=== PATIENT | female | born 1945 | race Caucasian/White ===

== ENCOUNTER 2021-02-13 10:23 | Inpatient (IN) | payer MEDICARE, OTHER ==
[~2021-02-13] VITALS: Ht 144.8 cm; Wt 72.5 kg
[~2021-02-13 10:23] MED LIST: DEXAMETHASONE SOD PHOS 4 MG/ML VIAL ONE; IV RINGERS,LACTATED 1000ML 1,000 ML IV SCH; LIDOCAINE 2% PF 5 ML VIAL. ONE; MORPHINE SULFATE 2 MG/ML INJ. IVP PRN; ONDANSETRON PF 4 MG/2 ML VIAL. ONE; PROCHLORPERAZINE 10 MG/2 ML VIAL. IVP PRN; PROPOFOL 10 MG/ML (20ML) VIAL. IV ONE; ROCURONIUM 50 MG/5 ML VIAL. ONE; SUCCINYLCHOLINE 200 MG/10 ML VIAL. ONE; ceFAZolin SODIUM IV Push 1 GM VIAL. IVP PRN; fentaNYL PF VIAL 100 MCG/2 ML VIAL IVP PRN; fentaNYL PF VIAL 100 MCG/2 ML VIAL ONE
[2021-02-13 11:08] VITALS: BP 139/65
--- NOTE | 2021-02-13 11:48 | PDOC1 ---
History and Physical Date of Admission Date of Admission DATE: 02/13/21 TIME: 11:45 History of Present Illness History of Present Illness The patient is a 75 year old female who was referred with a large ventral hernia. Past Medical History Past Medical History rheumatoid arthritis, depression, hypertension, breast cancer Past Surgical History Past Surgical History sigmoid colectomy with colostomy, colostomy takedown, hernia repair, lumpectomy, hysterectomy Social History Smoke: Quit Current Medications Current Medications Current Medications Fentanyl Citrate (Fentanyl 2ml Vial) 25 mcg PRN Q5MIN PRN IVP MILD PAIN 1-3; Start 02/13/21 at 06:00; Stop 02/14/21 at 05:59; Status UNV Fentanyl Citrate (Fentanyl 2ml Vial) 50 mcg PRN Q5MIN PRN IVP MODERATE PAIN 4- 6; Start 02/13/21 at 06:00; Stop 02/14/21 at 05:59; Status UNV Morphine Sulfate (Morphine Sulfate) 1 mg PRN Q10MIN PRN IVP SEVERE PAIN 7-10; Start 02/13/21 at 06:00; Stop 02/14/21 at 05:59; Status UNV Ringer's Solution 1,000 ml @ 30 mls/hr Q24H IV ; Start 02/13/21 at 06:00; Stop 02/13/21 at 17:59; Status UNV Hydromorphone HCl (Dilaudid) 0.5 mg PRN Q10MIN PRN IVP SEVERE PAIN 7-10, 2nd CHOICE; Start 02/13/21 at 06:00; Stop 02/14/21 at 05:59; Status UNV Prochlorperazine Edisylate (Compazine) 5 mg PACU PRN PRN IVP NAUSEA, MRX1; Start 02/13/21 at 06:00; Stop 02/14/21 at 05:59; Status UNV Propofol (Diprivan) 200 mg STK-MED ONCE IV ; Start 02/13/21 at 09:36; Stop 02/13/21 at 09:36; Status DC Lidocaine HCl (Lidocaine Pf 2% Vial) 5 ml STK-MED ONCE .ROUTE ; Start 02/13/21 at 09:36; Stop 02/13/21 at 09:36; Status DC Dexamethasone Sodium Phosphate (Decadron) 4 mg STK-MED ONCE .ROUTE ; Start 02/13/21 at 09:36; Stop 02/13/21 at 09:36; Status DC Ondansetron HCl (Zofran) 4 mg STK-MED ONCE .ROUTE ; Start 02/13/21 at 09:36; Stop 02/13/21 at 09:36; Status DC Rocuronium [place] (Zemuron) 50 mg STK-MED ONCE .ROUTE ; Start 02/13/21 at 09:36; Stop 02/13/21 at 09:36; Status DC Succinylcholine Chloride (Anectine) 200 mg STK-MED ONCE .ROUTE ; Start 02/13/21 at 09:38; Stop 02/13/21 at 09:38; Status DC Cefazolin Sodium/ Dextrose 0 ml @ As Directed STK-MED ONCE IV ; Start 02/13/21 at 09:45; Stop 02/13/21 at 09:45; Status DC Cefazolin Sodium (Ancef) 1 gm 1X PREOP PRN IVP PRIOR TO PROCEDURE; Start 02/13/21 at 10:00; Status UNV ROS General: No: Chills, Night Sweats, Fatigue, Malaise, Appetite, Other PSYCHOLOGICAL ROS: No: Anxiety, Behavioral Disorder, Concentration difficultie, Decreased libido, Depression, Disorientation, Hallucinations, Hostility, Irritablity, Memory difficulties, Mood Swings, Obsessive thoughts, Physical abuse, Sexual abuse, Sleep disturbances, Suicidal ideation, Other Eyes: No Blurry vision, No Decreased vision, No Double vision, No Dry eyes, No Excessive tearing, No Eye Pain, No Itchy Eyes, No Loss of vision, No Photophobia, No Scotomata, No Uses contacts, No Uses glasses, No Other HEENT: No: Heacaches, Visual Changes, Hearing change, Nasal congestion, Nasal discharge, Oral lesions, Sinus pain, Sore Throat, Epistaxis, Sneezing, Snoring, Tinnitus, Vertigo, Vocal changes, Other ALLERGY AND IMMUNOLOGY: No: Hives, Insect Bite Sensitivity, Itchy/Watery Eyes, Nasal Congestion, Post Nasal Drip, Seasonal Allergies, Other Hematological and Lymphatic: No: Bleeding Problems, Blood Clots, Blood Transfusions, Brusing, Night Sweats, Pallor, Swollen Lymph Nodes, Other ENDOCRINE: No: Breast Changes, Galactorrhea, Hair Pattern Changes, Hot Flashes, Malaise/lethargy, Mood Swings, Palpitations, Polydipsia/polyuria, Skin Changes, Temperature Intolerance, Unexpected Weight Changes, Other Breast: No New/Changing Breast Lumps, No Nipple changes, No Nipple discharge, No Other Respiratory: No: Cough, Hemoptysis, Orthopnea, Pleuritic Pain, Shortness of breath, SOB with excertion, Sputum Changes, Stridor, Tachypnea, Wheezing, Other Cardiovascular: No Chest Pain, No Palpitations, No Orthopnea, No Paroxysmal Noc. Dyspnea, No Edema, No Lt Headedness, No Other Gastrointestinal: No Nausea, No Vomiting, No Abdominal Pain, No Diarrhea, No Constipation, No Melena, No Hematochezia, No Other Genitourinary: No Dysuria, No Frequency, No Incontinence, No Hematuria, No Retention, No Discharge, No Urgency, No Pain, No Flank Pain, No Other, No , No , No , No , No , No , No Musculoskeletal: No Gait Disturbance, No Joint Pain, No Joint Stiffness, No Joint Swelling, No Muscle Pain, No Muscular Weakness, No Pain In:, No Swelling In:, No Other Neurological: No Behavorial Changes, No Bowel/Bladder ControlChng, No Confusion, No Dizziness, No Gait Disturbance, No Headaches, No Impaired Coord/balance, No Memory Loss, No Numbness/Tingling, No Seizures, No Speech Problems, No Tremors, No Visual Changes, No Weakness, No Other Skin: No Dry Skin, No Eczema, No Hair Changes, No Lumps, No Mole Changes, No Mo ttling, No Nail Changes, No Pruritus, No Rash, No Skin Lesion Changes, No Other, No Acne Physical Exam General: Alert, Oriented X3, Cooperative HEENT: Atraumatic Heart: RRR Abdomen: Soft (large ventral hernia palpable) Extremities: No clubbing, No cyanosis Skin: No rashes, No breakdown Neuro: Normal speech Psych/Mental Status: Mental status NL Vitals Vitals Vital Signs Date Time Temp Pulse Resp B/P (MAP) Pulse Ox O2 Delivery O2 Flow Rate FiO2 02/13/21 11:13 97.3 77 18 139/65 98 Room Air 97.3 VTE Prophylaxis Ordered VTE Prophylaxis Devices: No VTE Pharmacological Prophylaxi: Yes Assessment/Plan Assessment/Plan Plan for ventral hernia repair with mesh, likely to need a component separation. The details and risks of surgery were discussed with the patient. She understands and would like to proceed. Justifications for Admission Other Justification RAO PATTON MD Feb 13, 2021 11:48
[2021-02-13] MEDS ORDERED: fentaNYL PF VIAL 100 MCG/2 ML VIAL ONE ×2 (12:53→17:45)
[2021-02-13] MEDS ORDERED: ROCURONIUM 50 MG/5 ML VIAL. ONE (13:53)
[2021-02-13] MEDS ORDERED: HYDROmorphone 2 MG/ML VIAL ONE ×2 (15:42→17:45)
[2021-02-13] MEDS ORDERED: NEOSTIGMINE METHYLSULFATE 5 MG/5 ML SYRINGE. ONE (16:33)
[2021-02-13] MEDS ORDERED: GLYCOPYRROLATE 1 MG/5 ML VIAL. ONE (16:33)
--- NOTE | 2021-02-13 17:12 | PDOC4 ---
Operative Note Operative Note Operative Note: Preoperative Diagnosis: Ventral hernia Postoperative Diagnosis: Same Procedure: Ventral hernia repair with mesh, abdominal component separation Surgeon: [facility] Counsellor: Denisa Franklin FA Anesthesia: General EBL: 100 mL Specimen: None Drains: 19 Iraqi MILTON drain x2 Complications: None Indication: The patient is a 75-year-old female who is referred with multiple sizable abdominal hernias. She was offered surgical repair and the use of mesh was discussed. The risks of surgery were noted also which include bleeding, infection, recurrence, pain, mesh reaction, visceral injury, wound healing problems, anesthetic risk, potential need for additional surgery procedure. She understands and would like to proceed. In addition she is aware that she will likely require complete abdominal reconstruction due to the extensive nature of her hernias. Description: The patient was taken to the operating room and placed supine in the operating table. General anesthesia was performed. The abdomen is prepped with ChloraPrep and draped with sterile towels, sheets, and an Ioban. A vertical midline incision was made in the skin with a scalpel. Cautery dissection was carried down to the fascia. Complete anterior fascial dissection was performed with cautery allowing for full inspection. There was essentially complete breakdown of her midline with marked lateralization of her rectus muscles. The larger hernia sac was opened and the abdominal cavity was entered. An extensive lysis of adhesions was required to free up the anterior abdominal wall. There were multiple loops of small bowel and omentum that were densely adherent. The lysis of adhesions took approximately 1 to 1-1/2 hours. Following this we then performed a posterior component separation. The posterior fascial was mobilized bilaterally. We carried this dissection laterally as far as possible. We attempted to divide the transversus musculature however the patient had marked atrophy of her posterior layer. We were able to mobilize the posterior fascial layer laterally sufficient for closure of the posterior fascia for the majority of the abdomen. Along the inferior aspect the posterior layer was markedly degraded due to multiple prior surgeries. The posterior layer was developed superiorly to the level of the xiphoid and inferiorly to the pubic bone by means of the space of Retzius. A 27.[address] X 34[address] mesh was then placed over the posterior fascial layer. The mesh was sutured into position around its periphery using interrupted 0 Prolene stitches. Additional fixation to the anterior abdominal layer was performed using dissolvable tacks. The anterior fascia layer was then approximated over the mesh with running 1 PDS suture. Two 19 [place] MILTON drains were left over the anterior layer which exited the right and left lateral abdomen. They were secured to the skin with 2-0 silk. The deep subcutaneous tissue was approximated with interrupted 0 Vicryl sutures. The more superficial subcutaneous tissue was closed with 3-0 Vicryl. The skin was approximated with 4-0 Monocryl. Steri-Strips and a dressing were applied. The patient tolerated the procedure well and was sent to the recovery room in stable condition. At the end the case all counts were correct RAO PATTON MD Feb 13, 2021 17:12
[2021-02-13] MEDS ORDERED: NALOXONE 0.4 MG/ML VIAL. IV PRN (17:15)
[2021-02-13] MEDS ORDERED: 0.9 % SODIUM CHLORIDE 10 ML DISP.SYRIN. IV PRN (17:15)
[2021-02-13] MEDS: IV NORMAL SALINE 1000ML BAG 1,000 ML IV SCH (17:15)
--- NOTE | 2021-02-13 17:22 | RAD ---
Exam: Abdomen one view INDICATION: Postoperative abdominal operation, incorrect count TECHNIQUE: Supine view the abdomen Comparisons: None FINDINGS: There are 2 intra-abdominal drains noted within the abdomen. No other radiopaque foreign bodies are i dentified. Bowel gas pattern is nonobstructive. No suspicious masses or calcifications. Visualized osseous structures are unremarkable. IMPRESSION: No unexpected radiopaque foreign body identified. Electronically signed by: Moira Durham MD (02/13/2021 5:19 PM) DIONISIO
[2021-02-13] MEDS: ENOXAPARIN 40 MG/0.4 ML SYRINGE. SQ SCH (18:00)
[2021-02-13] MEDS: HYDROmorphone 2 MG/ML VIAL IVP PRN ×2 (18:02→18:18)
[2021-02-13] MEDS: fentaNYL PF VIAL 100 MCG/2 ML VIAL IVP PRN ×2 (18:11→18:23)
[2021-02-13 18:40] VITALS: BP 112/33
[2021-02-13 19:00] VITALS: BP 117/42
[2021-02-13] MEDS: IV 1/2 NORMAL SALINE 1,000 ML IV SCH (20:37)
[2021-02-13 23:00] VITALS: BP 155/62
[2021-02-13] MEDS: HYDROmorphone 12mg/30ml PCA 30 ML IV PRN (23:54)
[2021-02-14 03:00] VITALS: BP 143/57
[2021-02-14] MEDS: IV 1/2 NORMAL SALINE 1,000 ML IV SCH ×3 (03:15→18:09)
--- NOTE | 2021-02-14 04:04 | NUR ---
Patient in room upon this nurses arrival. Report received via day shift regarding ventral hernia repair today with Dr. Jung. Patient has midline surgical dressing to abdomen which is clean, dry and intact. MILTON drain to left lateral abdomen and right lateral abdomen, both draining sanguineous colored fluids. Left drain producing more than right. This nurse emptied 90ml at 2000, 60ml at 2100 and 60ml at 2200, all from left MILTON drain. Patient drowsy at 1930, answering yes and no questions. She became more alert through shift and required multiple education sessions on using SENIOR LIVING ADVISOR pump effectively. Patient resting comfortably at this time in bed. She has tolerated ice chips and sips of water per MD orders. was present upon arrival and is primary patient care nursing assistant. Patient is alert et oriented x 4 upon waking.
--- NOTE | 2021-02-14 05:59 | NUR ---
Left message with answering service reporting out put of 300ml from right MILTON drain and 10ml from right MILTON drain. Spoke with Dr. Bazzi, no new orders.
[2021-02-14 07:16] LABS: CALCIUM 7.9 mg/dL (8.5-10.1); CREATININE 1.3 mg/dL (0.6-1.0); GFR 39.7; POTASSIUM 4.4 mmol/L (3.5-5.1)
[2021-02-14 07:28] VITALS: BP 140/51
[2021-02-14] MEDS: IV NORMAL SALINE 1000ML BAG 1,000 ML IV SCH (08:02)
[2021-02-14] MEDS ORDERED: KETOROLAC 15 MG/ML VIAL. IVP ONE (09:15)
--- NOTE | 2021-02-14 10:01 | NUR ---
SW following. Discussed with RN, pt from home, 3L (does not use oxygen at home), NPO. Pt had surgery 02/13/21. Pain control. RN advised no SW needs at this time. SW will continue to follow.
[2021-02-14 10:49] VITALS: BP 135/53
--- NOTE | 2021-02-14 11:05 | PDOC ---
PROGRESS NOTES Date of Service DATE: 02/14/21 TIME: 11:04 Subjective Subjective significant pain Objective Objective Vital Signs Date Time Temp Pulse Resp B/P (MAP) Pulse Ox O2 Delivery O2 Flow Rate FiO2 02/14/21 10:49 98.9 102 20 135/53 (80) 93 Nasal Cannula 3.0 98.9 Intake and Output 02/14/21 07:00 Intake Total 200 ml Output Total 1170 ml Balance -970 ml Intake Oral 200 ml Output Urine Total 600 ml Drainage Total 370 ml Estimated Blood Loss 200 ml Physical Exam Abdomen: Soft (MILTON drains serosanguinous) Assessment Assessment S/P VHR, component separation Plan Plan of Care Out of bed, keep calhoun in for now until able to mobilize better, physical therapy, pain control Comment Review of Relevant I have reviewed the following items keely (where applicable) has been applied. Labs Laboratory Tests Test 02/13/21 20:29 02/14/21 06:15 Glucose (Fingerstick) 160 mg/dL (70-99) Sodium Level 139 mmol/L (136-145) Potassium Level 4.4 mmol/L (3.5-5.1) Chloride Level 106 mmol/L (98-107) Carbon Dioxide Level 24 mmol/L (21-32) Anion Gap 9 (6-14) Blood Urea Nitrogen 20 mg/dL (7-20) Creatinine 1.3 mg/dL (0.6-1.0) Estimated GFR (Cockcroft-Gault) 39.7 Glucose Level 183 mg/dL (70-99) Calcium Level 7.9 mg/dL (8.5-10.1) Laboratory Tests Test 02/13/21 20:29 02/14/21 06:15 Glucose (Fingerstick) 160 mg/dL (70-99) Sodium Level 139 mmol/L (136-145) Potassium Level 4.4 mmol/L (3.5-5.1) Chloride Level 106 mmol/L (98-107) Carbon Dioxide Level 24 mmol/L (21-32) Anion Gap 9 (6-14) Blood Urea Nitrogen 20 mg/dL (7-20) Creatinine 1.3 mg/dL (0.6-1.0) Estimated GFR (Cockcroft-Gault) 39.7 Glucose Level 183 mg/dL (70-99) Calcium Level 7.9 mg/dL (8.5-10.1) Medications Current Medications Fentanyl Citrate (Fentanyl 2ml Vial) 25 mcg PRN Q5MIN PRN IVP MILD PAIN 1-3 Last administered on 02/13/21at 18:23; Start 02/13/21 at 06:00; Stop 02/13/21 at 21:00; Status DC Fentanyl Citrate (Fentanyl 2ml Vial) 50 mcg PRN Q5MIN PRN IVP MODERATE PAIN 4-6 Last administered on 02/13/21at 17:53; Start 02/13/21 at 06:00; Stop 02/13/21 at 21:00; Status DC Morphine Sulfate (Morphine Sulfate) 1 mg PRN Q10MIN PRN IVP SEVERE PAIN 7-10; Start 02/13/21 at 06:00; Stop 02/13/21 at 21:00; Status DC Ringer's Solution 1,000 ml @ 30 mls/hr Q24H IV ; Start 02/13/21 at 06:00; Stop 02/13/21 at 18:00; Status DC Hydromorphone HCl (Dilaudid) 0.5 mg PRN Q10MIN PRN IVP SEVERE PAIN 7-10, 2nd CHOICE Last administered on 02/13/21at 18:18; Start 02/13/21 at 06:00; Stop 02/13/21 at 21:00; Status DC Prochlorperazine Edisylate (Compazine) 5 mg PACU PRN PRN IVP NAUSEA, MRX1; Start 02/13/21 at 06:00; Stop 02/13/21 at 21:00; Status DC Propofol (Diprivan) 200 mg STK-MED ONCE IV ; Start 02/13/21 at 09:36; Stop 02/13/21 at 09:36; Status DC Lidocaine HCl (Lidocaine Pf 2% Vial) 5 ml STK-MED ONCE .ROUTE ; Start 02/13/21 at 09:36; Stop 02/13/21 at 09:36; Status DC Dexamethasone Sodium Phosphate (Decadron) 4 mg STK-MED ONCE .ROUTE ; Start 02/13/21 at 09:36; Stop 02/13/21 at 09:36; Status DC Ondansetron HCl (Zofran) 4 mg STK-MED ONCE .ROUTE ; Start 02/13/21 at 09:36; Stop 02/13/21 at 09:36; Status DC Rocuronium [place] (Zemuron) 50 mg STK-MED ONCE .ROUTE ; Start 02/13/21 at 09:36; Stop 02/13/21 at 09:36; Status DC Succinylcholine Chloride (Anectine) 200 mg STK-MED ONCE .ROUTE ; Start 02/13/21 at 09:38; Stop 02/13/21 at 09:38; Status DC Cefazolin Sodium/ Dextrose 0 ml @ As Directed STK-MED ONCE IV ; Start 02/13/21 at 09:45; Stop 02/13/21 at 09:45; Status DC Cefazolin Sodium (Ancef) 1 gm 1X PREOP PRN IVP PRIOR TO PROCEDURE; Start 02/13/21 at 10:00; Stop 02/13/21 at 15:08; Status DC Fentanyl Citrate (Fentanyl 2ml Vial) 100 mcg STK-MED ONCE .ROUTE ; Start 02/13/21 at 12:53; Stop 02/13/21 at 12:53; Status DC Rocuronium [place] (Zemuron) 50 mg STK-MED ONCE .ROUTE ; Start 02/13/21 at 13:53; Stop 02/13/21 at 13:54; Status DC Fentanyl Citrate (Fentanyl 2ml Vial) 100 mcg STK-MED ONCE .ROUTE ; Start 02/13/21 at 09:38; Stop 02/13/21 at 15:05; Status DC Hydromorphone HCl (Dilaudid) 2 mg STK-MED ONCE .ROUTE ; Start 02/13/21 at 15:42; Stop 02/13/21 at 15:43; Status DC Glycopyrrolate (Robinul) 1 mg STK-MED ONCE .ROUTE ; Start 02/13/21 at 16:33; Stop 02/13/21 at 16:33; Status DC Neostigmine [place] (Neostigmine Methylsulfate) 5 mg STK-MED ONCE .ROUTE ; Start 02/13/21 at 16:33; Stop 02/13/21 at 16:33; Status DC Enoxaparin Sodium (Lovenox 40mg Syringe) 40 mg Q24H SQ ; Start 02/13/21 at 18:00 Sodium Chloride (Normal Saline Flush) 3 ml QSHIFT PRN IV AFTER MEDS AND BLOOD DRAWS; Start 02/13/21 at 17:15 Sodium Chloride 1,000 ml @ 100 mls/hr Q10H IV Last administered on 02/14/21at 08:07; Start 02/13/21 at 17:15 Naloxone HCl (Narcan) 0.4 mg PRN Q2MIN PRN IV SEE INSTRUCTIONS; Start 02/13/21 at 17:15 Sodium Chloride 1,000 ml @ 25 mls/hr Q24H IV ; Start 02/13/21 at 17:15 Hydromorphone HCl 30 ml @ 0 mls/hr CONT PRN PRN IV PER PROTOCOL Last administered on 02/13/21at 23:54; Start 02/13/21 at 17:15 Ondansetron HCl (Zofran) 4 mg PRN Q6HRS PRN IVP NAUESA, 1ST CHOICE; Start 02/13/21 at 17:15 Hydromorphone HCl (Dilaudid) 2 mg STK-MED ONCE .ROUTE ; Start 02/13/21 at 17:45; Stop 02/13/21 at 17:45; Status DC Fentanyl Citrate (Fentanyl 2ml Vial) 100 mcg STK-MED ONCE .ROUTE ; Start 02/13/21 at 17:45; Stop 02/13/21 at 17:46; Status DC Ketorolac Tromethamine (Toradol 15mg Vial) 15 mg 1X ONCE IVP Last administered on 02/14/21at 09:33; Start 02/14/21 at 09:15; Stop 02/14/21 at 09:19; Status DC Vitals/I & O Vital Sign - Last 24 Hours 02/13/21 02/13/21 02/13/21 02/13/21 11:08 11:13 17:24 17:53 Temp 97.3 97.3 97.7 97.3 97.3 97.7 Pulse 77 77 79 Resp 18 18 16 16 B/P (MAP) 139/65 113/57 Pulse Ox 98 98 97 97 O2 Delivery Room Air Simple Mask Simple Mask O2 Flow Rate 10 6.0 02/13/21 02/13/21 02/13/21 02/13/21 17:54 18:02 18:11 18:18 Pulse 95 Resp 14 14 16 16 B/P (MAP) 123/33 Pulse Ox 98 98 98 98 O2 Delivery Simple Mask Simple Mask BiPAP/CPAP Simple Mask O2 Flow Rate 6.0 6.0 3.0 3.0 02/13/21 02/13/21 02/13/21 02/13/21 18:23 18:40 19:00 20:10 Temp 98.4 98.4 Pulse 109 108 Resp 16 16 B/P (MAP) 112/33 (59) 117/42 (67) Pulse Ox 98 93 91 O2 Delivery Nasal Cannula Nasal Cannula Room Air Nasal Cannula O2 Flow Rate 3.0 3.0 2.0 02/13/21 02/13/21 02/13/21 02/13/21 20:30 20:31 20:32 20:33 Resp 16 16 16 Pulse Ox 93 95 O2 Delivery Nasal Cannula Room Air Room Air Simple Mask O2 Flow Rate 2.0 3.0 02/13/21 02/13/21 02/13/21 02/13/21 20:33 20:34 23:00 23:54 Temp 98.0 98.0 Pulse 111 Resp 16 16 16 B/P (MAP) 155/62 (93) Pulse Ox 95 95 94 O2 Delivery Room Air Room Air Nasal Cannula Nasal Cannula O2 Flow Rate 2.0 2.0 02/14/21 02/14/21 02/14/21 02/14/21 00:58 03:00 07:28 08:00 Temp 97.7 97.9 97.7 97.9 Pulse 108 110 Resp 16 16 22 B/P (MAP) 143/57 (85) 140/51 (80) Pulse Ox 2 96 94 O2 Delivery Nasal Cannula Nasal Cannula Nasal Cannula Nasal Cannula O2 Flow Rate 3.0 3.0 3.0 02/14/21 10:49 Temp 98.9 98.9 Pulse 102 Resp 20 B/P (MAP) 135/53 (80) Pulse Ox 93 O2 Delivery Nasal Cannula O2 Flow Rate 3.0 Intake and Output 02/13/21 02/13/21 02/14/21 15:00 23:00 07:00 Intake Total 200 ml Output Total 630 ml 540 ml Balance -630 ml -340 ml Justifications for Admission Other Justification RAO PATTON MD Feb 14, 2021 11:05
[2021-02-14] MEDS: ONDANSETRON PF 4 MG/2 ML VIAL. IVP PRN (14:00)
--- NOTE | 2021-02-14 14:41 | NUR ---
Patients brought in her old medication bottle labeled as hydrocodone/chlorpheniramine (Tussionex) and stated that this medication works best for the patient. Spoke with Dr. Jung and notified him of the of the medication.
[2021-02-14 14:51] VITALS: BP 135/55
[2021-02-14] MEDS: ENOXAPARIN 40 MG/0.4 ML SYRINGE. SQ SCH (18:10)
[2021-02-14 19:00] VITALS: BP 127/49
[2021-02-14 23:00] VITALS: BP 140/49
[2021-02-14] MEDS ORDERED: INFLUENZA VAX SCREEN BY RX. MC PRN (23:30)
[2021-02-15] VITALS (9 sets, daily range): BP systolic 104–148; BP diastolic 44–62
[2021-02-15] MEDS: ONDANSETRON PF 4 MG/2 ML VIAL. IVP PRN (02:24)
[2021-02-15] MEDS: IV 1/2 NORMAL SALINE 1,000 ML IV SCH ×2 (03:10→13:11)
[2021-02-15] MEDS ORDERED: PRED2.5T PO (10:13)
[2021-02-15] MEDS ORDERED: DULO30CA2 PO (10:13)
[2021-02-15] MEDS ORDERED: DENO60DI SQ (10:13)
[2021-02-15] MEDS ORDERED: ESOM40CA PO (10:13)
[2021-02-15] MEDS ORDERED: METO25TA4 PO (10:13)
[2021-02-15] MEDS ORDERED: LISI10TA16 PO (10:13)
[2021-02-15] MEDS ORDERED: CYAN25008 PO (10:13)
[2021-02-15] MEDS ORDERED: CALC-495 PO (10:13)
[2021-02-15] MEDS ORDERED: WHEA1POW8 PO (10:13)
[2021-02-15] MEDS ORDERED: ALPR0.254 PO (10:13)
[2021-02-15] MEDS ORDERED: HYDR-2761 PO (10:13)
[2021-02-15] MEDS ORDERED: FOLI0.8T5 PO (10:13)
[2021-02-15] MEDS ORDERED: GABA100C6 PO (10:13)
[2021-02-15] MEDS ORDERED: LEFL10TA19 PO (10:13)
[2021-02-15] MEDS ORDERED: CITA10TA8 PO (10:13)
--- NOTE | 2021-02-15 12:31 | PDOC ---
PROGRESS NOTES Date of Service DATE: 02/15/21 TIME: 12:27 Subjective Subjective pt sleepy at the moment, states she was active with therapy today Objective Objective Vital Signs Date Time Temp Pulse Resp B/P (MAP) Pulse Ox O2 Delivery O2 Flow Rate FiO2 02/15/21 11:00 97.3 108 20 107/62 (77) 92 Nasal Cannula 3.0 97.3 Intake and Output 02/15/21 07:00 Intake Total 200 ml Output Total 750 ml Balance -550 ml Intake Oral 200 ml Output Urine Total 600 ml Drainage Total 150 ml Physical Exam Abdomen: Soft (MILTON with serosang output) Assessment Assessment S/P VHR Plan Plan of Care DC lj, continue with mobilization, probably will try clears tomorrow Comment Review of Relevant I have reviewed the following items keely (where applicable) has been applied. Labs Laboratory Tests Test 02/13/21 20:29 02/14/21 06:15 Glucose (Fingerstick) 160 mg/dL (70-99) Sodium Level 139 mmol/L (136-145) Potassium Level 4.4 mmol/L (3.5-5.1) Chloride Level 106 mmol/L (98-107) Carbon Dioxide Level 24 mmol/L (21-32) Anion Gap 9 (6-14) Blood Urea Nitrogen 20 mg/dL (7-20) Creatinine 1.3 mg/dL (0.6-1.0) Estimated GFR (Cockcroft-Gault) 39.7 Glucose Level 183 mg/dL (70-99) Calcium Level 7.9 mg/dL (8.5-10.1) Medications Current Medications Fentanyl Citrate (Fentanyl 2ml Vial) 25 mcg PRN Q5MIN PRN IVP MILD PAIN 1-3 Last administered on 02/13/21at 18:23; Start 02/13/21 at 06:00; Stop 02/13/21 at 21:00; Status DC Fentanyl Citrate (Fentanyl 2ml Vial) 50 mcg PRN Q5MIN PRN IVP MODERATE PAIN 4-6 Last administered on 02/13/21at 17:53; Start 02/13/21 at 06:00; Stop 02/13/21 at 21:00; Status DC Morphine Sulfate (Morphine Sulfate) 1 mg PRN Q10MIN PRN IVP SEVERE PAIN 7-10; Start 02/13/21 at 06:00; Stop 02/13/21 at 21:00; Status DC Ringer's Solution 1,000 ml @ 30 mls/hr Q24H IV ; Start 02/13/21 at 06:00; Stop 02/13/21 at 18:00; Status DC Hydromorphone HCl (Dilaudid) 0.5 mg PRN Q10MIN PRN IVP SEVERE PAIN 7-10, 2nd CHOICE Last administered on 02/13/21at 18:18; Start 02/13/21 at 06:00; Stop at 21:00; Status DC Prochlorperazine Edisylate (Compazine) 5 mg PACU PRN PRN IVP NAUSEA, MRX1; Start 02/13/21 at 06:00; Stop 02/13/21 at 21:00; Status DC Propofol (Diprivan) 200 mg STK-MED ONCE IV ; Start 02/13/21 at 09:36; Stop 02/13/21 at 09:36; Status DC Lidocaine HCl (Lidocaine Pf 2% Vial) 5 ml STK-MED ONCE .ROUTE ; Start 02/13/21 at 09:36; Stop 02/13/21 at 09:36; Status DC Dexamethasone Sodium Phosphate (Decadron) 4 mg STK-MED ONCE .ROUTE ; Start 02/13/21 at 09:36; Stop 02/13/21 at 09:36; Status DC Ondansetron HCl (Zofran) 4 mg STK-MED ONCE .ROUTE ; Start 02/13/21 at 09:36; Stop 02/13/21 at 09:36; Status DC Rocuronium [place] (Zemuron) 50 mg STK-MED ONCE .ROUTE ; Start 02/13/21 at 09:36; Stop 02/13/21 at 09:36; Status DC Succinylcholine Chloride (Anectine) 200 mg STK-MED ONCE .ROUTE ; Start 02/13/21 at 09:38; Stop 02/13/21 at 09:38; Status DC Cefazolin Sodium/ Dextrose 0 ml @ As Directed STK-MED ONCE IV ; Start 02/13/21 at 09:45; Stop 02/13/21 at 09:45; Status DC Cefazolin Sodium (Ancef) 1 gm 1X PREOP PRN IVP PRIOR TO PROCEDURE; Start 02/13/21 at 10:00; Stop 02/13/21 at 15:08; Status DC Fentanyl Citrate (Fentanyl 2ml Vial) 100 mcg STK-MED ONCE .ROUTE ; Start 02/13/21 at 12:53; Stop 02/13/21 at 12:53; Status DC Rocuronium [place] (Zemuron) 50 mg STK-MED ONCE .ROUTE ; Start 02/13/21 at 13:53; Stop 02/13/21 at 13:54; Status DC Fentanyl Citrate (Fentanyl 2ml Vial) 100 mcg STK-MED ONCE .ROUTE ; Start 02/13/21 at 09:38; Stop 02/13/21 at 15:05; Status DC Hydromorphone HCl (Dilaudid) 2 mg STK-MED ONCE .ROUTE ; Start 02/13/21 at 15:42; Stop 02/13/21 at 15:43; Status DC Glycopyrrolate (Robinul) 1 mg STK-MED ONCE .ROUTE ; Start 02/13/21 at 16:33; Stop 02/13/21 at 16:33; Status DC Neostigmine [place] (Neostigmine Methylsulfate) 5 mg STK-MED ONCE .ROUTE ; Start 02/13/21 at 16:33; Stop 02/13/21 at 16:33; Status DC Enoxaparin Sodium (Lovenox 40mg Syringe) 40 mg Q24H SQ Last administered on 02/14/21at 18:10; Start 02/13/21 at 18:00 Sodium Chloride (Normal Saline Flush) 3 ml QSHIFT PRN IV AFTER MEDS AND BLOOD DRAWS; Start 02/13/21 at 17:15 Sodium Chloride 1,000 ml @ 100 mls/hr Q10H IV Last administered on 02/15/21at 03:10; Start 02/13/21 at 17:15 Naloxone HCl (Narcan) 0.4 mg PRN Q2MIN PRN IV SEE INSTRUCTIONS; Start 02/13/21 at 17:15 Sodium Chloride 1,000 ml @ 25 mls/hr Q24H IV ; Start 02/13/21 at 17:15 Hydromorphone HCl 30 ml @ 0 mls/hr CONT PRN PRN IV PER PROTOCOL Last a dministered on 02/13/21at 23:54; Start 02/13/21 at 17:15 Ondansetron HCl (Zofran) 4 mg PRN Q6HRS PRN IVP NAUESA, 1ST CHOICE Last administered on 02/15/21at 02:24; Start 02/13/21 at 17:15 Hydromorphone HCl (Dilaudid) 2 mg STK-MED ONCE .ROUTE ; Start 02/13/21 at 17:45; Stop 02/13/21 at 17:45; Status DC Fentanyl Citrate (Fentanyl 2ml Vial) 100 mcg STK-MED ONCE .ROUTE ; Start 02/13/21 at 17:45; Stop 02/13/21 at 17:46; Status DC Ketorolac Tromethamine (Toradol 15mg Vial) 15 mg 1X ONCE IVP Last administered on 02/14/21at 09:33; Start 02/14/21 at 09:15; Stop 02/14/21 at 09:19; Status DC Info (FLU VACCINE SCREEN per RX) 1 each PRN DAILY PRN MC SEE COMMENTS; Start 02/14/21 at 23:30 Active Scripts Active Reported Vitamin B12 (Cyanocobalamin (Vitamin B-12)) 2,500 Mcg Tablet 500 Mg PO BID Nexium Capsule (Esomeprazole Magnesium) 40 Mg Capsule. 1 Cap PO BID Calcium 600 + Vit D 800 Tab (Calcium Carbonate/Vitamin D3) 1 Each Tablet 1 Tab PO BID 30 Days Benefiber (Wheat Dextrin) 1 Each Powd.pack 1 Each PO DAILY Lisinopril 10 Mg Tablet 1 Tab PO DAILY Leflunomide 10 Mg Tablet 10 Mg PO DAILY Prednisone 2.5 Mg Tablet 5 Mg PO DAILY Metoprolol Tartrate 25 Mg Tablet 1 Tab PO DAILY Hydrocodone-Apap 5-325 (Hydrocodone Bit/Acetaminophen) 1 Tab Tablet 1 Tab PO PRN BID PRN Gabapentin 100 Mg Capsule 100 Mg PO PRN BID PRN Folic Acid 0.8 Mg Tablet 3 Mg PO DAILY Cymbalta (Duloxetine Hcl) 30 Mg Capsule. 1 Cap PO DAILY Prolia (Denosumab) 60 Mg/1 Ml Disp.syrin 1 Syr SQ [id number] 1 Days Celexa (Citalopram Hydrobromide) 10 Mg Tablet 1 Tab PO DAILY Alprazolam 0.25 Mg Tablet 0.25 Mg PO PRN DAILY PRN Vitals/I & O Vital Sign - Last 24 Hours 02/14/21 02/14/21 02/14/21 02/14/21 14:51 19:00 20:00 23:00 Temp 98.2 98.6 97.8 98.2 98.6 97.8 Pulse 110 117 117 Resp 18 24 B/P (MAP) 135/55 (81) 127/49 (75) 140/49 (79) Pulse Ox 95 91 92 O2 Delivery Nasal Cannula Nasal Cannula Nasal Cannula Nasal Cannula O2 Flow Rate 3.0 3.0 2.0 3.0 02/15/21 02/15/21 02/15/21 02/15/21 03:00 07:00 08:15 11:00 Temp 98.6 97.7 97.3 98.6 97.7 97.3 Pulse 121 119 108 Resp 20 20 B/P (MAP) 134/44 (74) 137/48 (77) 107/62 (77) Pulse Ox 93 92 92 O2 Delivery Nasal Cannula Nasal Cannula Nasal Cannula Nasal Cannula O2 Flow Rate 3.0 3.0 3.0 3.0 Intake and Output 02/14/21 02/14/21 02/15/21 15:00 23:00 07:00 Intake Total 0 ml 200 ml Output Total 50 ml 430 ml 270 ml Balance -50 ml -230 ml -270 ml Justifications for Admission Other Justification RAO PATTON MD Feb 15, 2021 12:31
[2021-02-15] MEDS: IV NORMAL SALINE 1000ML BAG 1,000 ML IV SCH (13:10)
[2021-02-15 13:23] LABS: BASO % 0 % (0-3); EOS % 0 % (0-3); HEMATOCRIT 33.1 % (36.0-47.0); HEMOGLOBIN 10.7 g/dL (12.0-15.5); LYMPH # 1.3 x10^3/uL (1.0-4.8); LYMPH % 10 % (24-48); MEAN CORPUSCULAR HEMOGLOBIN 29 pg (25-35); MEAN CORPUSCULAR HGB CONC 32 g/dL (31-37); MEAN CORPUSCULAR VOLUME 90 fL (79-100); MONO # 1.6 x10^3/uL (0.0-1.1); MONO % 12 % (0-9); NEUT # 10.3 x10^3/uL (1.8-7.7); NEUT % 78 % (31-73); PLATELET COUNT 212 x10^3/uL (140-400); RED BLOOD COUNT 3.67 x10^6/uL (3.50-5.40); RED CELL DISTRIBUTION WIDTH 15.1 % (11.5-14.5); WHITE BLOOD COUNT 13.3 x10^3/uL (4.0-11.0)
--- NOTE | 2021-02-15 13:31 | NUR ---
Patients left MILTON drain still draining more then the right. It is now more bloody then it was previously and Dr Jung was notified. Patient still with F[employer] GRAZIER pump which she has to be reminded to use at times due to increased pain. Dressing CDI to abdomen. brought in home medication list which was put in system for the doctor to review. Will continue to monitor.
--- NOTE | 2021-02-15 14:03 | NUR ---
Barraza catheter removed at 1400 per Doctors order without any complications. Will continue to monitor.
--- NOTE | 2021-02-15 17:12 | NUR ---
Wound/Ostomy Care Wound Type/Assessment: Patient seen per wound care consult. See wound assessment. Patient has a stage I PU to the right thigh. Wound cleansed, assessed, measured, and pictured. Wound is resolving and should heal within the next couple days Treatment Recommendations/Plan: Recommendations to paint with skin prep daily until healed. Education provided: Patient educated on skin prep and PU treatment and management, also at bedside. Offloading surface/device: Patient encouraged to assist with turning every 2 hours and pillows and wedge also used for offloading. Recommended Referrals/Tests: N/A Discharge Recommendations for dressings: Dressing change instructions left in room, no other wounds noted. Bed lowered and call light in reach. Wound care will follow up with patient on 02/20/21.
[2021-02-15] MEDS: ENOXAPARIN 40 MG/0.4 ML SYRINGE. SQ SCH (18:31)
--- NOTE | 2021-02-15 18:37 | NUR ---
Patients family concerned about her home medications being restarted. Dr Jiménez was spoken with who was precision lens grinder apprentice at 1815 today and stated they do not plan to restart her PO home meds at this time due to her lack of PO intake and abdominal surgery. Will continue to monitor.
--- NOTE | 2021-02-15 18:46 | NUR ---
Dr Jiménez paged again in regards to patients low end tidal CO2 level of 22 on her TRANSPORTATION SPECIALIST pump. Respirations around 20 and oxygen saturation 94%. He stated if her saturation is normal and her respirations are normal then the low level of 22 is not of concern at this time and just needs to be monitored. Patient able to awake upon command and alert to voice and movement at this time appropriately. She is drowsy but able to answer questions appropriately with some forgetfulness at times. Oncoming nurse notified who will monitor patient.
--- NOTE | 2021-02-15 19:00 | NUR ---
1900 VS checked and abnormal results recorded, noted patient CO2 is 20-22,RR is 25-30 with shortness of breathe at rest, HR 181, Rapid called .Family notified of this cahnged of patient's condition. Report given to GUILLAUME Wallis
[2021-02-15] MEDS ORDERED: ACETAMINOPHEN 500 MG TABLET PO ONE (20:15)
[2021-02-15 20:16] LABS: BASE EXCESS ABG -8 mmol/L (-3-3); HCO3 ABG 15 mmol/L (21-28); PCO2 ABG 26 mmHg (35-46); PO2 ABG 68 mmHg (65-108); SAT O2 ABG 93 % (92-99)
[2021-02-15 20:17] LABS: FIO2 ABG 32
[2021-02-15] MEDS: METOPROLOL IV PUSH 5 MG/5 ML VIAL. IVP PRN ×3 (20:19→20:46)
--- NOTE | 2021-02-15 21:01 | EKG ---
[facility] [address] [place] [address] Test Date: 2021-02-15 Test Time: 19:56:03 Pat Name: LYNDSEY JOSUE Department: Room: [facility] Gender: F Ug Designer: KAYKAY : 1945 Requested By: RAO PATTON Order Number: [id number] Reading MD: Measurements Intervals [place] Rate: 180 P: [place]: QRS: 19 QRSD: 114 T: 31 QT: 286 QTc: 502 Interpretive Statements SUPRAVENTRICULAR TACHYCARDIA R-S TRANSITION ZONE IN V LEADS DISPLACED TO THE RIGHT INCOMPLETE RIGHT BUNDLE BRANCH BLOCK RVH WITH REPOLARIZATION ABNORMALITY ABNORMAL ECG RI6.02 No previous ECG available for comparison
[2021-02-15] MEDS ORDERED: VANCOMYCIN PER PHARMACY MC PRN (21:30)
[2021-02-15] MEDS ORDERED: IV NORMAL SALINE 500ML BAG 500 ML IV ONE (21:30)
--- NOTE | 2021-02-15 21:30 | NUR ---
Pt transferred from [address] [place] [address] for elevated HR, metoprolol 5mg IV administered twice on [address] [place] [address] before transfer, Dr. Gordon consulted by general surgery. Pt seen at bedside by Dr. Caro and orders were changed for pt to be transferred to ICU for possible severe sepsis. Pts HR 140-160, O2% mid 90's on 2L, b/p 107/69. CXR, labs, consults, and abx ordered per Dr. Caro. Attempting second line for multiple medications, still unsuccessful. Will continue to monitor status changes until transfer to ICU.
[2021-02-15] MEDS ORDERED: IPRATROPIUM BROMIDE 0.5 MG/2.5 ML NEBU. NEB ONE (22:00)
[2021-02-15] MEDS ORDERED: CEFEPIME HCL IV Push 1 GM VIAL. IVP SCH (22:00)
[2021-02-15] MEDS ORDERED: VANCOMYCIN 1.75 GM in IV NORMAL SALINE 500ML BAG 500 ML IV ONE (22:00)
--- NOTE | 2021-02-15 22:34 | RAD ---
XR CHEST 1V Clinical History: Reason: dyspnea / Spl. Instructions: / History: Technique: AP view of the chest was obtained at 02/15/2021 9:25 PM. Comparison: None. Findings: There is hazy opacity in the lower left lung. The heart size is difficult to assess but is likely mil dly enlarged. There is low lung volumes causing crowding of pulmonary vasculature. The right hemidiap hragm is mildly elevated. There are surgical clips in left axilla consistent with prior left axillary dissection. Impression: Cardiomegaly and small left effusion adjacent infiltrate likely secondary to mild CHF. Electronically signed by: Linden Mcnally III, MD (02/15/2021 10:32 PM) [facility]
[2021-02-16] VITALS (19 sets, daily range): BP systolic 81–170; BP diastolic 36–78
--- NOTE | 2021-02-16 03:40 | NUR ---
Pharmacy Vancomycin Dosing Note S:Consulted to monitor and dose vancomycin started 02/15/21. O:LYNDSEY JOSUE is a 75 year old F with Sepsis . Height: 4 feet, 9 inches Weight: 72.727708 kg [place] Body Weight: 38.60 Adjusted Body Weight: 52.00 Dosing Weight: Actual Other Antibiotics: CEFEPIME 1 GM Q24H LABS: Last BUN: 20 Last Creatinine: 1.3 Creatinine Clearance: 32 mL/min Last WBC: 13.3 Last Procalcitonin: Tmax (past 24 hours): Microbiology: I/O: Drug Levels: Last level: on at Last dose given 02/15/21 at 2300 Vancomycin Dosing: Loading Dose: 1750 mg x1 Dosing Weight: Actual Target Trough: 15-20 A: Based on: WT AND CRCL P: 1. Begin Vancomycin 1000 mg IV q24h 2. Follow up Trough level on 02/17/21 at 2230 3. Pharmacy will continue to monitor, follow and adjust therapy as needed. BOZENA GOODMAN RPH, 02/16/21 0340 Signed: 02/16/21 at 0340 by BOZENA GOODMAN RPH PHA
[2021-02-16] MEDS: IPRATROPIUM BROMIDE 0.5 MG/2.5 ML NEBU. NEB SCH ×4 (07:37→20:00)
[2021-02-16 08:01] LABS: BASO % 0 % (0-3); EOS % 0 % (0-3); HEMATOCRIT 29.5 % (36.0-47.0); HEMOGLOBIN 9.8 g/dL (12.0-15.5); LYMPH # 1.2 x10^3/uL (1.0-4.8); LYMPH % 8 % (24-48); MEAN CORPUSCULAR HEMOGLOBIN 30 pg (25-35); MEAN CORPUSCULAR HGB CONC 33 g/dL (31-37); MEAN CORPUSCULAR VOLUME 90 fL (79-100); MONO # 1.6 x10^3/uL (0.0-1.1); MONO % 12 % (0-9); NEUT # 11.4 x10^3/uL (1.8-7.7); NEUT % 80 % (31-73); PLATELET COUNT 224 x10^3/uL (140-400); RED BLOOD COUNT 3.29 x10^6/uL (3.50-5.40); RED CELL DISTRIBUTION WIDTH 15.3 % (11.5-14.5); WHITE BLOOD COUNT 14.3 x10^3/uL (4.0-11.0)
[2021-02-16 08:11] LABS: ALBUMIN 1.8 g/dL (3.4-5.0); ALBUMIN/GLOBULIN RATIO 0.4 (1.0-1.7); CALCIUM 6.7 mg/dL (8.5-10.1); CREATININE 0.8 mg/dL (0.6-1.0); GFR 69.6; MAGNESIUM 2.1 mg/dL (1.8-2.4); PHOSPHORUS 2.1 mg/dL (2.6-4.7); POTASSIUM 3.5 mmol/L (3.5-5.1); TOTAL BILIRUBIN 0.6 mg/dL (0.2-1.0); TOTAL PROTEIN 5.9 g/dL (6.4-8.2)
[2021-02-16] MEDS: IV NORMAL SALINE 1000ML BAG 1,000 ML IV SCH (09:00)
[2021-02-16] MEDS: methylPREDNISolone SOD SUCC PF 40 MG/ML VIAL. IV SCH (09:30)
--- NOTE | 2021-02-16 11:04 | PDOC ---
LELA MARIE BIOFUELS PRODUCTION MANAGER 02/16/21 1104: SURGICAL PROGRESS NOTE DATE: 02/16/21 TIME: 11:02 Subjective resting no nausea mild SOA Vital Signs Vital Signs Date Time Temp Pulse Resp B/P (MAP) Pulse Ox O2 Delivery O2 Flow Rate FiO2 02/16/21 11:00 93 Nasal Cannula 2.0 02/16/21 06:00 78 23 126/40 (68) 02/16/21 04:00 98.0 98.0 I&O Intake and Output 02/16/21 07:00 Intake Total 0 ml Output Total 760 ml Balance -760 ml Intake Oral 0 ml Output Urine Total 600 ml Drainage Total 160 ml PATIENT HAS A GARCIA: Yes General: Cooperative, No acute distress Abdomen: Soft, Other (dressing intact, drains serosang) Labs Laboratory Tests Test 02/15/21 11:10 02/15/21 20:09 02/15/21 22:13 02/16/21 07:40 White Blood Count 13.3 x10^3/uL (4.0-11.0) 14.3 x10^3/uL (4.0-11.0) Red Blood Count 3.67 x10^6/uL (3.50-5.40) 3.29 x10^6/uL (3.50-5.40) Hemoglobin 10.7 g/dL (12.0-15.5) 9.8 g/dL (12.0-15.5) Hematocrit 33.1 % (36.0-47.0) 29.5 % (36.0-47.0) Mean Corpuscular Volume 90 fL (79-100) 90 fL (79-100) Mean Corpuscular Hemoglobin 29 pg (25-35) 30 pg (25-35) Mean Corpuscular Hemoglobin Concent 32 g/dL (31-37) 33 g/dL (31-37) Red Cell Distribution Width 15.1 % (11.5-14.5) 15.3 % (11.5-14.5) Platelet Count 212 x10^3/uL (140-400) 224 x10^3/uL (140-400) Neutrophils (%) (Auto) 78 % (31-73) 80 % (31-73) Lymphocytes (%) (Auto) 10 % (24-48) 8 % (24-48) Monocytes (%) (Auto) 12 % (0-9) 12 % (0-9) Eosinophils (%) (Auto) 0 % (0-3) 0 % (0-3) Basophils (%) (Auto) 0 % (0-3) 0 % (0-3) Neutrophils # (Auto) 10.3 x10^3/uL (1.8-7.7) 11.4 x10^3/uL (1.8-7.7) Lymphocytes # (Auto) 1.3 x10^3/uL (1.0-4.8) 1.2 x10^3/uL (1.0-4.8) Monocytes # (Auto) 1.6 x10^3/uL (0.0-1.1) 1.6 x10^3/uL (0.0-1.1) Eosinophils # (Auto) 0.0 x10^3/uL (0.0-0.7) 0.0 x10^3/uL (0.0-0.7) Basophils # (Auto) 0.0 x10^3/uL (0.0-0.2) 0.0 x10^3/uL (0.0-0.2) O2 Saturation 93 % (92-99) Arterial Blood pH 7.39 (7.35-7.45) Arterial Blood pCO2 at Patient Temp 26 mmHg (35-46) Arterial Blood pO2 at Patient Temp 68 mmHg (65-108) Arterial Blood HCO3 15 mmol/L (21-28) Arterial Blood Base Excess -8 mmol/L (-3-3) FiO2 32 Glucose (Fingerstick) 99 mg/dL (70-99) Sodium Level 132 mmol/L (136-145) Potassium Level 3.5 mmol/L (3.5-5.1) Chloride Level 100 mmol/L (98-107) Carbon Dioxide Level 18 mmol/L (21-32) Anion Gap 14 (6-14) Blood Urea Nitrogen 31 mg/dL (7-20) Creatinine 0.8 mg/dL (0.6-1.0) Estimated GFR (Cockcroft-Gault) 69.6 BUN/Creatinine Ratio 39 (6-20) Glucose Level 85 mg/dL (70-99) Lactic Acid Level 1.2 mmol/L (0.4-2.0) Calcium Level 6.7 mg/dL (8.5-10.1) Phosphorus Level 2.1 mg/dL (2.6-4.7) Magnesium Level 2.1 mg/dL (1.8-2.4) Total Bilirubin 0.6 mg/dL (0.2-1.0) Aspartate Amino Transf (AST/SGOT) 35 U/L (15-37) Alanine Aminotransferase (ALT/SGPT) 19 U/L (14-59) Alkaline Phosphatase 57 U/L (46-116) FM-Gog-C-Type Natriuretic Peptide 6407 pg/mL (0-449) Total Protein 5.9 g/dL (6.4-8.2) Albumin 1.8 g/dL (3.4-5.0) Albumin/Globulin Ratio 0.4 (1.0-1.7) Laboratory Tests Test 02/15/21 11:10 02/15/21 20:09 02/15/21 22:13 02/16/21 07:40 White Blood Count 13.3 x10^3/uL (4.0-11.0) 14.3 x10^3/uL (4.0-11.0) Red Blood Count 3.67 x10^6/uL (3.50-5.40) 3.29 x10^6/uL (3.50-5.40) Hemoglobin 10.7 g/dL (12.0-15.5) 9.8 g/dL (12.0-15.5) Hematocrit 33.1 % (36.0-47.0) 29.5 % (36.0-47.0) Mean Corpuscular Volume 90 fL (79-100) 90 fL (79-100) Mean Corpuscular Hemoglobin 29 pg (25-35) 30 pg (25-35) Mean Corpuscular Hemoglobin Concent 32 g/dL (31-37) 33 g/dL (31-37) Red Cell Distribution Width 15.1 % (11.5-14.5) 15.3 % (11.5-14.5) Platelet Count 212 x10^3/uL (140-400) 224 x10^3/uL (140-400) Neutrophils (%) (Auto) 78 % (31-73) 80 % (31-73) Lymphocytes (%) (Auto) 10 % (24-48) 8 % (24-48) Monocytes (%) (Auto) 12 % (0-9) 12 % (0-9) Eosinophils (%) (Auto) 0 % (0-3) 0 % (0-3) Basophils (%) (Auto) 0 % (0-3) 0 % (0-3) Neutrophils # (Auto) 10.3 x10^3/uL (1.8-7.7) 11.4 x10^3/uL (1.8-7.7) Lymphocytes # (Auto) 1.3 x10^3/uL (1.0-4.8) 1.2 x10^3/uL (1.0-4.8) Monocytes # (Auto) 1.6 x10^3/uL (0.0-1.1) 1.6 x10^3/uL (0.0-1.1) Eosinophils # (Auto) 0.0 x10^3/uL (0.0-0.7) 0.0 x10^3/uL (0.0-0.7) Basophils # (Auto) 0.0 x10^3/uL (0.0-0.2) 0.0 x10^3/uL (0.0-0.2) O2 Saturation 93 % (92-99) Arterial Blood pH 7.39 (7.35-7.45) Arterial Blood pCO2 at Patient Temp 26 mmHg (35-46) Arterial Blood pO2 at Patient Temp 68 mmHg (65-108) Arterial Blood HCO3 15 mmol/L (21-28) Arterial Blood Base Excess -8 mmol/L (-3-3) FiO2 32 Glucose (Fingerstick) 99 mg/dL (70-99) Sodium Level 132 mmol/L (136-145) Potassium Level 3.5 mmol/L (3.5-5.1) Chloride Level 100 mmol/L (98-107) Carbon Dioxide Level 18 mmol/L (21-32) Anion Gap 14 (6-14) Blood Urea Nitrogen 31 mg/dL (7-20) Creatinine 0.8 mg/dL (0.6-1.0) Estimated GFR (Cockcroft-Gault) 69.6 BUN/Creatinine Ratio 39 (6-20) Glucose Level 85 mg/dL (70-99) Lactic Acid Level 1.2 mmol/L (0.4-2.0) Calcium Level 6.7 mg/dL (8.5-10.1) Phosphorus Level 2.1 mg/dL (2.6-4.7) Magnesium Level 2.1 mg/dL (1.8-2.4) Total Bilirubin 0.6 mg/dL (0.2-1.0) Aspartate Amino Transf (AST/SGOT) 35 U/L (15-37) Alanine Aminotransferase (ALT/SGPT) 19 U/L (14-59) Alkaline Phosphatase 57 U/L (46-116) QB-Pnq-C-Type Natriuretic Peptide 6407 pg/mL (0-449) Total Protein 5.9 g/dL (6.4-8.2) Albumin 1.8 g/dL (3.4-5.0) Albumin/Globulin Ratio 0.4 (1.0-1.7) Assessment/Plan supportive care HR and BP improved Justicifation of Admission Dx: Justifications for Admission: Justification of Admission Dx: Yes Comments: ventral hernia RAO PATTON MD 02/17/21 1042: SURGICAL PROGRESS NOTE Assessment/Plan Supportive care, appreciate consultants help LELA MARIE APRN Feb 16, 2021 11:04 RAO PATTON MD Feb 17, 2021 10:42
--- NOTE | 2021-02-16 11:27 | PDOC2 ---
IM Consult Reason for consult Sepsis Referring physician DR Caro Date of Admission DATE: 02/16/21 TIME: 11:18 Chief Complaint Chief Complaint This is 75 year old female has been admitted with large ventral hernia for surgery she underwent on February 12, 2021 Post operatively patient had sepsis went into A. fib with RVR requiring diltiazem drip Had low-grade fevers Started on empiric IV Vanco cefepime and Flagyl Infectious disease consultation has been requested for antibiotic management Currently not requiring any pressors Complains of some incisional site pain She has undergone multiple abdominal surgeries in the past Past Medical History PMH rheumatoid arthritis, depression, hypertension, breast cancer Past Surgical History PSH Large ventral hernia surgery on February 20, 2021 sigmoid colectomy with colostomy, colostomy takedown, hernia repair, lumpectomy, hysterectomy Review of Symptoms Review of Symptoms Dry mouth Low grade fevers Incisional site pain Thirsty Denies headache nausea, vomiting, worsening shortness of breath, diarrhea, symptoms rash Medications Current Medications Acetaminophen (Tylenol) 1,000 mg 1X ONCE PO Last administered on 02/15/21at 20:24; Start 02/15/21 at 20:15; Stop 02/15/21 at 20:16; Status DC Cefepime HCl (Maxipime) 1 gm Q24H IVP Last administered on 02/15/21at 23:10; Start 02/15/21 at 22:00 Diltiazem HCl 125 mg/Sodium Chloride 125 ml @ 5 mls/hr CONT PRN IV SEE I/O RECORD Last administered on 02/16/21at 01:00; Start 02/15/21 at 21:30 Ipratropium [place] (Atrovent) 0.5 mg 1X ONCE NEB ; Start 02/15/21 at 22:00; Stop 02/15/21 at 22:01; Status DC Ipratropium [place] (Atrovent) 0.5 mg RTQID NEB Last administered on 02/16/21at 11:00; Start 02/16/21 at 08:00 Methylprednisolone Sodium Succinate (SOLU-Medrol 40MG VIAL) 30 mg DAILY IV Last administered on 02/16/21at 09:30; Start 02/16/21 at 09:00 Metoprolol Tartrate (Lopressor Vial) 5 mg PRN Q5MIN PRN IVP TACHYCARDIA Last administered on 02/15/21at 20:46; Start 02/15/21 at 20:15 Metronidazole 100 ml @ 100 mls/hr Q12HR IV Last administered on 02/16/21at 09:00; Start 02/15/21 at 22:00 Sodium Chloride 500 ml @ 500 mls/hr 1X ONCE IV ; Start 02/15/21 at 21:30; Stop 02/15/21 at 22:29; Status DC Vancomycin HCl (Vanco Per Pharmacy) 1 each PRN DAILY PRN MC SEE COMMENTS Last administered on 02/16/21at 03:40; Start 02/15/21 at 21:30; Stop 02/16/21 at 11:17; Status DC Vancomycin HCl (Vancomycin Trough Level) 1 each 1X ONCE MC ; Start 02/17/21 at 22:30; Stop 02/16/21 at 11:17; Status DC Vancomycin HCl 1.75 gm/Sodium Chloride 500 ml @ 250 mls/hr 1X ONCE IV Last administered on 02/15/21at 23:00; Start 02/15/21 at 22:00; Stop 02/15/21 at 23:59; Status DC Vancomycin HCl 1 gm/Sodium Chloride 250 ml @ 250 mls/hr Q24H IV ; Start 02/16/21 at 23:00; Stop 02/16/21 at 11:16; Status DC Allergy Allergies Coded Allergies Type Severity Reaction Last Updated Verified adhesive tape Allergy Intermediate 02/13/21 Yes Physical Exam Physical Exam GENERAL: Alert, oriented x 3 female, lying in bed comfortably, in no acute distress. Appears tired HEENT: Normocephalic, atraumatic. Anicteric. Dry mouth NECK: Supple. No JVD. LUNGS: Rales present no wheezing HEART: Irregularly irregular no murmurs appreciated ABDOMEN: Obese ,mildly distended, binder in place, not taken down, intact dry Hypoactive bowel sounds EXTREMITIES mild edema present, no cyanosis MUSCULOSKELETAL: No joint swelling. No decrease in range of motion. CENTRAL NERVOUS SYSTEM: Alert, oriented x 3, grossly nonfocal. Generalized weakness PSYCHIATRIC: Cooperative, calm. PIV looks clean Labs Laboratory Tests Test 02/15/21 11:10 02/15/21 20:09 02/15/21 22:13 02/16/21 07:40 White Blood Count 13.3 x10^3/uL (4.0-11.0) 14.3 x10^3/uL (4.0-11.0) Red Blood Count 3.67 x10^6/uL (3.50-5.40) 3.29 x10^6/uL (3.50-5.40) Hemoglobin 10.7 g/dL (12.0-15.5) 9.8 g/dL (12.0-15.5) Hematocrit 33.1 % (36.0-47.0) 29.5 % (36.0-47.0) Mean Corpuscular Volume 90 fL (79-100) 90 fL (79-100) Mean Corpuscular Hemoglobin 29 pg (25-35) 30 pg (25-35) Mean Corpuscular Hemoglobin Concent 32 g/dL (31-37) 33 g/dL (31-37) Red Cell Distribution Width 15.1 % (11.5-14.5) 15.3 % (11.5-14.5) Platelet Count 212 x10^3/uL (140-400) 224 x10^3/uL (140-400) Neutrophils (%) (Auto) 78 % (31-73) 80 % (31-73) Lymphocytes (%) (Auto) 10 % (24-48) 8 % (24-48) Monocytes (%) (Auto) 12 % (0-9) 12 % (0-9) Eosinophils (%) (Auto) 0 % (0-3) 0 % (0-3) Basophils (%) (Auto) 0 % (0-3) 0 % (0-3) Neutrophils # (Auto) 10.3 x10^3/uL (1.8-7.7) 11.4 x10^3/uL (1.8-7.7) Lymphocytes # (Auto) 1.3 x10^3/uL (1.0-4.8) 1.2 x10^3/uL (1.0-4.8) Monocytes # (Auto) 1.6 x10^3/uL (0.0-1.1) 1.6 x10^3/uL (0.0-1.1) Eosinophils # (Auto) 0.0 x10^3/uL (0.0-0.7) 0.0 x10^3/uL (0.0-0.7) Basophils # (Auto) 0.0 x10^3/uL (0.0-0.2) 0.0 x10^3/uL (0.0-0.2) O2 Saturation 93 % (92-99) Arterial Blood pH 7.39 (7.35-7.45) Arterial Blood pCO2 at Patient Temp 26 mmHg (35-46) Arterial Blood pO2 at Patient Temp 68 mmHg (65-108) Arterial Blood HCO3 15 mmol/L (21-28) Arterial Blood Base Excess -8 mmol/L (-3-3) FiO2 32 Glucose (Fingerstick) 99 mg/dL (70-99) Sodium Level 132 mmol/L (136-145) Potassium Level 3.5 mmol/L (3.5-5.1) Chloride Level 100 mmol/L (98-107) Carbon Dioxide Level 18 mmol/L (21-32) Anion Gap 14 (6-14) Blood Urea Nitrogen 31 mg/dL (7-20) Creatinine 0.8 mg/dL (0.6-1.0) Estimated GFR (Cockcroft-Gault) 69.6 BUN/Creatinine Ratio 39 (6-20) Glucose Level 85 mg/dL (70-99) Lactic Acid Level 1.2 mmol/L (0.4-2.0) Calcium Level 6.7 mg/dL (8.5-10.1) Phosphorus Level 2.1 mg/dL (2.6-4.7) Magnesium Level 2.1 mg/dL (1.8-2.4) Total Bilirubin 0.6 mg/dL (0.2-1.0) Aspartate Amino Transf (AST/SGOT) 35 U/L (15-37) Alanine Aminotransferase (ALT/SGPT) 19 U/L (14-59) Alkaline Phosphatase 57 U/L (46-116) QX-Fgs-S-Type Natriuretic Peptide 6407 pg/mL (0-449) Total Protein 5.9 g/dL (6.4-8.2) Albumin 1.8 g/dL (3.4-5.0) Albumin/Globulin Ratio 0.4 (1.0-1.7) Laboratory Tests Test 02/15/21 20:09 02/15/21 22:13 02/16/21 07:40 O2 Saturation 93 % (92-99) Arterial Blood pH 7.39 (7.35-7.45) Arterial Blood pCO2 at Patient Temp 26 mmHg (35-46) Arterial Blood pO2 at Patient Temp 68 mmHg (65-108) Arterial Blood HCO3 15 mmol/L (21-28) Arterial Blood Base Excess -8 mmol/L (-3-3) FiO2 32 Glucose (Fingerstick) 99 mg/dL (70-99) White Blood Count 14.3 x10^3/uL (4.0-11.0) Red Blood Count 3.29 x10^6/uL (3.50-5.40) Hemoglobin 9.8 g/dL (12.0-15.5) Hematocrit 29.5 % (36.0-47.0) Mean Corpuscular Volume 90 fL (79-100) Mean Corpuscular Hemoglobin 30 pg (25-35) Mean Corpuscular Hemoglobin Concent 33 g/dL (31-37) Red Cell Distribution Width 15.3 % (11.5-14.5) Platelet Count 224 x10^3/uL (140-400) Neutrophils (%) (Auto) 80 % (31-73) Lymphocytes (%) (Auto) 8 % (24-48) Monocytes (%) (Auto) 12 % (0-9) Eosinophils (%) (Auto) 0 % (0-3) Basophils (%) (Auto) 0 % (0-3) Neutrophils # (Auto) 11.4 x10^3/uL (1.8-7.7) Lymphocytes # (Auto) 1.2 x10^3/uL (1.0-4.8) Monocytes # (Auto) 1.6 x10^3/uL (0.0-1.1) Eosinophils # (Auto) 0.0 x10^3/uL (0.0-0.7) Basophils # (Auto) 0.0 x10^3/uL (0.0-0.2) Sodium Level 132 mmol/L (136-145) Potassium Level 3.5 mmol/L (3.5-5.1) Chloride Level 100 mmol/L (98-107) Carbon Dioxide Level 18 mmol/L (21-32) Anion Gap 14 (6-14) Blood Urea Nitrogen 31 mg/dL (7-20) Creatinine 0.8 mg/dL (0.6-1.0) Estimated GFR (Cockcroft-Gault) 69.6 BUN/Creatinine Ratio 39 (6-20) Glucose Level 85 mg/dL (70-99) Lactic Acid Level 1.2 mmol/L (0.4-2.0) Calcium Level 6.7 mg/dL (8.5-10.1) Phosphorus Level 2.1 mg/dL (2.6-4.7) Magnesium Level 2.1 mg/dL (1.8-2.4) Total Bilirubin 0.6 mg/dL (0.2-1.0) Aspartate Amino Transf (AST/SGOT) 35 U/L (15-37) Alanine Aminotransferase (ALT/SGPT) 19 U/L (14-59) Alkaline Phosphatase 57 U/L (46-116) CR-Wde-Q-Type Natriuretic Peptide 6407 pg/mL (0-449) Total Protein 5.9 g/dL (6.4-8.2) Albumin 1.8 g/dL (3.4-5.0) Albumin/Globulin Ratio 0.4 (1.0-1.7) Vitals Vital Signs Date Time Temp Pulse Resp B/P (MAP) Pulse Ox O2 Delivery O2 Flow Rate FiO2 02/16/21 11:00 93 Nasal Cannula 2.0 02/16/21 06:00 78 23 126/40 (68) 02/16/21 04:00 98.0 98.0 Assessment Assessment Status post large ventral hernia repair on February 12, 2021 Sepsis Leukocytosis Febrile illness Anemia A. fib with RVR CHF Renal insufficiency Rheumatoid arthritis Depression History of breast cancer Hypertension Plan Plan DC IV vancomycin due to renal insufficiency Start Zyvox Change cefepime to 2 g IV every 12hr, may need renal dosing Continue metronidazole Continue local wound care as directed Continue aspiration precaution PT and OT as tolerated Thank you Dr. Caro for consulting infectious disease perspiring this patient's care. If you have any questions do not hesitate to contact me. Discussed with nursing staff MELINDA MONTEMAYOR MD Feb 16, 2021 11:27
--- NOTE | 2021-02-16 12:09 | PDOC ---
PULMONARY PROGRESS NOTES DATE: 02/16/21 TIME: 12:09 Vitals Vital Signs Date Time Temp Pulse Resp B/P (MAP) Pulse Ox O2 Delivery O2 Flow Rate FiO2 02/16/21 11:00 93 Nasal Cannula 2.0 02/16/21 06:00 78 23 126/40 (68) 02/16/21 04:00 98.0 98.0 Labs Laboratory Tests Test 02/15/21 11:10 02/15/21 20:09 02/15/21 22:13 02/16/21 07:40 White Blood Count 13.3 x10^3/uL (4.0-11.0) 14.3 x10^3/uL (4.0-11.0) Red Blood Count 3.67 x10^6/uL (3.50-5.40) 3.29 x10^6/uL (3.50-5.40) Hemoglobin 10.7 g/dL (12.0-15.5) 9.8 g/dL (12.0-15.5) Hematocrit 33.1 % (36.0-47.0) 29.5 % (36.0-47.0) Mean Corpuscular Volume 90 fL (79-100) 90 fL (79-100) Mean Corpuscular Hemoglobin 29 pg (25-35) 30 pg (25-35) Mean Corpuscular Hemoglobin Concent 32 g/dL (31-37) 33 g/dL (31-37) Red Cell Distribution Width 15.1 % (11.5-14.5) 15.3 % (11.5-14.5) Platelet Count 212 x10^3/uL (140-400) 224 x10^3/uL (140-400) Neutrophils (%) (Auto) 78 % (31-73) 80 % (31-73) Lymphocytes (%) (Auto) 10 % (24-48) 8 % (24-48) Monocytes (%) (Auto) 12 % (0-9) 12 % (0-9) Eosinophils (%) (Auto) 0 % (0-3) 0 % (0-3) Basophils (%) (Auto) 0 % (0-3) 0 % (0-3) Neutrophils # (Auto) 10.3 x10^3/uL (1.8-7.7) 11.4 x10^3/uL (1.8-7.7) Lymphocytes # (Auto) 1.3 x10^3/uL (1.0-4.8) 1.2 x10^3/uL (1.0-4.8) Monocytes # (Auto) 1.6 x10^3/uL (0.0-1.1) 1.6 x10^3/uL (0.0-1.1) Eosinophils # (Auto) 0.0 x10^3/uL (0.0-0.7) 0.0 x10^3/uL (0.0-0.7) Basophils # (Auto) 0.0 x10^3/uL (0.0-0.2) 0.0 x10^3/uL (0.0-0.2) O2 Saturation 93 % (92-99) Arterial Blood pH 7.39 (7.35-7.45) Arterial Blood pCO2 at Patient Temp 26 mmHg (35-46) Arterial Blood pO2 at Patient Temp 68 mmHg (65-108) Arterial Blood HCO3 15 mmol/L (21-28) Arterial Blood Base Excess -8 mmol/L (-3-3) FiO2 32 Glucose (Fingerstick) 99 mg/dL (70-99) Sodium Level 132 mmol/L (136-145) Potassium Level 3.5 mmol/L (3.5-5.1) Chloride Level 100 mmol/L (98-107) Carbon Dioxide Level 18 mmol/L (21-32) Anion Gap 14 (6-14) Blood Urea Nitrogen 31 mg/dL (7-20) Creatinine 0.8 mg/dL (0.6-1.0) Estimated GFR (Cockcroft-Gault) 69.6 BUN/Creatinine Ratio 39 (6-20) Glucose Level 85 mg/dL (70-99) Lactic Acid Level 1.2 mmol/L (0.4-2.0) Calcium Level 6.7 mg/dL (8.5-10.1) Phosphorus Level 2.1 mg/dL (2.6-4.7) Magnesium Level 2.1 mg/dL (1.8-2.4) Total Bilirubin 0.6 mg/dL (0.2-1.0) Aspartate Amino Transf (AST/SGOT) 35 U/L (15-37) Alanine Aminotransferase (ALT/SGPT) 19 U/L (14-59) Alkaline Phosphatase 57 U/L (46-116) UC-Mje-V-Type Natriuretic Peptide 6407 pg/mL (0-449) Total Protein 5.9 g/dL (6.4-8.2) Albumin 1.8 g/dL (3.4-5.0) Albumin/Globulin Ratio 0.4 (1.0-1.7) Laboratory Tests Test 02/15/21 20:09 02/15/21 22:13 02/16/21 07:40 O2 Saturation 93 % (92-99) Arterial Blood pH 7.39 (7.35-7.45) Arterial Blood pCO2 at Patient Temp 26 mmHg (35-46) Arterial Blood pO2 at Patient Temp 68 mmHg (65-108) Arterial Blood HCO3 15 mmol/L (21-28) Arterial Blood Base Excess -8 mmol/L (-3-3) FiO2 32 Glucose (Fingerstick) 99 mg/dL (70-99) White Blood Count 14.3 x10^3/uL (4.0-11.0) Red Blood Count 3.29 x10^6/uL (3.50-5.40) Hemoglobin 9.8 g/dL (12.0-15.5) Hematocrit 29.5 % (36.0-47.0) Mean Corpuscular Volume 90 fL (79-100) Mean Corpuscular Hemoglobin 30 pg (25-35) Mean Corpuscular Hemoglobin Concent 33 g/dL (31-37) Red Cell Distribution Width 15.3 % (11.5-14.5) Platelet Count 224 x10^3/uL (140-400) Neutrophils (%) (Auto) 80 % (31-73) Lymphocytes (%) (Auto) 8 % (24-48) Monocytes (%) (Auto) 12 % (0-9) Eosinophils (%) (Auto) 0 % (0-3) Basophils (%) (Auto) 0 % (0-3) Neutrophils # (Auto) 11.4 x10^3/uL (1.8-7.7) Lymphocytes # (Auto) 1.2 x10^3/uL (1.0-4.8) Monocytes # (Auto) 1.6 x10^3/uL (0.0-1.1) Eosinophils # (Auto) 0.0 x10^3/uL (0.0-0.7) Basophils # (Auto) 0.0 x10^3/uL (0.0-0.2) Sodium Level 132 mmol/L (136-145) Potassium Level 3.5 mmol/L (3.5-5.1) Chloride Level 100 mmol/L (98-107) Carbon Dioxide Level 18 mmol/L (21-32) Anion Gap 14 (6-14) Blood Urea Nitrogen 31 mg/dL (7-20) Creatinine 0.8 mg/dL (0.6-1.0) Estimated GFR (Cockcroft-Gault) 69.6 BUN/Creatinine Ratio 39 (6-20) Glucose Level 85 mg/dL (70-99) Lactic Acid Level 1.2 mmol/L (0.4-2.0) Calcium Level 6.7 mg/dL (8.5-10.1) Phosphorus Level 2.1 mg/dL (2.6-4.7) Magnesium Level 2.1 mg/dL (1.8-2.4) Total Bilirubin 0.6 mg/dL (0.2-1.0) Aspartate Amino Transf (AST/SGOT) 35 U/L (15-37) Alanine Aminotransferase (ALT/SGPT) 19 U/L (14-59) Alkaline Phosphatase 57 U/L (46-116) [id number]-Ymq-[id number]-Type Natriuretic Peptide 6407 pg/mL (0-449) Total Protein 5.9 g/dL (6.4-8.2) Albumin 1.8 g/dL (3.4-5.0) Albumin/Globulin Ratio 0.4 (1.0-1.7) Medications Active Scripts Medications Dose Route/Sig Max Daily Dose Days Date Category Vitamin B12 (Cyanocobalamin (Vitamin B-12)) 2,500 Mcg Tablet 500 Mg PO BID 02/15/21 Reported Nexium Capsule (Esomeprazole Magnesium) 40 Mg Capsule. 1 Cap PO BID 02/15/21 Reported Calcium 600 + Vit D 800 Tab (Calcium Carbonate/Vitamin D3) 1 Each Tablet 1 Tab PO BID 30 02/15/21 Reported Benefiber (Wheat Dextrin) 1 Each Powd.pack 1 Each PO DAILY 02/15/21 Reported Lisinopril 10 Mg Tablet 1 Tab PO DAILY 02/15/21 Reported Leflunomide 10 Mg Tablet 10 Mg PO DAILY 02/15/21 Reported Prednisone 2.5 Mg Tablet 5 Mg PO DAILY 02/15/21 Reported Metoprolol Tartrate 25 Mg Tablet 1 Tab PO DAILY 02/15/21 Reported Hydrocodone-Apap 5-325 (Hydrocodone Bit/Acetaminophen) 1 Tab Tablet 1 Tab PO PRN BID PRN 02/15/21 Reported Gabapentin 100 Mg Capsule 100 Mg PO PRN BID PRN 02/15/21 Reported Folic Acid 0.8 Mg Tablet 3 Mg PO DAILY 02/15/21 Reported Cymbalta (Duloxetine Hcl) 30 Mg Capsule.dr 1 Cap PO DAILY 02/15/21 Reported Prolia (Denosumab) 60 Mg/1 Ml Disp.syrin 1 Syr SQ [id number] 1 02/15/21 Reported Celexa (Citalopram Hydrobromide) 10 Mg Tablet 1 Tab PO DAILY 02/15/21 Reported Alprazolam 0.25 Mg Tablet 0.25 Mg PO PRN DAILY PRN 02/15/21 Reported Impression . Full note dictated Acute hypoxemic respiratory failure multifactorial Possible pneumonia Possible CHF See orders ASHLY PRADHAN MD Feb 16, 2021 12:09
[2021-02-16] MEDS: CEFEPIME HCL IV Push 2 GM VIAL. IVP SCH ×2 (12:21→21:23)
--- NOTE | 2021-02-16 12:47 | CONS ---
DATE OF CONSULTATION: 02/16/2021 ATTENDING PHYSICIAN: Edward Jung MD REASON FOR CONSULTATION: The patient is seen in Pulmonary consultation at the request of Dr. Jung for hypoxemia and abnormal x-ray. HISTORY OF PRESENT ILLNESS: The patient is a 75-year-old with a history of interstitial lung disease, normally does not wear oxygen at home. She has had no cardiac issues in the past. She has smoked, quit in 1991. She normally follows Dr. Hernandez at [facility]. She has had a chronic cough. He attributed the cough to interstitial lung disease, presumed this is related to rheumatoid arthritis. The patient was admitted for a repair of a large ventral hernia, underwent surgery on the with a ventral hernia repair requiring a mesh. She also had abdominal component separation. The patient was having some difficulty with shortness of breath yesterday. Chest x-ray was obtained, which revealed cardiomegaly, left-sided effusion, possibly CHF. There is no prior history of CHF. The patient has received some Solu-Medrol. ID was consulted. She is currently on linezolid, cefepime and vancomycin. Cardiology has been consulted. She was also given diltiazem IV. She is currently awake, alert, following commands. She is in no respiratory distress. She is on 2 liters of oxygen supplementation since she had a fever yesterday of 100.2. Her labs were reviewed. White count was elevated. Arterial blood gas last night revealed a pH of 7.39, PaCO2 of 26, pO2 of 68. Her electrolytes were noted. Cardiology once again has been consulted. PAST MEDICAL HISTORY: Remarkable for rheumatoid arthritis; interstitial lung disease, possibly related to rheumatoid arthritis; depression; hypertension; history of breast cancer, status post radiation. She did smoke in the past, quit in 1991. I suspect she may have COPD, unknown FEV1. PAST SURGICAL HISTORY: Large ventral hernia repair during this admission. She also had a sigmoid colectomy with colostomy. She has had previous colostomy takedown, hernia repair, lumpectomy and hysterectomy. REVIEW OF SYSTEMS: As indicated above, otherwise a 10-point system was reviewed and negative. ALLERGIES: ADHESIVE TAPE. MEDICATIONS: Current medication list was reviewed. Home medication list was reviewed. She was utilizing albuterol at home. FAMILY HISTORY: Noncontributory. SOCIAL HISTORY: She quit tobacco in 1991. PHYSICAL EXAMINATION: VITAL SIGNS: Stable. O2 saturation was greater than 92%. T-max yesterday 100.2. HEENT: Eyes: The sclerae were nonicteric. NECK: Jugular venous distention was not elevated. No lymphadenopathy. CHEST: Anteriorly were clear. CARDIOVASCULAR: Regular rate and rhythm with S1 and S2, no S3. ABDOMEN: Soft. EXTREMITIES: No clubbing, cyanosis. Dressing in place. NEUROLOGIC: The patient was awake, alert, following commands. A detailed neuro exam was not performed. LABORATORY DATA: Labs were reviewed as indicated above. DIAGNOSTIC DATA: Chest x-ray reviewed as indicated above. IMPRESSION: 1. Acute hypoxemic respiratory failure, multifactorial. 2. Abnormal x-ray, compatible with effusion, possibly congestive heart failure. 3. Possible pneumonia. 4. Leukocytosis. 5. Fever. 6. Status post large ventral hernia repair on 02/13. 7. Rheumatoid arthritis with previously diagnosed as interstitial lung disease. 8. Hypertension. 9. Breast cancer, status post radiation. 10. Tobacco dependence, in remission. 11. Chronic obstructive pulmonary disease, unknown FEV1. PLAN: 1. Continue current support with oxygen supplementation. 2. Empiric antibiotics. 3. Chest x-ray reviewed, possible CHF. Cardiology has been consulted. 4. Suspect the patient will undergo echocardiogram. 5. Diurese if the patient becomes more short of air. The above was discussed with the at the bedside. I do appreciate the privilege in sharing in the patient's care. CHRIS DR: Jacek TID: [id number]
[2021-02-16] MEDS: IV 1/2 NORMAL SALINE 1,000 ML IV SCH ×2 (13:28→15:40)
--- NOTE | 2021-02-16 13:56 | PDOC ---
[employer] PROGRESS NOTE Date of Service DOS: DATE: 02/16/21 TIME: 13:41 Chief Complaint Chief Complaint Abdominal pain History of Present Illness History of Present Illness This patient was sent here for a ventral hernia repair which he underwent on February 13. Patient under the care of general surgery team. Patient had done really well after surgery initially she was actually planning to start trialing liquids yesterday however she had some worsening in her overall status concerning for sepsis. She was hypotensive and tachycardic up to the 160s. Her work-up showed A. fib with RVR requiring a Cardizem drip. Was evaluated by Dr. Caro who was concerned about her status recommending ICU transfer. Infectious Disease and pulmonary were consulted. Patient started on broad-spectrum antibiotics. Pulmonary following. 02/16 Patient evaluated in the ICU today. Her condition has significantly improved since last night. She is awake alert and oriented able to answer questions says pain is under control. Blood pressure holding steady. Remains on Cardizem drip. Continue antibiotics today. Suspect she can transfer out of ICU if beds are needed. Requesting to drink if she can, will defer this decision to surgery. Vitals/I&O Vitals/I&O: Vital Signs Date Time Temp Pulse Resp B/P (MAP) Pulse Ox O2 Delivery O2 Flow Rate FiO2 02/16/21 12:00 97.4 84 21 113/41 (65) 93 Nasal Cannula 3.0 97.4 I & O 02/15/21 02/15/21 02/16/21 15:00 23:00 07:00 Intake Total 0 ml 0 ml 0 ml Output Total 360 ml 60 ml 340 ml Balance -360 ml -60 ml -340 ml Physical Exam General: Alert, Oriented X3, Cooperative, No acute distress Heart: Other Lungs: Clear (Tachycardic) Abdomen: Soft, Other (dressing intact, drains serosang) Extremities: No clubbing, No cyanosis Skin: No rashes, No breakdown Labs Labs: Laboratory Tests Test 02/15/21 20:09 02/15/21 22:13 02/16/21 07:40 O2 Saturation 93 % (92-99) Arterial Blood pH 7.39 (7.35-7.45) Arterial Blood pCO2 at Patient Temp 26 mmHg (35-46) Arterial Blood pO2 at Patient Temp 68 mmHg (65-108) Arterial Blood HCO3 15 mmol/L (21-28) Arterial Blood Base Excess -8 mmol/L (-3-3) FiO2 32 Glucose (Fingerstick) 99 mg/dL (70-99) White Blood Count 14.3 x10^3/uL (4.0-11.0) Red Blood Count 3.29 x10^6/uL (3.50-5.40) Hemoglobin 9.8 g/dL (12.0-15.5) Hematocrit 29.5 % (36.0-47.0) Mean Corpuscular Volume 90 fL (79-100) Mean Corpuscular Hemoglobin 30 pg (25-35) Mean Corpuscular Hemoglobin Concent 33 g/dL (31-37) Red Cell Distribution Width 15.3 % (11.5-14.5) Platelet Count 224 x10^3/uL (140-400) Neutrophils (%) (Auto) 80 % (31-73) Lymphocytes (%) (Auto) 8 % (24-48) Monocytes (%) (Auto) 12 % (0-9) Eosinophils (%) (Auto) 0 % (0-3) Basophils (%) (Auto) 0 % (0-3) Neutrophils # (Auto) 11.4 x10^3/uL (1.8-7.7) Lymphocytes # (Auto) 1.2 x10^3/uL (1.0-4.8) Monocytes # (Auto) 1.6 x10^3/uL (0.0-1.1) Eosinophils # (Auto) 0.0 x10^3/uL (0.0-0.7) Basophils # (Auto) 0.0 x10^3/uL (0.0-0.2) Sodium Level 132 mmol/L (136-145) Potassium Level 3.5 mmol/L (3.5-5.1) Chloride Level 100 mmol/L (98-107) Carbon Dioxide Level 18 mmol/L (21-32) Anion Gap 14 (6-14) Blood Urea Nitrogen 31 mg/dL (7-20) Creatinine 0.8 mg/dL (0.6-1.0) Estimated GFR (Cockcroft-Gault) 69.6 BUN/Creatinine Ratio 39 (6-20) Glucose Level 85 mg/dL (70-99) Lactic Acid Level 1.2 mmol/L (0.4-2.0) Calcium Level 6.7 mg/dL (8.5-10.1) Phosphorus Level 2.1 mg/dL (2.6-4.7) Magnesium Level 2.1 mg/dL (1.8-2.4) Total Bilirubin 0.6 mg/dL (0.2-1.0) Aspartate Amino Transf (AST/SGOT) 35 U/L (15-37) Alanine Aminotransferase (ALT/SGPT) 19 U/L (14-59) Alkaline Phosphatase 57 U/L (46-116) WD-Rqb-P-Type Natriuretic Peptide 6407 pg/mL (0-449) Total Protein 5.9 g/dL (6.4-8.2) Albumin 1.8 g/dL (3.4-5.0) Albumin/Globulin Ratio 0.4 (1.0-1.7) Assessment and Plan Assessmemt and Plan Sepsis status post large ventral hernia repair on 02/13, acute hypoxic respiratory failure, interstitial lung disease, possible CHF -Patient notably improved from overnight -Continue antibiotics per infectious disease -Pulmonary following -General surgery primary team -Chest x-ray showing some fluid overload, cardiology already consulted for Afib RVR overnight, may need gentle dose of Lasix -Can transfer out of ICU to CVC Comment Review of Relevant I have reviewed the following items keely (where applicable) has been applied. Medications: Current Medications Medications (Trade) Dose Ordered Sig/Isael Route PRN Reason Start Time Stop Time Status Last Admin Dose Admin Metoprolol Tartrate (Lopressor Vial) 5 mg PRN Q5MIN PRN IVP TACHYCARDIA 02/15/21 20:15 02/15/21 20:46 Acetaminophen (Tylenol) 1,000 mg 1X ONCE PO 02/15/21 20:15 02/15/21 20:16 DC 02/15/21 20:24 Ipratropium [place] (Atrovent) 0.5 mg RTQID NEB 02/16/21 08:00 02/16/21 11:00 Vancomycin HCl (Vanco Per Pharmacy) 1 each PRN DAILY PRN MC SEE COMMENTS 02/15/21 21:30 02/16/21 11:17 DC 02/16/21 03:40 Cefepime HCl (Maxipime) 1 gm Q24H IVP 02/15/21 22:00 02/16/21 11:18 DC 02/15/21 23:10 Metronidazole 100 ml @ 100 mls/hr Q12HR IV 02/15/21 22:00 02/16/21 09:00 Diltiazem HCl 125 mg/Sodium Chloride 125 ml @ 5 mls/hr CONT PRN IV SEE I/O RECORD 02/15/21 21:30 02/16/21 01:00 Vancomycin HCl 1.75 gm/Sodium Chloride 500 ml @ 250 mls/hr 1X ONCE IV 02/15/21 22:00 02/15/21 23:59 DC 02/15/21 23:00 Methylprednisolone Sodium Succinate (SOLU-Medrol 40MG VIAL) 30 mg DAILY IV 02/16/21 09:00 02/16/21 09:30 Cefepime HCl (Maxipime) 2 gm Q12HR IVP 02/16/21 12:00 02/16/21 12:21 Linezolid/Dextrose 300 ml @ 300 mls/hr Q12HR IV 02/16/21 12:00 02/16/21 12:22 Justifications for Admission Other Justification BENY HUGGINS MD Feb 16, 2021 13:56
[2021-02-16] MEDS ORDERED: FUROSEMIDE 20 MG/2 ML VIAL. IVP ONE (14:15)
--- NOTE | 2021-02-16 14:18 | PDOC2 ---
CONSULT Date of Consult Date of Consult DATE: 02/16/21 TIME: 14:18 Social History Quit Current Medications Current Medications Current Medications Fentanyl Citrate (Fentanyl 2ml Vial) 25 mcg PRN Q5MIN PRN IVP MILD PAIN 1-3 Last administered on 02/13/21at 18:23; Start 02/13/21 at 06:00; Stop 02/13/21 at 21:00; Status DC Fentanyl Citrate (Fentanyl 2ml Vial) 50 mcg PRN Q5MIN PRN IVP MODERATE PAIN 4-6 Last administered on 02/13/21at 17:53; Start 02/13/21 at 06:00; Stop 02/13/21 at 21:00; Status DC Morphine Sulfate (Morphine Sulfate) 1 mg PRN Q10MIN PRN IVP SEVERE PAIN 7-10; Start 02/13/21 at 06:00; Stop 02/13/21 at 21:00; Status DC Ringer's Solution 1,000 ml @ 30 mls/hr Q24H IV ; Start 02/13/21 at 06:00; Stop 02/13/21 at 18:00; Status DC Hydromorphone HCl (Dilaudid) 0.5 mg PRN Q10MIN PRN IVP SEVERE PAIN 7-10, 2nd CHOICE Last administered on 02/13/21at 18:18; Start 02/13/21 at 06:00; Stop 02/13/21 at 21:00; Status DC Prochlorperazine Edisylate (Compazine) 5 mg PACU PRN PRN IVP NAUSEA, MRX1; Start 02/13/21 at 06:00; Stop 02/13/21 at 21:00; Status DC Propofol (Diprivan) 200 mg STK-MED ONCE IV ; Start 02/13/21 at 09:36; Stop 02/13/21 at 09:36; Status DC Lidocaine HCl (Lidocaine Pf 2% Vial) 5 ml STK-MED ONCE .ROUTE ; Start 02/13/21 at 09:36; Stop 02/13/21 at 09:36; Status DC Dexamethasone Sodium Phosphate (Decadron) 4 mg STK-MED ONCE .ROUTE ; Start 02/13/21 at 09:36; Stop 02/13/21 at 09:36; Status DC Ondansetron HCl (Zofran) 4 mg STK-MED ONCE .ROUTE ; Start 02/13/21 at 09:36; Stop 02/13/21 at 09:36; Status DC Rocuronium [place] (Zemuron) 50 mg STK-MED ONCE .ROUTE ; Start 02/13/21 at 09:36; Stop 02/13/21 at 09:36; Status DC Succinylcholine Chloride (Anectine) 200 mg STK-MED ONCE .ROUTE ; Start 02/13/21 at 09:38; Stop 02/13/21 at 09:38; Status DC Cefazolin Sodium/ Dextrose 0 ml @ As Directed STK-MED ONCE IV ; Start 02/13/21 at 09:45; Stop 02/13/21 at 09:45; Status DC Cefazolin Sodium (Ancef) 1 gm 1X PREOP PRN IVP PRIOR TO PROCEDURE; Start 02/13/21 at 10:00; Stop 02/13/21 at 15:08; Status DC Fentanyl Citrate (Fentanyl 2ml Vial) 100 mcg STK-MED ONCE .ROUTE ; Start 02/13/21 at 12:53; Stop 02/13/21 at 12:53; Status DC Rocuronium [place] (Zemuron) 50 mg STK-MED ONCE .ROUTE ; Start 02/13/21 at 13:53; Stop 02/13/21 at 13:54; Status DC Fentanyl Citrate (Fentanyl 2ml Vial) 100 mcg STK-MED ONCE .ROUTE ; Start 02/13/21 at 09:38; Stop 02/13/21 at 15:05; Status DC Hydromorphone HCl (Dilaudid) 2 mg STK-MED ONCE .ROUTE ; Start 02/13/21 at 15:42; Stop 02/13/21 at 15:43; Status DC Glycopyrrolate (Robinul) 1 mg STK-MED ONCE .ROUTE ; Start 02/13/21 at 16:33; Stop 02/13/21 at 16:33; Status DC Neostigmine [place] (Neostigmine Methylsulfate) 5 mg STK-MED ONCE .ROUTE ; Start 02/13/21 at 16:33; Stop 02/13/21 at 16:33; Status DC Enoxaparin Sodium (Lovenox 40mg Syringe) 40 mg Q24H SQ Last administered on 02/15/21at 18:31; Start 02/13/21 at 18:00 Sodium Chloride (Normal Saline Flush) 3 ml QSHIFT PRN IV AFTER MEDS AND BLOOD DRAWS; Start 02/13/21 at 17:15 Sodium Chloride 1,000 ml @ 100 mls/hr Q10H IV Last administered on 02/15/21at 13:11; Start 02/13/21 at 17:15 Naloxone HCl (Narcan) 0.4 mg PRN Q2MIN PRN IV SEE INSTRUCTIONS; Start 02/13/21 at 17:15 Sodium Chloride 1,000 ml @ 25 mls/hr Q24H IV ; Start 02/13/21 at 17:15 Hydromorphone HCl 30 ml @ 0 mls/hr CONT PRN PRN IV PER PROTOCOL Last administered on 02/13/21at 23:54; Start 02/13/21 at 17:15 Ondansetron HCl (Zofran) 4 mg PRN Q6HRS PRN IVP NAUESA, 1ST CHOICE Last administered on 02/15/21at 02:24; Start 02/13/21 at 17:15 Hydromorphone HCl (Dilaudid) 2 mg STK-MED ONCE .ROUTE ; Start 02/13/21 at 17:45; Stop 02/13/21 at 17:45; Status DC Fentanyl Citrate (Fentanyl 2ml Vial) 100 mcg STK-MED ONCE .ROUTE ; Start 02/13 at 17:45; Stop 02/13/21 at 17:46; Status DC Ketorolac Tromethamine (Toradol 15mg Vial) 15 mg 1X ONCE IVP Last administered on 02/14/21at 09:33; Start 02/14/21 at 09:15; Stop 02/14/21 at 09:19; Status DC Info (FLU VACCINE SCREEN per RX) 1 each PRN DAILY PRN MC SEE COMMENTS; Start 02/14/21 at 23:30; Status Cancel Metoprolol Tartrate (Lopressor Vial) 5 mg PRN Q5MIN PRN IVP TACHYCARDIA Last administered on 02/15/21at 20:46; Start 02/15/21 at 20:15 Acetaminophen (Tylenol) 1,000 mg 1X ONCE PO Last administered on 02/15/21at 20:24; Start 02/15/21 at 20:15; Stop 02/15/21 at 20:16; Status DC Sodium Chloride 500 ml @ 500 mls/hr 1X ONCE IV ; Start 02/15/21 at 21:30; Stop 02/15/21 at 22:29; Status DC Ipratropium [place] (Atrovent) 0.5 mg 1X ONCE NEB ; Start 02/15/21 at 22:00; Stop 02/15/21 at 22:01; Status DC Ipratropium [place] (Atrovent) 0.5 mg RTQID NEB Last administered on 02/16/21at 11:00; Start 02/16/21 at 08:00 Vancomycin HCl (Vanco Per Pharmacy) 1 each PRN DAILY PRN MC SEE COMMENTS Last administered on 02/16/21at 03:40; Start 02/15/21 at 21:30; Stop 02/16/21 at 11:17; Status DC Cefepime HCl (Maxipime) 1 gm Q24H IVP Last administered on 02/15/21at 23:10; Start 02/15/21 at 22:00; Stop 02/16/21 at 11:18; Status DC Metronidazole 100 ml @ 100 mls/hr Q12HR IV Last administered on 02/16/21at 09:00; Start 02/15/21 at 22:00 Diltiazem HCl 125 mg/Sodium Chloride 125 ml @ 5 mls/hr CONT PRN IV SEE I/O RECORD Last administered on 02/16/21at 01:00; Start 02/15/21 at 21:30 Vancomycin HCl 1.75 gm/Sodium Chloride 500 ml @ 250 mls/hr 1X ONCE IV Last administered on 02/15/21at 23:00; Start 02/15/21 at 22:00; Stop 02/15/21 at 23:59; Status DC Methylprednisolone Sodium Succinate (SOLU-Medrol 40MG VIAL) 30 mg DAILY IV Last administered on 02/16/21at 09:30; Start 02/16/21 at 09:00 Vancomycin HCl 1 gm/Sodium Chloride 250 ml @ 250 mls/hr Q24H IV ; Start 02/16/21 at 23:00; Stop 02/16/21 at 11:16; Status DC Vancomycin HCl (Vancomycin Trough Level) 1 each 1X ONCE MC ; Start 02/17/21 at 22:30; Stop 02/16/21 at 11:17; Status DC Cefepime HCl (Maxipime) 2 gm Q12HR IVP Last administered on 02/16/21at 12:21; Start 02/16/21 at 12:00 Linezolid/Dextrose 300 ml @ 300 mls/hr Q12HR IV Last administered on 02/16/21at 12:22; Start 02/16/21 at 12:00 Info (Tpn Per Pharmacy) 1 each PRN DAILY PRN MC SEE COMMENTS; Start 02/16/21 at 14:00 Furosemide (Lasix) 20 mg 1X ONCE IVP ; Start 02/16/21 at 14:15; Stop 02/16/21 at 14:16; Status DC Active Scripts Active Reported Vitamin B12 (Cyanocobalamin (Vitamin B-12)) 2,500 Mcg Tablet 500 Mg PO BID Nexium Capsule (Esomeprazole Magnesium) 40 Mg Capsule. 1 Cap PO BID Calcium 600 + Vit D 800 Tab (Calcium Carbonate/Vitamin D3) 1 Each Tablet 1 Tab PO BID 30 Days Benefiber (Wheat Dextrin) 1 Each Powd.pack 1 Each PO DAILY Lisinopril 10 Mg Tablet 1 Tab PO DAILY Leflunomide 10 Mg Tablet 10 Mg PO DAILY Prednisone 2.5 Mg Tablet 5 Mg PO DAILY Metoprolol Tartrate 25 Mg Tablet 1 Tab PO DAILY Hydrocodone-Apap 5-325 (Hydrocodone Bit/Acetaminophen) 1 Tab Tablet 1 Tab PO PRN BID PRN Gabapentin 100 Mg Capsule 100 Mg PO PRN BID PRN Folic Acid 0.8 Mg Tablet 3 Mg PO DAILY Cymbalta (Duloxetine Hcl) 30 Mg Capsule. 1 Cap PO DAILY Prolia (Denosumab) 60 Mg/1 Ml Disp.syrin 1 Syr SQ [id number] 1 Days Celexa (Citalopram Hydrobromide) 10 Mg Tablet 1 Tab PO DAILY Alprazolam 0.25 Mg Tablet 0.25 Mg PO PRN DAILY PRN Allergies Allergies: Coded Allergies: adhesive tape (Verified Allergy, Intermediate, 02/13/21) Vitals VITALS Vital Signs Date Time Temp Pulse Resp B/P (MAP) Pulse Ox O2 Delivery O2 Flow Rate FiO2 02/16/21 12:00 97.4 84 21 113/41 (65) 93 Nasal Cannula 3.0 97.4 Labs Labs Laboratory Tests Test 02/15/21 11:10 02/15/21 20:09 02/15/21 22:13 02/16/21 07:40 White Blood Count 13.3 x10^3/uL (4.0-11.0) 14.3 x10^3/uL (4.0-11.0) Red Blood Count 3.67 x10^6/uL (3.50-5.40) 3.29 x10^6/uL (3.50-5.40) Hemoglobin 10.7 g/dL (12.0-15.5) 9.8 g/dL (12.0-15.5) Hematocrit 33.1 % (36.0-47.0) 29.5 % (36.0-47.0) Mean Corpuscular Volume 90 fL (79-100) 90 fL (79-100) Mean Corpuscular Hemoglobin 29 pg (25-35) 30 pg (25-35) Mean Corpuscular Hemoglobin Concent 32 g/dL (31-37) 33 g/dL (31-37) Red Cell Distribution Width 15.1 % (11.5-14.5) 15.3 % (11.5-14.5) Platelet Count 212 x10^3/uL (140-400) 224 x10^3/uL (140-400) Neutrophils (%) (Auto) 78 % (31-73) 80 % (31-73) Lymphocytes (%) (Auto) 10 % (24-48) 8 % (24-48) Monocytes (%) (Auto) 12 % (0-9) 12 % (0-9) Eosinophils (%) (Auto) 0 % (0-3) 0 % (0-3) Basophils (%) (Auto) 0 % (0-3) 0 % (0-3) Neutrophils # (Auto) 10.3 x10^3/uL (1.8-7.7) 11.4 x10^3/uL (1.8-7.7) Lymphocytes # (Auto) 1.3 x10^3/uL (1.0-4.8) 1.2 x10^3/uL (1.0-4.8) Monocytes # (Auto) 1.6 x10^3/uL (0.0-1.1) 1.6 x10^3/uL (0.0-1.1) Eosinophils # (Auto) 0.0 x10^3/uL (0.0-0.7) 0.0 x10^3/uL (0.0-0.7) Basophils # (Auto) 0.0 x10^3/uL (0.0-0.2) 0.0 x10^3/uL (0.0-0.2) O2 Saturation 93 % (92-99) Arterial Blood pH 7.39 (7.35-7.45) Arterial Blood pCO2 at Patient Temp 26 mmHg (35-46) Arterial Blood pO2 at Patient Temp 68 mmHg (65-108) Arterial Blood HCO3 15 mmol/L (21-28) Arterial Blood Base Excess -8 mmol/L (-3-3) FiO2 32 Glucose (Fingerstick) 99 mg/dL (70-99) Sodium Level 132 mmol/L (136-145) Potassium Level 3.5 mmol/L (3.5-5.1) Chloride Level 100 mmol/L (98-107) Carbon Dioxide Level 18 mmol/L (21-32) Anion Gap 14 (6-14) Blood Urea Nitrogen 31 mg/dL (7-20) Creatinine 0.8 mg/dL (0.6-1.0) Estimated GFR (Cockcroft-Gault) 69.6 BUN/Creatinine Ratio 39 (6-20) Glucose Level 85 mg/dL (70-99) Lactic Acid Level 1.2 mmol/L (0.4-2.0) Calcium Level 6.7 mg/dL (8.5-10.1) Phosphorus Level 2.1 mg/dL (2.6-4.7) Magnesium Level 2.1 mg/dL (1.8-2.4) Total Bilirubin 0.6 mg/dL (0.2-1.0) Aspartate Amino Transf (AST/SGOT) 35 U/L (15-37) Alanine Aminotransferase (ALT/SGPT) 19 U/L (14-59) Alkaline Phosphatase 57 U/L (46-116) NJ-Rse-K-Type Natriuretic Peptide 6407 pg/mL (0-449) Total Protein 5.9 g/dL (6.4-8.2) Albumin 1.8 g/dL (3.4-5.0) Albumin/Globulin Ratio 0.4 (1.0-1.7) Laboratory Tests Test 02/15/21 20:09 02/15/21 22:13 02/16/21 07:40 O2 Saturation 93 % (92-99) Arterial Blood pH 7.39 (7.35-7.45) Arterial Blood pCO2 at Patient Temp 26 mmHg (35-46) Arterial Blood pO2 at Patient Temp 68 mmHg (65-108) Arterial Blood HCO3 15 mmol/L (21-28) Arterial Blood Base Excess -8 mmol/L (-3-3) FiO2 32 Glucose (Fingerstick) 99 mg/dL (70-99) White Blood Count 14.3 x10^3/uL (4.0-11.0) Red Blood Count 3.29 x10^6/uL (3.50-5.40) Hemoglobin 9.8 g/dL (12.0-15.5) Hematocrit 29.5 % (36.0-47.0) Mean Corpuscular Volume 90 fL (79-100) Mean Corpuscular Hemoglobin 30 pg (25-35) Mean Corpuscular Hemoglobin Concent 33 g/dL (31-37) Red Cell Distribution Width 15.3 % (11.5-14.5) Platelet Count 224 x10^3/uL (140-400) Neutrophils (%) (Auto) 80 % (31-73) Lymphocytes (%) (Auto) 8 % (24-48) Monocytes (%) (Auto) 12 % (0-9) Eosinophils (%) (Auto) 0 % (0-3) Basophils (%) (Auto) 0 % (0-3) Neutrophils # (Auto) 11.4 x10^3/uL (1.8-7.7) Lymphocytes # (Auto) 1.2 x10^3/uL (1.0-4.8) Monocytes # (Auto) 1.6 x10^3/uL (0.0-1.1) Eosinophils # (Auto) 0.0 x10^3/uL (0.0-0.7) Basophils # (Auto) 0.0 x10^3/uL (0.0-0.2) Sodium Level 132 mmol/L (136-145) Potassium Level 3.5 mmol/L (3.5-5.1) Chloride Level 100 mmol/L (98-107) Carbon Dioxide Level 18 mmol/L (21-32) Anion Gap 14 (6-14) Blood Urea Nitrogen 31 mg/dL (7-20) Creatinine 0.8 mg/dL (0.6-1.0) Estimated GFR (Cockcroft-Gault) 69.6 BUN/Creatinine Ratio 39 (6-20) Glucose Level 85 mg/dL (70-99) Lactic Acid Level 1.2 mmol/L (0.4-2.0) Calcium Level 6.7 mg/dL (8.5-10.1) Phosphorus Level 2.1 mg/dL (2.6-4.7) Magnesium Level 2.1 mg/dL (1.8-2.4) Total Bilirubin 0.6 mg/dL (0.2-1.0) Aspartate Amino Transf (AST/SGOT) 35 U/L (15-37) Alanine Aminotransferase (ALT/SGPT) 19 U/L (14-59) Alkaline Phosphatase 57 U/L (46-116) YT-Fgi-G-Type Natriuretic Peptide 6407 pg/mL (0-449) Total Protein 5.9 g/dL (6.4-8.2) Albumin 1.8 g/dL (3.4-5.0) Albumin/Globulin Ratio 0.4 (1.0-1.7) ALICE LOVE MD Feb 16, 2021 14:18
[2021-02-16] MEDS: TPN PER PHARMACY MC PRN (14:33)
--- NOTE | 2021-02-16 14:35 | NUR ---
Pharmacy TPN Dosing Note S: LYNDSEY JOSUE is a 75 year old F Currently receiving Central Continuous TPN started 02/16/21 B:Pertinent PMH: NPO s/p hernia repair Height: 4 feet, 9 inches Weight: 72.2 kg Current diet: npo LABS: Sodium: 132 Potassium: 3.5 Chloride: 100 Calcium: 6.7 Corrected Calcium: 8.46 Magnesium: 2.1 CO2: 18 SCr: 0.8 Glucose: 85 Albumin: 1.8 AST: 35 ALT: 19 TPN FORMULA: TPN TYPE: Central Continuous AMINO ACIDS: 60 gm DEXTROSE: 195 gm LIPIDS: 20 gm SODIUM CHLORIDE: 90 mEq SODIUM ACETATE: mEq SODIUM PHOSPHATE: mmol POTASSIUM CHLORIDE: 50 mEq POTASSIUM ACETATE: mEq POTASSIUM PHOSPHATE: 20 mmol MAGNESIUM: 10 mEq CALCIUM: 10 mEq INSULIN: units MULTIPLE VITAMIN: 10 ml TRACE ELEMENTS: 1 ml(s) TPN PLAN: Getting PICC today, npo since friday, not ok'd for clears Start standard TPN formula Phos 2.1- will give 15mmol KPhos x1, and will start w/ KPhos 20mmol in TPN Getting lasix today, will fluid concentrate as much as possible Labs in the am R: Continue TPN as written above. Will monitor electrolytes, glucose, and tolerance to TPN. CLIFFORD SANABRIA [facility], 02/16/21 [id number]
[2021-02-16] MEDS ORDERED: POTASSIUM PHOSPHATE DIBASIC 15 MMOL in IV NS 100 ML IV ONE (15:00)
--- NOTE | 2021-02-16 15:36 | NUR ---
SS following for discharge planning. SS reviewed pt chart and discussed with pt RN. Pt is from home and is currently requiring oxygen at three liters nasal canula. Pt has home oxygen. Pt transferred down to ICU for AFIB/RVR. Pt on Cardizem drip, IV Cefepime, IV Zyvox, IV Solu-Medrol, and TPN. SS will continue to follow for discharge planning.
--- NOTE | 2021-02-16 15:38 | RAD ---
XR CHEST 1V CLINICAL INDICATIONS: Reason: LINE PLACEMENT / Spl. Instructions: / History: COMPARISON: February 15, 2021. Findings: Left hemidiaphragm is better visualized today consistent with improvement of left-sided ple ural effusion and/or left lung base infiltrate. There is new ill-defined peripheral lung infiltrates on the right side. Elevation of the right hemidiaphragm is unchanged. Minimal right-sided pleural eff usion is still evident. Right upper extremity PICC line has been placed and the tip is seen within th e lower SVC at the junction with the right atrium. No pneumothorax is seen. Heart size and pulmonary vasculature and mediastinum and both rashmi are unchanged. Mild dilatation of bowel loops is unchanged. IMPRESSION: Improvement of left lung base infiltrate or left-sided pleural effusion. New ill-defined small infiltrates are seen within the periphery of the right lung field. Stable minim al right-sided pleural effusion. Electronically signed by: Jay West MD (02/16/2021 3:36 PM) [id number]
--- NOTE | 2021-02-16 16:42 | NUR ---
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
[2021-02-16] MEDS: ENOXAPARIN 40 MG/0.4 ML SYRINGE. SQ SCH (21:25)
[2021-02-16] MEDS ORDERED: TOTAL PARENTERAL NUTRITION IV SCH (22:00)
[2021-02-16] MEDS ORDERED: AMINO ACID IV SCH (22:00)
[2021-02-16] MEDS ORDERED: [UNRECOGNIZED DRUG - OTHER] IV SCH (22:00)
[2021-02-16] MEDS ORDERED: DEXTROSE 70% IV SCH (22:00)
[2021-02-16] MEDS ORDERED: VANCOMYCIN 1 GM in IV NORMAL SALINE 250ML 250 ML IV SCH (23:00)
[2021-02-17] VITALS (10 sets, daily range): BP systolic 155–189; BP diastolic 54–80
[2021-02-17] MEDS: IV 1/2 NORMAL SALINE 1,000 ML IV SCH (01:15)
[2021-02-17] MEDS: ONDANSETRON PF 4 MG/2 ML VIAL. IVP PRN ×2 (07:01→21:25)
--- NOTE | 2021-02-17 07:03 | PDOC ---
PULMONARY PROGRESS NOTES DATE: 02/17/21 TIME: 07:02 Subjective on 02 3 lpm tired sob better on cardizem gtt afib rate controlled on tpn afebrile Vitals Vital Signs Date Time Temp Pulse Resp B/P (MAP) Pulse Ox O2 Delivery O2 Flow Rate FiO2 02/17/21 03:00 94 15 172/66 (101) 94 Nasal Cannula 3.0 02/17/21 00:00 97.6 97.6 Comments ros as mentioned above other sys otherwise neg General: Alert HEENT: Other (nc at perrl nose throat clear neck no lad no thyromegaly) Lungs: Crackles Cardiovascular: Other (irreg irreg ) Abdomen: Soft Neuro Exam: Alert Skin: Warm Labs Laboratory Tests Test 02/15/21 11:10 02/15/21 20:09 02/15/21 22:13 02/16/21 07:40 White Blood Count 13.3 x10^3/uL (4.0-11.0) 14.3 x10^3/uL (4.0-11.0) Red Blood Count 3.67 x10^6/uL (3.50-5.40) 3.29 x10^6/uL (3.50-5.40) Hemoglobin 10.7 g/dL (12.0-15.5) 9.8 g/dL (12.0-15.5) Hematocrit 33.1 % (36.0-47.0) 29.5 % (36.0-47.0) Mean Corpuscular Volume 90 fL (79-100) 90 fL (79-100) Mean Corpuscular Hemoglobin 29 pg (25-35) 30 pg (25-35) Mean Corpuscular Hemoglobin Concent 32 g/dL (31-37) 33 g/dL (31-37) Red Cell Distribution Width 15.1 % (11.5-14.5) 15.3 % (11.5-14.5) Platelet Count 212 x10^3/uL (140-400) 224 x10^3/uL (140-400) Neutrophils (%) (Auto) 78 % (31-73) 80 % (31-73) Lymphocytes (%) (Auto) 10 % (24-48) 8 % (24-48) Monocytes (%) (Auto) 12 % (0-9) 12 % (0-9) Eosinophils (%) (Auto) 0 % (0-3) 0 % (0-3) Basophils (%) (Auto) 0 % (0-3) 0 % (0-3) Neutrophils # (Auto) 10.3 x10^3/uL (1.8-7.7) 11.4 x10^3/uL (1.8-7.7) Lymphocytes # (Auto) 1.3 x10^3/uL (1.0-4.8) 1.2 x10^3/uL (1.0-4.8) Monocytes # (Auto) 1.6 x10^3/uL (0.0-1.1) 1.6 x10^3/uL (0.0-1.1) Eosinophils # (Auto) 0.0 x10^3/uL (0.0-0.7) 0.0 x10^3/uL (0.0-0.7) Basophils # (Auto) 0.0 x10^3/uL (0.0-0.2) 0.0 x10^3/uL (0.0-0.2) O2 Saturation 93 % (92-99) Arterial Blood pH 7.39 (7.35-7.45) Arterial Blood pCO2 at Patient Temp 26 mmHg (35-46) Arterial Blood pO2 at Patient Temp 68 mmHg (65-108) Arterial Blood HCO3 15 mmol/L (21-28) Arterial Blood Base Excess -8 mmol/L (-3-3) FiO2 32 Glucose (Fingerstick) 99 mg/dL (70-99) Sodium Level 132 mmol/L (136-145) Potassium Level 3.5 mmol/L (3.5-5.1) Chloride Level 100 mmol/L (98-107) Carbon Dioxide Level 18 mmol/L (21-32) Anion Gap 14 (6-14) Blood Urea Nitrogen 31 mg/dL (7-20) Creatinine 0.8 mg/dL (0.6-1.0) Estimated GFR (Cockcroft-Gault) 69.6 BUN/Creatinine Ratio 39 (6-20) Glucose Level 85 mg/dL (70-99) Lactic Acid Level 1.2 mmol/L (0.4-2.0) Calcium Level 6.7 mg/dL (8.5-10.1) Phosphorus Level 2.1 mg/dL (2.6-4.7) Magnesium Level 2.1 mg/dL (1.8-2.4) Total Bilirubin 0.6 mg/dL (0.2-1.0) Aspartate Amino Transf (AST/SGOT) 35 U/L (15-37) Alanine Aminotransferase (ALT/SGPT) 19 U/L (14-59) Alkaline Phosphatase 57 U/L (46-116) LS-Sma-N-Type Natriuretic Peptide 6407 pg/mL (0-449) Total Protein 5.9 g/dL (6.4-8.2) Albumin 1.8 g/dL (3.4-5.0) Albumin/Globulin Ratio 0.4 (1.0-1.7) Laboratory Tests Test 02/16/21 07:40 White Blood Count 14.3 x10^3/uL (4.0-11.0) Red Blood Count 3.29 x10^6/uL (3.50-5.40) Hemoglobin 9.8 g/dL (12.0-15.5) Hematocrit 29.5 % (36.0-47.0) Mean Corpuscular Volume 90 fL (79-100) Mean Corpuscular Hemoglobin 30 pg (25-35) Mean Corpuscular Hemoglobin Concent 33 g/dL (31-37) Red Cell Distribution Width 15.3 % (11.5-14.5) Platelet Count 224 x10^3/uL (140-400) Neutrophils (%) (Auto) 80 % (31-73) Lymphocytes (%) (Auto) 8 % (24-48) Monocytes (%) (Auto) 12 % (0-9) Eosinophils (%) (Auto) 0 % (0-3) Basophils (%) (Auto) 0 % (0-3) Neutrophils # (Auto) 11.4 x10^3/uL (1.8-7.7) Lymphocytes # (Auto) 1.2 x10^3/uL (1.0-4.8) Monocytes # (Auto) 1.6 x10^3/uL (0.0-1.1) Eosinophils # (Auto) 0.0 x10^3/uL (0.0-0.7) Basophils # (Auto) 0.0 x10^3/uL (0.0-0.2) Sodium Level 132 mmol/L (136-145) Potassium Level 3.5 mmol/L (3.5-5.1) Chloride Level 100 mmol/L (98-107) Carbon Dioxide Level 18 mmol/L (21-32) Anion Gap 14 (6-14) Blood Urea Nitrogen 31 mg/dL (7-20) Creatinine 0.8 mg/dL (0.6-1.0) Estimated GFR (Cockcroft-Gault) 69.6 BUN/Creatinine Ratio 39 (6-20) Glucose Level 85 mg/dL (70-99) Lactic Acid Level 1.2 mmol/L (0.4-2.0) Calcium Level 6.7 mg/dL (8.5-10.1) Phosphorus Level 2.1 mg/dL (2.6-4.7) Magnesium Level 2.1 mg/dL (1.8-2.4) Total Bilirubin 0.6 mg/dL (0.2-1.0) Aspartate Amino Transf (AST/SGOT) 35 U/L (15-37) Alanine Aminotransferase (ALT/SGPT) 19 U/L (14-59) Alkaline Phosphatase 57 U/L (46-116) DS-Tfi-O-Type Natriuretic Peptide 6407 pg/mL (0-449) Total Protein 5.9 g/dL (6.4-8.2) Albumin 1.8 g/dL (3.4-5.0) Albumin/Globulin Ratio 0.4 (1.0-1.7) Medications Active Scripts Medications Dose Route/Sig Max Daily Dose Days Date Category Vitamin B12 (Cyanocobalamin (Vitamin B-12)) 2,500 Mcg Tablet 500 Mg PO BID 02/15/21 Reported Nexium Capsule (Esomeprazole Magnesium) 40 Mg Capsule.dr 1 Cap PO BID 02/15/21 Reported Calcium 600 + Vit D 800 Tab (Calcium Carbonate/Vitamin D3) 1 Each Tablet 1 Tab PO BID 30 02/15/21 Reported Benefiber (Wheat Dextrin) 1 Each Powd.pack 1 Each PO DAILY 02/15/21 Reported Lisinopril 10 Mg Tablet 1 Tab PO DAILY 02/15/21 Reported Leflunomide 10 Mg Tablet 10 Mg PO DAILY 02/15/21 Reported Prednisone 2.5 Mg Tablet 5 Mg PO DAILY 02/15/21 Reported Metoprolol Tartrate 25 Mg Tablet 1 Tab PO DAILY 02/15/21 Reported Hydrocodone-Apap 5-325 (Hydrocodone Bit/Acetaminophen) 1 Tab Tablet 1 Tab PO PRN BID PRN 02/15/21 Reported Gabapentin 100 Mg Capsule 100 Mg PO PRN BID PRN 02/15/21 Reported Folic Acid 0.8 Mg Tablet 3 Mg PO DAILY 02/15/21 Reported Cymbalta (Duloxetine Hcl) 30 Mg Capsule.dr 1 Cap PO DAILY 02/15/21 Reported Prolia (Denosumab) 60 Mg/1 Ml Disp.syrin 1 Syr SQ [id number] 1 02/15/21 Reported Celexa (Citalopram Hydrobromide) 10 Mg Tablet 1 Tab PO DAILY 02/15/21 Reported Alprazolam 0.25 Mg Tablet 0.25 Mg PO PRN DAILY PRN 02/15/21 Reported Comments cxr 02/17 reviewed Bilateral interstitial opacities and low lung volumes are unchanged. Impression . IMPRESSION: 1. Acute hypoxemic respiratory failure, multifactorial. 2. Abnormal x-ray, compatible with effusion, possibly congestive heart failure. Possible pneumonia. 3. afib w rvr now rate controlled 4. Leukocytosis. 5. Fever. 6. Status post large ventral hernia repair on 02/13. 7. Rheumatoid arthritis with previously diagnosed as interstitial lung disease. 8. Hypertension. 9. Breast cancer, status post radiation. 10. Tobacco dependence, in remission. 11. Chronic obstructive pulmonary disease, unknown FEV1. Plan . PLAN: 1. Continue current support with oxygen supplementation. titrate fio2 to keep sat 92% 2. Empiric antibiotics. zyvox cefepime 3. Chest x-ray reviewed, possible CHF. follow Cardiology rec 4. on cardizem gtt afib rate controlled 5. Diurese monitor k cr 6. start IS 7. change solumedrol to 40 daily 8. BD atrovent only avoid albuterol 9. lovenox for dvt prophylaxis discussed w JAYLYN Yun MD Feb 17, 2021 07:03
[2021-02-17] MEDS: IPRATROPIUM BROMIDE 0.5 MG/2.5 ML NEBU. NEB SCH ×4 (07:34→20:00)
[2021-02-17 08:24] LABS: CALCIUM 7.3 mg/dL (8.5-10.1); GFR 53.8; MAGNESIUM 2.7 mg/dL (1.8-2.4); PHOSPHORUS 1.8 mg/dL (2.6-4.7); POTASSIUM 4.3 mmol/L (3.5-5.1)
[2021-02-17] MEDS: CEFEPIME HCL IV Push 2 GM VIAL. IVP SCH ×2 (09:10→21:09)
[2021-02-17] MEDS: methylPREDNISolone SOD SUCC PF 40 MG/ML VIAL. IV SCH (09:10)
--- NOTE | 2021-02-17 09:12 | RAD ---
XR CHEST 1V Clinical Indication: Reason: SOA Comparison: AP chest, prior day. Findings: Stable right PICC. Atherosclerotic thoracic aorta. The cardiomediastinal silhouette is stable. There are low lung volume s. Bilateral interstitial opacities are unchanged. There is no pneumothorax. No pleural effusion is a ppreciated. No acute bone abnormality. There are stable left axillary surgical clips. IMPRESSION: Bilateral interstitial opacities and low lung volumes are unchanged. Electronically signed by: Wu Cardoza MD (02/17/2021 9:10 AM) [id number]
[2021-02-17] MEDS ORDERED: FUROSEMIDE 40 MG/4 ML VIAL. IVP ONE (09:15)
[2021-02-17] MEDS ORDERED: SODIUM PHOSPHATE 20 MMOL in IV NORMAL SALINE 250ML 250 ML IV ONE (09:15)
[2021-02-17] MEDS: TPN PER PHARMACY MC PRN (09:18)
--- NOTE | 2021-02-17 09:18 | NUR ---
Pharmacy TPN Dosing Note S: LYNDSEY JOSUE is a 75 year old F Currently receiving Central Continuous TPN started 02/16/21 B:Pertinent PMH: NPO s/p hernia repair Height: 4 feet, 9 inches Weight: 74.2 kg Current diet: npo LABS: Sodium: 135 Potassium: 4.3 Chloride: 103 Calcium: 7.3 Corrected Calcium: 9.06 Magnesium: 2.7 CO2: 19 SCr: 1 Glucose: 206 Albumin: 1.8 AST: 35 ALT: 19 TPN FORMULA: TPN TYPE: Central Continuous AMINO ACIDS: 60 gm DEXTROSE: 195 gm LIPIDS: 20 gm SODIUM CHLORIDE: 90 mEq SODIUM PHOSPHATE: 10 mmol POTASSIUM CHLORIDE: 50 mEq POTASSIUM PHOSPHATE: 20 mmol MAGNESIUM: 5 mEq MULTIPLE VITAMIN: 10 ml TRACE ELEMENTS: 1 ml TPN PLAN: -Requiring IV Lasix IV push this AM, reduce rate further. -Serum phos low, give NaPhos 20 mmol x 1. Add NaPhos 10 mmol to TPN. -Serum mag high, reduce mag sulfate to 5 mEq/day. -Remove calcium from TPN due to phos addition and rate reduction. -BMP, mag, phos tomorrow. R: Change TPN to 45 ml/hr and above formula. Will monitor electrolytes, glucose, and tolerance to TPN. [facility], 02/17/21 [id number]
[2021-02-17] MEDS ORDERED: NS IV ONE (10:00)
[2021-02-17] MEDS ORDERED: SODIUM PHOSPHATE IV ONE (10:00)
--- NOTE | 2021-02-17 10:42 | PDOC ---
[facility] [facility] PROGRESS NOTE Date of Service DOS: DATE: 02/17/21 TIME: 10:40 Chief Complaint Chief Complaint Abdominal pain History of Present Illness History of Present Illness This patient was sent here for a ventral hernia repair which he underwent on February 13. Patient under the care of general surgery team. Patient had done really well after surgery initially she was actually planning to start trialing liquids yesterday however she had some worsening in her overall status concerning for sepsis. She was hypotensive and tachycardic up to the 160s. Her work-up showed A. fib with RVR requiring a Cardizem drip. Was evaluated by Dr. Caro who was concerned about her status recommending ICU transfer. Infectious Disease and pulmonary were consulted. Patient started on broad-spectrum antibiotics. Pulmonary following. 02/16 Patient evaluated in the ICU today. Her condition has significantly improved since last night. She is awake alert and oriented able to answer questions says pain is under control. Blood pressure holding steady. Remains on Cardizem drip. Continue antibiotics today. Suspect she can transfer out of ICU if beds are needed. Requesting to drink if she can, will defer this decision to surgery. 02/17 Patient evaluated at bedside. She is complaining about some shortness of breath but is feeling comfortable. Vitals look normal. at bedside is very concerned and tried to reassure him. Continue current plan. We will try 1 dose of Lasix today based upon chest x-ray. Vitals/I&O Vitals/I&O: Vital Signs Date Time Temp Pulse Resp B/P (MAP) Pulse Ox O2 Delivery O2 Flow Rate FiO2 02/17/21 08:00 Nasal Cannula 3.0 02/17/21 07:34 95 02/17/21 07:00 96.7 96.7 02/17/21 07:00 88 18 189/80 (116) I & O 02/16/21 02/16/21 02/17/21 15:00 23:00 07:00 Intake Total 0 ml 935.8 ml 120 ml Output Total 285 ml 580 ml 530 ml Balance -285 ml 355.8 ml -410 ml Physical Exam General: Alert, Oriented X3, Cooperative, No acute distress Heart: Regular rate, Other Lungs: Other (Decreased throughout) Abdomen: Soft, Other (dressing intact, drains serosang) Extremities: No edema, Normal pulses Skin: No significant lesion Labs Labs: Laboratory Tests Test 02/17/21 07:55 Sodium Level 135 mmol/L (136-145) Potassium Level 4.3 mmol/L (3.5-5.1) Chloride Level 103 mmol/L (98-107) Carbon Dioxide Level 19 mmol/L (21-32) Anion Gap 13 (6-14) Blood Urea Nitrogen 40 mg/dL (7-20) Creatinine 1.0 mg/dL (0.6-1.0) Estimated GFR (Cockcroft-Gault) 53.8 Glucose Level 206 mg/dL (70-99) Calcium Level 7.3 mg/dL (8.5-10.1) Phosphorus Level 1.8 mg/dL (2.6-4.7) Magnesium Level 2.7 mg/dL (1.8-2.4) Assessment and Plan Assessmemt and Plan Assessmemt and Plan Sepsis status post large ventral hernia repair on 02/13, acute hypoxic respiratory failure, interstitial lung disease, possible CHF -Continue antibiotics per infectious disease -Pulmonary following -General surgery primary team -Chest x-ray showing some fluid overload, cardiology already consulted for Afib RVR overnight, may need gentle dose of Lasix -Can transfer out of ICU to [facility] Comment Review of Relevant I have reviewed the following items keely (where applicable) has been applied. Medications: Current Medications Medications (Trade) Dose Ordered Sig/Isael Route PRN Reason Start Time Stop Time Status Last Admin Dose Admin Cefepime HCl (Maxipime) 2 gm Q12HR IVP 02/16/21 12:00 02/17/21 09:10 Linezolid/Dextrose 300 ml @ 300 mls/hr Q12HR IV 02/16/21 12:00 02/17/21 09:01 Info (Tpn Per Pharmacy) 1 each PRN DAILY PRN MC SEE COMMENTS 02/16/21 14:00 02/17/21 09:18 Furosemide (Lasix) 20 mg 1X ONCE IVP 02/16/21 14:15 02/16/21 14:16 DC 02/16/21 15:42 Potassium Phosphate 15 mmol/ Sodium Chloride 105 ml @ 52.5 mls/hr 1X ONCE IV 02/16/21 15:00 02/16/21 16:59 DC 02/16/21 15:43 Sodium Chloride 90 meq/Potassium Chloride 50 meq/ Potassium Phosphate 20 mmol/ Magnesium Sulfate 10 meq/Calcium Gluconate 10 meq/ Multivitamins 10 ml/Zinc/Copper/ Manganese/ Selenium 1 ml/ Total Parenteral Nutrition/Amino Acids/Dextrose/ Fat Emulsion Intravenous 1,296 ml @ 54 mls/hr TPN CONT IV 02/16/21 22:00 02/17/21 21:59 02/16/21 21:24 Furosemide (Lasix) 40 mg 1X ONCE IVP 02/17/21 09:15 02/17/21 09:16 DC 02/17/21 09:12 Justifications for Admission Other Justification BENY HUGGINS MD Feb 17, 2021 10:42
[2021-02-17] MEDS: METOPROLOL IV PUSH 5 MG/5 ML VIAL. IVP PRN (11:09)
[2021-02-17] MEDS ORDERED: MORPHINE SULFATE 2 MG/ML INJ. IVP ONE (11:15)
--- NOTE | 2021-02-17 11:45 | PDOC ---
PROGRESS NOTES Date of Service DATE: 02/17/21 TIME: 11:44 Subjective Subjective feeling "a bit better" Objective Objective Vital Signs Date Time Temp Pulse Resp B/P (MAP) Pulse Ox O2 Delivery O2 Flow Rate FiO2 02/17/21 11:20 22 98 Nasal Cannula 3.0 02/17/21 11:09 90 178/73 02/17/21 11:00 98.0 98.0 Intake and Output 02/17/21 07:00 Intake Total 1055.8 ml Output Total 1395 ml Balance -339.2 ml Intake Oral 360 ml IV Total 695.8 ml Output Urine Total 1215 ml Drainage Total 180 ml Physical Exam Abdomen: Soft (MILTON serosang) Assessment Assessment S/P VHR, afib Plan Plan of Care Supportive care, possibly start clears tomorrow Comment Review of Relevant I have reviewed the following items keely (where applicable) has been applied. Labs Laboratory Tests Test 02/15/21 20:09 02/15/21 22:13 02/16/21 07:40 02/17/21 07:55 O2 Saturation 93 % (92-99) Arterial Blood pH 7.39 (7.35-7.45) Arterial Blood pCO2 at Patient Temp 26 mmHg (35-46) Arterial Blood pO2 at Patient Temp 68 mmHg (65-108) Arterial Blood HCO3 15 mmol/L (21-28) Arterial Blood Base Excess -8 mmol/L (-3-3) FiO2 32 Glucose (Fingerstick) 99 mg/dL (70-99) White Blood Count 14.3 x10^3/uL (4.0-11.0) Red Blood Count 3.29 x10^6/uL (3.50-5.40) Hemoglobin 9.8 g/dL (12.0-15.5) Hematocrit 29.5 % (36.0-47.0) Mean Corpuscular Volume 90 fL (79-100) Mean Corpuscular Hemoglobin 30 pg (25-35) Mean Corpuscular Hemoglobin Concent 33 g/dL (31-37) Red Cell Distribution Width 15.3 % (11.5-14.5) Platelet Count 224 x10^3/uL (140-400) Neutrophils (%) (Auto) 80 % (31-73) Lymphocytes (%) (Auto) 8 % (24-48) Monocytes (%) (Auto) 12 % (0-9) Eosinophils (%) (Auto) 0 % (0-3) Basophils (%) (Auto) 0 % (0-3) Neutrophils # (Auto) 11.4 x10^3/uL (1.8-7.7) Lymphocytes # (Auto) 1.2 x10^3/uL (1.0-4.8) Monocytes # (Auto) 1.6 x10^3/uL (0.0-1.1) Eosinophils # (Auto) 0.0 x10^3/uL (0.0-0.7) Basophils # (Auto) 0.0 x10^3/uL (0.0-0.2) Sodium Level 132 mmol/L (136-145) 135 mmol/L (136-145) Potassium Level 3.5 mmol/L (3.5-5.1) 4.3 mmol/L (3.5-5.1) Chloride Level 100 mmol/L (98-107) 103 mmol/L (98-107) Carbon Dioxide Level 18 mmol/L (21-32) 19 mmol/L (21-32) Anion Gap 14 (6-14) 13 (6-14) Blood Urea Nitrogen 31 mg/dL (7-20) 40 mg/dL (7-20) Creatinine 0.8 mg/dL (0.6-1.0) 1.0 mg/dL (0.6-1.0) Estimated GFR (Cockcroft-Gault) 69.6 53.8 BUN/Creatinine Ratio 39 (6-20) Glucose Level 85 mg/dL (70-99) 206 mg/dL (70-99) Lactic Acid Level 1.2 mmol/L (0.4-2.0) Calcium Level 6.7 mg/dL (8.5-10.1) 7.3 mg/dL (8.5-10.1) Phosphorus Level 2.1 mg/dL (2.6-4.7) 1.8 mg/dL (2.6-4.7) Magnesium Level 2.1 mg/dL (1.8-2.4) 2.7 mg/dL (1.8-2.4) Total Bilirubin 0.6 mg/dL (0.2-1.0) Aspartate Amino Transf (AST/SGOT) 35 U/L (15-37) Alanine Aminotransferase (ALT/SGPT) 19 U/L (14-59) Alkaline Phosphatase 57 U/L (46-116) VB-Nrh-X-Type Natriuretic Peptide 6407 pg/mL (0-449) Total Protein 5.9 g/dL (6.4-8.2) Albumin 1.8 g/dL (3.4-5.0) Albumin/Globulin Ratio 0.4 (1.0-1.7) Laboratory Tests Test 02/17/21 07:55 Sodium Level 135 mmol/L (136-145) Potassium Level 4.3 mmol/L (3.5-5.1) Chloride Level 103 mmol/L (98-107) Carbon Dioxide Level 19 mmol/L (21-32) Anion Gap 13 (6-14) Blood Urea Nitrogen 40 mg/dL (7-20) Creatinine 1.0 mg/dL (0.6-1.0) Estimated GFR (Cockcroft-Gault) 53.8 Glucose Level 206 mg/dL (70-99) Calcium Level 7.3 mg/dL (8.5-10.1) Phosphorus Level 1.8 mg/dL (2.6-4.7) Magnesium Level 2.7 mg/dL (1.8-2.4) Medications Current Medications Fentanyl Citrate (Fentanyl 2ml Vial) 25 mcg PRN Q5MIN PRN IVP MILD PAIN 1-3 Last administered on 02/13/21at 18:23; Start 02/13/21 at 06:00; Stop 02/13/21 at 21:00; Status DC Fentanyl Citrate (Fentanyl 2ml Vial) 50 mcg PRN Q5MIN PRN IVP MODERATE PAIN 4-6 Last administered on 02/13/21at 17:53; Start 02/13/21 at 06:00; Stop 02/13/21 at 21:00; Status DC Morphine Sulfate (Morphine Sulfate) 1 mg PRN Q10MIN PRN IVP SEVERE PAIN 7-10; Start 02/13/21 at 06:00; Stop 02/13/21 at 21:00; Status DC Ringer's Solution 1,000 ml @ 30 mls/hr Q24H IV ; Start 02/13/21 at 06:00; Stop 02/13/21 at 18:00; Status DC Hydromorphone HCl (Dilaudid) 0.5 mg PRN Q10MIN PRN IVP SEVERE PAIN 7-10, 2nd CHOICE Last administered on 02/13/21at 18:18; Start 02/13/21 at 06:00; Stop 02/13/21 at 21:00; Status DC Prochlorperazine Edisylate (Compazine) 5 mg PACU PRN PRN IVP NAUSEA, MRX1; Start 02/13/21 at 06:00; Stop 02/13/21 at 21:00; Status DC Propofol (Diprivan) 200 mg STK-MED ONCE IV ; Start 02/13/21 at 09:36; Stop 02/13/21 at 09:36; Status DC Lidocaine HCl (Lidocaine Pf 2% Vial) 5 ml STK-MED ONCE .ROUTE ; Start 02/13/21 at 09:36; Stop 02/13/21 at 09:36; Status DC Dexamethasone Sodium Phosphate (Decadron) 4 mg STK-MED ONCE .ROUTE ; Start 02/13/21 at 09:36; Stop 02/13/21 at 09:36; Status DC Ondansetron HCl (Zofran) 4 mg STK-MED ONCE .ROUTE ; Start 02/13/21 at 09:36; Stop 02/13/21 at 09:36; Status DC Rocuronium [place] (Zemuron) 50 mg STK-MED ONCE .ROUTE ; Start 02/13/21 at 09:36; Stop 02/13/21 at 09:36; Status DC Succinylcholine Chloride (Anectine) 200 mg STK-MED ONCE .ROUTE ; Start 02/13/21 at 09:38; Stop 02/13/21 at 09:38; Status DC Cefazolin Sodium/ Dextrose 0 ml @ As Directed STK-MED ONCE IV ; Start 02/13/21 at 09:45; Stop 02/13/21 at 09:45; Status DC Cefazolin Sodium (Ancef) 1 gm 1X PREOP PRN IVP PRIOR TO PROCEDURE; Start 02/13/21 at 10:00; Stop 02/13/21 at 15:08; Status DC Fentanyl Citrate (Fentanyl 2ml Vial) 100 mcg STK-MED ONCE .ROUTE ; Start 02/13/21 at 12:53; Stop 02/13/21 at 12:53; Status DC Rocuronium [place] (Zemuron) 50 mg STK-MED ONCE .ROUTE ; Start 02/13/21 at 13:53; Stop 02/13/21 at 13:54; Status DC Fentanyl Citrate (Fentanyl 2ml Vial) 100 mcg STK-MED ONCE .ROUTE ; Start 02/13/21 at 09:38; Stop 02/13/21 at 15:05; Status DC Hydromorphone HCl (Dilaudid) 2 mg STK-MED ONCE .ROUTE ; Start 02/13/21 at 15:42; Stop 02/13/21 at 15:43; Status DC Glycopyrrolate (Robinul) 1 mg STK-MED ONCE .ROUTE ; Start 02/13/21 at 16:33; Stop 02/13/21 at 16:33; Status DC Neostigmine [place] (Neostigmine Methylsulfate) 5 mg STK-MED ONCE .ROUTE ; Start 02/13/21 at 16:33; Stop 02/13/21 at 16:33; Status DC Enoxaparin Sodium (Lovenox 40mg Syringe) 40 mg Q24H SQ Last administered on 02/16/21at 21:25; Start 02/13/21 at 18:00 Sodium Chloride (Normal Saline Flush) 3 ml QSHIFT PRN IV AFTER MEDS AND BLOOD DRAWS; Start 02/13/21 at 17:15 Sodium Chloride 1,000 ml @ 100 mls/hr Q10H IV Last administered on 02/15/21at 13:11; Start 02/13/21 at 17:15; Stop 02/17/21 at 11:03; Status DC Naloxone HCl (Narcan) 0.4 mg PRN Q2MIN PRN IV SEE INSTRUCTIONS; Start 02/13/21 at 17:15 Sodium Chloride 1,000 ml @ 25 mls/hr Q24H IV Last administered on 02/16/21at 09:00; Start 02/13/21 at 17:15 Hydromorphone HCl 30 ml @ 0 mls/hr CONT PRN PRN IV PER PROTOCOL Last administered on 02/13/21at 23:54; Start 02/13/21 at 17:15 Ondansetron HCl (Zofran) 4 mg PRN Q6HRS PRN IVP RICHARD, 1ST CHOICE Last administered on 02/17/21at 07:01; Start 02/13/21 at 17:15 Hydromorphone HCl (Dilaudid) 2 mg STK-MED ONCE .ROUTE ; Start 02/13/21 at 17:45; Stop 02/13/21 at 17:45; Status DC Fentanyl Citrate (Fentanyl 2ml Vial) 100 mcg STK-MED ONCE .ROUTE ; Start 02/13/21 at 17:45; Stop 02/13/21 at 17:46; Status DC Ketorolac Tromethamine (Toradol 15mg Vial) 15 mg 1X ONCE IVP Last administered on 02/14/21at 09:33; Start 02/14/21 at 09:15; Stop 02/14/21 at 09:19; Status DC Info (FLU VACCINE SCREEN per RX) 1 each PRN DAILY PRN MC SEE COMMENTS; Start 02/14/21 at 23:30; Status Cancel Metoprolol Tartrate (Lopressor Vial) 5 mg PRN Q5MIN PRN IVP TACHYCARDIA Last administered on 02/17/21at 11:09; Start 02/15/21 at 20:15 Acetaminophen (Tylenol) 1,000 mg 1X ONCE PO Last administered on 02/15/21at 20:24; Start 02/15/21 at 20:15; Stop 02/15/21 at 20:16; Status DC Sodium Chloride 500 ml @ 500 mls/hr 1X ONCE IV ; Start 02/15/21 at 21:30; Stop 02/15/21 at 22:29; Status DC Ipratropium [place] (Atrovent) 0.5 mg 1X ONCE NEB ; Start 02/15/21 at 22:00; Stop 02/15/21 at 22:01; Status DC Ipratropium [place] (Atrovent) 0.5 mg RTQID NEB Last administered on 02/17/21at 11:19; Start 02/16/21 at 08:00 Vancomycin HCl (Vanco Per Pharmacy) 1 each PRN DAILY PRN MC SEE COMMENTS Last administered on 02/16/21at 03:40; Start 02/15/21 at 21:30; Stop 02/16/21 at 11:17; Status DC Cefepime HCl (Maxipime) 1 gm Q24H IVP Last administered on 02/15/21at 23:10; Start 02/15/21 at 22:00; Stop 02/16/21 at 11:18; Status DC Metronidazole 100 ml @ 100 mls/hr Q12HR IV Last administered on 02/17/21at 09:01; Start 02/15/21 at 22:00 Diltiazem HCl 125 mg/Sodium Chloride 125 ml @ 5 mls/hr CONT PRN IV SEE I/O RECORD Last administered on 02/16/21at 23:06; Start 02/15/21 at 21:30 Vancomycin HCl 1.75 gm/Sodium Chloride 500 ml @ 250 mls/hr 1X ONCE IV Last administered on 02/15/21at 23:00; Start 02/15/21 at 22:00; Stop 02/15/21 at 23:59; Status DC Methylprednisolone Sodium Succinate (SOLU-Medrol 40MG VIAL) 30 mg DAILY IV Last administered on 02/17/21at 09:10; Start 02/16/21 at 09:00 Vancomycin HCl 1 gm/Sodium Chloride 250 ml @ 250 mls/hr Q24H IV ; Start 02/16/21 at 23:00; Stop 02/16/21 at 11:16; Status DC Vancomycin HCl (Vancomycin Trough Level) 1 each 1X ONCE MC ; Start 02/17/21 at 22:30; Stop 02/16/21 at 11:17; Status DC Cefepime HCl (Maxipime) 2 gm Q12HR IVP Last administered on 02/17/21at 09:10; Start 02/16/21 at 12:00 Linezolid/Dextrose 300 ml @ 300 mls/hr Q12HR IV Last administered on 02/17/21at 09:01; Start 02/16/21 at 12:00 Info (Tpn Per Pharmacy) 1 each PRN DAILY PRN MC SEE COMMENTS Last administered on 02/17/21at 09:18; Start 02/16/21 at 14:00 Furosemide (Lasix) 20 mg 1X ONCE IVP Last administered on 02/16/21at 15:42; Start 02/16/21 at 14:15; Stop 02/16/21 at 14:16; Status DC Potassium Phosphate 15 mmol/ Sodium Chloride 105 ml @ 52.5 mls/hr 1X ONCE IV Last administered on 02/16/21at 15:43; Start 02/16/21 at 15:00; Stop 02/16/21 at 16:59; Status DC Sodium Chloride 90 meq/Potassium Chloride 50 meq/ Potassium Phosphate 20 mmol/ Magnesium Sulfate 10 meq/Calcium Gluconate 10 meq/ Multivitamins 10 ml/Zinc/Copper/ Manganese/ Selenium 1 ml/ Total Parenteral Nutrition/Amino Acids/Dextrose/ Fat Emulsion Intravenous 1,296 ml @ 54 mls/hr TPN CONT IV Last administered on 02/16/21at 21:24; Start 02/16/21 at 22:00; Stop 02/17/21 at 21:59 Sodium Phosphate 20 mmol/Sodium Chloride 256.6667 ml @ 64.167 m... 1X ONCE IV Last administered on 02/17/21at 10:55; Start 02/17/21 at 10:00; Stop 02/17/21 at 13:59 Sodium Chloride 90 meq/Sodium Phosphate 10 mmol/ Potassium Chloride 50 meq/ Potassium Phosphate 20 mmol/ Magnesium Sulfate 5 meq/ Multivitamins 10 ml/Zinc/Copper/ Manganese/ Selenium 1 ml/ Total Parenteral Nutrition/Amino Acids/Dextrose/ Fat Emulsion Intravenous 1,296 ml @ 54 mls/hr TPN CONT IV ; Start 02/17/21 at 22:00; Stop 02/17/21 at 09:07; Status DC Furosemide (Lasix) 40 mg 1X ONCE IVP Last administered on 02/17/21at 09:12; Start 02/17/21 at 09:15; Stop 02/17/21 at 09:16; Status DC Sodium Phosphate 20 mmol/Sodium Chloride 256.6667 ml @ 64.167 m... 1X ONCE IV ; Start 02/17/21 at 09:15; Stop 02/17/21 at 13:14; Status UNV Sodium Chloride 90 meq/Sodium Phosphate 10 mmol/ Potassium Chloride 50 meq/ Potassium Phosphate 20 mmol/ Magnesium Sulfate 5 meq/ Multivitamins 10 ml/Zinc/Copper/ Manganese/ Selenium 1 ml/ Total Parenteral Nutrition/Amino Acids/Dextrose/ Fat Emulsion Intravenous 1,080 ml @ 45 mls/hr TPN CONT IV ; Start 02/17/21 at 22:00; Stop 02/18/21 at 21:59 Morphine Sulfate (Morphine Sulfate) 1 mg 1X ONCE IVP Last administered on 02/17/21at 11:20; Start 02/17/21 at 11:15; Stop 02/17/21 at 11:16; Status DC Lorazepam (Ativan Inj) 1 mg PRN Q4HRS PRN IVP ANXIETY / AGITATION Last administered on 02/17/21at 11:41; Start 02/17/21 at 11:15 Active Scripts Active Reported Vitamin B12 (Cyanocobalamin (Vitamin B-12)) 2,500 Mcg Tablet 500 Mg PO BID Nexium Capsule (Esomeprazole Magnesium) 40 Mg Capsule. 1 Cap PO BID Calcium 600 + Vit D 800 Tab (Calcium Carbonate/Vitamin D3) 1 Each Tablet 1 Tab PO BID 30 Days Benefiber (Wheat Dextrin) 1 Each Powd.pack 1 Each PO DAILY Lisinopril 10 Mg Tablet 1 Tab PO DAILY Leflunomide 10 Mg Tablet 10 Mg PO DAILY Prednisone 2.5 Mg Tablet 5 Mg PO DAILY Metoprolol Tartrate 25 Mg Tablet 1 Tab PO DAILY Hydrocodone-Apap 5-325 (Hydrocodone Bit/Acetaminophen) 1 Tab Tablet 1 Tab PO PRN BID PRN Gabapentin 100 Mg Capsule 100 Mg PO PRN BID PRN Folic Acid 0.8 Mg Tablet 3 Mg PO DAILY Cymbalta (Duloxetine Hcl) 30 Mg Capsule. 1 Cap PO DAILY Prolia (Denosumab) 60 Mg/1 Ml Disp.syrin 1 Syr SQ [id number] 1 Days Celexa (Citalopram Hydrobromide) 10 Mg Tablet 1 Tab PO DAILY Alprazolam 0.25 Mg Tablet 0.25 Mg PO PRN DAILY PRN Vitals/I & O Vital Sign - Last 24 Hours 02/16/21 02/16/21 02/16/21 02/16/21 12:00 15:00 15:52 19:00 Temp 97.4 97.4 Pulse 84 93 93 Resp 21 22 19 B/P (MAP) 113/41 (65) 161/68 (99) 139/50 (79) Pulse Ox 93 94 94 93 O2 Delivery Nasal Cannula Nasal Cannula Nasal Cannula Nasal Cannula O2 Flow Rate 3.0 3.0 2.0 3.0 02/16/21 02/16/21 02/16/21 02/16/21 20:00 20:00 20:26 21:00 Temp 97.1 97.1 Pulse 91 95 Resp 23 17 B/P (MAP) 151/58 (89) 170/55 (93) Pulse Ox 91 94 95 O2 Delivery Nasal Cannula Nasal Cannula Nasal Cannula Nasal Cannula O2 Flow Rate 3.0 3.0 2.0 3.0 02/16/21 02/16/21 02/17/21 02/17/21 22:00 23:00 00:00 01:00 Temp 97.6 97.6 Pulse 91 94 95 95 Resp 17 24 17 20 B/P (MAP) 170/49 (89) 164/78 (106) 173/80 (111) 155/56 (89) Pulse Ox 91 94 95 95 O2 Delivery Nasal Cannula Nasal Cannula Nasal Cannula Nasal Cannula O2 Flow Rate 3.0 3.0 3.0 3.0 02/17/21 02/17/21 02/17/21 02/17/21 02:00 03:00 07:00 07:00 Temp 96.7 96.7 Pulse 93 94 88 Resp 14 15 18 B/P (MAP) 164/72 (102) 172/66 (101) 189/80 (116) Pulse Ox 93 94 95 O2 Delivery Nasal Cannula Nasal Cannula Nasal Cannula O2 Flow Rate 3.0 3.0 3.0 02/17/21 02/17/21 02/17/21 02/17/21 07:34 08:00 11:00 11:09 Temp 98.0 98.0 Pulse 90 90 Resp 17 B/P (MAP) 178/73 (108) 178/73 Pulse Ox 95 98 O2 Delivery Nasal Cannula Nasal Cannula Nasal Cannula O2 Flow Rate 3.0 3.0 3.0 02/17/21 02/17/21 11:19 11:20 Resp 22 Pulse Ox 98 O2 Delivery Nasal Cannula Nasal Cannula O2 Flow Rate 3.0 3.0 Intake and Output 02/16/21 02/16/21 02/17/21 15:00 23:00 07:00 Intake Total 0 ml 935.8 ml 120 ml Output Total 285 ml 580 ml 530 ml Balance -285 ml 355.8 ml -410 ml Justifications for Admission Other Justification RAO PATTON MD Feb 17, 2021 11:45
--- NOTE | 2021-02-17 11:47 | PDOC ---
Infectious Disease Note Subjective: Subjective pt resting says has postop site pain tolerating few sips of clears Vital Signs: Vital Signs Vital Signs Date Time Temp Pulse Resp B/P (MAP) Pulse Ox O2 Delivery O2 Flow Rate FiO2 02/17/21 11:20 22 98 Nasal Cannula 3.0 02/17/21 11:09 90 178/73 02/17/21 11:00 98.0 98.0 Physical Exam: PHYSICAL EXAM GENERAL: Alert, oriented x 3 female, lying in bed comfortably, in no acute distress. Appears tired HEENT: Normocephalic, atraumatic. Anicteric. Dry mouth NECK: Supple. No JVD. LUNGS: Rales present + for wheezing HEART: Irregularly irregular no murmurs appreciated ABDOMEN: Obese ,mildly distended, binder in place, not taken down, intact dry Hypoactive bowel sounds EXTREMITIES mild edema present, no cyanosis MUSCULOSKELETAL: No joint swelling. No decrease in range of motion. CENTRAL NERVOUS SYSTEM: Alert, oriented x 3, grossly nonfocal. Generalized weakness PSYCHIATRIC: Cooperative, calm. PIV looks clean Medications: Inpatient Meds: Medications reviewed. Labs: Lab Laboratory Tests Test 02/17/21 07:55 Sodium Level 135 mmol/L (136-145) Potassium Level 4.3 mmol/L (3.5-5.1) Chloride Level 103 mmol/L (98-107) Carbon Dioxide Level 19 mmol/L (21-32) Anion Gap 13 (6-14) Blood Urea Nitrogen 40 mg/dL (7-20) Creatinine 1.0 mg/dL (0.6-1.0) Estimated GFR (Cockcroft-Gault) 53.8 Glucose Level 206 mg/dL (70-99) Calcium Level 7.3 mg/dL (8.5-10.1) Phosphorus Level 1.8 mg/dL (2.6-4.7) Magnesium Level 2.7 mg/dL (1.8-2.4) Objective: Assessment: Status post large ventral hernia repair on February 12, 2021 Sepsis Leukocytosis Febrile illness Anemia A. fib with RVR CHF Renal insufficiency Rheumatoid arthritis Depression History of breast cancer Hypertension Plan: Plan of Care Cont cefepime to 2 g IV every 12hr, may need renal dosing Continue metronidazole and Zyvox Continue local wound care as directed Continue aspiration precaution PT and OT as tolerated D/W MELINDA WALLACE MD Feb 17, 2021 11:47
[2021-02-17] MEDS ORDERED: RACEPINEPHRINE 2.25% 0.5 ML NEBU. NEB ONE (14:15)
--- NOTE | 2021-02-17 14:25 | PDOC ---
PROGRESS NOTES Date of Service DATE: 02/17/21 TIME: 14:23 Subjective Subjective Patient seen and examined Objective Objective Vital Signs Date Time Temp Pulse Resp B/P (MAP) Pulse Ox O2 Delivery O2 Flow Rate FiO2 02/17/21 12:02 98 Nasal Cannula 3.0 02/17/21 11:20 22 02/17/21 11:09 90 178/73 02/17/21 11:00 98.0 98.0 Intake and Output 02/17/21 07:00 Intake Total 1055.8 ml Output Total 1395 ml Balance -339.2 ml Intake Oral 360 ml IV Total 695.8 ml Output Urine Total 1215 ml Drainage Total 180 ml Physical Exam Abdomen: Normal bowel sounds Heart: Regular rate General: mild distress Lungs: Other (Decreased breath sounds) Assessment Assessment 1. Status post ventricular hernia repair on February 12. Continue as per the surgical service. ID following. 2. Atrial fibrillation postop. Patient now has remained in a sinus rhythm overnight. We will continue present treatments and monitoring. 3. Respiratory failure with COPD. Patient has been seen by the pulmonary service. She is improved on present treatments. We will check an echocardiogra m to evaluate LV function and her mild murmur. Comment Review of Relevant I have reviewed the following items keely (where applicable) has been applied. Labs Laboratory Tests Test 02/15/21 20:09 02/15/21 22:13 02/16/21 07:40 02/17/21 07:55 O2 Saturation 93 % (92-99) Arterial Blood pH 7.39 (7.35-7.45) Arterial Blood pCO2 at Patient Temp 26 mmHg (35-46) Arterial Blood pO2 at Patient Temp 68 mmHg (65-108) Arterial Blood HCO3 15 mmol/L (21-28) Arterial Blood Base Excess -8 mmol/L (-3-3) FiO2 32 Glucose (Fingerstick) 99 mg/dL (70-99) White Blood Count 14.3 x10^3/uL (4.0-11.0) Red Blood Count 3.29 x10^6/uL (3.50-5.40) Hemoglobin 9.8 g/dL (12.0-15.5) Hematocrit 29.5 % (36.0-47.0) Mean Corpuscular Volume 90 fL (79-100) Mean Corpuscular Hemoglobin 30 pg (25-35) Mean Corpuscular Hemoglobin Concent 33 g/dL (31-37) Red Cell Distribution Width 15.3 % (11.5-14.5) Platelet Count 224 x10^3/uL (140-400) Neutrophils (%) (Auto) 80 % (31-73) Lymphocytes (%) (Auto) 8 % (24-48) Monocytes (%) (Auto) 12 % (0-9) Eosinophils (%) (Auto) 0 % (0-3) Basophils (%) (Auto) 0 % (0-3) Neutrophils # (Auto) 11.4 x10^3/uL (1.8-7.7) Lymphocytes # (Auto) 1.2 x10^3/uL (1.0-4.8) Monocytes # (Auto) 1.6 x10^3/uL (0.0-1.1) Eosinophils # (Auto) 0.0 x10^3/uL (0.0-0.7) Basophils # (Auto) 0.0 x10^3/uL (0.0-0.2) Sodium Level 132 mmol/L (136-145) 135 mmol/L (136-145) Potassium Level 3.5 mmol/L (3.5-5.1) 4.3 mmol/L (3.5-5.1) Chloride Level 100 mmol/L (98-107) 103 mmol/L (98-107) Carbon Dioxide Level 18 mmol/L (21-32) 19 mmol/L (21-32) Anion Gap 14 (6-14) 13 (6-14) Blood Urea Nitrogen 31 mg/dL (7-20) 40 mg/dL (7-20) Creatinine 0.8 mg/dL (0.6-1.0) 1.0 mg/dL (0.6-1.0) Estimated GFR (Cockcroft-Gault) 69.6 53.8 BUN/Creatinine Ratio 39 (6-20) Glucose Level 85 mg/dL (70-99) 206 mg/dL (70-99) Lactic Acid Level 1.2 mmol/L (0.4-2.0) Calcium Level 6.7 mg/dL (8.5-10.1) 7.3 mg/dL (8.5-10.1) Phosphorus Level 2.1 mg/dL (2.6-4.7) 1.8 mg/dL (2.6-4.7) Magnesium Level 2.1 mg/dL (1.8-2.4) 2.7 mg/dL (1.8-2.4) Total Bilirubin 0.6 mg/dL (0.2-1.0) Aspartate Amino Transf (AST/SGOT) 35 U/L (15-37) Alanine Aminotransferase (ALT/SGPT) 19 U/L (14-59) Alkaline Phosphatase 57 U/L (46-116) OT-Cdo-P-Type Natriuretic Peptide 6407 pg/mL (0-449) Total Protein 5.9 g/dL (6.4-8.2) Albumin 1.8 g/dL (3.4-5.0) Albumin/Globulin Ratio 0.4 (1.0-1.7) Laboratory Tests Test 02/17/21 07:55 Sodium Level 135 mmol/L (136-145) Potassium Level 4.3 mmol/L (3.5-5.1) Chloride Level 103 mmol/L (98-107) Carbon Dioxide Level 19 mmol/L (21-32) Anion Gap 13 (6-14) Blood Urea Nitrogen 40 mg/dL (7-20) Creatinine 1.0 mg/dL (0.6-1.0) Estimated GFR (Cockcroft-Gault) 53.8 Glucose Level 206 mg/dL (70-99) Calcium Level 7.3 mg/dL (8.5-10.1) Phosphorus Level 1.8 mg/dL (2.6-4.7) Magnesium Level 2.7 mg/dL (1.8-2.4) Medications Current Medications Fentanyl Citrate (Fentanyl 2ml Vial) 25 mcg PRN Q5MIN PRN IVP MILD PAIN 1-3 Last administered on 02/13/21at 18:23; Start 02/13/21 at 06:00; Stop 02/13/21 at 21:00; Status DC Fentanyl Citrate (Fentanyl 2ml Vial) 50 mcg PRN Q5MIN PRN IVP MODERATE PAIN 4-6 Last administered on 02/13/21at 17:53; Start 02/13/21 at 06:00; Stop 02/13/21 at 21:00; Status DC Morphine Sulfate (Morphine Sulfate) 1 mg PRN Q10MIN PRN IVP SEVERE PAIN 7-10; Start 02/13/21 at 06:00; Stop 02/13/21 at 21:00; Status DC Ringer's Solution 1,000 ml @ 30 mls/hr Q24H IV ; Start 02/13/21 at 06:00; Stop 02/13/21 at 18:00; Status DC Hydromorphone HCl (Dilaudid) 0.5 mg PRN Q10MIN PRN IVP SEVERE PAIN 7-10, 2nd CHOICE Last administered on 02/13/21at 18:18; Start 02/13/21 at 06:00; Stop 02/13/21 at 21:00; Status DC Prochlorperazine Edisylate (Compazine) 5 mg PACU PRN PRN IVP NAUSEA, MRX1; Start 02/13/21 at 06:00; Stop 02/13/21 at 21:00; Status DC Propofol (Diprivan) 200 mg STK-MED ONCE IV ; Start 02/13/21 at 09:36; Stop 02/13/21 at 09:36; Status DC Lidocaine HCl (Lidocaine Pf 2% Vial) 5 ml STK-MED ONCE .ROUTE ; Start 02/13/21 at 09:36; Stop 02/13/21 at 09:36; Status DC Dexamethasone Sodium Phosphate (Decadron) 4 mg STK-MED ONCE .ROUTE ; Start 02/13/21 at 09:36; Stop 02/13/21 at 09:36; Status DC Ondansetron HCl (Zofran) 4 mg STK-MED ONCE .ROUTE ; Start 02/13/21 at 09:36; Stop 02/13/21 at 09:36; Status DC Rocuronium [place] (Zemuron) 50 mg STK-MED ONCE .ROUTE ; Start 02/13/21 at 09:36; Stop 02/13/21 at 09:36; Status DC Succinylcholine Chloride (Anectine) 200 mg STK-MED ONCE .ROUTE ; Start 02/13/21 at 09:38; Stop 02/13/21 at 09:38; Status DC Cefazolin Sodium/ Dextrose 0 ml @ As Directed STK-MED ONCE IV ; Start 02/13/21 at 09:45; Stop 02/13/21 at 09:45; Status DC Cefazolin Sodium (Ancef) 1 gm 1X PREOP PRN IVP PRIOR TO PROCEDURE; Start 02/13/21 at 10:00; Stop 02/13/21 at 15:08; Status DC Fentanyl Citrate (Fentanyl 2ml Vial) 100 mcg STK-MED ONCE .ROUTE ; Start 02/13/21 at 12:53; Stop 02/13/21 at 12:53; Status DC Rocuronium [place] (Zemuron) 50 mg STK-MED ONCE .ROUTE ; Start 02/13/21 at 13:53; Stop 02/13/21 at 13:54; Status DC Fentanyl Citrate (Fentanyl 2ml Vial) 100 mcg STK-MED ONCE .ROUTE ; Start 02/13 at 09:38; Stop 02/13/21 at 15:05; Status DC Hydromorphone HCl (Dilaudid) 2 mg STK-MED ONCE .ROUTE ; Start 02/13/21 at 15:42; Stop 02/13/21 at 15:43; Status DC Glycopyrrolate (Robinul) 1 mg STK-MED ONCE .ROUTE ; Start 02/13/21 at 16:33; Stop 02/13/21 at 16:33; Status DC Neostigmine [place] (Neostigmine Methylsulfate) 5 mg STK-MED ONCE .ROUTE ; Start 02/13/21 at 16:33; Stop 02/13/21 at 16:33; Status DC Enoxaparin Sodium (Lovenox 40mg Syringe) 40 mg Q24H SQ Last administered on 02/16/21at 21:25; Start 02/13/21 at 18:00 Sodium Chloride (Normal Saline Flush) 3 ml QSHIFT PRN IV AFTER MEDS AND BLOOD DRAWS; Start 02/13/21 at 17:15 Sodium Chloride 1,000 ml @ 100 mls/hr Q10H IV Last administered on 02/15/21at 13:11; Start 02/13/21 at 17:15; Stop 02/17/21 at 11:03; Status DC Naloxone HCl (Narcan) 0.4 mg PRN Q2MIN PRN IV SEE INSTRUCTIONS; Start 02/13/21 at 17:15 Sodium Chloride 1,000 ml @ 25 mls/hr Q24H IV Last administered on 02/16/21at 09:00; Start 02/13/21 at 17:15 Hydromorphone HCl 30 ml @ 0 mls/hr CONT PRN PRN IV PER PROTOCOL Last administered on 02/13/21at 23:54; Start 02/13/21 at 17:15 Ondansetron HCl (Zofran) 4 mg PRN Q6HRS PRN IVP NAUESA, 1ST CHOICE Last administered on 02/17/21at 07:01; Start 02/13/21 at 17:15 Hydromorphone HCl (Dilaudid) 2 mg STK-MED ONCE .ROUTE ; Start 02/13/21 at 17:45; Stop 02/13/21 at 17:45; Status DC Fentanyl Citrate (Fentanyl 2ml Vial) 100 mcg STK-MED ONCE .ROUTE ; Start 02/13/21 at 17:45; Stop 02/13/21 at 17:46; Status DC Ketorolac Tromethamine (Toradol 15mg Vial) 15 mg 1X ONCE IVP Last administered on 02/14/21at 09:33; Start 02/14/21 at 09:15; Stop 02/14/21 at 09:19; Status DC Info (FLU VACCINE SCREEN per RX) 1 each PRN DAILY PRN MC SEE COMMENTS; Start 02/14/21 at 23:30; Status Cancel Metoprolol Tartrate (Lopressor Vial) 5 mg PRN Q5MIN PRN IVP TACHYCARDIA Last administered on 02/17/21at 11:09; Start 02/15/21 at 20:15 Acetaminophen (Tylenol) 1,000 mg 1X ONCE PO Last administered on 02/15/21at 20:24; Start 02/15/21 at 20:15; Stop 02/15/21 at 20:16; Status DC Sodium Chloride 500 ml @ 500 mls/hr 1X ONCE IV ; Start 02/15/21 at 21:30; Stop 02/15/21 at 22:29; Status DC Ipratropium [place] (Atrovent) 0.5 mg 1X ONCE NEB ; Start 02/15/21 at 22:00; Stop 02/15/21 at 22:01; Status DC Ipratropium [place] (Atrovent) 0.5 mg RTQID NEB Last administered on 02/17/21at 11:19; Start 02/16/21 at 08:00 Vancomycin HCl (Vanco Per Pharmacy) 1 each PRN DAILY PRN MC SEE COMMENTS Last administered on 02/16/21at 03:40; Start 02/15/21 at 21:30; Stop 02/16/21 at 11:17; Status DC Cefepime HCl (Maxipime) 1 gm Q24H IVP Last administered on 02/15/21at 23:10; Start 02/15/21 at 22:00; Stop 02/16/21 at 11:18; Status DC Metronidazole 100 ml @ 100 mls/hr Q12HR IV Last administered on 02/17/21at 09:01; Start 02/15/21 at 22:00 Diltiazem HCl 125 mg/Sodium Chloride 125 ml @ 5 mls/hr CONT PRN IV SEE I/O RECORD Last administered on 02/16/21at 23:06; Start 02/15/21 at 21:30 Vancomycin HCl 1.75 gm/Sodium Chloride 500 ml @ 250 mls/hr 1X ONCE IV Last administered on 02/15/21at 23:00; Start 02/15/21 at 22:00; Stop 02/15/21 at 23:59; Status DC Methylprednisolone Sodium Succinate (SOLU-Medrol 40MG VIAL) 30 mg DAILY IV Last administered on 02/17/21at 09:10; Start 02/16/21 at 09:00 Vancomycin HCl 1 gm/Sodium Chloride 250 ml @ 250 mls/hr Q24H IV ; Start 02/16/21 at 23:00; Stop 02/16/21 at 11:16; Status DC Vancomycin HCl (Vancomycin Trough Level) 1 each 1X ONCE MC ; Start 02/17/21 at 22:30; Stop 02/16/21 at 11:17; Status DC Cefepime HCl (Maxipime) 2 gm Q12HR IVP Last administered on 02/17/21at 09:10; Start 02/16/21 at 12:00 Linezolid/Dextrose 300 ml @ 300 mls/hr Q12HR IV Last administered on 02/17/21 09:01; Start 02/16/21 at 12:00 Info (Tpn Per Pharmacy) 1 each PRN DAILY PRN MC SEE COMMENTS Last administered on 02/17/21at 09:18; Start 02/16/21 at 14:00 Furosemide (Lasix) 20 mg 1X ONCE IVP Last administered on 02/16/21at 15:42; Start 02/16/21 at 14:15; Stop 02/16/21 at 14:16; Status DC Potassium Phosphate 15 mmol/ Sodium Chloride 105 ml @ 52.5 mls/hr 1X ONCE IV Last administered on 02/16/21at 15:43; Start 02/16/21 at 15:00; Stop 02/16/21 at 16:59; Status DC Sodium Chloride 90 meq/Potassium Chloride 50 meq/ Potassium Phosphate 20 mmol/ Magnesium Sulfate 10 meq/Calcium Gluconate 10 meq/ Multivitamins 10 ml/Zinc/Copper/ Manganese/ Selenium 1 ml/ Total Parenteral Nutrition/Amino Acids/Dextrose/ Fat Emulsion Intravenous 1,296 ml @ 54 mls/hr TPN CONT IV Last administered on 02/16/21at 21:24; Start 02/16/21 at 22:00; Stop 02/17/21 at 21:59 Sodium Phosphate 20 mmol/Sodium Chloride 256.6667 ml @ 64.167 m... 1X ONCE IV Last administered on 02/17/21at 10:55; Start 02/17/21 at 10:00; Stop 02/17/21 at 13:59; Status DC Sodium Chloride 90 meq/Sodium Phosphate 10 mmol/ Potassium Chloride 50 meq/ Potassium Phosphate 20 mmol/ Magnesium Sulfate 5 meq/ Multivitamins 10 ml/Zinc/Copper/ Manganese/ Selenium 1 ml/ Total Parenteral Nutrition/Amino Acids/Dextrose/ Fat Emulsion Intravenous 1,296 ml @ 54 mls/hr TPN CONT IV ; Start 02/17/21 at 22:00; Stop 02/17/21 at 09:07; Status DC Furosemide (Lasix) 40 mg 1X ONCE IVP Last administered on 02/17/21at 09:12; Start 02/17/21 at 09:15; Stop 02/17/21 at 09:16; Status DC Sodium Phosphate 20 mmol/Sodium Chloride 256.6667 ml @ 64.167 m... 1X ONCE IV ; Start 02/17/21 at 09:15; Stop 02/17/21 at 13:14; Status UNV Sodium Chloride 90 meq/Sodium Phosphate 10 mmol/ Potassium Chloride 50 meq/ Potassium Phosphate 20 mmol/ Magnesium Sulfate 5 meq/ Multivitamins 10 ml/Zinc/Copper/ Manganese/ Selenium 1 ml/ Total Parenteral Nutrition/Amino Acids/Dextrose/ Fat Emulsion Intravenous 1,080 ml @ 45 mls/hr TPN CONT IV ; Start 02/17/21 at 22:00; Stop 02/18/21 at 21:59 Morphine Sulfate (Morphine Sulfate) 1 mg 1X ONCE IVP Last administered on 02/17/21at 11:20; Start 02/17/21 at 11:15; Stop 02/17/21 at 11:16; Status DC Lorazepam (Ativan Inj) 1 mg PRN Q4HRS PRN IVP ANXIETY / AGITATION Last administered on 02/17/21at 11:41; Start 02/17/21 at 11:15 Epinephrine (S2 Racepinephrine) 0.5 ml 1X ONCE NEB ; Start 02/17/21 at 14:15; Stop 02/17/21 at 14:16; Status DC Active Scripts Active Reported Vitamin B12 (Cyanocobalamin (Vitamin B-12)) 2,500 Mcg Tablet 500 Mg PO BID Nexium Capsule (Esomeprazole Magnesium) 40 Mg Capsule. 1 Cap PO BID Calcium 600 + Vit D 800 Tab (Calcium Carbonate/Vitamin D3) 1 Each Tablet 1 Tab PO BID 30 Days Benefiber (Wheat Dextrin) 1 Each Powd.pack 1 Each PO DAILY Lisinopril 10 Mg Tablet 1 Tab PO DAILY Leflunomide 10 Mg Tablet 10 Mg PO DAILY Prednisone 2.5 Mg Tablet 5 Mg PO DAILY Metoprolol Tartrate 25 Mg Tablet 1 Tab PO DAILY Hydrocodone-Apap 5-325 (Hydrocodone Bit/Acetaminophen) 1 Tab Tablet 1 Tab PO PRN BID PRN Gabapentin 100 Mg Capsule 100 Mg PO PRN BID PRN Folic Acid 0.8 Mg Tablet 3 Mg PO DAILY Cymbalta (Duloxetine Hcl) 30 Mg Capsule. 1 Cap PO DAILY Prolia (Denosumab) 60 Mg/1 Ml Disp.syrin 1 Syr SQ [id number] 1 Days Celexa (Citalopram Hydrobromide) 10 Mg Tablet 1 Tab PO DAILY Alprazolam 0.25 Mg Tablet 0.25 Mg PO PRN DAILY PRN Vitals/I & O Vital Sign - Last 24 Hours 02/16/21 02/16/21 02/16/21 02/16/21 15:00 15:52 19:00 20:00 Temp 97.1 97.1 Pulse 93 93 91 Resp 22 19 23 B/P (MAP) 161/68 (99) 139/50 (79) 151/58 (89) Pulse Ox 94 94 93 91 O2 Delivery Nasal Cannula Nasal Cannula Nasal Cannula Nasal Cannula O2 Flow Rate 3.0 2.0 3.0 3.0 02/16/21 02/16/21 02/16/21 02/16/21 20:00 20:26 21:00 22:00 Pulse 95 91 Resp 17 17 B/P (MAP) 170/55 (93) 170/49 (89) Pulse Ox 94 95 91 O2 Delivery Nasal Cannula Nasal Cannula Nasal Cannula Nasal Cannula O2 Flow Rate 3.0 2.0 3.0 3.0 02/16/21 02/17/21 02/17/21 02/17/21 23:00 00:00 01:00 02:00 Temp 97.6 97.6 Pulse 94 95 95 93 Resp 24 17 20 14 B/P (MAP) 164/78 (106) 173/80 (111) 155/56 (89) 164/72 (102) Pulse Ox 94 95 95 93 O2 Delivery Nasal Cannula Nasal Cannula Nasal Cannula Nasal Cannula O2 Flow Rate 3.0 3.0 3.0 3.0 02/17/21 02/17/21 02/17/21 02/17/21 03:00 07:00 07:00 07:34 Temp 96.7 96.7 Pulse 94 88 Resp 15 18 B/P (MAP) 172/66 (101) 189/80 (116) Pulse Ox 94 95 95 O2 Delivery Nasal Cannula Nasal Cannula Nasal Cannula O2 Flow Rate 3.0 3.0 3.0 02/17/21 02/17/21 02/17/21 02/17/21 08:00 11:00 11:09 11:19 Temp 98.0 98.0 Pulse 90 90 Resp 17 B/P (MAP) 178/73 (108) 178/73 Pulse Ox 98 O2 Delivery Nasal Cannula Nasal Cannula Nasal Cannula O2 Flow Rate 3.0 3.0 3.0 02/17/21 02/17/21 11:20 12:02 Resp 22 Pulse Ox 98 98 O2 Delivery Nasal Cannula Nasal Cannula O2 Flow Rate 3.0 3.0 Intake and Output 02/16/21 02/16/21 02/17/21 15:00 23:00 07:00 Intake Total 0 ml 935.8 ml 120 ml Output Total 285 ml 580 ml 530 ml Balance -285 ml 355.8 ml -410 ml Justifications for Admission Other Justification MCSWEYN,GENIA J MD Feb 17, 2021 14:25
[2021-02-17] MEDS: ENOXAPARIN 40 MG/0.4 ML SYRINGE. SQ SCH (18:35)
[2021-02-17] MEDS: IV NORMAL SALINE 1000ML BAG 1,000 ML IV SCH (21:12)
[2021-02-17] MEDS ORDERED: [UNRECOGNIZED DRUG - OTHER] IV SCH (22:00)
[2021-02-17] MEDS ORDERED: DEXTROSE 70% IV SCH ×2 (22:00)
[2021-02-17] MEDS ORDERED: TOTAL PARENTERAL NUTRITION IV SCH ×2 (22:00)
[2021-02-17] MEDS ORDERED: AMINO ACID IV SCH ×2 (22:00)
[2021-02-17] MEDS ORDERED: [UNRECOGNIZED DRUG - OTHER] IV SCH (22:00)
[2021-02-18 03:00] VITALS: BP 166/59
--- NOTE | 2021-02-18 06:44 | PDOC ---
PULMONARY PROGRESS NOTES DATE: 02/18/21 TIME: 06:41 Subjective on 02 3 lpm has audible wheezing tachypneac on cardizem gtt converted to nsr thism am on tpn Vitals Vital Signs Date Time Temp Pulse Resp B/P (MAP) Pulse Ox O2 Delivery O2 Flow Rate FiO2 02/18/21 03:00 74 25 166/59 (94) 95 Nasal Cannula 3.0 02/17/21 23:00 97.8 97.8 Comments ros as mentioned above other sys otherwise neg General: Alert, Moderate Distress HEENT: Other (nc at perrl nose throat clear neck no lad no thyromegaly) Lungs: Wheezing, Crackles Cardiovascular: Other (irreg irreg ) Abdomen: Soft Neuro Exam: Alert Skin: Warm Labs Laboratory Tests Test 02/16/21 07:40 02/17/21 07:55 White Blood Count 14.3 x10^3/uL (4.0-11.0) Red Blood Count 3.29 x10^6/uL (3.50-5.40) Hemoglobin 9.8 g/dL (12.0-15.5) Hematocrit 29.5 % (36.0-47.0) Mean Corpuscular Volume 90 fL (79-100) Mean Corpuscular Hemoglobin 30 pg (25-35) Mean Corpuscular Hemoglobin Concent 33 g/dL (31-37) Red Cell Distribution Width 15.3 % (11.5-14.5) Platelet Count 224 x10^3/uL (140-400) Neutrophils (%) (Auto) 80 % (31-73) Lymphocytes (%) (Auto) 8 % (24-48) Monocytes (%) (Auto) 12 % (0-9) Eosinophils (%) (Auto) 0 % (0-3) Basophils (%) (Auto) 0 % (0-3) Neutrophils # (Auto) 11.4 x10^3/uL (1.8-7.7) Lymphocytes # (Auto) 1.2 x10^3/uL (1.0-4.8) Monocytes # (Auto) 1.6 x10^3/uL (0.0-1.1) Eosinophils # (Auto) 0.0 x10^3/uL (0.0-0.7) Basophils # (Auto) 0.0 x10^3/uL (0.0-0.2) Sodium Level 132 mmol/L (136-145) 135 mmol/L (136-145) Potassium Level 3.5 mmol/L (3.5-5.1) 4.3 mmol/L (3.5-5.1) Chloride Level 100 mmol/L (98-107) 103 mmol/L (98-107) Carbon Dioxide Level 18 mmol/L (21-32) 19 mmol/L (21-32) Anion Gap 14 (6-14) 13 (6-14) Blood Urea Nitrogen 31 mg/dL (7-20) 40 mg/dL (7-20) Creatinine 0.8 mg/dL (0.6-1.0) 1.0 mg/dL (0.6-1.0) Estimated GFR (Cockcroft-Gault) 69.6 53.8 BUN/Creatinine Ratio 39 (6-20) Glucose Level 85 mg/dL (70-99) 206 mg/dL (70-99) Lactic Acid Level 1.2 mmol/L (0.4-2.0) Calcium Level 6.7 mg/dL (8.5-10.1) 7.3 mg/dL (8.5-10.1) Phosphorus Level 2.1 mg/dL (2.6-4.7) 1.8 mg/dL (2.6-4.7) Magnesium Level 2.1 mg/dL (1.8-2.4) 2.7 mg/dL (1.8-2.4) Total Bilirubin 0.6 mg/dL (0.2-1.0) Aspartate Amino Transf (AST/SGOT) 35 U/L (15-37) Alanine Aminotransferase (ALT/SGPT) 19 U/L (14-59) Alkaline Phosphatase 57 U/L (46-116) JZ-Exe-N-Type Natriuretic Peptide 6407 pg/mL (0-449) Total Protein 5.9 g/dL (6.4-8.2) Albumin 1.8 g/dL (3.4-5.0) Albumin/Globulin Ratio 0.4 (1.0-1.7) Laboratory Tests Test 02/17/21 07:55 Sodium Level 135 mmol/L (136-145) Potassium Level 4.3 mmol/L (3.5-5.1) Chloride Level 103 mmol/L (98-107) Carbon Dioxide Level 19 mmol/L (21-32) Anion Gap 13 (6-14) Blood Urea Nitrogen 40 mg/dL (7-20) Creatinine 1.0 mg/dL (0.6-1.0) Estimated GFR (Cockcroft-Gault) 53.8 Glucose Level 206 mg/dL (70-99) Calcium Level 7.3 mg/dL (8.5-10.1) Phosphorus Level 1.8 mg/dL (2.6-4.7) Magnesium Level 2.7 mg/dL (1.8-2.4) Medications Active Scripts Medications Dose Route/Sig Max Daily Dose Days Date Category Vitamin B12 (Cyanocobalamin (Vitamin B-12)) 2,500 Mcg Tablet 500 Mg PO BID 02/15/21 Reported Nexium Capsule (Esomeprazole Magnesium) 40 Mg Capsule.dr Ruiz Cap PO BID 02/15/21 Reported Calcium 600 + Vit D 800 Tab (Calcium Carbonate/Vitamin D3) 1 Each Tablet 1 Tab PO BID 30 02/15/21 Reported Benefiber (Wheat Dextrin) 1 Each Powd.pack 1 Each PO DAILY 02/15/21 Reported Lisinopril 10 Mg Tablet 1 Tab PO DAILY 02/15/21 Reported Leflunomide 10 Mg Tablet 10 Mg PO DAILY 02/15/21 Reported Prednisone 2.5 Mg Tablet 5 Mg PO DAILY 02/15/21 Reported Metoprolol Tartrate 25 Mg Tablet 1 Tab PO DAILY 02/15/21 Reported Hydrocodone-Apap 5-325 (Hydrocodone Bit/Acetaminophen) 1 Tab Tablet 1 Tab PO PRN BID PRN 02/15/21 Reported Gabapentin 100 Mg Capsule 100 Mg PO PRN BID PRN 02/15/21 Reported Folic Acid 0.8 Mg Tablet 3 Mg PO DAILY 02/15/21 Reported Cymbalta (Duloxetine Hcl) 30 Mg Capsule.dr Ruiz Cap PO DAILY 02/15/21 Reported Prolia (Denosumab) 60 Mg/1 Ml Disp.syrin 1 Syr SQ [id number] 1 02/15/21 Reported Celexa (Citalopram Hydrobromide) 10 Mg Tablet 1 Tab PO DAILY 02/15/21 Reported Alprazolam 0.25 Mg Tablet 0.25 Mg PO PRN DAILY PRN 02/15/21 Reported Comments cxr 02/17 reviewed Bilateral interstitial opacities and low lung volumes are unchanged. Impression . IMPRESSION: 1. Acute hypoxemic respiratory failure, multifactorial. 2. Abnormal x-ray, compatible with effusion, possibly congestive heart failure. Possible pneumonia. 3. afib w rvr now rate controlled 4. Leukocytosis. 5. Fever. 6. Status post large ventral hernia repair on 02/13. 7. Rheumatoid arthritis with previously diagnosed as interstitial lung disease. 8. Hypertension. 9. Breast cancer, status post radiation. 10. Tobacco dependence, in remission. 11. Chronic obstructive pulmonary disease, unknown FEV1 w ae bronchospasm Plan . PLAN: 1. wheezing suspect a combination of chf and copd w ae/bronchospasm lasix 20 mg iv now solumedrol 125 mg now add duo neb prn add ics start solumedrol 40 mg iv q 12 titrate fio2 to keep sat 92% start bipap prn and qhs obese suspect has fernando 2. Empiric antibiotics. zyvox cefepime 3. Chest x-ray reviewed, CHF. follow Cardiology rec 4. on cardizem gtt afib rate controlled 5. Diurese monitor k cr 6. start IS 7. change solumedrol to 40 daily 8. BD atrovent only avoid albuterol 9. lovenox for dvt prophylaxis discussed w rn critically ill cct 30 no overlap JAYLYN MAZA MD Feb 18, 2021 06:44
[2021-02-18 07:00] VITALS: BP 185/65
[2021-02-18] MEDS ORDERED: FUROSEMIDE 20 MG/2 ML VIAL. IVP ONE (07:00)
[2021-02-18] MEDS ORDERED: methylPREDNISolone SOD SUCC PF 125 MG/2 ML VIAL. IV ONE (07:00)
[2021-02-18] MEDS: IPRATROPIUM BROMIDE 0.5 MG/2.5 ML NEBU. NEB SCH ×4 (07:55→20:00)
[2021-02-18 08:05] LABS: CALCIUM 7.3 mg/dL (8.5-10.1); GFR 53.8; MAGNESIUM 2.9 mg/dL (1.8-2.4); PHOSPHORUS 2.4 mg/dL (2.6-4.7); POTASSIUM 4.8 mmol/L (3.5-5.1)
[2021-02-18] MEDS: CEFEPIME HCL IV Push 2 GM VIAL. IVP SCH ×2 (08:09→21:38)
[2021-02-18] MEDS: HYDROmorphone 12mg/30ml PCA 30 ML IV PRN (08:16)
[2021-02-18] MEDS: methylPREDNISolone SOD SUCC PF 40 MG/ML VIAL. IV SCH ×2 (09:00→21:32)
[2021-02-18] MEDS ORDERED: SODIUM PHOSPHATE 15 MMOL in IV NS 100 ML IV ONE (10:00)
[2021-02-18] MEDS: TPN PER PHARMACY MC PRN (10:17)
--- NOTE | 2021-02-18 10:17 | NUR ---
Pharmacy TPN Dosing Note S: LYNDSEY JOSUE is a 75 year old F Currently receiving Central Continuous TPN started 02/16/21 B:Pertinent PMH: NPO s/p hernia repair Height: 4 feet, 9 inches Weight: 74.2 kg Current diet: npo LABS: Sodium: 138 Potassium: 4.8 Chloride: 108 Calcium: 7.3 Corrected Calcium: 9.06 Magnesium: 2.9 CO2: 20 SCr: 1 Glucose: 265 Albumin: 1.8 AST: 35 ALT: 19 TPN FORMULA: TPN TYPE: Central Continuous AMINO ACIDS: 60 gm DEXTROSE: 195 gm LIPIDS: 20 gm SODIUM ACETATE: 90 mEq SODIUM PHOSPHATE: 20 mmol POTASSIUM CHLORIDE: 30 mEq POTASSIUM PHOSPHATE: 20 mmol MULTIPLE VITAMIN: 10 ml TRACE ELEMENTS: 1 ml TPN PLAN: -Serum phos low, trending up. Give NaPhos 15 mmol bolus, increase NaPhos to 20 mmol/day in TPN. -Serum potassium trending up, reduce KCl to 30 mEq/day. -Serum chloride elevated, change NaCl to NaPhos. -Serum mag elevated, remove mag sulfate from TPN. -Blood glucose values elevated, will contact MD for insulin orders. -CMP, mag, phos, TG tomorrow. R: Continue TPN @ current rate and with above changes. Will monitor electrolytes, glucose, and tolerance to TPN. [facility], 02/18/21 [id number]
--- NOTE | 2021-02-18 10:59 | PDOC ---
[employer] PROGRESS NOTE Date of Service DOS: DATE: 02/18/21 TIME: 10:57 Chief Complaint Chief Complaint Abdominal pain History of Present Illness History of Present Illness This patient was sent here for a ventral hernia repair which he underwent on February 13. Patient under the care of general surgery team. Patient had done really well after surgery initially she was actually planning to start trialing liquids yesterday however she had some worsening in her overall status concerning for sepsis. She was hypotensive and tachycardic up to the 160s. Her work-up showed A. fib with RVR requiring a Cardizem drip. Was evaluated by Dr. Caro who was concerned about her status recommending ICU transfer. Infectious Disease and pulmonary were consulted. Patient started on broad-spectrum antibiotics. Pulmonary following. 02/16 Patient evaluated in the ICU today. Her condition has significantly improved since last night. She is awake alert and oriented able to answer questions says pain is under control. Blood pressure holding steady. Remains on Cardizem drip. Continue antibiotics today. Suspect she can transfer out of ICU if beds are needed. Requesting to drink if she can, will defer this decision to surgery. 02/17 Patient evaluated at bedside. She is complaining about some shortness of breath but is feeling comfortable. Vitals look normal. at bedside is very concerned and tried to reassure him. Continue current plan. We will try 1 dose of Lasix today based upon chest x-ray. 02/18 Evaluated at bedside. Patient resting in bed. Appears to be in normal sinus rhythm. No major clinical changes otherwise. Vitals/I&O Vitals/I&O: Vital Signs Date Time Temp Pulse Resp B/P (MAP) Pulse Ox O2 Delivery O2 Flow Rate FiO2 02/18/21 09:20 16 99 Nasal Cannula 3.0 02/18/21 07:00 75 185/65 (105) 02/17/21 23:00 97.8 97.8 I & O 02/17/21 02/17/21 02/18/21 15:00 23:00 07:00 Intake Total 400 ml 200 ml 50 ml Output Total 745 ml 590 ml 305 ml Balance -345 ml -390 ml -255 ml Physical Exam Physical Exam: GENERAL: Alert, oriented x 3 female, lying in bed comfortably, in no acute distress. Appears tired HEENT: Normocephalic, atraumatic. Anicteric. Dry mouth NECK: Supple. No JVD. LUNGS: Rales present + for wheezing HEART: Irregularly irregular no murmurs appreciated ABDOMEN: Obese ,mildly distended, binder in place, not taken down, intact dry Hypoactive bowel sounds EXTREMITIES mild edema present, no cyanosis MUSCULOSKELETAL: No joint swelling. No decrease in range of motion. CENTRAL NERVOUS SYSTEM: Alert, oriented x 3, grossly nonfocal. Generalized weakness PSYCHIATRIC: Cooperative, calm. PIV looks clean General: mild distress Heart: Regular rate Lungs: Wheezing, Crackles Abdomen: Normal bowel sounds Extremities: No edema, Normal pulses Skin: No significant lesion Labs Labs: Laboratory Tests Test 02/18/21 07:15 Sodium Level 138 mmol/L (136-145) Potassium Level 4.8 mmol/L (3.5-5.1) Chloride Level 108 mmol/L (98-107) Carbon Dioxide Level 20 mmol/L (21-32) Anion Gap 10 (6-14) Blood Urea Nitrogen 47 mg/dL (7-20) Creatinine 1.0 mg/dL (0.6-1.0) Estimated GFR (Cockcroft-Gault) 53.8 Glucose Level 265 mg/dL (70-99) Calcium Level 7.3 mg/dL (8.5-10.1) Phosphorus Level 2.4 mg/dL (2.6-4.7) Magnesium Level 2.9 mg/dL (1.8-2.4) Assessment and Plan Assessmemt and Plan Assessmemt and Plan Sepsis status post large ventral hernia repair on 02/13, acute hypoxic respiratory failure, interstitial lung disease, possible CHF -Continue antibiotics per infectious disease -Pulmonary following -General surgery primary team -cardiology consulted Comment Review of Relevant I have reviewed the following items keely (where applicable) has been applied. Medications: Current Medications Medications (Trade) Dose Ordered Sig/Isael Route PRN Reason Start Time Stop Time Status Last Admin Dose Admin Sodium Chloride 90 meq/Sodium Phosphate 10 mmol/ Potassium Chloride 50 meq/ Potassium Phosphate 20 mmol/ Magnesium Sulfate 5 meq/ Multivitamins 10 ml/Zinc/Copper/ Manganese/ Selenium 1 ml/ Total Parenteral Nutrition/Amino Acids/Dextrose/ Fat Emulsion Intravenous 1,080 ml @ 45 mls/hr TPN CONT IV 02/17/21 22:00 02/18/21 21:59 02/17/21 21:12 Morphine Sulfate (Morphine Sulfate) 1 mg 1X ONCE IVP 02/17/21 11:15 02/17/21 11:16 DC 02/17/21 11:20 Lorazepam (Ativan Inj) 1 mg PRN Q4HRS PRN IVP ANXIETY / AGITATION 02/17/21 11:15 02/18/21 08:07 Epinephrine (S2 Racepinephrine) 0.5 ml 1X ONCE NEB 02/17/21 14:15 02/17/21 14:16 DC 02/17/21 15:29 Furosemide (Lasix) 20 mg 1X ONCE IVP 02/18/21 07:00 02/18/21 07:01 DC 02/18/21 07:09 Methylprednisolone Sodium Succinate (SOLU-Medrol 125MG VIAL) 125 mg 1X ONCE IV 02/18/21 07:00 02/18/21 07:01 DC 02/18/21 08:07 Methylprednisolone Sodium Succinate (SOLU-Medrol 40MG VIAL) 40 mg Q12HR IV 02/18/21 09:00 02/18/21 09:00 Sodium Phosphate 15 mmol/Sodium Chloride 105 ml @ 105 mls/hr 1X ONCE IV 02/18/21 10:00 02/18/21 10:59 02/18/21 09:20 Justifications for Admission Other Justification BENY HUGGINS MD Feb 18, 2021 10:59
[2021-02-18 11:00] VITALS: BP 159/63
[2021-02-18] MEDS ORDERED: BUDESONIDE 0.5 MG/2 ML NEBU. NEB ONE (11:15)
--- NOTE | 2021-02-18 11:49 | PDOC ---
PROGRESS NOTES Date of Service DATE: 02/18/21 TIME: 11:47 Subjective Subjective Patient seen and examined Objective Objective Vital Signs Date Time Temp Pulse Resp B/P (MAP) Pulse Ox O2 Delivery O2 Flow Rate FiO2 02/18/21 11:39 95 Nasal Cannula 4.0 02/18/21 11:00 97.5 65 10 159/63 (95) 97.5 Intake and Output 02/18/21 07:00 Intake Total 650 ml Output Total 1640 ml Balance -990 ml Intake Oral 250 ml IV Total 400 ml Output Urine Total 1500 ml Drainage Total 140 ml Physical Exam Abdomen: Normal bowel sounds Heart: Regular rate General: mild distress Lungs: Other (Mildly decreased breath sounds) Assessment Assessment 1. Status post ventricular hernia repair on February 12. Continue as per the surgical service. ID following. 2. Atrial fibrillation postop. Patient has now remained in a sinus rhythm. We will continue present medications and monitoring. 3. Respiratory failure with COPD. Patient is followed by the pulmonary service . Mildly improved today. Continue present treatment. Echo pending. Comment Review of Relevant I have reviewed the following items keely (where applicable) has been applied. Labs Laboratory Tests Test 02/17/21 07:55 02/18/21 07:15 Sodium Level 135 mmol/L (136-145) 138 mmol/L (136-145) Potassium Level 4.3 mmol/L (3.5-5.1) 4.8 mmol/L (3.5-5.1) Chloride Level 103 mmol/L (98-107) 108 mmol/L (98-107) Carbon Dioxide Level 19 mmol/L (21-32) 20 mmol/L (21-32) Anion Gap 13 (6-14) 10 (6-14) Blood Urea Nitrogen 40 mg/dL (7-20) 47 mg/dL (7-20) Creatinine 1.0 mg/dL (0.6-1.0) 1.0 mg/dL (0.6-1.0) Estimated GFR (Cockcroft-Gault) 53.8 53.8 Glucose Level 206 mg/dL (70-99) 265 mg/dL (70-99) Calcium Level 7.3 mg/dL (8.5-10.1) 7.3 mg/dL (8.5-10.1) Phosphorus Level 1.8 mg/dL (2.6-4.7) 2.4 mg/dL (2.6-4.7) Magnesium Level 2.7 mg/dL (1.8-2.4) 2.9 mg/dL (1.8-2.4) Laboratory Tests Test 02/18/21 07:15 Sodium Level 138 mmol/L (136-145) Potassium Level 4.8 mmol/L (3.5-5.1) Chloride Level 108 mmol/L (98-107) Carbon Dioxide Level 20 mmol/L (21-32) Anion Gap 10 (6-14) Blood Urea Nitrogen 47 mg/dL (7-20) Creatinine 1.0 mg/dL (0.6-1.0) Estimated GFR (Cockcroft-Gault) 53.8 Glucose Level 265 mg/dL (70-99) Calcium Level 7.3 mg/dL (8.5-10.1) Phosphorus Level 2.4 mg/dL (2.6-4.7) Magnesium Level 2.9 mg/dL (1.8-2.4) Medications Current Medications Fentanyl Citrate (Fentanyl 2ml Vial) 25 mcg PRN Q5MIN PRN IVP MILD PAIN 1-3 Last administered on 02/13/21at 18:23; Start 02/13/21 at 06:00; Stop 02/13/21 at 21:00; Status DC Fentanyl Citrate (Fentanyl 2ml Vial) 50 mcg PRN Q5MIN PRN IVP MODERATE PAIN 4-6 Last administered on 02/13/21at 17:53; Start 02/13/21 at 06:00; Stop 02/13/21 at 21:00; Status DC Morphine Sulfate (Morphine Sulfate) 1 mg PRN Q10MIN PRN IVP SEVERE PAIN 7-10; Start 02/13/21 at 06:00; Stop 02/13/21 at 21:00; Status DC Ringer's Solution 1,000 ml @ 30 mls/hr Q24H IV ; Start 02/13/21 at 06:00; Stop 02/13/21 at 18:00; Status DC Hydromorphone HCl (Dilaudid) 0.5 mg PRN Q10MIN PRN IVP SEVERE PAIN 7-10, 2nd CHOICE Last administered on 02/13/21at 18:18; Start 02/13/21 at 06:00; Stop 02/13/21 at 21:00; Status DC Prochlorperazine Edisylate (Compazine) 5 mg PACU PRN PRN IVP NAUSEA, MRX1; Start 02/13/21 at 06:00; Stop 02/13/21 at 21:00; Status DC Propofol (Diprivan) 200 mg STK-MED ONCE IV ; Start 02/13/21 at 09:36; Stop 02/13/21 at 09:36; Status DC Lidocaine HCl (Lidocaine Pf 2% Vial) 5 ml STK-MED ONCE .ROUTE ; Start 02/13/21 at 09:36; Stop 02/13/21 at 09:36; Status DC Dexamethasone Sodium Phosphate (Decadron) 4 mg STK-MED ONCE .ROUTE ; Start 02/13/21 at 09:36; Stop 02/13/21 at 09:36; Status DC Ondansetron HCl (Zofran) 4 mg STK-MED ONCE .ROUTE ; Start 02/13/21 at 09:36; Stop 02/13/21 at 09:36; Status DC Rocuronium Vail (Zemuron) 50 mg STK-MED ONCE .ROUTE ; Start 02/13/21 at 09:36; Stop 02/13/21 at 09:36; Status DC Succinylcholine Chloride (Anectine) 200 mg STK-MED ONCE .ROUTE ; Start 02/13/21 at 09:38; Stop 02/13/21 at 09:38; Status DC Cefazolin Sodium/ Dextrose 0 ml @ As Directed STK-MED ONCE IV ; Start 02/13/21 at 09:45; Stop 02/13/21 at 09:45; Status DC Cefazolin Sodium (Ancef) 1 gm 1X PREOP PRN IVP PRIOR TO PROCEDURE; Start 02/13/21 at 10:00; Stop 02/13/21 at 15:08; Status DC Fentanyl Citrate (Fentanyl 2ml Vial) 100 mcg STK-MED ONCE .ROUTE ; Start 02/13/21 at 12:53; Stop 02/13/21 at 12:53; Status DC Rocuronium Vail (Zemuron) 50 mg STK-MED ONCE .ROUTE ; Start 02/13/21 at 13:53; Stop 02/13/21 at 13:54; Status DC Fentanyl Citrate (Fentanyl 2ml Vial) 100 mcg STK-MED ONCE .ROUTE ; Start 02/13/21 at 09:38; Stop 02/13/21 at 15:05; Status DC Hydromorphone HCl (Dilaudid) 2 mg STK-MED ONCE .ROUTE ; Start 02/13/21 at 15:42; Stop 02/13/21 at 15:43; Status DC Glycopyrrolate (Robinul) 1 mg STK-MED ONCE .ROUTE ; Start 02/13/21 at 16:33; Stop 02/13/21 at 16:33; Status DC Neostigmine Vail (Neostigmine Methylsulfate) 5 mg STK-MED ONCE .ROUTE ; Start 02/13/21 at 16:33; Stop 02/13/21 at 16:33; Status DC Enoxaparin Sodium (Lovenox 40mg Syringe) 40 mg Q24H SQ Last administered on 02/17/21at 18:35; Start 02/13/21 at 18:00 Sodium Chloride (Normal Saline Flush) 3 ml QSHIFT PRN IV AFTER MEDS AND BLOOD DRAWS; Start 02/13/21 at 17:15 Sodium Chloride 1,000 ml @ 100 mls/hr Q10H IV Last administered on 02/15/21at 13:11; Start 02/13/21 at 17:15; Stop 02/17/21 at 11:03; Status DC Naloxone HCl (Narcan) 0.4 mg PRN Q2MIN PRN IV SEE INSTRUCTIONS; Start 02/13/21 at 17:15 Sodium Chloride 1,000 ml @ 25 mls/hr Q24H IV Last administered on 02/17/21at 21:12; Start 02/13/21 at 17:15 Hydromorphone HCl 30 ml @ 0 mls/hr CONT PRN PRN IV PER PROTOCOL Last administered on 02/18/21at 08:16; Start 02/13/21 at 17:15 Ondansetron HCl (Zofran) 4 mg PRN Q6HRS PRN IVP NAUESA, 1ST CHOICE Last administered on 02/17/21at 21:25; Start 02/13/21 at 17:15 Hydromorphone HCl (Dilaudid) 2 mg STK-MED ONCE .ROUTE ; Start 02/13/21 at 17:45; Stop 02/13/21 at 17:45; Status DC Fentanyl Citrate (Fentanyl 2ml Vial) 100 mcg STK-MED ONCE .ROUTE ; Start 02/13/21 at 17:45; Stop 02/13/21 at 17:46; Status DC Ketorolac Tromethamine (Toradol 15mg Vial) 15 mg 1X ONCE IVP Last administered on 02/14/21at 09:33; Start 02/14/21 at 09:15; Stop 02/14/21 at 09:19; Status DC Info (FLU VACCINE SCREEN per RX) 1 each PRN DAILY PRN MC SEE COMMENTS; Start 02/14/21 at 23:30; Status Cancel Metoprolol Tartrate (Lopressor Vial) 5 mg PRN Q5MIN PRN IVP TACHYCARDIA Last administered on 02/17/21at 11:09; Start 02/15/21 at 20:15 Acetaminophen (Tylenol) 1,000 mg 1X ONCE PO Last administered on 02/15/21at 20:24; Start 02/15/21 at 20:15; Stop 02/15/21 at 20:16; Status DC Sodium Chloride 500 ml @ 500 mls/hr 1X ONCE IV ; Start 02/15/21 at 21:30; Stop 02/15/21 at 22:29; Status DC Ipratropium Vail (Atrovent) 0.5 mg 1X ONCE NEB ; Start 02/15/21 at 22:00; Stop 02/15/21 at 22:01; Status DC Ipratropium Vail (Atrovent) 0.5 mg RTQID NEB Last administered on 02/18/21at 11:39; Start 02/16/21 at 08:00 Vancomycin HCl (Vanco Per Pharmacy) 1 each PRN DAILY PRN MC SEE COMMENTS Last administered on 02/16/21at 03:40; Start 02/15/21 at 21:30; Stop 02/16/21 at 11:17; Status DC Cefepime HCl (Maxipime) 1 gm Q24H IVP Last administered on 02/15/21at 23:10; Start 02/15/21 at 22:00; Stop 02/16/21 at 11:18; Status DC Metronidazole 100 ml @ 100 mls/hr Q12HR IV Last administered on 02/18/21at 08:10; Start 02/15/21 at 22:00 Diltiazem HCl 125 mg/Sodium Chloride 125 ml @ 5 mls/hr CONT PRN IV SEE I/O RECORD Last administered on 02/18/21at 00:35; Start 02/15/21 at 21:30 Vancomycin HCl 1.75 gm/Sodium Chloride 500 ml @ 250 mls/hr 1X ONCE IV Last administered on 02/15/21at 23:00; Start 02/15/21 at 22:00; Stop 02/15/21 at 23:59; Status DC Methylprednisolone Sodium Succinate (SOLU-Medrol 40MG VIAL) 30 mg DAILY IV Last administered on 02/17/21at 09:10; Start 02/16/21 at 09:00; Stop 02/18/21 at 06:48; Status DC Vancomycin HCl 1 gm/Sodium Chloride 250 ml @ 250 mls/hr Q24H IV ; Start 02/16/21 at 23:00; Stop 02/16/21 at 11:16; Status DC Vancomycin HCl (Vancomycin Trough Level) 1 each 1X ONCE MC ; Start 02/17/21 at 22:30; Stop 02/16/21 at 11:17; Status DC Cefepime HCl (Maxipime) 2 gm Q12HR IVP Last administered on 02/18/21at 08:09; Start 02/16/21 at 12:00 Linezolid/Dextrose 300 ml @ 300 mls/hr Q12HR IV Last administered on 02/18/21at 08:10; Start 02/16/21 at 12:00 Info (Tpn Per Pharmacy) 1 each PRN DAILY PRN MC SEE COMMENTS Last administered on 02/18/21at 10:17; Start 02/16/21 at 14:00 Furosemide (Lasix) 20 mg 1X ONCE IVP Last administered on 02/16/21at 15:42; Start 02/16/21 at 14:15; Stop 02/16/21 at 14:16; Status DC Potassium Phosphate 15 mmol/ Sodium Chloride 105 ml @ 52.5 mls/hr 1X ONCE IV Last administered on 02/16/21at 15:43; Start 02/16/21 at 15:00; Stop 02/16/21 at 16:59; Status DC Sodium Chloride 90 meq/Potassium Chloride 50 meq/ Potassium Phosphate 20 mmol/ Magnesium Sulfate 10 meq/Calcium Gluconate 10 meq/ Multivitamins 10 ml/Zinc/Copper/ Manganese/ Selenium 1 ml/ Total Parenteral Nutrition/Amino Acids/Dextrose/ Fat Emulsion Intravenous 1,296 ml @ 54 mls/hr TPN CONT IV Last administered on 02/16/21at 21:24; Start 02/16/21 at 22:00; Stop 02/17/21 at 21:59; Status DC Sodium Phosphate 20 mmol/Sodium Chloride 256.6667 ml @ 64.167 m... 1X ONCE IV Last administered on 02/17/21at 10:55; Start 02/17/21 at 10:00; Stop 02/17/21 at 13:59; Status DC Sodium Chloride 90 meq/Sodium Phosphate 10 mmol/ Potassium Chloride 50 meq/ Potassium Phosphate 20 mmol/ Magnesium Sulfate 5 meq/ Multivitamins 10 ml/Zinc/Copper/ Manganese/ Selenium 1 ml/ Total Parenteral Nutrition/Amino Acids/Dextrose/ Fat Emulsion Intravenous 1,296 ml @ 54 mls/hr TPN CONT IV ; Start 02/17/21 at 22:00; Stop 02/17/21 at 09:07; Status DC Furosemide (Lasix) 40 mg 1X ONCE IVP Last administered on 02/17/21at 09:12; Start 02/17/21 at 09:15; Stop 02/17/21 at 09:16; Status DC Sodium Phosphate 20 mmol/Sodium Chloride 256.6667 ml @ 64.167 m... 1X ONCE IV ; Start 02/17/21 at 09:15; Stop 02/17/21 at 13:14; Status UNV Sodium Chloride 90 meq/Sodium Phosphate 10 mmol/ Potassium Chloride 50 meq/ Potassium Phosphate 20 mmol/ Magnesium Sulfate 5 meq/ Multivitamins 10 ml/Zinc/Copper/ Manganese/ Selenium 1 ml/ Total Parenteral Nutrition/Amino Acids/Dextrose/ Fat Emulsion Intravenous 1,080 ml @ 45 mls/hr TPN CONT IV Last administered on 02/17/21at 21:12; Start 02/17/21 at 22:00; Stop 02/18/21 at 21:59 Morphine Sulfate (Morphine Sulfate) 1 mg 1X ONCE IVP Last administered on 02/17/21at 11:20; Start 02/17/21 at 11:15; Stop 02/17/21 at 11:16; Status DC Lorazepam (Ativan Inj) 1 mg PRN Q4HRS PRN IVP ANXIETY / AGITATION Last adminis tered on 02/18/21at 08:07; Start 02/17/21 at 11:15 Epinephrine (S2 Racepinephrine) 0.5 ml 1X ONCE NEB Last administered on 02/17at 15:29; Start 02/17/21 at 14:15; Stop 02/17/21 at 14:16; Status DC Furosemide (Lasix) 20 mg 1X ONCE IVP Last administered on 02/18/21at 07:09; Start 02/18/21 at 07:00; Stop 02/18/21 at 07:01; Status DC Albuterol Sulfate (Ventolin Neb Soln) 2.5 mg PRN Q4HRS PRN NEB WHEEZING; Start 02/18/21 at 06:45 Methylprednisolone Sodium Succinate (SOLU-Medrol 125MG VIAL) 125 mg 1X ONCE IV Last administered on 02/18/21at 08:07; Start 02/18/21 at 07:00; Stop 02/18/21 at 07:01; Status DC Methylprednisolone Sodium Succinate (SOLU-Medrol 40MG VIAL) 40 mg Q12HR IV Last administered on 02/18/21at 09:00; Start 02/18/21 at 09:00 Sodium Phosphate 15 mmol/Sodium Chloride 105 ml @ 105 mls/hr 1X ONCE IV Last administered on 02/18/21at 09:20; Start 02/18/21 at 10:00; Stop 02/18/21 at 10:59; Status DC Sodium Acetate 90 meq/Sodium Phosphate 20 mmol/ Potassium Chloride 30 meq/ Potassium Phosphate 20 mmol/ Multivitamins 10 ml/Zinc/Copper/ Manganese/ Selenium 1 ml/ Total Parenteral Nutrition/Amino Acids/Dextrose/ Fat Emulsion I ntravenous 1,080 ml @ 45 mls/hr TPN CONT IV ; Start 02/18/21 at 22:00; Stop 02/19/21 at 21:59 Budesonide (Pulmicort) 0.5 mg 1X ONCE NEB Last administered on 02/18/21at 11:39; Start 02/18/21 at 11:15; Stop 02/18/21 at 11:16; Status DC Budesonide (Pulmicort) 0.5 mg RTBID NEB ; Start 02/18/21 at 20:00 Active Scripts Active Reported Vitamin B12 (Cyanocobalamin (Vitamin B-12)) 2,500 Mcg Tablet 500 Mg PO BID Nexium Capsule (Esomeprazole Magnesium) 40 Mg Capsule. 1 Cap PO BID Calcium 600 + Vit D 800 Tab (Calcium Carbonate/Vitamin D3) 1 Each Tablet 1 Tab PO BID 30 Days Benefiber (Wheat Dextrin) 1 Each Powd.pack 1 Each PO DAILY Lisinopril 10 Mg Tablet 1 Tab PO DAILY Leflunomide 10 Mg Tablet 10 Mg PO DAILY Prednisone 2.5 Mg Tablet 5 Mg PO DAILY Metoprolol Tartrate 25 Mg Tablet 1 Tab PO DAILY Hydrocodone-Apap 5-325 (Hydrocodone Bit/Acetaminophen) 1 Tab Tablet 1 Tab PO PRN BID PRN Gabapentin 100 Mg Capsule 100 Mg PO PRN BID PRN Folic Acid 0.8 Mg Tablet 3 Mg PO DAILY Cymbalta (Duloxetine Hcl) 30 Mg Capsule. 1 Cap PO DAILY Prolia (Denosumab) 60 Mg/1 Ml Disp.syrin 1 Syr SQ [id number] 1 Days Celexa (Citalopram Hydrobromide) 10 Mg Tablet 1 Tab PO DAILY Alprazolam 0.25 Mg Tablet 0.25 Mg PO PRN DAILY PRN Vitals/I & O Vital Sign - Last 24 Hours 02/17/21 02/17/21 02/17/21 02/17/21 12:02 15:00 15:30 15:38 Temp 97.6 97.6 Pulse 78 Resp 17 B/P (MAP) 155/54 (87) Pulse Ox 98 97 97 97 O2 Delivery Nasal Cannula Nasal Cannula Nasal Cannula Nasal Cannula O2 Flow Rate 3.0 3.0 3.0 3.0 02/17/21 02/17/21 02/17/21 02/17/21 19:00 20:00 21:00 23:00 Temp 98.0 97.8 98.0 97.8 Pulse 86 86 80 Resp 18 14 B/P (MAP) 179/75 (109) 170/57 (94) 165/68 (100) Pulse Ox 96 96 96 O2 Delivery Nasal Cannula Nasal Cannula Nasal Cannula Nasal Cannula O2 Flow Rate 3.0 3.0 3.0 3.0 02/18/21 02/18/21 02/18/21 02/18/21 03:00 07:00 08:00 08:00 Pulse 74 75 Resp 25 20 B/P (MAP) 166/59 (94) 185/65 (105) Pulse Ox 95 95 97 O2 Delivery Nasal Cannula Nasal Cannula Nasal Cannula Nasal Cannula O2 Flow Rate 3.0 3.0 3.0 3.0 02/18/21 02/18/21 02/18/21 02/18/21 08:16 09:20 11:00 11:39 Temp 97.5 97.5 Pulse 65 Resp 22 16 10 B/P (MAP) 159/63 (95) Pulse Ox 95 99 99 95 O2 Delivery Nasal Cannula Nasal Cannula Nasal Cannula Nasal Cannula O2 Flow Rate 3.0 3.0 3.0 4.0 Intake and Output 02/17/21 02/17/21 02/18/21 15:00 23:00 07:00 Intake Total 400 ml 200 ml 50 ml Output Total 745 ml 590 ml 305 ml Balance -345 ml -390 ml -255 ml Justifications for Admission Other Justification GENIA SANCHEZ MD Feb 18, 2021 11:49
[2021-02-18] MEDS ORDERED: DEXTROSE 50% 25 GM / 50ML DISP.SYRIN. IV PRN (12:00)
[2021-02-18] MEDS: INSULIN LISPRO 300 UNITS/3 ML VIAL. SQ SCH ×3 (12:22→23:42)
--- NOTE | 2021-02-18 12:42 | PDOC ---
Infectious Disease Note Subjective: Subjective Patient resting quietly Sedated from Ativan earlier today Tolerating clear liquids but p.o. intake remains poor Discussed with nursing staff Vital Signs: Vital Signs Vital Signs Date Time Temp Pulse Resp B/P (MAP) Pulse Ox O2 Delivery O2 Flow Rate FiO2 02/18/21 11:39 95 Nasal Cannula 4.0 02/18/21 11:00 97.5 65 10 159/63 (95) 97.5 Physical Exam: PHYSICAL EXAM GENERAL: Alert, oriented x 3 female, lying in bed comfortably, in no acute distress. Appears tired HEENT: Normocephalic, atraumatic. Anicteric. Dry mouth NECK: Supple. No JVD. LUNGS: Rales present + for wheezing HEART: Irregularly irregular no murmurs appreciated ABDOMEN: Obese ,mildly distended, binder in place, not taken down, intact dry Hypoactive bowel sounds EXTREMITIES mild edema present, no cyanosis MUSCULOSKELETAL: No joint swelling. No decrease in range of motion. CENTRAL NERVOUS SYSTEM: Alert, oriented x 3, grossly nonfocal. Generalized weakness PSYCHIATRIC: Cooperative, calm. PIV looks clean Medications: Inpatient Meds: Medications reviewed. Labs: Lab Laboratory Tests Test 02/18/21 07:15 02/18/21 12:19 Sodium Level 138 mmol/L (136-145) Potassium Level 4.8 mmol/L (3.5-5.1) Chloride Level 108 mmol/L (98-107) Carbon Dioxide Level 20 mmol/L (21-32) Anion Gap 10 (6-14) Blood Urea Nitrogen 47 mg/dL (7-20) Creatinine 1.0 mg/dL (0.6-1.0) Estimated GFR (Cockcroft-Gault) 53.8 Glucose Level 265 mg/dL (70-99) Calcium Level 7.3 mg/dL (8.5-10.1) Phosphorus Level 2.4 mg/dL (2.6-4.7) Magnesium Level 2.9 mg/dL (1.8-2.4) Glucose (Fingerstick) 322 mg/dL (70-99) Objective: Assessment: Status post large ventral hernia repair on February 12, 2021 Sepsis Leukocytosis Febrile illness Anemia A. fib with RVR CHF Renal insufficiency Rheumatoid arthritis Depression History of breast cancer Hypertension Plan: Plan of Care Cont cefepime to 2 g IV every 12hr, may need renal dosing Continue metronidazole and Zyvox, will wean soon Continue local wound care as directed Continue aspiration precaution PT and OT as tolerated Discussed with at bedside D/W MELINDA WALLACE MD Feb 18, 2021 12:42
--- NOTE | 2021-02-18 13:06 | PDOC ---
PROGRESS NOTES Date of Service DATE: 02/18/21 TIME: 13:05 Subjective Subjective pt sleeping soundly, received Ativan earlier Objective Objective Vital Signs Date Time Temp Pulse Resp B/P (MAP) Pulse Ox O2 Delivery O2 Flow Rate FiO2 02/18/21 11:39 95 Nasal Cannula 4.0 02/18/21 11:00 97.5 65 10 159/63 (95) 97.5 Intake and Output 02/18/21 07:00 Intake Total 650 ml Output Total 1640 ml Balance -990 ml Intake Oral 250 ml IV Total 400 ml Output Urine Total 1500 ml Drainage Total 140 ml Physical Exam Abdomen: Soft (MILTON serosang) Assessment Assessment S/P VHR Plan Plan of Care Appreciate medicine and cardiology assistance; would try to avoid Ativan and minimize narcotics as much as possible Comment Review of Relevant I have reviewed the following items keely (where applicable) has been applied. Labs Laboratory Tests Test 02/17/21 07:55 02/18/21 07:15 02/18/21 12:19 Sodium Level 135 mmol/L (136-145) 138 mmol/L (136-145) Potassium Level 4.3 mmol/L (3.5-5.1) 4.8 mmol/L (3.5-5.1) Chloride Level 103 mmol/L (98-107) 108 mmol/L (98-107) Carbon Dioxide Level 19 mmol/L (21-32) 20 mmol/L (21-32) Anion Gap 13 (6-14) 10 (6-14) Blood Urea Nitrogen 40 mg/dL (7-20) 47 mg/dL (7-20) Creatinine 1.0 mg/dL (0.6-1.0) 1.0 mg/dL (0.6-1.0) Estimated GFR (Cockcroft-Gault) 53.8 53.8 Glucose Level 206 mg/dL (70-99) 265 mg/dL (70-99) Calcium Level 7.3 mg/dL (8.5-10.1) 7.3 mg/dL (8.5-10.1) Phosphorus Level 1.8 mg/dL (2.6-4.7) 2.4 mg/dL (2.6-4.7) Magnesium Level 2.7 mg/dL (1.8-2.4) 2.9 mg/dL (1.8-2.4) Glucose (Fingerstick) 322 mg/dL (70-99) Laboratory Tests Test 02/18/21 07:15 02/18/21 12:19 Sodium Level 138 mmol/L (136-145) Potassium Level 4.8 mmol/L (3.5-5.1) Chloride Level 108 mmol/L (98-107) Carbon Dioxide Level 20 mmol/L (21-32) Anion Gap 10 (6-14) Blood Urea Nitrogen 47 mg/dL (7-20) Creatinine 1.0 mg/dL (0.6-1.0) Estimated GFR (Cockcroft-Gault) 53.8 Glucose Level 265 mg/dL (70-99) Calcium Level 7.3 mg/dL (8.5-10.1) Phosphorus Level 2.4 mg/dL (2.6-4.7) Magnesium Level 2.9 mg/dL (1.8-2.4) Glucose (Fingerstick) 322 mg/dL (70-99) Medications Current Medications Fentanyl Citrate (Fentanyl 2ml Vial) 25 mcg PRN Q5MIN PRN IVP MILD PAIN 1-3 Last administered on 02/13/21at 18:23; Start 02/13/21 at 06:00; Stop 02/13/21 at 21:00; Status DC Fentanyl Citrate (Fentanyl 2ml Vial) 50 mcg PRN Q5MIN PRN IVP MODERATE PAIN 4-6 Last administered on 02/13/21at 17:53; Start 02/13/21 at 06:00; Stop 02/13/21 at 21:00; Status DC Morphine Sulfate (Morphine Sulfate) 1 mg PRN Q10MIN PRN IVP SEVERE PAIN 7-10; Start 02/13/21 at 06:00; Stop 02/13/21 at 21:00; Status DC Ringer's Solution 1,000 ml @ 30 mls/hr Q24H IV ; Start 02/13/21 at 06:00; Stop 02/13/21 at 18:00; Status DC Hydromorphone HCl (Dilaudid) 0.5 mg PRN Q10MIN PRN IVP SEVERE PAIN 7-10, 2nd CHOICE Last administered on 02/13/21at 18:18; Start 02/13/21 at 06:00; Stop 02/13/21 at 21:00; Status DC Prochlorperazine Edisylate (Compazine) 5 mg PACU PRN PRN IVP NAUSEA, MRX1; Start 02/13/21 at 06:00; Stop 02/13/21 at 21:00; Status DC Propofol (Diprivan) 200 mg STK-MED ONCE IV ; Start 02/13/21 at 09:36; Stop 02/13/21 at 09:36; Status DC Lidocaine HCl (Lidocaine Pf 2% Vial) 5 ml STK-MED ONCE .ROUTE ; Start 02/13/21 at 09:36; Stop 02/13/21 at 09:36; Status DC Dexamethasone Sodium Phosphate (Decadron) 4 mg STK-MED ONCE .ROUTE ; Start 02/13/21 at 09:36; Stop 02/13/21 at 09:36; Status DC Ondansetron HCl (Zofran) 4 mg STK-MED ONCE .ROUTE ; Start 02/13/21 at 09:36; Stop 02/13/21 at 09:36; Status DC Rocuronium Republic (Zemuron) 50 mg STK-MED ONCE .ROUTE ; Start 02/13/21 at 09:36; Stop 02/13/21 at 09:36; Status DC Succinylcholine Chloride (Anectine) 200 mg STK-MED ONCE .ROUTE ; Start 02/13/21 at 09:38; Stop 02/13/21 at 09:38; Status DC Cefazolin Sodium/ Dextrose 0 ml @ As Directed STK-MED ONCE IV ; Start 02/13/21 at 09:45; Stop 02/13/21 at 09:45; Status DC Cefazolin Sodium (Ancef) 1 gm 1X PREOP PRN IVP PRIOR TO PROCEDURE; Start 02/13/21 at 10:00; Stop 02/13/21 at 15:08; Status DC Fentanyl Citrate (Fentanyl 2ml Vial) 100 mcg STK-MED ONCE .ROUTE ; Start 02/13/21 at 12:53; Stop 02/13/21 at 12:53; Status DC Rocuronium Republic (Zemuron) 50 mg STK-MED ONCE .ROUTE ; Start 02/13/21 at 13:53; Stop 02/13/21 at 13:54; Status DC Fentanyl Citrate (Fentanyl 2ml Vial) 100 mcg STK-MED ONCE .ROUTE ; Start 02/13/21 at 09:38; Stop 02/13/21 at 15:05; Status DC Hydromorphone HCl (Dilaudid) 2 mg STK-MED ONCE .ROUTE ; Start 02/13/21 at 15:42; Stop 02/13/21 at 15:43; Status DC Glycopyrrolate (Robinul) 1 mg STK-MED ONCE .ROUTE ; Start 02/13/21 at 16:33; Stop 02/13/21 at 16:33; Status DC Neostigmine Republic (Neostigmine Methylsulfate) 5 mg STK-MED ONCE .ROUTE ; Start 02/13/21 at 16:33; Stop 02/13/21 at 16:33; Status DC Enoxaparin Sodium (Lovenox 40mg Syringe) 40 mg Q24H SQ Last administered on 02/17/21at 18:35; Start 02/13/21 at 18:00 Sodium Chloride (Normal Saline Flush) 3 ml QSHIFT PRN IV AFTER MEDS AND BLOOD DRAWS; Start 02/13/21 at 17:15 Sodium Chloride 1,000 ml @ 100 mls/hr Q10H IV Last administered on 02/15/21at 13:11; Start 02/13/21 at 17:15; Stop 02/17/21 at 11:03; Status DC Naloxone HCl (Narcan) 0.4 mg PRN Q2MIN PRN IV SEE INSTRUCTIONS; Start 02/13/21 at 17:15 Sodium Chloride 1,000 ml @ 25 mls/hr Q24H IV Last administered on 02/17/21at 21:12; Start 02/13/21 at 17:15 Hydromorphone HCl 30 ml @ 0 mls/hr CONT PRN PRN IV PER PROTOCOL Last administered on 02/18/21at 08:16; Start 02/13/21 at 17:15 Ondansetron HCl (Zofran) 4 mg PRN Q6HRS PRN IVP NAUESA, 1ST CHOICE Last administered on 02/17/21at 21:25; Start 02/13/21 at 17:15 Hydromorphone HCl (Dilaudid) 2 mg STK-MED ONCE .ROUTE ; Start 02/13/21 at 17:45; Stop 02/13/21 at 17:45; Status DC Fentanyl Citrate (Fentanyl 2ml Vial) 100 mcg STK-MED ONCE .ROUTE ; Start 02/13/21 at 17:45; Stop 02/13/21 at 17:46; Status DC Ketorolac Tromethamine (Toradol 15mg Vial) 15 mg 1X ONCE IVP Last administered on 02/14/21at 09:33; Start 02/14/21 at 09:15; Stop 02/14/21 at 09:19; Status DC Info (FLU VACCINE SCREEN per RX) 1 each PRN DAILY PRN MC SEE COMMENTS; Start 02/14/21 at 23:30; Status Cancel Metoprolol Tartrate (Lopressor Vial) 5 mg PRN Q5MIN PRN IVP TACHYCARDIA Last administered on 02/17/21at 11:09; Start 02/15/21 at 20:15 Acetaminophen (Tylenol) 1,000 mg 1X ONCE PO Last administered on 02/15/21at 20:24; Start 02/15/21 at 20:15; Stop 02/15/21 at 20:16; Status DC Sodium Chloride 500 ml @ 500 mls/hr 1X ONCE IV ; Start 02/15/21 at 21:30; Stop 02/15/21 at 22:29; Status DC Ipratropium Republic (Atrovent) 0.5 mg 1X ONCE NEB ; Start 02/15/21 at 22:00; Stop 02/15/21 at 22:01; Status DC Ipratropium Republic (Atrovent) 0.5 mg RTQID NEB Last administered on 02/18/21at 11:39; Start 02/16/21 at 08:00 Vancomycin HCl (Vanco Per Pharmacy) 1 each PRN DAILY PRN MC SEE COMMENTS Last administered on 02/16/21at 03:40; Start 02/15/21 at 21:30; Stop 02/16/21 at 11:17; Status DC Cefepime HCl (Maxipime) 1 gm Q24H IVP Last administered on 02/15/21at 23:10; Start 02/15/21 at 22:00; Stop 02/16/21 at 11:18; Status DC Metronidazole 100 ml @ 100 mls/hr Q12HR IV Last administered on 02/18/21at 08:10; Start 02/15/21 at 22:00 Diltiazem HCl 125 mg/Sodium Chloride 125 ml @ 5 mls/hr CONT PRN IV SEE I/O RECORD Last administered on 02/18/21at 00:35; Start 02/15/21 at 21:30 Vancomycin HCl 1.75 gm/Sodium Chloride 500 ml @ 250 mls/hr 1X ONCE IV Last administered on 02/15/21at 23:00; Start 02/15/21 at 22:00; Stop 02/15/21 at 23:59; Status DC Methylprednisolone Sodium Succinate (SOLU-Medrol 40MG VIAL) 30 mg DAILY IV Last administered on 02/17/21at 09:10; Start 02/16/21 at 09:00; Stop 02/18/21 at 06:48; Status DC Vancomycin HCl 1 gm/Sodium Chloride 250 ml @ 250 mls/hr Q24H IV ; Start 02/16/21 at 23:00; Stop 02/16/21 at 11:16; Status DC Vancomycin HCl (Vancomycin Trough Level) 1 each 1X ONCE MC ; Start 02/17/21 at 22:30; Stop 02/16/21 at 11:17; Status DC Cefepime HCl (Maxipime) 2 gm Q12HR IVP Last administered on 02/18/21at 08:09; Start 02/16/21 at 12:00 Linezolid/Dextrose 300 ml @ 300 mls/hr Q12HR IV Last administered on 02/18/21at 08:10; Start 02/16/21 at 12:00 Info (Tpn Per Pharmacy) 1 each PRN DAILY PRN MC SEE COMMENTS Last administered on 02/18/21at 10:17; Start 02/16/21 at 14:00 Furosemide (Lasix) 20 mg 1X ONCE IVP Last administered on 02/16/21at 15:42; Start 02/16/21 at 14:15; Stop 02/16/21 at 14:16; Status DC Potassium Phosphate 15 mmol/ Sodium Chloride 105 ml @ 52.5 mls/hr 1X ONCE IV Last administered on 02/16/21at 15:43; Start 02/16/21 at 15:00; Stop 02/16/21 at 16:59; Status DC Sodium Chloride 90 meq/Potassium Chloride 50 meq/ Potassium Phosphate 20 mmol/ Magnesium Sulfate 10 meq/Calcium Gluconate 10 meq/ Multivitamins 10 ml/Zinc/Copper/ Manganese/ Selenium 1 ml/ Total Parenteral Nutrition/Amino Acids /Dextrose/ Fat Emulsion Intravenous 1,296 ml @ 54 mls/hr TPN CONT IV Last administered on 02/16/21at 21:24; Start 02/16/21 at 22:00; Stop 02/17/21 at 21:59; Status DC Sodium Phosphate 20 mmol/Sodium Chloride 256.6667 ml @ 64.167 m... 1X ONCE IV Last administered on 02/17/21at 10:55; Start 02/17/21 at 10:00; Stop 02/17/21 at 13:59; Status DC Sodium Chloride 90 meq/Sodium Phosphate 10 mmol/ Potassium Chloride 50 meq/ Potassium Phosphate 20 mmol/ Magnesium Sulfate 5 meq/ Multivitamins 10 ml/Zinc/Copper/ Manganese/ Selenium 1 ml/ Total Parenteral Nutrition/Amino Acids/Dextrose/ Fat Emulsion Intravenous 1,296 ml @ 54 mls/hr TPN CONT IV ; Start 02/17/21 at 22:00; Stop 02/17/21 at 09:07; Status DC Furosemide (Lasix) 40 mg 1X ONCE IVP Last administered on 02/17/21at 09:12; Start 02/17/21 at 09:15; Stop 02/17/21 at 09:16; Status DC Sodium Phosphate 20 mmol/Sodium Chloride 256.6667 ml @ 64.167 m... 1X ONCE IV ; Start 02/17/21 at 09:15; Stop 02/17/21 at 13:14; Status UNV Sodium Chloride 90 meq/Sodium Phosphate 10 mmol/ Potassium Chloride 50 meq/ Potassium Phosphate 20 mmol/ Magnesium Sulfate 5 meq/ Multivitamins 10 ml/Zinc/Copper/ Manganese/ Selenium 1 ml/ Total Parenteral Nutrition/Amino Acids/Dextrose/ Fat Emulsion Intravenous 1,080 ml @ 45 mls/hr TPN CONT IV Last administered on 02/17/21at 21:12; Start 02/17/21 at 22:00; Stop 02/18/21 at 21:59 Morphine Sulfate (Morphine Sulfate) 1 mg 1X ONCE IVP Last administered on 02/17/21at 11:20; Start 02/17/21 at 11:15; Stop 02/17/21 at 11:16; Status DC Lorazepam (Ativan Inj) 1 mg PRN Q4HRS PRN IVP ANXIETY / AGITATION Last administered on 02/18/21at 08:07; Start 02/17/21 at 11:15 Epinephrine (S2 Racepinephrine) 0.5 ml 1X ONCE NEB Last administered on 02/17/21at 15:29; Start 02/17/21 at 14:15; Stop 02/17/21 at 14:16; Status DC Furosemide (Lasix) 20 mg 1X ONCE IVP Last administered on 02/18/21at 07:09; Start 02/18/21 at 07:00; Stop 02/18/21 at 07:01; Status DC Albuterol Sulfate (Ventolin Neb Soln) 2.5 mg PRN Q4HRS PRN NEB WHEEZING; Start 02/18/21 at 06:45 Methylprednisolone Sodium Succinate (SOLU-Medrol 125MG VIAL) 125 mg 1X ONCE IV Last administered on 02/18/21at 08:07; Start 02/18/21 at 07:00; Stop 02/18/21 at 07:01; Status DC Methylprednisolone Sodium Succinate (SOLU-Medrol 40MG VIAL) 40 mg Q12HR IV Last administered on 02/18/21at 09:00; Start 02/18/21 at 09:00 Sodium Phosphate 15 mmol/Sodium Chloride 105 ml @ 105 mls/hr 1X ONCE IV Last administered on 02/18/21at 09:20; Start 02/18/21 at 10:00; Stop 02/18/21 at 10:59; Status DC Sodium Acetate 90 meq/Sodium Phosphate 20 mmol/ Potassium Chloride 30 meq/ Potassium Phosphate 20 mmol/ Multivitamins 10 ml/Zinc/Copper/ Manganese/ Selenium 1 ml/ Total Parenteral Nutrition/Amino Acids/Dextrose/ Fat Emulsion Intravenous 1,080 ml @ 45 mls/hr TPN CONT IV ; Start 02/18/21 at 22:00; Stop 02/19/21 at 21:59 Budesonide (Pulmicort) 0.5 mg 1X ONCE NEB Last administered on 02/18/21at 11:39; Start 02/18/21 at 11:15; Stop 02/18/21 at 11:16; Status DC Budesonide (Pulmicort) 0.5 mg RTBID NEB ; Start 02/18/21 at 20:00 Insulin Human Lispro (HumaLOG) 0-7 UNITS Q6HRS SQ Last administered on 02/18/21at 12:22; Start 02/18/21 at 12:00 Dextrose (Dextrose 50%-Water Syringe) 12.5 gm PRN Q15MIN PRN IV SEE COMMENTS; Start 02/18/21 at 12:00 Hydralazine HCl (Apresoline Inj) 10 mg PRN Q4HRS PRN IVP ELEVATED BP, SEE COMMENTS; Start 02/18/21 at 12:30 Active Scripts Active Reported Vitamin B12 (Cyanocobalamin (Vitamin B-12)) 2,500 Mcg Tablet 500 Mg PO BID Nexium Capsule (Esomeprazole Magnesium) 40 Mg Capsule. 1 Cap PO BID Calcium 600 + Vit D 800 Tab (Calcium Carbonate/Vitamin D3) 1 Each Tablet 1 Tab PO BID 30 Days Benefiber (Wheat Dextrin) 1 Each Powd.pack 1 Each PO DAILY Lisinopril 10 Mg Tablet 1 Tab PO DAILY Leflunomide 10 Mg Tablet 10 Mg PO DAILY Prednisone 2.5 Mg Tablet 5 Mg PO DAILY Metoprolol Tartrate 25 Mg Tablet 1 Tab PO DAILY Hydrocodone-Apap 5-325 (Hydrocodone Bit/Acetaminophen) 1 Tab Tablet 1 Tab PO PRN BID PRN Gabapentin 100 Mg Capsule 100 Mg PO PRN BID PRN Folic Acid 0.8 Mg Tablet 3 Mg PO DAILY Cymbalta (Duloxetine Hcl) 30 Mg Capsule.dr Ruiz Cap PO DAILY Prolia (Denosumab) 60 Mg/1 Ml Disp.syrin 1 Syr SQ [id number] 1 Days Celexa (Citalopram Hydrobromide) 10 Mg Tablet 1 Tab PO DAILY Alprazolam 0.25 Mg Tablet 0.25 Mg PO PRN DAILY PRN Vitals/I & O Vital Sign - Last 24 Hours 02/17/21 02/17/21 02/17/21 02/17/21 15:00 15:30 15:38 19:00 Temp 97.6 97.6 Pulse 78 86 Resp 17 B/P (MAP) 155/54 (87) 179/75 (109) Pulse Ox 97 97 97 96 O2 Delivery Nasal Cannula Nasal Cannula Nasal Cannula Nasal Cannula O2 Flow Rate 3.0 3.0 3.0 3.0 02/17/21 02/17/21 02/17/21 02/18/21 20:00 21:00 23:00 03:00 Temp 98.0 97.8 98.0 97.8 Pulse 86 80 74 Resp 18 14 25 B/P (MAP) 170/57 (94) 165/68 (100) 166/59 (94) Pulse Ox 96 96 95 O2 Delivery Nasal Cannula Nasal Cannula Nasal Cannula Nasal Cannula O2 Flow Rate 3.0 3.0 3.0 3.0 02/18/21 02/18/21 02/18/21 02/18/21 07:00 08:00 08:00 08:16 Pulse 75 Resp 20 22 B/P (MAP) 185/65 (105) Pulse Ox 95 97 95 O2 Delivery Nasal Cannula Nasal Cannula Nasal Cannula Nasal Cannula O2 Flow Rate 3.0 3.0 3.0 3.0 02/18/21 02/18/21 02/18/21 09:20 11:00 11:39 Temp 97.5 97.5 Pulse 65 Resp 16 10 B/P (MAP) 159/63 (95) Pulse Ox 99 99 95 O2 Delivery Nasal Cannula Nasal Cannula Nasal Cannula O2 Flow Rate 3.0 3.0 4.0 Intake and Output 02/17/21 02/17/21 02/18/21 15:00 23:00 07:00 Intake Total 400 ml 200 ml 50 ml Output Total 745 ml 590 ml 305 ml Balance -345 ml -390 ml -255 ml Justifications for Admission Other Justification RAO APTTON MD Feb 18, 2021 13:06
[2021-02-18] MEDS: hydrALAZINE 20 MG/ML VIAL. IVP PRN (14:33)
[2021-02-18 15:00] VITALS: BP 139/53
[2021-02-18] MEDS: IV NORMAL SALINE 1000ML BAG 1,000 ML IV SCH (17:15)
[2021-02-18] MEDS: ENOXAPARIN 40 MG/0.4 ML SYRINGE. SQ SCH (18:33)
[2021-02-18 19:00] VITALS: BP 157/61
[2021-02-18] MEDS: BUDESONIDE 0.5 MG/2 ML NEBU. NEB SCH (20:00)
[2021-02-18] MEDS ORDERED: TOTAL PARENTERAL NUTRITION IV SCH (22:00)
[2021-02-18] MEDS ORDERED: AMINO ACID IV SCH (22:00)
[2021-02-18] MEDS ORDERED: [UNRECOGNIZED DRUG - OTHER] IV SCH (22:00)
[2021-02-18] MEDS ORDERED: DEXTROSE 70% IV SCH (22:00)
[2021-02-18 23:00] VITALS: BP 148/60
[2021-02-19] VITALS (7 sets, daily range): BP systolic 127–202; BP diastolic 55–85
[2021-02-19] MEDS: INSULIN LISPRO 300 UNITS/3 ML VIAL. SQ SCH ×3 (06:10→18:00)
[2021-02-19 06:12] LABS: BASO % 0 % (0-3); EOS % 0 % (0-3); HEMATOCRIT 26.9 % (36.0-47.0); HEMOGLOBIN 8.6 g/dL (12.0-15.5); LYMPH # 0.4 x10^3/uL (1.0-4.8); LYMPH % 3 % (24-48); MEAN CORPUSCULAR HEMOGLOBIN 29 pg (25-35); MEAN CORPUSCULAR HGB CONC 32 g/dL (31-37); MEAN CORPUSCULAR VOLUME 91 fL (79-100); MONO % 13 % (0-9); NEUT # 13.3 x10^3/uL (1.8-7.7); NEUT % 84 % (31-73); PLATELET COUNT 266 x10^3/uL (140-400); RED BLOOD COUNT 2.96 x10^6/uL (3.50-5.40); RED CELL DISTRIBUTION WIDTH 16.5 % (11.5-14.5); WHITE BLOOD COUNT 15.9 x10^3/uL (4.0-11.0)
[2021-02-19 06:27] LABS: ALBUMIN 1.9 g/dL (3.4-5.0); ALBUMIN/GLOBULIN RATIO 0.4 (1.0-1.7); CALCIUM 7.1 mg/dL (8.5-10.1); GFR 53.8; MAGNESIUM 2.8 mg/dL (1.8-2.4); PHOSPHORUS 2.8 mg/dL (2.6-4.7); POTASSIUM 5.8 mmol/L (3.5-5.1); TOTAL BILIRUBIN 0.3 mg/dL (0.2-1.0); TOTAL PROTEIN 6.3 g/dL (6.4-8.2)
--- NOTE | 2021-02-19 07:53 | PDOC ---
PULMONARY PROGRESS NOTES DATE: 02/19/21 TIME: 07:52 Subjective Patient currently on oxygen supplementation, lethargic, awakens to stimuli Vitals Vital Signs Date Time Temp Pulse Resp B/P (MAP) Pulse Ox O2 Delivery O2 Flow Rate FiO2 02/19/21 03:00 98.0 95 12 157/59 (91) 98 Nasal Cannula 3.0 98.0 Comments ros as mentioned above other sys otherwise neg General: Alert Lungs: Wheezing, Other (Upper airway noise, mostly from upper airway malacia) Cardiovascular: Other (irreg irreg ) Abdomen: Soft Neuro Exam: Alert Skin: Warm Labs Laboratory Tests Test 02/17/21 07:55 02/18/21 07:15 02/18/21 12:19 02/18/21 18:27 Sodium Level 135 mmol/L (136-145) 138 mmol/L (136-145) Potassium Level 4.3 mmol/L (3.5-5.1) 4.8 mmol/L (3.5-5.1) Chloride Level 103 mmol/L (98-107) 108 mmol/L (98-107) Carbon Dioxide Level 19 mmol/L (21-32) 20 mmol/L (21-32) Anion Gap 13 (6-14) 10 (6-14) Blood Urea Nitrogen 40 mg/dL (7-20) 47 mg/dL (7-20) Creatinine 1.0 mg/dL (0.6-1.0) 1.0 mg/dL (0.6-1.0) Estimated GFR (Cockcroft-Gault) 53.8 53.8 Glucose Level 206 mg/dL (70-99) 265 mg/dL (70-99) Calcium Level 7.3 mg/dL (8.5-10.1) 7.3 mg/dL (8.5-10.1) Phosphorus Level 1.8 mg/dL (2.6-4.7) 2.4 mg/dL (2.6-4.7) Magnesium Level 2.7 mg/dL (1.8-2.4) 2.9 mg/dL (1.8-2.4) Glucose (Fingerstick) 322 mg/dL (70-99) 286 mg/dL (70-99) Test 02/18/21 23:38 02/19/21 06:00 02/19/21 06:06 Glucose (Fingerstick) 239 mg/dL (70-99) 259 mg/dL (70-99) White Blood Count 15.9 x10^3/uL (4.0-11.0) Red Blood Count 2.96 x10^6/uL (3.50-5.40) Hemoglobin 8.6 g/dL (12.0-15.5) Hematocrit 26.9 % (36.0-47.0) Mean Corpuscular Volume 91 fL (79-100) Mean Corpuscular Hemoglobin 29 pg (25-35) Mean Corpuscular Hemoglobin Concent 32 g/dL (31-37) Red Cell Distribution Width 16.5 % (11.5-14.5) Platelet Count 266 x10^3/uL (140-400) Neutrophils (%) (Auto) 84 % (31-73) Lymphocytes (%) (Auto) 3 % (24-48) Monocytes (%) (Auto) 13 % (0-9) Eosinophils (%) (Auto) 0 % (0-3) Basophils (%) (Auto) 0 % (0-3) Neutrophils # (Auto) 13.3 x10^3/uL (1.8-7.7) Lymphocytes # (Auto) 0.4 x10^3/uL (1.0-4.8) Monocytes # (Auto) 2.0 x10^3/uL (0.0-1.1) Eosinophils # (Auto) 0.0 x10^3/uL (0.0-0.7) Basophils # (Auto) 0.0 x10^3/uL (0.0-0.2) Sodium Level 142 mmol/L (136-145) Potassium Level 5.8 mmol/L (3.5-5.1) Chloride Level 112 mmol/L (98-107) Carbon Dioxide Level 20 mmol/L (21-32) Anion Gap 10 (6-14) Blood Urea Nitrogen 61 mg/dL (7-20) Creatinine 1.0 mg/dL (0.6-1.0) Estimated GFR (Cockcroft-Gault) 53.8 BUN/Creatinine Ratio 61 (6-20) Glucose Level 286 mg/dL (70-99) Calcium Level 7.1 mg/dL (8.5-10.1) Phosphorus Level 2.8 mg/dL (2.6-4.7) Magnesium Level 2.8 mg/dL (1.8-2.4) Total Bilirubin 0.3 mg/dL (0.2-1.0) Aspartate Amino Transf (AST/SGOT) 12 U/L (15-37) Alanine Aminotransferase (ALT/SGPT) 21 U/L (14-59) Alkaline Phosphatase 67 U/L (46-116) Total Protein 6.3 g/dL (6.4-8.2) Albumin 1.9 g/dL (3.4-5.0) Albumin/Globulin Ratio 0.4 (1.0-1.7) Triglycerides Level 319 mg/dL (0-150) Laboratory Tests Test 02/18/21 12:19 02/18/21 18:27 02/18/21 23:38 02/19/21 06:00 Glucose (Fingerstick) 322 mg/dL (70-99) 286 mg/dL (70-99) 239 mg/dL (70-99) White Blood Count 15.9 x10^3/uL (4.0-11.0) Red Blood Count 2.96 x10^6/uL (3.50-5.40) Hemoglobin 8.6 g/dL (12.0-15.5) Hematocrit 26.9 % (36.0-47.0) Mean Corpuscular Volume 91 fL (79-100) Mean Corpuscular Hemoglobin 29 pg (25-35) Mean Corpuscular Hemoglobin Concent 32 g/dL (31-37) Red Cell Distribution Width 16.5 % (11.5-14.5) Platelet Count 266 x10^3/uL (140-400) Neutrophils (%) (Auto) 84 % (31-73) Lymphocytes (%) (Auto) 3 % (24-48) Monocytes (%) (Auto) 13 % (0-9) Eosinophils (%) (Auto) 0 % (0-3) Basophils (%) (Auto) 0 % (0-3) Neutrophils # (Auto) 13.3 x10^3/uL (1.8-7.7) Lymphocytes # (Auto) 0.4 x10^3/uL (1.0-4.8) Monocytes # (Auto) 2.0 x10^3/uL (0.0-1.1) Eosinophils # (Auto) 0.0 x10^3/uL (0.0-0.7) Basophils # (Auto) 0.0 x10^3/uL (0.0-0.2) Sodium Level 142 mmol/L (136-145) Potassium Level 5.8 mmol/L (3.5-5.1) Chloride Level 112 mmol/L (98-107) Carbon Dioxide Level 20 mmol/L (21-32) Anion Gap 10 (6-14) Blood Urea Nitrogen 61 mg/dL (7-20) Creatinine 1.0 mg/dL (0.6-1.0) Estimated GFR (Cockcroft-Gault) 53.8 BUN/Creatinine Ratio 61 (6-20) Glucose Level 286 mg/dL (70-99) Calcium Level 7.1 mg/dL (8.5-10.1) Phosphorus Level 2.8 mg/dL (2.6-4.7) Magnesium Level 2.8 mg/dL (1.8-2.4) Total Bilirubin 0.3 mg/dL (0.2-1.0) Aspartate Amino Transf (AST/SGOT) 12 U/L (15-37) Alanine Aminotransferase (ALT/SGPT) 21 U/L (14-59) Alkaline Phosphatase 67 U/L (46-116) Total Protein 6.3 g/dL (6.4-8.2) Albumin 1.9 g/dL (3.4-5.0) Albumin/Globulin Ratio 0.4 (1.0-1.7) Triglycerides Level 319 mg/dL (0-150) Test 02/19/21 06:06 Glucose (Fingerstick) 259 mg/dL (70-99) Medications Active Scripts Medications Dose Route/Sig Max Daily Dose Days Date Category Vitamin B12 (Cyanocobalamin (Vitamin B-12)) 2,500 Mcg Tablet 500 Mg PO BID 02/15/21 Reported Nexium Capsule (Esomeprazole Magnesium) 40 Mg Capsule. 1 Cap PO BID 02/15/21 Reported Calcium 600 + Vit D 800 Tab (Calcium Carbonate/Vitamin D3) 1 Each Tablet 1 Tab PO BID 30 02/15/21 Reported Benefiber (Wheat Dextrin) 1 Each Powd.pack 1 Each PO DAILY 02/15/21 Reported Lisinopril 10 Mg Tablet 1 Tab PO DAILY 02/15/21 Reported Leflunomide 10 Mg Tablet 10 Mg PO DAILY 02/15/21 Reported Prednisone 2.5 Mg Tablet 5 Mg PO DAILY 02/15/21 Reported Metoprolol Tartrate 25 Mg Tablet 1 Tab PO DAILY 02/15/21 Reported Hydrocodone-Apap 5-325 (Hydrocodone Bit/Acetaminophen) 1 Tab Tablet 1 Tab PO PRN BID PRN 02/15/21 Reported Gabapentin 100 Mg Capsule 100 Mg PO PRN BID PRN 02/15/21 Reported Folic Acid 0.8 Mg Tablet 3 Mg PO DAILY 02/15/21 Reported Cymbalta (Duloxetine Hcl) 30 Mg Capsule.dr Ruiz Cap PO DAILY 02/15/21 Reported Prolia (Denosumab) 60 Mg/1 Ml Disp.syrin 1 Syr SQ [id number] 02/15/21 Reported Celexa (Citalopram Hydrobromide) 10 Mg Tablet 1 Tab PO DAILY 02/15/21 Reported Alprazolam 0.25 Mg Tablet 0.25 Mg PO PRN DAILY PRN 02/15/21 Reported Impression . IMPRESSION: 1. Acute hypoxemic respiratory failure, multifactorial. 2. Abnormal x-ray, compatible with effusion, possibly congestive heart failure. Possible pneumonia. 3. A. fib with rapid ventricular response 4. Leukocytosis. 5. Fever. 6. Status post large ventral hernia repair on 02/13. 7. Rheumatoid arthritis with previously diagnosed as interstitial lung disease. 8. Hypertension. 9. Breast cancer, status post radiation. 10. Tobacco dependence, in remission. 11. Chronic obstructive pulmonary disease, unknown FEV1 12. Multifactorial encephalopathy/delirium Plan . Updated 02/19 Antibiotics per ID IV Lasix daily Repeat arterial blood gas Chest x-ray Cardiology to address hypertension and A. fib Avoid sedating from medication Suspect encephalopathy multifactorial in nature, will improved with time Nephrology has been consulted Audible wheezing is due to tracheobronchomalacia Discussed with at the bedside, he is somewhat confused on the current clinical scenario. I have instructed him to get his information from Dr. Caro, who is a personal friend of his. I did answer all of his questions. Patient's was also informed that patient may worsen prior to improving. Patient remains critically ill, total cumulative critical care time of 35 minutes, examining patient, interviewing . Reviewing the current findings and formulating a plan. PLAN: 1. wheezing suspect a combination of chf and copd w ae/bronchospasm lasix 20 mg iv now solumedrol 125 mg now add duo neb prn add ics start solumedrol 40 mg iv q 12 titrate fio2 to keep sat 92% start bipap prn and qhs obese suspect has fernando 2. Empiric antibiotics. zyvox cefepime 3. Chest x-ray reviewed, CHF. follow Cardiology rec 4. on cardizem gtt afib rate controlled 5. Diurese monitor k cr 6. start IS 7. change solumedrol to 40 daily 8. BD atrovent only avoid albuterol 9. lovenox for dvt prophylaxis discussed w rn critically ill cct 30 no overlap ASHLY PRADHAN MD Feb 19, 2021 07:53
[2021-02-19] MEDS ORDERED: fentaNYL PF VIAL 100 MCG/2 ML VIAL ONE (08:01)
[2021-02-19] MEDS: METOPROLOL IV PUSH 5 MG/5 ML VIAL. IVP PRN ×3 (08:13→09:23)
[2021-02-19] MEDS ORDERED: fentaNYL PF VIAL 100 MCG/2 ML VIAL IVP ONE (08:15)
[2021-02-19] MEDS: ONDANSETRON PF 4 MG/2 ML VIAL. IVP PRN (08:26)
[2021-02-19] MEDS: hydrALAZINE 20 MG/ML VIAL. IVP PRN (08:27)
[2021-02-19 08:40] LABS: % BANDS 8 % (0-9); % LYMPHS 5 % (24-48); % MONOS 3 % (0-10); % SEGS 84 % (35-66); PLT ESTIMATE ADEQUATE (ADEQUATE)
--- NOTE | 2021-02-19 08:40 | PDOC ---
PROGRESS NOTES Date of Service: DATE: 02/19/21 TIME: 08:39 Chief Complaint Chief Complaint Abdominal pain History of Present Illness History of Present Illness This patient was sent here for a ventral hernia repair which he underwent on February 13. Patient under the care of general surgery team. Patient had done really well after surgery initially she was actually planning to start trialing liquids yesterday however she had some worsening in her overall status concerning for sepsis. She was hypotensive and tachycardic up to the 160s. Her work-up showed A. fib with RVR requiring a Cardizem drip. Was evaluated by Dr. Caro who was concerned about her status recommending ICU transfer. Infectious Disease and pulmonary were consulted. Patient started on broad-spectrum antibiotics. Pulmonary following. 02/16 Patient evaluated in the ICU today. Her condition has significantly improved since last night. She is awake alert and oriented able to answer questions says pain is under control. Blood pressure holding steady. Remains on Cardizem drip. Continue antibiotics today. Suspect she can transfer out of ICU if beds are needed. Requesting to drink if she can, will defer this decision to surgery. 02/17 Patient evaluated at bedside. She is complaining about some shortness of breath but is feeling comfortable. Vitals look normal. at bedside is very concerned and tried to reassure him. Continue current plan. We will try 1 dose of Lasix today based upon chest x-ray. 02/18 Evaluated at bedside. Patient resting in bed. Appears to be in normal sinus rhythm. No major clinical changes otherwise. 02/19 Evaluated at bedside. Patient resting in bed pursed lip breathing D/W XAVIER/ [employer], ABG pending d/w in room k 5.8 on tpn pharmacy to adjust k in tpn Acute hypoxemic respiratory failure, multifactorial. Abnormal x-ray, compatible with effusion, possibly congestive heart failure. Possible pneumonia. on iv cefepime recent afib w rvr cardizem drip prn nephrology consulted bun 61 cr 1.0 severe protein, caloric malnutrition Status post large ventral hernia repair on February 12, 2021 Sepsis Leukocytosis Anemia Chronic obstructive pulmonary disease, unknown FEV1 Cont cefepime to 2 g IV every 12hr, may need renal dosing DC metronidazole and Zyvox ABG PH 7.29, PCO2 36 PO2 83 33 MIN CC TIME Vitals Vitals Vital Signs Date Time Temp Pulse Resp B/P (MAP) Pulse Ox O2 Delivery O2 Flow Rate FiO2 02/19/21 08:27 162 202/85 02/19/21 03:00 98.0 12 98 Nasal Cannula 3.0 98.0 Physical Exam Physical Exam GENERAL: Alert, oriented x 3 female, lying in bed comfortably, in no acute distress. Appears tired HEENT: Normocephalic, atraumatic. Anicteric. Dry mouth NECK: Supple. No JVD. LUNGS: Rales present + for wheezing HEART: Irregularly irregular no murmurs appreciated // tachy ABDOMEN: Obese ,mildly distended, binder in place, not taken down, intact dry Hypoactive bowel sounds EXTREMITIES mild edema present, no cyanosis MUSCULOSKELETAL: No joint swelling. No decrease in range of motion. CENTRAL NERVOUS SYSTEM: Alert, oriented x 3, grossly nonfocal. Generalized weakness PSYCHIATRIC: Cooperative, sleepy PIV looks clean General: Cooperative, mild distress Heart: Regular rate Lungs: Wheezing, Crackles Abdomen: Soft (MILTON serosang) Extremities: No edema, Normal pulses Skin: No significant lesion Labs LABS LEFT VENTRICLE The left ventricle is normal size. There is borderline concentric left ventricular hypertrophy. The left ventricular systolic function is normal. The ejection fraction is 55 to 60%. There is normal LV segmental wall motion. RIGHT VENTRICLE The right ventricle is normal size. The right ventricular systolic function is normal. ATRIA The left atrium size is normal. The right atrium size is normal. AORTIC VALVE The aortic valve is normal in structure and function. Doppler and Color Flow revealed mild aortic regurgitation. There is no significant aortic valvular stenosis. MITRAL VALVE The mitral valve is normal in structure and function. There is no evidence of mitral valve prolapse. There is no mitral valve stenosis. There is mild mitral valve regurgitation. TRICUSPID VALVE The tricuspid valve is normal in structure and function. Doppler and Color Flow revealed trace tricuspid regurgitation. GREAT VESSELS The aortic root is normal in size. The IVC was not visualized. PERICARDIAL EFFUSION There is no pleural effusion. There is no evidence of significant pericardial effusion. Critical Notification Critical Value: No <Conclusion> The left ventricle is normal size. The left ventricular systolic function is normal. The ejection fraction is 55 to 60%. There is borderline concentric left ventricular hypertrophy. Doppler and Color Flow revealed mild aortic regurgitation. There is no significant aortic valvular stenosis. There is mild mitral valve regurgitation. Doppler and Color Flow revealed trace tricuspid regurgitation. Signed by : Genia Jones MD Electronically Approved : 02/19/2021 11:08:55 DICTATED and SIGNED BY: GENIA JONES MD DATE: 02/18/21 [id number] 0Signed PATIENT: LYNDSEY JOSUE ACCOUNT: [id number] : 1945 LOCATION: [facility] ICU AGE: 75 SEX: F EXAM STATUS: ADM IN ORD. PHYSICIAN: JAYLYN MAZA MD REASON: SOA PROCEDURE: PORTABLE CHEST 1V XR CHEST 1V Clinical Indication: Reason: SOA Comparison: AP chest, prior day. Findings: Stable right PICC. Atherosclerotic thoracic aorta. The cardiomediastinal silhouette is stable. There are low lung volumes. Bilateral interstitial opacities are unchanged. There is no pneumothorax. No pleural effusion is appreciated. No acute bone abnormality. There are stable left axillary surgical clips. IMPRESSION: Bilateral interstitial opacities and low lung volumes are unchanged. Electronically signed by: Geni Cardoza MD (02/17/2021 9:10 AM) [id number] DICTATED and SIGNED BY: GENI CARDOZA MD Laboratory Tests Test 02/18/21 12:19 02/18/21 18:27 02/18/21 23:38 02/19/21 06:00 Glucose (Fingerstick) 322 mg/dL (70-99) 286 mg/dL (70-99) 239 mg/dL (70-99) White Blood Count 15.9 x10^3/uL (4.0-11.0) Red Blood Count 2.96 x10^6/uL (3.50-5.40) Hemoglobin 8.6 g/dL (12.0-15.5) Hematocrit 26.9 % (36.0-47.0) Mean Corpuscular Volume 91 fL (79-100) Mean Corpuscular Hemoglobin 29 pg (25-35) Mean Corpuscular Hemoglobin Concent 32 g/dL (31-37) Red Cell Distribution Width 16.5 % (11.5-14.5) Platelet Count 266 x10^3/uL (140-400) Neutrophils (%) (Auto) 84 % (31-73) Lymphocytes (%) (Auto) 3 % (24-48) Monocytes (%) (Auto) 13 % (0-9) Eosinophils (%) (Auto) 0 % (0-3) Basophils (%) (Auto) 0 % (0-3) Neutrophils # (Auto) 13.3 x10^3/uL (1.8-7.7) Lymphocytes # (Auto) 0.4 x10^3/uL (1.0-4.8) Monocytes # (Auto) 2.0 x10^3/uL (0.0-1.1) Eosinophils # (Auto) 0.0 x10^3/uL (0.0-0.7) Basophils # (Auto) 0.0 x10^3/uL (0.0-0.2) Sodium Level 142 mmol/L (136-145) Potassium Level 5.8 mmol/L (3.5-5.1) Chloride Level 112 mmol/L (98-107) Carbon Dioxide Level 20 mmol/L (21-32) Anion Gap 10 (6-14) Blood Urea Nitrogen 61 mg/dL (7-20) Creatinine 1.0 mg/dL (0.6-1.0) Estimated GFR (Cockcroft-Gault) 53.8 BUN/Creatinine Ratio 61 (6-20) Glucose Level 286 mg/dL (70-99) Calcium Level 7.1 mg/dL (8.5-10.1) Phosphorus Level 2.8 mg/dL (2.6-4.7) Magnesium Level 2.8 mg/dL (1.8-2.4) Total Bilirubin 0.3 mg/dL (0.2-1.0) Aspartate Amino Transf (AST/SGOT) 12 U/L (15-37) Alanine Aminotransferase (ALT/SGPT) 21 U/L (14-59) Alkaline Phosphatase 67 U/L (46-116) Total Protein 6.3 g/dL (6.4-8.2) Albumin 1.9 g/dL (3.4-5.0) Albumin/Globulin Ratio 0.4 (1.0-1.7) Triglycerides Level 319 mg/dL (0-150) Test 02/19/21 06:06 Glucose (Fingerstick) 259 mg/dL (70-99) Comment Review of Relevant I have reviewed the following items keely (where applicable) has been applied. Labs Laboratory Tests Test 02/18/21 07:15 02/18/21 12:19 02/18/21 18:27 02/18/21 23:38 Sodium Level 138 mmol/L (136-145) Potassium Level 4.8 mmol/L (3.5-5.1) Chloride Level 108 mmol/L (98-107) Carbon Dioxide Level 20 mmol/L (21-32) Anion Gap 10 (6-14) Blood Urea Nitrogen 47 mg/dL (7-20) Creatinine 1.0 mg/dL (0.6-1.0) Estimated GFR (Cockcroft-Gault) 53.8 Glucose Level 265 mg/dL (70-99) Calcium Level 7.3 mg/dL (8.5-10.1) Phosphorus Level 2.4 mg/dL (2.6-4.7) Magnesium Level 2.9 mg/dL (1.8-2.4) Glucose (Fingerstick) 322 mg/dL (70-99) 286 mg/dL (70-99) 239 mg/dL (70-99) Test 02/19/21 06:00 02/19/21 06:06 White Blood Count 15.9 x10^3/uL (4.0-11.0) Red Blood Count 2.96 x10^6/uL (3.50-5.40) Hemoglobin 8.6 g/dL (12.0-15.5) Hematocrit 26.9 % (36.0-47.0) Mean Corpuscular Volume 91 fL (79-100) Mean Corpuscular Hemoglobin 29 pg (25-35) Mean Corpuscular Hemoglobin Concent 32 g/dL (31-37) Red Cell Distribution Width 16.5 % (11.5-14.5) Platelet Count 266 x10^3/uL (140-400) Neutrophils (%) (Auto) 84 % (31-73) Lymphocytes (%) (Auto) 3 % (24-48) Monocytes (%) (Auto) 13 % (0-9) Eosinophils (%) (Auto) 0 % (0-3) Basophils (%) (Auto) 0 % (0-3) Neutrophils # (Auto) 13.3 x10^3/uL (1.8-7.7) Lymphocytes # (Auto) 0.4 x10^3/uL (1.0-4.8) Monocytes # (Auto) 2.0 x10^3/uL (0.0-1.1) Eosinophils # (Auto) 0.0 x10^3/uL (0.0-0.7) Basophils # (Auto) 0.0 x10^3/uL (0.0-0.2) Sodium Level 142 mmol/L (136-145) Potassium Level 5.8 mmol/L (3.5-5.1) Chloride Level 112 mmol/L (98-107) Carbon Dioxide Level 20 mmol/L (21-32) Anion Gap 10 (6-14) Blood Urea Nitrogen 61 mg/dL (7-20) Creatinine 1.0 mg/dL (0.6-1.0) Estimated GFR (Cockcroft-Gault) 53.8 BUN/Creatinine Ratio 61 (6-20) Glucose Level 286 mg/dL (70-99) Calcium Level 7.1 mg/dL (8.5-10.1) Phosphorus Level 2.8 mg/dL (2.6-4.7) Magnesium Level 2.8 mg/dL (1.8-2.4) Total Bilirubin 0.3 mg/dL (0.2-1.0) Aspartate Amino Transf (AST/SGOT) 12 U/L (15-37) Alanine Aminotransferase (ALT/SGPT) 21 U/L (14-59) Alkaline Phosphatase 67 U/L (46-116) Total Protein 6.3 g/dL (6.4-8.2) Albumin 1.9 g/dL (3.4-5.0) Albumin/Globulin Ratio 0.4 (1.0-1.7) Triglycerides Level 319 mg/dL (0-150) Glucose (Fingerstick) 259 mg/dL (70-99) Laboratory Tests Test 02/18/21 12:19 02/18/21 18:27 02/18/21 23:38 02/19/21 06:00 Glucose (Fingerstick) 322 mg/dL (70-99) 286 mg/dL (70-99) 239 mg/dL (70-99) White Blood Count 15.9 x10^3/uL (4.0-11.0) Red Blood Count 2.96 x10^6/uL (3.50-5.40) Hemoglobin 8.6 g/dL (12.0-15.5) Hematocrit 26.9 % (36.0-47.0) Mean Corpuscular Volume 91 fL (79-100) Mean Corpuscular Hemoglobin 29 pg (25-35) Mean Corpuscular Hemoglobin Concent 32 g/dL (31-37) Red Cell Distribution Width 16.5 % (11.5-14.5) Platelet Count 266 x10^3/uL (140-400) Neutrophils (%) (Auto) 84 % (31-73) Lymphocytes (%) (Auto) 3 % (24-48) Monocytes (%) (Auto) 13 % (0-9) Eosinophils (%) (Auto) 0 % (0-3) Basophils (%) (Auto) 0 % (0-3) Neutrophils # (Auto) 13.3 x10^3/uL (1.8-7.7) Lymphocytes # (Auto) 0.4 x10^3/uL (1.0-4.8) Monocytes # (Auto) 2.0 x10^3/uL (0.0-1.1) Eosinophils # (Auto) 0.0 x10^3/uL (0.0-0.7) Basophils # (Auto) 0.0 x10^3/uL (0.0-0.2) Sodium Level 142 mmol/L (136-145) Potassium Level 5.8 mmol/L (3.5-5.1) Chloride Level 112 mmol/L (98-107) Carbon Dioxide Level 20 mmol/L (21-32) Anion Gap 10 (6-14) Blood Urea Nitrogen 61 mg/dL (7-20) Creatinine 1.0 mg/dL (0.6-1.0) Estimated GFR (Cockcroft-Gault) 53.8 BUN/Creatinine Ratio 61 (6-20) Glucose Level 286 mg/dL (70-99) Calcium Level 7.1 mg/dL (8.5-10.1) Phosphorus Level 2.8 mg/dL (2.6-4.7) Magnesium Level 2.8 mg/dL (1.8-2.4) Total Bilirubin 0.3 mg/dL (0.2-1.0) Aspartate Amino Transf (AST/SGOT) 12 U/L (15-37) Alanine Aminotransferase (ALT/SGPT) 21 U/L (14-59) Alkaline Phosphatase 67 U/L (46-116) Total Protein 6.3 g/dL (6.4-8.2) Albumin 1.9 g/dL (3.4-5.0) Albumin/Globulin Ratio 0.4 (1.0-1.7) Triglycerides Level 319 mg/dL (0-150) Test 02/19/21 06:06 Glucose (Fingerstick) 259 mg/dL (70-99) Medications Current Medications Fentanyl Citrate (Fentanyl 2ml Vial) 25 mcg PRN Q5MIN PRN IVP MILD PAIN 1-3 Last administered on 02/13/21at 18:23; Start 02/13/21 at 06:00; Stop 02/13/21 at 21:00; Status DC Fentanyl Citrate (Fentanyl 2ml Vial) 50 mcg PRN Q5MIN PRN IVP MODERATE PAIN 4-6 Last administered on 02/13/21at 17:53; Start 02/13/21 at 06:00; Stop 02/13/21 at 21:00; Status DC Morphine Sulfate (Morphine Sulfate) 1 mg PRN Q10MIN PRN IVP SEVERE PAIN 7-10; Start 02/13/21 at 06:00; Stop 02/13/21 at 21:00; Status DC Ringer's Solution 1,000 ml @ 30 mls/hr Q24H IV ; Start 02/13/21 at 06:00; Stop 02/13/21 at 18:00; Status DC Hydromorphone HCl (Dilaudid) 0.5 mg PRN Q10MIN PRN IVP SEVERE PAIN 7-10, 2nd CHOICE Last administered on 02/13/21at 18:18; Start 02/13/21 at 06:00; Stop 02/13/21 at 21:00; Status DC Prochlorperazine Edisylate (Compazine) 5 mg PACU PRN PRN IVP NAUSEA, MRX1; Start 02/13/21 at 06:00; Stop 02/13/21 at 21:00; Status DC Propofol (Diprivan) 200 mg STK-MED ONCE IV ; Start 02/13/21 at 09:36; Stop 02/13/21 at 09:36; Status DC Lidocaine HCl (Lidocaine Pf 2% Vial) 5 ml STK-MED ONCE .ROUTE ; Start 02/13/21 at 09:36; Stop 02/13/21 at 09:36; Status DC Dexamethasone Sodium Phosphate (Decadron) 4 mg STK-MED ONCE .ROUTE ; Start 02/13/21 at 09:36; Stop 02/13/21 at 09:36; Status DC Ondansetron HCl (Zofran) 4 mg STK-MED ONCE .ROUTE ; Start 02/13/21 at 09:36; Stop 02/13/21 at 09:36; Status DC Rocuronium [place] (Zemuron) 50 mg STK-MED ONCE .ROUTE ; Start 02/13/21 at 09:36; Stop 02/13/21 at 09:36; Status DC Succinylcholine Chloride (Anectine) 200 mg STK-MED ONCE .ROUTE ; Start 02/13/21 at 09:38; Stop 02/13/21 at 09:38; Status DC Cefazolin Sodium/ Dextrose 0 ml @ As Directed STK-MED ONCE IV ; Start 02/13/21 at 09:45; Stop 02/13/21 at 09:45; Status DC Cefazolin Sodium (Ancef) 1 gm 1X PREOP PRN IVP PRIOR TO PROCEDURE; Start 02/13/21 at 10:00; Stop 02/13/21 at 15:08; Status DC Fentanyl Citrate (Fentanyl 2ml Vial) 100 mcg STK-MED ONCE .ROUTE ; Start 02/13/21 at 12:53; Stop 02/13/21 at 12:53; Status DC Rocuronium [place] (Zemuron) 50 mg STK-MED ONCE .ROUTE ; Start 02/13/21 at 13:53; Stop 02/13/21 at 13:54; Status DC Fentanyl Citrate (Fentanyl 2ml Vial) 100 mcg STK-MED ONCE .ROUTE ; Start 02/13/21 at 09:38; Stop 02/13/21 at 15:05; Status DC Hydromorphone HCl (Dilaudid) 2 mg STK-MED ONCE .ROUTE ; Start 02/13/21 at 15:42; Stop 02/13/21 at 15:43; Status DC Glycopyrrolate (Robinul) 1 mg STK-MED ONCE .ROUTE ; Start 02/13/21 at 16:33; Stop 02/13/21 at 16:33; Status DC Neostigmine [place] (Neostigmine Methylsulfate) 5 mg STK-MED ONCE .ROUTE ; Start 02/13/21 at 16:33; Stop 02/13/21 at 16:33; Status DC Enoxaparin Sodium (Lovenox 40mg Syringe) 40 mg Q24H SQ Last administered on 02/18/21at 18:33; Start 02/13/21 at 18:00 Sodium Chloride (Normal Saline Flush) 3 ml QSHIFT PRN IV AFTER MEDS AND BLOOD DRAWS; Start 02/13/21 at 17:15 Sodium Chloride 1,000 ml @ 100 mls/hr Q10H IV Last administered on 02/15/21at 13:11; Start 02/13/21 at 17:15; Stop 02/17/21 at 11:03; Status DC Naloxone HCl (Narcan) 0.4 mg PRN Q2MIN PRN IV SEE INSTRUCTIONS Last administer ed on 02/19/21at 08:26; Start 02/13/21 at 17:15 Sodium Chloride 1,000 ml @ 25 mls/hr Q24H IV Last administered on 02/18/21at 17:15; Start 02/13/21 at 17:15 Hydromorphone HCl 30 ml @ 0 mls/hr CONT PRN PRN IV PER PROTOCOL Last administered on 02/18/21at 08:16; Start 02/13/21 at 17:15 Ondansetron HCl (Zofran) 4 mg PRN Q6HRS PRN IVP NAUESA, 1ST CHOICE Last administered on 02/19/21at 08:26; Start 02/13/21 at 17:15 Hydromorphone HCl (Dilaudid) 2 mg STK-MED ONCE .ROUTE ; Start 02/13/21 at 17:45; Stop 02/13/21 at 17:45; Status DC Fentanyl Citrate (Fentanyl 2ml Vial) 100 mcg STK-MED ONCE .ROUTE ; Start 02/13/21 at 17:45; Stop 02/13/21 at 17:46; Status DC Ketorolac Tromethamine (Toradol 15mg Vial) 15 mg 1X ONCE IVP Last administered on 02/14/21at 09:33; Start 02/14/21 at 09:15; Stop 02/14/21 at 09:19; Status DC Info (FLU VACCINE SCREEN per RX) 1 each PRN DAILY PRN MC SEE COMMENTS; Start 02/14/21 at 23:30; Status Cancel Metoprolol Tartrate (Lopressor Vial) 5 mg PRN Q5MIN PRN IVP TACHYCARDIA Last administered on 02/19/21at 08:26; Start 02/15/21 at 20:15 Acetaminophen (Tylenol) 1,000 mg 1X ONCE PO Last administered on 02/15/21at 20:24; Start 02/15/21 at 20:15; Stop 02/15/21 at 20:16; Status DC Sodium Chloride 500 ml @ 500 mls/hr 1X ONCE IV ; Start 02/15/21 at 21:30; Stop 02/15/21 at 22:29; Status DC Ipratropium [place] (Atrovent) 0.5 mg 1X ONCE NEB ; Start 02/15/21 at 22:00; Stop 02/15/21 at 22:01; Status DC Ipratropium [place] (Atrovent) 0.5 mg RTQID NEB Last administered on 02/18/21at 20:00; Start 02/16/21 at 08:00 Vancomycin HCl (Vanco Per Pharmacy) 1 each PRN DAILY PRN MC SEE COMMENTS Last administered on 02/16/21at 03:40; Start 02/15/21 at 21:30; Stop 02/16/21 at 11:17; Status DC Cefepime HCl (Maxipime) 1 gm Q24H IVP Last administered on 02/15/21at 23:10; Start 02/15/21 at 22:00; Stop 02/16/21 at 11:18; Status DC Metronidazole 100 ml @ 100 mls/hr Q12HR IV Last administered on 02/18/21at 21:31; Start 02/15/21 at 22:00 Diltiazem HCl 125 mg/Sodium Chloride 125 ml @ 5 mls/hr CONT PRN IV SEE I/O RECORD Last administered on 02/18/21at 00:35; Start 02/15/21 at 21:30 Vancomycin HCl 1.75 gm/Sodium Chloride 500 ml @ 250 mls/hr 1X ONCE IV Last administered on 02/15/21at 23:00; Start 02/15/21 at 22:00; Stop 02/15/21 at 23:59; Status DC Methylprednisolone Sodium Succinate (SOLU-Medrol 40MG VIAL) 30 mg DAILY IV Last administered on 02/17/21at 09:10; Start 02/16/21 at 09:00; Stop 02/18/21 at 0 6:48; Status DC Vancomycin HCl 1 gm/Sodium Chloride 250 ml @ 250 mls/hr Q24H IV ; Start 02/16/21 at 23:00; Stop 02/16/21 at 11:16; Status DC Vancomycin HCl (Vancomycin Trough Level) 1 each 1X ONCE MC ; Start 02/17/21 at 22:30; Stop 02/16/21 at 11:17; Status DC Cefepime HCl (Maxipime) 2 gm Q12HR IVP Last administered on 02/18/21at 21:38; Start 02/16/21 at 12:00 Linezolid/Dextrose 300 ml @ 300 mls/hr Q12HR IV Last administered on 02/18/21at 21:34; Start 02/16/21 at 12:00 Info (Tpn Per Pharmacy) 1 each PRN DAILY PRN MC SEE COMMENTS Last administered on 02/18/21at 10:17; Start 02/16/21 at 14:00 Furosemide (Lasix) 20 mg 1X ONCE IVP Last administered on 02/16/21at 15:42; Start 02/16/21 at 14:15; Stop 02/16/21 at 14:16; Status DC Potassium Phosphate 15 mmol/ Sodium Chloride 105 ml @ 52.5 mls/hr 1X ONCE IV Last administered on 02/16/21at 15:43; Start 02/16/21 at 15:00; Stop 02/16/21 at 16:59; Status DC Sodium Chloride 90 meq/Potassium Chloride 50 meq/ Potassium Phosphate 20 mmol/ Magnesium Sulfate 10 meq/Calcium Gluconate 10 meq/ Multivitamins 10 ml/Zinc/Copper/ Manganese/ Selenium 1 ml/ Total Parenteral Nutrition/Amino Acids/Dextrose/ Fat Emulsion Intravenous 1,296 ml @ 54 mls/hr TPN CONT IV Last administered on 02/16/21at 21:24; Start 02/16/21 at 22:00; Stop 02/17/21 at 21:59; Status DC Sodium Phosphate 20 mmol/Sodium Chloride 256.6667 ml @ 64.167 m... 1X ONCE IV Last administered on 02/17/21at 10:55; Start 02/17/21 at 10:00; Stop 02/17/21 at 13:59; Status DC Sodium Chloride 90 meq/Sodium Phosphate 10 mmol/ Potassium Chloride 50 meq/ Potassium Phosphate 20 mmol/ Magnesium Sulfate 5 meq/ Multivitamins 10 ml/Zinc/Copper/ Manganese/ Selenium 1 ml/ Total Parenteral Nutrition/Amino Acids/Dextrose/ Fat Emulsion Intravenous 1,296 ml @ 54 mls/hr TPN CONT IV ; Start 02/17/21 at 22:00; Stop 02/17/21 at 09:07; Status DC Furosemide (Lasix) 40 mg 1X ONCE IVP Last administered on 02/17/21at 09:12; Start 02/17/21 at 09:15; Stop 02/17/21 at 09:16; Status DC Sodium Phosphate 20 mmol/Sodium Chloride 256.6667 ml @ 64.167 m... 1X ONCE IV ; Start 02/17/21 at 09:15; Stop 02/17/21 at 13:14; Status UNV Sodium Chloride 90 meq/Sodium Phosphate 10 mmol/ Potassium Chloride 50 meq/ Potassium Phosphate 20 mmol/ Magnesium Sulfate 5 meq/ Multivitamins 10 ml/Zinc/Copper/ Manganese/ Selenium 1 ml/ Total Parenteral Nutrition/Amino Acids/Dextrose/ Fat Emulsion Intravenous 1,080 ml @ 45 mls/hr TPN CONT IV Last administered on 02/17/21at 21:12; Start 02/17/21 at 22:00; Stop 02/18/21 at 21:59; Status DC Morphine Sulfate (Morphine Sulfate) 1 mg 1X ONCE IVP Last administered on 02/17/21at 11:20; Start 02/17/21 at 11:15; Stop 02/17/21 at 11:16; Status DC Lorazepam (Ativan Inj) 1 mg PRN Q4HRS PRN IVP ANXIETY / AGITATION Last administered on 02/18/21at 14:31; Start 02/17/21 at 11:15; Stop 02/18/21 at 14:43; Status DC Epinephrine (S2 Racepinephrine) 0.5 ml 1X ONCE NEB Last administered on 02/17/21at 15:29; Start 02/17/21 at 14:15; Stop 02/17/21 at 14:16; Status DC Furosemide (Lasix) 20 mg 1X ONCE IVP Last administered on 02/18/21at 07:09; Start 02/18/21 at 07:00; Stop 02/18/21 at 07:01; Status DC Albuterol Sulfate (Ventolin Neb Soln) 2.5 mg PRN Q4HRS PRN NEB WHEEZING; Start 02/18/21 at 06:45 Methylprednisolone Sodium Succinate (SOLU-Medrol 125MG VIAL) 125 mg 1X ONCE IV Last administered on 02/18/21at 08:07; Start 02/18/21 at 07:00; Stop 02/18/21 at 07:01; Status DC Methylprednisolone Sodium Succinate (SOLU-Medrol 40MG VIAL) 40 mg Q12HR IV Last administered on 02/18/21at 21:32; Start 02/18/21 at 09:00 Sodium Phosphate 15 mmol/Sodium Chloride 105 ml @ 105 mls/hr 1X ONCE IV Last administered on 02/18/21at 09:20; Start 02/18/21 at 10:00; Stop 02/18/21 at 10:5 9; Status DC Sodium Acetate 90 meq/Sodium Phosphate 20 mmol/ Potassium Chloride 30 meq/ Potassium Phosphate 20 mmol/ Multivitamins 10 ml/Zinc/Copper/ Manganese/ Selenium 1 ml/ Total Parenteral Nutrition/Amino Acids/Dextrose/ Fat Emulsion Intravenous 1,080 ml @ 45 mls/hr TPN CONT IV Last administered on 02/18/21at 21:35; Start 02/18/21 at 22:00; Stop 02/19/21 at 21:59 Budesonide (Pulmicort) 0.5 mg 1X ONCE NEB Last administered on 02/18/21at 11:39; Start 02/18/21 at 11:15; Stop 02/18/21 at 11:16; Status DC Budesonide (Pulmicort) 0.5 mg RTBID NEB Last administered on 02/18/21at 20:00; Start 02/18/21 at 20:00 Insulin Human Lispro (HumaLOG) 0-7 UNITS Q6HRS SQ Last administered on 02/19/21at 06:10; Start 02/18/21 at 12:00 Dextrose (Dextrose 50%-Water Syringe) 12.5 gm PRN Q15MIN PRN IV SEE COMMENTS; Start 02/18/21 at 12:00 Hydralazine HCl (Apresoline Inj) 10 mg PRN Q4HRS PRN IVP ELEVATED BP, SEE COMMENTS Last administered on 02/19/21at 08:27; Start 02/18/21 at 12:30 Fentanyl Citrate (Fentanyl 2ml Vial) 100 mcg STK-MED ONCE .ROUTE ; Start 02/19/21 at 08:01; Stop 02/19/21 at 08:02; Status DC Fentanyl Citrate (Fentanyl 2ml Vial) 50 mcg 1X ONCE IVP Last administered on 02/19/21at 08:06; Start 02/19/21 at 08:15; Stop 02/19/21 at 08:16; Status DC Active Scripts Active Reported Vitamin B12 (Cyanocobalamin (Vitamin B-12)) 2,500 Mcg Tablet 500 Mg PO BID Nexium Capsule (Esomeprazole Magnesium) 40 Mg Capsule. 1 Cap PO BID Calcium 600 + Vit D 800 Tab (Calcium Carbonate/Vitamin D3) 1 Each Tablet 1 Tab PO BID 30 Days Benefiber (Wheat Dextrin) 1 Each Powd.pack 1 Each PO DAILY Lisinopril 10 Mg Tablet 1 Tab PO DAILY Leflunomide 10 Mg Tablet 10 Mg PO DAILY Prednisone 2.5 Mg Tablet 5 Mg PO DAILY Metoprolol Tartrate 25 Mg Tablet 1 Tab PO DAILY Hydrocodone-Apap 5-325 (Hydrocodone Bit/Acetaminophen) 1 Tab Tablet 1 Tab PO PRN BID PRN Gabapentin 100 Mg Capsule 100 Mg PO PRN BID PRN Folic Acid 0.8 Mg Tablet 3 Mg PO DAILY Cymbalta (Duloxetine Hcl) 30 Mg Capsule. 1 Cap PO DAILY Prolia (Denosumab) 60 Mg/1 Ml Disp.syrin 1 Syr SQ [id number] 1 Days Celexa (Citalopram Hydrobromide) 10 Mg Tablet 1 Tab PO DAILY Alprazolam 0.25 Mg Tablet 0.25 Mg PO PRN DAILY PRN Vitals/I & O Vital Sign - Last 24 Hours 02/18/21 02/18/21 02/18/21 02/18/21 09:20 11:00 11:39 14:33 Temp 97.5 97.5 Pulse 65 94 Resp 16 10 B/P (MAP) 159/63 (95) 207/151 Pulse Ox 99 99 95 O2 Delivery Nasal Cannula Nasal Cannula Nasal Cannula O2 Flow Rate 3.0 3.0 4.0 02/18/21 02/18/21 02/18/21 02/18/21 15:00 16:02 19:00 20:00 Temp 98.1 97.9 98.1 97.9 Pulse 93 104 Resp 12 20 B/P (MAP) 139/53 (81) 157/61 (93) Pulse Ox 97 97 96 O2 Delivery Nasal Cannula Nasal Cannula Nasal Cannula Nasal Cannula O2 Flow Rate 3.0 4.0 3.0 3.0 02/18/21 02/18/21 02/19/21 02/19/21 20:37 23:00 03:00 08:13 Temp 98.2 98.0 98.2 98.0 Pulse 95 95 166 Resp 20 12 B/P (MAP) 148/60 (89) 157/59 (91) 130/89 Pulse Ox 97 98 98 O2 Delivery Nasal Cannula Nasal Cannula Nasal Cannula O2 Flow Rate 4.0 3.0 3.0 02/19/21 02/19/21 08:26 08:27 Pulse 163 162 B/P (MAP) 165/82 202/85 Intake and Output 02/18/21 02/18/21 02/19/21 15:00 23:00 07:00 Intake Total 50 ml 151.3 ml 2113.2 ml Output Total 375 ml 180 ml 340 ml Balance -325 ml -28.7 ml 1773.2 ml Justicifation of Admission Dx: Justifications for Admission: Justification of Admission Dx: Yes ANIL CARBAJAL MD Feb 19, 2021 08:39
--- NOTE | 2021-02-19 08:45 | PDOC ---
SURGICAL PROGRESS NOTE DATE: 02/19/21 TIME: 08:42 Subjective received ativan, decreased alertness, received narcan this Am--significant pain, increased BP , HR currently in chair, moaning Vital Signs Vital Signs Date Time Temp Pulse Resp B/P (MAP) Pulse Ox O2 Delivery O2 Flow Rate FiO2 02/19/21 08:27 162 202/85 02/19/21 03:00 98.0 12 98 Nasal Cannula 3.0 98.0 I&O Intake and Output 02/19/21 07:00 Intake Total 2314.5 ml Output Total 895 ml Balance 1419.5 ml Intake Oral 50 ml IV Total 2264.5 ml Output Urine Total 895 ml General: Other (moaning, still not fully alert ) Abdomen: Soft, Other (drains serosang, dressing to incision dry ) Labs Laboratory Tests Test 02/18/21 07:15 02/18/21 12:19 02/18/21 18:27 02/18/21 23:38 Sodium Level 138 mmol/L (136-145) Potassium Level 4.8 mmol/L (3.5-5.1) Chloride Level 108 mmol/L (98-107) Carbon Dioxide Level 20 mmol/L (21-32) Anion Gap 10 (6-14) Blood Urea Nitrogen 47 mg/dL (7-20) Creatinine 1.0 mg/dL (0.6-1.0) Estimated GFR (Cockcroft-Gault) 53.8 Glucose Level 265 mg/dL (70-99) Calcium Level 7.3 mg/dL (8.5-10.1) Phosphorus Level 2.4 mg/dL (2.6-4.7) Magnesium Level 2.9 mg/dL (1.8-2.4) Glucose (Fingerstick) 322 mg/dL (70-99) 286 mg/dL (70-99) 239 mg/dL (70-99) Test 02/19/21 06:00 02/19/21 06:06 White Blood Count 15.9 x10^3/uL (4.0-11.0) Red Blood Count 2.96 x10^6/uL (3.50-5.40) Hemoglobin 8.6 g/dL (12.0-15.5) Hematocrit 26.9 % (36.0-47.0) Mean Corpuscular Volume 91 fL (79-100) Mean Corpuscular Hemoglobin 29 pg (25-35) Mean Corpuscular Hemoglobin Concent 32 g/dL (31-37) Red Cell Distribution Width 16.5 % (11.5-14.5) Platelet Count 266 x10^3/uL (140-400) Neutrophils (%) (Auto) 84 % (31-73) Lymphocytes (%) (Auto) 3 % (24-48) Monocytes (%) (Auto) 13 % (0-9) Eosinophils (%) (Auto) 0 % (0-3) Basophils (%) (Auto) 0 % (0-3) Neutrophils # (Auto) 13.3 x10^3/uL (1.8-7.7) Lymphocytes # (Auto) 0.4 x10^3/uL (1.0-4.8) Monocytes # (Auto) 2.0 x10^3/uL (0.0-1.1) Eosinophils # (Auto) 0.0 x10^3/uL (0.0-0.7) Basophils # (Auto) 0.0 x10^3/uL (0.0-0.2) Segmented Neutrophils % 84 % (35-66) Band Neutrophils % 8 % (0-9) Lymphocytes % 5 % (24-48) Monocytes % 3 % (0-10) Platelet Estimate Adequate (ADEQUATE) Sodium Level 142 mmol/L (136-145) Potassium Level 5.8 mmol/L (3.5-5.1) Chloride Level 112 mmol/L (98-107) Carbon Dioxide Level 20 mmol/L (21-32) Anion Gap 10 (6-14) Blood Urea Nitrogen 61 mg/dL (7-20) Creatinine 1.0 mg/dL (0.6-1.0) Estimated GFR (Cockcroft-Gault) 53.8 BUN/Creatinine Ratio 61 (6-20) Glucose Level 286 mg/dL (70-99) Calcium Level 7.1 mg/dL (8.5-10.1) Phosphorus Level 2.8 mg/dL (2.6-4.7) Magnesium Level 2.8 mg/dL (1.8-2.4) Total Bilirubin 0.3 mg/dL (0.2-1.0) Aspartate Amino Transf (AST/SGOT) 12 U/L (15-37) Alanine Aminotransferase (ALT/SGPT) 21 U/L (14-59) Alkaline Phosphatase 67 U/L (46-116) Total Protein 6.3 g/dL (6.4-8.2) Albumin 1.9 g/dL (3.4-5.0) Albumin/Globulin Ratio 0.4 (1.0-1.7) Triglycerides Level 319 mg/dL (0-150) Glucose (Fingerstick) 259 mg/dL (70-99) Laboratory Tests Test 02/18/21 12:19 02/18/21 18:27 02/18/21 23:38 02/19/21 06:00 Glucose (Fingerstick) 322 mg/dL (70-99) 286 mg/dL (70-99) 239 mg/dL (70-99) White Blood Count 15.9 x10^3/uL (4.0-11.0) Red Blood Count 2.96 x10^6/uL (3.50-5.40) Hemoglobin 8.6 g/dL (12.0-15.5) Hematocrit 26.9 % (36.0-47.0) Mean Corpuscular Volume 91 fL (79-100) Mean Corpuscular Hemoglobin 29 pg (25-35) Mean Corpuscular Hemoglobin Concent 32 g/dL (31-37) Red Cell Distribution Width 16.5 % (11.5-14.5) Platelet Count 266 x10^3/uL (140-400) Neutrophils (%) (Auto) 84 % (31-73) Lymphocytes (%) (Auto) 3 % (24-48) Monocytes (%) (Auto) 13 % (0-9) Eosinophils (%) (Auto) 0 % (0-3) Basophils (%) (Auto) 0 % (0-3) Neutrophils # (Auto) 13.3 x10^3/uL (1.8-7.7) Lymphocytes # (Auto) 0.4 x10^3/uL (1.0-4.8) Monocytes # (Auto) 2.0 x10^3/uL (0.0-1.1) Eosinophils # (Auto) 0.0 x10^3/uL (0.0-0.7) Basophils # (Auto) 0.0 x10^3/uL (0.0-0.2) Segmented Neutrophils % 84 % (35-66) Band Neutrophils % 8 % (0-9) Lymphocytes % 5 % (24-48) Monocytes % 3 % (0-10) Platelet Estimate Adequate (ADEQUATE) Sodium Level 142 mmol/L (136-145) Potassium Level 5.8 mmol/L (3.5-5.1) Chloride Level 112 mmol/L (98-107) Carbon Dioxide Level 20 mmol/L (21-32) Anion Gap 10 (6-14) Blood Urea Nitrogen 61 mg/dL (7-20) Creatinine 1.0 mg/dL (0.6-1.0) Estimated GFR (Cockcroft-Gault) 53.8 BUN/Creatinine Ratio 61 (6-20) Glucose Level 286 mg/dL (70-99) Calcium Level 7.1 mg/dL (8.5-10.1) Phosphorus Level 2.8 mg/dL (2.6-4.7) Magnesium Level 2.8 mg/dL (1.8-2.4) Total Bilirubin 0.3 mg/dL (0.2-1.0) Aspartate Amino Transf (AST/SGOT) 12 U/L (15-37) Alanine Aminotransferase (ALT/SGPT) 21 U/L (14-59) Alkaline Phosphatase 67 U/L (46-116) Total Protein 6.3 g/dL (6.4-8.2) Albumin 1.9 g/dL (3.4-5.0) Albumin/Globulin Ratio 0.4 (1.0-1.7) Triglycerides Level 319 mg/dL (0-150) Test 02/19/21 06:06 Glucose (Fingerstick) 259 mg/dL (70-99) Problem List pain control, without over sedation increase activity as more alert could add Tylenol once more awake and taking po Justicifation of Admission Dx: Justifications for Admission: Justification of Admission Dx: Yes LELA MARIE MOTORSPORTS TECHNICIAN Feb 19, 2021 08:45
[2021-02-19] MEDS: BUDESONIDE 0.5 MG/2 ML NEBU. NEB SCH ×2 (09:15→20:34)
[2021-02-19] MEDS: IPRATROPIUM BROMIDE 0.5 MG/2.5 ML NEBU. NEB SCH ×4 (09:15→20:34)
[2021-02-19] MEDS: CEFEPIME HCL IV Push 2 GM VIAL. IVP SCH ×2 (09:21→21:02)
[2021-02-19] MEDS: methylPREDNISolone SOD SUCC PF 40 MG/ML VIAL. IV SCH ×2 (09:29→21:01)
[2021-02-19 10:18] LABS: CLARITY,URINE CLOUDY; COLOR,URINE BROWN
[2021-02-19 10:19] LABS: BACTERIA,URINE 0 /HPF (0-FEW); RBC,URINE >40 /HPF (0-2); YEAST,URINE PRESENT /HPF
--- NOTE | 2021-02-19 10:33 | PDOC ---
Infectious Disease Note Subjective: Subjective Patient resting quietly Sedated, had bout of agitation Tolerating clear liquids but p.o. intake remains poor Discussed with nursing staff Vital Signs: Vital Signs Vital Signs Date Time Temp Pulse Resp B/P (MAP) Pulse Ox O2 Delivery O2 Flow Rate FiO2 02/19/21 09:23 145 143/72 02/19/21 09:15 95 Nasal Cannula 4.0 02/19/21 08:45 16 02/19/21 07:00 98.1 98.1 Physical Exam: PHYSICAL EXAM GENERAL: Patient is resting quietly lying in bed comfortably, in no acute distress. HEENT: Normocephalic, atraumatic. Anicteric. Dry mouth NECK: Supple. No JVD. LUNGS: Rales present + for wheezing HEART: Irregularly irregular ABDOMEN: Obese ,mildly distended, binder in place, not taken down, intact dry Hypoactive bowel sounds EXTREMITIES mild edema present, no cyanosis MUSCULOSKELETAL: No joint swelling. No decrease in range of motion. CENTRAL NERVOUS SYSTEM: Alert, oriented x 3, grossly nonfocal. Generalized weakness PSYCHIATRIC: Cooperative, calm. PIV looks clean Medications: Inpatient Meds: Medications reviewed. Labs: Lab Laboratory Tests Test 02/18/21 12:19 02/18/21 18:27 02/18/21 23:38 02/19/21 06:00 Glucose (Fingerstick) 322 mg/dL (70-99) 286 mg/dL (70-99) 239 mg/dL (70-99) White Blood Count 15.9 x10^3/uL (4.0-11.0) Red Blood Count 2.96 x10^6/uL (3.50-5.40) Hemoglobin 8.6 g/dL (12.0-15.5) Hematocrit 26.9 % (36.0-47.0) Mean Corpuscular Volume 91 fL (79-100) Mean Corpuscular Hemoglobin 29 pg (25-35) Mean Corpuscular Hemoglobin Concent 32 g/dL (31-37) Red Cell Distribution Width 16.5 % (11.5-14.5) Platelet Count 266 x10^3/uL (140-400) Neutrophils (%) (Auto) 84 % (31-73) Lymphocytes (%) (Auto) 3 % (24-48) Monocytes (%) (Auto) 13 % (0-9) Eosinophils (%) (Auto) 0 % (0-3) Basophils (%) (Auto) 0 % (0-3) Neutrophils # (Auto) 13.3 x10^3/uL (1.8-7.7) Lymphocytes # (Auto) 0.4 x10^3/uL (1.0-4.8) Monocytes # (Auto) 2.0 x10^3/uL (0.0-1.1) Eosinophils # (Auto) 0.0 x10^3/uL (0.0-0.7) Basophils # (Auto) 0.0 x10^3/uL (0.0-0.2) Segmented Neutrophils % 84 % (35-66) Band Neutrophils % 8 % (0-9) Lymphocytes % 5 % (24-48) Monocytes % 3 % (0-10) Platelet Estimate Adequate (ADEQUATE) Sodium Level 142 mmol/L (136-145) Potassium Level 5.8 mmol/L (3.5-5.1) Chloride Level 112 mmol/L (98-107) Carbon Dioxide Level 20 mmol/L (21-32) Anion Gap 10 (6-14) Blood Urea Nitrogen 61 mg/dL (7-20) Creatinine 1.0 mg/dL (0.6-1.0) Estimated GFR (Cockcroft-Gault) 53.8 BUN/Creatinine Ratio 61 (6-20) Glucose Level 286 mg/dL (70-99) Calcium Level 7.1 mg/dL (8.5-10.1) Phosphorus Level 2.8 mg/dL (2.6-4.7) Magnesium Level 2.8 mg/dL (1.8-2.4) Total Bilirubin 0.3 mg/dL (0.2-1.0) Aspartate Amino Transf (AST/SGOT) 12 U/L (15-37) Alanine Aminotransferase (ALT/SGPT) 21 U/L (14-59) Alkaline Phosphatase 67 U/L (46-116) Total Protein 6.3 g/dL (6.4-8.2) Albumin 1.9 g/dL (3.4-5.0) Albumin/Globulin Ratio 0.4 (1.0-1.7) Triglycerides Level 319 mg/dL (0-150) Test 02/19/21 06:06 02/19/21 09:49 Glucose (Fingerstick) 259 mg/dL (70-99) Urine Collection Type Unknown Urine Color Brown Urine Clarity Cloudy Urine pH (<5.0-8.0) Urine Specific [place] (1.000-1.030) Urine Protein mg/dL (NEG-TRACE) Urine Glucose (UA) mg/dL (NEG) Urine Ketones (Stick) mg/dL (NEG) Urine Blood (NEG) Urine Nitrite (NEG) Urine Bilirubin (NEG) Urine Urobilinogen Dipstick mg/dL (0.2 mg/dL) Urine Leukocyte Esterase (NEG) Urine RBC >40 /HPF (0-2) Urine WBC 1-4 /HPF (0-4) Urine Squamous Epithelial Cells Few /LPF Urine Bacteria 0 /HPF (0-FEW) Urine Yeast Present /HPF Objective: Assessment: Status post large ventral hernia repair on February 12, 2021 Sepsis Leukocytosis Febrile illness Anemia A. fib with RVR CHF Renal insufficiency Rheumatoid arthritis Depression History of breast cancer Hypertension Hyperkalemia Plan: Plan of Care Cont cefepime to 2 g IV every 12hr, may need renal dosing DC metronidazole and Zyvox Continue local wound care as directed Continue aspiration precaution PT and OT as tolerated Discussed with at bedside D/W MELINDA WALLACE MD Feb 19, 2021 10:33
--- NOTE | 2021-02-19 10:41 | NUR ---
SS following up with discharge planning. SS reviewed pt chart and discussed with pt RN. Pt is currently requiring oxygen at four liters nasal canula. Pt on TPN, IV Solu-Medrol, and IV Cefepime. Nephrology consulted. Pt has home oxygen. PT/OT on hold. SS will continue to follow for discharge planning.
--- NOTE | 2021-02-19 11:09 | CARD ---
MR#: [id number] Date of Study: 02/18/2021 Ordering Physician: OLIVERIO JONES, Referring Physician: OLIVERIO JONES, Tech: Zara Radford TERESE APPROVED REPORT EXAM: Two-dimensional and M-mode echocardiogram with Doppler and color Doppler. Other Information Quality : PoorHR: 82bpm INDICATION Congestive Heart Failure 2D DIMENSIONS Left Atrium(2D)3.9 (1.6-4.0cm)IVSd1.1 (0.7-1.1cm) Aortic Root(2D)2.1 (2.0-3.7cm)LVDd5.0 (3.9-5.9cm) LVOT Diameter2.1 (1.8-2.4cm)PWd1.1 (0.7-1.1cm) LVDs4.4 (2.5-4.0cm)FS (%) 8.2 % SV19.2 mlLVEF(%)66.0 (>50%) Tricuspid Valve TR P. [id number] [id number] TR Peak [id number] LEFT VENTRICLE The left ventricle is normal size. There is borderline concentric left ventricular hypertrophy. The l eft ventricular systolic function is normal. The ejection fraction is 55 to 60%. There is normal LV s egmental wall motion. RIGHT VENTRICLE The right ventricle is normal size. The right ventricular systolic function is normal. ATRIA The left atrium size is normal. The right atrium size is normal. AORTIC VALVE The aortic valve is normal in structure and function. Doppler and Color Flow revealed mild aortic reg urgitation. There is no significant aortic valvular stenosis. MITRAL VALVE The mitral valve is normal in structure and function. There is no evidence of mitral valve prolapse. There is no mitral valve stenosis. There is mild mitral valve regurgitation. TRICUSPID VALVE The tricuspid valve is normal in structure and function. Doppler and Color Flow revealed trace tricus pid regurgitation. GREAT VESSELS The aortic root is normal in size. The IVC was not visualized. PERICARDIAL EFFUSION There is no pleural effusion. There is no evidence of significant pericardial effusion. Critical Notification Critical Value: No <Conclusion> The left ventricle is normal size. The left ventricular systolic function is normal. The ejection fraction is 55 to 60%. There is borderline concentric left ventricular hypertrophy. Doppler and Color Flow revealed mild aortic regurgitation. There is no significant aortic valvular stenosis. There is mild mitral valve regurgitation. Doppler and Color Flow revealed trace tricuspid regurgitation. Signed by : Oliverio Jones MD Electronically Approved : 02/19/2021 11:08:55
--- NOTE | 2021-02-19 11:52 | PDOC ---
CLIFFORD MERLOS PHOTOGRAPHER HELPER 02/19/21 1152: CARDIO Progress Notes Date and Time Date of Service 02/19/21 Time of Evaluation 1340 Subjective Subjective: Other (sleeping in chair. at bedside ) Vitals Vitals Vital Signs Date Time Temp Pulse Resp B/P (MAP) Pulse Ox O2 Delivery O2 Flow Rate FiO2 02/19/21 11:00 145 22 138/78 (98) 95 Nasal Cannula 3.0 02/19/21 07:00 98.1 98.1 Weight Weight [ ] Input and Output Intake and Output Intake and Output 02/19/21 07:00 Intake Total 2314.5 ml Output Total 895 ml Balance 1419.5 ml Intake Oral 50 ml IV Total 2264.5 ml Output Urine Total 895 ml Laboratory Labs Laboratory Tests Test 02/18/21 12:19 02/18/21 18:27 02/18/21 23:38 02/19/21 06:00 Glucose (Fingerstick) 322 mg/dL (70-99) 286 mg/dL (70-99) 239 mg/dL (70-99) White Blood Count 15.9 x10^3/uL (4.0-11.0) Red Blood Count 2.96 x10^6/uL (3.50-5.40) Hemoglobin 8.6 g/dL (12.0-15.5) Hematocrit 26.9 % (36.0-47.0) Mean Corpuscular Volume 91 fL (79-100) Mean Corpuscular Hemoglobin 29 pg (25-35) Mean Corpuscular Hemoglobin Concent 32 g/dL (31-37) Red Cell Distribution Width 16.5 % (11.5-14.5) Platelet Count 266 x10^3/uL (140-400) Neutrophils (%) (Auto) 84 % (31-73) Lymphocytes (%) (Auto) 3 % (24-48) Monocytes (%) (Auto) 13 % (0-9) Eosinophils (%) (Auto) 0 % (0-3) Basophils (%) (Auto) 0 % (0-3) Neutrophils # (Auto) 13.3 x10^3/uL (1.8-7.7) Lymphocytes # (Auto) 0.4 x10^3/uL (1.0-4.8) Monocytes # (Auto) 2.0 x10^3/uL (0.0-1.1) Eosinophils # (Auto) 0.0 x10^3/uL (0.0-0.7) Basophils # (Auto) 0.0 x10^3/uL (0.0-0.2) Segmented Neutrophils % 84 % (35-66) Band Neutrophils % 8 % (0-9) Lymphocytes % 5 % (24-48) Monocytes % 3 % (0-10) Platelet Estimate Adequate (ADEQUATE) Sodium Level 142 mmol/L (136-145) Potassium Level 5.8 mmol/L (3.5-5.1) Chloride Level 112 mmol/L (98-107) Carbon Dioxide Level 20 mmol/L (21-32) Anion Gap 10 (6-14) Blood Urea Nitrogen 61 mg/dL (7-20) Creatinine 1.0 mg/dL (0.6-1.0) Estimated GFR (Cockcroft-Gault) 53.8 BUN/Creatinine Ratio 61 (6-20) Glucose Level 286 mg/dL (70-99) Calcium Level 7.1 mg/dL (8.5-10.1) Phosphorus Level 2.8 mg/dL (2.6-4.7) Magnesium Level 2.8 mg/dL (1.8-2.4) Total Bilirubin 0.3 mg/dL (0.2-1.0) Aspartate Amino Transf (AST/SGOT) 12 U/L (15-37) Alanine Aminotransferase (ALT/SGPT) 21 U/L (14-59) Alkaline Phosphatase 67 U/L (46-116) Total Protein 6.3 g/dL (6.4-8.2) Albumin 1.9 g/dL (3.4-5.0) Albumin/Globulin Ratio 0.4 (1.0-1.7) Triglycerides Level 319 mg/dL (0-150) Test 02/19/21 06:06 02/19/21 09:49 Glucose (Fingerstick) 259 mg/dL (70-99) Urine Collection Type Unknown Urine Color Brown Urine Clarity Cloudy Urine pH (<5.0-8.0) Urine Specific [place] (1.000-1.030) Urine Protein mg/dL (NEG-TRACE) Urine Glucose (UA) mg/dL (NEG) Urine Ketones (Stick) mg/dL (NEG) Urine Blood (NEG) Urine Nitrite (NEG) Urine Bilirubin (NEG) Urine Urobilinogen Dipstick mg/dL (0.2 mg/dL) Urine Leukocyte Esterase (NEG) Urine RBC >40 /HPF (0-2) Urine WBC 1-4 /HPF (0-4) Urine Squamous Epithelial Cells Few /LPF Urine Bacteria 0 /HPF (0-FEW) Urine Yeast Present /HPF Physical Exam HEENT: Neck Supple W Full Motion LUNGS: Other (diminished bases) Heart: other (Aflutter with RVR) Abdomen: Other (obese) Extremities: Other (1-2+ bilateral LE edema ) Neurology: other (sleeping ) Assessment Assessment 1. S/p ventricular hernia repair 02/13 2. Post-op AFIB/flutter with RVR; presently aflutter with RVR 3. Acute respiratory failure with AE COPD, CHF 4. Acute diastolic CHF; echo with preserved LV systolic function. s/p IV diuresis 4. Leukocytosis, fevers 5. Hypertensive urgency; better controlled 6. Anemia; hgb drift to 8.6. 7. H/o breast CA s/p radiation 8. Hyperkalemia; renal consulted 9. Encephalopathy; s/p narcan this am Recommendations Digoxin IV x1 now Start metoprolol IV q6 for rate control [id number] correlating with a 7.2% risk of stroke per year. On Lovenox for DVT prophylaxis presently. Will hold off on increasing to treatment dosing at this time given downward trend in hgb. Monitor hgb Hydralazine PRN for BP control Continue diuresis with monitoring of renal function Continue post-op management per surgical team Justicifation of Admission Dx: Justifications for Admission: Justification of Admission Dx: Yes ALICE LOVE MD 02/20/21 1431: CARDIO Progress Notes Assessment Assessment Patient seen and examined 02/19/2021. Agree with CONSTRUCTION PROJECT ENGINEER's assessment and plan. Postoperative atrial fibrillation/flutter, presently with atrial flutter with RVR/2-1 conduction Agree with digoxin and metoprolol for better rate control Continue postop care per general surgery team Consider initiating long-term anticoagulation when okay from surgical standpoint CLIFFORD MERLOS APRN Feb 19, 2021 11:52 ALICE LOVE MD Feb 20, 2021 14:31
[2021-02-19] MEDS: TPN PER PHARMACY MC PRN (11:56)
--- NOTE | 2021-02-19 12:06 | NUR ---
Pharmacy TPN Dosing Note S: LYNDSEY JOSUE is a 75 year old F Currently receiving Central Continuous TPN started 02/16/21 B:Pertinent PMH: NPO s/p hernia repair Height: 4 feet, 9 inches Weight: 74.2 kg Current diet: clears LABS: Sodium: 142 Potassium: 5.8 Chloride: 112 Calcium: 7.1 Corrected Calcium: 8.78 Magnesium: 2.8 CO2: 20 SCr: 1 Glucose: 259 Albumin: 1.9 AST: 12 ALT: 21 TPN FORMULA: TPN TYPE: Central Continuous AMINO ACIDS: 60 gm DEXTROSE: 195 gm LIPIDS: 20 gm SODIUM PHOSPHATE: 40 mmol MULTIPLE VITAMIN: 10 ml TRACE ELEMENTS: 1 ml(s) TPN PLAN: All potassium removed from TPN Sodium chloride removed as Kphos converted to sodium phos. R: Change TPN per plan and ordered formula Will monitor electrolytes, glucose, and tolerance to TPN. Migdalia Fernandes RPH, 02/19/21 1295
[2021-02-19 12:10] LABS: BASE EXCESS ABG -9 mmol/L (-3-3); HCO3 ABG 17 mmol/L (21-28); PCO2 ABG 36 mmHg (35-46); PO2 ABG 83 mmHg (65-108); SAT O2 ABG 95 % (92-99)
--- NOTE | 2021-02-19 12:11 | EKG ---
[facility] [address] [place] [address] Test Date: 2021-02-19 Test Time: 12:07:08 Pat Name: LYNDSEY JOSUE Department: Room: 103 1 Gender: F Cleaning Maid: SONYA : 1945 Requested By: CLIFFORD MERLOS Order Number: [id number] Reading MD: Measurements Intervals [place] Rate: 140 P: MS: QRS: -9 QRSD: 110 T: 7 QT: 316 QTc: 486 Interpretive Statements IRREGULAR RHYTHM, NO P-WAVE FOUND LEFTWARD AXIS R-S TRANSITION ZONE IN V LEADS DISPLACED TO THE RIGHT INCOMPLETE RIGHT BUNDLE BRANCH BLOCK RVH WITH REPOLARIZATION ABNORMALITY QRS(T) CONTOUR ABNORMALITY CONSIDER INFERIOR INFARCT ABNORMAL ECG RI6.02 Compared to ECG 02/15/2021 19:56:03 Left-axis deviation now present Myocardial infarct finding now present Supraventricular tachycardia no longer present
[2021-02-19 12:14] LABS: FIO2 ABG 36
--- NOTE | 2021-02-19 12:26 | PDOC2 ---
CONSULT Date of Consult Date of Consult DATE: 02/19/21 TIME: 11:51 Reason for Consult Reason for Consult: HyperKalemia, Blood in urine Source Source: Caregiver, Chart review History of Present Illness Reason for Visit: Patient is 75 yo female admitted since 02/14 referred with a large ventral hernia underwent ventral hernia repair with mesh . Post operatively she had sepsis, she was hypotensive and tachycardic up to the 160s-. went into A. fib with RVR requiring diltiazem drip Continued to had low-grade fevers. She was started on Abx, ID and Pulm following She has been wake alert and oriented, Blood pressure was holding steady. On 02/17 she was complaining of some shortness of breath , Vitals stable per chart notes Recd 1 dose of Lasix based upon chest x-ray. She was lethargic this morning , with good response to Narcan -was alert but started c/o -significant pain, increased BP and HR- recd Fentanyl . Currently resting in chair, asleep , On o2 by NC 2lts Tolerating clear liquids but p.o. intake remains poor, has been on TPN, held this morning. She had Barraza in place , with dark urine - per nursing it was clear and noted dark since this morning , also noticed some decrease in UOP . No reported N/V/D. She has undergone multiple abdominal surgeries in the past Past Medical History Past Medical History rheumatoid arthritis, depression, hypertension interstitial lung disease, possibly related to rheumatoid arthritis; depression;history of breast cancer, status post radiation. Past Surgical History Past Surgical History Large ventral hernia repair during this admission. sigmoid colectomy with colostomy, colostomy takedown, hernia repair, lumpectomy, hysterectomy Family History Family History Noncontributory. Social History Social History She quit tobacco in 1991. Quit Current Medications Current Medications Current Medications Fentanyl Citrate (Fentanyl 2ml Vial) 25 mcg PRN Q5MIN PRN IVP MILD PAIN 1-3 Last administered on 02/13/21at 18:23; Start 02/13/21 at 06:00; Stop 02/13/21 at 21:00; Status DC Fentanyl Citrate (Fentanyl 2ml Vial) 50 mcg PRN Q5MIN PRN IVP MODERATE PAIN 4-6 Last administered on 02/13/21at 17:53; Start 02/13/21 at 06:00; Stop 02/13/21 at 21:00; Status DC Morphine Sulfate (Morphine Sulfate) 1 mg PRN Q10MIN PRN IVP SEVERE PAIN 7-10; Start 02/13/21 at 06:00; Stop 02/13/21 at 21:00; Status DC Ringer's Solution 1,000 ml @ 30 mls/hr Q24H IV ; Start 02/13/21 at 06:00; Stop 02/13/21 at 18:00; Status DC Hydromorphone HCl (Dilaudid) 0.5 mg PRN Q10MIN PRN IVP SEVERE PAIN 7-10, 2nd CHOICE Last administered on 02/13/21at 18:18; Start 02/13/21 at 06:00; Stop 02/13/21 at 21:00; Status DC Prochlorperazine Edisylate (Compazine) 5 mg PACU PRN PRN IVP NAUSEA, MRX1; Start 02/13/21 at 06:00; Stop 02/13/21 at 21:00; Status DC Propofol (Diprivan) 200 mg STK-MED ONCE IV ; Start 02/13/21 at 09:36; Stop 02/13/21 at 09:36; Status DC Lidocaine HCl (Lidocaine Pf 2% Vial) 5 ml STK-MED ONCE .ROUTE ; Start 02/13/21 at 09:36; Stop 02/13/21 at 09:36; Status DC Dexamethasone Sodium Phosphate (Decadron) 4 mg STK-MED ONCE .ROUTE ; Start 02/13/21 at 09:36; Stop 02/13/21 at 09:36; Status DC Ondansetron HCl (Zofran) 4 mg STK-MED ONCE .ROUTE ; Start 02/13/21 at 09:36; Stop 02/13/21 at 09:36; Status DC Rocuronium [place] (Zemuron) 50 mg STK-MED ONCE .ROUTE ; Start 02/13/21 at 09:36; Stop 02/13/21 at 09:36; Status DC Succinylcholine Chloride (Anectine) 200 mg STK-MED ONCE .ROUTE ; Start 02/13/21 at 09:38; Stop 02/13/21 at 09:38; Status DC Cefazolin Sodium/ Dextrose 0 ml @ As Directed STK-MED ONCE IV ; Start 02/13/21 at 09:45; Stop 02/13/21 at 09:45; Status DC Cefazolin Sodium (Ancef) 1 gm 1X PREOP PRN IVP PRIOR TO PROCEDURE; Start 02/13/21 at 10:00; Stop 02/13/21 at 15:08; Status DC Fentanyl Citrate (Fentanyl 2ml Vial) 100 mcg STK-MED ONCE .ROUTE ; Start 02/13/21 at 12:53; Stop 02/13/21 at 12:53; Status DC Rocuronium [place] (Zemuron) 50 mg STK-MED ONCE .ROUTE ; Start 02/13/21 at 13:53; Stop 02/13/21 at 13:54; Status DC Fentanyl Citrate (Fentanyl 2ml Vial) 100 mcg STK-MED ONCE .ROUTE ; Start 02/13/21 at 09:38; Stop 02/13/21 at 15:05; Status DC Hydromorphone HCl (Dilaudid) 2 mg STK-MED ONCE .ROUTE ; Start 02/13/21 at 15:42; Stop 02/13/21 at 15:43; Status DC Glycopyrrolate (Robinul) 1 mg STK-MED ONCE .ROUTE ; Start 02/13/21 at 16:33; Stop 02/13/21 at 16:33; Status DC Neostigmine [place] (Neostigmine Methylsulfate) 5 mg STK-MED ONCE .ROUTE ; Start 02/13/21 at 16:33; Stop 02/13/21 at 16:33; Status DC Enoxaparin Sodium (Lovenox 40mg Syringe) 40 mg Q24H SQ Last administered on 02/18/21at 18:33; Start 02/13/21 at 18:00 Sodium Chloride (Normal Saline Flush) 3 ml QSHIFT PRN IV AFTER MEDS AND BLOOD DRAWS; Start 02/13/21 at 17:15 Sodium Chloride 1,000 ml @ 100 mls/hr Q10H IV Last administered on 02/15/21at 13:11; Start 02/13/21 at 17:15; Stop 02/17/21 at 11:03; Status DC Naloxone HCl (Narcan) 0.4 mg PRN Q2MIN PRN IV SEE INSTRUCTIONS Last administered on 02/19/21at 08:26; Start 02/13/21 at 17:15 Sodium Chloride 1,000 ml @ 25 mls/hr Q24H IV Last administered on 02/18/21at 17:15; Start 02/13/21 at 17:15 Hydromorphone HCl 30 ml @ 0 mls/hr CONT PRN PRN IV PER PROTOCOL Last administered on 02/18/21at 08:16; Start 02/13/21 at 17:15 Ondansetron HCl (Zofran) 4 mg PRN Q6HRS PRN IVP NAUESA, 1ST CHOICE Last administered on 02/19/21at 08:26; Start 02/13/21 at 17:15 Hydromorphone HCl (Dilaudid) 2 mg STK-MED ONCE .ROUTE ; Start 02/13/21 at 17:45; Stop 02/13/21 at 17:45; Status DC Fentanyl Citrate (Fentanyl 2ml Vial) 100 mcg STK-MED ONCE .ROUTE ; Start 02/13/21 at 17:45; Stop 02/13/21 at 17:46; Status DC Ketorolac Tromethamine (Toradol 15mg Vial) 15 mg 1X ONCE IVP Last administered on 02/14/21at 09:33; Start 02/14/21 at 09:15; Stop 02/14/21 at 09:19; Status DC Info (FLU VACCINE SCREEN per RX) 1 each PRN DAILY PRN MC SEE COMMENTS; Start 02/14/21 at 23:30; Status Cancel Metoprolol Tartrate (Lopressor Vial) 5 mg PRN Q5MIN PRN IVP TACHYCARDIA Last administered on 02/19/21at 09:23; Start 02/15/21 at 20:15 Acetaminophen (Tylenol) 1,000 mg 1X ONCE PO Last administered on 02/15/21at 20:24; Start 02/15/21 at 20:15; Stop 02/15/21 at 20:16; Status DC Sodium Chloride 500 ml @ 500 mls/hr 1X ONCE IV ; Start 02/15/21 at 21:30; Stop 02/15/21 at 22:29; Status DC Ipratropium [place] (Atrovent) 0.5 mg 1X ONCE NEB ; Start 02/15/21 at 22:00; Stop 02/15/21 at 22:01; Status DC Ipratropium [place] (Atrovent) 0.5 mg RTQID NEB Last administered on 02/19/21at 09:15; Start 02/16/21 at 08:00 Vancomycin HCl (Vanco Per Pharmacy) 1 each PRN DAILY PRN MC SEE COMMENTS Last a dministered on 02/16/21at 03:40; Start 02/15/21 at 21:30; Stop 02/16/21 at 11:17; Status DC Cefepime HCl (Maxipime) 1 gm Q24H IVP Last administered on 02/15/21at 23:10; Start 02/15/21 at 22:00; Stop 02/16/21 at 11:18; Status DC Metronidazole 100 ml @ 100 mls/hr Q12HR IV Last administered on 02/19/21at 09:21; Start 02/15/21 at 22:00; Stop 02/19/21 at 10:34; Status DC Diltiazem HCl 125 mg/Sodium Chloride 125 ml @ 5 mls/hr CONT PRN IV SEE I/O RECORD Last administered on 02/18/21at 00:35; Start 02/15/21 at 21:30 Vancomycin HCl 1.75 gm/Sodium Chloride 500 ml @ 250 mls/hr 1X ONCE IV Last administered on 02/15/21at 23:00; Start 02/15/21 at 22:00; Stop 02/15/21 at 23:59; Status DC Methylprednisolone Sodium Succinate (SOLU-Medrol 40MG VIAL) 30 mg DAILY IV Last administered on 02/17/21at 09:10; Start 02/16/21 at 09:00; Stop 02/18/21 at 06:48; Status DC Vancomycin HCl 1 gm/Sodium Chloride 250 ml @ 250 mls/hr Q24H IV ; Start 02/16/21 at 23:00; Stop 02/16/21 at 11:16; Status DC Vancomycin HCl (Vancomycin Trough Level) 1 each 1X ONCE MC ; Start 02/17/21 at 22:30; Stop 02/16/21 at 11:17; Status DC Cefepime HCl (Maxipime) 2 gm Q12HR IVP Last administered on 02/19/21at 09:21; Start 02/16/21 at 12:00 Linezolid/Dextrose 300 ml @ 300 mls/hr Q12HR IV Last administered on 02/19/21at 09:22; Start 02/16/21 at 12:00; Stop 02/19/21 at 10:34; Status DC Info (Tpn Per Pharmacy) 1 each PRN DAILY PRN MC SEE COMMENTS Last administered on 02/18/21at 10:17; Start 02/16/21 at 14:00 Furosemide (Lasix) 20 mg 1X ONCE IVP Last administered on 02/16/21at 15:42; Start 02/16/21 at 14:15; Stop 02/16/21 at 14:16; Status DC Potassium Phosphate 15 mmol/ Sodium Chloride 105 ml @ 52.5 mls/hr 1X ONCE IV Last administered on 02/16/21at 15:43; Start 02/16/21 at 15:00; Stop 02/16/21 at 16:59; Status DC Sodium Chloride 90 meq/Potassium Chloride 50 meq/ Potassium Phosphate 20 mmol/ Magnesium Sulfate 10 meq/Calcium Gluconate 10 meq/ Multivitamins 10 ml/Zinc/Copper/ Manganese/ Selenium 1 ml/ Total Parenteral Nutrition/Amino Acids/Dextrose/ Fat Emulsion Intravenous 1,296 ml @ 54 mls/hr TPN CONT IV Last administered on 02/16/21at 21:24; Start 02/16/21 at 22:00; Stop 02/17/21 at 21:59; Status DC Sodium Phosphate 20 mmol/Sodium Chloride 256.6667 ml @ 64.167 m... 1X ONCE IV Last administered on 02/17/21at 10:55; Start 02/17/21 at 10:00; Stop 02/17/21 at 13:59; Status DC Sodium Chloride 90 meq/Sodium Phosphate 10 mmol/ Potassium Chloride 50 meq/ Potassium Phosphate 20 mmol/ Magnesium Sulfate 5 meq/ Multivitamins 10 ml/Zinc/Copper/ Manganese/ Selenium 1 ml/ Total Parenteral Nutrition/Amino Acids/Dextrose/ Fat Emulsion Intravenous 1,296 ml @ 54 mls/hr TPN CONT IV ; Start 02/17/21 at 22:00; Stop 02/17/21 at 09:07; Status DC Furosemide (Lasix) 40 mg 1X ONCE IVP Last administered on 02/17/21at 09:12; St art 02/17/21 at 09:15; Stop 02/17/21 at 09:16; Status DC Sodium Phosphate 20 mmol/Sodium Chloride 256.6667 ml @ 64.167 m... 1X ONCE IV ; Start 02/17/21 at 09:15; Stop 02/17/21 at 13:14; Status UNV Sodium Chloride 90 meq/Sodium Phosphate 10 mmol/ Potassium Chloride 50 meq/ Potassium Phosphate 20 mmol/ Magnesium Sulfate 5 meq/ Multivitamins 10 ml/Zinc/Copper/ Manganese/ Selenium 1 ml/ Total Parenteral Nutrition/Amino Acids/Dextrose/ Fat Emulsion Intravenous 1,080 ml @ 45 mls/hr TPN CONT IV Last administered on 02/17/21at 21:12; Start 02/17/21 at 22:00; Stop 02/18/21 at 21:59; Status DC Morphine Sulfate (Morphine Sulfate) 1 mg 1X ONCE IVP Last administered on 02/17/21at 11:20; Start 02/17/21 at 11:15; Stop 02/17/21 at 11:16; Status DC Lorazepam (Ativan Inj) 1 mg PRN Q4HRS PRN IVP ANXIETY / AGITATION Last administered on 02/18/21at 14:31; Start 02/17/21 at 11:15; Stop 02/18/21 at 14:43; Status DC Epinephrine (S2 Racepinephrine) 0.5 ml 1X ONCE NEB Last administered on 02/17/21at 15:29; Start 02/17/21 at 14:15; Stop 02/17/21 at 14:16; Status DC Furosemide (Lasix) 20 mg 1X ONCE IVP Last administered on 02/18/21at 07:09; Start 02/18/21 at 07:00; Stop 02/18/21 at 07:01; Status DC Albuterol Sulfate (Ventolin Neb Soln) 2.5 mg PRN Q4HRS PRN NEB WHEEZING; Start 02/18/21 at 06:45 Methylprednisolone Sodium Succinate (SOLU-Medrol 125MG VIAL) 125 mg 1X ONCE IV Last administered on 02/18/21at 08:07; Start 02/18/21 at 07:00; Stop 02/18/21 at 07:01; Status DC Methylprednisolone Sodium Succinate (SOLU-Medrol 40MG VIAL) 40 mg Q12HR IV Last administered on 02/19/21at 09:29; Start 02/18/21 at 09:00 Sodium Phosphate 15 mmol/Sodium Chloride 105 ml @ 105 mls/hr 1X ONCE IV Last administered on 02/18/21at 09:20; Start 02/18/21 at 10:00; Stop 02/18/21 at 10:59; Status DC Sodium Acetate 90 meq/Sodium Phosphate 20 mmol/ Potassium Chloride 30 meq/ Potassium Phosphate 20 mmol/ Multivitamins 10 ml/Zinc/Copper/ Manganese/ Selenium 1 ml/ Total Parenteral Nutrition/Amino Acids/Dextrose/ Fat Emulsion Intravenous 1,080 ml @ 45 mls/hr TPN CONT IV Last administered on 02/18/21at 21:35; Start 02/18/21 at 22:00; Stop 02/19/21 at 21:59 Budesonide (Pulmicort) 0.5 mg 1X ONCE NEB Last administered on 02/18/21at 11:39; Start 02/18/21 at 11:15; Stop 02/18/21 at 11:16; Status DC Budesonide (Pulmicort) 0.5 mg RTBID NEB Last administered on 02/19/21at 09:15; Start 02/18/21 at 20:00 Insulin Human Lispro (HumaLOG) 0-7 UNITS Q6HRS SQ Last administered on 02/19/21at 06:10; Start 02/18/21 at 12:00 Dextrose (Dextrose 50%-Water Syringe) 12.5 gm PRN Q15MIN PRN IV SEE COMMENTS; Start 02/18/21 at 12:00 Hydralazine HCl (Apresoline Inj) 10 mg PRN Q4HRS PRN IVP ELEVATED BP, SEE CO MMENTS Last administered on 02/19/21at 08:27; Start 02/18/21 at 12:30 Fentanyl Citrate (Fentanyl 2ml Vial) 100 mcg STK-MED ONCE .ROUTE ; Start 02/19/21 at 08:01; Stop 02/19/21 at 08:02; Status DC Fentanyl Citrate (Fentanyl 2ml Vial) 50 mcg 1X ONCE IVP Last administered on 02/19/21at 08:06; Start 02/19/21 at 08:15; Stop 02/19/21 at 08:16; Status DC Furosemide (Lasix) 40 mg DAILY IVP ; Start 02/19/21 at 11:45 Active Scripts Active Reported Vitamin B12 (Cyanocobalamin (Vitamin B-12)) 2,500 Mcg Tablet 500 Mg PO BID Nexium Capsule (Esomeprazole Magnesium) 40 Mg Capsule.dr 1 Cap PO BID Calcium 600 + Vit D 800 Tab (Calcium Carbonate/Vitamin D3) 1 Each Tablet 1 Tab PO BID 30 Days Benefiber (Wheat Dextrin) 1 Each Powd.pack 1 Each PO DAILY Lisinopril 10 Mg Tablet 1 Tab PO DAILY Leflunomide 10 Mg Tablet 10 Mg PO DAILY Prednisone 2.5 Mg Tablet 5 Mg PO DAILY Metoprolol Tartrate 25 Mg Tablet 1 Tab PO DAILY Hydrocodone-Apap 5-325 (Hydrocodone Bit/Acetaminophen) 1 Tab Tablet 1 Tab PO PRN BID PRN Gabapentin 100 Mg Capsule 100 Mg PO PRN BID PRN Folic Acid 0.8 Mg Tablet 3 Mg PO DAILY Cymbalta (Duloxetine Hcl) 30 Mg Capsule.dr 1 Cap PO DAILY Prolia (Denosumab) 60 Mg/1 Ml Disp.syrin 1 Syr SQ [id number] 1 Days Celexa (Citalopram Hydrobromide) 10 Mg Tablet 1 Tab PO DAILY Alprazolam 0.25 Mg Tablet 0.25 Mg PO PRN DAILY PRN Allergies Allergies: Coded Allergies: adhesive tape (Verified Allergy, Intermediate, 02/13/21) ROS Review of System As per HPI, rest of the ROS is negative Obtained from nursing and Physical Exam Physical Exam GENERAL In chair, asleep, Recd IV fentanyl HEENT: Normocephalic, atraumatic. Anicteric. OM moist NECK: Supple. LUNGS: Decreased at bases, Non labored ABD Soft, drains serosang, dressing to incision EXT Mild LE edema , swelling + hands HEART: S1S2 NEURO : grossly nonfocal. Generalized weakness Barraza in place , No CVA or SP tenderness Vital Signs Vital Signs Date Time Temp Pulse Resp B/P (MAP) Pulse Ox O2 Delivery O2 Flow Rate FiO2 02/19/21 11:00 145 22 138/78 (98) 95 Nasal Cannula 3.0 02/19/21 07:00 98.1 98.1 Assessment & Plan HyperKalemia - Glucose elevated, K in TPN, holding TPN now, Monitor MARILEE at presentation- Cr 1.3 resolved .BUN in 60's stable, likely sec to steroids . Some decrease in UOp today per nursing , Flush Barraza , agree with IV Lasix , Monitor Hematuria - UA with RBC's , Barraza sample, No e/o UTI ; ? traumatic, flush, Monitor Anemia- decreasing Hgb, defer to primary Acute hypoxemic respiratory failure, multifactorial- Abnormal x-ray A. fib with rapid ventricular response Status post large ventral hernia repair on 02/13. Hypertension BP stable Labs Labs Laboratory Tests Test 02/18/21 07:15 02/18/21 12:19 02/18/21 18:27 02/18/21 23:38 Sodium Level 138 mmol/L (136-145) Potassium Level 4.8 mmol/L (3.5-5.1) Chloride Level 108 mmol/L (98-107) Carbon Dioxide Level 20 mmol/L (21-32) Anion Gap 10 (6-14) Blood Urea Nitrogen 47 mg/dL (7-20) Creatinine 1.0 mg/dL (0.6-1.0) Estimated GFR (Cockcroft-Gault) 53.8 Glucose Level 265 mg/dL (70-99) Calcium Level 7.3 mg/dL (8.5-10.1) Phosphorus Level 2.4 mg/dL (2.6-4.7) Magnesium Level 2.9 mg/dL (1.8-2.4) Glucose (Fingerstick) 322 mg/dL (70-99) 286 mg/dL (70-99) 239 mg/dL (70-99) Test 02/19/21 06:00 02/19/21 06:06 02/19/21 09:49 White Blood Count 15.9 x10^3/uL (4.0-11.0) Red Blood Count 2.96 x10^6/uL (3.50-5.40) Hemoglobin 8.6 g/dL (12.0-15.5) Hematocrit 26.9 % (36.0-47.0) Mean Corpuscular Volume 91 fL (79-100) Mean Corpuscular Hemoglobin 29 pg (25-35) Mean Corpuscular Hemoglobin Concent 32 g/dL (31-37) Red Cell Distribution Width 16.5 % (11.5-14.5) Platelet Count 266 x10^3/uL (140-400) Neutrophils (%) (Auto) 84 % (31-73) Lymphocytes (%) (Auto) 3 % (24-48) Monocytes (%) (Auto) 13 % (0-9) Eosinophils (%) (Auto) 0 % (0-3) Basophils (%) (Auto) 0 % (0-3) Neutrophils # (Auto) 13.3 x10^3/uL (1.8-7.7) Lymphocytes # (Auto) 0.4 x10^3/uL (1.0-4.8) Monocytes # (Auto) 2.0 x10^3/uL (0.0-1.1) Eosinophils # (Auto) 0.0 x10^3/uL (0.0-0.7) Basophils # (Auto) 0.0 x10^3/uL (0.0-0.2) Segmented Neutrophils % 84 % (35-66) Band Neutrophils % 8 % (0-9) Lymphocytes % 5 % (24-48) Monocytes % 3 % (0-10) Platelet Estimate Adequate (ADEQUATE) Sodium Level 142 mmol/L (136-145) Potassium Level 5.8 mmol/L (3.5-5.1) Chloride Level 112 mmol/L (98-107) Carbon Dioxide Level 20 mmol/L (21-32) Anion Gap 10 (6-14) Blood Urea Nitrogen 61 mg/dL (7-20) Creatinine 1.0 mg/dL (0.6-1.0) Estimated GFR (Cockcroft-Gault) 53.8 BUN/Creatinine Ratio 61 (6-20) Glucose Level 286 mg/dL (70-99) Calcium Level 7.1 mg/dL (8.5-10.1) Phosphorus Level 2.8 mg/dL (2.6-4.7) Magnesium Level 2.8 mg/dL (1.8-2.4) Total Bilirubin 0.3 mg/dL (0.2-1.0) Aspartate Amino Transf (AST/SGOT) 12 U/L (15-37) Alanine Aminotransferase (ALT/SGPT) 21 U/L (14-59) Alkaline Phosphatase 67 U/L (46-116) Total Protein 6.3 g/dL (6.4-8.2) Albumin 1.9 g/dL (3.4-5.0) Albumin/Globulin Ratio 0.4 (1.0-1.7) Triglycerides Level 319 mg/dL (0-150) Glucose (Fingerstick) 259 mg/dL (70-99) Urine Collection Type Unknown Urine Color Brown Urine Clarity Cloudy Urine pH (<5.0-8.0) Urine Specific [place] (1.000-1.030) Urine Protein mg/dL (NEG-TRACE) Urine Glucose (UA) mg/dL (NEG) Urine Ketones (Stick) mg/dL (NEG) Urine Blood (NEG) Urine Nitrite (NEG) Urine Bilirubin (NEG) Urine Urobilinogen Dipstick mg/dL (0.2 mg/dL) Urine Leukocyte Esterase (NEG) Urine RBC >40 /HPF (0-2) Urine WBC 1-4 /HPF (0-4) Urine Squamous Epithelial Cells Few /LPF Urine Bacteria 0 /HPF (0-FEW) Urine Yeast Present /HPF Laboratory Tests Test 02/18/21 12:19 02/18/21 18:27 02/18/21 23:38 02/19/21 06:00 Glucose (Fingerstick) 322 mg/dL (70-99) 286 mg/dL (70-99) 239 mg/dL (70-99) White Blood Count 15.9 x10^3/uL (4.0-11.0) Red Blood Count 2.96 x10^6/uL (3.50-5.40) Hemoglobin 8.6 g/dL (12.0-15.5) Hematocrit 26.9 % (36.0-47.0) Mean Corpuscular Volume 91 fL (79-100) Mean Corpuscular Hemoglobin 29 pg (25-35) Mean Corpuscular Hemoglobin Concent 32 g/dL (31-37) Red Cell Distribution Width 16.5 % (11.5-14.5) Platelet Count 266 x10^3/uL (140-400) Neutrophils (%) (Auto) 84 % (31-73) Lymphocytes (%) (Auto) 3 % (24-48) Monocytes (%) (Auto) 13 % (0-9) Eosinophils (%) (Auto) 0 % (0-3) Basophils (%) (Auto) 0 % (0-3) Neutrophils # (Auto) 13.3 x10^3/uL (1.8-7.7) Lymphocytes # (Auto) 0.4 x10^3/uL (1.0-4.8) Monocytes # (Auto) 2.0 x10^3/uL (0.0-1.1) Eosinophils # (Auto) 0.0 x10^3/uL (0.0-0.7) Basophils # (Auto) 0.0 x10^3/uL (0.0-0.2) Segmented Neutrophils % 84 % (35-66) Band Neutrophils % 8 % (0-9) Lymphocytes % 5 % (24-48) Monocytes % 3 % (0-10) Platelet Estimate Adequate (ADEQUATE) Sodium Level 142 mmol/L (136-145) Potassium Level 5.8 mmol/L (3.5-5.1) Chloride Level 112 mmol/L (98-107) Carbon Dioxide Level 20 mmol/L (21-32) Anion Gap 10 (6-14) Blood Urea Nitrogen 61 mg/dL (7-20) Creatinine 1.0 mg/dL (0.6-1.0) Estimated GFR (Cockcroft-Gault) 53.8 BUN/Creatinine Ratio 61 (6-20) Glucose Level 286 mg/dL (70-99) Calcium Level 7.1 mg/dL (8.5-10.1) Phosphorus Level 2.8 mg/dL (2.6-4.7) Magnesium Level 2.8 mg/dL (1.8-2.4) Total Bilirubin 0.3 mg/dL (0.2-1.0) Aspartate Amino Transf (AST/SGOT) 12 U/L (15-37) Alanine Aminotransferase (ALT/SGPT) 21 U/L (14-59) Alkaline Phosphatase 67 U/L (46-116) Total Protein 6.3 g/dL (6.4-8.2) Albumin 1.9 g/dL (3.4-5.0) Albumin/Globulin Ratio 0.4 (1.0-1.7) Triglycerides Level 319 mg/dL (0-150) Test 02/19/21 06:06 02/19/21 09:49 Glucose (Fingerstick) 259 mg/dL (70-99) Urine Collection Type Unknown Urine Color Brown Urine Clarity Cloudy Urine pH (<5.0-8.0) Urine Specific [place] (1.000-1.030) Urine Protein mg/dL (NEG-TRACE) Urine Glucose (UA) mg/dL (NEG) Urine Ketones (Stick) mg/dL (NEG) Urine Blood (NEG) Urine Nitrite (NEG) Urine Bilirubin (NEG) Urine Urobilinogen Dipstick mg/dL (0.2 mg/dL) Urine Leukocyte Esterase (NEG) Urine RBC >40 /HPF (0-2) Urine WBC 1-4 /HPF (0-4) Urine Squamous Epithelial Cells Few /LPF Urine Bacteria 0 /HPF (0-FEW) Urine Yeast Present /HPF Review All relevant outside records, renal labs, imaging studies, telemetry/EKG's were reviewed. Images Images XR CHEST 1V Clinical Indication: Reason: SOA Comparison: AP chest, prior day. Findings: Stable right PICC. Atherosclerotic thoracic aorta. The cardiomediastinal silhouette is stable. There are low lung volumes. Bilateral interstitial opacities are unchanged. There is no pneumothorax. No pleural effusion is appreciated. No acute bone abnormality. There are stable left axillary surgical clips. IMPRESSION: Bilateral interstitial opacities and low lung volumes are unchanged. ARMINDA LYMAN MD Feb 19, 2021 12:25
[2021-02-19] MEDS: FUROSEMIDE 40 MG/4 ML VIAL. IVP SCH (12:34)
[2021-02-19] MEDS ORDERED: DIGOXIN IV 500 MCG/2 ML AMPUL. IV ONE (14:45)
--- NOTE | 2021-02-19 16:06 | RAD ---
EXAM: XR CHEST 1V 02/19/2021 12:49 PM CLINICAL INDICATION: Right shoulder pain and decreased COMPARISON: Chest radiograph 02/17/2021 TECHNIQUE: AP upright view of the chest FINDINGS: Right PICC with tip at the superior cavoatrial junction is unchanged. The heart is at the upper limit normal in size. Interstitial opacities are mildly increased in the mid right lung and unc hanged elsewhere. No pleural effusion or pneumothorax. Surgical clips are seen in the left axillary r egion. IMPRESSION: Increased interstitial opacities in the right lung. Electronically signed by: Tamar Borrego MD (02/19/2021 4:03 PM) [id number]
[2021-02-19] MEDS: IV NORMAL SALINE 1000ML BAG 1,000 ML IV SCH (17:15)
[2021-02-19] MEDS: ENOXAPARIN 40 MG/0.4 ML SYRINGE. SQ SCH (18:16)
[2021-02-19] MEDS: METOPROLOL IV PUSH 5 MG/5 ML VIAL. IVP SCH (18:17)
[2021-02-19] MEDS: ALBUTEROL SULFATE 2.5 MG/3 ML NEBU. NEB PRN (20:33)
[2021-02-19] MEDS: FAMOTIDINE 20 MG/2 ML VIAL IVP SCH (21:02)
[2021-02-19] MEDS ORDERED: AMINO ACID IV SCH (22:00)
[2021-02-19] MEDS ORDERED: DEXTROSE 70% IV SCH (22:00)
[2021-02-19] MEDS ORDERED: TOTAL PARENTERAL NUTRITION IV SCH (22:00)
[2021-02-19] MEDS ORDERED: [UNRECOGNIZED DRUG - OTHER] IV SCH (22:00)
[2021-02-20] MEDS: INSULIN LISPRO 300 UNITS/3 ML VIAL. SQ SCH ×4 (00:29→18:05)
[2021-02-20] MEDS: hydrALAZINE 20 MG/ML VIAL. IVP PRN ×3 (02:56→16:49)
[2021-02-20 03:00] VITALS: BP 151/47
[2021-02-20] MEDS: METOPROLOL IV PUSH 5 MG/5 ML VIAL. IVP SCH ×5 (04:25→22:47)
[2021-02-20 04:28] LABS: BASE EXCESS ABG -7 mmol/L (-3-3); HCO3 ABG 18 mmol/L (21-28); PCO2 ABG 30 mmHg (35-46); PO2 ABG 72 mmHg (65-108); SAT O2 ABG 93 % (92-99)
[2021-02-20 04:48] LABS: FIO2 ABG 32
--- NOTE | 2021-02-20 05:30 | NUR ---
Patient with increased restlessness, moaning. Replies "yes" to pain but does not explain pain. Grabs at wires and personal. Moved from chair back to bed and remains anxious. Notified Dr. Portillo. Orders received for Dilauded. Free text placed for order. Bolus dose given per [employer].
[2021-02-20 06:39] LABS: BASO % 0 % (0-3); EOS % 0 % (0-3); HEMATOCRIT 25.4 % (36.0-47.0); HEMOGLOBIN 8.2 g/dL (12.0-15.5); LYMPH # 0.3 x10^3/uL (1.0-4.8); LYMPH % 2 % (24-48); MEAN CORPUSCULAR HEMOGLOBIN 29 pg (25-35); MEAN CORPUSCULAR HGB CONC 32 g/dL (31-37); MEAN CORPUSCULAR VOLUME 91 fL (79-100); MONO # 1.4 x10^3/uL (0.0-1.1); MONO % 8 % (0-9); NEUT # 15.5 x10^3/uL (1.8-7.7); NEUT % 90 % (31-73); PLATELET COUNT 255 x10^3/uL (140-400); RED BLOOD COUNT 2.79 x10^6/uL (3.50-5.40); RED CELL DISTRIBUTION WIDTH 16.6 % (11.5-14.5); WHITE BLOOD COUNT 17.3 x10^3/uL (4.0-11.0)
[2021-02-20 06:46] LABS: MAGNESIUM 2.7 mg/dL (1.8-2.4); PHOSPHORUS 2.9 mg/dL (2.6-4.7)
[2021-02-20 06:47] LABS: ALBUMIN/GLOBULIN RATIO 0.5 (1.0-1.7); CALCIUM 6.9 mg/dL (8.5-10.1); GFR 53.8; POTASSIUM 4.7 mmol/L (3.5-5.1); TOTAL BILIRUBIN 0.6 mg/dL (0.2-1.0); TOTAL PROTEIN 6.2 g/dL (6.4-8.2)
[2021-02-20 07:00] VITALS: BP 198/68
[2021-02-20] MEDS: METOPROLOL IV PUSH 5 MG/5 ML VIAL. IVP PRN (07:36)
[2021-02-20] MEDS ORDERED: HYDROmorphone 2 MG/ML VIAL IVP PRN (08:30)
--- NOTE | 2021-02-20 08:30 | PDOC ---
SURGICAL PROGRESS NOTE DATE: 02/20/21 TIME: 08:28 Subjective opens eyes on exam, moans does not appropriately answer questions Vital Signs Vital Signs Date Time Temp Pulse Resp B/P (MAP) Pulse Ox O2 Delivery O2 Flow Rate FiO2 02/20/21 07:36 102 205/75 02/20/21 07:00 98.9 18 98 Nasal Cannula 3.0 98.9 I&O Intake and Output 02/20/21 07:00 Intake Total 300.6 ml Output Total 2310 ml Balance -2009.4 ml IV Total 300.6 ml Output Urine Total 2210 ml Drainage Total 100 ml PATIENT HAS A GARCIA: Yes (clear urine ) General: Other (confusion, sedation ) Abdomen: Soft, Other (incision intact, drains serosang) Labs Laboratory Tests Test 02/18/21 12:19 02/18/21 18:27 02/18/21 23:38 02/19/21 06:00 Glucose (Fingerstick) 322 mg/dL (70-99) 286 mg/dL (70-99) 239 mg/dL (70-99) White Blood Count 15.9 x10^3/uL (4.0-11.0) Red Blood Count 2.96 x10^6/uL (3.50-5.40) Hemoglobin 8.6 g/dL (12.0-15.5) Hematocrit 26.9 % (36.0-47.0) Mean Corpuscular Volume 91 fL (79-100) Mean Corpuscular Hemoglobin 29 pg (25-35) Mean Corpuscular Hemoglobin Concent 32 g/dL (31-37) Red Cell Distribution Width 16.5 % (11.5-14.5) Platelet Count 266 x10^3/uL (140-400) Neutrophils (%) (Auto) 84 % (31-73) Lymphocytes (%) (Auto) 3 % (24-48) Monocytes (%) (Auto) 13 % (0-9) Eosinophils (%) (Auto) 0 % (0-3) Basophils (%) (Auto) 0 % (0-3) Neutrophils # (Auto) 13.3 x10^3/uL (1.8-7.7) Lymphocytes # (Auto) 0.4 x10^3/uL (1.0-4.8) Monocytes # (Auto) 2.0 x10^3/uL (0.0-1.1) Eosinophils # (Auto) 0.0 x10^3/uL (0.0-0.7) Basophils # (Auto) 0.0 x10^3/uL (0.0-0.2) Segmented Neutrophils % 84 % (35-66) Band Neutrophils % 8 % (0-9) Lymphocytes % 5 % (24-48) Monocytes % 3 % (0-10) Platelet Estimate Adequate (ADEQUATE) Sodium Level 142 mmol/L (136-145) Potassium Level 5.8 mmol/L (3.5-5.1) Chloride Level 112 mmol/L (98-107) Carbon Dioxide Level 20 mmol/L (21-32) Anion Gap 10 (6-14) Blood Urea Nitrogen 61 mg/dL (7-20) Creatinine 1.0 mg/dL (0.6-1.0) Estimated GFR (Cockcroft-Gault) 53.8 BUN/Creatinine Ratio 61 (6-20) Glucose Level 286 mg/dL (70-99) Calcium Level 7.1 mg/dL (8.5-10.1) Phosphorus Level 2.8 mg/dL (2.6-4.7) Magnesium Level 2.8 mg/dL (1.8-2.4) Total Bilirubin 0.3 mg/dL (0.2-1.0) Aspartate Amino Transf (AST/SGOT) 12 U/L (15-37) Alanine Aminotransferase (ALT/SGPT) 21 U/L (14-59) Alkaline Phosphatase 67 U/L (46-116) Total Protein 6.3 g/dL (6.4-8.2) Albumin 1.9 g/dL (3.4-5.0) Albumin/Globulin Ratio 0.4 (1.0-1.7) Triglycerides Level 319 mg/dL (0-150) Test 02/19/21 06:06 02/19/21 09:49 02/19/21 11:50 02/19/21 12:31 Glucose (Fingerstick) 259 mg/dL (70-99) 250 mg/dL (70-99) Urine Collection Type Unknown Urine Color Brown Urine Clarity Cloudy Urine pH (<5.0-8.0) Urine Specific [place] (1.000-1.030) Urine Protein mg/dL (NEG-TRACE) Urine Glucose (UA) mg/dL (NEG) Urine Ketones (Stick) mg/dL (NEG) Urine Blood (NEG) Urine Nitrite (NEG) Urine Bilirubin (NEG) Urine Urobilinogen Dipstick mg/dL (0.2 mg/dL) Urine Leukocyte Esterase (NEG) Urine RBC >40 /HPF (0-2) Urine WBC 1-4 /HPF (0-4) Urine Squamous Epithelial Cells Few /LPF Urine Bacteria 0 /HPF (0-FEW) Urine Yeast Present /HPF O2 Saturation 95 % (92-99) Arterial Blood pH 7.29 (7.35-7.45) Arterial Blood pCO2 at Patient Temp 36 mmHg (35-46) Arterial Blood pO2 at Patient Temp 83 mmHg (65-108) Arterial Blood HCO3 17 mmol/L (21-28) Arterial Blood Base Excess -9 mmol/L (-3-3) FiO2 36 Test 02/19/21 13:28 02/19/21 18:14 02/20/21 00:25 02/20/21 04:23 Creatine Kinase 219 U/L (26-192) Glucose (Fingerstick) 135 mg/dL (70-99) 234 mg/dL (70-99) O2 Saturation 93 % (92-99) Arterial Blood pH 7.39 (7.35-7.45) Arterial Blood pCO2 at Patient Temp 30 mmHg (35-46) Arterial Blood pO2 at Patient Temp 72 mmHg (65-108) Arterial Blood HCO3 18 mmol/L (21-28) Arterial Blood Base Excess -7 mmol/L (-3-3) FiO2 32 Test 02/20/21 06:10 02/20/21 06:17 White Blood Count 17.3 x10^3/uL (4.0-11.0) Red Blood Count 2.79 x10^6/uL (3.50-5.40) Hemoglobin 8.2 g/dL (12.0-15.5) Hematocrit 25.4 % (36.0-47.0) Mean Corpuscular Volume 91 fL (79-100) Mean Corpuscular Hemoglobin 29 pg (25-35) Mean Corpuscular Hemoglobin Concent 32 g/dL (31-37) Red Cell Distribution Width 16.6 % (11.5-14.5) Platelet Count 255 x10^3/uL (140-400) Neutrophils (%) (Auto) 90 % (31-73) Lymphocytes (%) (Auto) 2 % (24-48) Monocytes (%) (Auto) 8 % (0-9) Eosinophils (%) (Auto) 0 % (0-3) Basophils (%) (Auto) 0 % (0-3) Neutrophils # (Auto) 15.5 x10^3/uL (1.8-7.7) Lymphocytes # (Auto) 0.3 x10^3/uL (1.0-4.8) Monocytes # (Auto) 1.4 x10^3/uL (0.0-1.1) Eosinophils # (Auto) 0.0 x10^3/uL (0.0-0.7) Basophils # (Auto) 0.0 x10^3/uL (0.0-0.2) Sodium Level 149 mmol/L (136-145) Potassium Level 4.7 mmol/L (3.5-5.1) Chloride Level 116 mmol/L (98-107) Carbon Dioxide Level 23 mmol/L (21-32) Anion Gap 10 (6-14) Blood Urea Nitrogen 61 mg/dL (7-20) Creatinine 1.0 mg/dL (0.6-1.0) Estimated GFR (Cockcroft-Gault) 53.8 BUN/Creatinine Ratio 61 (6-20) Glucose Level 268 mg/dL (70-99) Calcium Level 6.9 mg/dL (8.5-10.1) Phosphorus Level 2.9 mg/dL (2.6-4.7) Magnesium Level 2.7 mg/dL (1.8-2.4) Total Bilirubin 0.6 mg/dL (0.2-1.0) Aspartate Amino Transf (AST/SGOT) 22 U/L (15-37) Alanine Aminotransferase (ALT/SGPT) 26 U/L (14-59) Alkaline Phosphatase 74 U/L (46-116) Total Protein 6.2 g/dL (6.4-8.2) Albumin 2.0 g/dL (3.4-5.0) Albumin/Globulin Ratio 0.5 (1.0-1.7) Glucose (Fingerstick) 219 mg/dL (70-99) Laboratory Tests Test 02/19/21 09:49 02/19/21 11:50 02/19/21 12:31 02/19/21 13:28 Urine Collection Type Unknown Urine Color Brown Urine Clarity Cloudy Urine pH (<5.0-8.0) Urine Specific [place] (1.000-1.030) Urine Protein mg/dL (NEG-TRACE) Urine Glucose (UA) mg/dL (NEG) Urine Ketones (Stick) mg/dL (NEG) Urine Blood (NEG) Urine Nitrite (NEG) Urine Bilirubin (NEG) Urine Urobilinogen Dipstick mg/dL (0.2 mg/dL) Urine Leukocyte Esterase (NEG) Urine RBC >40 /HPF (0-2) Urine WBC 1-4 /HPF (0-4) Urine Squamous Epithelial Cells Few /LPF Urine Bacteria 0 /HPF (0-FEW) Urine Yeast Present /HPF O2 Saturation 95 % (92-99) Arterial Blood pH 7.29 (7.35-7.45) Arterial Blood pCO2 at Patient Temp 36 mmHg (35-46) Arterial Blood pO2 at Patient Temp 83 mmHg (65-108) Arterial Blood HCO3 17 mmol/L (21-28) Arterial Blood Base Excess -9 mmol/L (-3-3) FiO2 36 Glucose (Fingerstick) 250 mg/dL (70-99) Creatine Kinase 219 U/L (26-192) Test 02/19/21 18:14 02/20/21 00:25 02/20/21 04:23 02/20/21 06:10 Glucose (Fingerstick) 135 mg/dL (70-99) 234 mg/dL (70-99) O2 Saturation 93 % (92-99) Arterial Blood pH 7.39 (7.35-7.45) Arterial Blood pCO2 at Patient Temp 30 mmHg (35-46) Arterial Blood pO2 at Patient Temp 72 mmHg (65-108) Arterial Blood HCO3 18 mmol/L (21-28) Arterial Blood Base Excess -7 mmol/L (-3-3) FiO2 32 White Blood Count 17.3 x10^3/uL (4.0-11.0) Red Blood Count 2.79 x10^6/uL (3.50-5.40) Hemoglobin 8.2 g/dL (12.0-15.5) Hematocrit 25.4 % (36.0-47.0) Mean Corpuscular Volume 91 fL (79-100) Mean Corpuscular Hemoglobin 29 pg (25-35) Mean Corpuscular Hemoglobin Concent 32 g/dL (31-37) Red Cell Distribution Width 16.6 % (11.5-14.5) Platelet Count 255 x10^3/uL (140-400) Neutrophils (%) (Auto) 90 % (31-73) Lymphocytes (%) (Auto) 2 % (24-48) Monocytes (%) (Auto) 8 % (0-9) Eosinophils (%) (Auto) 0 % (0-3) Basophils (%) (Auto) 0 % (0-3) Neutrophils # (Auto) 15.5 x10^3/uL (1.8-7.7) Lymphocytes # (Auto) 0.3 x10^3/uL (1.0-4.8) Monocytes # (Auto) 1.4 x10^3/uL (0.0-1.1) Eosinophils # (Auto) 0.0 x10^3/uL (0.0-0.7) Basophils # (Auto) 0.0 x10^3/uL (0.0-0.2) Sodium Level 149 mmol/L (136-145) Potassium Level 4.7 mmol/L (3.5-5.1) Chloride Level 116 mmol/L (98-107) Carbon Dioxide Level 23 mmol/L (21-32) Anion Gap 10 (6-14) Blood Urea Nitrogen 61 mg/dL (7-20) Creatinine 1.0 mg/dL (0.6-1.0) Estimated GFR (Cockcroft-Gault) 53.8 BUN/Creatinine Ratio 61 (6-20) Glucose Level 268 mg/dL (70-99) Calcium Level 6.9 mg/dL (8.5-10.1) Phosphorus Level 2.9 mg/dL (2.6-4.7) Magnesium Level 2.7 mg/dL (1.8-2.4) Total Bilirubin 0.6 mg/dL (0.2-1.0) Aspartate Amino Transf (AST/SGOT) 22 U/L (15-37) Alanine Aminotransferase (ALT/SGPT) 26 U/L (14-59) Alkaline Phosphatase 74 U/L (46-116) Total Protein 6.2 g/dL (6.4-8.2) Albumin 2.0 g/dL (3.4-5.0) Albumin/Globulin Ratio 0.5 (1.0-1.7) Test 02/20/21 06:17 Glucose (Fingerstick) 219 mg/dL (70-99) Assessment/Plan 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
--- NOTE | 2021-02-20 08:32 | PDOC ---
Infectious Disease Note Subjective: Subjective Patient sleepy arousable does not answer most of the questions Unable to take anything p.o. Remains afebrile Discussed with RN at bedside Vital Signs: Vital Signs Vital Signs Date Time Temp Pulse Resp B/P (MAP) Pulse Ox O2 Delivery O2 Flow Rate FiO2 02/20/21 07:36 102 205/75 02/20/21 07:00 98.9 18 98 Nasal Cannula 3.0 98.9 Physical Exam: PHYSICAL EXAM GENERAL: Sleepy, briefly arouses, does not answer any questions, HEENT: Normocephalic, atraumatic. Anicteric. Dry mouth NECK: Supple. No JVD. LUNGS: Rales present + for wheezing HEART: Irregularly irregular no murmurs appreciated ABDOMEN: Obese ,mildly distended, binder in place, not taken down, intact dry Hypoactive bowel sounds [address] EXTREMITIES mild edema present, no cyanosis MUSCULOSKELETAL: No joint swelling. No decrease in range of motion. CENTRAL NERVOUS SYSTEM: Sleepy, arousable does not answer any questions PSYCHIATRIC: Cooperative, sleepy PICC line clean Medications: Inpatient Meds: Medications reviewed. Labs: Lab Laboratory Tests Test 02/19/21 09:49 02/19/21 11:50 02/19/21 12:31 02/19/21 13:28 Urine Collection Type Unknown Urine Color Brown Urine Clarity Cloudy Urine pH (<5.0-8.0) Urine Specific [place] (1.000-1.030) Urine Protein mg/dL (NEG-TRACE) Urine Glucose (UA) mg/dL (NEG) Urine Ketones (Stick) mg/dL (NEG) Urine Blood (NEG) Urine Nitrite (NEG) Urine Bilirubin (NEG) Urine Urobilinogen Dipstick mg/dL (0.2 mg/dL) Urine Leukocyte Esterase (NEG) Urine RBC >40 /HPF (0-2) Urine WBC 1-4 /HPF (0-4) Urine Squamous Epithelial Cells Few /LPF Urine Bacteria 0 /HPF (0-FEW) Urine Yeast Present /HPF O2 Saturation 95 % (92-99) Arterial Blood pH 7.29 (7.35-7.45) Arterial Blood pCO2 at Patient Temp 36 mmHg (35-46) Arterial Blood pO2 at Patient Temp 83 mmHg (65-108) Arterial Blood HCO3 17 mmol/L (21-28) Arterial Blood Base Excess -9 mmol/L (-3-3) FiO2 36 Glucose (Fingerstick) 250 mg/dL (70-99) Creatine Kinase 219 U/L (26-192) Test 02/19/21 18:14 02/20/21 00:25 02/20/21 04:23 02/20/21 06:10 Glucose (Fingerstick) 135 mg/dL (70-99) 234 mg/dL (70-99) O2 Saturation 93 % (92-99) Arterial Blood pH 7.39 (7.35-7.45) Arterial Blood pCO2 at Patient Temp 30 mmHg (35-46) Arterial Blood pO2 at Patient Temp 72 mmHg (65-108) Arterial Blood HCO3 18 mmol/L (21-28) Arterial Blood Base Excess -7 mmol/L (-3-3) FiO2 32 White Blood Count 17.3 x10^3/uL (4.0-11.0) Red Blood Count 2.79 x10^6/uL (3.50-5.40) Hemoglobin 8.2 g/dL (12.0-15.5) Hematocrit 25.4 % (36.0-47.0) Mean Corpuscular Volume 91 fL (79-100) Mean Corpuscular Hemoglobin 29 pg (25-35) Mean Corpuscular Hemoglobin Concent 32 g/dL (31-37) Red Cell Distribution Width 16.6 % (11.5-14.5) Platelet Count 255 x10^3/uL (140-400) Neutrophils (%) (Auto) 90 % (31-73) Lymphocytes (%) (Auto) 2 % (24-48) Monocytes (%) (Auto) 8 % (0-9) Eosinophils (%) (Auto) 0 % (0-3) Basophils (%) (Auto) 0 % (0-3) Neutrophils # (Auto) 15.5 x10^3/uL (1.8-7.7) Lymphocytes # (Auto) 0.3 x10^3/uL (1.0-4.8) Monocytes # (Auto) 1.4 x10^3/uL (0.0-1.1) Eosinophils # (Auto) 0.0 x10^3/uL (0.0-0.7) Basophils # (Auto) 0.0 x10^3/uL (0.0-0.2) Sodium Level 149 mmol/L (136-145) Potassium Level 4.7 mmol/L (3.5-5.1) Chloride Level 116 mmol/L (98-107) Carbon Dioxide Level 23 mmol/L (21-32) Anion Gap 10 (6-14) Blood Urea Nitrogen 61 mg/dL (7-20) Creatinine 1.0 mg/dL (0.6-1.0) Estimated GFR (Cockcroft-Gault) 53.8 BUN/Creatinine Ratio 61 (6-20) Glucose Level 268 mg/dL (70-99) Calcium Level 6.9 mg/dL (8.5-10.1) Phosphorus Level 2.9 mg/dL (2.6-4.7) Magnesium Level 2.7 mg/dL (1.8-2.4) Total Bilirubin 0.6 mg/dL (0.2-1.0) Aspartate Amino Transf (AST/SGOT) 22 U/L (15-37) Alanine Aminotransferase (ALT/SGPT) 26 U/L (14-59) Alkaline Phosphatase 74 U/L (46-116) Total Protein 6.2 g/dL (6.4-8.2) Albumin 2.0 g/dL (3.4-5.0) Albumin/Globulin Ratio 0.5 (1.0-1.7) Test 02/20/21 06:17 Glucose (Fingerstick) 219 mg/dL (70-99) Objective: Assessment: Status post large ventral hernia repair on February 12, 2021 Possible ileus Encephalopathy appears metabolic Leukocytosis on steroids Febrile illness resolved Anemia A. fib with RVR CHF Renal insufficiency Rheumatoid arthritis Depression History of breast cancer Hypertension Hyperkalemia Plan: Plan of Care DC cefepime, encephalopathy appears metabolic Leukocytosis likely from steroids General surgery following Continue local wound care/drain management as directed Continue aspiration precautions Maintain aspiration precautions Discussed with at bedside D/W MELINDA WALLACE MD Feb 20, 2021 08:32
[2021-02-20] MEDS: BUDESONIDE 0.5 MG/2 ML NEBU. NEB SCH ×2 (08:41→20:30)
[2021-02-20] MEDS: IPRATROPIUM BROMIDE 0.5 MG/2.5 ML NEBU. NEB SCH ×4 (08:41→20:30)
--- NOTE | 2021-02-20 09:03 | PDOC ---
PULMONARY PROGRESS NOTES DATE: 02/20/21 TIME: 08:59 Subjective Patient remains confused and lethargic. She is not responsive to any commands. She developed A. fib with RVR last night. She has some faint audible wheezing. Vitals Vital Signs Date Time Temp Pulse Resp B/P (MAP) Pulse Ox O2 Delivery O2 Flow Rate FiO2 02/20/21 08:41 97 Nasal Cannula 3.0 02/20/21 07:36 102 205/75 02/20/21 07:00 98.9 18 98.9 Comments ros as mentioned above other sys otherwise neg General: Confused, Lethargic Lungs: Wheezing Cardiovascular: Other (irreg irreg ) Abdomen: Soft, Other (Tender in the lower quadrants) Skin: Warm Labs Laboratory Tests Test 02/18/21 12:19 02/18/21 18:27 02/18/21 23:38 02/19/21 06:00 Glucose (Fingerstick) 322 mg/dL (70-99) 286 mg/dL (70-99) 239 mg/dL (70-99) White Blood Count 15.9 x10^3/uL (4.0-11.0) Red Blood Count 2.96 x10^6/uL (3.50-5.40) Hemoglobin 8.6 g/dL (12.0-15.5) Hematocrit 26.9 % (36.0-47.0) Mean Corpuscular Volume 91 fL (79-100) Mean Corpuscular Hemoglobin 29 pg (25-35) Mean Corpuscular Hemoglobin Concent 32 g/dL (31-37) Red Cell Distribution Width 16.5 % (11.5-14.5) Platelet Count 266 x10^3/uL (140-400) Neutrophils (%) (Auto) 84 % (31-73) Lymphocytes (%) (Auto) 3 % (24-48) Monocytes (%) (Auto) 13 % (0-9) Eosinophils (%) (Auto) 0 % (0-3) Basophils (%) (Auto) 0 % (0-3) Neutrophils # (Auto) 13.3 x10^3/uL (1.8-7.7) Lymphocytes # (Auto) 0.4 x10^3/uL (1.0-4.8) Monocytes # (Auto) 2.0 x10^3/uL (0.0-1.1) Eosinophils # (Auto) 0.0 x10^3/uL (0.0-0.7) Basophils # (Auto) 0.0 x10^3/uL (0.0-0.2) Segmented Neutrophils % 84 % (35-66) Band Neutrophils % 8 % (0-9) Lymphocytes % 5 % (24-48) Monocytes % 3 % (0-10) Platelet Estimate Adequate (ADEQUATE) Sodium Level 142 mmol/L (136-145) Potassium Level 5.8 mmol/L (3.5-5.1) Chloride Level 112 mmol/L (98-107) Carbon Dioxide Level 20 mmol/L (21-32) Anion Gap 10 (6-14) Blood Urea Nitrogen 61 mg/dL (7-20) Creatinine 1.0 mg/dL (0.6-1.0) Estimated GFR (Cockcroft-Gault) 53.8 BUN/Creatinine Ratio 61 (6-20) Glucose Level 286 mg/dL (70-99) Calcium Level 7.1 mg/dL (8.5-10.1) Phosphorus Level 2.8 mg/dL (2.6-4.7) Magnesium Level 2.8 mg/dL (1.8-2.4) Total Bilirubin 0.3 mg/dL (0.2-1.0) Aspartate Amino Transf (AST/SGOT) 12 U/L (15-37) Alanine Aminotransferase (ALT/SGPT) 21 U/L (14-59) Alkaline Phosphatase 67 U/L (46-116) Total Protein 6.3 g/dL (6.4-8.2) Albumin 1.9 g/dL (3.4-5.0) Albumin/Globulin Ratio 0.4 (1.0-1.7) Triglycerides Level 319 mg/dL (0-150) Test 02/19/21 06:06 02/19/21 09:49 02/19/21 11:50 02/19/21 12:31 Glucose (Fingerstick) 259 mg/dL (70-99) 250 mg/dL (70-99) Urine Collection Type Unknown Urine Color Brown Urine Clarity Cloudy Urine pH (<5.0-8.0) Urine Specific [place] (1.000-1.030) Urine Protein mg/dL (NEG-TRACE) Urine Glucose (UA) mg/dL (NEG) Urine Ketones (Stick) mg/dL (NEG) Urine Blood (NEG) Urine Nitrite (NEG) Urine Bilirubin (NEG) Urine Urobilinogen Dipstick mg/dL (0.2 mg/dL) Urine Leukocyte Esterase (NEG) Urine RBC >40 /HPF (0-2) Urine WBC 1-4 /HPF (0-4) Urine Squamous Epithelial Cells Few /LPF Urine Bacteria 0 /HPF (0-FEW) Urine Yeast Present /HPF O2 Saturation 95 % (92-99) Arterial Blood pH 7.29 (7.35-7.45) Arterial Blood pCO2 at Patient Temp 36 mmHg (35-46) Arterial Blood pO2 at Patient Temp 83 mmHg (65-108) Arterial Blood HCO3 17 mmol/L (21-28) Arterial Blood Base Excess -9 mmol/L (-3-3) FiO2 36 Test 02/19/21 13:28 02/19/21 18:14 02/20/21 00:25 02/20/21 04:23 Creatine Kinase 219 U/L (26-192) Glucose (Fingerstick) 135 mg/dL (70-99) 234 mg/dL (70-99) O2 Saturation 93 % (92-99) Arterial Blood pH 7.39 (7.35-7.45) Arterial Blood pCO2 at Patient Temp 30 mmHg (35-46) Arterial Blood pO2 at Patient Temp 72 mmHg (65-108) Arterial Blood HCO3 18 mmol/L (21-28) Arterial Blood Base Excess -7 mmol/L (-3-3) FiO2 32 Test 02/20/21 06:10 02/20/21 06:17 White Blood Count 17.3 x10^3/uL (4.0-11.0) Red Blood Count 2.79 x10^6/uL (3.50-5.40) Hemoglobin 8.2 g/dL (12.0-15.5) Hematocrit 25.4 % (36.0-47.0) Mean Corpuscular Volume 91 fL (79-100) Mean Corpuscular Hemoglobin 29 pg (25-35) Mean Corpuscular Hemoglobin Concent 32 g/dL (31-37) Red Cell Distribution Width 16.6 % (11.5-14.5) Platelet Count 255 x10^3/uL (140-400) Neutrophils (%) (Auto) 90 % (31-73) Lymphocytes (%) (Auto) 2 % (24-48) Monocytes (%) (Auto) 8 % (0-9) Eosinophils (%) (Auto) 0 % (0-3) Basophils (%) (Auto) 0 % (0-3) Neutrophils # (Auto) 15.5 x10^3/uL (1.8-7.7) Lymphocytes # (Auto) 0.3 x10^3/uL (1.0-4.8) Monocytes # (Auto) 1.4 x10^3/uL (0.0-1.1) Eosinophils # (Auto) 0.0 x10^3/uL (0.0-0.7) Basophils # (Auto) 0.0 x10^3/uL (0.0-0.2) Sodium Level 149 mmol/L (136-145) Potassium Level 4.7 mmol/L (3.5-5.1) Chloride Level 116 mmol/L (98-107) Carbon Dioxide Level 23 mmol/L (21-32) Anion Gap 10 (6-14) Blood Urea Nitrogen 61 mg/dL (7-20) Creatinine 1.0 mg/dL (0.6-1.0) Estimated GFR (Cockcroft-Gault) 53.8 BUN/Creatinine Ratio 61 (6-20) Glucose Level 268 mg/dL (70-99) Calcium Level 6.9 mg/dL (8.5-10.1) Phosphorus Level 2.9 mg/dL (2.6-4.7) Magnesium Level 2.7 mg/dL (1.8-2.4) Total Bilirubin 0.6 mg/dL (0.2-1.0) Aspartate Amino Transf (AST/SGOT) 22 U/L (15-37) Alanine Aminotransferase (ALT/SGPT) 26 U/L (14-59) Alkaline Phosphatase 74 U/L (46-116) Total Protein 6.2 g/dL (6.4-8.2) Albumin 2.0 g/dL (3.4-5.0) Albumin/Globulin Ratio 0.5 (1.0-1.7) Glucose (Fingerstick) 219 mg/dL (70-99) Laboratory Tests Test 02/19/21 09:49 02/19/21 11:50 02/19/21 12:31 02/19/21 13:28 Urine Collection Type Unknown Urine Color Brown Urine Clarity Cloudy Urine pH (<5.0-8.0) Urine Specific [place] (1.000-1.030) Urine Protein mg/dL (NEG-TRACE) Urine Glucose (UA) mg/dL (NEG) Urine Ketones (Stick) mg/dL (NEG) Urine Blood (NEG) Urine Nitrite (NEG) Urine Bilirubin (NEG) Urine Urobilinogen Dipstick mg/dL (0.2 mg/dL) Urine Leukocyte Esterase (NEG) Urine RBC >40 /HPF (0-2) Urine WBC 1-4 /HPF (0-4) Urine Squamous Epithelial Cells Few /LPF Urine Bacteria 0 /HPF (0-FEW) Urine Yeast Present /HPF O2 Saturation 95 % (92-99) Arterial Blood pH 7.29 (7.35-7.45) Arterial Blood pCO2 at Patient Temp 36 mmHg (35-46) Arterial Blood pO2 at Patient Temp 83 mmHg (65-108) Arterial Blood HCO3 17 mmol/L (21-28) Arterial Blood Base Excess -9 mmol/L (-3-3) FiO2 36 Glucose (Fingerstick) 250 mg/dL (70-99) Creatine Kinase 219 U/L (26-192) Test 02/19/21 18:14 02/20/21 00:25 02/20/21 04:23 02/20/21 06:10 Glucose (Fingerstick) 135 mg/dL (70-99) 234 mg/dL (70-99) O2 Saturation 93 % (92-99) Arterial Blood pH 7.39 (7.35-7.45) Arterial Blood pCO2 at Patient Temp 30 mmHg (35-46) Arterial Blood pO2 at Patient Temp 72 mmHg (65-108) Arterial Blood HCO3 18 mmol/L (21-28) Arterial Blood Base Excess -7 mmol/L (-3-3) FiO2 32 White Blood Count 17.3 x10^3/uL (4.0-11.0) Red Blood Count 2.79 x10^6/uL (3.50-5.40) Hemoglobin 8.2 g/dL (12.0-15.5) Hematocrit 25.4 % (36.0-47.0) Mean Corpuscular Volume 91 fL (79-100) Mean Corpuscular Hemoglobin 29 pg (25-35) Mean Corpuscular Hemoglobin Concent 32 g/dL (31-37) Red Cell Distribution Width 16.6 % (11.5-14.5) Platelet Count 255 x10^3/uL (140-400) Neutrophils (%) (Auto) 90 % (31-73) Lymphocytes (%) (Auto) 2 % (24-48) Monocytes (%) (Auto) 8 % (0-9) Eosinophils (%) (Auto) 0 % (0-3) Basophils (%) (Auto) 0 % (0-3) Neutrophils # (Auto) 15.5 x10^3/uL (1.8-7.7) Lymphocytes # (Auto) 0.3 x10^3/uL (1.0-4.8) Monocytes # (Auto) 1.4 x10^3/uL (0.0-1.1) Eosinophils # (Auto) 0.0 x10^3/uL (0.0-0.7) Basophils # (Auto) 0.0 x10^3/uL (0.0-0.2) Sodium Level 149 mmol/L (136-145) Potassium Level 4.7 mmol/L (3.5-5.1) Chloride Level 116 mmol/L (98-107) Carbon Dioxide Level 23 mmol/L (21-32) Anion Gap 10 (6-14) Blood Urea Nitrogen 61 mg/dL (7-20) Creatinine 1.0 mg/dL (0.6-1.0) Estimated GFR (Cockcroft-Gault) 53.8 BUN/Creatinine Ratio 61 (6-20) Glucose Level 268 mg/dL (70-99) Calcium Level 6.9 mg/dL (8.5-10.1) Phosphorus Level 2.9 mg/dL (2.6-4.7) Magnesium Level 2.7 mg/dL (1.8-2.4) Total Bilirubin 0.6 mg/dL (0.2-1.0) Aspartate Amino Transf (AST/SGOT) 22 U/L (15-37) Alanine Aminotransferase (ALT/SGPT) 26 U/L (14-59) Alkaline Phosphatase 74 U/L (46-116) Total Protein 6.2 g/dL (6.4-8.2) Albumin 2.0 g/dL (3.4-5.0) Albumin/Globulin Ratio 0.5 (1.0-1.7) Test 02/20/21 06:17 Glucose (Fingerstick) 219 mg/dL (70-99) Medications Active Scripts Medications Dose Route/Sig Max Daily Dose Days Date Category Vitamin B12 (Cyanocobalamin (Vitamin B-12)) 2,500 Mcg Tablet 500 Mg PO BID 02/15/21 Reported Nexium Capsule (Esomeprazole Magnesium) 40 Mg Capsule.dr Ruiz Cap PO BID 02/15/21 Reported Calcium 600 + Vit D 800 Tab (Calcium Carbonate/Vitamin D3) 1 Each Tablet 1 Tab PO BID 30 02/15/21 Reported Benefiber (Wheat Dextrin) 1 Each Powd.pack 1 Each PO DAILY 02/15/21 Reported Lisinopril 10 Mg Tablet 1 Tab PO DAILY 02/15/21 Reported Leflunomide 10 Mg Tablet 10 Mg PO DAILY 02/15/21 Reported Prednisone 2.5 Mg Tablet 5 Mg PO DAILY 02/15/21 Reported Metoprolol Tartrate 25 Mg Tablet 1 Tab PO DAILY 02/15/21 Reported Hydrocodone-Apap 5-325 (Hydrocodone Bit/Acetaminophen) 1 Tab Tablet 1 Tab PO PRN BID PRN 02/15/21 Reported Gabapentin 100 Mg Capsule 100 Mg PO PRN BID PRN 02/15/21 Reported Folic Acid 0.8 Mg Tablet 3 Mg PO DAILY 02/15/21 Reported Cymbalta (Duloxetine Hcl) 30 Mg Capsule.dr Ruiz Cap PO DAILY 02/15/21 Reported Prolia (Denosumab) 60 Mg/1 Ml Disp.syrin 1 Syr SQ [id number] 1 02/15/21 Reported Celexa (Citalopram Hydrobromide) 10 Mg Tablet 1 Tab PO DAILY 02/15/21 Reported Alprazolam 0.25 Mg Tablet 0.25 Mg PO PRN DAILY PRN 02/15/21 Reported Comments Chest x-ray from 02/19 Interstitial infiltrates in the right upper lung. Impression . IMPRESSION: 1. Acute hypoxemic respiratory failure, multifactorial. 2. Abnormal x-ray, compatible with effusion, possibly congestive heart failure. Possible pneumonia. She does have underlying interstitial lung disease likely related to rheumatoid arthritis. 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 A. fib with rapid ventricular response 4. Leukocytosis. 5. Fever. 6. Status post large ventral hernia repair on 02/13. 7. Rheumatoid arthritis with previously diagnosed as interstitial lung disease. 8. Hypertension. 9. Breast cancer, status post radiation. 10. Tobacco dependence, in remission. 11. Chronic obstructive pulmonary disease, unknown FEV1 12. Multifactorial encephalopathy/delirium/toxic encephalopathy contributed by Dilaudid. Plan . Updated 02/20 Discussed with patient's and RN and RT. At this time I would discontinue Dilaudid [employer]. Use fentanyl as needed 25 max every 3 hours. Expect to see an improvement in her mental status. If there is no improvement in mental status, will do CT head. Antibiotics per ID IV Lasix daily Repeat arterial blood gas from yesterday did not reveal any hypercapnia. Chest x-ray as needed Cardiology to address hypertension and A. fib Avoid sedating from medication Nephrology has been consulted Audible wheezing is due to tracheobronchomalacia. Increase Solu-Medrol. Continue with nebulizers Discussed with at the bedside, explained to him in detail patient's condition as well as plan for today. Critical care time 30 minutes PLAN: 1. wheezing suspect a combination of chf and copd w ae/bronchospasm lasix 20 mg iv now solumedrol 125 mg now add duo neb prn add ics start solumedrol 40 mg iv q 12 titrate fio2 to keep sat 92% start bipap prn and qhs obese suspect has fernando 2. Empiric antibiotics. zyvox cefepime 3. Chest x-ray reviewed, CHF. follow Cardiology rec 4. on cardizem gtt afib rate controlled 5. Diurese monitor k cr 6. start IS 7. change solumedrol to 40 daily 8. BD atrovent only avoid albuterol 9. lovenox for dvt prophylaxis discussed w rn critically ill cct 30 no overlap MACIEJ YOUNG MD Feb 20, 2021 09:03
[2021-02-20] MEDS ORDERED: fentaNYL PF VIAL 100 MCG/2 ML VIAL IVP PRN (09:15)
[2021-02-20] MEDS: FUROSEMIDE 40 MG/4 ML VIAL. IVP SCH (09:17)
--- NOTE | 2021-02-20 09:36 | PDOC ---
PROGRESS NOTES Date of Service: DATE: 02/20/21 TIME: 09:35 Chief Complaint Chief Complaint Abdominal pain History of Present Illness History of Present Illness This patient was sent here for a ventral hernia repair which he underwent on February 13. Patient under the care of general surgery team. Patient had done really well after surgery initially she was actually planning to start trialing liquids yesterday however she had some worsening in her overall status concerning for sepsis. She was hypotensive and tachycardic up to the 160s. Her work-up showed A. fib with RVR requiring a Cardizem drip. Was evaluated by Dr. Caro who was concerned about her status recommending ICU transfer. Infectious Disease and pulmonary were consulted. Patient started on broad-spectrum antibiotics. Pulmonary following. 02/16 Patient evaluated in the ICU today. Her condition has significantly improved since last night. She is awake alert and oriented able to answer questions says pain is under control. Blood pressure holding steady. Remains on Cardizem drip. Continue antibiotics today. Suspect she can transfer out of ICU if beds are needed. Requesting to drink if she can, will defer this decision to surgery. 02/17 Patient evaluated at bedside. She is complaining about some shortness of breath but is feeling comfortable. Vitals look normal. at bedside is very concerned and tried to reassure him. Continue current plan. We will try 1 dose of Lasix today based upon chest x-ray. 02/18 Evaluated at bedside. Patient resting in bed. Appears to be in normal sinus rhythm. No major clinical changes otherwise. 02/19 Evaluated at bedside. Patient resting in bed pursed lip breathing D/W XAVIER/ [employer], ABG pending d/w in room k 5.8 on tpn pharmacy to adjust k in tpn Acute hypoxemic respiratory failure, multifactorial. Abnormal x-ray, compatible with effusion, possibly congestive heart failure. Possible pneumonia. on iv cefepime recent afib w rvr cardizem drip prn nephrology consulted bun 61 cr 1.0 severe protein, caloric malnutrition Status post large ventral hernia repair on February 12, 2021 Sepsis Leukocytosis Anemia Chronic obstructive pulmonary disease, unknown FEV1 Cont cefepime to 2 g IV every 12hr, may need renal dosing DC metronidazole and Zyvox ABG PH 7.29, PCO2 36 PO2 83 33 MIN CC TIME 02/20 Evaluated at bedside. 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 Abnormal x-ray, compatible with effusion, possibly congestive heart failure. Possible pneumonia. on iv cefepime recent afib w rvr cardizem drip prn nephrology consulted bun 61 cr 1.0 severe protein, caloric malnutrition Status post large ventral hernia repair on February 12, 2021 Sepsis Leukocytosis MARILEE at presentation- Cr 1.3 resolved .BUN in 60's stable, likely sec to steroids / decrease in UOp today per nursing Anemia Chronic obstructive pulmonary disease, unknown FEV1 Cont cefepime to 2 g IV every 12hr, may need renal dosing Increased interstitial opacities in the right lung. 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 Anicteric. Dry mouth NECK: Supple. No JVD. LUNGS: Rales present + for wheezing HEART: Irregularly irregular no murmurs appreciated ABDOMEN: Obese ,mildly distended, binder in place, not taken down, intact dry Hypoactive bowel sounds [address] EXTREMITIES mild edema present, no cyanosis MUSCULOSKELETAL: No joint swelling. No decrease in range of motion. CENTRAL NERVOUS SYSTEM: Sleepy, arousable does not answer any questions PSYCHIATRIC: Cooperative, sleepy PICC line clean General: Cooperative, Other (confusion, sedation ) Heart: Regular rate Lungs: Wheezing Abdomen: Soft, Other (incision intact, drains serosang) Extremities: No edema, Normal pulses Skin: No significant lesion Labs LABS PATIENT: LYNDSEY JOSUE ACCOUNT: [id number] : 1945 LOCATION: [facility] ICU AGE: 75 SEX: F EXAM STATUS: ADM IN ORD. PHYSICIAN: ASHLY PRADHAN MD REASON: chf PROCEDURE: PORTABLE CHEST 1V EXAM: XR CHEST 1V 02/19/2021 12:49 PM CLINICAL INDICATION: Right shoulder pain and decreased COMPARISON: Chest radiograph 02/17/2021 TECHNIQUE: AP upright view of the chest FINDINGS: Right PICC with tip at the superior cavoatrial junction is unchanged. The heart is at the upper limit normal in size. Interstitial opacities are mildly increased in the mid right lung and unchanged elsewhere. No pleural effusion or pneumothorax. Surgical clips are seen in the left axillary region. IMPRESSION: Increased interstitial opacities in the right lung. Electronically signed by: Tamar Borrego MD (02/19/2021 4:03 PM) [id number] DICTATED and SIGNED BY: TAMAR BORREGO MD DATE: 02/19/21 [id number] Laboratory Tests Test 02/19/21 09:49 02/19/21 11:50 02/19/21 12:31 02/19/21 13:28 Urine Collection Type Unknown Urine Color Brown Urine Clarity Cloudy Urine pH (<5.0-8.0) Urine Specific [place] (1.000-1.030) Urine Protein mg/dL (NEG-TRACE) Urine Glucose (UA) mg/dL (NEG) Urine Ketones (Stick) mg/dL (NEG) Urine Blood (NEG) Urine Nitrite (NEG) Urine Bilirubin (NEG) Urine Urobilinogen Dipstick mg/dL (0.2 mg/dL) Urine Leukocyte Esterase (NEG) Urine RBC >40 /HPF (0-2) Urine WBC 1-4 /HPF (0-4) Urine Squamous Epithelial Cells Few /LPF Urine Bacteria 0 /HPF (0-FEW) Urine Yeast Present /HPF O2 Saturation 95 % (92-99) Arterial Blood pH 7.29 (7.35-7.45) Arterial Blood pCO2 at Patient Temp 36 mmHg (35-46) Arterial Blood pO2 at Patient Temp 83 mmHg (65-108) Arterial Blood HCO3 17 mmol/L (21-28) Arterial Blood Base Excess -9 mmol/L (-3-3) FiO2 36 Glucose (Fingerstick) 250 mg/dL (70-99) Creatine Kinase 219 U/L (26-192) Test 02/19/21 18:14 02/20/21 00:25 02/20/21 04:23 02/20/21 06:10 Glucose (Fingerstick) 135 mg/dL (70-99) 234 mg/dL (70-99) O2 Saturation 93 % (92-99) Arterial Blood pH 7.39 (7.35-7.45) Arterial Blood pCO2 at Patient Temp 30 mmHg (35-46) Arterial Blood pO2 at Patient Temp 72 mmHg (65-108) Arterial Blood HCO3 18 mmol/L (21-28) Arterial Blood Base Excess -7 mmol/L (-3-3) FiO2 32 White Blood Count 17.3 x10^3/uL (4.0-11.0) Red Blood Count 2.79 x10^6/uL (3.50-5.40) Hemoglobin 8.2 g/dL (12.0-15.5) Hematocrit 25.4 % (36.0-47.0) Mean Corpuscular Volume 91 fL (79-100) Mean Corpuscular Hemoglobin 29 pg (25-35) Mean Corpuscular Hemoglobin Concent 32 g/dL (31-37) Red Cell Distribution Width 16.6 % (11.5-14.5) Platelet Count 255 x10^3/uL (140-400) Neutrophils (%) (Auto) 90 % (31-73) Lymphocytes (%) (Auto) 2 % (24-48) Monocytes (%) (Auto) 8 % (0-9) Eosinophils (%) (Auto) 0 % (0-3) Basophils (%) (Auto) 0 % (0-3) Neutrophils # (Auto) 15.5 x10^3/uL (1.8-7.7) Lymphocytes # (Auto) 0.3 x10^3/uL (1.0-4.8) Monocytes # (Auto) 1.4 x10^3/uL (0.0-1.1) Eosinophils # (Auto) 0.0 x10^3/uL (0.0-0.7) Basophils # (Auto) 0.0 x10^3/uL (0.0-0.2) Sodium Level 149 mmol/L (136-145) Potassium Level 4.7 mmol/L (3.5-5.1) Chloride Level 116 mmol/L (98-107) Carbon Dioxide Level 23 mmol/L (21-32) Anion Gap 10 (6-14) Blood Urea Nitrogen 61 mg/dL (7-20) Creatinine 1.0 mg/dL (0.6-1.0) Estimated GFR (Cockcroft-Gault) 53.8 BUN/Creatinine Ratio 61 (6-20) Glucose Level 268 mg/dL (70-99) Calcium Level 6.9 mg/dL (8.5-10.1) Phosphorus Level 2.9 mg/dL (2.6-4.7) Magnesium Level 2.7 mg/dL (1.8-2.4) Total Bilirubin 0.6 mg/dL (0.2-1.0) Aspartate Amino Transf (AST/SGOT) 22 U/L (15-37) Alanine Aminotransferase (ALT/SGPT) 26 U/L (14-59) Alkaline Phosphatase 74 U/L (46-116) Total Protein 6.2 g/dL (6.4-8.2) Albumin 2.0 g/dL (3.4-5.0) Albumin/Globulin Ratio 0.5 (1.0-1.7) Test 02/20/21 06:17 Glucose (Fingerstick) 219 mg/dL (70-99) Comment Review of Relevant I have reviewed the following items keely (where applicable) has been applied. Labs Laboratory Tests Test 02/18/21 12:19 02/18/21 18:27 02/18/21 23:38 02/19/21 06:00 Glucose (Fingerstick) 322 mg/dL (70-99) 286 mg/dL (70-99) 239 mg/dL (70-99) White Blood Count 15.9 x10^3/uL (4.0-11.0) Red Blood Count 2.96 x10^6/uL (3.50-5.40) Hemoglobin 8.6 g/dL (12.0-15.5) Hematocrit 26.9 % (36.0-47.0) Mean Corpuscular Volume 91 fL (79-100) Mean Corpuscular Hemoglobin 29 pg (25-35) Mean Corpuscular Hemoglobin Concent 32 g/dL (31-37) Red Cell Distribution Width 16.5 % (11.5-14.5) Platelet Count 266 x10^3/uL (140-400) Neutrophils (%) (Auto) 84 % (31-73) Lymphocytes (%) (Auto) 3 % (24-48) Monocytes (%) (Auto) 13 % (0-9) Eosinophils (%) (Auto) 0 % (0-3) Basophils (%) (Auto) 0 % (0-3) Neutrophils # (Auto) 13.3 x10^3/uL (1.8-7.7) Lymphocytes # (Auto) 0.4 x10^3/uL (1.0-4.8) Monocytes # (Auto) 2.0 x10^3/uL (0.0-1.1) Eosinophils # (Auto) 0.0 x10^3/uL (0.0-0.7) Basophils # (Auto) 0.0 x10^3/uL (0.0-0.2) Segmented Neutrophils % 84 % (35-66) Band Neutrophils % 8 % (0-9) Lymphocytes % 5 % (24-48) Monocytes % 3 % (0-10) Platelet Estimate Adequate (ADEQUATE) Sodium Level 142 mmol/L (136-145) Potassium Level 5.8 mmol/L (3.5-5.1) Chloride Level 112 mmol/L (98-107) Carbon Dioxide Level 20 mmol/L (21-32) Anion Gap 10 (6-14) Blood Urea Nitrogen 61 mg/dL (7-20) Creatinine 1.0 mg/dL (0.6-1.0) Estimated GFR (Cockcroft-Gault) 53.8 BUN/Creatinine Ratio 61 (6-20) Glucose Level 286 mg/dL (70-99) Calcium Level 7.1 mg/dL (8.5-10.1) Phosphorus Level 2.8 mg/dL (2.6-4.7) Magnesium Level 2.8 mg/dL (1.8-2.4) Total Bilirubin 0.3 mg/dL (0.2-1.0) Aspartate Amino Transf (AST/SGOT) 12 U/L (15-37) Alanine Aminotransferase (ALT/SGPT) 21 U/L (14-59) Alkaline Phosphatase 67 U/L (46-116) Total Protein 6.3 g/dL (6.4-8.2) Albumin 1.9 g/dL (3.4-5.0) Albumin/Globulin Ratio 0.4 (1.0-1.7) Triglycerides Level 319 mg/dL (0-150) Test 02/19/21 06:06 02/19/21 09:49 02/19/21 11:50 02/19/21 12:31 Glucose (Fingerstick) 259 mg/dL (70-99) 250 mg/dL (70-99) Urine Collection Type Unknown Urine Color Brown Urine Clarity Cloudy Urine pH (<5.0-8.0) Urine Specific [place] (1.000-1.030) Urine Protein mg/dL (NEG-TRACE) Urine Glucose (UA) mg/dL (NEG) Urine Ketones (Stick) mg/dL (NEG) Urine Blood (NEG) Urine Nitrite (NEG) Urine Bilirubin (NEG) Urine Urobilinogen Dipstick mg/dL (0.2 mg/dL) Urine Leukocyte Esterase (NEG) Urine RBC >40 /HPF (0-2) Urine WBC 1-4 /HPF (0-4) Urine Squamous Epithelial Cells Few /LPF Urine Bacteria 0 /HPF (0-FEW) Urine Yeast Present /HPF O2 Saturation 95 % (92-99) Arterial Blood pH 7.29 (7.35-7.45) Arterial Blood pCO2 at Patient Temp 36 mmHg (35-46) Arterial Blood pO2 at Patient Temp 83 mmHg (65-108) Arterial Blood HCO3 17 mmol/L (21-28) Arterial Blood Base Excess -9 mmol/L (-3-3) FiO2 36 Test 02/19/21 13:28 02/19/21 18:14 02/20/21 00:25 02/20/21 04:23 Creatine Kinase 219 U/L (26-192) Glucose (Fingerstick) 135 mg/dL (70-99) 234 mg/dL (70-99) O2 Saturation 93 % (92-99) Arterial Blood pH 7.39 (7.35-7.45) Arterial Blood pCO2 at Patient Temp 30 mmHg (35-46) Arterial Blood pO2 at Patient Temp 72 mmHg (65-108) Arterial Blood HCO3 18 mmol/L (21-28) Arterial Blood Base Excess -7 mmol/L (-3-3) FiO2 32 Test 02/20/21 06:10 02/20/21 06:17 White Blood Count 17.3 x10^3/uL (4.0-11.0) Red Blood Count 2.79 x10^6/uL (3.50-5.40) Hemoglobin 8.2 g/dL (12.0-15.5) Hematocrit 25.4 % (36.0-47.0) Mean Corpuscular Volume 91 fL (79-100) Mean Corpuscular Hemoglobin 29 pg (25-35) Mean Corpuscular Hemoglobin Concent 32 g/dL (31-37) Red Cell Distribution Width 16.6 % (11.5-14.5) Platelet Count 255 x10^3/uL (140-400) Neutrophils (%) (Auto) 90 % (31-73) Lymphocytes (%) (Auto) 2 % (24-48) Monocytes (%) (Auto) 8 % (0-9) Eosinophils (%) (Auto) 0 % (0-3) Basophils (%) (Auto) 0 % (0-3) Neutrophils # (Auto) 15.5 x10^3/uL (1.8-7.7) Lymphocytes # (Auto) 0.3 x10^3/uL (1.0-4.8) Monocytes # (Auto) 1.4 x10^3/uL (0.0-1.1) Eosinophils # (Auto) 0.0 x10^3/uL (0.0-0.7) Basophils # (Auto) 0.0 x10^3/uL (0.0-0.2) Sodium Level 149 mmol/L (136-145) Potassium Level 4.7 mmol/L (3.5-5.1) Chloride Level 116 mmol/L (98-107) Carbon Dioxide Level 23 mmol/L (21-32) Anion Gap 10 (6-14) Blood Urea Nitrogen 61 mg/dL (7-20) Creatinine 1.0 mg/dL (0.6-1.0) Estimated GFR (Cockcroft-Gault) 53.8 BUN/Creatinine Ratio 61 (6-20) Glucose Level 268 mg/dL (70-99) Calcium Level 6.9 mg/dL (8.5-10.1) Phosphorus Level 2.9 mg/dL (2.6-4.7) Magnesium Level 2.7 mg/dL (1.8-2.4) Total Bilirubin 0.6 mg/dL (0.2-1.0) Aspartate Amino Transf (AST/SGOT) 22 U/L (15-37) Alanine Aminotransferase (ALT/SGPT) 26 U/L (14-59) Alkaline Phosphatase 74 U/L (46-116) Total Protein 6.2 g/dL (6.4-8.2) Albumin 2.0 g/dL (3.4-5.0) Albumin/Globulin Ratio 0.5 (1.0-1.7) Glucose (Fingerstick) 219 mg/dL (70-99) Laboratory Tests Test 02/19/21 09:49 02/19/21 11:50 02/19/21 12:31 02/19/21 13:28 Urine Collection Type Unknown Urine Color Brown Urine Clarity Cloudy Urine pH (<5.0-8.0) Urine Specific [place] (1.000-1.030) Urine Protein mg/dL (NEG-TRACE) Urine Glucose (UA) mg/dL (NEG) Urine Ketones (Stick) mg/dL (NEG) Urine Blood (NEG) Urine Nitrite (NEG) Urine Bilirubin (NEG) Urine Urobilinogen Dipstick mg/dL (0.2 mg/dL) Urine Leukocyte Esterase (NEG) Urine RBC >40 /HPF (0-2) Urine WBC 1-4 /HPF (0-4) Urine Squamous Epithelial Cells Few /LPF Urine Bacteria 0 /HPF (0-FEW) Urine Yeast Present /HPF O2 Saturation 95 % (92-99) Arterial Blood pH 7.29 (7.35-7.45) Arterial Blood pCO2 at Patient Temp 36 mmHg (35-46) Arterial Blood pO2 at Patient Temp 83 mmHg (65-108) Arterial Blood HCO3 17 mmol/L (21-28) Arterial Blood Base Excess -9 mmol/L (-3-3) FiO2 36 Glucose (Fingerstick) 250 mg/dL (70-99) Creatine Kinase 219 U/L (26-192) Test 02/19/21 18:14 02/20/21 00:25 02/20/21 04:23 02/20/21 06:10 Glucose (Fingerstick) 135 mg/dL (70-99) 234 mg/dL (70-99) O2 Saturation 93 % (92-99) Arterial Blood pH 7.39 (7.35-7.45) Arterial Blood pCO2 at Patient Temp 30 mmHg (35-46) Arterial Blood pO2 at Patient Temp 72 mmHg (65-108) Arterial Blood HCO3 18 mmol/L (21-28) Arterial Blood Base Excess -7 mmol/L (-3-3) FiO2 32 White Blood Count 17.3 x10^3/uL (4.0-11.0) Red Blood Count 2.79 x10^6/uL (3.50-5.40) Hemoglobin 8.2 g/dL (12.0-15.5) Hematocrit 25.4 % (36.0-47.0) Mean Corpuscular Volume 91 fL (79-100) Mean Corpuscular Hemoglobin 29 pg (25-35) Mean Corpuscular Hemoglobin Concent 32 g/dL (31-37) Red Cell Distribution Width 16.6 % (11.5-14.5) Platelet Count 255 x10^3/uL (140-400) Neutrophils (%) (Auto) 90 % (31-73) Lymphocytes (%) (Auto) 2 % (24-48) Monocytes (%) (Auto) 8 % (0-9) Eosinophils (%) (Auto) 0 % (0-3) Basophils (%) (Auto) 0 % (0-3) Neutrophils # (Auto) 15.5 x10^3/uL (1.8-7.7) Lymphocytes # (Auto) 0.3 x10^3/uL (1.0-4.8) Monocytes # (Auto) 1.4 x10^3/uL (0.0-1.1) Eosinophils # (Auto) 0.0 x10^3/uL (0.0-0.7) Basophils # (Auto) 0.0 x10^3/uL (0.0-0.2) Sodium Level 149 mmol/L (136-145) Potassium Level 4.7 mmol/L (3.5-5.1) Chloride Level 116 mmol/L (98-107) Carbon Dioxide Level 23 mmol/L (21-32) Anion Gap 10 (6-14) Blood Urea Nitrogen 61 mg/dL (7-20) Creatinine 1.0 mg/dL (0.6-1.0) Estimated GFR (Cockcroft-Gault) 53.8 BUN/Creatinine Ratio 61 (6-20) Glucose Level 268 mg/dL (70-99) Calcium Level 6.9 mg/dL (8.5-10.1) Phosphorus Level 2.9 mg/dL (2.6-4.7) Magnesium Level 2.7 mg/dL (1.8-2.4) Total Bilirubin 0.6 mg/dL (0.2-1.0) Aspartate Amino Transf (AST/SGOT) 22 U/L (15-37) Alanine Aminotransferase (ALT/SGPT) 26 U/L (14-59) Alkaline Phosphatase 74 U/L (46-116) Total Protein 6.2 g/dL (6.4-8.2) Albumin 2.0 g/dL (3.4-5.0) Albumin/Globulin Ratio 0.5 (1.0-1.7) Test 02/20/21 06:17 Glucose (Fingerstick) 219 mg/dL (70-99) Medications Current Medications Fentanyl Citrate (Fentanyl 2ml Vial) 25 mcg PRN Q5MIN PRN IVP MILD PAIN 1-3 Last administered on 02/13/21at 18:23; Start 02/13/21 at 06:00; Stop 02/13/21 at 21:00; Status DC Fentanyl Citrate (Fentanyl 2ml Vial) 50 mcg PRN Q5MIN PRN IVP MODERATE PAIN 4-6 Last administered on 02/13/21at 17:53; Start 02/13/21 at 06:00; Stop 02/13/21 at 21:00; Status DC Morphine Sulfate (Morphine Sulfate) 1 mg PRN Q10MIN PRN IVP SEVERE PAIN 7-10; Start 02/13/21 at 06:00; Stop 02/13/21 at 21:00; Status DC Ringer's Solution 1,000 ml @ 30 mls/hr Q24H IV ; Start 02/13/21 at 06:00; Stop 02/13/21 at 18:00; Status DC Hydromorphone HCl (Dilaudid) 0.5 mg PRN Q10MIN PRN IVP SEVERE PAIN 7-10, 2nd CHOICE Last administered on 02/13/21at 18:18; Start 02/13/21 at 06:00; Stop 02/13/21 at 21:00; Status DC Prochlorperazine Edisylate (Compazine) 5 mg PACU PRN PRN IVP NAUSEA, MRX1; Start 02/13/21 at 06:00; Stop 02/13/21 at 21:00; Status DC Propofol (Diprivan) 200 mg STK-MED ONCE IV ; Start 02/13/21 at 09:36; Stop 02/13/21 at 09:36; Status DC Lidocaine HCl (Lidocaine Pf 2% Vial) 5 ml STK-MED ONCE .ROUTE ; Start 02/13/21 at 09:36; Stop 02/13/21 at 09:36; Status DC Dexamethasone Sodium Phosphate (Decadron) 4 mg STK-MED ONCE .ROUTE ; Start 02/13/21 at 09:36; Stop 02/13/21 at 09:36; Status DC Ondansetron HCl (Zofran) 4 mg STK-MED ONCE .ROUTE ; Start 02/13/21 at 09:36; Stop 02/13/21 at 09:36; Status DC Rocuronium Pixley (Zemuron) 50 mg STK-MED ONCE .ROUTE ; Start 02/13/21 at 09:36; Stop 02/13/21 at 09:36; Status DC Succinylcholine Chloride (Anectine) 200 mg STK-MED ONCE .ROUTE ; Start 02/13/21 at 09:38; Stop 02/13/21 at 09:38; Status DC Cefazolin Sodium/ Dextrose 0 ml @ As Directed STK-MED ONCE IV ; Start 02/13/21 at 09:45; Stop 02/13/21 at 09:45; Status DC Cefazolin Sodium (Ancef) 1 gm 1X PREOP PRN IVP PRIOR TO PROCEDURE; Start 02/13/21 at 10:00; Stop 02/13/21 at 15:08; Status DC Fentanyl Citrate (Fentanyl 2ml Vial) 100 mcg STK-MED ONCE .ROUTE ; Start 02/13/21 at 12:53; Stop 02/13/21 at 12:53; Status DC Rocuronium Pixley (Zemuron) 50 mg STK-MED ONCE .ROUTE ; Start 02/13/21 at 13:53; Stop 02/13/21 at 13:54; Status DC Fentanyl Citrate (Fentanyl 2ml Vial) 100 mcg STK-MED ONCE .ROUTE ; Start 02/13/21 at 09:38; Stop 02/13/21 at 15:05; Status DC Hydromorphone HCl (Dilaudid) 2 mg STK-MED ONCE .ROUTE ; Start 02/13/21 at 15:42; Stop 02/13/21 at 15:43; Status DC Glycopyrrolate (Robinul) 1 mg STK-MED ONCE .ROUTE ; Start 02/13/21 at 16:33; Stop 02/13/21 at 16:33; Status DC Neostigmine Pixley (Neostigmine Methylsulfate) 5 mg STK-MED ONCE .ROUTE ; Sta rt 02/13/21 at 16:33; Stop 02/13/21 at 16:33; Status DC Enoxaparin Sodium (Lovenox 40mg Syringe) 40 mg Q24H SQ Last administered on 02/19/21at 18:16; Start 02/13/21 at 18:00 Sodium Chloride (Normal Saline Flush) 3 ml QSHIFT PRN IV AFTER MEDS AND BLOOD DRAWS; Start 02/13/21 at 17:15 Sodium Chloride 1,000 ml @ 100 mls/hr Q10H IV Last administered on 02/15/21at 13:11; Start 02/13/21 at 17:15; Stop 02/17/21 at 11:03; Status DC Naloxone HCl (Narcan) 0.4 mg PRN Q2MIN PRN IV SEE INSTRUCTIONS Last administered on 02/19/21at 08:26; Start 02/13/21 at 17:15 Sodium Chloride 1,000 ml @ 25 mls/hr Q24H IV Last administered on 02/19/21at 17:15; Start 02/13/21 at 17:15 Hydromorphone HCl 30 ml @ 0 mls/hr CONT PRN PRN IV PER PROTOCOL Last administered on 02/18/21at 08:16; Start 02/13/21 at 17:15; Stop 02/20/21 at 08:28; Status DC Ondansetron HCl (Zofran) 4 mg PRN Q6HRS PRN IVP NAUESA, 1ST CHOICE Last administered on 02/19/21at 08:26; Start 02/13/21 at 17:15 Hydromorphone HCl (Dilaudid) 2 mg STK-MED ONCE .ROUTE ; Start 02/13/21 at 17:45; Stop 02/13/21 at 17:45; Status DC Fentanyl Citrate (Fentanyl 2ml Vial) 100 mcg STK-MED ONCE .ROUTE ; Start 02/13 at 17:45; Stop 02/13/21 at 17:46; Status DC Ketorolac Tromethamine (Toradol 15mg Vial) 15 mg 1X ONCE IVP Last administered on 02/14/21at 09:33; Start 02/14/21 at 09:15; Stop 02/14/21 at 09:19; Status DC Info (FLU VACCINE SCREEN per RX) 1 each PRN DAILY PRN MC SEE COMMENTS; Start 02/14/21 at 23:30; Status Cancel Metoprolol Tartrate (Lopressor Vial) 5 mg PRN Q5MIN PRN IVP TACHYCARDIA Last administered on 02/20/21at 07:36; Start 02/15/21 at 20:15 Acetaminophen (Tylenol) 1,000 mg 1X ONCE PO Last administered on 02/15/21at 20:24; Start 02/15/21 at 20:15; Stop 02/15/21 at 20:16; Status DC Sodium Chloride 500 ml @ 500 mls/hr 1X ONCE IV ; Start 02/15/21 at 21:30; Stop 02/15/21 at 22:29; Status DC Ipratropium Pixley (Atrovent) 0.5 mg 1X ONCE NEB ; Start 02/15/21 at 22:00; Stop 02/15/21 at 22:01; Status DC Ipratropium Pixley (Atrovent) 0.5 mg RTQID NEB Last administered on 02/20/21at 08:41; Start 02/16/21 at 08:00 Vancomycin HCl (Vanco Per Pharmacy) 1 each PRN DAILY PRN MC SEE COMMENTS Last administered on 02/16/21at 03:40; Start 02/15/21 at 21:30; Stop 02/16/21 at 11:17; Status DC Cefepime HCl (Maxipime) 1 gm Q24H IVP Last administered on 02/15/21at 23:10; Start 02/15/21 at 22:00; Stop 02/16/21 at 11:18; Status DC Metronidazole 100 ml @ 100 mls/hr Q12HR IV Last administered on 02/19/21at 09:21; Start 02/15/21 at 22:00; Stop 02/19/21 at 10:34; Status DC Diltiazem HCl 125 mg/Sodium Chloride 125 ml @ 5 mls/hr CONT PRN IV SEE I/O RECORD Last administered on 02/18/21at 00:35; Start 02/15/21 at 21:30 Vancomycin HCl 1.75 gm/Sodium Chloride 500 ml @ 250 mls/hr 1X ONCE IV Last administered on 02/15/21at 23:00; Start 02/15/21 at 22:00; Stop 02/15/21 at 23:59; Status DC Methylprednisolone Sodium Succinate (SOLU-Medrol 40MG VIAL) 30 mg DAILY IV Last administered on 02/17/21at 09:10; Start 02/16/21 at 09:00; Stop 02/18/21 at 06:48; Status DC Vancomycin HCl 1 gm/Sodium Chloride 250 ml @ 250 mls/hr Q24H IV ; Start 02/16/21 at 23:00; Stop 02/16/21 at 11:16; Status DC Vancomycin HCl (Vancomycin Trough Level) 1 each 1X ONCE MC ; Start 02/17/21 at 22:30; Stop 02/16/21 at 11:17; Status DC Cefepime HCl (Maxipime) 2 gm Q12HR IVP Last administered on 02/19/21at 21:02; Start 02/16/21 at 12:00; Stop 02/20/21 at 08:33; Status DC Linezolid/Dextrose 300 ml @ 300 mls/hr Q12HR IV Last administered on 02/19/21at 09:22; Start 02/16/21 at 12:00; Stop 02/19/21 at 10:34; Status DC Info (Tpn Per Pharmacy) 1 each PRN DAILY PRN MC SEE COMMENTS Last administered on 02/19/21at 11:56; Start 02/16/21 at 14:00 Furosemide (Lasix) 20 mg 1X ONCE IVP Last administered on 02/16/21at 15:42; Start 02/16/21 at 14:15; Stop 02/16/21 at 14:16; Status DC Potassium Phosphate 15 mmol/ Sodium Chloride 105 ml @ 52.5 mls/hr 1X ONCE IV Last administered on 02/16/21at 15:43; Start 02/16/21 at 15:00; Stop 02/16/21 at 16:59; Status DC Sodium Chloride 90 meq/Potassium Chloride 50 meq/ Potassium Phosphate 20 mmol/ Magnesium Sulfate 10 meq/Calcium Gluconate 10 meq/ Multivitamins 10 ml/Zinc/Copper/ Manganese/ Selenium 1 ml/ Total Parenteral Nutrition/Amino Acids/Dextrose/ Fat Emulsion Intravenous 1,296 ml @ 54 mls/hr TPN CONT IV Last administered on 02/16/21at 21:24; Start 02/16/21 at 22:00; Stop 02/17/21 at 21:59; Status DC Sodium Phosphate 20 mmol/Sodium Chloride 256.6667 ml @ 64.167 m... 1X ONCE IV Last administered on 02/17/21at 10:55; Start 02/17/21 at 10:00; Stop 02/17/21 at 13:59; Status DC Sodium Chloride 90 meq/Sodium Phosphate 10 mmol/ Potassium Chloride 50 meq/ Potassium Phosphate 20 mmol/ Magnesium Sulfate 5 meq/ Multivitamins 10 ml/Zinc/C opper/ Manganese/ Selenium 1 ml/ Total Parenteral Nutrition/Amino Acids/Dextrose/ Fat Emulsion Intravenous 1,296 ml @ 54 mls/hr TPN CONT IV ; Start 02/17/21 at 22:00; Stop 02/17/21 at 09:07; Status DC Furosemide (Lasix) 40 mg 1X ONCE IVP Last administered on 02/17/21at 09:12; Start 02/17/21 at 09:15; Stop 02/17/21 at 09:16; Status DC Sodium Phosphate 20 mmol/Sodium Chloride 256.6667 ml @ 64.167 m... 1X ONCE IV ; Start 02/17/21 at 09:15; Stop 02/17/21 at 13:14; Status UNV Sodium Chloride 90 meq/Sodium Phosphate 10 mmol/ Potassium Chloride 50 meq/ Potassium Phosphate 20 mmol/ Magnesium Sulfate 5 meq/ Multivitamins 10 ml/Zinc/C opper/ Manganese/ Selenium 1 ml/ Total Parenteral Nutrition/Amino Acids/Dextrose/ Fat Emulsion Intravenous 1,080 ml @ 45 mls/hr TPN CONT IV Last administered on 02/17/21at 21:12; Start 02/17/21 at 22:00; Stop 02/18/21 at 21:59; Status DC Morphine Sulfate (Morphine Sulfate) 1 mg 1X ONCE IVP Last administered on 02/17/21at 11:20; Start 02/17/21 at 11:15; Stop 02/17/21 at 11:16; Status DC Lorazepam (Ativan Inj) 1 mg PRN Q4HRS PRN IVP ANXIETY / AGITATION Last administered on 02/18/21at 14:31; Start 02/17/21 at 11:15; Stop 02/18/21 at 14:43; Status DC Epinephrine (S2 Racepinephrine) 0.5 ml 1X ONCE NEB Last administered on 02/17/21at 15:29; Start 02/17/21 at 14:15; Stop 02/17/21 at 14:16; Status DC Furosemide (Lasix) 20 mg 1X ONCE IVP Last administered on 02/18/21at 07:09; Start 02/18/21 at 07:00; Stop 02/18/21 at 07:01; Status DC Albuterol Sulfate (Ventolin Neb Soln) 2.5 mg PRN Q4HRS PRN NEB WHEEZING Last administered on 02/19/21at 20:33; Start 02/18/21 at 06:45 Methylprednisolone Sodium Succinate (SOLU-Medrol 125MG VIAL) 125 mg 1X ONCE IV Last administered on 02/18/21at 08:07; Start 02/18/21 at 07:00; Stop 02/18/21 at 07:01; Status DC Methylprednisolone Sodium Succinate (SOLU-Medrol 40MG VIAL) 40 mg Q12HR IV Last administered on 02/19/21at 21:01; Start 02/18/21 at 09:00; Stop 02/20/21 at 09:05; Status DC Sodium Phosphate 15 mmol/Sodium Chloride 105 ml @ 105 mls/hr 1X ONCE IV Last administered on 02/18/21at 09:20; Start 02/18/21 at 10:00; Stop 02/18/21 at 10:59; Status DC Sodium Acetate 90 meq/Sodium Phosphate 20 mmol/ Potassium Chloride 30 meq/ Potassium Phosphate 20 mmol/ Multivitamins 10 ml/Zinc/Copper/ Manganese/ Selenium 1 ml/ Total Parenteral Nutrition/Amino Acids/Dextrose/ Fat Emulsion Intravenous 1,080 ml @ 45 mls/hr TPN CONT IV Last administered on 02/18/21at 21:35; Start 02/18/21 at 22:00; Stop 02/19/21 at 21:59; Status DC Budesonide (Pulmicort) 0.5 mg 1X ONCE NEB Last administered on 02/18/21at 11:39; Start 02/18/21 at 11:15; Stop 02/18/21 at 11:16; Status DC Budesonide (Pulmicort) 0.5 mg RTBID NEB Last administered on 02/20/21at 08:41; Start 02/18/21 at 20:00 Insulin Human Lispro (HumaLOG) 0-7 UNITS Q6HRS SQ Last administered on 02/20/21at 06:18; Start 02/18/21 at 12:00 Dextrose (Dextrose 50%-Water Syringe) 12.5 gm PRN Q15MIN PRN IV SEE COMMENTS; Start 02/18/21 at 12:00 Hydralazine HCl (Apresoline Inj) 10 mg PRN Q4HRS PRN IVP ELEVATED BP, SEE COMMENTS Last administered on 02/20/21at 07:34; Start 02/18/21 at 12:30 Fentanyl Citrate (Fentanyl 2ml Vial) 100 mcg STK-MED ONCE .ROUTE ; Start 02/19/21 at 08:01; Stop 02/19/21 at 08:02; Status DC Fentanyl Citrate (Fentanyl 2ml Vial) 50 mcg 1X ONCE IVP Last administered on 02/19/21at 08:06; Start 02/19/21 at 08:15; Stop 02/19/21 at 08:16; Status DC Furosemide (Lasix) 40 mg DAILY IVP Last administered on 02/20/21at 09:17; Start 02/19/21 at 11:45 Digoxin (Lanoxin) 500 mcg 1X ONCE IV Last administered on 02/19/21at 15:15; Start 02/19/21 at 14:45; Stop 02/19/21 at 14:46; Status DC Metoprolol Tartrate (Lopressor Vial) 5 mg Q6HRS IVP Last administered on 02/20/21at 04:25; Start 02/19/21 at 18:00 Famotidine (Pepcid Vial) 20 mg QHS IVP Last administered on 02/19/21at 21:02; Start 02/19/21 at 21:00 Sodium Phosphate 40 mmol/ Multivitamins 10 ml/Zinc/Copper/ Manganese/ Selenium 1 ml/ Total Parenteral Nutrition/Amino Acids/Dextrose/ Fat Emulsion Intravenous 1,080 ml @ 45 mls/hr TPN CONT IV Last administered on 02/19/21at 21:31; Start 02/19/21 at 22:00; Stop 02/20/21 at 21:59 Hydromorphone HCl (Dilaudid) 0.2 mg PRN Q4HRS PRN IVP PAIN; Start 02/20/21 at 08:30; Stop 02/20/21 at 09:05; Status DC Methylprednisolone Sodium Succinate (SOLU-Medrol 40MG VIAL) 60 mg Q8HRS IV ; Start 02/20/21 at 14:00 Fentanyl Citrate (Fentanyl 2ml Vial) 25 mcg PRN Q3HRS PRN IVP PAIN; Start 02/20/21 at 09:15 Active Scripts Active Reported Vitamin B12 (Cyanocobalamin (Vitamin B-12)) 2,500 Mcg Tablet 500 Mg PO BID Nexium Capsule (Esomeprazole Magnesium) 40 Mg Capsule.dr 1 Cap PO BID Calcium 600 + Vit D 800 Tab (Calcium Carbonate/Vitamin D3) 1 Each Tablet 1 Tab PO BID 30 Days Benefiber (Wheat Dextrin) 1 Each Powd.pack 1 Each PO DAILY Lisinopril 10 Mg Tablet 1 Tab PO DAILY Leflunomide 10 Mg Tablet 10 Mg PO DAILY Prednisone 2.5 Mg Tablet 5 Mg PO DAILY Metoprolol Tartrate 25 Mg Tablet 1 Tab PO DAILY Hydrocodone-Apap 5-325 (Hydrocodone Bit/Acetaminophen) 1 Tab Tablet 1 Tab PO PRN BID PRN Gabapentin 100 Mg Capsule 100 Mg PO PRN BID PRN Folic Acid 0.8 Mg Tablet 3 Mg PO DAILY Cymbalta (Duloxetine Hcl) 30 Mg Capsule.dr 1 Cap PO DAILY Prolia (Denosumab) 60 Mg/1 Ml Disp.syrin 1 Syr SQ [id number] 1 Days Celexa (Citalopram Hydrobromide) 10 Mg Tablet 1 Tab PO DAILY Alprazolam 0.25 Mg Tablet 0.25 Mg PO PRN DAILY PRN Vitals/I & O Vital Sign - Last 24 Hours 02/19/21 02/19/21 02/19/21 02/19/21 11:00 11:50 15:00 15:15 Temp 98.0 98.0 Pulse 145 142 145 Resp 22 16 B/P (MAP) 138/78 (98) 127/65 (85) 137/65 Pulse Ox 95 95 96 O2 Delivery Nasal Cannula Nasal Cannula Nasal Cannula O2 Flow Rate 3.0 4.0 3.0 02/19/21 02/19/21 02/19/21 02/19/21 16:10 18:17 19:00 20:00 Temp 98.6 98.6 Pulse 102 92 Resp 15 B/P (MAP) 165/75 177/71 (106) Pulse Ox 97 97 O2 Delivery Nasal Cannula Nasal Cannula Nasal Cannula O2 Flow Rate 4.0 3.0 3.0 02/19/21 02/19/21 02/19/21 02/20/21 20:20 20:43 23:00 00:00 Temp 98.5 98.5 Pulse 97 97 Resp 24 B/P (MAP) 181/85 (117) 181/85 Pulse Ox 98 95 95 O2 Delivery Nasal Cannula Nasal Cannula Nasal Cannula O2 Flow Rate 4.0 3.0 3.0 02/20/21 02/20/21 02/20/21 02/20/21 02:56 03:00 04:25 07:00 Temp 98.9 98.9 98.9 98.9 Pulse 97 106 144 98 Resp 18 18 B/P (MAP) 181/85 151/47 (81) 219/117 198/68 (111) Pulse Ox 98 98 O2 Delivery Nasal Cannula Nasal Cannula O2 Flow Rate 3.0 3.0 02/20/21 02/20/21 02/20/21 07:34 07:36 08:41 Pulse 102 102 B/P (MAP) 205/75 205/75 Pulse Ox 97 O2 Delivery Nasal Cannula O2 Flow Rate 3.0 Intake and Output 02/19/21 02/19/21 02/20/21 15:00 23:00 07:00 Intake Total 300.6 ml Output Total 285 ml 1030 ml 995 ml Balance -285 ml -1030 ml -694.4 ml Justicifation of Admission Dx: Justifications for Admission: Justification of Admission Dx: Yes ANIL CARBAJAL MD Feb 20, 2021 09:35
--- NOTE | 2021-02-20 09:42 | PDOC ---
DATE OF SERVICE DATE: 02/20/21 TIME: 09:40 SUBJECTIVE ROS Patient sleepy arousable, not answeringquestions OBJECTIVE Vital Signs Vital Signs Date Time Temp Pulse Resp B/P (MAP) Pulse Ox O2 Delivery O2 Flow Rate FiO2 02/20/21 08:41 97 Nasal Cannula 3.0 02/20/21 07:36 102 205/75 02/20/21 07:00 98.9 18 98.9 I & 0 Intake and Output 02/20/21 07:00 Intake Total 300.6 ml Output Total 2310 ml Balance -2009.4 ml IV Total 300.6 ml Output Urine Total 2210 ml Drainage Total 100 ml PHYSICAL EXAM Physical Exam GENERALNAD HEENT: Normocephalic, atraumatic. Anicteric. OM moist NECK: Supple. LUNGS: Decreased at bases, Non labored ABD Soft, drains serosang, dressing to incision EXT Mild LE edema , swelling + hands HEART: S1S2 NEURO : grossly nonfocal. Generalized weakness Barraza in place , No CVA or SP tenderness DIAGNOSIS/ASSESSMENT Assessment & Plan HyperKalemia - Resolved K ,Monitor MARILEE at presentation- Cr 1.3 resolved .BUN in 60's stable, likely sec to steroids UOP improved Hyper Natremia- Mild, Unable to take PO. Avoid Overdiuresis Monitor Hematuria - UA with RBC's , Barraza sample, No e/o UTI Anemia- decreasing Hgb, defer to primary Acute hypoxemic respiratory failure, multifactorial- Abnormal x-ray A. fib with rapid ventricular response Status post large ventral hernia repair on 02/13. Hypertension BP high COMMENT/RELEVANT DATA Meds Current Medications Medications (Trade) Dose Ordered Sig/Isael Start Time Stop Time Status Last Admin Dose Admin Acetaminophen (Tylenol) 1,000 mg 1X ONCE 02/15/21 20:15 02/15/21 20:16 DC 02/15/21 20:24 1,000 MG Albuterol Sulfate (Ventolin Neb Soln) 2.5 mg PRN Q4HRS PRN 02/18/21 06:45 02/19/21 20:33 2.5 MG Budesonide (Pulmicort) 0.5 mg RTBID 02/18/21 20:00 02/20/21 08:41 0.5 MG Cefazolin Sodium (Ancef) 1 gm 1X PREOP PRN 02/13/21 10:00 02/13/21 15:08 DC Cefazolin Sodium/ Dextrose 0 ml @ As Directed STK-MED ONCE 02/13/21 09:45 02/13/21 09:45 DC Cefepime HCl (Maxipime) 2 gm Q12HR 02/16/21 12:00 02/20/21 08:33 DC 02/19/21 21:02 2 GM Dexamethasone Sodium Phosphate (Decadron) 4 mg STK-MED ONCE 02/13/21 09:36 02/13/21 09:36 DC Dextrose (Dextrose 50%-Water Syringe) 12.5 gm PRN Q15MIN PRN 02/18/21 12:00 Digoxin (Lanoxin) 500 mcg 1X ONCE 02/19/21 14:45 02/19/21 14:46 DC 02/19/21 15:15 500 MCG Diltiazem HCl 125 mg/Sodium Chloride 125 ml @ 5 mls/hr CONT PRN 02/15/21 21:30 02/18/21 00:35 5 MLS/HR Enoxaparin Sodium (Lovenox 40mg Syringe) 40 mg Q24H 02/13/21 18:00 02/19/21 18:16 40 MG Epinephrine (S2 Racepinephrine) 0.5 ml 1X ONCE 02/17/21 14:15 02/17/21 14:16 DC 02/17/21 15:29 0.5 ML Famotidine (Pepcid Vial) 20 mg QHS 02/19/21 21:00 02/19/21 21:02 20 MG Fentanyl Citrate (Fentanyl 2ml Vial) 25 mcg PRN Q3HRS PRN 02/20/21 09:15 Furosemide (Lasix) 40 mg DAILY 02/19/21 11:45 02/20/21 09:17 40 MG Glycopyrrolate (Robinul) 1 mg STK-MED ONCE 02/13/21 16:33 02/13/21 16:33 DC Hydralazine HCl (Apresoline Inj) 10 mg PRN Q4HRS PRN 02/18/21 12:30 02/20/21 07:34 10 MG Hydromorphone HCl (Dilaudid) 0.2 mg PRN Q4HRS PRN 02/20/21 08:30 02/20/21 09:05 DC Info (FLU VACCINE SCREEN per RX) 1 each PRN DAILY PRN 02/14/21 23:30 Cancel Info (Tpn Per Pharmacy) 1 each PRN DAILY PRN 02/16/21 14:00 02/19/21 11:56 1 EACH Insulin Human Lispro (HumaLOG) 0-7 UNITS Q6HRS 02/18/21 12:00 02/20/21 06:18 4 UNITS Ipratropium [place] (Atrovent) 0.5 mg RTQID 02/16/21 08:00 02/20/21 08:41 0.5 MG Ketorolac Tromethamine (Toradol 15mg Vial) 15 mg 1X ONCE 02/14/21 09:15 02/14/21 09:19 DC 02/14/21 09:33 15 MG Lidocaine HCl (Lidocaine Pf 2% Vial) 5 ml STK-MED ONCE 02/13/21 09:36 02/13/21 09:36 DC Linezolid/Dextrose 300 ml @ 300 mls/hr Q12HR 02/16/21 12:00 02/19/21 10:34 DC 02/19/21 09:22 300 MLS/HR Lorazepam (Ativan Inj) 1 mg PRN Q4HRS PRN 02/17/21 11:15 02/18/21 14:43 DC 02/18/21 14:31 1 MG Methylprednisolone Sodium Succinate (SOLU-Medrol 40MG VIAL) 60 mg Q8HRS 02/20/21 14:00 Methylprednisolone Sodium Succinate (SOLU-Medrol 125MG VIAL) 125 mg 1X ONCE 02/18/21 07:00 02/18/21 07:01 DC 02/18/21 08:07 125 MG Metoprolol Tartrate (Lopressor Vial) 5 mg Q6HRS 02/19/21 18:00 02/20/21 04:25 5 MG Metronidazole 100 ml @ 100 mls/hr Q12HR 02/15/21 22:00 02/19/21 10:34 DC 02/19/21 09:21 100 MLS/HR Morphine Sulfate (Morphine Sulfate) 1 mg 1X ONCE 02/17/21 11:15 02/17/21 11:16 DC 02/17/21 11:20 1 MG Naloxone HCl (Narcan) 0.4 mg PRN Q2MIN PRN 02/13/21 17:15 02/19/21 08:26 0.4 MG Neostigmine [place] (Neostigmine Methylsulfate) 5 mg STK-MED ONCE 02/13/21 16:33 02/13/21 16:33 DC Ondansetron HCl (Zofran) 4 mg PRN Q6HRS PRN 02/13/21 17:15 02/19/21 08:26 4 MG Potassium Phosphate 15 mmol/ Sodium Chloride 105 ml @ 52.5 mls/hr 1X ONCE 02/16/21 15:00 02/16/21 16:59 DC 02/16/21 15:43 52.5 MLS/HR Prochlorperazine Edisylate (Compazine) 5 mg PACU PRN PRN 02/13/21 06:00 02/13/21 21:00 DC Propofol (Diprivan) 200 mg STK-MED ONCE 02/13/21 09:36 02/13/21 09:36 DC Ringer's Solution 1,000 ml @ 30 mls/hr Q24H 02/13/21 06:00 02/13/21 18:00 DC Rocuronium [place] (Zemuron) 50 mg STK-MED ONCE 02/13/21 13:53 02/13/21 13:54 DC Sodium Acetate 90 meq/Sodium Phosphate 20 mmol/ Potassium Chloride 30 meq/ Potassium Phosphate 20 mmol/ Multivitamins 10 ml/Zinc/Copper/ Manganese/ Selenium 1 ml/ Total Parenteral Nutrition/Amino Acids/Dextrose/ Fat Emulsion Intravenous 1,080 ml @ 45 mls/hr TPN CONT 02/18/21 22:00 02/19/21 21:59 DC 02/18/21 21:35 45 MLS/HR Sodium Chloride (Normal Saline Flush) 3 ml QSHIFT PRN 02/13/21 17:15 Sodium Chloride 90 meq/Potassium Chloride 50 meq/ Potassium Phosphate 20 mmol/ Magnesium Sulfate 10 meq/Calcium Gluconate 10 meq/ Multivitamins 10 ml/Zinc/Copper/ Manganese/ Selenium 1 ml/ Total Parenteral Nutrition/Amino Acids/Dextrose/ Fat Emulsion Intravenous 1,296 ml @ 54 mls/hr TPN CONT 02/16/21 22:00 02/17/21 21:59 DC 02/16/21 21:24 54 MLS/HR Sodium Chloride 90 meq/Sodium Phosphate 10 mmol/ Potassium Chloride 50 meq/ Potassium Phosphate 20 mmol/ Magnesium Sulfate 5 meq/ Multivitamins 10 ml/Zinc/Copper/ Manganese/ Selenium 1 ml/ Total Parenteral Nutrition/Amino Acids/Dextrose/ Fat Emulsion Intravenous 1,080 ml @ 45 mls/hr TPN CONT 02/17/21 22:00 02/18/21 21:59 DC 02/17/21 21:12 45 MLS/HR Sodium Phosphate 15 mmol/Sodium Chloride 105 ml @ 105 mls/hr 1X ONCE 02/18/21 10:00 02/18/21 10:59 DC 02/18/21 09:20 105 MLS/HR Sodium Phosphate 20 mmol/Sodium Chloride 256.6667 ml @ 64.167 m... 1X ONCE 02/17/21 09:15 02/17/21 13:14 UNV Sodium Phosphate 40 mmol/ Multivitamins 10 ml/Zinc/Copper/ Manganese/ Selenium 1 ml/ Total Parenteral Nutrition/Amino Acids/Dextrose/ Fat Emulsion Intravenous 1,080 ml @ 45 mls/hr TPN CONT 02/19/21 22:00 02/20/21 21:59 02/19/21 21:31 45 MLS/HR Succinylcholine Chloride (Anectine) 200 mg STK-MED ONCE 02/13/21 09:38 02/13/21 09:38 DC Vancomycin HCl (Vanco Per Pharmacy) 1 each PRN DAILY PRN 02/15/21 21:30 02/16/21 11:17 DC 02/16/21 03:40 1 EACH Vancomycin HCl (Vancomycin Trough Level) 1 each 1X ONCE 02/17/21 22:30 02/16/21 11:17 DC Vancomycin HCl 1.75 gm/Sodium Chloride 500 ml @ 250 mls/hr 1X ONCE 02/15/21 22:00 02/15/21 23:59 DC 02/15/21 23:00 250 MLS/HR Vancomycin HCl 1 gm/Sodium Chloride 250 ml @ 250 mls/hr Q24H 02/16/21 23:00 02/16/21 11:16 DC Lab Laboratory Tests Test 02/19/21 09:49 02/19/21 11:50 02/19/21 12:31 02/19/21 13:28 Urine Collection Type Unknown Urine Color Brown Urine Clarity Cloudy Urine pH (<5.0-8.0) Urine Specific [place] (1.000-1.030) Urine Protein mg/dL (NEG-TRACE) Urine Glucose (UA) mg/dL (NEG) Urine Ketones (Stick) mg/dL (NEG) Urine Blood (NEG) Urine Nitrite (NEG) Urine Bilirubin (NEG) Urine Urobilinogen Dipstick mg/dL (0.2 mg/dL) Urine Leukocyte Esterase (NEG) Urine RBC >40 /HPF (0-2) Urine WBC 1-4 /HPF (0-4) Urine Squamous Epithelial Cells Few /LPF Urine Bacteria 0 /HPF (0-FEW) Urine Yeast Present /HPF O2 Saturation 95 % (92-99) Arterial Blood pH 7.29 (7.35-7.45) Arterial Blood pCO2 at Patient Temp 36 mmHg (35-46) Arterial Blood pO2 at Patient Temp 83 mmHg (65-108) Arterial Blood HCO3 17 mmol/L (21-28) Arterial Blood Base Excess -9 mmol/L (-3-3) FiO2 36 Glucose (Fingerstick) 250 mg/dL (70-99) Creatine Kinase 219 U/L (26-192) Test 02/19/21 18:14 02/20/21 00:25 02/20/21 04:23 02/20/21 06:10 Glucose (Fingerstick) 135 mg/dL (70-99) 234 mg/dL (70-99) O2 Saturation 93 % (92-99) Arterial Blood pH 7.39 (7.35-7.45) Arterial Blood pCO2 at Patient Temp 30 mmHg (35-46) Arterial Blood pO2 at Patient Temp 72 mmHg (65-108) Arterial Blood HCO3 18 mmol/L (21-28) Arterial Blood Base Excess -7 mmol/L (-3-3) FiO2 32 White Blood Count 17.3 x10^3/uL (4.0-11.0) Red Blood Count 2.79 x10^6/uL (3.50-5.40) Hemoglobin 8.2 g/dL (12.0-15.5) Hematocrit 25.4 % (36.0-47.0) Mean Corpuscular Volume 91 fL (79-100) Mean Corpuscular Hemoglobin 29 pg (25-35) Mean Corpuscular Hemoglobin Concent 32 g/dL (31-37) Red Cell Distribution Width 16.6 % (11.5-14.5) Platelet Count 255 x10^3/uL (140-400) Neutrophils (%) (Auto) 90 % (31-73) Lymphocytes (%) (Auto) 2 % (24-48) Monocytes (%) (Auto) 8 % (0-9) Eosinophils (%) (Auto) 0 % (0-3) Basophils (%) (Auto) 0 % (0-3) Neutrophils # (Auto) 15.5 x10^3/uL (1.8-7.7) Lymphocytes # (Auto) 0.3 x10^3/uL (1.0-4.8) Monocytes # (Auto) 1.4 x10^3/uL (0.0-1.1) Eosinophils # (Auto) 0.0 x10^3/uL (0.0-0.7) Basophils # (Auto) 0.0 x10^3/uL (0.0-0.2) Sodium Level 149 mmol/L (136-145) Potassium Level 4.7 mmol/L (3.5-5.1) Chloride Level 116 mmol/L (98-107) Carbon Dioxide Level 23 mmol/L (21-32) Anion Gap 10 (6-14) Blood Urea Nitrogen 61 mg/dL (7-20) Creatinine 1.0 mg/dL (0.6-1.0) Estimated GFR (Cockcroft-Gault) 53.8 BUN/Creatinine Ratio 61 (6-20) Glucose Level 268 mg/dL (70-99) Calcium Level 6.9 mg/dL (8.5-10.1) Phosphorus Level 2.9 mg/dL (2.6-4.7) Magnesium Level 2.7 mg/dL (1.8-2.4) Total Bilirubin 0.6 mg/dL (0.2-1.0) Aspartate Amino Transf (AST/SGOT) 22 U/L (15-37) Alanine Aminotransferase (ALT/SGPT) 26 U/L (14-59) Alkaline Phosphatase 74 U/L (46-116) Total Protein 6.2 g/dL (6.4-8.2) Albumin 2.0 g/dL (3.4-5.0) Albumin/Globulin Ratio 0.5 (1.0-1.7) Test 02/20/21 06:17 Glucose (Fingerstick) 219 mg/dL (70-99) Results All relevant outside records, renal labs, imaging studies, telemetry/EKG's were reviewed. Justicifation of Admission Dx: Justifications for Admission: Justification of Admission Dx: Yes ARMINDA LYMAN MD Feb 20, 2021 09:42
[2021-02-20 11:00] VITALS: BP 184/76
[2021-02-20] MEDS: TPN PER PHARMACY MC PRN (11:39)
--- NOTE | 2021-02-20 11:42 | NUR ---
Pharmacy TPN Dosing Note S: LYNDSEY JOSUE is a 75 year old F Currently receiving Central Continuous TPN started 02/16/21 B:Pertinent PMH: NPO s/p hernia repair Height: 4 feet, 9 inches Weight: 74.2 kg Current diet: clears LABS: Sodium: 149 Potassium: 4.7 Chloride: 116 Calcium: 6.9 Corrected Calcium: 8.50 Magnesium: 2.7 CO2: 23 SCr: 1 Glucose: 135-268 Albumin: 2.0 AST: 22 ALT: 26 TPN FORMULA: TPN TYPE: Central Continuous AMINO ACIDS: 60 gm DEXTROSE: 195 gm LIPIDS: 20 gm SODIUM CHLORIDE: -- mEq SODIUM ACETATE: -- mEq SODIUM PHOSPHATE: 40 mmol POTASSIUM CHLORIDE: -- mEq POTASSIUM ACETATE: -- mEq POTASSIUM PHOSPHATE: -- mmol MAGNESIUM: -- mEq CALCIUM: -- mEq INSULIN: -- units MULTIPLE VITAMIN: 10 ml TRACE ELEMENTS: 1 ml(s) TPN PLAN: -Continue macros per subassembler recommendations -Due to potassium of 5.8 yesterday TPN held yesterday and re-started last night. Current TPN does not contain any potassium. Potassium within normal range today at 4.7. -Additionally, sodium chloride removed yesterday as Kphos converted to sodium phos. Of note, with TPN being held yesterday afternoon. For these reasons above no additional adjustments will be made to the TPN at this time. -Patient on SSI. -BMP, Mag and Phos ordered for tomorrow AM R: Continue current TPN with no additional adjustments made at this time. Will monitor electrolytes, glucose, and tolerance to TPN. AMOS MICHAEL, [facility], 02/20/21 [id number]
--- NOTE | 2021-02-20 12:43 | PDOC ---
ALVIN ORANTES MODEL MAKER 02/20/21 1243: CARDIO Progress Notes Date and Time Date of Service 02/20/2021 Time of Evaluation 1230 Subjective Subjective: Other (moans at times) Vitals Vitals Vital Signs Date Time Temp Pulse Resp B/P (MAP) Pulse Ox O2 Delivery O2 Flow Rate FiO2 02/20/21 11:00 98.3 104 18 184/76 (112) 97 Nasal Cannula 3.0 98.3 Weight Weight [ ] Input and Output Intake and Output Intake and Output 02/20/21 07:00 Intake Total 300.6 ml Output Total 2310 ml Balance -2009.4 ml IV Total 300.6 ml Output Urine Total 2210 ml Drainage Total 100 ml Laboratory Labs Laboratory Tests Test 02/19/21 13:28 02/19/21 18:14 02/20/21 00:25 02/20/21 04:23 Creatine Kinase 219 U/L (26-192) Glucose (Fingerstick) 135 mg/dL (70-99) 234 mg/dL (70-99) O2 Saturation 93 % (92-99) Arterial Blood pH 7.39 (7.35-7.45) Arterial Blood pCO2 at Patient Temp 30 mmHg (35-46) Arterial Blood pO2 at Patient Temp 72 mmHg (65-108) Arterial Blood HCO3 18 mmol/L (21-28) Arterial Blood Base Excess -7 mmol/L (-3-3) FiO2 32 Test 02/20/21 06:10 02/20/21 06:17 White Blood Count 17.3 x10^3/uL (4.0-11.0) Red Blood Count 2.79 x10^6/uL (3.50-5.40) Hemoglobin 8.2 g/dL (12.0-15.5) Hematocrit 25.4 % (36.0-47.0) Mean Corpuscular Volume 91 fL (79-100) Mean Corpuscular Hemoglobin 29 pg (25-35) Mean Corpuscular Hemoglobin Concent 32 g/dL (31-37) Red Cell Distribution Width 16.6 % (11.5-14.5) Platelet Count 255 x10^3/uL (140-400) Neutrophils (%) (Auto) 90 % (31-73) Lymphocytes (%) (Auto) 2 % (24-48) Monocytes (%) (Auto) 8 % (0-9) Eosinophils (%) (Auto) 0 % (0-3) Basophils (%) (Auto) 0 % (0-3) Neutrophils # (Auto) 15.5 x10^3/uL (1.8-7.7) Lymphocytes # (Auto) 0.3 x10^3/uL (1.0-4.8) Monocytes # (Auto) 1.4 x10^3/uL (0.0-1.1) Eosinophils # (Auto) 0.0 x10^3/uL (0.0-0.7) Basophils # (Auto) 0.0 x10^3/uL (0.0-0.2) Sodium Level 149 mmol/L (136-145) Potassium Level 4.7 mmol/L (3.5-5.1) Chloride Level 116 mmol/L (98-107) Carbon Dioxide Level 23 mmol/L (21-32) Anion Gap 10 (6-14) Blood Urea Nitrogen 61 mg/dL (7-20) Creatinine 1.0 mg/dL (0.6-1.0) Estimated GFR (Cockcroft-Gault) 53.8 BUN/Creatinine Ratio 61 (6-20) Glucose Level 268 mg/dL (70-99) Calcium Level 6.9 mg/dL (8.5-10.1) Phosphorus Level 2.9 mg/dL (2.6-4.7) Magnesium Level 2.7 mg/dL (1.8-2.4) Total Bilirubin 0.6 mg/dL (0.2-1.0) Aspartate Amino Transf (AST/SGOT) 22 U/L (15-37) Alanine Aminotransferase (ALT/SGPT) 26 U/L (14-59) Alkaline Phosphatase 74 U/L (46-116) Total Protein 6.2 g/dL (6.4-8.2) Albumin 2.0 g/dL (3.4-5.0) Albumin/Globulin Ratio 0.5 (1.0-1.7) Glucose (Fingerstick) 219 mg/dL (70-99) Physical Exam HEENT: Neck Supple W Full Motion Chest: Symmetric LUNGS: Other (diminished bases) Heart: RRR (SR/ST with PACs), other (Aflutter with RVR) Abdomen: Other (obese; abdominal incision) Extremities: Other (1-2+ bilateral LE edema ) Neurology: other (lethargic) Assessment Assessment 1. S/p ventricular hernia repair 02/13 2. Post-op AFIB/flutter with RVR; maintaining SR with PACs 3. Acute respiratory failure with AECOPD, CHF 4. Acute diastolic CHF; echo with preserved LV systolic function 5. Hypertensive urgency; labile likely from nociceptive pain 6. Anemia; hgb drift to 8.2 7. H/o breast CA s/p radiation 8. Hyperkalemia; resolved 9. Encephalopathy: remains lethargic Recommendations Presently NPO Continue metoprolol IV [id number] 5 correlating with a 7.2% risk of stroke per year. On Lovenox for DVT prophylaxis presently. Will hold off on increasing to treatment dosing at this time given downward trend in hgb. Hydralazine PRN for BP control. Start on transdermal NTG Lasix therapy. Transfuse as warranted Continue post-op management per surgical team Analgesia per PCP Justicifation of Admission Dx: Justifications for Admission: Justification of Admission Dx: Yes ALICE LOVE MD 02/21/21 0913: CARDIO Progress Notes Assessment Assessment Patient seen and examined 02/20/2021. Agree with [employer]IST's assessment and plan. Postoperative atrial fibrillation/flutter, presently maintaining sinus rhythm. Continue metoprolol. Acute on chronic diastolic heart failure better compensated after diuresis. Continue postop care per general surgery team. ALVIN ORANTES APRN Feb 20, 2021 12:43 ALICE LOVE MD Feb 21, 2021 09:13
[2021-02-20] MEDS ORDERED: hydrALAZINE 20 MG/ML VIAL. IVP ONE (12:45)
[2021-02-20] MEDS: NITROGLYCERIN OINT 1 GM PACKET. TP SCH ×2 (13:06→18:02)
[2021-02-20] MEDS: methylPREDNISolone SOD SUCC PF 40 MG/ML VIAL. IV SCH ×2 (14:00→22:46)
--- NOTE | 2021-02-20 14:09 | NUR ---
SS following up with discharge planning. SS reviewed pt chart and discussed with pt RN. Pt is currently requiring oxygen at three liters nasal canula. Pt on TPN, IV Lasix, and IV Solu-Medrol. Pt has home oxygen. Pt upgraded to CVC. SS will continue to follow for discharge planning.
[2021-02-20 15:00] VITALS: BP 191/68
[2021-02-20] MEDS ORDERED: ENALAPRILAT 1.25 MG/ML VIAL. IVP ONE (16:00)
--- NOTE | 2021-02-20 16:05 | NUR ---
Wound/Ostomy Care Wound Type/Assessment: Wound care follow up for right lateral upper leg PU, wound noted to have developed a blister to the posterior side of it, blister intact. Upon skin assessment intact blister noted on right medial upper leg, right heel noted to have a stage 1 PU. Left heel is red but blanchable, foam applied for protection. See skin intervention for further details. All wounds cleansed, assessed, measured, and pictured. Treatment Recommendations/Plan: Cleanse all wounds and pat dry. Right lateral and medial upper leg: paint with skin prep daily. Right heel: paint with skin prep and apply foam. Use heel medix boots for offloading. Change dressing q3-4 days Left heel: apply foam for protection Education provided: Patient confused, unable to educate. Pt daughter is a nurse and at bedside POC for PU prevention/healing reviewed with her. Offloading surface/device: Turn q2h hours, purple wedge, heel medix boots (ordered) Recommended Referrals/Tests: N/A Discharge Recommendations for dressings: Dressing change instructions left in room. Wound care will f/u on 02/28.
[2021-02-20] MEDS: ENOXAPARIN 40 MG/0.4 ML SYRINGE. SQ SCH (16:50)
[2021-02-20] MEDS: fentaNYL PF VIAL 100 MCG/2 ML VIAL IVP PRN ×3 (17:09→19:35)
[2021-02-20] MEDS: IV NORMAL SALINE 1000ML BAG 1,000 ML IV SCH (17:15)
[2021-02-20 19:59] VITALS: BP 183/76
[2021-02-20] MEDS ORDERED: DEXTROSE 70% IV SCH (22:00)
[2021-02-20] MEDS ORDERED: TOTAL PARENTERAL NUTRITION IV SCH (22:00)
[2021-02-20] MEDS ORDERED: AMINO ACID IV SCH (22:00)
[2021-02-20] MEDS ORDERED: [UNRECOGNIZED DRUG - OTHER] IV SCH (22:00)
[2021-02-20 22:38] VITALS: BP 167/70
[2021-02-20] MEDS: FAMOTIDINE 20 MG/2 ML VIAL IVP SCH (22:45)
[2021-02-20] MEDS: ONDANSETRON PF 4 MG/2 ML VIAL. IVP PRN (22:47)
[2021-02-20] MEDS: INSULIN GLARGINE SYRINGE. SQ SCH (22:59)
[2021-02-21] VITALS (32 sets, daily range): BP systolic 152–226; BP diastolic 65–131
[2021-02-21] MEDS: NITROGLYCERIN OINT 1 GM PACKET. TP SCH ×5 (00:22→23:54)
[2021-02-21] MEDS: fentaNYL PF VIAL 100 MCG/2 ML VIAL IVP PRN ×5 (00:23→08:03)
[2021-02-21] MEDS: METOPROLOL IV PUSH 5 MG/5 ML VIAL. IVP PRN (03:30)
[2021-02-21 04:34] LABS: BASO # 0.1 x10^3/uL (0.0-0.2); BASO % 0 % (0-3); EOS % 0 % (0-3); HEMATOCRIT 25.7 % (36.0-47.0); HEMOGLOBIN 8.1 g/dL (12.0-15.5); LYMPH # 0.6 x10^3/uL (1.0-4.8); LYMPH % 3 % (24-48); MEAN CORPUSCULAR HEMOGLOBIN 28 pg (25-35); MEAN CORPUSCULAR HGB CONC 32 g/dL (31-37); MEAN CORPUSCULAR VOLUME 90 fL (79-100); MONO # 1.2 x10^3/uL (0.0-1.1); MONO % 6 % (0-9); NEUT # 17.3 x10^3/uL (1.8-7.7); NEUT % 90 % (31-73); PLATELET COUNT 278 x10^3/uL (140-400); RED BLOOD COUNT 2.85 x10^6/uL (3.50-5.40); RED CELL DISTRIBUTION WIDTH 16.1 % (11.5-14.5); WHITE BLOOD COUNT 19.2 x10^3/uL (4.0-11.0)
[2021-02-21 04:45] LABS: CALCIUM 6.8 mg/dL (8.5-10.1); CREATININE 0.9 mg/dL (0.6-1.0); GFR 60.7; MAGNESIUM 2.8 mg/dL (1.8-2.4); PHOSPHORUS 2.9 mg/dL (2.6-4.7); POTASSIUM 3.6 mmol/L (3.5-5.1)
[2021-02-21] MEDS: INSULIN LISPRO 300 UNITS/3 ML VIAL. SQ SCH ×5 (06:00→23:55)
--- NOTE | 2021-02-21 06:51 | PDOC ---
Infectious Disease Note Subjective: Subjective Patient still very weak Had arrhythmias per discussion with RN Little more alert today Unable to take anything p.o. Remains afebrile Discussed with RN at bedside Vital Signs: Vital Signs Vital Signs Date Time Temp Pulse Resp B/P (MAP) Pulse Ox O2 Delivery O2 Flow Rate FiO2 02/21/21 03:30 156 177/79 02/21/21 03:08 98.6 20 92 Nasal Cannula 3.0 98.6 Physical Exam: PHYSICAL EXAM GENERAL: Sleepy, briefly arouses, answers only a few questions HEENT: Normocephalic, atraumatic. Anicteric. Dry mouth NECK: Supple. No JVD. LUNGS: Rales present + for wheezing HEART: Irregularly irregular no murmurs appreciated ABDOMEN: Obese ,mildly distended, binder in place, not taken down, intact dry Hypoactive bowel sounds [address] EXTREMITIES mild edema present, no cyanosis MUSCULOSKELETAL: No joint swelling. No decrease in range of motion. CENTRAL NERVOUS SYSTEM: Sleepy, arousable does not answer any questions PSYCHIATRIC: Cooperative, sleepy PICC line clean Medications: Inpatient Meds: Medications reviewed. Labs: Lab Laboratory Tests Test 02/20/21 12:37 02/20/21 18:04 02/21/21 00:19 02/21/21 04:20 Glucose (Fingerstick) 239 mg/dL (70-99) 241 mg/dL (70-99) 185 mg/dL (70-99) White Blood Count 19.2 x10^3/uL (4.0-11.0) Red Blood Count 2.85 x10^6/uL (3.50-5.40) Hemoglobin 8.1 g/dL (12.0-15.5) Hematocrit 25.7 % (36.0-47.0) Mean Corpuscular Volume 90 fL (79-100) Mean Corpuscular Hemoglobin 28 pg (25-35) Mean Corpuscular Hemoglobin Concent 32 g/dL (31-37) Red Cell Distribution Width 16.1 % (11.5-14.5) Platelet Count 278 x10^3/uL (140-400) Neutrophils (%) (Auto) 90 % (31-73) Lymphocytes (%) (Auto) 3 % (24-48) Monocytes (%) (Auto) 6 % (0-9) Eosinophils (%) (Auto) 0 % (0-3) Basophils (%) (Auto) 0 % (0-3) Neutrophils # (Auto) 17.3 x10^3/uL (1.8-7.7) Lymphocytes # (Auto) 0.6 x10^3/uL (1.0-4.8) Monocytes # (Auto) 1.2 x10^3/uL (0.0-1.1) Eosinophils # (Auto) 0.0 x10^3/uL (0.0-0.7) Basophils # (Auto) 0.1 x10^3/uL (0.0-0.2) Sodium Level 156 mmol/L (136-145) Potassium Level 3.6 mmol/L (3.5-5.1) Chloride Level 120 mmol/L (98-107) Carbon Dioxide Level 28 mmol/L (21-32) Anion Gap 8 (6-14) Blood Urea Nitrogen 56 mg/dL (7-20) Creatinine 0.9 mg/dL (0.6-1.0) Estimated GFR (Cockcroft-Gault) 60.7 Glucose Level 268 mg/dL (70-99) Calcium Level 6.8 mg/dL (8.5-10.1) Phosphorus Level 2.9 mg/dL (2.6-4.7) Magnesium Level 2.8 mg/dL (1.8-2.4) Test 02/21/21 06:22 Glucose (Fingerstick) 200 mg/dL (70-99) Objective: Assessment: Status post large ventral hernia repair on February 12, 2021 Possible ileus Encephalopathy appears metabolic Leukocytosis on steroids Febrile illness resolved Anemia A. fib with RVR CHF Renal insufficiency Rheumatoid arthritis Depression History of breast cancer Hypertension Hyperkalemia Plan: Plan of Care Start zosyn was on cefepime encephalopathy appears metabolic Leukocytosis also on steroids General surgery following Continue local wound care/drain management as directed Continue aspiration precautions Maintain aspiration precautions Discussed with at bedside D/W MELINDA WALLACE MD Feb 21, 2021 06:51
[2021-02-21] MEDS: methylPREDNISolone SOD SUCC PF 40 MG/ML VIAL. IV SCH ×3 (08:01→21:21)
[2021-02-21] MEDS: METOPROLOL IV PUSH 5 MG/5 ML VIAL. IVP SCH ×4 (08:02→23:54)
[2021-02-21] MEDS: IPRATROPIUM BROMIDE 0.5 MG/2.5 ML NEBU. NEB SCH ×4 (08:11→19:44)
[2021-02-21] MEDS: BUDESONIDE 0.5 MG/2 ML NEBU. NEB SCH ×2 (08:11→19:44)
--- NOTE | 2021-02-21 08:19 | NUR ---
PT TRANSFERED UP FROM ICU LAST EVENING, NOT LONG AFTER ARRIVING SHE WAS IN AFIB RVR AT 0015 GUILLAUME PORTER STARTED IV CARDIZEM PRN ORDER, THEN ABOUT 0500 HR 140's AND BP ELEVATED. GAVE A PRN LABETOLOL. AND PAIN MEDS WHICH DIDNT HELP ON HR AND BP. THEN AT 0700 HR 130'S PT IS IN PAIN. ADMIN NITRO OINTMENT , IV FENTANYL AND IV LOPRESSOR HR 74 AND A FLUTTER. AT BEDSIDE. HR NOW AT 0824 IS 74 AND BP 187/89. GUILLAUME RODRIGUEZ WILL RECHECK BP. AT BEDSIDE AND PT IS PERKIER AND RELAXED. EXPALINED TO WHAT MEDS WERE BEING GIVEN AND WHAT IT WAS FOR. LCRN
[2021-02-21] MEDS: FUROSEMIDE 40 MG/4 ML VIAL. IVP SCH (08:37)
[2021-02-21] MEDS: PIPERACILLIN/TAZOBACTAM 3.375 GM in IV NORMAL SALINE 50ML 50 ML IV SCH ×4 (08:55→23:53)
--- NOTE | 2021-02-21 09:11 | NUR ---
PT IN NSR HR 92. LCRN
--- NOTE | 2021-02-21 10:17 | PDOC ---
PULMONARY PROGRESS NOTES DATE: 02/21/21 TIME: 10:13 Subjective Patient is less confused. Opens eyes and more awake since yesterday. She is off Dilaudid. Vitals Vital Signs Date Time Temp Pulse Resp B/P (MAP) Pulse Ox O2 Delivery O2 Flow Rate FiO2 02/21/21 08:11 97 Nasal Cannula 3.0 02/21/21 08:03 136 210/79 02/21/21 03:08 98.6 20 98.6 Comments ros as mentioned above other sys otherwise neg General: Confused Lungs: Wheezing (Resolved) Cardiovascular: Other (irreg irreg ) Abdomen: Soft, Other (Tender in the lower quadrants) Skin: Warm Labs Laboratory Tests Test 02/19/21 11:50 02/19/21 12:31 02/19/21 13:28 02/19/21 18:14 O2 Saturation 95 % (92-99) Arterial Blood pH 7.29 (7.35-7.45) Arterial Blood pCO2 at Patient Temp 36 mmHg (35-46) Arterial Blood pO2 at Patient Temp 83 mmHg (65-108) Arterial Blood HCO3 17 mmol/L (21-28) Arterial Blood Base Excess -9 mmol/L (-3-3) FiO2 36 Glucose (Fingerstick) 250 mg/dL (70-99) 135 mg/dL (70-99) Creatine Kinase 219 U/L (26-192) Test 02/20/21 00:25 02/20/21 04:23 02/20/21 06:10 02/20/21 06:17 Glucose (Fingerstick) 234 mg/dL (70-99) 219 mg/dL (70-99) O2 Saturation 93 % (92-99) Arterial Blood pH 7.39 (7.35-7.45) Arterial Blood pCO2 at Patient Temp 30 mmHg (35-46) Arterial Blood pO2 at Patient Temp 72 mmHg (65-108) Arterial Blood HCO3 18 mmol/L (21-28) Arterial Blood Base Excess -7 mmol/L (-3-3) FiO2 32 White Blood Count 17.3 x10^3/uL (4.0-11.0) Red Blood Count 2.79 x10^6/uL (3.50-5.40) Hemoglobin 8.2 g/dL (12.0-15.5) Hematocrit 25.4 % (36.0-47.0) Mean Corpuscular Volume 91 fL (79-100) Mean Corpuscular Hemoglobin 29 pg (25-35) Mean Corpuscular Hemoglobin Concent 32 g/dL (31-37) Red Cell Distribution Width 16.6 % (11.5-14.5) Platelet Count 255 x10^3/uL (140-400) Neutrophils (%) (Auto) 90 % (31-73) Lymphocytes (%) (Auto) 2 % (24-48) Monocytes (%) (Auto) 8 % (0-9) Eosinophils (%) (Auto) 0 % (0-3) Basophils (%) (Auto) 0 % (0-3) Neutrophils # (Auto) 15.5 x10^3/uL (1.8-7.7) Lymphocytes # (Auto) 0.3 x10^3/uL (1.0-4.8) Monocytes # (Auto) 1.4 x10^3/uL (0.0-1.1) Eosinophils # (Auto) 0.0 x10^3/uL (0.0-0.7) Basophils # (Auto) 0.0 x10^3/uL (0.0-0.2) Sodium Level 149 mmol/L (136-145) Potassium Level 4.7 mmol/L (3.5-5.1) Chloride Level 116 mmol/L (98-107) Carbon Dioxide Level 23 mmol/L (21-32) Anion Gap 10 (6-14) Blood Urea Nitrogen 61 mg/dL (7-20) Creatinine 1.0 mg/dL (0.6-1.0) Estimated GFR (Cockcroft-Gault) 53.8 BUN/Creatinine Ratio 61 (6-20) Glucose Level 268 mg/dL (70-99) Calcium Level 6.9 mg/dL (8.5-10.1) Phosphorus Level 2.9 mg/dL (2.6-4.7) Magnesium Level 2.7 mg/dL (1.8-2.4) Total Bilirubin 0.6 mg/dL (0.2-1.0) Aspartate Amino Transf (AST/SGOT) 22 U/L (15-37) Alanine Aminotransferase (ALT/SGPT) 26 U/L (14-59) Alkaline Phosphatase 74 U/L (46-116) Total Protein 6.2 g/dL (6.4-8.2) Albumin 2.0 g/dL (3.4-5.0) Albumin/Globulin Ratio 0.5 (1.0-1.7) Test 02/20/21 12:37 02/20/21 18:04 02/21/21 00:19 02/21/21 04:20 Glucose (Fingerstick) 239 mg/dL (70-99) 241 mg/dL (70-99) 185 mg/dL (70-99) White Blood Count 19.2 x10^3/uL (4.0-11.0) Red Blood Count 2.85 x10^6/uL (3.50-5.40) Hemoglobin 8.1 g/dL (12.0-15.5) Hematocrit 25.7 % (36.0-47.0) Mean Corpuscular Volume 90 fL (79-100) Mean Corpuscular Hemoglobin 28 pg (25-35) Mean Corpuscular Hemoglobin Concent 32 g/dL (31-37) Red Cell Distribution Width 16.1 % (11.5-14.5) Platelet Count 278 x10^3/uL (140-400) Neutrophils (%) (Auto) 90 % (31-73) Lymphocytes (%) (Auto) 3 % (24-48) Monocytes (%) (Auto) 6 % (0-9) Eosinophils (%) (Auto) 0 % (0-3) Basophils (%) (Auto) 0 % (0-3) Neutrophils # (Auto) 17.3 x10^3/uL (1.8-7.7) Lymphocytes # (Auto) 0.6 x10^3/uL (1.0-4.8) Monocytes # (Auto) 1.2 x10^3/uL (0.0-1.1) Eosinophils # (Auto) 0.0 x10^3/uL (0.0-0.7) Basophils # (Auto) 0.1 x10^3/uL (0.0-0.2) Sodium Level 156 mmol/L (136-145) Potassium Level 3.6 mmol/L (3.5-5.1) Chloride Level 120 mmol/L (98-107) Carbon Dioxide Level 28 mmol/L (21-32) Anion Gap 8 (6-14) Blood Urea Nitrogen 56 mg/dL (7-20) Creatinine 0.9 mg/dL (0.6-1.0) Estimated GFR (Cockcroft-Gault) 60.7 Glucose Level 268 mg/dL (70-99) Calcium Level 6.8 mg/dL (8.5-10.1) Phosphorus Level 2.9 mg/dL (2.6-4.7) Magnesium Level 2.8 mg/dL (1.8-2.4) Test 02/21/21 06:22 Glucose (Fingerstick) 200 mg/dL (70-99) Laboratory Tests Test 02/20/21 12:37 02/20/21 18:04 02/21/21 00:19 02/21/21 04:20 Glucose (Fingerstick) 239 mg/dL (70-99) 241 mg/dL (70-99) 185 mg/dL (70-99) White Blood Count 19.2 x10^3/uL (4.0-11.0) Red Blood Count 2.85 x10^6/uL (3.50-5.40) Hemoglobin 8.1 g/dL (12.0-15.5) Hematocrit 25.7 % (36.0-47.0) Mean Corpuscular Volume 90 fL (79-100) Mean Corpuscular Hemoglobin 28 pg (25-35) Mean Corpuscular Hemoglobin Concent 32 g/dL (31-37) Red Cell Distribution Width 16.1 % (11.5-14.5) Platelet Count 278 x10^3/uL (140-400) Neutrophils (%) (Auto) 90 % (31-73) Lymphocytes (%) (Auto) 3 % (24-48) Monocytes (%) (Auto) 6 % (0-9) Eosinophils (%) (Auto) 0 % (0-3) Basophils (%) (Auto) 0 % (0-3) Neutrophils # (Auto) 17.3 x10^3/uL (1.8-7.7) Lymphocytes # (Auto) 0.6 x10^3/uL (1.0-4.8) Monocytes # (Auto) 1.2 x10^3/uL (0.0-1.1) Eosinophils # (Auto) 0.0 x10^3/uL (0.0-0.7) Basophils # (Auto) 0.1 x10^3/uL (0.0-0.2) Sodium Level 156 mmol/L (136-145) Potassium Level 3.6 mmol/L (3.5-5.1) Chloride Level 120 mmol/L (98-107) Carbon Dioxide Level 28 mmol/L (21-32) Anion Gap 8 (6-14) Blood Urea Nitrogen 56 mg/dL (7-20) Creatinine 0.9 mg/dL (0.6-1.0) Estimated GFR (Cockcroft-Gault) 60.7 Glucose Level 268 mg/dL (70-99) Calcium Level 6.8 mg/dL (8.5-10.1) Phosphorus Level 2.9 mg/dL (2.6-4.7) Magnesium Level 2.8 mg/dL (1.8-2.4) Test 02/21/21 06:22 Glucose (Fingerstick) 200 mg/dL (70-99) Medications Active Scripts Medications Dose Route/Sig Max Daily Dose Days Date Category Vitamin B12 (Cyanocobalamin (Vitamin B-12)) 2,500 Mcg Tablet 500 Mg PO BID 02/15/21 Reported Nexium Capsule (Esomeprazole Magnesium) 40 Mg Capsule.dr Ruiz Cap PO BID 02/15/21 Reported Calcium 600 + Vit D 800 Tab (Calcium Carbonate/Vitamin D3) 1 Each Tablet 1 Tab PO BID 30 02/15/21 Reported Benefiber (Wheat Dextrin) 1 Each Powd.pack 1 Each PO DAILY 02/15/21 Reported Lisinopril 10 Mg Tablet 1 Tab PO DAILY 02/15/21 Reported Leflunomide 10 Mg Tablet 10 Mg PO DAILY 02/15/21 Reported Prednisone 2.5 Mg Tablet 5 Mg PO DAILY 02/15/21 Reported Metoprolol Tartrate 25 Mg Tablet 1 Tab PO DAILY 02/15/21 Reported Hydrocodone-Apap 5-325 (Hydrocodone Bit/Acetaminophen) 1 Tab Tablet 1 Tab PO PRN BID PRN 02/15/21 Reported Gabapentin 100 Mg Capsule 100 Mg PO PRN BID PRN 02/15/21 Reported Folic Acid 0.8 Mg Tablet 3 Mg PO DAILY 02/15/21 Reported Cymbalta (Duloxetine Hcl) 30 Mg Capsule.dr Ruiz Cap PO DAILY 02/15/21 Reported Prolia (Denosumab) 60 Mg/1 Ml Disp.syrin 1 Syr SQ [id number] 1 02/15/21 Reported Celexa (Citalopram Hydrobromide) 10 Mg Tablet 1 Tab PO DAILY 02/15/21 Reported Alprazolam 0.25 Mg Tablet 0.25 Mg PO PRN DAILY PRN 02/15/21 Reported Comments Chest x-ray from 02/19 Interstitial infiltrates in the right upper lung. Impression . IMPRESSION: 1. Acute hypoxemic respiratory failure, multifactorial. 2. Abnormal x-ray, compatible with effusion, possibly congestive heart failure. Possible pneumonia. She does have underlying interstitial lung disease likely related to rheumatoid arthritis. 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 A. fib with rapid ventricular response 4. Leukocytosis. 5. Fever. 6. Status post large ventral hernia repair on 02/13. 7. Rheumatoid arthritis with previously diagnosed as interstitial lung disease. 8. Hypertension. 9. Breast cancer, status post radiation. 10. Tobacco dependence, in remission. 11. Chronic obstructive pulmonary disease, unknown FEV1 12. Multifactorial encephalopathy/delirium/toxic encephalopathy contributed by Dilaudid., Clinically improving. Plan . Updated 02/21 Discussed with patient's and RN She is clinically improving. She is off the Dilaudid. She is currently receiving fentanyl every hour as needed. I would reduce the frequency to every 2 hours as needed. At this point no need to do CT head. Antibiotics per ID IV Lasix daily Chest x-ray as needed Cardiology to address hypertension and A. fib Avoid sedating from medication Nephrology has been consulted Audible wheezing is due to tracheobronchomalacia. Improved. Will slowly taper Solu-Medrol. Continue with nebulizers Discussed with at the bedside, explained to him in detail patient's condition as well as plan for today. Updated 02/20 Discussed with patient's and RN and RT. At this time I would discontinue Dilaudid LIC[employer]ED [employer] WORK[employer]. Use fentanyl as needed 25 max every 3 hours. Expect to see an improvement in her mental status. If there is no improvement in mental status, will do CT head. Antibiotics per ID IV Lasix daily Repeat arterial blood gas from yesterday did not reveal any hypercapnia. Chest x-ray as needed Cardiology to address hypertension and A. fib Avoid sedating from medication Nephrology has been consulted Audible wheezing is due to tracheobronchomalacia. Increase Solu-Medrol. Continue with nebulizers Discussed with at the bedside, explained to him in detail patient's con dition as well as plan for today. Critical care time 30 minutes PLAN: 1. wheezing suspect a combination of chf and copd w ae/bronchospasm lasix 20 mg iv now solumedrol 125 mg now add duo neb prn add ics start solumedrol 40 mg iv q 12 titrate fio2 to keep sat 92% start bipap prn and qhs obese suspect has fernando 2. Empiric antibiotics. zyvox cefepime 3. Chest x-ray reviewed, CHF. follow Cardiology rec 4. on cardizem gtt afib rate controlled 5. Diurese monitor k cr 6. start IS 7. change solumedrol to 40 daily 8. BD atrovent only avoid albuterol 9. lovenox for dvt prophylaxis discussed w rn critically ill cct 30 no overlap MACIEJ YOUNG MD Feb 21, 2021 10:17
--- NOTE | 2021-02-21 10:19 | PDOC ---
[facility] PROGRESS NOTE Date of Service DOS: DATE: 02/21/21 TIME: 09:57 Chief Complaint Chief Complaint A/P: Abdominal pain S/p ventricular hernia repair 02/13 Post-op AFIB/flutter with RVR - SR with PACs. on lovenox ppx dosing and IV metoprolol Acute respiratory failure - likely secondary to acute COPD and acute diastolic CHF worsened by Afib as above Acute diastolic CHF - cardiology following, Echo with no reduction in Hypertensive urgency - seems to be due to pain Anemia - hgb drift to 8.2 H/o breast CA s/p radiation Hyperkalemia - resolved Encephalopathy - remains lethargic Chronic obstructive pulmonary disease, unknown FEV1 History of Present Illness History of Present Illness Ms Dyson is a 75yo female w/ PMHx rheumatoid arthritis, depression, hypertension, breast cancer and prior colectomy who was admitted for a large ventral hernia repair which she underwent on February 13. Had done really well after surgery initially she was actually planning to start trialing liquids, but was transferred to ICU for concern for sepsis and new onset A. fib with RVR requiring a Cardizem drip, cardiology, Infectious Disease and pulmonary were consulted. Patient started on broad-spectrum antibiotics. Pulmonary following. 02/16: ICU today. Her condition has significantly improved since last night. She is awake alert and oriented able to answer questions says pain is under control. Blood pressure holding steady. Remains on Cardizem drip. Continue antibiotics today. Requesting to drink if she can, will defer this decision to surgery. 02/17: She is complaining about some shortness of breath but is feeling comfortable. We will try 1 dose of Lasix today based upon chest x-ray. 02/18: Evaluated at bedside. Patient resting in bed. Appears to be in normal sinus rhythm. No major clinical changes otherwise. 02/19: Evaluated at bedside. Patient resting in bed pursed lip breathing D/W XAVIER/ COMMUNITY EDUCATOR, ABG pending d/w in room k 5.8 on tpn pharmacy to adjust k in tpn 02/20: Evaluated at bedside. D/W XAVIER/ COMMUNITY EDUCATOR, ABG pending d/w in room k 5.8 on tpn pharmacy to adjust k in tpn Transferred from ICU overnight. Still very confused. Family says she said hello. Moving all 4 extremities. Afebrile. NA 156. WBC 19.2, Hb 8.1. D/w family bedside. Vitals/I&O Vitals/I&O: Vital Signs Date Time Temp Pulse Resp B/P (MAP) Pulse Ox O2 Delivery O2 Flow Rate FiO2 02/21/21 08:11 97 Nasal Cannula 3.0 02/21/21 08:03 136 210/79 02/21/21 03:08 98.6 20 98.6 I & O 02/20/21 02/20/21 02/21/21 15:00 23:00 07:00 Output Total 250 ml 2000 ml 625 ml Balance -250 ml -2000 ml -625 ml Physical Exam Physical Exam: GENERAL: Sleepy, briefly arouses, answers only a few questions HEENT: Normocephalic, atraumatic. Anicteric. Dry mouth NECK: Supple. No JVD. LUNGS: Rales present + for wheezing HEART: Irregularly irregular no murmurs appreciated ABDOMEN: Obese ,mildly distended, binder in place, not taken down, intact dry Hypoactive bowel sounds [address] EXTREMITIES mild edema present, no cyanosis MUSCULOSKELETAL: No joint swelling. No decrease in range of motion. CENTRAL NERVOUS SYSTEM: Sleepy, arousable does not answer any questions PSYCHIATRIC: Cooperative, sleepy PICC line clean General: Cooperative, Other (confusion, sedation ) Heart: Regular rate Lungs: Wheezing Abdomen: Soft, Other (incision intact, drains serosang) Extremities: No edema, Normal pulses Skin: No significant lesion Labs Labs: Laboratory Tests Test 02/20/21 12:37 02/20/21 18:04 02/21/21 00:19 02/21/21 04:20 Glucose (Fingerstick) 239 mg/dL (70-99) 241 mg/dL (70-99) 185 mg/dL (70-99) White Blood Count 19.2 x10^3/uL (4.0-11.0) Red Blood Count 2.85 x10^6/uL (3.50-5.40) Hemoglobin 8.1 g/dL (12.0-15.5) Hematocrit 25.7 % (36.0-47.0) Mean Corpuscular Volume 90 fL (79-100) Mean Corpuscular Hemoglobin 28 pg (25-35) Mean Corpuscular Hemoglobin Concent 32 g/dL (31-37) Red Cell Distribution Width 16.1 % (11.5-14.5) Platelet Count 278 x10^3/uL (140-400) Neutrophils (%) (Auto) 90 % (31-73) Lymphocytes (%) (Auto) 3 % (24-48) Monocytes (%) (Auto) 6 % (0-9) Eosinophils (%) (Auto) 0 % (0-3) Basophils (%) (Auto) 0 % (0-3) Neutrophils # (Auto) 17.3 x10^3/uL (1.8-7.7) Lymphocytes # (Auto) 0.6 x10^3/uL (1.0-4.8) Monocytes # (Auto) 1.2 x10^3/uL (0.0-1.1) Eosinophils # (Auto) 0.0 x10^3/uL (0.0-0.7) Basophils # (Auto) 0.1 x10^3/uL (0.0-0.2) Sodium Level 156 mmol/L (136-145) Potassium Level 3.6 mmol/L (3.5-5.1) Chloride Level 120 mmol/L (98-107) Carbon Dioxide Level 28 mmol/L (21-32) Anion Gap 8 (6-14) Blood Urea Nitrogen 56 mg/dL (7-20) Creatinine 0.9 mg/dL (0.6-1.0) Estimated GFR (Cockcroft-Gault) 60.7 Glucose Level 268 mg/dL (70-99) Calcium Level 6.8 mg/dL (8.5-10.1) Phosphorus Level 2.9 mg/dL (2.6-4.7) Magnesium Level 2.8 mg/dL (1.8-2.4) Test 02/21/21 06:22 Glucose (Fingerstick) 200 mg/dL (70-99) Comment Review of Relevant I have reviewed the following items keely (where applicable) has been applied. Medications: Current Medications Medications (Trade) Dose Ordered Sig/Isael Route PRN Reason Start Time Stop Time Status Last Admin Dose Admin Methylprednisolone Sodium Succinate (SOLU-Medrol 40MG VIAL) 60 mg Q8HRS IV 02/20/21 14:00 02/21/21 08:01 Insulin Glargine (Lantus Syringe) 8 unit QHS SQ 02/20/21 21:00 02/20/21 22:59 Sodium Phosphate 40 mmol/ Multivitamins 10 ml/Zinc/Copper/ Manganese/ Selenium 1 ml/ Total Parenteral Nutrition/Amino Acids/Dextrose/ Fat Emulsion Intravenous 1,080 ml @ 45 mls/hr TPN CONT IV 02/20/21 22:00 02/21/21 21:59 02/20/21 22:45 Hydralazine HCl (Apresoline Inj) 10 mg 1X ONCE IVP 02/20/21 12:45 02/20/21 12:46 DC 02/20/21 13:06 Nitroglycerin (Nitro-Bid Oint) 1 inch Q6HRS TP 02/20/21 13:00 02/21/21 08:03 Enalaprilat (Vasotec Inj) 1.25 mg 1X ONCE IVP 02/20/21 16:00 02/20/21 16:10 DC 02/20/21 16:47 Fentanyl Citrate (Fentanyl 2ml Vial) 25 mcg PRN Q1HR PRN IVP PAIN 02/20/21 17:00 02/21/21 08:03 Piperacillin Sod/ Tazobactam Sod 3.375 gm/Sodium Chloride 50 ml @ 100 mls/hr Q6HRS IV 02/21/21 09:00 02/21/21 08:55 Justifications for Admission Other Justification BENY HOLMAN MD Feb 21, 2021 10:19
[2021-02-21] MEDS: TPN PER PHARMACY MC PRN (11:25)
--- NOTE | 2021-02-21 11:32 | NUR ---
Pharmacy TPN Dosing Note S: LYNDSEY JOSUE is a 75 year old F Currently receiving Central Continuous TPN started 02/16/21 B:Pertinent PMH: NPO s/p hernia repair Height: 4 feet, 9 inches Weight: 74.2 kg Current diet: clears LABS: Sodium: 156 Potassium: 3.6 Chloride: 120 Calcium: 6.8 Corrected Calcium: 8.40 Magnesium: 2.8 CO2: 28 SCr: 0.9 Glucose: 185-268 Albumin: 2.0 AST: 22 ALT: 26 TPN FORMULA: TPN TYPE: Central Continuous AMINO ACIDS: 60 gm DEXTROSE: 195 gm LIPIDS: 20 gm SODIUM PHOSPHATE: 20 mmol POTASSIUM PHOSPHATE: 20 mmol MULTIPLE VITAMIN: 10 ml TRACE ELEMENTS: 1 ml(s) TPN PLAN: Split phos over sodium and potassium as potassium level is now corrected. Will increase TPN volume a little to help with high sodium. R: Change TPN per plan and ordered formula Will monitor electrolytes, glucose, and tolerance to TPN. Migdalia Fernandes [facility], 02/21/21 [id number]
[2021-02-21] MEDS ORDERED: LABETALOL 20 MG/4 ML DISP.SYRIN. IVP PRN (12:15)
--- NOTE | 2021-02-21 12:25 | PDOC ---
ALVIN ORANTES SNAP ATTACHER 02/21/21 1225: CARDIO Progress Notes Date and Time Date of Service 02/21/2021 Time of Evaluation 1200 Subjective Subjective: No Chest Pain, No shortness of breath Vitals Vitals Vital Signs Date Time Temp Pulse Resp B/P (MAP) Pulse Ox O2 Delivery O2 Flow Rate FiO2 02/21/21 11:29 92 Nasal Cannula 3.0 02/21/21 11:00 97.4 97 20 180/77 (111) 97.4 Weight Weight [ ] Input and Output Intake and Output Intake and Output 02/21/21 07:00 Output Total 2875 ml Balance -2875 ml Output Urine Total 2850 ml Drainage Total 25 ml Laboratory Labs Laboratory Tests Test 02/20/21 12:37 02/20/21 18:04 02/21/21 00:19 02/21/21 04:20 Glucose (Fingerstick) 239 mg/dL (70-99) 241 mg/dL (70-99) 185 mg/dL (70-99) White Blood Count 19.2 x10^3/uL (4.0-11.0) Red Blood Count 2.85 x10^6/uL (3.50-5.40) Hemoglobin 8.1 g/dL (12.0-15.5) Hematocrit 25.7 % (36.0-47.0) Mean Corpuscular Volume 90 fL (79-100) Mean Corpuscular Hemoglobin 28 pg (25-35) Mean Corpuscular Hemoglobin Concent 32 g/dL (31-37) Red Cell Distribution Width 16.1 % (11.5-14.5) Platelet Count 278 x10^3/uL (140-400) Neutrophils (%) (Auto) 90 % (31-73) Lymphocytes (%) (Auto) 3 % (24-48) Monocytes (%) (Auto) 6 % (0-9) Eosinophils (%) (Auto) 0 % (0-3) Basophils (%) (Auto) 0 % (0-3) Neutrophils # (Auto) 17.3 x10^3/uL (1.8-7.7) Lymphocytes # (Auto) 0.6 x10^3/uL (1.0-4.8) Monocytes # (Auto) 1.2 x10^3/uL (0.0-1.1) Eosinophils # (Auto) 0.0 x10^3/uL (0.0-0.7) Basophils # (Auto) 0.1 x10^3/uL (0.0-0.2) Sodium Level 156 mmol/L (136-145) Potassium Level 3.6 mmol/L (3.5-5.1) Chloride Level 120 mmol/L (98-107) Carbon Dioxide Level 28 mmol/L (21-32) Anion Gap 8 (6-14) Blood Urea Nitrogen 56 mg/dL (7-20) Creatinine 0.9 mg/dL (0.6-1.0) Estimated GFR (Cockcroft-Gault) 60.7 Glucose Level 268 mg/dL (70-99) Calcium Level 6.8 mg/dL (8.5-10.1) Phosphorus Level 2.9 mg/dL (2.6-4.7) Magnesium Level 2.8 mg/dL (1.8-2.4) Test 02/21/21 06:22 02/21/21 11:20 Glucose (Fingerstick) 200 mg/dL (70-99) 287 mg/dL (70-99) Physical Exam HEENT: Neck Supple W Full Motion Chest: Symmetric LUNGS: Other (diminished bases) Heart: RRR (SR/ST with PACs), other (Aflutter with RVR) Abdomen: Other (obese; abdominal incision) Extremities: No Edema Neurology: confused, other (drowsy) Assessment Assessment 1. S/p ventricular hernia repair 02/13 2. Post-op AFIB/flutter with RVR; maintaining SR with PACs 3. Acute respiratory failure with AECOPD, CHF 4. Acute diastolic CHF; echo with preserved LV systolic function, compensated 5. Hypertensive urgency; labile likely from nociceptive pain 6. Anemia; hgb drift to 8.1 7. H/o breast CA s/p radiation 8. Hyperkalemia; resolved 9. Encephalopathy: confused, restless at times 10. Hypernatremia: presently on TPN, per PCP Recommendations Presently NPO Continue metoprolol IV.Cardizem drip restarted last night due to tachycardia, will continue for now while NPO and BP labile. Appears to be frequent PACs with sinus tachycardia which could be induced by nociceptive pain. Labetolol IV PRN [id number] 5 correlating with a 7.2% risk of stroke per year. On Lovenox for DVT prophylaxis presently. Will hold off on increasing to treatment dosing at this time given downward trend in hgb. Hydralazine PRN for BP control.transdermal NTG Hold off lasix with Na [id number] up. Transfuse as warranted Continue post-op management per surgical team Analgesia per PCP Justicifation of Admission Dx: Justifications for Admission: Justification of Admission Dx: Yes ALICE LOVE MD 02/21/212055: CARDIO Progress Notes Assessment Assessment Patient seen and examined. Agree with ROLL WINDER's assessment and plan. Postoperative atrial fibrillation/flutter, presently maintaining sinus rhythm. Continue metoprolol. Acute on chronic diastolic heart failure better compensated after diuresis. Continue postop care per general surgery team. ALVIN ORANTES APRN Feb 21, 2021 12:25 ALICE LOVE MD Feb 21, 2021 20:56
[2021-02-21] MEDS: IV DEXTROSE 5% 1,000 ML IV SCH (13:42)
[2021-02-21] MEDS ORDERED: hydrALAZINE 20 MG/ML VIAL. IVP ONE (14:15)
--- NOTE | 2021-02-21 14:35 | PDOC ---
DATE OF SERVICE DATE: 02/21/21 TIME: 14:33 SUBJECTIVE ROS Patient awake but not answering questions No SOB , daughter at bedside OBJECTIVE Vital Signs Vital Signs Date Time Temp Pulse Resp B/P (MAP) Pulse Ox O2 Delivery O2 Flow Rate FiO2 02/21/21 13:54 86 179/84 02/21/21 11:29 92 Nasal Cannula 3.0 02/21/21 11:00 97.4 20 97.4 I & 0 Intake and Output 02/21/21 07:00 Output Total 2875 ml Balance -2875 ml Output Urine Total 2850 ml Drainage Total 25 ml PHYSICAL EXAM Physical Exam GENERALNAD HEENT: Normocephalic, atraumatic. Anicteric. OM moist NECK: Supple. LUNGS: Decreased at bases, Non labored ABD Soft, drains serosang, dressing to incision EXT Mild LE edema , swelling + hands HEART: S1S2 NEURO : grossly nonfocal. Generalized weakness Barraza in place , No CVA or SP tenderness DIAGNOSIS/ASSESSMENT Assessment & Plan HyperKalemia - Resolved K ,Monitor MARILEE at presentation- Cr 1.3 resolved .BUN in 60's stable, likely sec to steroids UOP improved Hyper Natremia- Worse, 2/2 Overdiuresis , Unable to take PO , Recommned Hypotonic IVF, will need to control BS with Insulin per primary . Hols TPN Discussed with nursing Hematuria - UA with RBC's , Barraza sample, No e/o UTI Anemia- decreasing Hgb, defer to primary Acute hypoxemic respiratory failure, multifactorial- Abnormal x-ray A. fib with rapid ventricular response Status post large ventral hernia repair on 02/13. Hypertension BP high COMMENT/RELEVANT DATA Meds Current Medications Medications (Trade) Dose Ordered Sig/Isael Start Time Stop Time Status Last Admin Dose Admin Acetaminophen (Tylenol) 1,000 mg 1X ONCE 02/15/21 20:15 02/15/21 20:16 DC 02/15/21 20:24 1,000 MG Albuterol Sulfate (Ventolin Neb Soln) 2.5 mg PRN Q4HRS PRN 02/18/21 06:45 02/19/21 20:33 2.5 MG Budesonide (Pulmicort) 0.5 mg RTBID 02/18/21 20:00 02/21/21 08:11 0.5 MG Cefazolin Sodium (Ancef) 1 gm 1X PREOP PRN 02/13/21 10:00 02/13/21 15:08 DC Cefazolin Sodium/ Dextrose 0 ml @ As Directed STK-MED ONCE 02/13/21 09:45 02/13/21 09:45 DC Cefepime HCl (Maxipime) 2 gm Q12HR 02/16/21 12:00 02/20/21 08:33 DC 02/19/21 21:02 2 GM Dexamethasone Sodium Phosphate (Decadron) 4 mg STK-MED ONCE 02/13/21 09:36 02/13/21 09:36 DC Dextrose 1,000 ml @ 75 mls/hr [id number] 02/21/21 12:45 02/21/21 13:42 75 MLS/HR Dextrose (Dextrose 50%-Water Syringe) 12.5 gm PRN Q15MIN PRN 02/18/21 12:00 Digoxin (Lanoxin) 500 mcg 1X ONCE 02/19/21 14:45 02/19/21 14:46 DC 02/19/21 15:15 500 MCG Diltiazem HCl 125 mg/Sodium Chloride 125 ml @ 5 mls/hr CONT PRN 02/15/21 21:30 02/21/21 01:33 5 MLS/HR Enalaprilat (Vasotec Inj) 1.25 mg 1X ONCE 02/20/21 16:00 02/20/21 16:10 DC 02/20/21 16:47 1.25 MG Enoxaparin Sodium (Lovenox 40mg Syringe) 40 mg Q24H 02/13/21 18:00 02/20/21 16:50 40 MG Epinephrine (S2 Racepinephrine) 0.5 ml 1X ONCE 02/17/21 14:15 02/17/21 14:16 DC 02/17/21 15:29 0.5 ML Famotidine (Pepcid Vial) 20 mg QHS 02/19/21 21:00 02/20/21 22:45 20 MG Fentanyl Citrate (Fentanyl 2ml Vial) 25 mcg PRN Q2HRS PRN 02/21/21 10:15 Furosemide (Lasix) 40 mg DAILY 02/19/21 11:45 02/21/21 12:57 DC 02/21/21 08:37 40 MG Glycopyrrolate (Robinul) 1 mg STK-MED ONCE 02/13/21 16:33 02/13/21 16:33 DC Hydralazine HCl (Apresoline Inj) 10 mg 1X ONCE 02/21/21 14:15 02/21/21 14:16 Hydromorphone HCl (Dilaudid) 0.2 mg PRN Q4HRS PRN 02/20/21 08:30 02/20/21 09:05 DC Info (FLU VACCINE SCREEN per RX) 1 each PRN DAILY PRN 02/14/21 23:30 Cancel Info (Tpn Per Pharmacy) 1 each PRN DAILY PRN 02/16/21 14:00 02/21/21 12:43 DC 02/21/21 11:25 1 EACH Insulin Glargine (Lantus Syringe) 8 unit QHS 02/20/21 21:00 02/20/21 22:59 8 UNIT Insulin Human Lispro (HumaLOG) 0-7 UNITS Q6HRS 02/18/21 12:00 02/21/21 13:59 3 UNITS Ipratropium Concord (Atrovent) 0.5 mg RTQID 02/16/21 08:00 02/21/21 11:28 0.5 MG Ketorolac Tromethamine (Toradol 15mg Vial) 15 mg 1X ONCE 02/14/21 09:15 02/14/21 09:19 DC 02/14/21 09:33 15 MG Labetalol HCl (Normodyne Iv Push) 20 mg PRN Q2HR PRN 02/21/21 12:15 Lidocaine HCl (Lidocaine Pf 2% Vial) 5 ml STK-MED ONCE 02/13/21 09:36 02/13/21 09:36 DC Linezolid/Dextrose 300 ml @ 300 mls/hr Q12HR 02/16/21 12:00 02/19/21 10:34 DC 02/19/21 09:22 300 MLS/HR Lorazepam (Ativan Inj) 1 mg PRN Q4HRS PRN 02/17/21 11:15 02/18/21 14:43 DC 02/18/21 14:31 1 MG Methylprednisolone Sodium Succinate (SOLU-Medrol 40MG VIAL) 60 mg Q8HRS 02/20/21 14:00 02/21/21 08:01 60 MG Methylprednisolone Sodium Succinate (SOLU-Medrol 125MG VIAL) 125 mg 1X ONCE 02/18/21 07:00 02/18/21 07:01 DC 02/18/21 08:07 125 MG Metoprolol Tartrate (Lopressor Vial) 5 mg Q6HRS 02/19/21 18:00 02/21/21 13:38 5 MG Metronidazole 100 ml @ 100 mls/hr Q12HR 02/15/21 22:00 02/19/21 10:34 DC 02/19/21 09:21 100 MLS/HR Morphine Sulfate (Morphine Sulfate) 1 mg 1X ONCE 02/17/21 11:15 02/17/21 11:16 DC 02/17/21 11:20 1 MG Naloxone HCl (Narcan) 0.4 mg PRN Q2MIN PRN 02/13/21 17:15 02/19/21 08:26 0.4 MG Neostigmine Concord (Neostigmine Methylsulfate) 5 mg STK-MED ONCE 02/13/21 16:33 02/13/21 16:33 DC Nitroglycerin (Nitro-Bid Oint) 1 inch Q6HRS 02/20/21 13:00 02/21/21 13:54 1 INCH Ondansetron HCl (Zofran) 4 mg PRN Q6HRS PRN 02/13/21 17:15 02/20/21 22:47 4 MG Piperacillin Sod/ Tazobactam Sod 3.375 gm/Sodium Chloride 50 ml @ 100 mls/hr Q6HRS 02/21/21 09:00 02/21/21 13:33 100 MLS/HR Potassium Phosphate 15 mmol/ Sodium Chloride 105 ml @ 52.5 mls/hr 1X ONCE 02/16/21 15:00 02/16/21 16:59 DC 02/16/21 15:43 52.5 MLS/HR Prochlorperazine Edisylate (Compazine) 5 mg PACU PRN PRN 02/13/21 06:00 02/13/21 21:00 DC Propofol (Diprivan) 200 mg STK-MED ONCE 02/13/21 09:36 02/13/21 09:36 DC Ringer's Solution 1,000 ml @ 30 mls/hr Q24H 02/13/21 06:00 02/13/21 18:00 DC Rocuronium Concord (Zemuron) 50 mg STK-MED ONCE 02/13/21 13:53 02/13/21 13:54 DC Sodium Acetate 90 meq/Sodium Phosphate 20 mmol/ Potassium Chloride 30 meq/ Potassium Phosphate 20 mmol/ Multivitamins 10 ml/Zinc/Copper/ Manganese/ Selenium 1 ml/ Total Parenteral Nutrition/Amino Acids/Dextrose/ Fat Emulsion Intravenous 1,080 ml @ 45 mls/hr TPN CONT 02/18/21 22:00 02/19/21 21:59 DC 02/18/21 21:35 45 MLS/HR Sodium Chloride (Normal Saline Flush) 3 ml QSHIFT PRN 02/13/21 17:15 Sodium Chloride 90 meq/Potassium Chloride 50 meq/ Potassium Phosphate 20 mmol/ Magnesium Sulfate 10 meq/Calcium Gluconate 10 meq/ Multivitamins 10 ml/Zinc/Copper/ Manganese/ Selenium 1 ml/ Total Parenteral Nutrition/Amino Acids/Dextrose/ Fat Emulsion Intravenous 1,296 ml @ 54 mls/hr TPN CONT 02/16/21 22:00 02/17/21 21:59 DC 02/16/21 21:24 54 MLS/HR Sodium Chloride 90 meq/Sodium Phosphate 10 mmol/ Potassium Chloride 50 meq/ Potassium Phosphate 20 mmol/ Magnesium Sulfate 5 meq/ Multivitamins 10 ml/Zinc/Copper/ Manganese/ Selenium 1 ml/ Total Parenteral Nutrition/Amino Acids/Dextrose/ Fat Emulsion Intravenous 1,080 ml @ 45 mls/hr TPN CONT 02/17/21 22:00 02/18/21 21:59 DC 02/17/21 21:12 45 MLS/HR Sodium Phosphate 15 mmol/Sodium Chloride 105 ml @ 105 mls/hr 1X ONCE 02/18/21 10:00 02/18/21 10:59 DC 02/18/21 09:20 105 MLS/HR Sodium Phosphate 20 mmol/Potassium Phosphate 20 mmol/ Multivitamins 10 ml/Zinc/Copper/ Manganese/ Selenium 1 ml/ Total Parenteral Nutrition/Amino Acids/Dextrose/ Fat Emulsion Intravenous 1,320 ml @ 55 mls/hr TPN CONT 02/21/21 22:00 02/22/21 21:59 Sodium Phosphate 20 mmol/Sodium Chloride 256.6667 ml @ 64.167 m... 1X ONCE 02/17/21 09:15 02/17/21 13:14 UNV Sodium Phosphate 40 mmol/ Multivitamins 10 ml/Zinc/Copper/ Manganese/ Selenium 1 ml/ Total Parenteral Nutrition/Amino Acids/Dextrose/ Fat Emulsion Intravenous 1,080 ml @ 45 mls/hr TPN CONT 02/20/21 22:00 02/21/21 12:43 DC 02/20/21 22:45 45 MLS/HR Succinylcholine Chloride (Anectine) 200 mg STK-MED ONCE 02/13/21 09:38 02/13/21 09:38 DC Vancomycin HCl (Vanco Per Pharmacy) 1 each PRN DAILY PRN 02/15/21 21:30 02/16/21 11:17 DC 02/16/21 03:40 1 EACH Vancomycin HCl (Vancomycin Trough Level) 1 each 1X ONCE 02/17/21 22:30 02/16/21 11:17 DC Vancomycin HCl 1.75 gm/Sodium Chloride 500 ml @ 250 mls/hr 1X ONCE 02/15/21 22:00 02/15/21 23:59 DC 02/15/21 23:00 250 MLS/HR Vancomycin HCl 1 gm/Sodium Chloride 250 ml @ 250 mls/hr Q24H 02/16/21 23:00 02/16/21 11:16 DC Lab Laboratory Tests Test 02/20/21 18:04 02/21/21 00:19 02/21/21 04:20 02/21/21 06:22 Glucose (Fingerstick) 241 mg/dL (70-99) 185 mg/dL (70-99) 200 mg/dL (70-99) White Blood Count 19.2 x10^3/uL (4.0-11.0) Red Blood Count 2.85 x10^6/uL (3.50-5.40) Hemoglobin 8.1 g/dL (12.0-15.5) Hematocrit 25.7 % (36.0-47.0) Mean Corpuscular Volume 90 fL (79-100) Mean Corpuscular Hemoglobin 28 pg (25-35) Mean Corpuscular Hemoglobin Concent 32 g/dL (31-37) Red Cell Distribution Width 16.1 % (11.5-14.5) Platelet Count 278 x10^3/uL (140-400) Neutrophils (%) (Auto) 90 % (31-73) Lymphocytes (%) (Auto) 3 % (24-48) Monocytes (%) (Auto) 6 % (0-9) Eosinophils (%) (Auto) 0 % (0-3) Basophils (%) (Auto) 0 % (0-3) Neutrophils # (Auto) 17.3 x10^3/uL (1.8-7.7) Lymphocytes # (Auto) 0.6 x10^3/uL (1.0-4.8) Monocytes # (Auto) 1.2 x10^3/uL (0.0-1.1) Eosinophils # (Auto) 0.0 x10^3/uL (0.0-0.7) Basophils # (Auto) 0.1 x10^3/uL (0.0-0.2) Sodium Level 156 mmol/L (136-145) Potassium Level 3.6 mmol/L (3.5-5.1) Chloride Level 120 mmol/L (98-107) Carbon Dioxide Level 28 mmol/L (21-32) Anion Gap 8 (6-14) Blood Urea Nitrogen 56 mg/dL (7-20) Creatinine 0.9 mg/dL (0.6-1.0) Estimated GFR (Cockcroft-Gault) 60.7 Glucose Level 268 mg/dL (70-99) Calcium Level 6.8 mg/dL (8.5-10.1) Phosphorus Level 2.9 mg/dL (2.6-4.7) Magnesium Level 2.8 mg/dL (1.8-2.4) Test 02/21/21 11:20 Glucose (Fingerstick) 287 mg/dL (70-99) Results All relevant outside records, renal labs, imaging studies, telemetry/EKG's were reviewed. Justicifation of Admission Dx: Justifications for Admission: Justification of Admission Dx: Yes ARMINDA LYMAN MD Feb 21, 2021 14:35
--- NOTE | 2021-02-21 14:48 | PDOC ---
SURGICAL PROGRESS NOTE DATE: 02/21/21 TIME: 14:47 Subjective Patient not very communicative. Daughter at bedside states that she appears to be doing better today denies abdominal pain Vital Signs Vital Signs Date Time Temp Pulse Resp B/P (MAP) Pulse Ox O2 Delivery O2 Flow Rate FiO2 02/21/21 14:43 93 183/76 02/21/21 11:29 92 Nasal Cannula 3.0 02/21/21 11:00 97.4 20 97.4 I&O Intake and Output 02/21/21 07:00 Output Total 2875 ml Balance -2875 ml Output Urine Total 2850 ml Drainage Total 25 ml PATIENT HAS A GARCIA: Yes General: Alert, Cooperative, mild distress Abdomen: Normal bowel sounds, Soft, Other (Mild incisional tenderness wounds clean dry and intact MILTON drains intact with serosanguineous output which is decreased) Labs Laboratory Tests Test 02/19/21 18:14 02/20/21 00:25 02/20/21 04:23 02/20/21 06:10 Glucose (Fingerstick) 135 mg/dL (70-99) 234 mg/dL (70-99) O2 Saturation 93 % (92-99) Arterial Blood pH 7.39 (7.35-7.45) Arterial Blood pCO2 at Patient Temp 30 mmHg (35-46) Arterial Blood pO2 at Patient Temp 72 mmHg (65-108) Arterial Blood HCO3 18 mmol/L (21-28) Arterial Blood Base Excess -7 mmol/L (-3-3) FiO2 32 White Blood Count 17.3 x10^3/uL (4.0-11.0) Red Blood Count 2.79 x10^6/uL (3.50-5.40) Hemoglobin 8.2 g/dL (12.0-15.5) Hematocrit 25.4 % (36.0-47.0) Mean Corpuscular Volume 91 fL (79-100) Mean Corpuscular Hemoglobin 29 pg (25-35) Mean Corpuscular Hemoglobin Concent 32 g/dL (31-37) Red Cell Distribution Width 16.6 % (11.5-14.5) Platelet Count 255 x10^3/uL (140-400) Neutrophils (%) (Auto) 90 % (31-73) Lymphocytes (%) (Auto) 2 % (24-48) Monocytes (%) (Auto) 8 % (0-9) Eosinophils (%) (Auto) 0 % (0-3) Basophils (%) (Auto) 0 % (0-3) Neutrophils # (Auto) 15.5 x10^3/uL (1.8-7.7) Lymphocytes # (Auto) 0.3 x10^3/uL (1.0-4.8) Monocytes # (Auto) 1.4 x10^3/uL (0.0-1.1) Eosinophils # (Auto) 0.0 x10^3/uL (0.0-0.7) Basophils # (Auto) 0.0 x10^3/uL (0.0-0.2) Sodium Level 149 mmol/L (136-145) Potassium Level 4.7 mmol/L (3.5-5.1) Chloride Level 116 mmol/L (98-107) Carbon Dioxide Level 23 mmol/L (21-32) Anion Gap 10 (6-14) Blood Urea Nitrogen 61 mg/dL (7-20) Creatinine 1.0 mg/dL (0.6-1.0) Estimated GFR (Cockcroft-Gault) 53.8 BUN/Creatinine Ratio 61 (6-20) Glucose Level 268 mg/dL (70-99) Calcium Level 6.9 mg/dL (8.5-10.1) Phosphorus Level 2.9 mg/dL (2.6-4.7) Magnesium Level 2.7 mg/dL (1.8-2.4) Total Bilirubin 0.6 mg/dL (0.2-1.0) Aspartate Amino Transf (AST/SGOT) 22 U/L (15-37) Alanine Aminotransferase (ALT/SGPT) 26 U/L (14-59) Alkaline Phosphatase 74 U/L (46-116) Total Protein 6.2 g/dL (6.4-8.2) Albumin 2.0 g/dL (3.4-5.0) Albumin/Globulin Ratio 0.5 (1.0-1.7) Test 02/20/21 06:17 02/20/21 12:37 02/20/21 18:04 02/21/21 00:19 Glucose (Fingerstick) 219 mg/dL (70-99) 239 mg/dL (70-99) 241 mg/dL (70-99) 185 mg/dL (70-99) Test 02/21/21 04:20 02/21/21 06:22 02/21/21 11:20 White Blood Count 19.2 x10^3/uL (4.0-11.0) Red Blood Count 2.85 x10^6/uL (3.50-5.40) Hemoglobin 8.1 g/dL (12.0-15.5) Hematocrit 25.7 % (36.0-47.0) Mean Corpuscular Volume 90 fL (79-100) Mean Corpuscular Hemoglobin 28 pg (25-35) Mean Corpuscular Hemoglobin Concent 32 g/dL (31-37) Red Cell Distribution Width 16.1 % (11.5-14.5) Platelet Count 278 x10^3/uL (140-400) Neutrophils (%) (Auto) 90 % (31-73) Lymphocytes (%) (Auto) 3 % (24-48) Monocytes (%) (Auto) 6 % (0-9) Eosinophils (%) (Auto) 0 % (0-3) Basophils (%) (Auto) 0 % (0-3) Neutrophils # (Auto) 17.3 x10^3/uL (1.8-7.7) Lymphocytes # (Auto) 0.6 x10^3/uL (1.0-4.8) Monocytes # (Auto) 1.2 x10^3/uL (0.0-1.1) Eosinophils # (Auto) 0.0 x10^3/uL (0.0-0.7) Basophils # (Auto) 0.1 x10^3/uL (0.0-0.2) Sodium Level 156 mmol/L (136-145) Potassium Level 3.6 mmol/L (3.5-5.1) Chloride Level 120 mmol/L (98-107) Carbon Dioxide Level 28 mmol/L (21-32) Anion Gap 8 (6-14) Blood Urea Nitrogen 56 mg/dL (7-20) Creatinine 0.9 mg/dL (0.6-1.0) Estimated GFR (Cockcroft-Gault) 60.7 Glucose Level 268 mg/dL (70-99) Calcium Level 6.8 mg/dL (8.5-10.1) Phosphorus Level 2.9 mg/dL (2.6-4.7) Magnesium Level 2.8 mg/dL (1.8-2.4) Glucose (Fingerstick) 200 mg/dL (70-99) 287 mg/dL (70-99) Laboratory Tests Test 02/20/21 18:04 02/21/21 00:19 02/21/21 04:20 02/21/21 06:22 Glucose (Fingerstick) 241 mg/dL (70-99) 185 mg/dL (70-99) 200 mg/dL (70-99) White Blood Count 19.2 x10^3/uL (4.0-11.0) Red Blood Count 2.85 x10^6/uL (3.50-5.40) Hemoglobin 8.1 g/dL (12.0-15.5) Hematocrit 25.7 % (36.0-47.0) Mean Corpuscular Volume 90 fL (79-100) Mean Corpuscular Hemoglobin 28 pg (25-35) Mean Corpuscular Hemoglobin Concent 32 g/dL (31-37) Red Cell Distribution Width 16.1 % (11.5-14.5) Platelet Count 278 x10^3/uL (140-400) Neutrophils (%) (Auto) 90 % (31-73) Lymphocytes (%) (Auto) 3 % (24-48) Monocytes (%) (Auto) 6 % (0-9) Eosinophils (%) (Auto) 0 % (0-3) Basophils (%) (Auto) 0 % (0-3) Neutrophils # (Auto) 17.3 x10^3/uL (1.8-7.7) Lymphocytes # (Auto) 0.6 x10^3/uL (1.0-4.8) Monocytes # (Auto) 1.2 x10^3/uL (0.0-1.1) Eosinophils # (Auto) 0.0 x10^3/uL (0.0-0.7) Basophils # (Auto) 0.1 x10^3/uL (0.0-0.2) Sodium Level 156 mmol/L (136-145) Potassium Level 3.6 mmol/L (3.5-5.1) Chloride Level 120 mmol/L (98-107) Carbon Dioxide Level 28 mmol/L (21-32) Anion Gap 8 (6-14) Blood Urea Nitrogen 56 mg/dL (7-20) Creatinine 0.9 mg/dL (0.6-1.0) Estimated GFR (Cockcroft-Gault) 60.7 Glucose Level 268 mg/dL (70-99) Calcium Level 6.8 mg/dL (8.5-10.1) Phosphorus Level 2.9 mg/dL (2.6-4.7) Magnesium Level 2.8 mg/dL (1.8-2.4) Test 02/21/21 11:20 Glucose (Fingerstick) 287 mg/dL (70-99) Assessment/Plan Status post ventral hernia repair awaiting return of bowel function continue supportive care Justicifation of Admission Dx: Justifications for Admission: Justification of Admission Dx: Yes ANIL BEAULIEU MD Feb 21, 2021 14:48
--- NOTE | 2021-02-21 15:38 | NUR ---
SS following up with discharge planning. SS reviewed pt chart and discussed with pt RN. Pt is currently requiring oxygen at three liters nasal canula. Pt has home oxygen. Pt on IV Zosyn, IV Solu-Medrol, and Cardizem drip. NPO on TPN. New PT/OT orders requested. SS will continue to follow for discharge planning.
[2021-02-21] MEDS: ENOXAPARIN 40 MG/0.4 ML SYRINGE. SQ SCH (18:38)
--- NOTE | 2021-02-21 20:14 | NUR ---
Frequent vital signs for today printed & placed in chart.
[2021-02-21] MEDS: FAMOTIDINE 20 MG/2 ML VIAL IVP SCH (21:21)
[2021-02-21] MEDS: INSULIN GLARGINE SYRINGE. SQ SCH (21:24)
[2021-02-21] MEDS ORDERED: AMINO ACID IV SCH (22:00)
[2021-02-21] MEDS ORDERED: TOTAL PARENTERAL NUTRITION IV SCH (22:00)
[2021-02-21] MEDS ORDERED: [UNRECOGNIZED DRUG - OTHER] IV SCH (22:00)
[2021-02-21] MEDS ORDERED: DEXTROSE 70% IV SCH (22:00)
[2021-02-22] VITALS (12 sets, daily range): BP systolic 147–188; BP diastolic 64–84
[2021-02-22] MEDS: IV DEXTROSE 5% 1,000 ML IV SCH ×2 (03:13→18:33)
[2021-02-22] MEDS: PIPERACILLIN/TAZOBACTAM 3.375 GM in IV NORMAL SALINE 50ML 50 ML IV SCH ×4 (06:39→23:26)
[2021-02-22] MEDS: methylPREDNISolone SOD SUCC PF 40 MG/ML VIAL. IV SCH ×3 (06:39→21:15)
[2021-02-22] MEDS: METOPROLOL IV PUSH 5 MG/5 ML VIAL. IVP SCH ×4 (06:40→23:27)
[2021-02-22] MEDS: NITROGLYCERIN OINT 1 GM PACKET. TP SCH ×4 (06:41→23:29)
[2021-02-22] MEDS: INSULIN LISPRO 300 UNITS/3 ML VIAL. SQ SCH ×4 (06:42→23:43)
[2021-02-22 07:16] LABS: GFR 53.8; POTASSIUM 3.5 mmol/L (3.5-5.1)
[2021-02-22] MEDS: IPRATROPIUM BROMIDE 0.5 MG/2.5 ML NEBU. NEB SCH ×4 (07:43→20:47)
[2021-02-22] MEDS: BUDESONIDE 0.5 MG/2 ML NEBU. NEB SCH ×2 (07:43→20:47)
--- NOTE | 2021-02-22 09:22 | PDOC ---
DATE OF SERVICE DATE: 02/22/21 TIME: 09:22 SUBJECTIVE ROS Little more alert than yesterday, at bedside She is asking for water . No SOB Per nursing mildly wheezy last night, D5 W rate decreased OBJECTIVE Vital Signs Vital Signs Date Time Temp Pulse Resp B/P (MAP) Pulse Ox O2 Delivery O2 Flow Rate FiO2 02/22/21 07:46 92 Nasal Cannula 3.0 02/22/21 07:00 97.8 88 24 155/71 (99) 97.8 I & 0 Intake and Output 02/22/21 06:59 Output Total 2845 ml Balance -2845 ml Output Urine Total 2800 ml Drainage Total 45 ml PHYSICAL EXAM Physical Exam GENERALNAD HEENT: Normocephalic, atraumatic. Anicteric. OM dry NECK: Supple. LUNGS: Decreased at bases, Non labored ABD Soft, drains serosang, dressing to incision EXT Mild LE edema , swelling + hands HEART: S1S2 NEURO : grossly nonfocal. Generalized weakness Barraza in place , No CVA or SP tenderness DIAGNOSIS/ASSESSMENT Assessment & Plan HyperKalemia - Resolved K ,Monitor MARILEE at presentation- Cr 1.3 resolved .BUN in 60's stable, likely sec to steroids UOP improved Hyper Natremia- ? 2/2 Overdiuresis , Unable to take PO , continue Hypotonic IVF, with Blood glucose monitoring . TPN held 2/2 HyperNatremia (can restart if Na decreased and increase free water - can be adjusted by pharmacy) Anemia- decreasing Hgb, defer to primary Acute hypoxemic respiratory failure, multifactorial- Abnormal x-ray A. fib with rapid ventricular response Status post large ventral hernia repair on 02/13. awaiting return of bowel function, still NPO . GS following Hypertension BP high COMMENT/RELEVANT DATA Meds Current Medications Medications (Trade) Dose Ordered Sig/Isael Start Time Stop Time Status Last Admin Dose Admin Acetaminophen (Tylenol) 1,000 mg 1X ONCE 02/15/21 20:15 02/15/21 20:16 DC 02/15/21 20:24 1,000 MG Albuterol Sulfate (Ventolin Neb Soln) 2.5 mg PRN Q4HRS PRN 02/18/21 06:45 02/19/21 20:33 2.5 MG Budesonide (Pulmicort) 0.5 mg RTBID 02/18/21 20:00 02/22/21 07:43 0.5 MG Cefazolin Sodium (Ancef) 1 gm 1X PREOP PRN 02/13/21 10:00 02/13/21 15:08 DC Cefazolin Sodium/ Dextrose 0 ml @ As Directed STK-MED ONCE 02/13/21 09:45 02/13/21 09:45 DC Cefepime HCl (Maxipime) 2 gm Q12HR 02/16/21 12:00 02/20/21 08:33 DC 02/19/21 21:02 2 GM Dexamethasone Sodium Phosphate (Decadron) 4 mg STK-MED ONCE 02/13/21 09:36 02/13/21 09:36 DC Dextrose 1,000 ml @ 75 mls/hr [id number] 02/21/21 12:45 02/22/21 03:13 75 MLS/HR Dextrose (Dextrose 50%-Water Syringe) 12.5 gm PRN Q15MIN PRN 02/18/21 12:00 Digoxin (Lanoxin) 500 mcg 1X ONCE 02/19/21 14:45 02/19/21 14:46 DC 02/19/21 15:15 500 MCG Diltiazem HCl 125 mg/Sodium Chloride 125 ml @ 5 mls/hr CONT PRN 02/15/21 21:30 02/22/21 03:13 10 MLS/HR Enalaprilat (Vasotec Inj) 1.25 mg 1X ONCE 02/20/21 16:00 02/20/21 16:10 DC 02/20/21 16:47 1.25 MG Enoxaparin Sodium (Lovenox 40mg Syringe) 40 mg Q24H 02/13/21 18:00 02/21/21 18:38 40 MG Epinephrine (S2 Racepinephrine) 0.5 ml 1X ONCE 02/17/21 14:15 02/17/21 14:16 DC 02/17/21 15:29 0.5 ML Famotidine (Pepcid Vial) 20 mg QHS 02/19/21 21:00 02/21/21 21:21 20 MG Fentanyl Citrate (Fentanyl 2ml Vial) 25 mcg PRN Q2HRS PRN 02/21/21 10:15 Furosemide (Lasix) 40 mg DAILY 02/19/21 11:45 02/21/21 12:57 DC 02/21/21 08:37 40 MG Glycopyrrolate (Robinul) 1 mg STK-MED ONCE 02/13/21 16:33 02/13/21 16:33 DC Hydralazine HCl (Apresoline Inj) 10 mg 1X ONCE 02/21/21 14:15 02/21/21 17:30 DC 02/21/21 14:43 10 MG Hydromorphone HCl (Dilaudid) 0.2 mg PRN Q4HRS PRN 02/20/21 08:30 02/20/21 09:05 DC Info (FLU VACCINE SCREEN per RX) 1 each PRN DAILY PRN 02/14/21 23:30 Cancel Info (Tpn Per Pharmacy) 1 each PRN DAILY PRN 02/16/21 14:00 02/21/21 12:43 DC 02/21/21 11:25 1 EACH Insulin Glargine (Lantus Syringe) 8 unit QHS 02/20/21 21:00 02/21/21 21:24 8 UNIT Insulin Human Lispro (HumaLOG) 0-7 UNITS Q6HRS 02/18/21 12:00 02/22/21 06:42 2 UNITS Ipratropium [place] (Atrovent) 0.5 mg RTQID 02/16/21 08:00 02/22/21 07:43 0.5 MG Ketorolac Tromethamine (Toradol 15mg Vial) 15 mg 1X ONCE 02/14/21 09:15 02/14/21 09:19 DC 02/14/21 09:33 15 MG Labetalol HCl (Normodyne Iv Push) 20 mg PRN Q2HR PRN 02/21/21 12:15 Lidocaine HCl (Lidocaine Pf 2% Vial) 5 ml STK-MED ONCE 02/13/21 09:36 02/13/21 09:36 DC Linezolid/Dextrose 300 ml @ 300 mls/hr Q12HR 02/16/21 12:00 02/19/21 10:34 DC 02/19/21 09:22 300 MLS/HR Lorazepam (Ativan Inj) 1 mg PRN Q4HRS PRN 02/17/21 11:15 02/18/21 14:43 DC 02/18/21 14:31 1 MG Methylprednisolone Sodium Succinate (SOLU-Medrol 40MG VIAL) 60 mg Q8HRS 02/20/21 14:00 02/22/21 06:39 60 MG Methylprednisolone Sodium Succinate (SOLU-Medrol 125MG VIAL) 125 mg 1X ONCE 02/18/21 07:00 02/18/21 07:01 DC 02/18/21 08:07 125 MG Metoprolol Tartrate (Lopressor Vial) 5 mg Q6HRS 02/19/21 18:00 02/22/21 06:40 5 MG Metronidazole 100 ml @ 100 mls/hr Q12HR 02/15/21 22:00 02/19/21 10:34 DC 02/19/21 09:21 100 MLS/HR Morphine Sulfate (Morphine Sulfate) 1 mg 1X ONCE 02/17/21 11:15 02/17/21 11:16 DC 02/17/21 11:20 1 MG Naloxone HCl (Narcan) 0.4 mg PRN Q2MIN PRN 02/13/21 17:15 02/19/21 08:26 0.4 MG Neostigmine [place] (Neostigmine Methylsulfate) 5 mg STK-MED ONCE 02/13/21 16:33 02/13/21 16:33 DC Nitroglycerin (Nitro-Bid Oint) 1 inch Q6HRS 02/20/21 13:00 02/22/21 06:41 1 INCH Ondansetron HCl (Zofran) 4 mg PRN Q6HRS PRN 02/13/21 17:15 02/20/21 22:47 4 MG Piperacillin Sod/ Tazobactam Sod 3.375 gm/Sodium Chloride 50 ml @ 100 mls/hr Q6HRS 02/21/21 09:00 02/22/21 06:39 100 MLS/HR Potassium Phosphate 15 mmol/ Sodium Chloride 105 ml @ 52.5 mls/hr 1X ONCE 02/16/21 15:00 02/16/21 16:59 DC 02/16/21 15:43 52.5 MLS/HR Prochlorperazine Edisylate (Compazine) 5 mg PACU PRN PRN 02/13/21 06:00 02/13/21 21:00 DC Propofol (Diprivan) 200 mg STK-MED ONCE 02/13/21 09:36 02/13/21 09:36 DC Ringer's Solution 1,000 ml @ 30 mls/hr Q24H 02/13/21 06:00 02/13/21 18:00 DC Rocuronium [place] (Zemuron) 50 mg STK-MED ONCE 02/13/21 13:53 02/13/21 13:54 DC Sodium Acetate 90 meq/Sodium Phosphate 20 mmol/ Potassium Chloride 30 meq/ Potassium Phosphate 20 mmol/ Multivitamins 10 ml/Zinc/Copper/ Manganese/ Selenium 1 ml/ Total Parenteral Nutrition/Amino Acids/Dextrose/ Fat Emulsion Intravenous 1,080 ml @ 45 mls/hr TPN CONT 02/18/21 22:00 02/19/21 21:59 DC 02/18/21 21:35 45 MLS/HR Sodium Chloride (Normal Saline Flush) 3 ml QSHIFT PRN 02/13/21 17:15 Sodium Chloride 90 meq/Potassium Chloride 50 meq/ Potassium Phosphate 20 mmol/ Magnesium Sulfate 10 meq/Calcium Gluconate 10 meq/ Multivitamins 10 ml/Zinc/Copper/ Manganese/ Selenium 1 ml/ Total Parenteral Nutrition/Amino Acids/Dextrose/ Fat Emulsion Intravenous 1,296 ml @ 54 mls/hr TPN CONT 02/16/21 22:00 02/17/21 21:59 DC 02/16/21 21:24 54 MLS/HR Sodium Chloride 90 meq/Sodium Phosphate 10 mmol/ Potassium Chloride 50 meq/ Potassium Phosphate 20 mmol/ Magnesium Sulfate 5 meq/ Multivitamins 10 ml/Zinc/Copper/ Manganese/ Selenium 1 ml/ Total Parenteral Nutrition/Amino Acids/Dextrose/ Fat Emulsion Intravenous 1,080 ml @ 45 mls/hr TPN CONT 02/17/21 22:00 02/18/21 21:59 DC 02/17/21 21:12 45 MLS/HR Sodium Phosphate 15 mmol/Sodium Chloride 105 ml @ 105 mls/hr 1X ONCE 02/18/21 10:00 02/18/21 10:59 DC 02/18/21 09:20 105 MLS/HR Sodium Phosphate 20 mmol/Potassium Phosphate 20 mmol/ Multivitamins 10 ml/Zinc/Copper/ Manganese/ Selenium 1 ml/ Total Parenteral Nutrition/Amino Acids/Dextrose/ Fat Emulsion Intravenous 1,320 ml @ 55 mls/hr TPN CONT 02/21/21 22:00 02/22/21 21:59 Sodium Phosphate 20 mmol/Sodium Chloride 256.6667 ml @ 64.167 m... 1X ONCE 02/17/21 09:15 02/17/21 13:14 UNV Sodium Phosphate 40 mmol/ Multivitamins 10 ml/Zinc/Copper/ Manganese/ Selenium 1 ml/ Total Parenteral Nutrition/Amino Acids/Dextrose/ Fat Emulsion Intravenous 1,080 ml @ 45 mls/hr TPN CONT 02/20/21 22:00 02/21/21 12:43 DC 02/20/21 22:45 45 MLS/HR Succinylcholine Chloride (Anectine) 200 mg STK-MED ONCE 02/13/21 09:38 02/13/21 09:38 DC Vancomycin HCl (Vanco Per Pharmacy) 1 each PRN DAILY PRN 02/15/21 21:30 02/16/21 11:17 DC 02/16/21 03:40 1 EACH Vancomycin HCl (Vancomycin Trough Level) 1 each 1X ONCE 02/17/21 22:30 02/16/21 11:17 DC Vancomycin HCl 1.75 gm/Sodium Chloride 500 ml @ 250 mls/hr 1X ONCE 02/15/21 22:00 02/15/21 23:59 DC 02/15/21 23:00 250 MLS/HR Vancomycin HCl 1 gm/Sodium Chloride 250 ml @ 250 mls/hr Q24H 02/16/21 23:00 02/16/21 11:16 DC Lab Laboratory Tests Test 02/21/21 11:20 02/21/21 18:29 02/21/21 21:23 02/21/21 23:53 Glucose (Fingerstick) 287 mg/dL (70-99) 237 mg/dL (70-99) 209 mg/dL (70-99) 227 mg/dL (70-99) Test 02/22/21 06:00 Sodium Level 158 mmol/L (136-145) Potassium Level 3.5 mmol/L (3.5-5.1) Chloride Level 120 mmol/L (98-107) Carbon Dioxide Level 29 mmol/L (21-32) Anion Gap 9 (6-14) Blood Urea Nitrogen 49 mg/dL (7-20) Creatinine 1.0 mg/dL (0.6-1.0) Estimated GFR (Cockcroft-Gault) 53.8 Glucose Level 228 mg/dL (70-99) Glucose (Fingerstick) 207 mg/dL (70-99) Calcium Level 7.0 mg/dL (8.5-10.1) Results All relevant outside records, renal labs, imaging studies, telemetry/EKG's were reviewed. Justicifation of Admission Dx: Justifications for Admission: Justification of Admission Dx: Yes ARMINDA LYMAN MD Feb 22, 2021 09:22
--- NOTE | 2021-02-22 11:13 | PDOC ---
ALVIN ORANTES OR RN 02/22/21 1113: CARDIO Progress Notes Date and Time Date of Service 02/22/2021 Time of Evaluation 1100 Subjective Subjective: No Chest Pain, No shortness of breath Vitals Vitals Vital Signs Date Time Temp Pulse Resp B/P (MAP) Pulse Ox O2 Delivery O2 Flow Rate FiO2 02/22/21 07:46 92 Nasal Cannula 3.0 02/22/21 07:00 97.8 88 24 155/71 (99) 97.8 Weight Weight [ ] Input and Output Intake and Output Intake and Output 02/22/21 07:00 Output Total 2845 ml Balance -2845 ml Output Urine Total 2800 ml Drainage Total 45 ml Laboratory Labs Laboratory Tests Test 02/21/21 11:20 02/21/21 18:29 02/21/21 21:23 02/21/21 23:53 Glucose (Fingerstick) 287 mg/dL (70-99) 237 mg/dL (70-99) 209 mg/dL (70-99) 227 mg/dL (70-99) Test 02/22/21 06:00 Sodium Level 158 mmol/L (136-145) Potassium Level 3.5 mmol/L (3.5-5.1) Chloride Level 120 mmol/L (98-107) Carbon Dioxide Level 29 mmol/L (21-32) Anion Gap 9 (6-14) Blood Urea Nitrogen 49 mg/dL (7-20) Creatinine 1.0 mg/dL (0.6-1.0) Estimated GFR (Cockcroft-Gault) 53.8 Glucose Level 228 mg/dL (70-99) Glucose (Fingerstick) 207 mg/dL (70-99) Calcium Level 7.0 mg/dL (8.5-10.1) Physical Exam HEENT: Neck Supple W Full Motion Chest: Symmetric LUNGS: Other (diminished bases) Heart: RRR (SR with PVCs), other (Aflutter with RVR) Abdomen: Other (obese; abdominal incision) Extremities: No Edema Neurology: alert, follow commands Assessment Assessment 1. S/p ventricular hernia repair 02/13 2. Post-op AFIB/flutter with RVR; maintaining SR with PACs 3. Acute respiratory failure with AECOPD, CHF 4. Acute diastolic CHF; echo with preserved LV systolic function, compensated 5. Hypertensive urgency; labile likely from nociceptive pain 6. Anemia; hgb drift to 8.1 7. H/o breast CA s/p radiation 8. Hyperkalemia; resolved 9. Encephalopathy: better today 10. Hypernatremia: nephrology following 11. PVCs Recommendations Remains NPO. Continue cardizem drip and metoprolol. Add vasotec IV. NTG paste [id number] 5 correlating with a 7.2% risk of stroke per year. On Lovenox for DVT prophylaxis presently. Will hold off on increasing to treatment dosing at this time given downward trend in hgb. Transfuse as warranted Continue post-op management per surgical team Check Mg Justicifation of Admission Dx: Justifications for Admission: Justification of Admission Dx: Yes ALICE LOVE MD 02/23/21 0902: CARDIO Progress Notes Assessment Assessment Patient seen and examined 02/22/2021. Agree with MAGNETIC TESTING TECHNICIAN's assessment and plan. Postoperative atrial fibrillation/flutter, presently maintaining sinus rhythm. Continue metoprolol. Acute on chronic diastolic heart failure better compensated after diuresis. Continue postop care per general surgery team. ALVIN ORANTES APRN Feb 22, 2021 11:13 ALICE LOVE MD Feb 23, 2021 09:02
--- NOTE | 2021-02-22 11:50 | PDOC ---
Infectious Disease Note Subjective: Subjective Patient complains of abdominal pain More alert today Remains afebrile Remains n.p.o. Discussed with RN at bedside Vital Signs: Vital Signs Vital Signs Date Time Temp Pulse Resp B/P (MAP) Pulse Ox O2 Delivery O2 Flow Rate FiO2 02/22/21 11:34 92 Nasal Cannula 3.0 02/22/21 11:07 97.9 96 22 184/76 (112) 97.9 Physical Exam: PHYSICAL EXAM GENERAL: Sleepy but arousable HEENT: Normocephalic, atraumatic. Anicteric. Dry mouth NECK: Supple. No JVD. LUNGS: Rales present + for wheezing HEART: Irregularly irregular no murmurs appreciated ABDOMEN: Obese , distended binder in place, not taken down, intact dry Hypoactive bowel sounds [address] EXTREMITIES mild edema present, no cyanosis MUSCULOSKELETAL: No joint swelling. No decrease in range of motion. CENTRAL NERVOUS SYSTEM: Sleepy, arousable PSYCHIATRIC: Cooperative, sleepy PICC line clean Medications: Inpatient Meds: Medications reviewed. Labs: Lab Laboratory Tests Test 02/21/21 18:29 02/21/21 21:23 02/21/21 23:53 02/22/21 06:00 Glucose (Fingerstick) 237 mg/dL (70-99) 209 mg/dL (70-99) 227 mg/dL (70-99) 207 mg/dL (70-99) Sodium Level 158 mmol/L (136-145) Potassium Level 3.5 mmol/L (3.5-5.1) Chloride Level 120 mmol/L (98-107) Carbon Dioxide Level 29 mmol/L (21-32) Anion Gap 9 (6-14) Blood Urea Nitrogen 49 mg/dL (7-20) Creatinine 1.0 mg/dL (0.6-1.0) Estimated GFR (Cockcroft-Gault) 53.8 Glucose Level 228 mg/dL (70-99) Calcium Level 7.0 mg/dL (8.5-10.1) Magnesium Level 2.8 mg/dL (1.8-2.4) Test 02/22/21 11:35 Glucose (Fingerstick) 269 mg/dL (70-99) Objective: Assessment: Status post large ventral hernia repair on February 12, 2021 Possible ileus Encephalopathy appears metabolic Leukocytosis on steroids Febrile illness resolved Anemia A. fib with RVR CHF Renal insufficiency Rheumatoid arthritis Depression History of breast cancer Hypertension Hyperkalemia Plan: Plan of Care Continue Zosyn encephalopathy appears metabolic Leukocytosis also on steroids General surgery following Continue local wound care/drain management as directed Continue aspiration precautions Maintain aspiration precautions Discussed with at bedside D/W MELINDA WALLACE MD Feb 22, 2021 11:50
[2021-02-22] MEDS: ENALAPRILAT 1.25 MG/ML VIAL. IVP SCH ×3 (12:02→23:28)
--- NOTE | 2021-02-22 12:27 | NUR ---
SS following up with discharge planning. SS reviewed pt chart and discussed with pt RN. Pt is currently requiring oxygen at three liters nasal canula. TPN on hold at this time due to sodium level. Pt on IV Enalaprilat, IV Metoprolol, Cardizem drip, IV Zosyn, and IV Solu-Medrol. PT/OT to evaluate once medically stable to participate. SS discussed with surgery and Dr. Hadley. Possible need for LTACH. SS phoned and faxed referral to [facility], ; fax [phone]. SS will continue to follow for discharge planning.
--- NOTE | 2021-02-22 13:09 | PDOC ---
SURGICAL PROGRESS NOTE DATE: 02/22/21 TIME: 13:06 Subjective asking for some coffee LLQ pain Vital Signs Vital Signs Date Time Temp Pulse Resp B/P (MAP) Pulse Ox O2 Delivery O2 Flow Rate FiO2 02/22/21 12:04 96 02/22/21 11:34 92 Nasal Cannula 3.0 02/22/21 11:07 97.9 22 184/76 (112) 97.9 I&O Intake and Output 02/22/21 07:00 Output Total 2845 ml Balance -2845 ml Output Urine Total 2800 ml Drainage Total 45 ml General: Cooperative, No acute distress Abdomen: Soft, Other (drains in place) Labs Laboratory Tests Test 02/20/21 18:04 02/21/21 00:19 02/21/21 04:20 02/21/21 06:22 Glucose (Fingerstick) 241 mg/dL (70-99) 185 mg/dL (70-99) 200 mg/dL (70-99) White Blood Count 19.2 x10^3/uL (4.0-11.0) Red Blood Count 2.85 x10^6/uL (3.50-5.40) Hemoglobin 8.1 g/dL (12.0-15.5) Hematocrit 25.7 % (36.0-47.0) Mean Corpuscular Volume 90 fL (79-100) Mean Corpuscular Hemoglobin 28 pg (25-35) Mean Corpuscular Hemoglobin Concent 32 g/dL (31-37) Red Cell Distribution Width 16.1 % (11.5-14.5) Platelet Count 278 x10^3/uL (140-400) Neutrophils (%) (Auto) 90 % (31-73) Lymphocytes (%) (Auto) 3 % (24-48) Monocytes (%) (Auto) 6 % (0-9) Eosinophils (%) (Auto) 0 % (0-3) Basophils (%) (Auto) 0 % (0-3) Neutrophils # (Auto) 17.3 x10^3/uL (1.8-7.7) Lymphocytes # (Auto) 0.6 x10^3/uL (1.0-4.8) Monocytes # (Auto) 1.2 x10^3/uL (0.0-1.1) Eosinophils # (Auto) 0.0 x10^3/uL (0.0-0.7) Basophils # (Auto) 0.1 x10^3/uL (0.0-0.2) Sodium Level 156 mmol/L (136-145) Potassium Level 3.6 mmol/L (3.5-5.1) Chloride Level 120 mmol/L (98-107) Carbon Dioxide Level 28 mmol/L (21-32) Anion Gap 8 (6-14) Blood Urea Nitrogen 56 mg/dL (7-20) Creatinine 0.9 mg/dL (0.6-1.0) Estimated GFR (Cockcroft-Gault) 60.7 Glucose Level 268 mg/dL (70-99) Calcium Level 6.8 mg/dL (8.5-10.1) Phosphorus Level 2.9 mg/dL (2.6-4.7) Magnesium Level 2.8 mg/dL (1.8-2.4) Test 02/21/21 11:20 02/21/21 18:29 02/21/21 21:23 02/21/21 23:53 Glucose (Fingerstick) 287 mg/dL (70-99) 237 mg/dL (70-99) 209 mg/dL (70-99) 227 mg/dL (70-99) Test 02/22/21 06:00 02/22/21 11:35 Sodium Level 158 mmol/L (136-145) Potassium Level 3.5 mmol/L (3.5-5.1) Chloride Level 120 mmol/L (98-107) Carbon Dioxide Level 29 mmol/L (21-32) Anion Gap 9 (6-14) Blood Urea Nitrogen 49 mg/dL (7-20) Creatinine 1.0 mg/dL (0.6-1.0) Estimated GFR (Cockcroft-Gault) 53.8 Glucose Level 228 mg/dL (70-99) Glucose (Fingerstick) 207 mg/dL (70-99) 269 mg/dL (70-99) Calcium Level 7.0 mg/dL (8.5-10.1) Magnesium Level 2.8 mg/dL (1.8-2.4) Laboratory Tests Test 02/21/21 18:29 02/21/21 21:23 02/21/21 23:53 02/22/21 06:00 Glucose (Fingerstick) 237 mg/dL (70-99) 209 mg/dL (70-99) 227 mg/dL (70-99) 207 mg/dL (70-99) Sodium Level 158 mmol/L (136-145) Potassium Level 3.5 mmol/L (3.5-5.1) Chloride Level 120 mmol/L (98-107) Carbon Dioxide Level 29 mmol/L (21-32) Anion Gap 9 (6-14) Blood Urea Nitrogen 49 mg/dL (7-20) Creatinine 1.0 mg/dL (0.6-1.0) Estimated GFR (Cockcroft-Gault) 53.8 Glucose Level 228 mg/dL (70-99) Calcium Level 7.0 mg/dL (8.5-10.1) Magnesium Level 2.8 mg/dL (1.8-2.4) Test 02/22/21 11:35 Glucose (Fingerstick) 269 mg/dL (70-99) Assessment/Plan speech eval, more awake today Justicifation of Admission Dx: Justifications for Admission: Justification of Admission Dx: Yes LELA MARIE APRN Feb 22, 2021 13:09
[2021-02-22] MEDS: TPN PER PHARMACY MC PRN ×2 (13:19→15:04)
--- NOTE | 2021-02-22 13:31 | PDOC ---
[facility] PROGRESS NOTE Date of Service DOS: DATE: 02/22/21 TIME: 13:25 Chief Complaint Chief Complaint A/P: Abdominal pain S/p ventricular hernia repair 02/13 Post-op AFIB/flutter with RVR - SR with PACs. on lovenox ppx dosing and IV metoprolol Acute respiratory failure - likely secondary to acute COPD and acute diastolic CHF worsened by Afib as above Acute diastolic CHF - cardiology following, Echo with no reduction in EF Hypertensive urgency - seems to be due to pain Anemia - hgb drift to 8.2 H/o breast CA s/p radiation Hyperkalemia - resolved Encephalopathy - remains lethargic Chronic obstructive pulmonary disease, unknown FEV1 History of Present Illness History of Present Illness Ms Dyson is a 75yo female w/ PMHx rheumatoid arthritis, depression, hypertension, breast cancer and prior colectomy who was admitted for a large ventral hernia repair which she underwent on February 13. Had done really well after surgery initially she was actually planning to start trialing liquids, but was transferred to ICU for concern for sepsis and new onset A. fib with RVR requiring a Cardizem drip, cardiology, Infectious Disease and pulmonary were consulted. Patient started on broad-spectrum antibiotics. Pulmonary following. 02/16: ICU today. Her condition has significantly improved since last night. She is awake alert and oriented able to answer questions says pain is under control. Blood pressure holding steady. Remains on Cardizem drip. Continue antibiotics today. Requesting to drink if she can, will defer this decision to surgery. 02/17: She is complaining about some shortness of breath but is feeling comfortable. We will try 1 dose of Lasix today based upon chest x-ray. 02/18: Evaluated at bedside. Patient resting in bed. Appears to be in normal sinus rhythm. No major clinical changes otherwise. 02/19: Evaluated at bedside. Patient resting in bed pursed lip breathing D/W XAVIER/ CARPET INSTALLER, ABG pending d/w in room k 5.8 on tpn pharmacy to adjust k in tpn 02/20: Evaluated at bedside. D/W XAVIER/ CARPET INSTALLER, ABG pending d/w in room k 5.8 on tpn pharmacy to adjust k in tpn 02/21: Transferred from ICU overnight. Still very confused. Family says she said hello. Moving all 4 extremities. Afebrile. NA 156. WBC 19.2, Hb 8.1. D/w family bedside. NA 158. Afebrile. Asking for coffee. Still requiring 3L NCO2. D/w surgery given her deconditioning and need for IV nutrition she would need likely referral to LTACH. Vitals/I&O Vitals/I&O: Vital Signs Date Time Temp Pulse Resp B/P (MAP) Pulse Ox O2 Delivery O2 Flow Rate FiO2 02/22/21 12:04 96 02/22/21 11:34 92 Nasal Cannula 3.0 02/22/21 11:07 97.9 22 184/76 (112) 97.9 I & O 02/21/21 02/21/21 02/22/21 15:00 23:00 07:00 Output Total 1450 ml 675 ml 720 ml Balance -1450 ml -675 ml -720 ml Physical Exam Physical Exam: GENERAL: Sleepy but arousable HEENT: Normocephalic, atraumatic. Anicteric. Dry mouth NECK: Supple. No JVD. LUNGS: Rales present + for wheezing HEART: Irregularly irregular no murmurs appreciated ABDOMEN: Obese , distended binder in place, not taken down, intact dry Hypoactive bowel sounds [address] EXTREMITIES mild edema present, no cyanosis MUSCULOSKELETAL: No joint swelling. No decrease in range of motion. CENTRAL NERVOUS SYSTEM: Sleepy, arousable PSYCHIATRIC: Cooperative, sleepy PICC line clean General: Cooperative, No acute distress Heart: Regular rate Lungs: Wheezing (Resolved) Abdomen: Soft, Other (drains in place) Extremities: No edema, Normal pulses Skin: No significant lesion Labs Labs: Laboratory Tests Test 02/21/21 18:29 02/21/21 21:23 02/21/21 23:53 02/22/21 06:00 Glucose (Fingerstick) 237 mg/dL (70-99) 209 mg/dL (70-99) 227 mg/dL (70-99) 207 mg/dL (70-99) Sodium Level 158 mmol/L (136-145) Potassium Level 3.5 mmol/L (3.5-5.1) Chloride Level 120 mmol/L (98-107) Carbon Dioxide Level 29 mmol/L (21-32) Anion Gap 9 (6-14) Blood Urea Nitrogen 49 mg/dL (7-20) Creatinine 1.0 mg/dL (0.6-1.0) Estimated GFR (Cockcroft-Gault) 53.8 Glucose Level 228 mg/dL (70-99) Calcium Level 7.0 mg/dL (8.5-10.1) Magnesium Level 2.8 mg/dL (1.8-2.4) Test 02/22/21 11:35 Glucose (Fingerstick) 269 mg/dL (70-99) Comment Review of Relevant I have reviewed the following items keely (where applicable) has been applied. Medications: Current Medications Medications (Trade) Dose Ordered Sig/Isael Route PRN Reason Start Time Stop Time Status Last Admin Dose Admin Hydralazine HCl (Apresoline Inj) 10 mg 1X ONCE IVP 02/21/21 14:15 02/21/21 17:30 DC 02/21/21 14:43 Enalaprilat (Vasotec Inj) 1.25 mg Q6HRS IVP 02/22/21 12:00 02/22/21 12:02 Justifications for Admission Other Justification BENY HOLMAN MD Feb 22, 2021 13:31
--- NOTE | 2021-02-22 15:05 | NUR ---
Pharmacy TPN Dosing Note S: LYNDSEY JOSUE is a 75 year old F Currently receiving Central Continuous TPN started 02/16/21 B:Pertinent PMH: NPO s/p hernia repair Height: 4 feet, 9 inches Weight: 75.2 kg Current diet: clears LABS: Sodium: 158 Potassium: 3.5 Chloride: 120 Calcium: 6.8 Corrected Calcium: 8.40 Magnesium: 2.8 CO2: 29 SCr: 1.0 Glucose: 269 Albumin: 2.0 AST: 22 ALT: 26 TPN FORMULA: TPN TYPE: Central Continuous AMINO ACIDS: 60 gm DEXTROSE: 195 gm LIPIDS: 20 gm SODIUM CHLORIDE: -- mEq SODIUM ACETATE: -- mEq SODIUM PHOSPHATE: -- mmol POTASSIUM CHLORIDE: -- mEq POTASSIUM ACETATE: -- mEq POTASSIUM PHOSPHATE: 30 mmol MAGNESIUM: -- mEq CALCIUM: -- mEq INSULIN: -- units MULTIPLE VITAMIN: 10 ml TRACE ELEMENTS: 1 ml(s) TPN PLAN: REMOVE NAPHOS, INCREASE KPHOS TO 30 MM/BAG. D5W RUNNING AT 75ML/HR. R: INCREASE TPN TO 60 ML/HR Will monitor electrolytes, glucose, and tolerance to TPN. HETAL LOPEZ [facility], 02/22/21 [id number]
[2021-02-22] MEDS: ONDANSETRON PF 4 MG/2 ML VIAL. IVP PRN (15:32)
[2021-02-22] MEDS: ENOXAPARIN 40 MG/0.4 ML SYRINGE. SQ SCH (18:34)
--- NOTE | 2021-02-22 20:01 | NUR ---
Hourly blood pressures in paper chart.
[2021-02-22] MEDS: FAMOTIDINE 20 MG/2 ML VIAL IVP SCH (21:15)
[2021-02-22] MEDS: INSULIN GLARGINE SYRINGE. SQ SCH (21:18)
[2021-02-22] MEDS ORDERED: AMINO ACID IV SCH (22:00)
[2021-02-22] MEDS ORDERED: DEXTROSE IV SCH (22:00)
[2021-02-22] MEDS ORDERED: [UNRECOGNIZED DRUG - OTHER] IV SCH (22:00)
[2021-02-22] MEDS ORDERED: TOTAL PARENTERAL NUTRITION IV SCH (22:00)
[2021-02-23] VITALS (10 sets, daily range): BP systolic 146–168; BP diastolic 63–76
[2021-02-23] MEDS: PIPERACILLIN/TAZOBACTAM 3.375 GM in IV NORMAL SALINE 50ML 50 ML IV SCH ×4 (06:26→23:49)
[2021-02-23] MEDS: METOPROLOL IV PUSH 5 MG/5 ML VIAL. IVP SCH (06:27)
[2021-02-23] MEDS: ENALAPRILAT 1.25 MG/ML VIAL. IVP SCH (06:28)
[2021-02-23] MEDS: NITROGLYCERIN OINT 1 GM PACKET. TP SCH ×4 (06:28→23:49)
[2021-02-23] MEDS: INSULIN LISPRO 300 UNITS/3 ML VIAL. SQ SCH ×4 (06:29→21:52)
[2021-02-23] MEDS: methylPREDNISolone SOD SUCC PF 40 MG/ML VIAL. IV SCH (06:31)
[2021-02-23] MEDS: BUDESONIDE 0.5 MG/2 ML NEBU. NEB SCH ×2 (07:14→17:53)
[2021-02-23] MEDS: IPRATROPIUM BROMIDE 0.5 MG/2.5 ML NEBU. NEB SCH ×4 (07:14→17:53)
--- NOTE | 2021-02-23 07:49 | PDOC ---
Infectious Disease Note Subjective: Subjective Patient patient is thirsty, requesting for water, Denies fever, nausea, vomiting at bedside Vital Signs: Vital Signs Vital Signs Date Time Temp Pulse Resp B/P (MAP) Pulse Ox O2 Delivery O2 Flow Rate FiO2 02/23/21 07:23 94 Nasal Cannula 3.0 02/23/21 06:28 77 154/66 02/23/21 02:55 97.4 18 97.4 Physical Exam: PHYSICAL EXAM GENERAL: Sleepy but arousable HEENT: Normocephalic, atraumatic. Anicteric. Dry mouth NECK: Supple. No JVD. LUNGS: Rales present + for wheezing HEART: Irregularly irregular no murmurs appreciated ABDOMEN: Obese , distended binder in place, not taken down, intact dry Hypoactive bowel sounds [address] EXTREMITIES mild edema present, no cyanosis MUSCULOSKELETAL: No joint swelling. No decrease in range of motion. CENTRAL NERVOUS SYSTEM: Sleepy, arousable PSYCHIATRIC: Cooperative, sleepy PICC line clean Medications: Inpatient Meds: Medications reviewed. Labs: Lab Laboratory Tests Test 02/22/21 11:35 02/22/21 18:18 02/22/21 21:14 02/22/21 23:41 Glucose (Fingerstick) 269 mg/dL (70-99) 256 mg/dL (70-99) 212 mg/dL (70-99) 223 mg/dL (70-99) Test 02/23/21 06:25 Glucose (Fingerstick) 212 mg/dL (70-99) Objective: Assessment: Status post large ventral hernia repair on February 12, 2021 Possible ileus Encephalopathy appears metabolic Leukocytosis on steroids Febrile illness resolved Anemia A. fib with RVR CHF Renal insufficiency Rheumatoid arthritis Depression History of breast cancer Hypertension Hyperkalemia Plan: Plan of Care Continue Zosyn Leukocytosis also on steroids General surgery following Continue local wound care/drain management as directed Continue aspiration precautions Awaiting swallow evaluation Discussed with at bedside MELINDA MONTEMAYOR MD Feb 23, 2021 07:49
[2021-02-23 09:32] LABS: CALCIUM 6.9 mg/dL (8.5-10.1); GFR 53.8
--- NOTE | 2021-02-23 10:19 | PDOC ---
DATE OF SERVICE DATE: 02/23/21 TIME: 10:19 SUBJECTIVE ROS Fully awake Following commands, has been askin for water. Swallow study today GS OK'd Po intake if passes swallow study OBJECTIVE Vital Signs Vital Signs Date Time Temp Pulse Resp B/P (MAP) Pulse Ox O2 Delivery O2 Flow Rate FiO2 02/23/21 07:23 94 Nasal Cannula 3.0 02/23/21 07:00 96.8 66 18 164/70 (101) 96.8 I & 0 Intake and Output 02/23/21 07:00 Intake Total 0 ml Output Total 1695 ml Balance -1695 ml Intake Oral 0 ml Output Urine Total 1650 ml Drainage Total 45 ml PHYSICAL EXAM Physical Exam GENERALNAD HEENT: Normocephalic, atraumatic. Anicteric. OM dry NECK: Supple. LUNGS: Decreased at bases, Non labored ABD Soft, drains serosang, dressing to incision EXT Mild LE edema , swelling + hands HEART: S1S2 NEURO : grossly nonfocal. Generalized weakness Barraza in place , No CVA or SP tenderness DIAGNOSIS/ASSESSMENT Assessment & Plan HyperKalemia - Resolved K ,Monitor MARILEE at presentation- Cr 1.3 resolved .BUN in 60's stable, likely sec to steroids UOP improved Hyper Natremia- worsening, 2/2 Overdiuresis , Unable to take PO . Increase Hypotonic IVF rate , Encourage PO water intake if passes swallow study as approved by GS as well . Blood glucose monitoring and management per primary Anemia- decreasing Hgb, defer to primary Acute hypoxemic respiratory failure, multifactorial- Abnormal x-ray A. fib with rapid ventricular response Status post large ventral hernia repair on 02/13. awaiting return of bowel function, still NPO . GS following Hypertension BP high COMMENT/RELEVANT DATA Meds Current Medications Medications (Trade) Dose Ordered Sig/Isael Start Time Stop Time Status Last Admin Dose Admin Acetaminophen (Tylenol) 1,000 mg 1X ONCE 02/15/21 20:15 02/15/21 20:16 DC 02/15/21 20:24 1,000 MG Albuterol Sulfate (Ventolin Neb Soln) 2.5 mg PRN Q4HRS PRN 02/18/21 06:45 02/19/21 20:33 2.5 MG Budesonide (Pulmicort) 0.5 mg RTBID 02/18/21 20:00 02/23/21 07:14 0.5 MG Cefazolin Sodium (Ancef) 1 gm 1X PREOP PRN 02/13/21 10:00 02/13/21 15:08 DC Cefazolin Sodium/ Dextrose 0 ml @ As Directed STK-MED ONCE 02/13/21 09:45 02/13/21 09:45 DC Cefepime HCl (Maxipime) 2 gm Q12HR 02/16/21 12:00 02/20/21 08:33 DC 02/19/21 21:02 2 GM Dexamethasone Sodium Phosphate (Decadron) 4 mg STK-MED ONCE 02/13/21 09:36 02/13/21 09:36 DC Dextrose 1,000 ml @ 75 mls/hr [id number] 02/21/21 12:45 02/22/21 18:33 75 MLS/HR Dextrose (Dextrose 50%-Water Syringe) 12.5 gm PRN Q15MIN PRN 02/18/21 12:00 Digoxin (Lanoxin) 500 mcg 1X ONCE 02/19/21 14:45 02/19/21 14:46 DC 02/19/21 15:15 500 MCG Diltiazem HCl 125 mg/Sodium Chloride 125 ml @ 5 mls/hr CONT PRN 02/15/21 21:30 02/23/21 01:59 10 MLS/HR Enalaprilat (Vasotec Inj) 1.25 mg Q6HRS 02/22/21 12:00 02/23/21 06:28 1.25 MG Enoxaparin Sodium (Lovenox 40mg Syringe) 40 mg Q24H 02/13/21 18:00 02/22/21 18:34 40 MG Epinephrine (S2 Racepinephrine) 0.5 ml 1X ONCE 02/17/21 14:15 02/17/21 14:16 DC 02/17/21 15:29 0.5 ML Famotidine (Pepcid Vial) 20 mg QHS 02/19/21 21:00 02/22/21 21:15 20 MG Fentanyl Citrate (Fentanyl 2ml Vial) 25 mcg PRN Q2HRS PRN 02/21/21 10:15 Furosemide (Lasix) 40 mg DAILY 02/19/21 11:45 02/21/21 12:57 DC 02/21/21 08:37 40 MG Glycopyrrolate (Robinul) 1 mg STK-MED ONCE 02/13/21 16:33 02/13/21 16:33 DC Hydralazine HCl (Apresoline Inj) 10 mg 1X ONCE 02/21/21 14:15 02/21/21 17:30 DC 02/21/21 14:43 10 MG Hydromorphone HCl (Dilaudid) 0.2 mg PRN Q4HRS PRN 02/20/21 08:30 02/20/21 09:05 DC Info (FLU VACCINE SCREEN per RX) 1 each PRN DAILY PRN 02/14/21 23:30 Cancel Info (Tpn Per Pharmacy) 1 each PRN DAILY PRN 02/22/21 13:30 02/22/21 15:04 1 EACH Insulin Glargine (Lantus Syringe) 8 unit QHS 02/20/21 21:00 02/22/21 21:18 8 UNIT Insulin Human Lispro (HumaLOG) 0-7 UNITS Q6HRS 02/18/21 12:00 02/23/21 06:29 2 UNITS Ipratropium Fay (Atrovent) 0.5 mg RTQID 02/16/21 08:00 02/23/21 07:14 0.5 MG Ketorolac Tromethamine (Toradol 15mg Vial) 15 mg 1X ONCE 02/14/21 09:15 02/14/21 09:19 DC 02/14/21 09:33 15 MG Labetalol HCl (Normodyne Iv Push) 20 mg PRN Q2HR PRN 02/21/21 12:15 Lidocaine HCl (Lidocaine Pf 2% Vial) 5 ml STK-MED ONCE 02/13/21 09:36 02/13/21 09:36 DC Linezolid/Dextrose 300 ml @ 300 mls/hr Q12HR 02/16/21 12:00 02/19/21 10:34 DC 02/19/21 09:22 300 MLS/HR Lorazepam (Ativan Inj) 1 mg PRN Q4HRS PRN 02/17/21 11:15 02/18/21 14:43 DC 02/18/21 14:31 1 MG Methylprednisolone Sodium Succinate (SOLU-Medrol 40MG VIAL) 60 mg Q8HRS 02/20/21 14:00 02/23/21 06:31 60 MG Methylprednisolone Sodium Succinate (SOLU-Medrol 125MG VIAL) 125 mg 1X ONCE 02/18/21 07:00 02/18/21 07:01 DC 02/18/21 08:07 125 MG Metoprolol Tartrate (Lopressor Vial) 5 mg Q6HRS 02/19/21 18:00 02/23/21 06:27 5 MG Metronidazole 100 ml @ 100 mls/hr Q12HR 02/15/21 22:00 02/19/21 10:34 DC 02/19/21 09:21 100 MLS/HR Morphine Sulfate (Morphine Sulfate) 1 mg 1X ONCE 02/17/21 11:15 02/17/21 11:16 DC 02/17/21 11:20 1 MG Naloxone HCl (Narcan) 0.4 mg PRN Q2MIN PRN 02/13/21 17:15 02/19/21 08:26 0.4 MG Neostigmine Fay (Neostigmine Methylsulfate) 5 mg STK-MED ONCE 02/13/21 16:33 02/13/21 16:33 DC Nitroglycerin (Nitro-Bid Oint) 1 inch Q6HRS 02/20/21 13:00 02/23/21 06:28 1 INCH Ondansetron HCl (Zofran) 4 mg PRN Q6HRS PRN 02/13/21 17:15 02/22/21 15:32 4 MG Piperacillin Sod/ Tazobactam Sod 3.375 gm/Sodium Chloride 50 ml @ 100 mls/hr Q6HRS 02/21/21 09:00 02/23/21 06:26 100 MLS/HR Potassium Phosphate 15 mmol/ Sodium Chloride 105 ml @ 52.5 mls/hr 1X ONCE 02/16/21 15:00 02/16/21 16:59 DC 02/16/21 15:43 52.5 MLS/HR Potassium Phosphate 30 mmol/ Multivitamins 10 ml/Zinc/Copper/ Manganese/ Selenium 1 ml/ Total Parenteral Nutrition/Amino Acids/Dextrose/ Fat Emulsion Intravenous 1,440 ml @ 60 mls/hr TPN CONT 02/22/21 22:00 02/23/21 21:59 Prochlorperazine Edisylate (Compazine) 5 mg PACU PRN PRN 02/13/21 06:00 02/13/21 21:00 DC Propofol (Diprivan) 200 mg STK-MED ONCE 02/13/21 09:36 02/13/21 09:36 DC Ringer's Solution 1,000 ml @ 30 mls/hr Q24H 02/13/21 06:00 02/13/21 18:00 DC Rocuronium Fay (Zemuron) 50 mg STK-MED ONCE 02/13/21 13:53 02/13/21 13:54 DC Sodium Acetate 90 meq/Sodium Phosphate 20 mmol/ Potassium Chloride 30 meq/ Potassium Phosphate 20 mmol/ Multivitamins 10 ml/Zinc/Copper/ Manganese/ Selenium 1 ml/ Total Parenteral Nutrition/Amino Acids/Dextrose/ Fat Emulsion Intravenous 1,080 ml @ 45 mls/hr TPN CONT 02/18/21 22:00 02/19/21 21:59 DC 02/18/21 21:35 45 MLS/HR Sodium Chloride (Normal Saline Flush) 3 ml QSHIFT PRN 02/13/21 17:15 Sodium Chloride 90 meq/Potassium Chloride 50 meq/ Potassium Phosphate 20 mmol/ Magnesium Sulfate 10 meq/Calcium Gluconate 10 meq/ Multivitamins 10 ml/Zinc/Copper/ Manganese/ Selenium 1 ml/ Total Parenteral Nutrition/Amino Acids/Dextrose/ Fat Emulsion Intravenous 1,296 ml @ 54 mls/hr TPN CONT 02/16/21 22:00 02/17/21 21:59 DC 02/16/21 21:24 54 MLS/HR Sodium Chloride 90 meq/Sodium Phosphate 10 mmol/ Potassium Chloride 50 meq/ Potassium Phosphate 20 mmol/ Magnesium Sulfate 5 meq/ Multivitamins 10 ml/Zinc/Copper/ Manganese/ Selenium 1 ml/ Total Parenteral Nutrition/Amino Acids/Dextrose/ Fat Emulsion Intravenous 1,080 ml @ 45 mls/hr TPN CONT 02/17/21 22:00 02/18/21 21:59 DC 02/17/21 21:12 45 MLS/HR Sodium Phosphate 15 mmol/Sodium Chloride 105 ml @ 105 mls/hr 1X ONCE 02/18/21 10:00 02/18/21 10:59 DC 02/18/21 09:20 105 MLS/HR Sodium Phosphate 20 mmol/Potassium Phosphate 20 mmol/ Multivitamins 10 ml/Zinc/Copper/ Manganese/ Selenium 1 ml/ Total Parenteral Nutrition/Amino Acids/Dextrose/ Fat Emulsion Intravenous 1,320 ml @ 55 mls/hr TPN CONT 02/21/21 22:00 02/22/21 21:59 DC Sodium Phosphate 20 mmol/Sodium Chloride 256.6667 ml @ 64.167 m... 1X ONCE 02/17/21 09:15 02/17/21 13:14 UNV Sodium Phosphate 40 mmol/ Multivitamins 10 ml/Zinc/Copper/ Manganese/ Selenium 1 ml/ Total Parenteral Nutrition/Amino Acids/Dextrose/ Fat Emulsion Intravenous 1,080 ml @ 45 mls/hr TPN CONT 02/20/21 22:00 02/21/21 12:43 DC 02/20/21 22:45 45 MLS/HR Succinylcholine Chloride (Anectine) 200 mg STK-MED ONCE 02/13/21 09:38 02/13/21 09:38 DC Vancomycin HCl (Vanco Per Pharmacy) 1 each PRN DAILY PRN 02/15/21 21:30 02/16/21 11:17 DC 02/16/21 03:40 1 EACH Vancomycin HCl (Vancomycin Trough Level) 1 each 1X ONCE 02/17/21 22:30 02/16/21 11:17 DC Vancomycin HCl 1.75 gm/Sodium Chloride 500 ml @ 250 mls/hr 1X ONCE 02/15/21 22:00 02/15/21 23:59 DC 02/15/21 23:00 250 MLS/HR Vancomycin HCl 1 gm/Sodium Chloride 250 ml @ 250 mls/hr Q24H 02/16/21 23:00 02/16/21 11:16 DC Lab Laboratory Tests Test 02/22/21 11:35 02/22/21 18:18 02/22/21 21:14 02/22/21 23:41 Glucose (Fingerstick) 269 mg/dL (70-99) 256 mg/dL (70-99) 212 mg/dL (70-99) 223 mg/dL (70-99) Test 02/23/21 06:25 02/23/21 09:00 Glucose (Fingerstick) 212 mg/dL (70-99) Sodium Level 162 mmol/L (136-145) Potassium Level 3.0 mmol/L (3.5-5.1) Chloride Level 123 mmol/L (98-107) Carbon Dioxide Level 29 mmol/L (21-32) Anion Gap 10 (6-14) Blood Urea Nitrogen 42 mg/dL (7-20) Creatinine 1.0 mg/dL (0.6-1.0) Estimated GFR (Cockcroft-Gault) 53.8 Glucose Level 170 mg/dL (70-99) Calcium Level 6.9 mg/dL (8.5-10.1) Thyroid Stimulating Hormone (TSH) 0.616 uIU/mL (0.358-3.74) Results All relevant outside records, renal labs, imaging studies, telemetry/EKG's were reviewed. Justicifation of Admission Dx: Justifications for Admission: Justification of Admission Dx: Yes ARMINDA LYMAN MD Feb 23, 2021 10:19
--- NOTE | 2021-02-23 10:21 | PDOC ---
[facility] PROGRESS NOTE Date of Service DOS: DATE: 02/23/21 TIME: 09:38 Chief Complaint Chief Complaint A/P: Abdominal pain S/p ventricular hernia repair 02/13 Post-op AFIB/flutter with RVR - SR with PACs. on lovenox ppx dosing and IV metoprolol Acute respiratory failure - likely secondary to acute COPD and acute diastolic CHF worsened by Afib as above Acute diastolic CHF - cardiology following, Echo with no reduction in EF Hypertensive urgency - seems to be due to pain Anemia - hgb drift to 8.2 H/o breast CA s/p radiation Hyperkalemia - resolved Encephalopathy - remains lethargic Chronic obstructive pulmonary disease, unknown FEV1 History of Present Illness History of Present Illness Ms Dyson is a 75yo female w/ PMHx rheumatoid arthritis, depression, hypertension, breast cancer and prior colectomy who was admitted for a large ventral hernia repair which she underwent on February 13. Had done really well after surgery initially she was actually planning to start trialing liquids, but was transferred to ICU for concern for sepsis and new onset A. fib with RVR requiring a Cardizem drip, cardiology, Infectious Disease and pulmonary were consulted. Patient started on broad-spectrum antibiotics. Pulmonary following. 02/16: ICU today. Her condition has significantly improved since last night. She is awake alert and oriented able to answer questions says pain is under control. Blood pressure holding steady. Remains on Cardizem drip. Continue antibiotics today. Requesting to drink if she can, will defer this decision to surgery. 02/17: She is complaining about some shortness of breath but is feeling comfortable. We will try 1 dose of Lasix today based upon chest x-ray. 02/18: Evaluated at bedside. Patient resting in bed. Appears to be in normal sinus rhythm. No major clinical changes otherwise. 02/19: Evaluated at bedside. Patient resting in bed pursed lip breathing D/W [facility]/ CAMPUS REP, ABG pending d/w in room k 5.8 on tpn pharmacy to adjust k in tpn 02/20: Evaluated at bedside. D/W [facility]/ CAMPUS REP, ABG pending d/w in room k 5.8 on tpn pharmacy to adjust k in tpn 02/21: Transferred from ICU overnight. Still very confused. Family says she said hello. Moving all 4 extremities. Afebrile. NA 156. WBC 19.2, Hb 8.1. D/w family bedside. 02/22: NA 158. Afebrile. Asking for coffee. Still requiring 3L NCO2. D/w surgery given her deconditioning and need for IV nutrition she would need likely referral to LTACH. NA still 158. Afebrile. More alert. Asking for food. No BM. Very weak, d/w beside to consider LTACH Vitals/I&O Vitals/I&O: Vital Signs Date Time Temp Pulse Resp B/P (MAP) Pulse Ox O2 Delivery O2 Flow Rate FiO2 02/23/21 07:23 94 Nasal Cannula 3.0 02/23/21 07:00 96.8 66 18 164/70 (101) 96.8 I & O 02/22/21 02/22/21 02/23/21 15:00 23:00 07:00 Intake Total 0 ml Output Total 450 ml 635 ml 610 ml Balance -450 ml -635 ml -610 ml Physical Exam Physical Exam: GENERAL: Sleepy but arousable HEENT: Normocephalic, atraumatic. Anicteric. Dry mouth NECK: Supple. No JVD. LUNGS: Rales present + for wheezing HEART: Irregularly irregular no murmurs appreciated ABDOMEN: Obese , distended binder in place, not taken down, intact dry Hypoactive bowel sounds [address] EXTREMITIES mild edema present, no cyanosis MUSCULOSKELETAL: No joint swelling. No decrease in range of motion. CENTRAL NERVOUS SYSTEM: Sleepy, arousable PSYCHIATRIC: Cooperative, sleepy PICC line clean General: Cooperative, No acute distress Heart: Regular rate Lungs: Wheezing (Resolved) Abdomen: Soft, Other (drains in place) Extremities: No edema, Normal pulses Skin: No significant lesion Labs Labs: Laboratory Tests Test 02/22/21 11:35 02/22/21 18:18 02/22/21 21:14 02/22/21 23:41 Glucose (Fingerstick) 269 mg/dL (70-99) 256 mg/dL (70-99) 212 mg/dL (70-99) 223 mg/dL (70-99) Test 02/23/21 06:25 02/23/21 09:00 Glucose (Fingerstick) 212 mg/dL (70-99) Sodium Level 162 mmol/L (136-145) Potassium Level 3.0 mmol/L (3.5-5.1) Chloride Level 123 mmol/L (98-107) Carbon Dioxide Level 29 mmol/L (21-32) Anion Gap 10 (6-14) Blood Urea Nitrogen 42 mg/dL (7-20) Creatinine 1.0 mg/dL (0.6-1.0) Estimated GFR (Cockcroft-Gault) 53.8 Glucose Level 170 mg/dL (70-99) Calcium Level 6.9 mg/dL (8.5-10.1) Comment Review of Relevant I have reviewed the following items keely (where applicable) has been applied. Medications: Current Medications Medications (Trade) Dose Ordered Sig/Isael Route PRN Reason Start Time Stop Time Status Last Admin Dose Admin Enalaprilat (Vasotec Inj) 1.25 mg Q6HRS IVP 02/22/21 12:00 02/23/21 06:28 Info (Tpn Per Pharmacy) 1 each PRN DAILY PRN MC SEE COMMENTS 02/22/21 13:30 02/22/21 15:04 Justifications for Admission Other Justification BENY HOLMAN MD Feb 23, 2021 10:20
--- NOTE | 2021-02-23 10:27 | PDOC ---
ALVIN ORANTES ONLINE EDITOR 02/23/21 1027: CARDIO Progress Notes Date and Time Date of Service 02/23/2021 Time of Evaluation 0930 Subjective Subjective: No Chest Pain, No shortness of breath, No Palpitations Vitals Vitals Vital Signs Date Time Temp Pulse Resp B/P (MAP) Pulse Ox O2 Delivery O2 Flow Rate FiO2 02/23/21 08:00 Nasal Cannula 3.0 02/23/21 07:23 94 02/23/21 07:00 96.8 66 18 164/70 (101) 96.8 Weight Weight [ ] Input and Output Intake and Output Intake and Output 02/23/21 07:00 Intake Total 0 ml Output Total 1695 ml Balance -1695 ml Intake Oral 0 ml Output Urine Total 1650 ml Drainage Total 45 ml Laboratory Labs Laboratory Tests Test 02/22/21 11:35 02/22/21 18:18 02/22/21 21:14 02/22/21 23:41 Glucose (Fingerstick) 269 mg/dL (70-99) 256 mg/dL (70-99) 212 mg/dL (70-99) 223 mg/dL (70-99) Test 02/23/21 06:25 02/23/21 09:00 Glucose (Fingerstick) 212 mg/dL (70-99) Sodium Level 162 mmol/L (136-145) Potassium Level 3.0 mmol/L (3.5-5.1) Chloride Level 123 mmol/L (98-107) Carbon Dioxide Level 29 mmol/L (21-32) Anion Gap 10 (6-14) Blood Urea Nitrogen 42 mg/dL (7-20) Creatinine 1.0 mg/dL (0.6-1.0) Estimated GFR (Cockcroft-Gault) 53.8 Glucose Level 170 mg/dL (70-99) Calcium Level 6.9 mg/dL (8.5-10.1) Thyroid Stimulating Hormone (TSH) 0.616 uIU/mL (0.358-3.74) Physical Exam HEENT: Neck Supple W Full Motion Chest: Symmetric LUNGS: Other (diminished bases) Heart: RRR (SR) Abdomen: Other (obese; abdominal incision; +flatus) Extremities: No Edema Neurology: alert, oriented, follow commands Assessment Assessment 1. S/p ventricular hernia repair 02/13 2. Post-op AFIB/flutter with RVR; maintaining SR with PACs and PVCs 3. Acute respiratory failure with AECOPD, CHF compensated 4. Acute diastolic CHF; echo with preserved LV systolic function, compensated 5. Hypertensive urgency: improving 6. Anemia; hgb drift to 8.1 7. H/o breast CA s/p radiation 8. Hyperkalemia; resolved 9. Encephalopathy: resolved 10. Hypernatremia: nephrology following Recommendations Remains NPO. Continue cardizem drip and metoprolol. Continue vasotec IV. NTG paste. Will switch to PO when allowed [id number] correlating with a 7.2% risk of stroke per year. On Lovenox for DVT prophylaxis presently. Will hold off on increasing to treatment dosing at this time given downward trend in hgb. Transfuse as warranted Continue post-op management per surgical team Increase ambulation, OT/PT Justicifation of Admission Dx: Justifications for Admission: Justification of Admission Dx: Yes ALICE LOVE MD 02/23/21 1538: CARDIO Progress Notes Assessment Assessment Patient seen and examined. Agree with SPEAR FISHER's assessment and plan. Postoperative atrial fibrillation/flutter, presently maintaining sinus rhythm. Continue metoprolol. Acute on chronic diastolic heart failure better compensated after diuresis. Continue postop care per general surgery team. ALVIN ORANTES APRN Feb 23, 2021 10:27 ALICE LOVE MD Feb 23, 2021 15:38
[2021-02-23 10:59] LABS: HEMATOCRIT 24.8 % (36.0-47.0); HEMOGLOBIN 7.8 g/dL (12.0-15.5); RED BLOOD COUNT 2.71 x10^6/uL (3.50-5.40); RED CELL DISTRIBUTION WIDTH 16.9 % (11.5-14.5); WHITE BLOOD COUNT 15.5 x10^3/uL (4.0-11.0)
--- NOTE | 2021-02-23 11:24 | PDOC ---
SURGICAL PROGRESS NOTE DATE: 02/23/21 TIME: 11:23 Subjective very hungry no emesis Vital Signs Vital Signs Date Time Temp Pulse Resp B/P (MAP) Pulse Ox O2 Delivery O2 Flow Rate FiO2 02/23/21 11:00 96.7 72 18 168/71 (103) 99 Nasal Cannula 3.0 96.7 I&O Intake and Output 02/23/21 07:00 Intake Total 0 ml Output Total 1695 ml Balance -1695 ml Intake Oral 0 ml Output Urine Total 1650 ml Drainage Total 45 ml PATIENT HAS A GARCIA: Yes General: Alert, Cooperative Abdomen: Soft, Other (drains in place) Labs Laboratory Tests Test 02/21/21 18:29 02/21/21 21:23 02/21/21 23:53 02/22/21 06:00 Glucose (Fingerstick) 237 mg/dL (70-99) 209 mg/dL (70-99) 227 mg/dL (70-99) 207 mg/dL (70-99) Sodium Level 158 mmol/L (136-145) Potassium Level 3.5 mmol/L (3.5-5.1) Chloride Level 120 mmol/L (98-107) Carbon Dioxide Level 29 mmol/L (21-32) Anion Gap 9 (6-14) Blood Urea Nitrogen 49 mg/dL (7-20) Creatinine 1.0 mg/dL (0.6-1.0) Estimated GFR (Cockcroft-Gault) 53.8 Glucose Level 228 mg/dL (70-99) Calcium Level 7.0 mg/dL (8.5-10.1) Magnesium Level 2.8 mg/dL (1.8-2.4) Test 02/22/21 11:35 02/22/21 18:18 02/22/21 21:14 02/22/21 23:41 Glucose (Fingerstick) 269 mg/dL (70-99) 256 mg/dL (70-99) 212 mg/dL (70-99) 223 mg/dL (70-99) Test 02/23/21 06:25 02/23/21 09:00 Glucose (Fingerstick) 212 mg/dL (70-99) White Blood Count 15.5 x10^3/uL (4.0-11.0) Red Blood Count 2.71 x10^6/uL (3.50-5.40) Hemoglobin 7.8 g/dL (12.0-15.5) Hematocrit 24.8 % (36.0-47.0) Mean Corpuscular Volume 92 fL (79-100) Mean Corpuscular Hemoglobin 29 pg (25-35) Mean Corpuscular Hemoglobin Concent 31 g/dL (31-37) Red Cell Distribution Width 16.9 % (11.5-14.5) Platelet Count 191 x10^3/uL (140-400) Sodium Level 162 mmol/L (136-145) Potassium Level 3.0 mmol/L (3.5-5.1) Chloride Level 123 mmol/L (98-107) Carbon Dioxide Level 29 mmol/L (21-32) Anion Gap 10 (6-14) Blood Urea Nitrogen 42 mg/dL (7-20) Creatinine 1.0 mg/dL (0.6-1.0) Estimated GFR (Cockcroft-Gault) 53.8 Glucose Level 170 mg/dL (70-99) Calcium Level 6.9 mg/dL (8.5-10.1) Thyroid Stimulating Hormone (TSH) 0.616 uIU/mL (0.358-3.74) Laboratory Tests Test 02/22/21 11:35 02/22/21 18:18 02/22/21 21:14 02/22/21 23:41 Glucose (Fingerstick) 269 mg/dL (70-99) 256 mg/dL (70-99) 212 mg/dL (70-99) 223 mg/dL (70-99) Test 02/23/21 06:25 02/23/21 09:00 Glucose (Fingerstick) 212 mg/dL (70-99) White Blood Count 15.5 x10^3/uL (4.0-11.0) Red Blood Count 2.71 x10^6/uL (3.50-5.40) Hemoglobin 7.8 g/dL (12.0-15.5) Hematocrit 24.8 % (36.0-47.0) Mean Corpuscular Volume 92 fL (79-100) Mean Corpuscular Hemoglobin 29 pg (25-35) Mean Corpuscular Hemoglobin Concent 31 g/dL (31-37) Red Cell Distribution Width 16.9 % (11.5-14.5) Platelet Count 191 x10^3/uL (140-400) Sodium Level 162 mmol/L (136-145) Potassium Level 3.0 mmol/L (3.5-5.1) Chloride Level 123 mmol/L (98-107) Carbon Dioxide Level 29 mmol/L (21-32) Anion Gap 10 (6-14) Blood Urea Nitrogen 42 mg/dL (7-20) Creatinine 1.0 mg/dL (0.6-1.0) Estimated GFR (Cockcroft-Gault) 53.8 Glucose Level 170 mg/dL (70-99) Calcium Level 6.9 mg/dL (8.5-10.1) Thyroid Stimulating Hormone (TSH) 0.616 uIU/mL (0.358-3.74) Problem List more alert today swallow eval Justicifation of Admission Dx: Justifications for Admission: Justification of Admission Dx: Yes LELA MARIE APRN Feb 23, 2021 11:24
--- NOTE | 2021-02-23 12:22 | PDOC ---
PULMONARY PROGRESS NOTES DATE: 02/23/21 TIME: 12:16 Subjective Patient is fully awake following commands Vitals Vital Signs Date Time Temp Pulse Resp B/P (MAP) Pulse Ox O2 Delivery O2 Flow Rate FiO2 02/23/21 11:47 94 Nasal Cannula 3.0 02/23/21 11:00 96.7 72 18 168/71 (103) 96.7 Comments ros as mentioned above other sys otherwise neg General: Alert, No acute distress Lungs: Clear Cardiovascular: S1 Abdomen: Soft, Other (Tender in the lower quadrants) Skin: Warm Labs Laboratory Tests Test 02/21/21 18:29 02/21/21 21:23 02/21/21 23:53 02/22/21 06:00 Glucose (Fingerstick) 237 mg/dL (70-99) 209 mg/dL (70-99) 227 mg/dL (70-99) 207 mg/dL (70-99) Sodium Level 158 mmol/L (136-145) Potassium Level 3.5 mmol/L (3.5-5.1) Chloride Level 120 mmol/L (98-107) Carbon Dioxide Level 29 mmol/L (21-32) Anion Gap 9 (6-14) Blood Urea Nitrogen 49 mg/dL (7-20) Creatinine 1.0 mg/dL (0.6-1.0) Estimated GFR (Cockcroft-Gault) 53.8 Glucose Level 228 mg/dL (70-99) Calcium Level 7.0 mg/dL (8.5-10.1) Magnesium Level 2.8 mg/dL (1.8-2.4) Test 02/22/21 11:35 02/22/21 18:18 02/22/21 21:14 02/22/21 23:41 Glucose (Fingerstick) 269 mg/dL (70-99) 256 mg/dL (70-99) 212 mg/dL (70-99) 223 mg/dL (70-99) Test 02/23/21 06:25 02/23/21 09:00 Glucose (Fingerstick) 212 mg/dL (70-99) White Blood Count 15.5 x10^3/uL (4.0-11.0) Red Blood Count 2.71 x10^6/uL (3.50-5.40) Hemoglobin 7.8 g/dL (12.0-15.5) Hematocrit 24.8 % (36.0-47.0) Mean Corpuscular Volume 92 fL (79-100) Mean Corpuscular Hemoglobin 29 pg (25-35) Mean Corpuscular Hemoglobin Concent 31 g/dL (31-37) Red Cell Distribution Width 16.9 % (11.5-14.5) Platelet Count 191 x10^3/uL (140-400) Sodium Level 162 mmol/L (136-145) Potassium Level 3.0 mmol/L (3.5-5.1) Chloride Level 123 mmol/L (98-107) Carbon Dioxide Level 29 mmol/L (21-32) Anion Gap 10 (6-14) Blood Urea Nitrogen 42 mg/dL (7-20) Creatinine 1.0 mg/dL (0.6-1.0) Estimated GFR (Cockcroft-Gault) 53.8 Glucose Level 170 mg/dL (70-99) Calcium Level 6.9 mg/dL (8.5-10.1) Thyroid Stimulating Hormone (TSH) 0.616 uIU/mL (0.358-3.74) Laboratory Tests Test 02/22/21 18:18 02/22/21 21:14 02/22/21 23:41 02/23/21 06:25 Glucose (Fingerstick) 256 mg/dL (70-99) 212 mg/dL (70-99) 223 mg/dL (70-99) 212 mg/dL (70-99) Test 02/23/21 09:00 White Blood Count 15.5 x10^3/uL (4.0-11.0) Red Blood Count 2.71 x10^6/uL (3.50-5.40) Hemoglobin 7.8 g/dL (12.0-15.5) Hematocrit 24.8 % (36.0-47.0) Mean Corpuscular Volume 92 fL (79-100) Mean Corpuscular Hemoglobin 29 pg (25-35) Mean Corpuscular Hemoglobin Concent 31 g/dL (31-37) Red Cell Distribution Width 16.9 % (11.5-14.5) Platelet Count 191 x10^3/uL (140-400) Sodium Level 162 mmol/L (136-145) Potassium Level 3.0 mmol/L (3.5-5.1) Chloride Level 123 mmol/L (98-107) Carbon Dioxide Level 29 mmol/L (21-32) Anion Gap 10 (6-14) Blood Urea Nitrogen 42 mg/dL (7-20) Creatinine 1.0 mg/dL (0.6-1.0) Estimated GFR (Cockcroft-Gault) 53.8 Glucose Level 170 mg/dL (70-99) Calcium Level 6.9 mg/dL (8.5-10.1) Thyroid Stimulating Hormone (TSH) 0.616 uIU/mL (0.358-3.74) Medications Active Scripts Medications Dose Route/Sig Max Daily Dose Days Date Category Vitamin B12 (Cyanocobalamin (Vitamin B-12)) 2,500 Mcg Tablet 500 Mg PO BID 02/15/21 Reported Nexium Capsule (Esomeprazole Magnesium) 40 Mg Capsule.dr Ruiz Cap PO BID 02/15/21 Reported Calcium 600 + Vit D 800 Tab (Calcium Carbonate/Vitamin D3) 1 Each Tablet 1 Tab PO BID 30 02/15/21 Reported Benefiber (Wheat Dextrin) 1 Each Powd.pack 1 Each PO DAILY 02/15/21 Reported Lisinopril 10 Mg Tablet 1 Tab PO DAILY 02/15/21 Reported Leflunomide 10 Mg Tablet 10 Mg PO DAILY 02/15/21 Reported Prednisone 2.5 Mg Tablet 5 Mg PO DAILY 02/15/21 Reported Metoprolol Tartrate 25 Mg Tablet 1 Tab PO DAILY 02/15/21 Reported Hydrocodone-Apap 5-325 (Hydrocodone Bit/Acetaminophen) 1 Tab Tablet 1 Tab PO PRN BID PRN 02/15/21 Reported Gabapentin 100 Mg Capsule 100 Mg PO PRN BID PRN 02/15/21 Reported Folic Acid 0.8 Mg Tablet 3 Mg PO DAILY 02/15/21 Reported Cymbalta (Duloxetine Hcl) 30 Mg Capsule.dr Ruiz Cap PO DAILY 02/15/21 Reported Prolia (Denosumab) 60 Mg/1 Ml Disp.syrin 1 Syr SQ [id number] 1 02/15/21 Reported Celexa (Citalopram Hydrobromide) 10 Mg Tablet 1 Tab PO DAILY 02/15/21 Reported Alprazolam 0.25 Mg Tablet 0.25 Mg PO PRN DAILY PRN 02/15/21 Reported Comments Chest x-ray from 02/19 Interstitial infiltrates in the right upper lung. Impression . IMPRESSION: 1. Acute hypoxemic respiratory failure, multifactorial. 2. Abnormal x-ray, compatible with effusion, possibly congestive heart failure. Possible pneumonia. She does have underlying interstitial lung disease likely related to rheumatoid arthritis. 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 A. fib with rapid ventricular response, controlled 4. Leukocytosis. 5. Fever. resolved 6. Status post large ventral hernia repair on 02/13. 7. Rheumatoid arthritis with previously diagnosed as interstitial lung disease. 8. Hypertension. 9. Breast cancer, status post radiation. 10. Tobacco dependence, in remission. 11. Chronic obstructive pulmonary disease, unknown FEV1 12. Multifactorial encephalopathy/delirium/toxic encephalopathy contributed by Dilaudid., Clinically improving. Plan . Discussed with patient's and RN She is clinically improving. She is off the Dilaudid. She is currently receiving fentanyl . I would reduce the frequency to every 4 hours as needed. repeat cxr Antibiotics per ID off lasix Chest x-ray today taper off steroids quickly Cardiology to address A. fib Nephrology rec for hypernatremia Discussed with at the bedside, MACIEJ YOUNG MD Feb 23, 2021 12:22
[2021-02-23] MEDS: LISINOPRIL 20 MG TABLET PO SCH (13:09)
--- NOTE | 2021-02-23 13:23 | NUR ---
SS following up with discharge planning. SS reviewed pt chart and discussed with pt RN. Pt is from home with spouse and is currently requiring oxygen at three liters nasal canula. ST evaluated. Pt now on PO diet and PO Cardizem. Pt on IV Zosyn and IV Solu-Medrol. PT/OT ordered. SS will continue to follow for discharge planning.
[2021-02-23] MEDS: IV DEXTROSE 5% 1,000 ML IV SCH ×3 (14:00→21:35)
--- NOTE | 2021-02-23 17:30 | RAD ---
XR CHEST 1V History: Pneumonia Comparison: 02/19/2021 Technique: Portable AP radiograph of the chest. Findings: Right PICC courses across the midline, likely in the left subclavian vein. Elevation of the right diaphragm is unchanged. Diffuse bilateral airspace opacities, minimally improv ed on the right and increased on the left. Stable cardiac silhouette with calcified aorta. Left axill chau surgical clips. Multiple gas-filled loops of bowel in the upper abdomen. Osseous structures are u nremarkable. Impression: 1. Right PICC in abnormal position crossing the midline, likely in the region of the left subclavian vein. 2. Evolution of diffuse bilateral airspace opacities, minimally improved on the right and worsened o n the left. PICC line findings discussed with floor nurse Shannon at 02/23/2021 5:28 PM. FOR INTERNAL CODING PURPOSES RESULT CODE: (C) Electronically signed by: Griffin Burgos MD (02/23/2021 5:28 PM) [id number]
[2021-02-23] MEDS: ENOXAPARIN 40 MG/0.4 ML SYRINGE. SQ SCH (18:27)
--- NOTE | 2021-02-23 19:05 | NUR ---
Per day shift report, pt had a chest xray and it was reported that her PICC line was malpositioned. Day shift RN states she reported it to physician and to nursing hydro generation supervisor to have PICC team see the patient. I called nursing hydro generation supervisor and verified that the PICC team had been consulted for the patient. Nursing hydro generation supervisor states PICC team is not available from 7pm to 7am. This RN tried to get IV access x2, and anesthesiology tried three times with no success. Pt is unable to use left arm due to past mastectomy with lymph removal.
[2021-02-23] MEDS: FAMOTIDINE 20 MG/2 ML VIAL IVP SCH (21:00)
[2021-02-23] MEDS: INSULIN GLARGINE SYRINGE. SQ SCH (21:52)
[2021-02-24 03:00] VITALS: BP 166/88
[2021-02-24] MEDS: IV DEXTROSE 5% 1,000 ML IV SCH ×3 (04:15→17:35)
[2021-02-24] MEDS: PIPERACILLIN/TAZOBACTAM 3.375 GM in IV NORMAL SALINE 50ML 50 ML IV SCH (06:00)
[2021-02-24] MEDS: NITROGLYCERIN OINT 1 GM PACKET. TP SCH ×3 (06:29→18:24)
[2021-02-24 07:00] VITALS: BP 165/74
[2021-02-24] MEDS: INSULIN LISPRO 300 UNITS/3 ML VIAL. SQ SCH ×4 (07:30→21:00)
[2021-02-24] MEDS: BUDESONIDE 0.5 MG/2 ML NEBU. NEB SCH ×2 (07:41→18:17)
[2021-02-24] MEDS: IPRATROPIUM BROMIDE 0.5 MG/2.5 ML NEBU. NEB SCH ×4 (07:41→18:17)
--- NOTE | 2021-02-24 08:23 | PDOC ---
[facility] PROGRESS NOTE Date of Service DOS: DATE: 02/24/21 TIME: 08:22 Chief Complaint Chief Complaint A/P: Abdominal pain S/p ventricular hernia repair 02/13 Post-op AFIB/flutter with RVR - SR with PACs. on lovenox ppx dosing and IV metoprolol Acute respiratory failure - likely secondary to acute COPD and acute diastolic CHF worsened by Afib as above Acute diastolic CHF - cardiology following, Echo with no reduction in EF Hypertensive urgency - seems to be due to pain Anemia - hgb drift to 8.2 H/o breast CA s/p radiation Hyperkalemia - resolved Encephalopathy - remains lethargic Chronic obstructive pulmonary disease, unknown FEV1 History of Present Illness History of Present Illness Ms Dyson is a 75yo female w/ PMHx rheumatoid arthritis, depression, hypertension, breast cancer and prior colectomy who was admitted for a large ventral hernia repair which she underwent on February 13. Had done really well after surgery initially she was actually planning to start trialing liquids, but was transferred to ICU for concern for sepsis and new onset A. fib with RVR requiring a Cardizem drip, cardiology, Infectious Disease and pulmonary were consulted. Patient started on broad-spectrum antibiotics. Pulmonary following. 02/16: ICU today. Her condition has significantly improved since last night. She is awake alert and oriented able to answer questions says pain is under control. Blood pressure holding steady. Remains on Cardizem drip. Continue antibiotics today. Requesting to drink if she can, will defer this decision to surgery. 02/17: She is complaining about some shortness of breath but is feeling comfortable. We will try 1 dose of Lasix today based upon chest x-ray. 02/18: Evaluated at bedside. Patient resting in bed. Appears to be in normal sinus rhythm. No major clinical changes otherwise. 02/19: Evaluated at bedside. Patient resting in bed pursed lip breathing D/W XAVIER/ PLUMBING INSPECTOR, ABG pending d/w in room k 5.8 on tpn pharmacy to adjust k in tpn 02/20: Evaluated at bedside. D/W XAVIER/ PLUMBING INSPECTOR, ABG pending d/w in room k 5.8 on tpn pharmacy to adjust k in tpn 02/21: Transferred from ICU overnight. Still very confused. Family says she said hello. Moving all 4 extremities. Afebrile. NA 156. WBC 19.2, Hb 8.1. D/w family bedside. 02/22: NA 158. Afebrile. Asking for coffee. Still requiring 3L NCO2. D/w surgery given her deconditioning and need for IV nutrition she would need likely referral to LTACH. 02/23: NA 162. Afebrile. More alert. Asking for food. No BM. Very weak, d/w beside to consider LTACH. Chest radiograph with PICC crossing midline. Diet advanced Afebrile overnight. Feeling a little worse. She is taking p.o. had some juice had a bowel movement. Chest radiograph revealed PICC has become malpositioned. IV on hold. Labs on hold unable to get peripheral stick. Vitals/I&O Vitals/I&O: Vital Signs Date Time Temp Pulse Resp B/P (MAP) Pulse Ox O2 Delivery O2 Flow Rate FiO2 02/24/21 07:42 92 Nasal Cannula 3.0 02/24/21 06:29 85 166/88 02/24/21 03:00 98.0 18 98.0 I & O 02/23/21 02/23/21 02/24/21 15:00 23:00 07:00 Intake Total 300 ml 300 ml 0 ml Output Total 350 ml 60 ml 675 ml Balance -50 ml 240 ml -675 ml Physical Exam Physical Exam: GENERAL: Sleepy but arousable HEENT: Normocephalic, atraumatic. Anicteric. Dry mouth NECK: Supple. No JVD. LUNGS: Rales present + for wheezing HEART: Irregularly irregular no murmurs appreciated ABDOMEN: Obese , distended binder in place, not taken down, intact dry Hypoactive bowel sounds [address] EXTREMITIES mild edema present, no cyanosis MUSCULOSKELETAL: No joint swelling. No decrease in range of motion. CENTRAL NERVOUS SYSTEM: Sleepy, arousable PSYCHIATRIC: Cooperative, sleepy PICC line clean General: Alert, Cooperative Heart: Regular rate Lungs: Clear Abdomen: Soft, Other (drains in place) Extremities: No edema, Normal pulses Skin: No significant lesion Labs Labs: Laboratory Tests Test 02/23/21 09:00 02/23/21 12:19 02/23/21 16:58 02/23/21 20:38 White Blood Count 15.5 x10^3/uL (4.0-11.0) Red Blood Count 2.71 x10^6/uL (3.50-5.40) Hemoglobin 7.8 g/dL (12.0-15.5) Hematocrit 24.8 % (36.0-47.0) Mean Corpuscular Volume 92 fL (79-100) Mean Corpuscular Hemoglobin 29 pg (25-35) Mean Corpuscular Hemoglobin Concent 31 g/dL (31-37) Red Cell Distribution Width 16.9 % (11.5-14.5) Platelet Count 191 x10^3/uL (140-400) Sodium Level 162 mmol/L (136-145) Potassium Level 3.0 mmol/L (3.5-5.1) Chloride Level 123 mmol/L (98-107) Carbon Dioxide Level 29 mmol/L (21-32) Anion Gap 10 (6-14) Blood Urea Nitrogen 42 mg/dL (7-20) Creatinine 1.0 mg/dL (0.6-1.0) Estimated GFR (Cockcroft-Gault) 53.8 Glucose Level 170 mg/dL (70-99) Calcium Level 6.9 mg/dL (8.5-10.1) Thyroid Stimulating Hormone (TSH) 0.616 uIU/mL (0.358-3.74) Glucose (Fingerstick) 247 mg/dL (70-99) 322 mg/dL (70-99) 248 mg/dL (70-99) Test 02/24/21 08:01 Glucose (Fingerstick) 150 mg/dL (70-99) Comment Review of Relevant I have reviewed the following items keely (where applicable) has been applied. Medications: Current Medications Medications (Trade) Dose Ordered Sig/Isael Route PRN Reason Start Time Stop Time Status Last Admin Dose Admin Diltiazem HCl (Cardizem 24hr Cd) 300 mg DAILY PO 02/23/21 12:30 02/23/21 19:27 DC 02/23/21 13:09 Lisinopril (Prinivil) 20 mg DAILY PO 02/23/21 12:30 02/23/21 13:09 Insulin Human Lispro (HumaLOG) 0-7 UNITS QIDACHS SQ 02/23/21 17:15 02/23/21 21:52 Justifications for Admission Other Justification RIFFEL,CHRISTOPHER S MD Feb 24, 2021 08:23
--- NOTE | 2021-02-24 08:37 | PDOC ---
Infectious Disease Note Subjective: Subjective Patient drinking juice tolerating it well Had a bowel movement with some loose bowel movements Afebrile Vital Signs: Vital Signs Vital Signs Date Time Temp Pulse Resp B/P (MAP) Pulse Ox O2 Delivery O2 Flow Rate FiO2 02/24/21 07:42 92 Nasal Cannula 3.0 02/24/21 06:29 85 166/88 02/24/21 03:00 98.0 18 98.0 Physical Exam: PHYSICAL EXAM GENERAL: Sleepy but arousable HEENT: Normocephalic, atraumatic. Anicteric. Dry mouth NECK: Supple. No JVD. LUNGS: Rales present + for wheezing HEART: Irregularly irregular no murmurs appreciated ABDOMEN: Obese , distended binder in place, not taken down, intact dry Hypoactive bowel sounds [address] EXTREMITIES mild edema present, no cyanosis MUSCULOSKELETAL: No joint swelling. No decrease in range of motion. CENTRAL NERVOUS SYSTEM: Sleepy, arousable PSYCHIATRIC: Cooperative, sleepy PICC line clean Medications: Inpatient Meds: Medications reviewed. Labs: Lab Laboratory Tests Test 02/23/21 09:00 02/23/21 12:19 02/23/21 16:58 02/23/21 20:38 White Blood Count 15.5 x10^3/uL (4.0-11.0) Red Blood Count 2.71 x10^6/uL (3.50-5.40) Hemoglobin 7.8 g/dL (12.0-15.5) Hematocrit 24.8 % (36.0-47.0) Mean Corpuscular Volume 92 fL (79-100) Mean Corpuscular Hemoglobin 29 pg (25-35) Mean Corpuscular Hemoglobin Concent 31 g/dL (31-37) Red Cell Distribution Width 16.9 % (11.5-14.5) Platelet Count 191 x10^3/uL (140-400) Sodium Level 162 mmol/L (136-145) Potassium Level 3.0 mmol/L (3.5-5.1) Chloride Level 123 mmol/L (98-107) Carbon Dioxide Level 29 mmol/L (21-32) Anion Gap 10 (6-14) Blood Urea Nitrogen 42 mg/dL (7-20) Creatinine 1.0 mg/dL (0.6-1.0) Estimated GFR (Cockcroft-Gault) 53.8 Glucose Level 170 mg/dL (70-99) Calcium Level 6.9 mg/dL (8.5-10.1) Thyroid Stimulating Hormone (TSH) 0.616 uIU/mL (0.358-3.74) Glucose (Fingerstick) 247 mg/dL (70-99) 322 mg/dL (70-99) 248 mg/dL (70-99) Test 02/24/21 08:01 Glucose (Fingerstick) 150 mg/dL (70-99) Objective: Assessment: Status post large ventral hernia repair on February 12, 2021 Possible ileus Encephalopathy appears metabolic improved Leukocytosis on steroids Febrile illness resolved Anemia A. fib with RVR CHF Renal insufficiency Rheumatoid arthritis Depression History of breast cancer Hypertension Hyperkalemia Plan: Plan of Care Continue Zosyn on hold due to PICC line not in place per radiology Will give Augmentin in the interim Leukocytosis also on steroids General surgery following Continue local wound care/drain management as directed Continue aspiration precautions Awaiting swallow evaluation Discussed with at bedside MELINDA MONTEMAYOR MD Feb 24, 2021 08:37
[2021-02-24] MEDS ORDERED: methylPREDNISolone SOD SUCC PF 125 MG/2 ML VIAL. IV SCH (09:00)
--- NOTE | 2021-02-24 09:03 | PDOC ---
LELA MARIE [employer]ANDY 02/24/21 0903: SURGICAL PROGRESS NOTE DATE: 02/24/21 TIME: 09:02 Subjective doing ok thickened liquids per speech Vital Signs Vital Signs Date Time Temp Pulse Resp B/P (MAP) Pulse Ox O2 Delivery O2 Flow Rate FiO2 02/24/21 07:42 92 Nasal Cannula 3.0 02/24/21 06:29 85 166/88 02/24/21 03:00 98.0 18 98.0 I&O Intake and Output 02/24/21 07:00 Intake Total 600 ml Output Total 1085 ml Balance -485 ml Intake Oral 600 ml Output Urine Total 985 ml Drainage Total 100 ml PATIENT HAS A GARCIA: Yes General: Cooperative, No acute distress Abdomen: Soft, Other (drains in place) Labs Laboratory Tests Test 02/22/21 11:35 02/22/21 18:18 02/22/21 21:14 02/22/21 23:41 Glucose (Fingerstick) 269 mg/dL (70-99) 256 mg/dL (70-99) 212 mg/dL (70-99) 223 mg/dL (70-99) Test 02/23/21 06:25 02/23/21 09:00 02/23/21 12:19 02/23/21 16:58 Glucose (Fingerstick) 212 mg/dL (70-99) 247 mg/dL (70-99) 322 mg/dL (70-99) White Blood Count 15.5 x10^3/uL (4.0-11.0) Red Blood Count 2.71 x10^6/uL (3.50-5.40) Hemoglobin 7.8 g/dL (12.0-15.5) Hematocrit 24.8 % (36.0-47.0) Mean Corpuscular Volume 92 fL (79-100) Mean Corpuscular Hemoglobin 29 pg (25-35) Mean Corpuscular Hemoglobin Concent 31 g/dL (31-37) Red Cell Distribution Width 16.9 % (11.5-14.5) Platelet Count 191 x10^3/uL (140-400) Sodium Level 162 mmol/L (136-145) Potassium Level 3.0 mmol/L (3.5-5.1) Chloride Level 123 mmol/L (98-107) Carbon Dioxide Level 29 mmol/L (21-32) Anion Gap 10 (6-14) Blood Urea Nitrogen 42 mg/dL (7-20) Creatinine 1.0 mg/dL (0.6-1.0) Estimated GFR (Cockcroft-Gault) 53.8 Glucose Level 170 mg/dL (70-99) Calcium Level 6.9 mg/dL (8.5-10.1) Thyroid Stimulating Hormone (TSH) 0.616 uIU/mL (0.358-3.74) Test 02/23/21 20:38 02/24/21 08:01 Glucose (Fingerstick) 248 mg/dL (70-99) 150 mg/dL (70-99) Laboratory Tests Test 02/23/21 12:19 02/23/21 16:58 02/23/21 20:38 02/24/21 08:01 Glucose (Fingerstick) 247 mg/dL (70-99) 322 mg/dL (70-99) 248 mg/dL (70-99) 150 mg/dL (70-99) Assessment/Plan stable surgically Justicifation of Admission Dx: Justifications for Admission: Justification of Admission Dx: Yes ANIL BEAULIEU MD 02/24/21 1048: SURGICAL PROGRESS NOTE Assessment/Plan Agree with Chris assessment and plan LELA MARIE APRN Feb 24, 2021 09:03 ANIL BEAULIEU MD Feb 24, 2021 10:48
[2021-02-24] MEDS: LISINOPRIL 20 MG TABLET PO SCH (09:15)
--- NOTE | 2021-02-24 10:15 | PDOC ---
PULMONARY PROGRESS NOTES DATE: 02/24/21 TIME: 10:12 Subjective Patient slightly lethargic today. No shortness of breath or cough. Vitals Vital Signs Date Time Temp Pulse Resp B/P (MAP) Pulse Ox O2 Delivery O2 Flow Rate FiO2 02/24/21 09:15 84 165/74 02/24/21 07:42 92 Nasal Cannula 3.0 02/24/21 07:00 97.9 18 97.9 Comments ros as mentioned above other sys otherwise neg General: Alert, No acute distress Lungs: Clear Cardiovascular: S1 Abdomen: Soft, Other (Tender in the lower quadrants) Skin: Warm Labs Laboratory Tests Test 02/22/21 11:35 02/22/21 18:18 02/22/21 21:14 02/22/21 23:41 Glucose (Fingerstick) 269 mg/dL (70-99) 256 mg/dL (70-99) 212 mg/dL (70-99) 223 mg/dL (70-99) Test 02/23/21 06:25 02/23/21 09:00 02/23/21 12:19 02/23/21 16:58 Glucose (Fingerstick) 212 mg/dL (70-99) 247 mg/dL (70-99) 322 mg/dL (70-99) White Blood Count 15.5 x10^3/uL (4.0-11.0) Red Blood Count 2.71 x10^6/uL (3.50-5.40) Hemoglobin 7.8 g/dL (12.0-15.5) Hematocrit 24.8 % (36.0-47.0) Mean Corpuscular Volume 92 fL (79-100) Mean Corpuscular Hemoglobin 29 pg (25-35) Mean Corpuscular Hemoglobin Concent 31 g/dL (31-37) Red Cell Distribution Width 16.9 % (11.5-14.5) Platelet Count 191 x10^3/uL (140-400) Sodium Level 162 mmol/L (136-145) Potassium Level 3.0 mmol/L (3.5-5.1) Chloride Level 123 mmol/L (98-107) Carbon Dioxide Level 29 mmol/L (21-32) Anion Gap 10 (6-14) Blood Urea Nitrogen 42 mg/dL (7-20) Creatinine 1.0 mg/dL (0.6-1.0) Estimated GFR (Cockcroft-Gault) 53.8 Glucose Level 170 mg/dL (70-99) Calcium Level 6.9 mg/dL (8.5-10.1) Thyroid Stimulating Hormone (TSH) 0.616 uIU/mL (0.358-3.74) Test 02/23/21 20:38 02/24/21 08:01 Glucose (Fingerstick) 248 mg/dL (70-99) 150 mg/dL (70-99) Laboratory Tests Test 02/23/21 12:19 02/23/21 16:58 02/23/21 20:38 02/24/21 08:01 Glucose (Fingerstick) 247 mg/dL (70-99) 322 mg/dL (70-99) 248 mg/dL (70-99) 150 mg/dL (70-99) Medications Active Scripts Medications Dose Route/Sig Max Daily Dose Days Date Category Vitamin B12 (Cyanocobalamin (Vitamin B-12)) 2,500 Mcg Tablet 500 Mg PO BID 02/15/21 Reported Nexium Capsule (Esomeprazole Magnesium) 40 Mg Capsule.dr Ruiz Cap PO BID 02/15/21 Reported Calcium 600 + Vit D 800 Tab (Calcium Carbonate/Vitamin D3) 1 Each Tablet 1 Tab PO BID 30 02/15/21 Reported Benefiber (Wheat Dextrin) 1 Each Powd.pack 1 Each PO DAILY 02/15/21 Reported Lisinopril 10 Mg Tablet 1 Tab PO DAILY 02/15/21 Reported Leflunomide 10 Mg Tablet 10 Mg PO DAILY 02/15/21 Reported Prednisone 2.5 Mg Tablet 5 Mg PO DAILY 02/15/21 Reported Metoprolol Tartrate 25 Mg Tablet 1 Tab PO DAILY 02/15/21 Reported Hydrocodone-Apap 5-325 (Hydrocodone Bit/Acetaminophen) 1 Tab Tablet 1 Tab PO PRN BID PRN 02/15/21 Reported Gabapentin 100 Mg Capsule 100 Mg PO PRN BID PRN 02/15/21 Reported Folic Acid 0.8 Mg Tablet 3 Mg PO DAILY 02/15/21 Reported Cymbalta (Duloxetine Hcl) 30 Mg Capsule.dr Ruiz Cap PO DAILY 02/15/21 Reported Prolia (Denosumab) 60 Mg/1 Ml Disp.syrin 1 Syr SQ [id number] 1 02/15/21 Reported Celexa (Citalopram Hydrobromide) 10 Mg Tablet 1 Tab PO DAILY 02/15/21 Reported Alprazolam 0.25 Mg Tablet 0.25 Mg PO PRN DAILY PRN 02/15/21 Reported Comments Chest x-ray from 02/19 Interstitial infiltrates in the right upper lung. Impression . IMPRESSION: 1. Acute hypoxemic respiratory failure, multifactorial. 2. Abnormal x-ray, compatible with effusion, possibly congestive heart failure. Possible pneumonia. She does have underlying interstitial lung disease likely related to rheumatoid arthritis. 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 A. fib with rapid ventricular response, controlled 4. Leukocytosis. 5. Fever. resolved 6. Status post large ventral hernia repair on 02/13. 7. Rheumatoid arthritis with previously diagnosed as interstitial lung disease. 8. Hypertension. 9. Breast cancer, status post radiation. 10. Tobacco dependence, in remission. 11. Chronic obstructive pulmonary disease, unknown FEV1 12. Multifactorial encephalopathy/delirium/toxic encephalopathy, initially contributed by Dilaudid., 13. Hyponatremia, may also be contributing to encephalopathy. Plan . Discussed with patient's and RN Will minimize the narcotics as much as possible. Patient being followed by nephrology regarding hyponatremia. This may be contributing to patient's confusion. repeat cxr reviewed. There is improving right upper lobe interstitial infiltrate. Antibiotics per ID off lasix taper off steroids quickly Cardiology to address A. fib Nephrology rec for hypernatremia Discussed with at the bedside, MACIEJ YOUNG MD Feb 24, 2021 10:15
[2021-02-24 11:00] VITALS: BP 179/74
[2021-02-24 12:21] LABS: CALCIUM 7.1 mg/dL (8.5-10.1); CREATININE 0.8 mg/dL (0.6-1.0); GFR 69.6; POTASSIUM 3.1 mmol/L (3.5-5.1)
[2021-02-24] MEDS: AMOXICILLIN/K CLAV 875/125MG TABLET. PO SCH ×2 (13:07→21:55)
--- NOTE | 2021-02-24 14:24 | PDOC ---
DATE OF SERVICE DATE: 02/24/21 TIME: 14:24 SUBJECTIVE ROS per daughter at bedside pt is not as goos as yesterday as she did not get her prednisone No SOB, No N/V. Resting comfortably in the recliner OBJECTIVE Vital Signs Vital Signs Date Time Temp Pulse Resp B/P (MAP) Pulse Ox O2 Delivery O2 Flow Rate FiO2 02/24/21 13:11 76 159/65 02/24/21 11:52 93 Nasal Cannula 3.0 02/24/21 11:00 96.5 18 96.5 I & 0 Intake and Output 02/24/21 07:00 Intake Total 600 ml Output Total 1085 ml Balance -485 ml Intake Oral 600 ml Output Urine Total 985 ml Drainage Total 100 ml PHYSICAL EXAM Physical Exam GENERALNAD HEENT: Normocephalic, atraumatic. Anicteric. OM dry NECK: Supple. LUNGS: Decreased at bases, Non labored ABD Soft, drains serosang, dressing to incision EXT Mild LE edema , swelling + hands HEART: S1S2 NEURO : grossly nonfocal. Generalized weakness Barraza in place , No CVA or SP tenderness DIAGNOSIS/ASSESSMENT Assessment & Plan HyperKalemia - Resolved K ,Monitor MARILEE at presentation- Cr 1.3 resolved .BUN in 60's stable, likely sec to steroids UOP improved Hyper Natremia- Improving 162->157 suspect 2/2 Overdiuresis , Swallow study done - no liquids . On Hypotonic IVF , not running as doesnt have IV Periph access , Will need IVF , rolanda RN. . Blood glucose monitoring and management per primary Anemia- slow decreasing Hgb, defer to primary Acute hypoxemic respiratory failure, multifactorial- Abnormal x-ray A. fib with rapid ventricular response Status post large ventral hernia repair on 02/13. awaiting return of bowel function, still NPO . GS following Hypertension BP high COMMENT/RELEVANT DATA Meds Current Medications Medications (Trade) Dose Ordered Sig/Isael Start Time Stop Time Status Last Admin Dose Admin Acetaminophen (Tylenol) 1,000 mg 1X ONCE 02/15/21 20:15 02/15/21 20:16 DC 02/15/21 20:24 1,000 MG Albuterol Sulfate (Ventolin Neb Soln) 2.5 mg PRN Q4HRS PRN 02/18/21 06:45 02/19/21 20:33 2.5 MG Amoxicillin/ Clavulanate Potassium (Augmentin 875/ 125mg) 1 tab BID 02/24/21 11:30 02/24/21 13:07 1 TAB Budesonide (Pulmicort) 0.5 mg RTBID 02/18/21 20:00 02/24/21 07:41 0.5 MG Cefazolin Sodium (Ancef) 1 gm 1X PREOP PRN 02/13/21 10:00 02/13/21 15:08 DC Cefazolin Sodium/ Dextrose 0 ml @ As Directed STK-MED ONCE 02/13/21 09:45 02/13/21 09:45 DC Cefepime HCl (Maxipime) 2 gm Q12HR 02/16/21 12:00 02/20/21 08:33 DC 02/19/21 21:02 2 GM Dexamethasone Sodium Phosphate (Decadron) 4 mg STK-MED ONCE 02/13/21 09:36 02/13/21 09:36 DC Dextrose 1,000 ml @ 150 mls/hr Q6H40M 02/21/21 12:45 02/23/21 14:00 150 MLS/HR Dextrose (Dextrose 50%-Water Syringe) 12.5 gm PRN Q15MIN PRN 02/18/21 12:00 Digoxin (Lanoxin) 500 mcg 1X ONCE 02/19/21 14:45 02/19/21 14:46 DC 02/19/21 15:15 500 MCG Diltiazem HCl (Cardizem 24hr Cd) 240 mg DAILY 02/24/21 09:00 02/24/21 09:14 240 MG Diltiazem HCl 125 mg/Sodium Chloride 125 ml @ 5 mls/hr CONT PRN 02/15/21 21:30 02/23/21 12:24 DC 02/23/21 01:59 10 MLS/HR Enalaprilat (Vasotec Inj) 1.25 mg Q6HRS 02/22/21 12:00 02/23/21 12:24 DC 02/23/21 06:28 1.25 MG Enoxaparin Sodium (Lovenox 40mg Syringe) 40 mg Q24H 02/13/21 18:00 02/23/21 18:27 40 MG Epinephrine (S2 Racepinephrine) 0.5 ml 1X ONCE 02/17/21 14:15 02/17/21 14:16 DC 02/17/21 15:29 0.5 ML Famotidine (Pepcid Vial) 20 mg QHS 02/19/21 21:00 02/22/21 21:15 20 MG Fentanyl Citrate (Fentanyl 2ml Vial) 25 mcg PRN Q2HRS PRN 02/21/21 10:15 Furosemide (Lasix) 40 mg DAILY 02/19/21 11:45 02/21/21 12:57 DC 02/21/21 08:37 40 MG Glycopyrrolate (Robinul) 1 mg STK-MED ONCE 02/13/21 16:33 02/13/21 16:33 DC Hydralazine HCl (Apresoline Inj) 10 mg 1X ONCE 02/21/21 14:15 02/21/21 17:30 DC 02/21/21 14:43 10 MG Hydromorphone HCl (Dilaudid) 0.2 mg PRN Q4HRS PRN 02/20/21 08:30 02/20/21 09:05 DC Info (FLU VACCINE SCREEN per RX) 1 each PRN DAILY PRN 02/14/21 23:30 Cancel Info (Tpn Per Pharmacy) 1 each PRN DAILY PRN 02/22/21 13:30 02/23/21 12:26 DC 02/22/21 15:04 1 EACH Insulin Glargine (Lantus Syringe) 8 unit QHS 02/20/21 21:00 02/23/21 21:52 8 UNIT Insulin Human Lispro (HumaLOG) 0-7 UNITS QIDACHS 02/23/21 17:15 02/23/21 21:52 2 UNITS Ipratropium [place] (Atrovent) 0.5 mg RTQID 02/16/21 08:00 02/24/21 11:52 0.5 MG Ketorolac Tromethamine (Toradol 15mg Vial) 15 mg 1X ONCE 02/14/21 09:15 02/14/21 09:19 DC 02/14/21 09:33 15 MG Labetalol HCl (Normodyne Iv Push) 20 mg PRN Q2HR PRN 02/21/21 12:15 Lidocaine HCl (Lidocaine Pf 2% Vial) 5 ml STK-MED ONCE 02/13/21 09:36 02/13/21 09:36 DC Linezolid/Dextrose 300 ml @ 300 mls/hr Q12HR 02/16/21 12:00 02/19/21 10:34 DC 02/19/21 09:22 300 MLS/HR Lisinopril (Prinivil) 20 mg DAILY 02/23/21 12:30 02/24/21 09:15 20 MG Lorazepam (Ativan Inj) 1 mg PRN Q4HRS PRN 02/17/21 11:15 02/18/21 14:43 DC 02/18/21 14:31 1 MG Methylprednisolone Sodium Succinate (SOLU-Medrol 40MG VIAL) 60 mg Q8HRS 02/20/21 14:00 02/23/21 12:23 DC 02/23/21 06:31 60 MG Methylprednisolone Sodium Succinate (SOLU-Medrol 125MG VIAL) 60 mg DAILY 02/24/21 09:00 Metoprolol Tartrate (Lopressor Vial) 5 mg Q6HRS 02/19/21 18:00 02/23/21 13:54 DC 02/23/21 06:27 5 MG Metronidazole 100 ml @ 100 mls/hr Q12HR 02/15/21 22:00 02/19/21 10:34 DC 02/19/21 09:21 100 MLS/HR Morphine Sulfate (Morphine Sulfate) 1 mg 1X ONCE 02/17/21 11:15 02/17/21 11:16 DC 02/17/21 11:20 1 MG Naloxone HCl (Narcan) 0.4 mg PRN Q2MIN PRN 02/13/21 17:15 02/19/21 08:26 0.4 MG Neostigmine [place] (Neostigmine Methylsulfate) 5 mg STK-MED ONCE 02/13/21 16:33 02/13/21 16:33 DC Nitroglycerin (Nitro-Bid Oint) 1 inch Q6HRS 02/20/21 13:00 02/24/21 13:11 1 INCH Ondansetron HCl (Zofran) 4 mg PRN Q6HRS PRN 02/13/21 17:15 02/22/21 15:32 4 MG Piperacillin Sod/ Tazobactam Sod 3.375 gm/Sodium Chloride 50 ml @ 100 mls/hr Q6HRS 02/21/21 09:00 02/24/21 10:07 DC 02/23/21 13:10 100 MLS/HR Potassium Phosphate 15 mmol/ Sodium Chloride 105 ml @ 52.5 mls/hr 1X ONCE 02/16/21 15:00 02/16/21 16:59 DC 02/16/21 15:43 52.5 MLS/HR Potassium Phosphate 30 mmol/ Multivitamins 10 ml/Zinc/Copper/ Manganese/ Selenium 1 ml/ Total Parenteral Nutrition/Amino Acids/Dextrose/ Fat Emulsion Intravenous 1,440 ml @ 60 mls/hr TPN CONT 02/22/21 22:00 02/23/21 21:59 DC Prochlorperazine Edisylate (Compazine) 5 mg PACU PRN PRN 02/13/21 06:00 02/13/21 21:00 DC Propofol (Diprivan) 200 mg STK-MED ONCE 02/13/21 09:36 02/13/21 09:36 DC Ringer's Solution 1,000 ml @ 30 mls/hr Q24H 02/13/21 06:00 02/13/21 18:00 DC Rocuronium [place] (Zemuron) 50 mg STK-MED ONCE 02/13/21 13:53 02/13/21 13:54 DC Sodium Acetate 90 meq/Sodium Phosphate 20 mmol/ Potassium Chloride 30 meq/ Potassium Phosphate 20 mmol/ Multivitamins 10 ml/Zinc/Copper/ Manganese/ Selenium 1 ml/ Total Parenteral Nutrition/Amino Acids/Dextrose/ Fat Emulsion Intravenous 1,080 ml @ 45 mls/hr TPN CONT 02/18/21 22:00 02/19/21 21:59 DC 02/18/21 21:35 45 MLS/HR Sodium Chloride (Normal Saline Flush) 3 ml QSHIFT PRN 02/13/21 17:15 Sodium Chloride 90 meq/Potassium Chloride 50 meq/ Potassium Phosphate 20 mmol/ Magnesium Sulfate 10 meq/Calcium Gluconate 10 meq/ Multivitamins 10 ml/Zinc/Copper/ Manganese/ Selenium 1 ml/ Total Parenteral Nutrition/Amino Acids/Dextrose/ Fat Emulsion Intravenous 1,296 ml @ 54 mls/hr TPN CONT 02/16/21 22:00 02/17/21 21:59 DC 02/16/21 21:24 54 MLS/HR Sodium Chloride 90 meq/Sodium Phosphate 10 mmol/ Potassium Chloride 50 meq/ Potassium Phosphate 20 mmol/ Magnesium Sulfate 5 meq/ Multivitamins 10 ml/Zinc/Copper/ Manganese/ Selenium 1 ml/ Total Parenteral Nutrition/Amino Acids/Dextrose/ Fat Emulsion Intravenous 1,080 ml @ 45 mls/hr TPN CONT 02/17/21 22:00 02/18/21 21:59 DC 02/17/21 21:12 45 MLS/HR Sodium Phosphate 15 mmol/Sodium Chloride 105 ml @ 105 mls/hr 1X ONCE 02/18/21 10:00 02/18/21 10:59 DC 02/18/21 09:20 105 MLS/HR Sodium Phosphate 20 mmol/Potassium Phosphate 20 mmol/ Multivitamins 10 ml/Zinc/Copper/ Manganese/ Selenium 1 ml/ Total Parenteral Nutrition/Amino Acids/Dextrose/ Fat Emulsion Intravenous 1,320 ml @ 55 mls/hr TPN CONT 02/21/21 22:00 02/22/21 21:59 DC Sodium Phosphate 20 mmol/Sodium Chloride 256.6667 ml @ 64.167 m... 1X ONCE 02/17/21 09:15 02/17/21 13:14 UNV Sodium Phosphate 40 mmol/ Multivitamins 10 ml/Zinc/Copper/ Manganese/ Selenium 1 ml/ Total Parenteral Nutrition/Amino Acids/Dextrose/ Fat Emulsion Intravenous 1,080 ml @ 45 mls/hr TPN CONT 02/20/21 22:00 02/21/21 12:43 DC 02/20/21 22:45 45 MLS/HR Succinylcholine Chloride (Anectine) 200 mg STK-MED ONCE 02/13/21 09:38 02/13/21 09:38 DC Vancomycin HCl (Vanco Per Pharmacy) 1 each PRN DAILY PRN 02/15/21 21:30 02/16/21 11:17 DC 02/16/21 03:40 1 EACH Vancomycin HCl (Vancomycin Trough Level) 1 each 1X ONCE 02/17/21 22:30 02/16/21 11:17 DC Vancomycin HCl 1.75 gm/Sodium Chloride 500 ml @ 250 mls/hr 1X ONCE 02/15/21 22:00 02/15/21 23:59 DC 02/15/21 23:00 250 MLS/HR Vancomycin HCl 1 gm/Sodium Chloride 250 ml @ 250 mls/hr Q24H 02/16/21 23:00 02/16/21 11:16 DC Lab Laboratory Tests Test 02/23/21 16:58 02/23/21 20:38 02/24/21 08:01 02/24/21 11:15 Glucose (Fingerstick) 322 mg/dL (70-99) 248 mg/dL (70-99) 150 mg/dL (70-99) Sodium Level 157 mmol/L (136-145) Potassium Level 3.1 mmol/L (3.5-5.1) Chloride Level 120 mmol/L (98-107) Carbon Dioxide Level 28 mmol/L (21-32) Anion Gap 9 (6-14) Blood Urea Nitrogen 39 mg/dL (7-20) Creatinine 0.8 mg/dL (0.6-1.0) Estimated GFR (Cockcroft-Gault) 69.6 Glucose Level 204 mg/dL (70-99) Calcium Level 7.1 mg/dL (8.5-10.1) Test 02/24/21 11:21 Glucose (Fingerstick) 164 mg/dL (70-99) Results All relevant outside records, renal labs, imaging studies, telemetry/EKG's were reviewed. Justicifation of Admission Dx: Justifications for Admission: Justification of Admission Dx: Yes ARMINDA LYMAN MD Feb 24, 2021 14:24
--- NOTE | 2021-02-24 14:37 | PDOC ---
PROGRESS NOTES Date of Service: DATE: 02/24/21 TIME: 14:34 Subjective Subjective Comfortable, afebrile Objective Objective Vital Signs Date Time Temp Pulse Resp B/P (MAP) Pulse Ox O2 Delivery O2 Flow Rate FiO2 02/24/21 13:11 76 159/65 02/24/21 11:52 93 Nasal Cannula 3.0 02/24/21 11:00 96.5 18 96.5 Intake and Output 02/24/21 07:00 Intake Total 600 ml Output Total 1085 ml Balance -485 ml Intake Oral 600 ml Output Urine Total 985 ml Drainage Total 100 ml Physical Exam Abdomen: Soft, Other (drains in place) Heart: Regular rate Extremities: No edema, Normal pulses General: Cooperative, No acute distress HEENT: Atraumatic Lungs: Other (Mildly decreased breath sounds) Neuro: Normal speech Psych/Mental Status: Mental status NL Skin: No significant lesion Assessment Assessment 1. S/p ventricular hernia repair 02/13: Continue postop care per general surgery 2. Post-op AFIB/flutter with RVR; maintaining SR with PACs and PVCs. Patient currently poor candidate for long-term anticoagulation secondary to anemia 3. Acute respiratory failure with AECOPD, CHF compensated 4. Acute diastolic CHF; echo with preserved LV systolic function, compensated 5. Hypertensive urgency: improving 6. Anemia; 7. H/o breast CA s/p radiation 8. Hyperkalemia; resolved 9. Encephalopathy: resolved 10. Hypernatremia: nephrology following Comment Review of Relevant I have reviewed the following items keely (where applicable) has been applied. Labs Laboratory Tests Test 02/23/21 16:58 02/23/21 20:38 02/24/21 08:01 02/24/21 11:15 Glucose (Fingerstick) 322 mg/dL (70-99) 248 mg/dL (70-99) 150 mg/dL (70-99) Sodium Level 157 mmol/L (136-145) Potassium Level 3.1 mmol/L (3.5-5.1) Chloride Level 120 mmol/L (98-107) Carbon Dioxide Level 28 mmol/L (21-32) Anion Gap 9 (6-14) Blood Urea Nitrogen 39 mg/dL (7-20) Creatinine 0.8 mg/dL (0.6-1.0) Estimated GFR (Cockcroft-Gault) 69.6 Glucose Level 204 mg/dL (70-99) Calcium Level 7.1 mg/dL (8.5-10.1) Test 02/24/21 11:21 Glucose (Fingerstick) 164 mg/dL (70-99) Medications Current Medications Amoxicillin/ Clavulanate Potassium (Augmentin 875/ 125mg) 1 tab BID PO Last administered on 02/24/21at 13:07; Start 02/24/21 at 11:30 Diltiazem HCl (Cardizem 24hr Cd) 240 mg DAILY PO Last administered on 02/24/21at 09:14; Start 02/24/21 at 09:00 Insulin Human Lispro (HumaLOG) 0-7 UNITS QIDACHS SQ Last administered on 02/23/21at 21:52; Start 02/23/21 at 17:15 Methylprednisolone Sodium Succinate (SOLU-Medrol 125MG VIAL) 60 mg DAILY IV ; Start 02/24/21 at 09:00 Vitals/I & O Vital Sign - Last 24 Hours 02/23/21 02/23/21 02/23/21 02/23/21 15:00 16:02 17:53 18:27 Temp 97.6 97.6 Pulse 78 90 Resp 18 B/P (MAP) 159/65 (96) Pulse Ox 97 95 95 O2 Delivery Nasal Cannula Nasal Cannula Nasal Cannula O2 Flow Rate 3.0 3.0 3.0 02/23/21 02/23/21 02/23/21 02/23/21 19:00 19:50 23:00 23:49 Temp 97.7 98.2 97.7 98.2 Pulse 89 75 75 Resp 19 18 B/P (MAP) 168/76 (106) 160/65 (96) 160/65 Pulse Ox 97 93 O2 Delivery Nasal Cannula Nasal Cannula Nasal Cannula O2 Flow Rate 3.0 3.0 3.0 02/24/21 02/24/21 02/24/21 02/24/21 03:00 06:29 07:00 07:41 Temp 98.0 97.9 98.0 97.9 Pulse 85 85 89 Resp 18 18 B/P (MAP) 166/88 (114) 166/88 165/74 (104) Pulse Ox 91 97 92 O2 Delivery Nasal Cannula Nasal Cannula Nasal Cannula O2 Flow Rate 3.0 3.0 3.0 02/24/21 02/24/21 02/24/21 02/24/21 07:42 08:00 09:14 09:15 Pulse 93 84 B/P (MAP) 165/74 165/74 Pulse Ox 92 O2 Delivery Nasal Cannula Nasal Cannula O2 Flow Rate 3.0 3.0 02/24/21 02/24/21 02/24/21 11:00 11:52 13:11 Temp 96.5 96.5 Pulse 87 76 Resp 18 B/P (MAP) 179/74 (109) 159/65 Pulse Ox 93 93 O2 Delivery Nasal Cannula Nasal Cannula O2 Flow Rate 3.0 3.0 Intake and Output 02/23/21 02/23/21 02/24/21 15:00 23:00 07:00 Intake Total 300 ml 300 ml 0 ml Output Total 350 ml 60 ml 675 ml Balance -50 ml 240 ml -675 ml ALICE LOVE MD Feb 24, 2021 14:37
[2021-02-24 15:00] VITALS: BP 160/66
[2021-02-24] MEDS: predniSONE 20 MG TABLET PO SCH (16:05)
[2021-02-24] MEDS: ACETAMINOPHEN 325 MG TABLET. PO PRN (16:06)
[2021-02-24] MEDS: BENZOCAINE/MENTHOL LOZENGE. PO PRN (16:06)
[2021-02-24] MEDS: ENOXAPARIN 40 MG/0.4 ML SYRINGE. SQ SCH (18:21)
[2021-02-24 19:40] VITALS: BP 153/65
--- NOTE | 2021-02-24 20:36 | NUR ---
Nursing engineering team supervisor notified this morning that PICC needs fixed or replaced. Warren still has not been here. Some of patient's meds switched to PO & patient taking PO fluids/food for now.
[2021-02-24] MEDS: FAMOTIDINE 20 MG TABLET. PO SCH (21:55)
[2021-02-24] MEDS: LACTOBACILLUS RHAMNOSUS GG 1 CAPSULE. PO SCH (21:55)
[2021-02-24] MEDS: INSULIN GLARGINE SYRINGE. SQ SCH (22:03)
[2021-02-24 23:00] VITALS: BP 157/65
[2021-02-25] MEDS: IV DEXTROSE 5% 1,000 ML IV SCH ×4 (00:15→20:15)
[2021-02-25] MEDS: NITROGLYCERIN OINT 1 GM PACKET. TP SCH ×5 (00:29→23:07)
[2021-02-25 03:25] VITALS: BP 159/70
[2021-02-25] MEDS: ALBUTEROL SULFATE 2.5 MG/3 ML NEBU. NEB PRN (04:38)
[2021-02-25 07:00] VITALS: BP 162/67
[2021-02-25] MEDS: INSULIN LISPRO 300 UNITS/3 ML VIAL. SQ SCH ×4 (07:30→21:00)
[2021-02-25] MEDS: BUDESONIDE 0.5 MG/2 ML NEBU. NEB SCH ×2 (07:36→20:03)
[2021-02-25] MEDS: IPRATROPIUM BROMIDE 0.5 MG/2.5 ML NEBU. NEB SCH ×4 (07:36→20:03)
[2021-02-25] MEDS ORDERED: predniSONE 20 MG TABLET PO SCH (09:00)
[2021-02-25] MEDS ORDERED: PHENOL ORAL SPRAY 177ML BOTTLE. PO PRN (09:00)
--- NOTE | 2021-02-25 09:02 | PDOC ---
[facility] PROGRESS NOTE Date of Service DOS: DATE: 02/25/21 TIME: 08:55 Chief Complaint Chief Complaint A/P: Abdominal pain S/p ventricular hernia repair 02/13 Post-op AFIB/flutter with RVR - SR with PACs. on lovenox ppx dosing and IV metoprolol Acute respiratory failure - likely secondary to acute COPD and acute diastolic CHF worsened by Afib as above Acute diastolic CHF - cardiology following, Echo with no reduction in EF Hypertensive urgency - seems to be due to pain Anemia - hgb drift to 8.2 H/o breast CA s/p radiation Hyperkalemia - resolved Encephalopathy - remains lethargic Chronic obstructive pulmonary disease, unknown FEV1 History of Present Illness History of Present Illness Ms Dyson is a 75yo female w/ PMHx rheumatoid arthritis, depression, hypertension, breast cancer and prior colectomy who was admitted for a large ventral hernia repair which she underwent on February 13. Had done really well after surgery initially she was actually planning to start trialing liquids, but was transferred to ICU for concern for sepsis and new onset A. fib with RVR requiring a Cardizem drip, cardiology, Infectious Disease and pulmonary were consulted. Patient started on broad-spectrum antibiotics. Pulmonary following. 02/16: ICU today. Her condition has significantly improved since last night. She is awake alert and oriented able to answer questions says pain is under control. Blood pressure holding steady. Remains on Cardizem drip. Continue antibiotics today. Requesting to drink if she can, will defer this decision to surgery. 02/17: She is complaining about some shortness of breath but is feeling comfortable. We will try 1 dose of Lasix today based upon chest x-ray. 02/18: Evaluated at bedside. Patient resting in bed. Appears to be in normal sinus rhythm. No major clinical changes otherwise. 02/19: Evaluated at bedside. Patient resting in bed pursed lip breathing D/W XAVIER/ [employer]IVING SKILL[employer] ADVISOR, ABG pending d/w in room k 5.8 on tpn pharmacy to adjust k in tpn 02/20: Evaluated at bedside. D/W XAVIER/ LIVING SKILLS ADVISOR, ABG pending d/w in room k 5.8 on tpn pharmacy to adjust k in tpn 02/21: Transferred from ICU overnight. Still very confused. Family says she said hello. Moving all 4 extremities. Afebrile. NA 156. WBC 19.2, Hb 8.1. D/w family bedside. 02/22: NA 158. Afebrile. Asking for coffee. Still requiring 3L NCO2. D/w surgery given her deconditioning and need for IV nutrition she would need likely referral to LTACH. 02/23: NA 162. Afebrile. More alert. Asking for food. No BM. Very weak, d/w beside to consider LTACH. Chest radiograph with PICC crossing midline. Diet advanced 02/24: Afebrile overnight. Feeling a little worse. She is taking p.o. had some juice had a bowel movement. Chest radiograph revealed PICC has become malpositioned. IV on hold. Afebrile. NA 137. Feels a little hot. Has been upset about PICC and making sure she is getting her medications. Reassured she can appropriately medicated by mouth. She is asking for some cold to drink. Noted she still on thickened liquids Vitals/I&O Vitals/I&O: Vital Signs Date Time Temp Pulse Resp B/P (MAP) Pulse Ox O2 Delivery O2 Flow Rate FiO2 02/25/21 07:38 95 Nasal Cannula 3.0 02/25/21 07:00 97.5 81 20 162/67 (98) 97.5 I & O 02/24/21 02/24/21 02/25/21 15:00 23:00 07:00 Intake Total 100 ml Output Total 635 ml 470 ml Balance -635 ml -370 ml Physical Exam Physical Exam: GENERAL: Sleepy but arousable HEENT: Normocephalic, atraumatic. Anicteric. Dry mouth NECK: Supple. No JVD. LUNGS: Rales present + for wheezing HEART: Irregularly irregular no murmurs appreciated ABDOMEN: Obese , distended binder in place, not taken down, intact dry Hypoactive bowel sounds [address] EXTREMITIES mild edema present, no cyanosis MUSCULOSKELETAL: No joint swelling. No decrease in range of motion. CENTRAL NERVOUS SYSTEM: Sleepy, arousable PSYCHIATRIC: Cooperative, sleepy PICC line clean General: Cooperative, No acute distress Heart: Regular rate Lungs: Clear Abdomen: Soft, Other (drains in place) Extremities: No edema, Normal pulses Skin: No significant lesion Labs Labs: Laboratory Tests Test 02/24/21 11:15 02/24/21 11:21 02/24/21 16:45 02/24/21 21:11 Sodium Level 157 mmol/L (136-145) Potassium Level 3.1 mmol/L (3.5-5.1) Chloride Level 120 mmol/L (98-107) Carbon Dioxide Level 28 mmol/L (21-32) Anion Gap 9 (6-14) Blood Urea Nitrogen 39 mg/dL (7-20) Creatinine 0.8 mg/dL (0.6-1.0) Estimated GFR (Cockcroft-Gault) 69.6 Glucose Level 204 mg/dL (70-99) Calcium Level 7.1 mg/dL (8.5-10.1) Glucose (Fingerstick) 164 mg/dL (70-99) 202 mg/dL (70-99) 158 mg/dL (70-99) Test 02/25/21 07:42 Glucose (Fingerstick) 138 mg/dL (70-99) Comment Review of Relevant I have reviewed the following items keely (where applicable) has been applied. Medications: Current Medications Medications (Trade) Dose Ordered Sig/Isael Route PRN Reason Start Time Stop Time Status Last Admin Dose Admin Diltiazem HCl (Cardizem 24hr Cd) 240 mg DAILY PO 02/24/21 09:00 02/24/21 09:14 Amoxicillin/ Clavulanate Potassium (Augmentin 875/ 125mg) 1 tab BID PO 02/24/21 11:30 02/24/21 21:55 Throat Lozenges (Cepacol Sore Throat Lozenge) 1 zulay PRN Q2HRS PRN PO SORE THROAT 02/24/21 14:45 02/24/21 16:06 Acetaminophen (Tylenol) 650 mg PRN Q6HRS PRN PO MILD PAIN / TEMP > 100.3'F 02/24/21 14:45 02/24/21 16:06 Famotidine (Pepcid) 20 mg BID PO 02/24/21 21:00 02/24/21 21:55 Prednisone (Prednisone) 20 mg DAILY PO 02/24/21 15:30 02/24/21 16:05 Lactobacillus Rhamnosus (Culturelle) 1 cap BID PO 02/24/21 21:00 10/2/21 21:55 Justifications for Admission Other Justification BENY HOLMAN MD Feb 25, 2021 09:02
[2021-02-25] MEDS: FAMOTIDINE 20 MG TABLET. PO SCH ×2 (09:17→22:51)
[2021-02-25] MEDS: LACTOBACILLUS RHAMNOSUS GG 1 CAPSULE. PO SCH ×2 (09:17→22:51)
[2021-02-25] MEDS: predniSONE 20 MG TABLET PO SCH (09:17)
[2021-02-25] MEDS: AMOXICILLIN/K CLAV 875/125MG TABLET. PO SCH ×2 (09:17→22:50)
[2021-02-25] MEDS: LISINOPRIL 20 MG TABLET PO SCH (09:18)
[2021-02-25] MEDS: BENZOCAINE/MENTHOL LOZENGE. PO PRN (09:25)
--- NOTE | 2021-02-25 09:33 | PDOC ---
Infectious Disease Note Subjective: Subjective Patient tolerating p.o. intake well has some loose bowel movements Has black stools Afebrile at bedside Vital Signs: Vital Signs Vital Signs Date Time Temp Pulse Resp B/P (MAP) Pulse Ox O2 Delivery O2 Flow Rate FiO2 02/25/21 09:18 81 162/67 02/25/21 07:38 95 Nasal Cannula 3.0 02/25/21 07:00 97.5 20 97.5 Physical Exam: PHYSICAL EXAM GENERAL: Sleepy but arousable HEENT: Normocephalic, atraumatic. Anicteric. Dry mouth NECK: Supple. No JVD. LUNGS: Rales present + for wheezing HEART: Irregularly irregular no murmurs appreciated ABDOMEN: Obese , distended binder in place, not taken down, intact dry Hypoactive bowel sounds [address] EXTREMITIES mild edema present, no cyanosis MUSCULOSKELETAL: No joint swelling. No decrease in range of motion. CENTRAL NERVOUS SYSTEM: Sleepy, arousable PSYCHIATRIC: Cooperative, sleepy PICC line clean Medications: Inpatient Meds: Medications reviewed. Labs: Lab Laboratory Tests Test 02/24/21 11:15 02/24/21 11:21 02/24/21 16:45 02/24/21 21:11 Sodium Level 157 mmol/L (136-145) Potassium Level 3.1 mmol/L (3.5-5.1) Chloride Level 120 mmol/L (98-107) Carbon Dioxide Level 28 mmol/L (21-32) Anion Gap 9 (6-14) Blood Urea Nitrogen 39 mg/dL (7-20) Creatinine 0.8 mg/dL (0.6-1.0) Estimated GFR (Cockcroft-Gault) 69.6 Glucose Level 204 mg/dL (70-99) Calcium Level 7.1 mg/dL (8.5-10.1) Glucose (Fingerstick) 164 mg/dL (70-99) 202 mg/dL (70-99) 158 mg/dL (70-99) Test 02/25/21 07:42 Glucose (Fingerstick) 138 mg/dL (70-99) Objective: Assessment: Status post large ventral hernia repair on February 12, 2021 Possible ileus Encephalopathy appears metabolic improved Leukocytosis on steroids Febrile illness resolved Anemia A. fib with RVR CHF Renal insufficiency Rheumatoid arthritis Depression History of breast cancer Hypertension Hyperkalemia Plan: Plan of Care Continue Augmentin , Pt does not need mcc picc line from ID standpoint, explained to patient and at bedside DC if not needed per primary care Leukocytosis also on steroids General surgery following Continue local wound care/drain management as directed Continue aspiration precautions Check C. difficile PCR Discussed with at bedside MELINDA MONTEMAYOR MD Feb 25, 2021 09:33
--- NOTE | 2021-02-25 10:32 | PDOC ---
SURGICAL PROGRESS NOTE DATE: 02/25/21 TIME: 10:30 Subjective taking small amounts of PO sleeping this AM, does arouse present Vital Signs Vital Signs Date Time Temp Pulse Resp B/P (MAP) Pulse Ox O2 Delivery O2 Flow Rate FiO2 02/25/21 09:18 81 162/67 02/25/21 07:38 95 Nasal Cannula 3.0 02/25/21 07:00 97.5 20 97.5 I&O Intake and Output 02/25/21 07:00 Intake Total 100 ml Output Total 1105 ml Balance -1005 ml Intake Oral 100 ml Output Urine Total 1050 ml Drainage Total 55 ml # Bowel Movements 5 General: Cooperative, No acute distress Abdomen: Soft, Other (drains in place) Labs Laboratory Tests Test 02/23/21 12:19 02/23/21 16:58 02/23/21 20:38 02/24/21 08:01 Glucose (Fingerstick) 247 mg/dL (70-99) 322 mg/dL (70-99) 248 mg/dL (70-99) 150 mg/dL (70-99) Test 02/24/21 11:15 02/24/21 11:21 02/24/21 16:45 02/24/21 21:11 Sodium Level 157 mmol/L (136-145) Potassium Level 3.1 mmol/L (3.5-5.1) Chloride Level 120 mmol/L (98-107) Carbon Dioxide Level 28 mmol/L (21-32) Anion Gap 9 (6-14) Blood Urea Nitrogen 39 mg/dL (7-20) Creatinine 0.8 mg/dL (0.6-1.0) Estimated GFR (Cockcroft-Gault) 69.6 Glucose Level 204 mg/dL (70-99) Calcium Level 7.1 mg/dL (8.5-10.1) Glucose (Fingerstick) 164 mg/dL (70-99) 202 mg/dL (70-99) 158 mg/dL (70-99) Test 02/25/21 07:42 Glucose (Fingerstick) 138 mg/dL (70-99) Laboratory Tests Test 02/24/21 11:15 02/24/21 11:21 02/24/21 16:45 02/24/21 21:11 Sodium Level 157 mmol/L (136-145) Potassium Level 3.1 mmol/L (3.5-5.1) Chloride Level 120 mmol/L (98-107) Carbon Dioxide Level 28 mmol/L (21-32) Anion Gap 9 (6-14) Blood Urea Nitrogen 39 mg/dL (7-20) Creatinine 0.8 mg/dL (0.6-1.0) Estimated GFR (Cockcroft-Gault) 69.6 Glucose Level 204 mg/dL (70-99) Calcium Level 7.1 mg/dL (8.5-10.1) Glucose (Fingerstick) 164 mg/dL (70-99) 202 mg/dL (70-99) 158 mg/dL (70-99) Test 02/25/21 07:42 Glucose (Fingerstick) 138 mg/dL (70-99) Assessment/Plan improving gradually Justicifation of Admission Dx: Justifications for Admission: Justification of Admission Dx: Yes LELA MAIRE APRN Feb 25, 2021 10:32
[2021-02-25 11:00] VITALS: BP 152/65
--- NOTE | 2021-02-25 11:08 | PDOC ---
PULMONARY PROGRESS NOTES DATE: 02/25/21 TIME: 11:05 Subjective No shortness of breath or cough. Vitals Vital Signs Date Time Temp Pulse Resp B/P (MAP) Pulse Ox O2 Delivery O2 Flow Rate FiO2 02/25/21 09:18 81 162/67 02/25/21 08:00 Nasal Cannula 3.0 02/25/21 07:38 95 02/25/21 07:00 97.5 20 97.5 Comments ros as mentioned above other sys otherwise neg General: Alert, No acute distress Lungs: Clear Cardiovascular: S1 Abdomen: Soft, Other (Tender in the lower quadrants) Skin: Warm Labs Laboratory Tests Test 02/23/21 12:19 02/23/21 16:58 02/23/21 20:38 02/24/21 08:01 Glucose (Fingerstick) 247 mg/dL (70-99) 322 mg/dL (70-99) 248 mg/dL (70-99) 150 mg/dL (70-99) Test 02/24/21 11:15 02/24/21 11:21 02/24/21 16:45 02/24/21 21:11 Sodium Level 157 mmol/L (136-145) Potassium Level 3.1 mmol/L (3.5-5.1) Chloride Level 120 mmol/L (98-107) Carbon Dioxide Level 28 mmol/L (21-32) Anion Gap 9 (6-14) Blood Urea Nitrogen 39 mg/dL (7-20) Creatinine 0.8 mg/dL (0.6-1.0) Estimated GFR (Cockcroft-Gault) 69.6 Glucose Level 204 mg/dL (70-99) Calcium Level 7.1 mg/dL (8.5-10.1) Glucose (Fingerstick) 164 mg/dL (70-99) 202 mg/dL (70-99) 158 mg/dL (70-99) Test 02/25/21 07:42 Glucose (Fingerstick) 138 mg/dL (70-99) Laboratory Tests Test 02/24/21 11:15 02/24/21 11:21 02/24/21 16:45 02/24/21 21:11 Sodium Level 157 mmol/L (136-145) Potassium Level 3.1 mmol/L (3.5-5.1) Chloride Level 120 mmol/L (98-107) Carbon Dioxide Level 28 mmol/L (21-32) Anion Gap 9 (6-14) Blood Urea Nitrogen 39 mg/dL (7-20) Creatinine 0.8 mg/dL (0.6-1.0) Estimated GFR (Cockcroft-Gault) 69.6 Glucose Level 204 mg/dL (70-99) Calcium Level 7.1 mg/dL (8.5-10.1) Glucose (Fingerstick) 164 mg/dL (70-99) 202 mg/dL (70-99) 158 mg/dL (70-99) Test 02/25/21 07:42 Glucose (Fingerstick) 138 mg/dL (70-99) Medications Active Scripts Medications Dose Route/Sig Max Daily Dose Days Date Category Vitamin B12 (Cyanocobalamin (Vitamin B-12)) 2,500 Mcg Tablet 500 Mg PO BID 02/15/21 Reported Nexium Capsule (Esomeprazole Magnesium) 40 Mg Capsule.dr Ruiz Cap PO BID 02/15/21 Reported Calcium 600 + Vit D 800 Tab (Calcium Carbonate/Vitamin D3) 1 Each Tablet 1 Tab PO BID 30 02/15/21 Reported Benefiber (Wheat Dextrin) 1 Each Powd.pack 1 Each PO DAILY 02/15/21 Reported Lisinopril 10 Mg Tablet 1 Tab PO DAILY 02/15/21 Reported Leflunomide 10 Mg Tablet 10 Mg PO DAILY 02/15/21 Reported Prednisone 2.5 Mg Tablet 5 Mg PO DAILY 02/15/21 Reported Metoprolol Tartrate 25 Mg Tablet 1 Tab PO DAILY 02/15/21 Reported Hydrocodone-Apap 5-325 (Hydrocodone Bit/Acetaminophen) 1 Tab Tablet 1 Tab PO PRN BID PRN 02/15/21 Reported Gabapentin 100 Mg Capsule 100 Mg PO PRN BID PRN 02/15/21 Reported Folic Acid 0.8 Mg Tablet 3 Mg PO DAILY 02/15/21 Reported Cymbalta (Duloxetine Hcl) 30 Mg Capsule.dr Ruiz Cap PO DAILY 02/15/21 Reported Prolia (Denosumab) 60 Mg/1 Ml Disp.syrin 1 Syr SQ [id number] 1 02/15/21 Reported Celexa (Citalopram Hydrobromide) 10 Mg Tablet 1 Tab PO DAILY 02/15/21 Reported Alprazolam 0.25 Mg Tablet 0.25 Mg PO PRN DAILY PRN 02/15/21 Reported Impression . IMPRESSION: 1. Acute hypoxemic respiratory failure, multifactorial. 2. Abnormal x-ray, compatible with effusion, possibly congestive heart failure. Possible pneumonia. She does have underlying interstitial lung disease likely related to rheumatoid arthritis. 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 A. fib with rapid ventricular response, controlled 4. Leukocytosis. 5. Fever. resolved 6. Status post large ventral hernia repair on 02/13. 7. Rheumatoid arthritis with previously diagnosed as interstitial lung disease. 8. Hypertension. 9. Breast cancer, status post radiation. 10. Tobacco dependence, in remission. 11. Chronic obstructive pulmonary disease, unknown FEV1 12. Multifactorial encephalopathy/delirium/toxic encephalopathy, initially contributed by Dilaudid., 13. Hyponatremia, may also be contributing to encephalopathy. Plan . Discussed with patient's and RN minimize the narcotics as much as possible. Patient being followed by nephrology regarding hyponatremia. This may be contributing to patient's confusion. Level trending down. repeat cxr reviewed. There is improving right upper lobe interstitial infiltrate. Antibiotics per ID off lasix taper off steroids quickly. Now baseline dose for rheumatoid arthritis Cardiology recommendations for A. fib. Nephrology rec for hypernatremia Discussed with at the bedside in detail. I explained to him that from a pulmonary standpoint she is stable. Her right upper lobe infiltrate on a recent chest x-ray is improving as well. MACIEJ YOUNG MD Feb 25, 2021 11:08
--- NOTE | 2021-02-25 12:28 | PDOC ---
PROGRESS NOTES Date of Service: DATE: 02/25/21 TIME: 12:21 Subjective Subjective Comfortable, no new complaints. Objective Objective Vital Signs Date Time Temp Pulse Resp B/P (MAP) Pulse Ox O2 Delivery O2 Flow Rate FiO2 02/25/21 09:18 81 162/67 02/25/21 08:00 Nasal Cannula 3.0 02/25/21 07:38 95 02/25/21 07:00 97.5 20 97.5 Intake and Output 02/25/21 07:00 Intake Total 100 ml Output Total 1105 ml Balance -1005 ml Intake Oral 100 ml Output Urine Total 1050 ml Drainage Total 55 ml # Bowel Movements 5 Physical Exam Abdomen: Soft, Other (drains in place) Heart: Regular rate Extremities: No edema, Normal pulses General: Cooperative, No acute distress HEENT: Atraumatic Lungs: Other (Mildly decreased breath sounds) Neuro: Normal speech Psych/Mental Status: Mental status NL Skin: No significant lesion Assessment Assessment 1. S/p ventricular hernia repair 02/13: Continue postop care per general surgery 2. Post-op AFIB/flutter with RVR; maintaining SR with PACs and PVCs. Patient currently poor candidate for long-term anticoagulation secondary to anemia 3. Acute respiratory failure with AECOPD, CHF compensated 4. Acute diastolic CHF; echo with preserved LV systolic function, compensated 5. Hypertensive urgency: Labile probably secondary to pain 6. Anemia; 7. H/o breast CA s/p radiation 8. Hyperkalemia; resolved 9. Encephalopathy: resolved 10. Hypernatremia: nephrology following Comment Review of Relevant I have reviewed the following items keely (where applicable) has been applied. Labs Laboratory Tests Test 02/24/21 16:45 02/24/21 21:11 02/25/21 07:42 02/25/21 11:46 Glucose (Fingerstick) 202 mg/dL (70-99) 158 mg/dL (70-99) 138 mg/dL (70-99) 158 mg/dL (70-99) Medications Current Medications Acetaminophen (Tylenol) 650 mg PRN Q6HRS PRN PO MILD PAIN / TEMP > 100.3'F Last administered on 02/24/21at 16:06; Start 02/24/21 at 14:45 Famotidine (Pepcid) 20 mg BID PO Last administered on 02/25/21at 09:17; Start 02/24/21 at 21:00 Lactobacillus Rhamnosus (Culturelle) 1 cap BID PO Last administered on 02/25/21at 09:17; Start 02/24/21 at 21:00 Oxycodone/ Acetaminophen (Percocet 5/325) 1 tab PRN Q6HRS PRN PO MODERATE-KHRIS RE PAIN; Start 02/25/21 at 10:30 Phenol (Chloraseptic) 1 spray PRN Q2HR PRN PO SORE THROAT Last administered on 02/25/21at 09:30; Start 02/25/21 at 09:00 Prednisone (Prednisone) 20 mg DAILY PO Last administered on 02/25/21at 09:17; Start 02/24/21 at 15:30 Prednisone (Prednisone) 20 mg DAILY PO ; Start 02/25/21 at 09:00; Stop 02/24/21 at 15:25; Status DC Throat Lozenges (Cepacol Sore Throat Lozenge) 1 zulay PRN Q2HRS PRN PO SORE THROAT Last administered on 02/25/21at 09:25; Start 02/24/21 at 14:45 Vitals/I & O Vital Sign - Last 24 Hours 02/24/21 02/24/21 02/24/21 02/24/21 13:11 15:00 16:15 18:17 Temp 97.4 97.4 Pulse 76 76 Resp 18 B/P (MAP) 159/65 160/66 (97) Pulse Ox 98 95 100 O2 Delivery Nasal Cannula Nasal Cannula Nasal Cannula O2 Flow Rate 3.0 3.0 3.0 02/24/21 02/24/21 02/24/21 02/24/21 18:24 19:40 20:00 23:00 Temp 97.4 97.7 97.4 97.7 Pulse 83 86 86 Resp 22 20 B/P (MAP) 163/60 153/65 (94) 157/65 (95) Pulse Ox 96 97 O2 Delivery Nasal Cannula Nasal Cannula Nasal Cannula O2 Flow Rate 2.0 3.0 3.0 02/25/21 02/25/21 02/25/21 02/25/21 00:29 03:25 04:40 05:46 Temp 97.8 97.8 Pulse 86 91 91 Resp 20 B/P (MAP) 157/65 159/70 (99) 159/70 Pulse Ox 94 95 O2 Delivery Nasal Cannula Nasal Cannula O2 Flow Rate 3.0 3.0 02/25/21 02/25/21 02/25/21 02/25/21 07:00 07:37 07:38 08:00 Temp 97.5 97.5 Pulse 81 Resp 20 B/P (MAP) 162/67 (98) Pulse Ox 95 95 95 O2 Delivery Nasal Cannula Nasal Cannula Nasal Cannula Nasal Cannula O2 Flow Rate 3.0 3.0 3.0 3.0 02/25/21 02/25/21 09:18 09:18 Pulse 81 81 B/P (MAP) 162/67 162/67 Intake and Output 02/24/21 02/24/21 02/25/21 15:00 23:00 07:00 Intake Total 100 ml Output Total 635 ml 470 ml Balance -635 ml -370 ml ALICE LOVE MD Feb 25, 2021 12:28
[2021-02-25 13:34] LABS: ALBUMIN/GLOBULIN RATIO 0.6 (1.0-1.7); CALCIUM 7.2 mg/dL (8.5-10.1); CREATININE 0.8 mg/dL (0.6-1.0); GFR 69.6; POTASSIUM 3.4 mmol/L (3.5-5.1); TOTAL BILIRUBIN 0.6 mg/dL (0.2-1.0); TOTAL PROTEIN 5.3 g/dL (6.4-8.2)
[2021-02-25 13:47] LABS: BASO % 0 % (0-3); EOS % 0 % (0-3); HEMATOCRIT 26.5 % (36.0-47.0); HEMOGLOBIN 8.3 g/dL (12.0-15.5); LYMPH # 0.4 x10^3/uL (1.0-4.8); LYMPH % 2 % (24-48); MEAN CORPUSCULAR HEMOGLOBIN 29 pg (25-35); MEAN CORPUSCULAR HGB CONC 31 g/dL (31-37); MEAN CORPUSCULAR VOLUME 92 fL (79-100); MONO # 1.2 x10^3/uL (0.0-1.1); MONO % 6 % (0-9); NEUT # 19.7 x10^3/uL (1.8-7.7); NEUT % 92 % (31-73); PLATELET COUNT 164 x10^3/uL (140-400); RED BLOOD COUNT 2.89 x10^6/uL (3.50-5.40); RED CELL DISTRIBUTION WIDTH 16.5 % (11.5-14.5); WHITE BLOOD COUNT 21.4 x10^3/uL (4.0-11.0)
[2021-02-25 15:00] VITALS: BP 149/66
[2021-02-25] MEDS ORDERED: POTASSIUM CHLORIDE 20 MEQ TABLET.ER. PO ONE (15:30)
--- NOTE | 2021-02-25 16:26 | PDOC ---
DATE OF SERVICE DATE: 02/25/21 TIME: 16:21 SUBJECTIVE ROS Still on Honey thick, No free water intake by mouth , No IV access , feeling thirsty Has black stools OBJECTIVE Vital Signs Vital Signs Date Time Temp Pulse Resp B/P (MAP) Pulse Ox O2 Delivery O2 Flow Rate FiO2 02/25/21 12:21 95 Nasal Cannula 3.0 02/25/21 12:00 82 152/65 02/25/21 11:00 98.3 20 98.3 I & 0 Intake and Output 02/25/21 07:00 Intake Total 100 ml Output Total 1105 ml Balance -1005 ml Intake Oral 100 ml Output Urine Total 1050 ml Drainage Total 55 ml # Bowel Movements 5 PHYSICAL EXAM Physical Exam GENERALNAD HEENT: Normocephalic, atraumatic. Anicteric. OM dry NECK: Supple. LUNGS: Decreased at bases, Non labored ABD Soft, drains serosang, dressing to incision EXT Mild LE edema , swelling + hands HEART: S1S2 NEURO : grossly nonfocal. Generalized weakness Barraza in place , No CVA or SP tenderness DIAGNOSIS/ASSESSMENT Assessment & Plan Hyper Natremia- suspect 2/2 Overdiuresis , NPO Improved from 162->157 with IVF; No IV access since Friday night, not receiving IVF (Hypotonic D5W as ordered) , Na 159 today Swallow study - honey thick liquids Recommend IV D5W as ordered on 02/23 Blood glucose monitoring and management per primary . DW RN yesterday and again today HyperKalemia - Resolved K ,Monitor MARILEE at presentation- Cr 1.3 resolved .BUN in 60's stable, likely sec to steroids UOP improved Anemia- slow decreasing Hgb, defer to primary Acute hypoxemic respiratory failure, multifactorial- Abnormal x-ray A. fib with rapid ventricular response Status post large ventral hernia repair on 02/13. awaiting return of bowel function, still NPO . GS following Hypertension BP high COMMENT/RELEVANT DATA Meds Current Medications Medications (Trade) Dose Ordered Sig/Isael Start Time Stop Time Status Last Admin Dose Admin Acetaminophen (Tylenol) 650 mg PRN Q6HRS PRN 02/24/21 14:45 02/24/21 16:06 650 MG Albuterol Sulfate (Ventolin Neb Soln) 2.5 mg PRN Q4HRS PRN 02/18/21 06:45 02/25/21 04:38 2.5 MG Amoxicillin/ Clavulanate Potassium (Augmentin 875/ 125mg) 1 tab BID 02/24/21 11:30 02/25/21 09:17 1 TAB Budesonide (Pulmicort) 0.5 mg RTBID 02/18/21 20:00 02/25/21 07:36 0.5 MG Cefazolin Sodium (Ancef) 1 gm 1X PREOP PRN 02/13/21 10:00 02/13/21 15:08 DC Cefazolin Sodium/ Dextrose 0 ml @ As Directed STK-MED ONCE 02/13/21 09:45 02/13/21 09:45 DC Cefepime HCl (Maxipime) 2 gm Q12HR 02/16/21 12:00 02/20/21 08:33 DC 02/19/21 21:02 2 GM Dexamethasone Sodium Phosphate (Decadron) 4 mg STK-MED ONCE 02/13/21 09:36 02/13/21 09:36 DC Dextrose 1,000 ml @ 150 mls/hr Q6H40M 02/21/21 12:45 02/23/21 14:00 150 MLS/HR Dextrose (Dextrose 50%-Water Syringe) 12.5 gm PRN Q15MIN PRN 02/18/21 12:00 Digoxin (Lanoxin) 500 mcg 1X ONCE 02/19/21 14:45 02/19/21 14:46 DC 02/19/21 15:15 500 MCG Diltiazem HCl (Cardizem 24hr Cd) 240 mg DAILY 02/24/21 09:00 02/25/21 09:18 240 MG Diltiazem HCl 125 mg/Sodium Chloride 125 ml @ 5 mls/hr CONT PRN 02/15/21 21:30 02/23/21 12:24 DC 02/23/21 01:59 10 MLS/HR Enalaprilat (Vasotec Inj) 1.25 mg Q6HRS 02/22/21 12:00 02/23/21 12:24 DC 02/23/21 06:28 1.25 MG Enoxaparin Sodium (Lovenox 40mg Syringe) 40 mg Q24H 02/13/21 18:00 02/24/21 18:21 40 MG Epinephrine (S2 Racepinephrine) 0.5 ml 1X ONCE 02/17/21 14:15 02/17/21 14:16 DC 02/17/21 15:29 0.5 ML Famotidine (Pepcid Vial) 20 mg QHS 02/19/21 21:00 02/24/21 14:34 DC 02/22/21 21:15 20 MG Famotidine (Pepcid) 20 mg BID 02/24/21 21:00 02/25/21 09:17 20 MG Fentanyl Citrate (Fentanyl 2ml Vial) 25 mcg PRN Q2HRS PRN 02/21/21 10:15 Furosemide (Lasix) 40 mg DAILY 02/19/21 11:45 02/21/21 12:57 DC 02/21/21 08:37 40 MG Glycopyrrolate (Robinul) 1 mg STK-MED ONCE 02/13/21 16:33 02/13/21 16:33 DC Hydralazine HCl (Apresoline Inj) 10 mg 1X ONCE 02/21/21 14:15 02/21/21 17:30 DC 02/21/21 14:43 10 MG Hydromorphone HCl (Dilaudid) 0.2 mg PRN Q4HRS PRN 02/20/21 08:30 02/20/21 09:05 DC Info (FLU VACCINE SCREEN per RX) 1 each PRN DAILY PRN 02/14/21 23:30 Cancel Info (Tpn Per Pharmacy) 1 each PRN DAILY PRN 02/22/21 13:30 02/23/21 12:26 DC 02/22/21 15:04 1 EACH Insulin Glargine (Lantus Syringe) 8 unit QHS 02/20/21 21:00 02/24/21 22:03 8 UNIT Insulin Human Lispro (HumaLOG) 0-7 UNITS QIDACHS 02/23/21 17:15 02/24/21 18:33 4 UNITS Ipratropium Industry (Atrovent) 0.5 mg RTQID 02/16/21 08:00 02/25/21 12:21 0.5 MG Ketorolac Tromethamine (Toradol 15mg Vial) 15 mg 1X ONCE 02/14/21 09:15 02/14/21 09:19 DC 02/14/21 09:33 15 MG Labetalol HCl (Normodyne Iv Push) 20 mg PRN Q2HR PRN 02/21/21 12:15 Lactobacillus Rhamnosus (Culturelle) 1 cap BID 02/24/21 21:00 02/25/21 09:17 1 CAP Lidocaine HCl (Lidocaine Pf 2% Vial) 5 ml STK-MED ONCE 02/13/21 09:36 02/13/21 09:36 DC Linezolid/Dextrose 300 ml @ 300 mls/hr Q12HR 02/16/21 12:00 02/19/21 10:34 DC 02/19/21 09:22 300 MLS/HR Lisinopril (Prinivil) 20 mg DAILY 02/23/21 12:30 02/25/21 09:18 20 MG Lorazepam (Ativan Inj) 1 mg PRN Q4HRS PRN 02/17/21 11:15 02/18/21 14:43 DC 02/18/21 14:31 1 MG Methylprednisolone Sodium Succinate (SOLU-Medrol 40MG VIAL) 60 mg Q8HRS 02/20/21 14:00 02/23/21 12:23 DC 02/23/21 06:31 60 MG Methylprednisolone Sodium Succinate (SOLU-Medrol 125MG VIAL) 60 mg DAILY 02/24/21 09:00 02/24/21 14:34 DC Metoprolol Tartrate (Lopressor Vial) 5 mg Q6HRS 02/19/21 18:00 02/23/21 13:54 DC 02/23/21 06:27 5 MG Metronidazole 100 ml @ 100 mls/hr Q12HR 02/15/21 22:00 02/19/21 10:34 DC 02/19/21 09:21 100 MLS/HR Morphine Sulfate (Morphine Sulfate) 1 mg 1X ONCE 02/17/21 11:15 02/17/21 11:16 DC 02/17/21 11:20 1 MG Naloxone HCl (Narcan) 0.4 mg PRN Q2MIN PRN 02/13/21 17:15 02/19/21 08:26 0.4 MG Neostigmine Industry (Neostigmine Methylsulfate) 5 mg STK-MED ONCE 02/13/21 16:33 02/13/21 16:33 DC Nitroglycerin (Nitro-Bid Oint) 1 inch Q6HRS 02/20/21 13:00 02/25/21 12:00 1 INCH Ondansetron HCl (Zofran) 4 mg PRN Q6HRS PRN 02/13/21 17:15 02/22/21 15:32 4 MG Oxycodone/ Acetaminophen (Percocet 5/325) 1 tab PRN Q6HRS PRN 02/25/21 10:30 Phenol (Chloraseptic) 1 spray PRN Q2HR PRN 02/25/21 09:00 02/25/21 09:30 1 SPRAY Piperacillin Sod/ Tazobactam Sod 3.375 gm/Sodium Chloride 50 ml @ 100 mls/hr Q6HRS 02/21/21 09:00 02/24/21 10:07 DC 02/23/21 13:10 100 MLS/HR Potassium Phosphate 15 mmol/ Sodium Chloride 105 ml @ 52.5 mls/hr 1X ONCE 02/16/21 15:00 02/16/21 16:59 DC 02/16/21 15:43 52.5 MLS/HR Potassium Phosphate 30 mmol/ Multivitamins 10 ml/Zinc/Copper/ Manganese/ Selenium 1 ml/ Total Parenteral Nutrition/Amino Acids/Dextrose/ Fat Emulsion Intravenous 1,440 ml @ 60 mls/hr TPN CONT 02/22/21 22:00 02/23/21 21:59 DC Potassium Chloride (Klor-Con) 40 meq 1X ONCE 02/25/21 15:30 02/25/21 15:31 DC Prednisone (Prednisone) 20 mg DAILY 02/24/21 15:30 02/25/21 09:17 20 MG Prochlorperazine Edisylate (Compazine) 5 mg PACU PRN PRN 02/13/21 06:00 02/13/21 21:00 DC Propofol (Diprivan) 200 mg STK-MED ONCE 02/13/21 09:36 02/13/21 09:36 DC Ringer's Solution 1,000 ml @ 30 mls/hr Q24H 02/13/21 06:00 02/13/21 18:00 DC Rocuronium Industry (Zemuron) 50 mg STK-MED ONCE 02/13/21 13:53 02/13/21 13:54 DC Sodium Acetate 90 meq/Sodium Phosphate 20 mmol/ Potassium Chloride 30 meq/ Potassium Phosphate 20 mmol/ Multivitamins 10 ml/Zinc/Copper/ Manganese/ Selenium 1 ml/ Total Parenteral Nutrition/Amino Acids/Dextrose/ Fat Emulsion Intravenous 1,080 ml @ 45 mls/hr TPN CONT 02/18/21 22:00 02/19/21 21:59 DC 02/18/21 21:35 45 MLS/HR Sodium Chloride (Normal Saline Flush) 3 ml QSHIFT PRN 02/13/21 17:15 Sodium Chloride 90 meq/Potassium Chloride 50 meq/ Potassium Phosphate 20 mmol/ Magnesium Sulfate 10 meq/Calcium Gluconate 10 meq/ Multivitamins 10 ml/Zinc/Copper/ Manganese/ Selenium 1 ml/ Total Parenteral Nutrition/Amino Acids/Dextrose/ Fat Emulsion Intravenous 1,296 ml @ 54 mls/hr TPN CONT 02/16/21 22:00 02/17/21 21:59 DC 02/16/21 21:24 54 MLS/HR Sodium Chloride 90 meq/Sodium Phosphate 10 mmol/ Potassium Chloride 50 meq/ Potassium Phosphate 20 mmol/ Magnesium Sulfate 5 meq/ Multivitamins 10 ml/Zinc/Copper/ Manganese/ Selenium 1 ml/ Total Parenteral Nutrition/Amino Acids/Dextrose/ Fat Emulsion Intravenous 1,080 ml @ 45 mls/hr TPN CONT 02/17/21 22:00 02/18/21 21:59 DC 02/17/21 21:12 45 MLS/HR Sodium Phosphate 15 mmol/Sodium Chloride 105 ml @ 105 mls/hr 1X ONCE 02/18/21 10:00 02/18/21 10:59 DC 02/18/21 09:20 105 MLS/HR Sodium Phosphate 20 mmol/Potassium Phosphate 20 mmol/ Multivitamins 10 ml/Zinc/Copper/ Manganese/ Selenium 1 ml/ Total Parenteral Nutrition/Amino Acids/Dextrose/ Fat Emulsion Intravenous 1,320 ml @ 55 mls/hr TPN CONT 02/21/21 22:00 02/22/21 21:59 DC Sodium Phosphate 20 mmol/Sodium Chloride 256.6667 ml @ 64.167 m... 1X ONCE 02/17/21 09:15 02/17/21 13:14 UNV Sodium Phosphate 40 mmol/ Multivitamins 10 ml/Zinc/Copper/ Manganese/ Selenium 1 ml/ Total Parenteral Nutrition/Amino Acids/Dextrose/ Fat Emulsion Intravenous 1,080 ml @ 45 mls/hr TPN CONT 02/20/21 22:00 02/21/21 12:43 DC 02/20/21 22:45 45 MLS/HR Succinylcholine Chloride (Anectine) 200 mg STK-MED ONCE 02/13/21 09:38 02/13/21 09:38 DC Throat Lozenges (Cepacol Sore Throat Lozenge) 1 macario PRN Q2HRS PRN 02/24/21 14:45 02/25/21 09:25 1 MACARIO Vancomycin HCl (Vanco Per Pharmacy) 1 each PRN DAILY PRN 02/15/21 21:30 02/16/21 11:17 DC 02/16/21 03:40 1 EACH Vancomycin HCl (Vancomycin Trough Level) 1 each 1X ONCE 02/17/21 22:30 02/16/21 11:17 DC Vancomycin HCl 1.75 gm/Sodium Chloride 500 ml @ 250 mls/hr 1X ONCE 02/15/21 22:00 02/15/21 23:59 DC 02/15/21 23:00 250 MLS/HR Vancomycin HCl 1 gm/Sodium Chloride 250 ml @ 250 mls/hr Q24H 02/16/21 23:00 02/16/21 11:16 DC Lab Laboratory Tests Test 02/24/21 16:45 02/24/21 21:11 02/25/21 07:42 02/25/21 11:46 Glucose (Fingerstick) 202 mg/dL (70-99) 158 mg/dL (70-99) 138 mg/dL (70-99) 158 mg/dL (70-99) Test 02/25/21 13:00 White Blood Count 21.4 x10^3/uL (4.0-11.0) Red Blood Count 2.89 x10^6/uL (3.50-5.40) Hemoglobin 8.3 g/dL (12.0-15.5) Hematocrit 26.5 % (36.0-47.0) Mean Corpuscular Volume 92 fL (79-100) Mean Corpuscular Hemoglobin 29 pg (25-35) Mean Corpuscular Hemoglobin Concent 31 g/dL (31-37) Red Cell Distribution Width 16.5 % (11.5-14.5) Platelet Count 164 x10^3/uL (140-400) Neutrophils (%) (Auto) 92 % (31-73) Lymphocytes (%) (Auto) 2 % (24-48) Monocytes (%) (Auto) 6 % (0-9) Eosinophils (%) (Auto) 0 % (0-3) Basophils (%) (Auto) 0 % (0-3) Neutrophils # (Auto) 19.7 x10^3/uL (1.8-7.7) Lymphocytes # (Auto) 0.4 x10^3/uL (1.0-4.8) Monocytes # (Auto) 1.2 x10^3/uL (0.0-1.1) Eosinophils # (Auto) 0.0 x10^3/uL (0.0-0.7) Basophils # (Auto) 0.0 x10^3/uL (0.0-0.2) Sodium Level 159 mmol/L (136-145) Potassium Level 3.4 mmol/L (3.5-5.1) Chloride Level 120 mmol/L (98-107) Carbon Dioxide Level 30 mmol/L (21-32) Anion Gap 9 (6-14) Blood Urea Nitrogen 35 mg/dL (7-20) Creatinine 0.8 mg/dL (0.6-1.0) Estimated GFR (Cockcroft-Gault) 69.6 BUN/Creatinine Ratio 44 (6-20) Glucose Level 226 mg/dL (70-99) Calcium Level 7.2 mg/dL (8.5-10.1) Total Bilirubin 0.6 mg/dL (0.2-1.0) Aspartate Amino Transf (AST/SGOT) 26 U/L (15-37) Alanine Aminotransferase (ALT/SGPT) 78 U/L (14-59) Alkaline Phosphatase 83 U/L (46-116) Total Protein 5.3 g/dL (6.4-8.2) Albumin 2.0 g/dL (3.4-5.0) Albumin/Globulin Ratio 0.6 (1.0-1.7) Results All relevant outside records, renal labs, imaging studies, telemetry/EKG's were reviewed. Justicifation of Admission Dx: Justifications for Admission: Justification of Admission Dx: Yes ARMINDA LYMAN MD Feb 25, 2021 16:26
--- NOTE | 2021-02-25 17:00 | NUR ---
Nursing [employer] notified several times throughout the day that [facility] has not been in to fix/replace pt's PICC line.
[2021-02-25] MEDS: ENOXAPARIN 40 MG/0.4 ML SYRINGE. SQ SCH (17:12)
[2021-02-25 19:30] VITALS: BP 159/70
[2021-02-25] MEDS: INSULIN GLARGINE SYRINGE. SQ SCH (23:07)
[2021-02-25 23:35] VITALS: BP 179/76
[2021-02-25] MEDS: oxyCODONE/APAP 5/325 1 TAB TABLET PO PRN (23:42)
[2021-02-26] MEDS: IV DEXTROSE 5% 1,000 ML IV SCH ×5 (02:55→21:51)
[2021-02-26 03:30] VITALS: BP 153/68
[2021-02-26] MEDS: NITROGLYCERIN OINT 1 GM PACKET. TP SCH ×4 (06:43→23:54)
[2021-02-26 07:00] VITALS: BP 149/66
[2021-02-26] MEDS: INSULIN LISPRO 300 UNITS/3 ML VIAL. SQ SCH ×4 (07:30→21:46)
[2021-02-26] MEDS: IPRATROPIUM BROMIDE 0.5 MG/2.5 ML NEBU. NEB SCH ×4 (07:33→20:51)
[2021-02-26] MEDS: BUDESONIDE 0.5 MG/2 ML NEBU. NEB SCH ×2 (07:33→20:51)
[2021-02-26] MEDS: LISINOPRIL 20 MG TABLET PO SCH (08:31)
[2021-02-26] MEDS: AMOXICILLIN/K CLAV 875/125MG TABLET. PO SCH ×2 (08:31→21:45)
[2021-02-26] MEDS: predniSONE 20 MG TABLET PO SCH (08:32)
[2021-02-26] MEDS: FAMOTIDINE 20 MG TABLET. PO SCH ×2 (08:32→21:46)
[2021-02-26] MEDS: LACTOBACILLUS RHAMNOSUS GG 1 CAPSULE. PO SCH ×2 (08:32→21:46)
--- NOTE | 2021-02-26 08:37 | PDOC ---
Infectious Disease Note Subjective: Subjective Patient tolerating p.o. intake well Denies any complaints Afebrile at bedside Vital Signs: Vital Signs Vital Signs Date Time Temp Pulse Resp B/P (MAP) Pulse Ox O2 Delivery O2 Flow Rate FiO2 02/26/21 07:33 96 Nasal Cannula 3.0 02/26/21 07:00 97.6 87 20 149/66 (93) 97.6 Physical Exam: PHYSICAL EXAM GENERAL: Sleepy but arousable HEENT: Normocephalic, atraumatic. Anicteric. Dry mouth NECK: Supple. No JVD. LUNGS: Rales present + for wheezing HEART: Irregularly irregular no murmurs appreciated ABDOMEN: Obese , distended binder in place, not taken down, intact dry Hypoactive bowel sounds [address] EXTREMITIES mild edema present, no cyanosis MUSCULOSKELETAL: No joint swelling. No decrease in range of motion. CENTRAL NERVOUS SYSTEM: Sleepy, arousable PSYCHIATRIC: Cooperative, sleepy PICC line clean Medications: Inpatient Meds: Medications reviewed. Labs: Lab Laboratory Tests Test 02/25/21 11:46 02/25/21 13:00 02/25/21 16:57 02/25/21 21:30 Glucose (Fingerstick) 158 mg/dL (70-99) 199 mg/dL (70-99) 155 mg/dL (70-99) White Blood Count 21.4 x10^3/uL (4.0-11.0) Red Blood Count 2.89 x10^6/uL (3.50-5.40) Hemoglobin 8.3 g/dL (12.0-15.5) Hematocrit 26.5 % (36.0-47.0) Mean Corpuscular Volume 92 fL (79-100) Mean Corpuscular Hemoglobin 29 pg (25-35) Mean Corpuscular Hemoglobin Concent 31 g/dL (31-37) Red Cell Distribution Width 16.5 % (11.5-14.5) Platelet Count 164 x10^3/uL (140-400) Neutrophils (%) (Auto) 92 % (31-73) Lymphocytes (%) (Auto) 2 % (24-48) Monocytes (%) (Auto) 6 % (0-9) Eosinophils (%) (Auto) 0 % (0-3) Basophils (%) (Auto) 0 % (0-3) Neutrophils # (Auto) 19.7 x10^3/uL (1.8-7.7) Lymphocytes # (Auto) 0.4 x10^3/uL (1.0-4.8) Monocytes # (Auto) 1.2 x10^3/uL (0.0-1.1) Eosinophils # (Auto) 0.0 x10^3/uL (0.0-0.7) Basophils # (Auto) 0.0 x10^3/uL (0.0-0.2) Sodium Level 159 mmol/L (136-145) Potassium Level 3.4 mmol/L (3.5-5.1) Chloride Level 120 mmol/L (98-107) Carbon Dioxide Level 30 mmol/L (21-32) Anion Gap 9 (6-14) Blood Urea Nitrogen 35 mg/dL (7-20) Creatinine 0.8 mg/dL (0.6-1.0) Estimated GFR (Cockcroft-Gault) 69.6 BUN/Creatinine Ratio 44 (6-20) Glucose Level 226 mg/dL (70-99) Calcium Level 7.2 mg/dL (8.5-10.1) Total Bilirubin 0.6 mg/dL (0.2-1.0) Aspartate Amino Transf (AST/SGOT) 26 U/L (15-37) Alanine Aminotransferase (ALT/SGPT) 78 U/L (14-59) Alkaline Phosphatase 83 U/L (46-116) Total Protein 5.3 g/dL (6.4-8.2) Albumin 2.0 g/dL (3.4-5.0) Albumin/Globulin Ratio 0.6 (1.0-1.7) Test 02/26/21 07:27 Glucose (Fingerstick) 108 mg/dL (70-99) Objective: Assessment: Status post large ventral hernia repair on February 12, 2021 Possible ileus Encephalopathy appears metabolic improved Leukocytosis on steroids Febrile illness resolved Anemia A. fib with RVR CHF Renal insufficiency Rheumatoid arthritis Depression History of breast cancer Hypertension Hyperkalemia Plan: Plan of Care DC Augmentin , Pt does not need [place] [facility] picc line from ID standpoint, explained to patient and at bedside DC if not needed per primary care Leukocytosis also on steroids General surgery following Continue local wound care/drain management as directed Continue aspiration precautions Check C. difficile PCR if diarrhea recurs Will sign off Discussed with at bedside MELINDA MONTEMAYOR MD Feb 26, 2021 08:37
--- NOTE | 2021-02-26 09:22 | PDOC ---
PULMONARY PROGRESS NOTES DATE: 02/26/21 TIME: 09:22 Subjective Patient is with no new respiratory complaint Vitals Vital Signs Date Time Temp Pulse Resp B/P (MAP) Pulse Ox O2 Delivery O2 Flow Rate FiO2 02/26/21 08:31 87 149/66 02/26/21 07:33 96 Nasal Cannula 3.0 02/26/21 07:00 97.6 20 97.6 Comments ros as mentioned above other sys otherwise neg General: Alert, No acute distress Lungs: Clear Cardiovascular: S1 Abdomen: Soft, Other (Tender in the lower quadrants) Skin: Warm Labs Laboratory Tests Test 02/24/21 11:15 02/24/21 11:21 02/24/21 16:45 02/24/21 21:11 Sodium Level 157 mmol/L (136-145) Potassium Level 3.1 mmol/L (3.5-5.1) Chloride Level 120 mmol/L (98-107) Carbon Dioxide Level 28 mmol/L (21-32) Anion Gap 9 (6-14) Blood Urea Nitrogen 39 mg/dL (7-20) Creatinine 0.8 mg/dL (0.6-1.0) Estimated GFR (Cockcroft-Gault) 69.6 Glucose Level 204 mg/dL (70-99) Calcium Level 7.1 mg/dL (8.5-10.1) Glucose (Fingerstick) 164 mg/dL (70-99) 202 mg/dL (70-99) 158 mg/dL (70-99) Test 02/25/21 07:42 02/25/21 11:46 02/25/21 13:00 02/25/21 16:57 Glucose (Fingerstick) 138 mg/dL (70-99) 158 mg/dL (70-99) 199 mg/dL (70-99) White Blood Count 21.4 x10^3/uL (4.0-11.0) Red Blood Count 2.89 x10^6/uL (3.50-5.40) Hemoglobin 8.3 g/dL (12.0-15.5) Hematocrit 26.5 % (36.0-47.0) Mean Corpuscular Volume 92 fL (79-100) Mean Corpuscular Hemoglobin 29 pg (25-35) Mean Corpuscular Hemoglobin Concent 31 g/dL (31-37) Red Cell Distribution Width 16.5 % (11.5-14.5) Platelet Count 164 x10^3/uL (140-400) Neutrophils (%) (Auto) 92 % (31-73) Lymphocytes (%) (Auto) 2 % (24-48) Monocytes (%) (Auto) 6 % (0-9) Eosinophils (%) (Auto) 0 % (0-3) Basophils (%) (Auto) 0 % (0-3) Neutrophils # (Auto) 19.7 x10^3/uL (1.8-7.7) Lymphocytes # (Auto) 0.4 x10^3/uL (1.0-4.8) Monocytes # (Auto) 1.2 x10^3/uL (0.0-1.1) Eosinophils # (Auto) 0.0 x10^3/uL (0.0-0.7) Basophils # (Auto) 0.0 x10^3/uL (0.0-0.2) Sodium Level 159 mmol/L (136-145) Potassium Level 3.4 mmol/L (3.5-5.1) Chloride Level 120 mmol/L (98-107) Carbon Dioxide Level 30 mmol/L (21-32) Anion Gap 9 (6-14) Blood Urea Nitrogen 35 mg/dL (7-20) Creatinine 0.8 mg/dL (0.6-1.0) Estimated GFR (Cockcroft-Gault) 69.6 BUN/Creatinine Ratio 44 (6-20) Glucose Level 226 mg/dL (70-99) Calcium Level 7.2 mg/dL (8.5-10.1) Total Bilirubin 0.6 mg/dL (0.2-1.0) Aspartate Amino Transf (AST/SGOT) 26 U/L (15-37) Alanine Aminotransferase (ALT/SGPT) 78 U/L (14-59) Alkaline Phosphatase 83 U/L (46-116) Total Protein 5.3 g/dL (6.4-8.2) Albumin 2.0 g/dL (3.4-5.0) Albumin/Globulin Ratio 0.6 (1.0-1.7) Test 02/25/21 21:30 02/26/21 07:27 Glucose (Fingerstick) 155 mg/dL (70-99) 108 mg/dL (70-99) Laboratory Tests Test 02/25/21 11:46 02/25/21 13:00 02/25/21 16:57 02/25/21 21:30 Glucose (Fingerstick) 158 mg/dL (70-99) 199 mg/dL (70-99) 155 mg/dL (70-99) White Blood Count 21.4 x10^3/uL (4.0-11.0) Red Blood Count 2.89 x10^6/uL (3.50-5.40) Hemoglobin 8.3 g/dL (12.0-15.5) Hematocrit 26.5 % (36.0-47.0) Mean Corpuscular Volume 92 fL (79-100) Mean Corpuscular Hemoglobin 29 pg (25-35) Mean Corpuscular Hemoglobin Concent 31 g/dL (31-37) Red Cell Distribution Width 16.5 % (11.5-14.5) Platelet Count 164 x10^3/uL (140-400) Neutrophils (%) (Auto) 92 % (31-73) Lymphocytes (%) (Auto) 2 % (24-48) Monocytes (%) (Auto) 6 % (0-9) Eosinophils (%) (Auto) 0 % (0-3) Basophils (%) (Auto) 0 % (0-3) Neutrophils # (Auto) 19.7 x10^3/uL (1.8-7.7) Lymphocytes # (Auto) 0.4 x10^3/uL (1.0-4.8) Monocytes # (Auto) 1.2 x10^3/uL (0.0-1.1) Eosinophils # (Auto) 0.0 x10^3/uL (0.0-0.7) Basophils # (Auto) 0.0 x10^3/uL (0.0-0.2) Sodium Level 159 mmol/L (136-145) Potassium Level 3.4 mmol/L (3.5-5.1) Chloride Level 120 mmol/L (98-107) Carbon Dioxide Level 30 mmol/L (21-32) Anion Gap 9 (6-14) Blood Urea Nitrogen 35 mg/dL (7-20) Creatinine 0.8 mg/dL (0.6-1.0) Estimated GFR (Cockcroft-Gault) 69.6 BUN/Creatinine Ratio 44 (6-20) Glucose Level 226 mg/dL (70-99) Calcium Level 7.2 mg/dL (8.5-10.1) Total Bilirubin 0.6 mg/dL (0.2-1.0) Aspartate Amino Transf (AST/SGOT) 26 U/L (15-37) Alanine Aminotransferase (ALT/SGPT) 78 U/L (14-59) Alkaline Phosphatase 83 U/L (46-116) Total Protein 5.3 g/dL (6.4-8.2) Albumin 2.0 g/dL (3.4-5.0) Albumin/Globulin Ratio 0.6 (1.0-1.7) Test 02/26/21 07:27 Glucose (Fingerstick) 108 mg/dL (70-99) Medications Active Scripts Medications Dose Route/Sig Max Daily Dose Days Date Category Vitamin B12 (Cyanocobalamin (Vitamin B-12)) 2,500 Mcg Tablet 500 Mg PO BID 02/15/21 Reported Nexium Capsule (Esomeprazole Magnesium) 40 Mg Capsule.dr Ruiz Cap PO BID 02/15/21 Reported Calcium 600 + Vit D 800 Tab (Calcium Carbonate/Vitamin D3) 1 Each Tablet 1 Tab PO BID 30 02/15/21 Reported Benefiber (Wheat Dextrin) 1 Each Powd.pack 1 Each PO DAILY 02/15/21 Reported Lisinopril 10 Mg Tablet 1 Tab PO DAILY 02/15/21 Reported Leflunomide 10 Mg Tablet 10 Mg PO DAILY 02/15/21 Reported Prednisone 2.5 Mg Tablet 5 Mg PO DAILY 02/15/21 Reported Metoprolol Tartrate 25 Mg Tablet 1 Tab PO DAILY 02/15/21 Reported Hydrocodone-Apap 5-325 (Hydrocodone Bit/Acetaminophen) 1 Tab Tablet 1 Tab PO PRN BID PRN 02/15/21 Reported Gabapentin 100 Mg Capsule 100 Mg PO PRN BID PRN 02/15/21 Reported Folic Acid 0.8 Mg Tablet 3 Mg PO DAILY 02/15/21 Reported Cymbalta (Duloxetine Hcl) 30 Mg Capsule.dr Ruiz Cap PO DAILY 02/15/21 Reported Prolia (Denosumab) 60 Mg/1 Ml Disp.syrin 1 Syr SQ [id number] 1 02/15/21 Reported Celexa (Citalopram Hydrobromide) 10 Mg Tablet 1 Tab PO DAILY 02/15/21 Reported Alprazolam 0.25 Mg Tablet 0.25 Mg PO PRN DAILY PRN 02/15/21 Reported Impression . IMPRESSION: 1. Acute hypoxemic respiratory failure, multifactorial. 2. Abnormal x-ray, compatible with effusion, possibly congestive heart failure. Possible pneumonia. She does have underlying interstitial lung disease likely related to rheumatoid arthritis. 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 A. fib with rapid ventricular response, controlled 4. Leukocytosis. 5. Fever. resolved 6. Status post large ventral hernia repair on 02/13. 7. Rheumatoid arthritis with previously diagnosed as interstitial lung disease. 8. Hypertension. 9. Breast cancer, status post radiation. 10. Tobacco dependence, in remission. 11. Chronic obstructive pulmonary disease, unknown FEV1 12. Multifactorial encephalopathy/delirium/toxic encephalopathy, initially contributed by Dilaudid., 13. Hyponatremia, may also be contributing to encephalopathy. Plan . Updated 02/26 continue oxygen supplementation Avoid narcotics Antibiotics per ID Discussed with RN Discussed with patient's and RN minimize the narcotics as much as possible. Patient being followed by nephrology regarding hyponatremia. This may be contributing to patient's confusion. Level trending down. repeat cxr reviewed. There is improving right upper lobe interstitial infiltrate. Antibiotics per ID off lasix taper off steroids quickly. Now baseline dose for rheumatoid arthritis Cardiology recommendations for A. fib. Nephrology rec for hypernatremia Discussed with at the bedside in detail. I explained to him that from a pulmonary standpoint she is stable. Her right upper lobe infiltrate on a recent chest x-ray is improving as well. ASHLY PRADHAN MD Feb 26, 2021 09:22
[2021-02-26 10:10] LABS: BASO % 0 % (0-3); EOS # 0.2 x10^3/uL (0.0-0.7); EOS % 1 % (0-3); HEMATOCRIT 23.8 % (36.0-47.0); HEMOGLOBIN 7.4 g/dL (12.0-15.5); LYMPH # 0.8 x10^3/uL (1.0-4.8); LYMPH % 4 % (24-48); MEAN CORPUSCULAR HEMOGLOBIN 29 pg (25-35); MEAN CORPUSCULAR HGB CONC 31 g/dL (31-37); MEAN CORPUSCULAR VOLUME 95 fL (79-100); MONO # 1.1 x10^3/uL (0.0-1.1); MONO % 6 % (0-9); NEUT # 16.4 x10^3/uL (1.8-7.7); NEUT % 89 % (31-73); PLATELET COUNT 134 x10^3/uL (140-400); RED BLOOD COUNT 2.51 x10^6/uL (3.50-5.40); RED CELL DISTRIBUTION WIDTH 16.8 % (11.5-14.5); WHITE BLOOD COUNT 18.5 x10^3/uL (4.0-11.0)
[2021-02-26 10:21] LABS: ALBUMIN 1.9 g/dL (3.4-5.0); ALBUMIN/GLOBULIN RATIO 0.7 (1.0-1.7); CALCIUM 7.5 mg/dL (8.5-10.1); CREATININE 0.8 mg/dL (0.6-1.0); GFR 69.6; POTASSIUM 4.7 mmol/L (3.5-5.1); TOTAL BILIRUBIN 0.5 mg/dL (0.2-1.0); TOTAL PROTEIN 4.8 g/dL (6.4-8.2)
--- NOTE | 2021-02-26 10:40 | PDOC ---
DATE OF SERVICE DATE: 02/26/21 TIME: 10:40 SUBJECTIVE ROS Stable , No SOB at rest No N/V OBJECTIVE Vital Signs Vital Signs Date Time Temp Pulse Resp B/P (MAP) Pulse Ox O2 Delivery O2 Flow Rate FiO2 02/26/21 08:31 87 149/66 02/26/21 07:33 96 Nasal Cannula 3.0 02/26/21 07:00 97.6 20 97.6 I & 0 Intake and Output 02/26/21 07:00 Intake Total 680 ml Output Total 825 ml Balance -145 ml Intake Oral 680 ml Output Urine Total 800 ml Drainage Total 25 ml # Bowel Movements 2 PHYSICAL EXAM Physical Exam GENERALNAD HEENT: Normocephalic, atraumatic. Anicteric. OM dry NECK: Supple. LUNGS: Decreased at bases, Non labored ABD Soft, drains serosang, dressing to incision EXT Mild LE edema , swelling + hands HEART: S1S2 NEURO : grossly nonfocal. Generalized weakness Barraza in place , No CVA or SP tenderness DIAGNOSIS/ASSESSMENT Assessment & Plan Hyper Natremia- suspect 2/2 Overdiuresis , NPO . Na Improved from 162->157 with D5W . No IV access since Friday night, did not receive IVF (Hypotonic D5W as ordered) since , Na up tp 162 today Continue IV D5W as ordered on 02/23- Discussed with nursing Friday/Friday . She has IV access . Blood glucose monitoring and management per primary . Repeat Na at 1500 and please call with results. Mir RN HyperKalemia - Resolved K ,Monitor MARILEE at presentation- Cr 1.3 resolved .BUN in 60's stable, likely sec to steroids UOP improved Anemia- slow decreasing Hgb, defer to primary Acute hypoxemic respiratory failure, multifactorial- Abnormal x-ray A. fib with rapid ventricular response Status post large ventral hernia repair on 02/13. awaiting return of bowel function, still NPO . GS following Hypertension BP high COMMENT/RELEVANT DATA Meds Current Medications Medications (Trade) Dose Ordered Sig/Isael Start Time Stop Time Status Last Admin Dose Admin Acetaminophen (Tylenol) 650 mg PRN Q6HRS PRN 02/24/21 14:45 02/24/21 16:06 650 MG Albuterol Sulfate (Ventolin Neb Soln) 2.5 mg PRN Q4HRS PRN 02/18/21 06:45 02/25/21 04:38 2.5 MG Amoxicillin/ Clavulanate Potassium (Augmentin 875/ 125mg) 1 tab BID 02/24/21 11:30 02/26/21 08:31 1 TAB Budesonide (Pulmicort) 0.5 mg RTBID 02/18/21 20:00 02/26/21 07:33 0.5 MG Cefazolin Sodium (Ancef) 1 gm 1X PREOP PRN 02/13/21 10:00 02/13/21 15:08 DC Cefazolin Sodium/ Dextrose 0 ml @ As Directed STK-MED ONCE 02/13/21 09:45 02/13/21 09:45 DC Cefepime HCl (Maxipime) 2 gm Q12HR 02/16/21 12:00 02/20/21 08:33 DC 02/19/21 21:02 2 GM Dexamethasone Sodium Phosphate (Decadron) 4 mg STK-MED ONCE 02/13/21 09:36 02/13/21 09:36 DC Dextrose 1,000 ml @ 150 mls/hr Q6H40M 02/21/21 12:45 02/23/21 14:00 150 MLS/HR Dextrose (Dextrose 50%-Water Syringe) 12.5 gm PRN Q15MIN PRN 02/18/21 12:00 Digoxin (Lanoxin) 500 mcg 1X ONCE 02/19/21 14:45 02/19/21 14:46 DC 02/19/21 15:15 500 MCG Diltiazem HCl (Cardizem 24hr Cd) 240 mg DAILY 02/24/21 09:00 02/26/21 08:31 240 MG Diltiazem HCl 125 mg/Sodium Chloride 125 ml @ 5 mls/hr CONT PRN 02/15/21 21:30 02/23/21 12:24 DC 02/23/21 01:59 10 MLS/HR Enalaprilat (Vasotec Inj) 1.25 mg Q6HRS 02/22/21 12:00 02/23/21 12:24 DC 02/23/21 06:28 1.25 MG Enoxaparin Sodium (Lovenox 40mg Syringe) 40 mg Q24H 02/13/21 18:00 02/25/21 17:12 40 MG Epinephrine (S2 Racepinephrine) 0.5 ml 1X ONCE 02/17/21 14:15 02/17/21 14:16 DC 02/17/21 15:29 0.5 ML Famotidine (Pepcid Vial) 20 mg QHS 02/19/21 21:00 02/24/21 14:34 DC 02/22/21 21:15 20 MG Famotidine (Pepcid) 20 mg BID 02/24/21 21:00 02/26/21 08:32 20 MG Fentanyl Citrate (Fentanyl 2ml Vial) 25 mcg PRN Q2HRS PRN 02/21/21 10:15 Furosemide (Lasix) 40 mg DAILY 02/19/21 11:45 02/21/21 12:57 DC 02/21/21 08:37 40 MG Glycopyrrolate (Robinul) 1 mg STK-MED ONCE 02/13/21 16:33 02/13/21 16:33 DC Hydralazine HCl (Apresoline Inj) 10 mg 1X ONCE 02/21/21 14:15 02/21/21 17:30 DC 02/21/21 14:43 10 MG Hydromorphone HCl (Dilaudid) 0.2 mg PRN Q4HRS PRN 02/20/21 08:30 02/20/21 09:05 DC Info (FLU VACCINE SCREEN per RX) 1 each PRN DAILY PRN 02/14/21 23:30 Cancel Info (Tpn Per Pharmacy) 1 each PRN DAILY PRN 02/22/21 13:30 02/23/21 12:26 DC 02/22/21 15:04 1 EACH Insulin Glargine (Lantus Syringe) 8 unit QHS 02/20/21 21:00 02/25/21 23:07 8 UNIT Insulin Human Lispro (HumaLOG) 0-7 UNITS QIDACHS 02/23/21 17:15 02/25/21 17:25 2 UNITS Ipratropium Thor (Atrovent) 0.5 mg RTQID 02/16/21 08:00 02/26/21 07:33 0.5 MG Ketorolac Tromethamine (Toradol 15mg Vial) 15 mg 1X ONCE 02/14/21 09:15 02/14/21 09:19 DC 02/14/21 09:33 15 MG Labetalol HCl (Normodyne Iv Push) 20 mg PRN Q2HR PRN 02/21/21 12:15 Lactobacillus Rhamnosus (Culturelle) 1 cap BID 02/24/21 21:00 02/26/21 08:32 1 CAP Lidocaine HCl (Lidocaine Pf 2% Vial) 5 ml STK-MED ONCE 02/13/21 09:36 02/13/21 09:36 DC Linezolid/Dextrose 300 ml @ 300 mls/hr Q12HR 02/16/21 12:00 02/19/21 10:34 DC 02/19/21 09:22 300 MLS/HR Lisinopril (Prinivil) 20 mg DAILY 02/23/21 12:30 02/26/21 08:31 20 MG Lorazepam (Ativan Inj) 1 mg PRN Q4HRS PRN 02/17/21 11:15 02/18/21 14:43 DC 02/18/21 14:31 1 MG Methylprednisolone Sodium Succinate (SOLU-Medrol 40MG VIAL) 60 mg Q8HRS 02/20/21 14:00 02/23/21 12:23 DC 02/23/21 06:31 60 MG Methylprednisolone Sodium Succinate (SOLU-Medrol 125MG VIAL) 60 mg DAILY 02/24/21 09:00 02/24/21 14:34 DC Metoprolol Tartrate (Lopressor Vial) 5 mg Q6HRS 02/19/21 18:00 02/23/21 13:54 DC 02/23/21 06:27 5 MG Metronidazole 100 ml @ 100 mls/hr Q12HR 02/15/21 22:00 02/19/21 10:34 DC 02/19/21 09:21 100 MLS/HR Morphine Sulfate (Morphine Sulfate) 1 mg 1X ONCE 02/17/21 11:15 02/17/21 11:16 DC 02/17/21 11:20 1 MG Naloxone HCl (Narcan) 0.4 mg PRN Q2MIN PRN 02/13/21 17:15 02/19/21 08:26 0.4 MG Neostigmine Thor (Neostigmine Methylsulfate) 5 mg STK-MED ONCE 02/13/21 16:33 02/13/21 16:33 DC Nitroglycerin (Nitro-Bid Oint) 1 inch Q6HRS 02/20/21 13:00 02/26/21 06:43 1 INCH Ondansetron HCl (Zofran) 4 mg PRN Q6HRS PRN 02/13/21 17:15 02/22/21 15:32 4 MG Oxycodone/ Acetaminophen (Percocet 5/325) 1 tab PRN Q6HRS PRN 02/25/21 10:30 02/25/21 23:42 1 TAB Phenol (Chloraseptic) 1 spray PRN Q2HR PRN 02/25/21 09:00 02/25/21 09:30 1 SPRAY Piperacillin Sod/ Tazobactam Sod 3.375 gm/Sodium Chloride 50 ml @ 100 mls/hr Q6HRS 02/21/21 09:00 02/24/21 10:07 DC 02/23/21 13:10 100 MLS/HR Potassium Phosphate 15 mmol/ Sodium Chloride 105 ml @ 52.5 mls/hr 1X ONCE 02/16/21 15:00 02/16/21 16:59 DC 02/16/21 15:43 52.5 MLS/HR Potassium Phosphate 30 mmol/ Multivitamins 10 ml/Zinc/Copper/ Manganese/ Selenium 1 ml/ Total Parenteral Nutrition/Amino Acids/Dextrose/ Fat Emulsion Intravenous 1,440 ml @ 60 mls/hr TPN CONT 02/22/21 22:00 02/23/21 21:59 DC Potassium Chloride (Klor-Con) 40 meq 1X ONCE 02/25/21 15:30 02/25/21 15:31 DC 02/25/21 16:54 40 MEQ Prednisone (Prednisone) 20 mg DAILY 02/24/21 15:30 02/26/21 08:32 20 MG Prochlorperazine Edisylate (Compazine) 5 mg PACU PRN PRN 02/13/21 06:00 02/13/21 21:00 DC Propofol (Diprivan) 200 mg STK-MED ONCE 02/13/21 09:36 02/13/21 09:36 DC Ringer's Solution 1,000 ml @ 30 mls/hr Q24H 02/13/21 06:00 02/13/21 18:00 DC Rocuronium Thor (Zemuron) 50 mg STK-MED ONCE 02/13/21 13:53 02/13/21 13:54 DC Sodium Acetate 90 meq/Sodium Phosphate 20 mmol/ Potassium Chloride 30 meq/ Potassium Phosphate 20 mmol/ Multivitamins 10 ml/Zinc/Copper/ Manganese/ Selenium 1 ml/ Total Parenteral Nutrition/Amino Acids/Dextrose/ Fat Emulsion Intravenous 1,080 ml @ 45 mls/hr TPN CONT 02/18/21 22:00 02/19/21 21:59 DC 02/18/21 21:35 45 MLS/HR Sodium Chloride (Normal Saline Flush) 3 ml QSHIFT PRN 02/13/21 17:15 Sodium Chloride 90 meq/Potassium Chloride 50 meq/ Potassium Phosphate 20 mmol/ Magnesium Sulfate 10 meq/Calcium Gluconate 10 meq/ Multivitamins 10 ml/Zinc/Copper/ Manganese/ Selenium 1 ml/ Total Parenteral Nutrition/Amino Acids/Dextrose/ Fat Emulsion Intravenous 1,296 ml @ 54 mls/hr TPN CONT 02/16/21 22:00 02/17/21 21:59 DC 02/16/21 21:24 54 MLS/HR Sodium Chloride 90 meq/Sodium Phosphate 10 mmol/ Potassium Chloride 50 meq/ Potassium Phosphate 20 mmol/ Magnesium Sulfate 5 meq/ Multivitamins 10 ml/Zinc/Copper/ Manganese/ Selenium 1 ml/ Total Parenteral Nutrition/Amino Acids/Dextrose/ Fat Emulsion Intravenous 1,080 ml @ 45 mls/hr TPN CONT 02/17/21 22:00 02/18/21 21:59 DC 02/17/21 21:12 45 MLS/HR Sodium Phosphate 15 mmol/Sodium Chloride 105 ml @ 105 mls/hr 1X ONCE 02/18/21 10:00 02/18/21 10:59 DC 02/18/21 09:20 105 MLS/HR Sodium Phosphate 20 mmol/Potassium Phosphate 20 mmol/ Multivitamins 10 ml/Zinc/Copper/ Manganese/ Selenium 1 ml/ Total Parenteral Nutrition/Amino Acids/Dextrose/ Fat Emulsion Intravenous 1,320 ml @ 55 mls/hr TPN CONT 02/21/21 22:00 02/22/21 21:59 DC Sodium Phosphate 20 mmol/Sodium Chloride 256.6667 ml @ 64.167 m... 1X ONCE 02/17/21 09:15 02/17/21 13:14 UNV Sodium Phosphate 40 mmol/ Multivitamins 10 ml/Zinc/Copper/ Manganese/ Selenium 1 ml/ Total Parenteral Nutrition/Amino Acids/Dextrose/ Fat Emulsion Intravenous 1,080 ml @ 45 mls/hr TPN CONT 02/20/21 22:00 02/21/21 12:43 DC 02/20/21 22:45 45 MLS/HR Succinylcholine Chloride (Anectine) 200 mg STK-MED ONCE 02/13/21 09:38 02/13/21 09:38 DC Throat Lozenges (Cepacol Sore Throat Lozenge) 1 macario PRN Q2HRS PRN 02/24/21 14:45 02/25/21 09:25 1 MACARIO Vancomycin HCl (Vanco Per Pharmacy) 1 each PRN DAILY PRN 02/15/21 21:30 02/16/21 11:17 DC 02/16/21 03:40 1 EACH Vancomycin HCl (Vancomycin Trough Level) 1 each 1X ONCE 02/17/21 22:30 02/16/21 11:17 DC Vancomycin HCl 1.75 gm/Sodium Chloride 500 ml @ 250 mls/hr 1X ONCE 02/15/21 22:00 02/15/21 23:59 DC 02/15/21 23:00 250 MLS/HR Vancomycin HCl 1 gm/Sodium Chloride 250 ml @ 250 mls/hr Q24H 02/16/21 23:00 02/16/21 11:16 DC Lab Laboratory Tests Test 02/25/21 11:46 02/25/21 13:00 02/25/21 16:57 02/25/21 21:30 Glucose (Fingerstick) 158 mg/dL (70-99) 199 mg/dL (70-99) 155 mg/dL (70-99) White Blood Count 21.4 x10^3/uL (4.0-11.0) Red Blood Count 2.89 x10^6/uL (3.50-5.40) Hemoglobin 8.3 g/dL (12.0-15.5) Hematocrit 26.5 % (36.0-47.0) Mean Corpuscular Volume 92 fL (79-100) Mean Corpuscular Hemoglobin 29 pg (25-35) Mean Corpuscular Hemoglobin Concent 31 g/dL (31-37) Red Cell Distribution Width 16.5 % (11.5-14.5) Platelet Count 164 x10^3/uL (140-400) Neutrophils (%) (Auto) 92 % (31-73) Lymphocytes (%) (Auto) 2 % (24-48) Monocytes (%) (Auto) 6 % (0-9) Eosinophils (%) (Auto) 0 % (0-3) Basophils (%) (Auto) 0 % (0-3) Neutrophils # (Auto) 19.7 x10^3/uL (1.8-7.7) Lymphocytes # (Auto) 0.4 x10^3/uL (1.0-4.8) Monocytes # (Auto) 1.2 x10^3/uL (0.0-1.1) Eosinophils # (Auto) 0.0 x10^3/uL (0.0-0.7) Basophils # (Auto) 0.0 x10^3/uL (0.0-0.2) Sodium Level 159 mmol/L (136-145) Potassium Level 3.4 mmol/L (3.5-5.1) Chloride Level 120 mmol/L (98-107) Carbon Dioxide Level 30 mmol/L (21-32) Anion Gap 9 (6-14) Blood Urea Nitrogen 35 mg/dL (7-20) Creatinine 0.8 mg/dL (0.6-1.0) Estimated GFR (Cockcroft-Gault) 69.6 BUN/Creatinine Ratio 44 (6-20) Glucose Level 226 mg/dL (70-99) Calcium Level 7.2 mg/dL (8.5-10.1) Total Bilirubin 0.6 mg/dL (0.2-1.0) Aspartate Amino Transf (AST/SGOT) 26 U/L (15-37) Alanine Aminotransferase (ALT/SGPT) 78 U/L (14-59) Alkaline Phosphatase 83 U/L (46-116) Total Protein 5.3 g/dL (6.4-8.2) Albumin 2.0 g/dL (3.4-5.0) Albumin/Globulin Ratio 0.6 (1.0-1.7) Test 02/26/21 07:27 02/26/21 09:30 Glucose (Fingerstick) 108 mg/dL (70-99) White Blood Count 18.5 x10^3/uL (4.0-11.0) Red Blood Count 2.51 x10^6/uL (3.50-5.40) Hemoglobin 7.4 g/dL (12.0-15.5) Hematocrit 23.8 % (36.0-47.0) Mean Corpuscular Volume 95 fL (79-100) Mean Corpuscular Hemoglobin 29 pg (25-35) Mean Corpuscular Hemoglobin Concent 31 g/dL (31-37) Red Cell Distribution Width 16.8 % (11.5-14.5) Platelet Count 134 x10^3/uL (140-400) Neutrophils (%) (Auto) 89 % (31-73) Lymphocytes (%) (Auto) 4 % (24-48) Monocytes (%) (Auto) 6 % (0-9) Eosinophils (%) (Auto) 1 % (0-3) Basophils (%) (Auto) 0 % (0-3) Neutrophils # (Auto) 16.4 x10^3/uL (1.8-7.7) Lymphocytes # (Auto) 0.8 x10^3/uL (1.0-4.8) Monocytes # (Auto) 1.1 x10^3/uL (0.0-1.1) Eosinophils # (Auto) 0.2 x10^3/uL (0.0-0.7) Basophils # (Auto) 0.0 x10^3/uL (0.0-0.2) Sodium Level 162 mmol/L (136-145) Potassium Level 4.7 mmol/L (3.5-5.1) Chloride Level 127 mmol/L (98-107) Carbon Dioxide Level 29 mmol/L (21-32) Anion Gap 6 (6-14) Blood Urea Nitrogen 30 mg/dL (7-20) Creatinine 0.8 mg/dL (0.6-1.0) Estimated GFR (Cockcroft-Gault) 69.6 BUN/Creatinine Ratio 38 (6-20) Glucose Level 167 mg/dL (70-99) Calcium Level 7.5 mg/dL (8.5-10.1) Total Bilirubin 0.5 mg/dL (0.2-1.0) Aspartate Amino Transf (AST/SGOT) 36 U/L (15-37) Alanine Aminotransferase (ALT/SGPT) 64 U/L (14-59) Alkaline Phosphatase 77 U/L (46-116) Total Protein 4.8 g/dL (6.4-8.2) Albumin 1.9 g/dL (3.4-5.0) Albumin/Globulin Ratio 0.7 (1.0-1.7) Results All relevant outside records, renal labs, imaging studies, telemetry/EKG's were reviewed. Justicifation of Admission Dx: Justifications for Admission: Justification of Admission Dx: Yes ARMINDA LYMAN MD Feb 26, 2021 10:40
[2021-02-26 10:46] VITALS: BP 141/63
--- NOTE | 2021-02-26 12:08 | PDOC ---
CLIFFORD MERLOS SHIP'S OFFICER 02/26/21 1208: CARDIO Progress Notes Date and Time Date of Service 02/26/21 Time of Evaluation 1210 Subjective Subjective: No Chest Pain, No shortness of breath, No Palpitations Vitals Vitals Vital Signs Date Time Temp Pulse Resp B/P (MAP) Pulse Ox O2 Delivery O2 Flow Rate FiO2 02/26/21 11:26 Nasal Cannula 3.0 02/26/21 10:46 97.7 78 18 141/63 (89) 97 97.7 Weight Weight [ ] Input and Output Intake and Output Intake and Output 02/26/21 07:00 Intake Total 680 ml Output Total 825 ml Balance -145 ml Intake Oral 680 ml Output Urine Total 800 ml Drainage Total 25 ml # Bowel Movements 2 Laboratory Labs Laboratory Tests Test 02/25/21 13:00 02/25/21 16:57 02/25/21 21:30 02/26/21 07:27 White Blood Count 21.4 x10^3/uL (4.0-11.0) Red Blood Count 2.89 x10^6/uL (3.50-5.40) Hemoglobin 8.3 g/dL (12.0-15.5) Hematocrit 26.5 % (36.0-47.0) Mean Corpuscular Volume 92 fL (79-100) Mean Corpuscular Hemoglobin 29 pg (25-35) Mean Corpuscular Hemoglobin Concent 31 g/dL (31-37) Red Cell Distribution Width 16.5 % (11.5-14.5) Platelet Count 164 x10^3/uL (140-400) Neutrophils (%) (Auto) 92 % (31-73) Lymphocytes (%) (Auto) 2 % (24-48) Monocytes (%) (Auto) 6 % (0-9) Eosinophils (%) (Auto) 0 % (0-3) Basophils (%) (Auto) 0 % (0-3) Neutrophils # (Auto) 19.7 x10^3/uL (1.8-7.7) Lymphocytes # (Auto) 0.4 x10^3/uL (1.0-4.8) Monocytes # (Auto) 1.2 x10^3/uL (0.0-1.1) Eosinophils # (Auto) 0.0 x10^3/uL (0.0-0.7) Basophils # (Auto) 0.0 x10^3/uL (0.0-0.2) Sodium Level 159 mmol/L (136-145) Potassium Level 3.4 mmol/L (3.5-5.1) Chloride Level 120 mmol/L (98-107) Carbon Dioxide Level 30 mmol/L (21-32) Anion Gap 9 (6-14) Blood Urea Nitrogen 35 mg/dL (7-20) Creatinine 0.8 mg/dL (0.6-1.0) Estimated GFR (Cockcroft-Gault) 69.6 BUN/Creatinine Ratio 44 (6-20) Glucose Level 226 mg/dL (70-99) Calcium Level 7.2 mg/dL (8.5-10.1) Total Bilirubin 0.6 mg/dL (0.2-1.0) Aspartate Amino Transf (AST/SGOT) 26 U/L (15-37) Alanine Aminotransferase (ALT/SGPT) 78 U/L (14-59) Alkaline Phosphatase 83 U/L (46-116) Total Protein 5.3 g/dL (6.4-8.2) Albumin 2.0 g/dL (3.4-5.0) Albumin/Globulin Ratio 0.6 (1.0-1.7) Glucose (Fingerstick) 199 mg/dL (70-99) 155 mg/dL (70-99) 108 mg/dL (70-99) Test 02/26/21 09:30 02/26/21 11:18 White Blood Count 18.5 x10^3/uL (4.0-11.0) Red Blood Count 2.51 x10^6/uL (3.50-5.40) Hemoglobin 7.4 g/dL (12.0-15.5) Hematocrit 23.8 % (36.0-47.0) Mean Corpuscular Volume 95 fL (79-100) Mean Corpuscular Hemoglobin 29 pg (25-35) Mean Corpuscular Hemoglobin Concent 31 g/dL (31-37) Red Cell Distribution Width 16.8 % (11.5-14.5) Platelet Count 134 x10^3/uL (140-400) Neutrophils (%) (Auto) 89 % (31-73) Lymphocytes (%) (Auto) 4 % (24-48) Monocytes (%) (Auto) 6 % (0-9) Eosinophils (%) (Auto) 1 % (0-3) Basophils (%) (Auto) 0 % (0-3) Neutrophils # (Auto) 16.4 x10^3/uL (1.8-7.7) Lymphocytes # (Auto) 0.8 x10^3/uL (1.0-4.8) Monocytes # (Auto) 1.1 x10^3/uL (0.0-1.1) Eosinophils # (Auto) 0.2 x10^3/uL (0.0-0.7) Basophils # (Auto) 0.0 x10^3/uL (0.0-0.2) Sodium Level 162 mmol/L (136-145) Potassium Level 4.7 mmol/L (3.5-5.1) Chloride Level 127 mmol/L (98-107) Carbon Dioxide Level 29 mmol/L (21-32) Anion Gap 6 (6-14) Blood Urea Nitrogen 30 mg/dL (7-20) Creatinine 0.8 mg/dL (0.6-1.0) Estimated GFR (Cockcroft-Gault) 69.6 BUN/Creatinine Ratio 38 (6-20) Glucose Level 167 mg/dL (70-99) Calcium Level 7.5 mg/dL (8.5-10.1) Total Bilirubin 0.5 mg/dL (0.2-1.0) Aspartate Amino Transf (AST/SGOT) 36 U/L (15-37) Alanine Aminotransferase (ALT/SGPT) 64 U/L (14-59) Alkaline Phosphatase 77 U/L (46-116) Total Protein 4.8 g/dL (6.4-8.2) Albumin 1.9 g/dL (3.4-5.0) Albumin/Globulin Ratio 0.7 (1.0-1.7) Glucose (Fingerstick) 157 mg/dL (70-99) Physical Exam HEENT: Neck Supple W Full Motion Chest: Symmetric LUNGS: Other (diminished bases) Heart: RRR (SR) Abdomen: Other (obese; abdominal incision) Extremities: No Edema Neurology: alert, oriented, follow commands Assessment Assessment 1. S/p ventricular hernia repair 02/13: Continue postop care per general surgery 2. Post-op AFIB/flutter with RVR; maintaining SR with PACs and PVCs. Patient currently poor candidate for long-term anticoagulation secondary to anemia. 3. Acute respiratory failure with AECOPD, CHF. 4. Acute diastolic CHF; echo with preserved LV systolic function, appears compensated 5. Hypertensive urgency: better controlled, but remains slightly elevated 6. Anemia, thrombocytopenia 7. H/o breast CA s/p radiation 8. Hyperkalemia; resolved 9. Encephalopathy: resolved 10. Hypernatremia: D5. as per nephrology Recommendations Continue Cardizem for rate control On Lovenox for DVT prophylaxis presently. Will hold off on increasing to treatment dosing at this time given downward trend in hgb. Monitor hgb. Transfuse as warranted Continue post-op management per surgical team Increase ambulation, OT/PT Justicifation of Admission Dx: Justifications for Admission: Justification of Admission Dx: Yes ALICE LOVE MD 02/26/211938: CARDIO Progress Notes Assessment Assessment Patient seen and examined. Agree with CLAY ARTISAN's assessment and plan. Post op AFib/flutter maintaining SR, she is poor AC candidate at this time Acute on chr diast HF better compensated BP better controlled Continue post op care per GS team CLIFFORD MERLOS APRN Feb 26, 2021 12:08 ALICE LOVE MD Feb 26, 2021 19:39
--- NOTE | 2021-02-26 12:31 | NUR ---
SS following up with discharge planning. SS reviewed pt chart and discussed with pt RN. Pt is currently requiring oxygen at two liters nasal canula. COVID19 negative. Pt has no home oxygen. Pt on PO diet. PT/OT ordered. PT recommended [facility] unit. SS met with pt and contacted pt's spouse to discuss [facility] unit and discharge planning. Pt's spouse reported that pt has two daughters that are RN's and a Niece that is an CABLE TECHNICIAN at . Pt's spouse reported feeling confident that family can care for pt at home with home healthcare. Pt's spouse reported that pt had home healthcare through [facility] after her last knee replacement. Pt's RN and physician notified. SS will continue to follow for discharge planning.
--- NOTE | 2021-02-26 12:36 | PDOC ---
LELA MARIE ARCHITECTURAL ASSOCIATE 02/26/21 1236: SURGICAL PROGRESS NOTE DATE: 02/26/21 TIME: 12:35 Subjective more awake, taking some po Vital Signs Vital Signs Date Time Temp Pulse Resp B/P (MAP) Pulse Ox O2 Delivery O2 Flow Rate FiO2 02/26/21 12:00 78 141/63 02/26/21 11:26 Nasal Cannula 3.0 02/26/21 10:46 97.7 18 97 97.7 I&O Intake and Output 02/26/21 07:00 Intake Total 680 ml Output Total 825 ml Balance -145 ml Intake Oral 680 ml Output Urine Total 800 ml Drainage Total 25 ml # Bowel Movements 2 General: Alert, Cooperative Abdomen: Soft, Other (drains in place, dressing dry) Labs Laboratory Tests Test 02/24/21 16:45 02/24/21 21:11 02/25/21 07:42 02/25/21 11:46 Glucose (Fingerstick) 202 mg/dL (70-99) 158 mg/dL (70-99) 138 mg/dL (70-99) 158 mg/dL (70-99) Test 02/25/21 13:00 02/25/21 16:57 02/25/21 21:30 02/26/21 07:27 White Blood Count 21.4 x10^3/uL (4.0-11.0) Red Blood Count 2.89 x10^6/uL (3.50-5.40) Hemoglobin 8.3 g/dL (12.0-15.5) Hematocrit 26.5 % (36.0-47.0) Mean Corpuscular Volume 92 fL (79-100) Mean Corpuscular Hemoglobin 29 pg (25-35) Mean Corpuscular Hemoglobin Concent 31 g/dL (31-37) Red Cell Distribution Width 16.5 % (11.5-14.5) Platelet Count 164 x10^3/uL (140-400) Neutrophils (%) (Auto) 92 % (31-73) Lymphocytes (%) (Auto) 2 % (24-48) Monocytes (%) (Auto) 6 % (0-9) Eosinophils (%) (Auto) 0 % (0-3) Basophils (%) (Auto) 0 % (0-3) Neutrophils # (Auto) 19.7 x10^3/uL (1.8-7.7) Lymphocytes # (Auto) 0.4 x10^3/uL (1.0-4.8) Monocytes # (Auto) 1.2 x10^3/uL (0.0-1.1) Eosinophils # (Auto) 0.0 x10^3/uL (0.0-0.7) Basophils # (Auto) 0.0 x10^3/uL (0.0-0.2) Sodium Level 159 mmol/L (136-145) Potassium Level 3.4 mmol/L (3.5-5.1) Chloride Level 120 mmol/L (98-107) Carbon Dioxide Level 30 mmol/L (21-32) Anion Gap 9 (6-14) Blood Urea Nitrogen 35 mg/dL (7-20) Creatinine 0.8 mg/dL (0.6-1.0) Estimated GFR (Cockcroft-Gault) 69.6 BUN/Creatinine Ratio 44 (6-20) Glucose Level 226 mg/dL (70-99) Calcium Level 7.2 mg/dL (8.5-10.1) Total Bilirubin 0.6 mg/dL (0.2-1.0) Aspartate Amino Transf (AST/SGOT) 26 U/L (15-37) Alanine Aminotransferase (ALT/SGPT) 78 U/L (14-59) Alkaline Phosphatase 83 U/L (46-116) Total Protein 5.3 g/dL (6.4-8.2) Albumin 2.0 g/dL (3.4-5.0) Albumin/Globulin Ratio 0.6 (1.0-1.7) Glucose (Fingerstick) 199 mg/dL (70-99) 155 mg/dL (70-99) 108 mg/dL (70-99) Test 02/26/21 09:30 02/26/21 11:18 White Blood Count 18.5 x10^3/uL (4.0-11.0) Red Blood Count 2.51 x10^6/uL (3.50-5.40) Hemoglobin 7.4 g/dL (12.0-15.5) Hematocrit 23.8 % (36.0-47.0) Mean Corpuscular Volume 95 fL (79-100) Mean Corpuscular Hemoglobin 29 pg (25-35) Mean Corpuscular Hemoglobin Concent 31 g/dL (31-37) Red Cell Distribution Width 16.8 % (11.5-14.5) Platelet Count 134 x10^3/uL (140-400) Neutrophils (%) (Auto) 89 % (31-73) Lymphocytes (%) (Auto) 4 % (24-48) Monocytes (%) (Auto) 6 % (0-9) Eosinophils (%) (Auto) 1 % (0-3) Basophils (%) (Auto) 0 % (0-3) Neutrophils # (Auto) 16.4 x10^3/uL (1.8-7.7) Lymphocytes # (Auto) 0.8 x10^3/uL (1.0-4.8) Monocytes # (Auto) 1.1 x10^3/uL (0.0-1.1) Eosinophils # (Auto) 0.2 x10^3/uL (0.0-0.7) Basophils # (Auto) 0.0 x10^3/uL (0.0-0.2) Sodium Level 162 mmol/L (136-145) Potassium Level 4.7 mmol/L (3.5-5.1) Chloride Level 127 mmol/L (98-107) Carbon Dioxide Level 29 mmol/L (21-32) Anion Gap 6 (6-14) Blood Urea Nitrogen 30 mg/dL (7-20) Creatinine 0.8 mg/dL (0.6-1.0) Estimated GFR (Cockcroft-Gault) 69.6 BUN/Creatinine Ratio 38 (6-20) Glucose Level 167 mg/dL (70-99) Calcium Level 7.5 mg/dL (8.5-10.1) Total Bilirubin 0.5 mg/dL (0.2-1.0) Aspartate Amino Transf (AST/SGOT) 36 U/L (15-37) Alanine Aminotransferase (ALT/SGPT) 64 U/L (14-59) Alkaline Phosphatase 77 U/L (46-116) Total Protein 4.8 g/dL (6.4-8.2) Albumin 1.9 g/dL (3.4-5.0) Albumin/Globulin Ratio 0.7 (1.0-1.7) Glucose (Fingerstick) 157 mg/dL (70-99) Laboratory Tests Test 02/25/21 13:00 02/25/21 16:57 02/25/21 21:30 02/26/21 07:27 White Blood Count 21.4 x10^3/uL (4.0-11.0) Red Blood Count 2.89 x10^6/uL (3.50-5.40) Hemoglobin 8.3 g/dL (12.0-15.5) Hematocrit 26.5 % (36.0-47.0) Mean Corpuscular Volume 92 fL (79-100) Mean Corpuscular Hemoglobin 29 pg (25-35) Mean Corpuscular Hemoglobin Concent 31 g/dL (31-37) Red Cell Distribution Width 16.5 % (11.5-14.5) Platelet Count 164 x10^3/uL (140-400) Neutrophils (%) (Auto) 92 % (31-73) Lymphocytes (%) (Auto) 2 % (24-48) Monocytes (%) (Auto) 6 % (0-9) Eosinophils (%) (Auto) 0 % (0-3) Basophils (%) (Auto) 0 % (0-3) Neutrophils # (Auto) 19.7 x10^3/uL (1.8-7.7) Lymphocytes # (Auto) 0.4 x10^3/uL (1.0-4.8) Monocytes # (Auto) 1.2 x10^3/uL (0.0-1.1) Eosinophils # (Auto) 0.0 x10^3/uL (0.0-0.7) Basophils # (Auto) 0.0 x10^3/uL (0.0-0.2) Sodium Level 159 mmol/L (136-145) Potassium Level 3.4 mmol/L (3.5-5.1) Chloride Level 120 mmol/L (98-107) Carbon Dioxide Level 30 mmol/L (21-32) Anion Gap 9 (6-14) Blood Urea Nitrogen 35 mg/dL (7-20) Creatinine 0.8 mg/dL (0.6-1.0) Estimated GFR (Cockcroft-Gault) 69.6 BUN/Creatinine Ratio 44 (6-20) Glucose Level 226 mg/dL (70-99) Calcium Level 7.2 mg/dL (8.5-10.1) Total Bilirubin 0.6 mg/dL (0.2-1.0) Aspartate Amino Transf (AST/SGOT) 26 U/L (15-37) Alanine Aminotransferase (ALT/SGPT) 78 U/L (14-59) Alkaline Phosphatase 83 U/L (46-116) Total Protein 5.3 g/dL (6.4-8.2) Albumin 2.0 g/dL (3.4-5.0) Albumin/Globulin Ratio 0.6 (1.0-1.7) Glucose (Fingerstick) 199 mg/dL (70-99) 155 mg/dL (70-99) 108 mg/dL (70-99) Test 02/26/21 09:30 02/26/21 11:18 White Blood Count 18.5 x10^3/uL (4.0-11.0) Red Blood Count 2.51 x10^6/uL (3.50-5.40) Hemoglobin 7.4 g/dL (12.0-15.5) Hematocrit 23.8 % (36.0-47.0) Mean Corpuscular Volume 95 fL (79-100) Mean Corpuscular Hemoglobin 29 pg (25-35) Mean Corpuscular Hemoglobin Concent 31 g/dL (31-37) Red Cell Distribution Width 16.8 % (11.5-14.5) Platelet Count 134 x10^3/uL (140-400) Neutrophils (%) (Auto) 89 % (31-73) Lymphocytes (%) (Auto) 4 % (24-48) Monocytes (%) (Auto) 6 % (0-9) Eosinophils (%) (Auto) 1 % (0-3) Basophils (%) (Auto) 0 % (0-3) Neutrophils # (Auto) 16.4 x10^3/uL (1.8-7.7) Lymphocytes # (Auto) 0.8 x10^3/uL (1.0-4.8) Monocytes # (Auto) 1.1 x10^3/uL (0.0-1.1) Eosinophils # (Auto) 0.2 x10^3/uL (0.0-0.7) Basophils # (Auto) 0.0 x10^3/uL (0.0-0.2) Sodium Level 162 mmol/L (136-145) Potassium Level 4.7 mmol/L (3.5-5.1) Chloride Level 127 mmol/L (98-107) Carbon Dioxide Level 29 mmol/L (21-32) Anion Gap 6 (6-14) Blood Urea Nitrogen 30 mg/dL (7-20) Creatinine 0.8 mg/dL (0.6-1.0) Estimated GFR (Cockcroft-Gault) 69.6 BUN/Creatinine Ratio 38 (6-20) Glucose Level 167 mg/dL (70-99) Calcium Level 7.5 mg/dL (8.5-10.1) Total Bilirubin 0.5 mg/dL (0.2-1.0) Aspartate Amino Transf (AST/SGOT) 36 U/L (15-37) Alanine Aminotransferase (ALT/SGPT) 64 U/L (14-59) Alkaline Phosphatase 77 U/L (46-116) Total Protein 4.8 g/dL (6.4-8.2) Albumin 1.9 g/dL (3.4-5.0) Albumin/Globulin Ratio 0.7 (1.0-1.7) Glucose (Fingerstick) 157 mg/dL (70-99) Assessment/Plan medical management weakness monitor hgb Justicifation of Admission Dx: Justifications for Admission: Justification of Admission Dx: Yes RAO PATTON MD 02/28/21 1233: SURGICAL PROGRESS NOTE Problem List Agree with above LELA MARIE APRN Feb 26, 2021 12:36 RAO PATTON MD Feb 28, 2021 12:33
--- NOTE | 2021-02-26 14:10 | PDOC ---
[facility] PROGRESS NOTE Date of Service DOS: DATE: 02/26/21 TIME: 14:08 Chief Complaint Chief Complaint A/P: Abdominal pain S/p ventricular hernia repair 02/13 Post-op AFIB/flutter with RVR - SR with PACs. on lovenox ppx dosing and IV metoprolol Acute respiratory failure - likely secondary to acute COPD and acute diastolic CHF worsened by Afib as above Acute diastolic CHF - cardiology following, Echo with no reduction in EF Hypertensive urgency - seems to be due to pain Anemia - hgb drift to 8.2 H/o breast CA s/p radiation Hyperkalemia - resolved Encephalopathy - remains lethargic Chronic obstructive pulmonary disease, unknown FEV1 Hypernatremia -nephrology following History of Present Illness History of Present Illness Ms Dyson is a 75yo female w/ PMHx rheumatoid arthritis, depression, hypertension, breast cancer and prior colectomy who was admitted for a large ventral hernia repair which she underwent on February 13. Had done really well after surgery initially she was actually planning to start trialing liquids, but was transferred to ICU for concern for sepsis and new onset A. fib with RVR requiring a Cardizem drip, cardiology, Infectious Disease and pulmonary were consulted. Patient started on broad-spectrum antibiotics. Pulmonary following. 02/16: ICU today. Her condition has significantly improved since last night. She is awake alert and oriented able to answer questions says pain is under control. Blood pressure holding steady. Remains on Cardizem drip. Continue antibiotics today. Requesting to drink if she can, will defer this decision to surgery. 02/17: She is complaining about some shortness of breath but is feeling comfortable. We will try 1 dose of Lasix today based upon chest x-ray. 02/18: Evaluated at bedside. Patient resting in bed. Appears to be in normal sinus rhythm. No major clinical changes otherwise. 02/19: Evaluated at bedside. Patient resting in bed pursed lip breathing D/W XAVIER/ [employer] SUPERVIS[employer], ABG pending d/w in room k 5.8 on tpn pharmacy to adjust k in tpn 02/20: Evaluated at bedside. D/W XAVIER/ [employer] SUPER[employer], ABG pending d/w in room k 5.8 on tpn pharmacy to adjust k in tpn 02/21: Transferred from ICU overnight. Still very confused. Family says she said hello. Moving all 4 extremities. Afebrile. NA 156. WBC 19.2, Hb 8.1. D/w family bedside. 02/22: NA 158. Afebrile. Asking for coffee. Still requiring 3L NCO2. D/w surgery given her deconditioning and need for IV nutrition she would need likely referral to LTACH. 02/23: NA 162. Afebrile. More alert. Asking for food. No BM. Very weak, d/w beside to consider LTACH. Chest radiograph with PICC crossing midline. Diet advanced 02/24: Afebrile overnight. Feeling a little worse. She is taking p.o. had some juice had a bowel movement. Chest radiograph revealed PICC has become malposi tioned. IV on hold. Afebrile. NA 137. Feels a little hot. Has been upset about PICC and making sure she is getting her medications. Reassured she can appropriately medicated by mouth. She is asking for some cold to drink. Noted she still on thickened liquids 02/26 Patient evaluated at bedside. Still frustrated about PICC line, imaging shows it is in the left subclavian. From medical standpoint patient with hypernatremia of 162 today. Still mentating well. Nephrology following. Defer rest to primary surgical team Vitals/I&O Vitals/I&O: Vital Signs Date Time Temp Pulse Resp B/P (MAP) Pulse Ox O2 Delivery O2 Flow Rate FiO2 02/26/21 12:00 78 141/63 02/26/21 11:26 Nasal Cannula 3.0 02/26/21 10:46 97.7 18 97 97.7 I & O 02/25/21 02/25/21 02/26/21 15:00 23:00 07:00 Intake Total 260 ml 220 ml 200 ml Output Total 515 ml 310 ml Balance 260 ml -295 ml -110 ml Physical Exam Physical Exam: GENERAL: Sleepy but arousable HEENT: Normocephalic, atraumatic. Anicteric. Dry mouth NECK: Supple. No JVD. LUNGS: Rales present + for wheezing HEART: Irregularly irregular no murmurs appreciated ABDOMEN: Obese , distended binder in place, not taken down, intact dry Hypoactive bowel sounds [address] EXTREMITIES mild edema present, no cyanosis MUSCULOSKELETAL: No joint swelling. No decrease in range of motion. CENTRAL NERVOUS SYSTEM: Sleepy, arousable PSYCHIATRIC: Cooperative, sleepy PICC line clean General: Alert, Cooperative Heart: Regular rate Lungs: Clear Abdomen: Soft, Other (drains in place, dressing dry) Extremities: No edema, Normal pulses Skin: No significant lesion Labs Labs: Laboratory Tests Test 02/25/21 16:57 02/25/21 21:30 02/26/21 07:27 02/26/21 09:30 Glucose (Fingerstick) 199 mg/dL (70-99) 155 mg/dL (70-99) 108 mg/dL (70-99) White Blood Count 18.5 x10^3/uL (4.0-11.0) Red Blood Count 2.51 x10^6/uL (3.50-5.40) Hemoglobin 7.4 g/dL (12.0-15.5) Hematocrit 23.8 % (36.0-47.0) Mean Corpuscular Volume 95 fL (79-100) Mean Corpuscular Hemoglobin 29 pg (25-35) Mean Corpuscular Hemoglobin Concent 31 g/dL (31-37) Red Cell Distribution Width 16.8 % (11.5-14.5) Platelet Count 134 x10^3/uL (140-400) Neutrophils (%) (Auto) 89 % (31-73) Lymphocytes (%) (Auto) 4 % (24-48) Monocytes (%) (Auto) 6 % (0-9) Eosinophils (%) (Auto) 1 % (0-3) Basophils (%) (Auto) 0 % (0-3) Neutrophils # (Auto) 16.4 x10^3/uL (1.8-7.7) Lymphocytes # (Auto) 0.8 x10^3/uL (1.0-4.8) Monocytes # (Auto) 1.1 x10^3/uL (0.0-1.1) Eosinophils # (Auto) 0.2 x10^3/uL (0.0-0.7) Basophils # (Auto) 0.0 x10^3/uL (0.0-0.2) Sodium Level 162 mmol/L (136-145) Potassium Level 4.7 mmol/L (3.5-5.1) Chloride Level 127 mmol/L (98-107) Carbon Dioxide Level 29 mmol/L (21-32) Anion Gap 6 (6-14) Blood Urea Nitrogen 30 mg/dL (7-20) Creatinine 0.8 mg/dL (0.6-1.0) Estimated GFR (Cockcroft-Gault) 69.6 BUN/Creatinine Ratio 38 (6-20) Glucose Level 167 mg/dL (70-99) Calcium Level 7.5 mg/dL (8.5-10.1) Total Bilirubin 0.5 mg/dL (0.2-1.0) Aspartate Amino Transf (AST/SGOT) 36 U/L (15-37) Alanine Aminotransferase (ALT/SGPT) 64 U/L (14-59) Alkaline Phosphatase 77 U/L (46-116) Total Protein 4.8 g/dL (6.4-8.2) Albumin 1.9 g/dL (3.4-5.0) Albumin/Globulin Ratio 0.7 (1.0-1.7) Test 02/26/21 11:18 Glucose (Fingerstick) 157 mg/dL (70-99) Comment Review of Relevant I have reviewed the following items keely (where applicable) has been applied. Medications: Current Medications Medications (Trade) Dose Ordered Sig/Isael Route PRN Reason Start Time Stop Time Status Last Admin Dose Admin Potassium Chloride (Klor-Con) 40 meq 1X ONCE PO 02/25/21 15:30 02/25/21 15:31 DC 02/25/21 16:54 Justifications for Admission Other Justification BENY HUGGINS MD Feb 26, 2021 14:10
[2021-02-26 14:37] VITALS: BP 156/68
[2021-02-26] MEDS ORDERED: ALTEPLASE 1MG SYRINGE. INT CAT ONE (17:00)
[2021-02-26] MEDS: ENOXAPARIN 40 MG/0.4 ML SYRINGE. SQ SCH (17:49)
[2021-02-26 19:30] VITALS: BP 167/70
--- NOTE | 2021-02-26 19:40 | NUR ---
Assessment completed vss poc explained pt without c/o pain at this time will resume care and continue to monitor pt. call light placed in reach.
[2021-02-26] MEDS: INSULIN GLARGINE SYRINGE. SQ SCH (21:48)
[2021-02-26] MEDS: fentaNYL PF VIAL 100 MCG/2 ML VIAL IVP PRN (22:03)
[2021-02-26 23:05] VITALS: BP 166/78
[2021-02-27 02:35] VITALS: BP 158/65
[2021-02-27] MEDS: NITROGLYCERIN OINT 1 GM PACKET. TP SCH ×4 (05:46→23:55)
[2021-02-27] MEDS: IV DEXTROSE 5% 1,000 ML IV SCH ×3 (05:46→21:27)
[2021-02-27 07:00] VITALS: BP 167/71
[2021-02-27] MEDS: INSULIN LISPRO 300 UNITS/3 ML VIAL. SQ SCH ×4 (07:30→21:28)
[2021-02-27] MEDS: BUDESONIDE 0.5 MG/2 ML NEBU. NEB SCH ×2 (07:33→19:52)
[2021-02-27] MEDS: IPRATROPIUM BROMIDE 0.5 MG/2.5 ML NEBU. NEB SCH ×4 (07:33→19:52)
[2021-02-27] MEDS: AMOXICILLIN/K CLAV 875/125MG TABLET. PO SCH (08:42)
[2021-02-27] MEDS: predniSONE 20 MG TABLET PO SCH (08:42)
[2021-02-27] MEDS: FAMOTIDINE 20 MG TABLET. PO SCH ×2 (08:43→21:27)
[2021-02-27] MEDS: LACTOBACILLUS RHAMNOSUS GG 1 CAPSULE. PO SCH ×2 (08:43→21:27)
[2021-02-27] MEDS: LISINOPRIL 20 MG TABLET PO SCH (08:44)
--- NOTE | 2021-02-27 08:52 | PDOC ---
PULMONARY PROGRESS NOTES DATE: 02/27/21 TIME: 08:52 Subjective Patient very weak, sitting up in the chair. Patient is with no new respiratory complaint Vitals Vital Signs Date Time Temp Pulse Resp B/P (MAP) Pulse Ox O2 Delivery O2 Flow Rate FiO2 02/27/21 08:45 78 02/27/21 07:29 97 Nasal Cannula 3.0 02/27/21 05:46 158/65 02/27/21 02:35 97.6 18 97.6 Comments ros as mentioned above other sys otherwise neg General: Alert, No acute distress Lungs: Clear Cardiovascular: S1 Abdomen: Soft, Other (Tender in the lower quadrants) Extremities: Other (Marked edema) Skin: Warm Labs Laboratory Tests Test 02/25/21 11:46 02/25/21 13:00 02/25/21 16:57 02/25/21 21:30 Glucose (Fingerstick) 158 mg/dL (70-99) 199 mg/dL (70-99) 155 mg/dL (70-99) White Blood Count 21.4 x10^3/uL (4.0-11.0) Red Blood Count 2.89 x10^6/uL (3.50-5.40) Hemoglobin 8.3 g/dL (12.0-15.5) Hematocrit 26.5 % (36.0-47.0) Mean Corpuscular Volume 92 fL (79-100) Mean Corpuscular Hemoglobin 29 pg (25-35) Mean Corpuscular Hemoglobin Concent 31 g/dL (31-37) Red Cell Distribution Width 16.5 % (11.5-14.5) Platelet Count 164 x10^3/uL (140-400) Neutrophils (%) (Auto) 92 % (31-73) Lymphocytes (%) (Auto) 2 % (24-48) Monocytes (%) (Auto) 6 % (0-9) Eosinophils (%) (Auto) 0 % (0-3) Basophils (%) (Auto) 0 % (0-3) Neutrophils # (Auto) 19.7 x10^3/uL (1.8-7.7) Lymphocytes # (Auto) 0.4 x10^3/uL (1.0-4.8) Monocytes # (Auto) 1.2 x10^3/uL (0.0-1.1) Eosinophils # (Auto) 0.0 x10^3/uL (0.0-0.7) Basophils # (Auto) 0.0 x10^3/uL (0.0-0.2) Sodium Level 159 mmol/L (136-145) Potassium Level 3.4 mmol/L (3.5-5.1) Chloride Level 120 mmol/L (98-107) Carbon Dioxide Level 30 mmol/L (21-32) Anion Gap 9 (6-14) Blood Urea Nitrogen 35 mg/dL (7-20) Creatinine 0.8 mg/dL (0.6-1.0) Estimated GFR (Cockcroft-Gault) 69.6 BUN/Creatinine Ratio 44 (6-20) Glucose Level 226 mg/dL (70-99) Calcium Level 7.2 mg/dL (8.5-10.1) Total Bilirubin 0.6 mg/dL (0.2-1.0) Aspartate Amino Transf (AST/SGOT) 26 U/L (15-37) Alanine Aminotransferase (ALT/SGPT) 78 U/L (14-59) Alkaline Phosphatase 83 U/L (46-116) Total Protein 5.3 g/dL (6.4-8.2) Albumin 2.0 g/dL (3.4-5.0) Albumin/Globulin Ratio 0.6 (1.0-1.7) Test 02/26/21 07:27 02/26/21 09:30 02/26/21 11:18 02/26/21 16:23 Glucose (Fingerstick) 108 mg/dL (70-99) 157 mg/dL (70-99) 236 mg/dL (70-99) White Blood Count 18.5 x10^3/uL (4.0-11.0) Red Blood Count 2.51 x10^6/uL (3.50-5.40) Hemoglobin 7.4 g/dL (12.0-15.5) Hematocrit 23.8 % (36.0-47.0) Mean Corpuscular Volume 95 fL (79-100) Mean Corpuscular Hemoglobin 29 pg (25-35) Mean Corpuscular Hemoglobin Concent 31 g/dL (31-37) Red Cell Distribution Width 16.8 % (11.5-14.5) Platelet Count 134 x10^3/uL (140-400) Neutrophils (%) (Auto) 89 % (31-73) Lymphocytes (%) (Auto) 4 % (24-48) Monocytes (%) (Auto) 6 % (0-9) Eosinophils (%) (Auto) 1 % (0-3) Basophils (%) (Auto) 0 % (0-3) Neutrophils # (Auto) 16.4 x10^3/uL (1.8-7.7) Lymphocytes # (Auto) 0.8 x10^3/uL (1.0-4.8) Monocytes # (Auto) 1.1 x10^3/uL (0.0-1.1) Eosinophils # (Auto) 0.2 x10^3/uL (0.0-0.7) Basophils # (Auto) 0.0 x10^3/uL (0.0-0.2) Sodium Level 162 mmol/L (136-145) Potassium Level 4.7 mmol/L (3.5-5.1) Chloride Level 127 mmol/L (98-107) Carbon Dioxide Level 29 mmol/L (21-32) Anion Gap 6 (6-14) Blood Urea Nitrogen 30 mg/dL (7-20) Creatinine 0.8 mg/dL (0.6-1.0) Estimated GFR (Cockcroft-Gault) 69.6 BUN/Creatinine Ratio 38 (6-20) Glucose Level 167 mg/dL (70-99) Calcium Level 7.5 mg/dL (8.5-10.1) Total Bilirubin 0.5 mg/dL (0.2-1.0) Aspartate Amino Transf (AST/SGOT) 36 U/L (15-37) Alanine Aminotransferase (ALT/SGPT) 64 U/L (14-59) Alkaline Phosphatase 77 U/L (46-116) Total Protein 4.8 g/dL (6.4-8.2) Albumin 1.9 g/dL (3.4-5.0) Albumin/Globulin Ratio 0.7 (1.0-1.7) Test 02/26/21 21:42 02/27/21 07:43 Glucose (Fingerstick) 168 mg/dL (70-99) 126 mg/dL (70-99) Laboratory Tests Test 02/26/21 09:30 02/26/21 11:18 02/26/21 16:23 02/26/21 21:42 White Blood Count 18.5 x10^3/uL (4.0-11.0) Red Blood Count 2.51 x10^6/uL (3.50-5.40) Hemoglobin 7.4 g/dL (12.0-15.5) Hematocrit 23.8 % (36.0-47.0) Mean Corpuscular Volume 95 fL (79-100) Mean Corpuscular Hemoglobin 29 pg (25-35) Mean Corpuscular Hemoglobin Concent 31 g/dL (31-37) Red Cell Distribution Width 16.8 % (11.5-14.5) Platelet Count 134 x10^3/uL (140-400) Neutrophils (%) (Auto) 89 % (31-73) Lymphocytes (%) (Auto) 4 % (24-48) Monocytes (%) (Auto) 6 % (0-9) Eosinophils (%) (Auto) 1 % (0-3) Basophils (%) (Auto) 0 % (0-3) Neutrophils # (Auto) 16.4 x10^3/uL (1.8-7.7) Lymphocytes # (Auto) 0.8 x10^3/uL (1.0-4.8) Monocytes # (Auto) 1.1 x10^3/uL (0.0-1.1) Eosinophils # (Auto) 0.2 x10^3/uL (0.0-0.7) Basophils # (Auto) 0.0 x10^3/uL (0.0-0.2) Sodium Level 162 mmol/L (136-145) Potassium Level 4.7 mmol/L (3.5-5.1) Chloride Level 127 mmol/L (98-107) Carbon Dioxide Level 29 mmol/L (21-32) Anion Gap 6 (6-14) Blood Urea Nitrogen 30 mg/dL (7-20) Creatinine 0.8 mg/dL (0.6-1.0) Estimated GFR (Cockcroft-Gault) 69.6 BUN/Creatinine Ratio 38 (6-20) Glucose Level 167 mg/dL (70-99) Calcium Level 7.5 mg/dL (8.5-10.1) Total Bilirubin 0.5 mg/dL (0.2-1.0) Aspartate Amino Transf (AST/SGOT) 36 U/L (15-37) Alanine Aminotransferase (ALT/SGPT) 64 U/L (14-59) Alkaline Phosphatase 77 U/L (46-116) Total Protein 4.8 g/dL (6.4-8.2) Albumin 1.9 g/dL (3.4-5.0) Albumin/Globulin Ratio 0.7 (1.0-1.7) Glucose (Fingerstick) 157 mg/dL (70-99) 236 mg/dL (70-99) 168 mg/dL (70-99) Test 02/27/21 07:43 Glucose (Fingerstick) 126 mg/dL (70-99) Medications Active Scripts Medications Dose Route/Sig Max Daily Dose Days Date Category Vitamin B12 (Cyanocobalamin (Vitamin B-12)) 2,500 Mcg Tablet 500 Mg PO BID 02/15/21 Reported Nexium Capsule (Esomeprazole Magnesium) 40 Mg Capsule.dr Ruiz Cap PO BID 02/15/21 Reported Calcium 600 + Vit D 800 Tab (Calcium Carbonate/Vitamin D3) 1 Each Tablet 1 Tab PO BID 30 02/15/21 Reported Benefiber (Wheat Dextrin) 1 Each Powd.pack 1 Each PO DAILY 02/15/21 Reported Lisinopril 10 Mg Tablet 1 Tab PO DAILY 02/15/21 Reported Leflunomide 10 Mg Tablet 10 Mg PO DAILY 02/15/21 Reported Prednisone 2.5 Mg Tablet 5 Mg PO DAILY 02/15/21 Reported Metoprolol Tartrate 25 Mg Tablet 1 Tab PO DAILY 02/15/21 Reported Hydrocodone-Apap 5-325 (Hydrocodone Bit/Acetaminophen) 1 Tab Tablet 1 Tab PO PRN BID PRN 02/15/21 Reported Gabapentin 100 Mg Capsule 100 Mg PO PRN BID PRN 02/15/21 Reported Folic Acid 0.8 Mg Tablet 3 Mg PO DAILY 02/15/21 Reported Cymbalta (Duloxetine Hcl) 30 Mg Capsule.dr Ruiz Cap PO DAILY 02/15/21 Reported Prolia (Denosumab) 60 Mg/1 Ml Disp.syrin 1 Syr SQ [id number] 1 02/15/21 Reported Celexa (Citalopram Hydrobromide) 10 Mg Tablet 1 Tab PO DAILY 02/15/21 Reported Alprazolam 0.25 Mg Tablet 0.25 Mg PO PRN DAILY PRN 02/15/21 Reported Impression . IMPRESSION: 1. Acute hypoxemic respiratory failure, multifactorial. 2. Abnormal x-ray, compatible with effusion, possibly congestive heart failure. Possible pneumonia. She does have underlying interstitial lung disease likely related to rheumatoid arthritis. 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 A. fib with rapid ventricular response, controlled 4. Leukocytosis. 5. Fever. resolved 6. Status post large ventral hernia repair on 02/13. 7. Rheumatoid arthritis with previously diagnosed as interstitial lung disease. 8. Hypertension. 9. Breast cancer, status post radiation. 10. Tobacco dependence, in remission. 11. Chronic obstructive pulmonary disease, unknown FEV1 12. Multifactorial encephalopathy/delirium/toxic 13. Hyponatremia, 14. Debility, weakness Plan . Updated 02/27 Continue current support Antibiotics per ID Up to chair Oxygen supplementation PT OT updated 02/26 continue oxygen supplementation Avoid narcotics Antibiotics per ID Discussed with ASHLY MCDONOUGH MD Feb 27, 2021 08:52
--- NOTE | 2021-02-27 10:09 | PDOC ---
DATE OF SERVICE DATE: 02/27/21 TIME: 10:08 SUBJECTIVE ROS Stable , No SOB at rest No N/V OBJECTIVE Vital Signs Vital Signs Date Time Temp Pulse Resp B/P (MAP) Pulse Ox O2 Delivery O2 Flow Rate FiO2 02/27/21 08:45 78 02/27/21 07:29 97 Nasal Cannula 3.0 02/27/21 07:00 98.9 18 167/71 (103) 98.9 I & 0 Intake and Output 02/27/21 07:00 Intake Total 1000 ml Output Total 1182 ml Balance -182 ml Intake Oral 1000 ml Output Urine Total 1150 ml Drainage Total 32 ml PHYSICAL EXAM Physical Exam GENERALNAD HEENT: Normocephalic, atraumatic. Anicteric. OM dry NECK: Supple. LUNGS: Decreased at bases, Non labored ABD Soft, drains serosang, dressing to incision EXT Mild LE edema , swelling + hands HEART: S1S2 NEURO : grossly nonfocal. Generalized weakness Barraza in place , No CVA or SP tenderness DIAGNOSIS/ASSESSMENT Assessment & Plan Hyper atremia- suspect 2/2 Overdiuresis , NPO . Na Improved from 162->157 with D5W . No IV access since Friday night, did not receive IVF (Hypotonic D5W as ordered) since then ; Na up tp 162 today Continue IV D5W as ordered on 02/23- Discussed with nursing Friday/Friday . Blood glucose monitoring and management per primary . Repeat Na at 1500 and please call with results. Mir RN - RN UNABLE TO DRAW LABS PENDING THIS MORNING WELL HyperKalemia - Resolved K ,Monitor MARILEE at presentation- Cr 1.3 resolved .BUN in 60's stable, likely sec to steroids UOP improved Anemia- slow decreasing Hgb, defer to primary Acute hypoxemic respiratory failure, multifactorial- Abnormal x-ray A. fib with rapid ventricular response Status post large ventral hernia repair on 02/13. awaiting return of bowel function, still NPO . GS following Hypertension BP high COMMENT/RELEVANT DATA Meds Current Medications Medications (Trade) Dose Ordered Sig/Isael Start Time Stop Time Status Last Admin Dose Admin Acetaminophen (Tylenol) 650 mg PRN Q6HRS PRN 02/24/21 14:45 02/24/21 16:06 650 MG Albuterol Sulfate (Ventolin Neb Soln) 2.5 mg PRN Q4HRS PRN 02/18/21 06:45 02/25/21 04:38 2.5 MG Alteplase, Recombinant (Cathflo For Central Catheter Clearance) 1 mg 1X ONCE 02/26/21 17:00 02/26/21 17:01 DC 02/26/21 17:50 1 MG Amoxicillin/ Clavulanate Potassium (Augmentin 875/ 125mg) 1 tab BID 02/24/21 11:30 02/27/21 09:40 DC 02/27/21 08:42 1 TAB Budesonide (Pulmicort) 0.5 mg RTBID 02/18/21 20:00 02/27/21 07:33 0.5 MG Cefazolin Sodium (Ancef) 1 gm 1X PREOP PRN 02/13/21 10:00 02/13/21 15:08 DC Cefazolin Sodium/ Dextrose 0 ml @ As Directed STK-MED ONCE 02/13/21 09:45 02/13/21 09:45 DC Cefepime HCl (Maxipime) 2 gm Q12HR 02/16/21 12:00 02/20/21 08:33 DC 02/19/21 21:02 2 GM Dexamethasone Sodium Phosphate (Decadron) 4 mg STK-MED ONCE 02/13/21 09:36 02/13/21 09:36 DC Dextrose 1,000 ml @ 150 mls/hr Q6H40M 02/21/21 12:45 02/27/21 05:46 150 MLS/HR Dextrose (Dextrose 50%-Water Syringe) 12.5 gm PRN Q15MIN PRN 02/18/21 12:00 Digoxin (Lanoxin) 500 mcg 1X ONCE 02/19/21 14:45 02/19/21 14:46 DC 02/19/21 15:15 500 MCG Diltiazem HCl (Cardizem 24hr Cd) 240 mg DAILY 02/24/21 09:00 02/27/21 08:45 240 MG Diltiazem HCl 125 mg/Sodium Chloride 125 ml @ 5 mls/hr CONT PRN 02/15/21 21:30 02/23/21 12:24 DC 02/23/21 01:59 10 MLS/HR Enalaprilat (Vasotec Inj) 1.25 mg Q6HRS 02/22/21 12:00 02/23/21 12:24 DC 02/23/21 06:28 1.25 MG Enoxaparin Sodium (Lovenox 40mg Syringe) 40 mg Q24H 02/13/21 18:00 02/26/21 17:49 40 MG Epinephrine (S2 Racepinephrine) 0.5 ml 1X ONCE 02/17/21 14:15 02/17/21 14:16 DC 02/17/21 15:29 0.5 ML Famotidine (Pepcid Vial) 20 mg QHS 02/19/21 21:00 02/24/21 14:34 DC 02/22/21 21:15 20 MG Famotidine (Pepcid) 20 mg BID 02/24/21 21:00 02/27/21 08:43 20 MG Fentanyl Citrate (Fentanyl 2ml Vial) 25 mcg PRN Q2HRS PRN 02/21/21 10:15 02/26/21 22:03 25 MCG Furosemide (Lasix) 40 mg DAILY 02/19/21 11:45 02/21/21 12:57 DC 02/21/21 08:37 40 MG Glycopyrrolate (Robinul) 1 mg STK-MED ONCE 02/13/21 16:33 02/13/21 16:33 DC Hydralazine HCl (Apresoline Inj) 10 mg 1X ONCE 02/21/21 14:15 02/21/21 17:30 DC 02/21/21 14:43 10 MG Hydromorphone HCl (Dilaudid) 0.2 mg PRN Q4HRS PRN 02/20/21 08:30 02/20/21 09:05 DC Info (FLU VACCINE SCREEN per RX) 1 each PRN DAILY PRN 02/14/21 23:30 Cancel Info (Tpn Per Pharmacy) 1 each PRN DAILY PRN 02/22/21 13:30 02/23/21 12:26 DC 02/22/21 15:04 1 EACH Insulin Glargine (Lantus Syringe) 8 unit QHS 02/20/21 21:00 02/26/21 21:48 8 UNIT Insulin Human Lispro (HumaLOG) 0-7 UNITS QIDACHS 02/23/21 17:15 02/26/21 17:57 4 UNITS Ipratropium [place] (Atrovent) 0.5 mg RTQID 02/16/21 08:00 02/27/21 07:33 0.5 MG Ketorolac Tromethamine (Toradol 15mg Vial) 15 mg 1X ONCE 02/14/21 09:15 02/14/21 09:19 DC 02/14/21 09:33 15 MG Labetalol HCl (Normodyne Iv Push) 20 mg PRN Q2HR PRN 02/21/21 12:15 Lactobacillus Rhamnosus (Culturelle) 1 cap BID 02/24/21 21:00 02/27/21 08:43 1 CAP Lidocaine HCl (Lidocaine Pf 2% Vial) 5 ml STK-MED ONCE 02/13/21 09:36 02/13/21 09:36 DC Linezolid/Dextrose 300 ml @ 300 mls/hr Q12HR 02/16/21 12:00 02/19/21 10:34 DC 02/19/21 09:22 300 MLS/HR Lisinopril (Prinivil) 20 mg DAILY 02/23/21 12:30 02/27/21 08:44 20 MG Lorazepam (Ativan Inj) 1 mg PRN Q4HRS PRN 02/17/21 11:15 02/18/21 14:43 DC 02/18/21 14:31 1 MG Methylprednisolone Sodium Succinate (SOLU-Medrol 40MG VIAL) 60 mg Q8HRS 02/20/21 14:00 02/23/21 12:23 DC 02/23/21 06:31 60 MG Methylprednisolone Sodium Succinate (SOLU-Medrol 125MG VIAL) 60 mg DAILY 02/24/21 09:00 02/24/21 14:34 DC Metoprolol Tartrate (Lopressor Vial) 5 mg Q6HRS 02/19/21 18:00 02/23/21 13:54 DC 02/23/21 06:27 5 MG Metronidazole 100 ml @ 100 mls/hr Q12HR 02/15/21 22:00 02/19/21 10:34 DC 02/19/21 09:21 100 MLS/HR Morphine Sulfate (Morphine Sulfate) 1 mg 1X ONCE 02/17/21 11:15 02/17/21 11:16 DC 02/17/21 11:20 1 MG Naloxone HCl (Narcan) 0.4 mg PRN Q2MIN PRN 02/13/21 17:15 02/19/21 08:26 0.4 MG Neostigmine [place] (Neostigmine Methylsulfate) 5 mg STK-MED ONCE 02/13/21 16:33 02/13/21 16:33 DC Nitroglycerin (Nitro-Bid Oint) 1 inch Q6HRS 02/20/21 13:00 02/27/21 05:46 1 INCH Ondansetron HCl (Zofran) 4 mg PRN Q6HRS PRN 02/13/21 17:15 02/22/21 15:32 4 MG Oxycodone/ Acetaminophen (Percocet 5/325) 1 tab PRN Q6HRS PRN 02/25/21 10:30 02/25/21 23:42 1 TAB Phenol (Chloraseptic) 1 spray PRN Q2HR PRN 02/25/21 09:00 02/25/21 09:30 1 SPRAY Piperacillin Sod/ Tazobactam Sod 3.375 gm/Sodium Chloride 50 ml @ 100 mls/hr Q6HRS 02/21/21 09:00 02/24/21 10:07 DC 02/23/21 13:10 100 MLS/HR Potassium Phosphate 15 mmol/ Sodium Chloride 105 ml @ 52.5 mls/hr 1X ONCE 02/16/21 15:00 02/16/21 16:59 DC 02/16/21 15:43 52.5 MLS/HR Potassium Phosphate 30 mmol/ Multivitamins 10 ml/Zinc/Copper/ Manganese/ Selenium 1 ml/ Total Parenteral Nutrition/Amino Acids/Dextrose/ Fat Emulsion Intravenous 1,440 ml @ 60 mls/hr TPN CONT 02/22/21 22:00 02/23/21 21:59 DC Potassium Chloride (Klor-Con) 40 meq 1X ONCE 02/25/21 15:30 02/25/21 15:31 DC 02/25/21 16:54 40 MEQ Prednisone (Prednisone) 20 mg DAILY 02/24/21 15:30 02/27/21 08:42 20 MG Prochlorperazine Edisylate (Compazine) 5 mg PACU PRN PRN 02/13/21 06:00 02/13/21 21:00 DC Propofol (Diprivan) 200 mg STK-MED ONCE 02/13/21 09:36 02/13/21 09:36 DC Ringer's Solution 1,000 ml @ 30 mls/hr Q24H 02/13/21 06:00 02/13/21 18:00 DC Rocuronium [place] (Zemuron) 50 mg STK-MED ONCE 02/13/21 13:53 02/13/21 13:54 DC Sodium Acetate 90 meq/Sodium Phosphate 20 mmol/ Potassium Chloride 30 meq/ Potassium Phosphate 20 mmol/ Multivitamins 10 ml/Zinc/Copper/ Manganese/ Selenium 1 ml/ Total Parenteral Nutrition/Amino Acids/Dextrose/ Fat Emulsion Intravenous 1,080 ml @ 45 mls/hr TPN CONT 02/18/21 22:00 02/19/21 21:59 DC 02/18/21 21:35 45 MLS/HR Sodium Chloride (Normal Saline Flush) 3 ml QSHIFT PRN 02/13/21 17:15 Sodium Chloride 90 meq/Potassium Chloride 50 meq/ Potassium Phosphate 20 mmol/ Magnesium Sulfate 10 meq/Calcium Gluconate 10 meq/ Multivitamins 10 ml/Zinc/Copper/ Manganese/ Selenium 1 ml/ Total Parenteral Nutrition/Amino Acids/Dextrose/ Fat Emulsion Intravenous 1,296 ml @ 54 mls/hr TPN CONT 02/16/21 22:00 02/17/21 21:59 DC 02/16/21 21:24 54 MLS/HR Sodium Chloride 90 meq/Sodium Phosphate 10 mmol/ Potassium Chloride 50 meq/ Potassium Phosphate 20 mmol/ Magnesium Sulfate 5 meq/ Multivitamins 10 ml/Zinc/Copper/ Manganese/ Selenium 1 ml/ Total Parenteral Nutrition/Amino Acids/Dextrose/ Fat Emulsion Intravenous 1,080 ml @ 45 mls/hr TPN CONT 02/17/21 22:00 02/18/21 21:59 DC 02/17/21 21:12 45 MLS/HR Sodium Phosphate 15 mmol/Sodium Chloride 105 ml @ 105 mls/hr 1X ONCE 02/18/21 10:00 02/18/21 10:59 DC 02/18/21 09:20 105 MLS/HR Sodium Phosphate 20 mmol/Potassium Phosphate 20 mmol/ Multivitamins 10 ml/Zinc/Copper/ Manganese/ Selenium 1 ml/ Total Parenteral Nutrition/Amino Acids/Dextrose/ Fat Emulsion Intravenous 1,320 ml @ 55 mls/hr TPN CONT 02/21/21 22:00 02/22/21 21:59 DC Sodium Phosphate 20 mmol/Sodium Chloride 256.6667 ml @ 64.167 m... 1X ONCE 02/17/21 09:15 02/17/21 13:14 UNV Sodium Phosphate 40 mmol/ Multivitamins 10 ml/Zinc/Copper/ Manganese/ Selenium 1 ml/ Total Parenteral Nutrition/Amino Acids/Dextrose/ Fat Emulsion Intravenous 1,080 ml @ 45 mls/hr TPN CONT 02/20/21 22:00 02/21/21 12:43 DC 02/20/21 22:45 45 MLS/HR Succinylcholine Chloride (Anectine) 200 mg STK-MED ONCE 02/13/21 09:38 02/13/21 09:38 DC Throat Lozenges (Cepacol Sore Throat Lozenge) 1 macario PRN Q2HRS PRN 02/24/21 14:45 02/25/21 09:25 1 MACARIO Vancomycin HCl (Vanco Per Pharmacy) 1 each PRN DAILY PRN 02/15/21 21:30 02/16/21 11:17 DC 02/16/21 03:40 1 EACH Vancomycin HCl (Vancomycin Trough Level) 1 each 1X ONCE 02/17/21 22:30 02/16/21 11:17 DC Vancomycin HCl 1.75 gm/Sodium Chloride 500 ml @ 250 mls/hr 1X ONCE 02/15/21 22:00 02/15/21 23:59 DC 02/15/21 23:00 250 MLS/HR Vancomycin HCl 1 gm/Sodium Chloride 250 ml @ 250 mls/hr Q24H 02/16/21 23:00 02/16/21 11:16 DC Lab Laboratory Tests Test 02/26/21 11:18 02/26/21 16:23 02/26/21 21:42 02/27/21 07:43 Glucose (Fingerstick) 157 mg/dL (70-99) 236 mg/dL (70-99) 168 mg/dL (70-99) 126 mg/dL (70-99) Results All relevant outside records, renal labs, imaging studies, telemetry/EKG's were reviewed. Justicifation of Admission Dx: Justifications for Admission: Justification of Admission Dx: Yes ARMINDA LYMAN MD Feb 27, 2021 10:09
[2021-02-27 11:00] VITALS: BP 160/67
--- NOTE | 2021-02-27 11:29 | PDOC ---
LELA MARIE PRESS WRITER 02/27/21 1129: SURGICAL PROGRESS NOTE DATE: 02/27/21 TIME: 11:26 Subjective resting working with therapy d/w nursing--so weak, that could not ambulate to commode and calhoun was left in place-family plans home with Vital Signs Vital Signs Date Time Temp Pulse Resp B/P (MAP) Pulse Ox O2 Delivery O2 Flow Rate FiO2 02/27/21 08:45 78 02/27/21 07:29 97 Nasal Cannula 3.0 02/27/21 07:00 98.9 18 167/71 (103) 98.9 I&O Intake and Output 02/27/21 07:00 Intake Total 1000 ml Output Total 1182 ml Balance -182 ml Intake Oral 1000 ml Output Urine Total 1150 ml Drainage Total 32 ml PATIENT HAS A CALHOUN: Yes General: Cooperative, No acute distress Abdomen: Soft, Other (drains in place) Labs Laboratory Tests Test 02/25/21 11:46 02/25/21 13:00 02/25/21 16:57 02/25/21 21:30 Glucose (Fingerstick) 158 mg/dL (70-99) 199 mg/dL (70-99) 155 mg/dL (70-99) White Blood Count 21.4 x10^3/uL (4.0-11.0) Red Blood Count 2.89 x10^6/uL (3.50-5.40) Hemoglobin 8.3 g/dL (12.0-15.5) Hematocrit 26.5 % (36.0-47.0) Mean Corpuscular Volume 92 fL (79-100) Mean Corpuscular Hemoglobin 29 pg (25-35) Mean Corpuscular Hemoglobin Concent 31 g/dL (31-37) Red Cell Distribution Width 16.5 % (11.5-14.5) Platelet Count 164 x10^3/uL (140-400) Neutrophils (%) (Auto) 92 % (31-73) Lymphocytes (%) (Auto) 2 % (24-48) Monocytes (%) (Auto) 6 % (0-9) Eosinophils (%) (Auto) 0 % (0-3) Basophils (%) (Auto) 0 % (0-3) Neutrophils # (Auto) 19.7 x10^3/uL (1.8-7.7) Lymphocytes # (Auto) 0.4 x10^3/uL (1.0-4.8) Monocytes # (Auto) 1.2 x10^3/uL (0.0-1.1) Eosinophils # (Auto) 0.0 x10^3/uL (0.0-0.7) Basophils # (Auto) 0.0 x10^3/uL (0.0-0.2) Sodium Level 159 mmol/L (136-145) Potassium Level 3.4 mmol/L (3.5-5.1) Chloride Level 120 mmol/L (98-107) Carbon Dioxide Level 30 mmol/L (21-32) Anion Gap 9 (6-14) Blood Urea Nitrogen 35 mg/dL (7-20) Creatinine 0.8 mg/dL (0.6-1.0) Estimated GFR (Cockcroft-Gault) 69.6 BUN/Creatinine Ratio 44 (6-20) Glucose Level 226 mg/dL (70-99) Calcium Level 7.2 mg/dL (8.5-10.1) Total Bilirubin 0.6 mg/dL (0.2-1.0) Aspartate Amino Transf (AST/SGOT) 26 U/L (15-37) Alanine Aminotransferase (ALT/SGPT) 78 U/L (14-59) Alkaline Phosphatase 83 U/L (46-116) Total Protein 5.3 g/dL (6.4-8.2) Albumin 2.0 g/dL (3.4-5.0) Albumin/Globulin Ratio 0.6 (1.0-1.7) Test 02/26/21 07:27 02/26/21 09:30 02/26/21 11:18 02/26/21 16:23 Glucose (Fingerstick) 108 mg/dL (70-99) 157 mg/dL (70-99) 236 mg/dL (70-99) White Blood Count 18.5 x10^3/uL (4.0-11.0) Red Blood Count 2.51 x10^6/uL (3.50-5.40) Hemoglobin 7.4 g/dL (12.0-15.5) Hematocrit 23.8 % (36.0-47.0) Mean Corpuscular Volume 95 fL (79-100) Mean Corpuscular Hemoglobin 29 pg (25-35) Mean Corpuscular Hemoglobin Concent 31 g/dL (31-37) Red Cell Distribution Width 16.8 % (11.5-14.5) Platelet Count 134 x10^3/uL (140-400) Neutrophils (%) (Auto) 89 % (31-73) Lymphocytes (%) (Auto) 4 % (24-48) Monocytes (%) (Auto) 6 % (0-9) Eosinophils (%) (Auto) 1 % (0-3) Basophils (%) (Auto) 0 % (0-3) Neutrophils # (Auto) 16.4 x10^3/uL (1.8-7.7) Lymphocytes # (Auto) 0.8 x10^3/uL (1.0-4.8) Monocytes # (Auto) 1.1 x10^3/uL (0.0-1.1) Eosinophils # (Auto) 0.2 x10^3/uL (0.0-0.7) Basophils # (Auto) 0.0 x10^3/uL (0.0-0.2) Sodium Level 162 mmol/L (136-145) Potassium Level 4.7 mmol/L (3.5-5.1) Chloride Level 127 mmol/L (98-107) Carbon Dioxide Level 29 mmol/L (21-32) Anion Gap 6 (6-14) Blood Urea Nitrogen 30 mg/dL (7-20) Creatinine 0.8 mg/dL (0.6-1.0) Estimated GFR (Cockcroft-Gault) 69.6 BUN/Creatinine Ratio 38 (6-20) Glucose Level 167 mg/dL (70-99) Calcium Level 7.5 mg/dL (8.5-10.1) Total Bilirubin 0.5 mg/dL (0.2-1.0) Aspartate Amino Transf (AST/SGOT) 36 U/L (15-37) Alanine Aminotransferase (ALT/SGPT) 64 U/L (14-59) Alkaline Phosphatase 77 U/L (46-116) Total Protein 4.8 g/dL (6.4-8.2) Albumin 1.9 g/dL (3.4-5.0) Albumin/Globulin Ratio 0.7 (1.0-1.7) Test 02/26/21 21:42 02/27/21 07:43 Glucose (Fingerstick) 168 mg/dL (70-99) 126 mg/dL (70-99) Laboratory Tests Test 02/26/21 16:23 02/26/21 21:42 02/27/21 07:43 Glucose (Fingerstick) 236 mg/dL (70-99) 168 mg/dL (70-99) 126 mg/dL (70-99) Problem List poor mobility, would continue PT would rec calhoun removal --if ok with renal, NA has been high--waiting on lab draw today, Justicifation of Admission Dx: Justifications for Admission: Justification of Admission Dx: Yes RAO PATTON MD 02/28/21 1232: SURGICAL PROGRESS NOTE Assessment/Plan agree with above LELA MARIE PRESS WRITER Feb 27, 2021 11:29 RAO PATTON MD Feb 28, 2021 12:32
--- NOTE | 2021-02-27 12:24 | PDOC ---
[employer] PROGRESS NOTE Date of Service DOS: DATE: 02/27/21 TIME: 12:23 Chief Complaint Chief Complaint A/P: Abdominal pain S/p ventricular hernia repair 02/13 Post-op AFIB/flutter with RVR - SR with PACs. on lovenox ppx dosing and IV metoprolol Acute respiratory failure - likely secondary to acute COPD and acute diastolic CHF worsened by Afib as above Acute diastolic CHF - cardiology following, Echo with no reduction in EF Hypertensive urgency - seems to be due to pain Anemia - hgb drift to 8.2 H/o breast CA s/p radiation Hyperkalemia - resolved Encephalopathy - remains lethargic Chronic obstructive pulmonary disease, unknown FEV1 Hypernatremia -nephrology following History of Present Illness History of Present Illness Ms Dyson is a 75yo female w/ PMHx rheumatoid arthritis, depression, hypertension, breast cancer and prior colectomy who was admitted for a large ventral hernia repair which she underwent on February 13. Had done really well after surgery initially she was actually planning to start trialing liquids, but was transferred to ICU for concern for sepsis and new onset A. fib with RVR requiring a Cardizem drip, cardiology, Infectious Disease and pulmonary were consulted. Patient started on broad-spectrum antibiotics. Pulmonary following. 02/16: ICU today. Her condition has significantly improved since last night. She is awake alert and oriented able to answer questions says pain is under control. Blood pressure holding steady. Remains on Cardizem drip. Continue antibiotics today. Requesting to drink if she can, will defer this decision to surgery. 02/17: She is complaining about some shortness of breath but is feeling comfortable. We will try 1 dose of Lasix today based upon chest x-ray. 02/18: Evaluated at bedside. Patient resting in bed. Appears to be in normal sinus rhythm. No major clinical changes otherwise. 02/19: Evaluated at bedside. Patient resting in bed pursed lip breathing D/W [employer]/ [employer], ABG pending d/w in room k 5.8 on tpn pharmacy to adjust k in tpn 02/20: Evaluated at bedside. D/W [employer]/ [employer], ABG pending d/w in room k 5.8 on tpn pharmacy to adjust k in tpn 02/21: Transferred from ICU overnight. Still very confused. Family says she said hello. Moving all 4 extremities. Afebrile. NA 156. WBC 19.2, Hb 8.1. D/w family bedside. 02/22: NA 158. Afebrile. Asking for coffee. Still requiring 3L NCO2. D/w surgery given her deconditioning and need for IV nutrition she would need likely referral to LTACH. 02/23: NA 162. Afebrile. More alert. Asking for food. No BM. Very weak, d/w beside to consider LTACH. Chest radiograph with PICC crossing midline. Diet advanced 02/24: Afebrile overnight. Feeling a little worse. She is taking p.o. had some juice had a bowel movement. Chest radiograph revealed PICC has become malposi tioned. IV on hold. Afebrile. NA 137. Feels a little hot. Has been upset about PICC and making sure she is getting her medications. Reassured she can appropriately medicated by mouth. She is asking for some cold to drink. Noted she still on thickened liquids 02/26 Patient evaluated at bedside. Still frustrated about PICC line, imaging shows it is in the left subclavian. From medical standpoint patient with hypernatremia of 162 today. Still mentating well. Nephrology following. Defer rest to primary surgical team 02/27 Patient evaluated at bedside, she does remain very weak still. 6 min walk ordered but question if she will be able to complete. Labs from today pending still. Vitals/I&O Vitals/I&O: Vital Signs Date Time Temp Pulse Resp B/P (MAP) Pulse Ox O2 Delivery O2 Flow Rate FiO2 02/27/21 11:38 98 Nasal Cannula 2.0 02/27/21 11:00 98.9 78 16 160/67 (98) 98.9 I & O 02/26/21 02/26/21 02/27/21 15:00 23:00 07:00 Intake Total 460 ml 360 ml 180 ml Output Total 612 ml 570 ml Balance 460 ml -252 ml -390 ml Physical Exam Physical Exam: GENERAL: Sleepy but arousable HEENT: Normocephalic, atraumatic. Anicteric. Dry mouth NECK: Supple. No JVD. LUNGS: Rales present + for wheezing HEART: Irregularly irregular no murmurs appreciated ABDOMEN: Obese , distended binder in place, not taken down, intact dry Hypoactive bowel sounds [address] EXTREMITIES mild edema present, no cyanosis MUSCULOSKELETAL: No joint swelling. No decrease in range of motion. CENTRAL NERVOUS SYSTEM: Sleepy, arousable PSYCHIATRIC: Cooperative, sleepy PICC line clean General: Cooperative, No acute distress Heart: Regular rate Lungs: Clear Abdomen: Soft, Other (drains in place) Extremities: No edema, Normal pulses Skin: No significant lesion Labs Labs: Laboratory Tests Test 02/26/21 16:23 02/26/21 21:42 02/27/21 07:43 02/27/21 11:30 Glucose (Fingerstick) 236 mg/dL (70-99) 168 mg/dL (70-99) 126 mg/dL (70-99) 155 mg/dL (70-99) Comment Review of Relevant I have reviewed the following items keely (where applicable) has been applied. Medications: Current Medications Medications (Trade) Dose Ordered Sig/Isael Route PRN Reason Start Time Stop Time Status Last Admin Dose Admin Alteplase, Recombinant (Cathflo For Central Catheter Clearance) 1 mg 1X ONCE INT CAT 02/26/21 17:00 02/26/21 17:01 DC 02/26/21 17:50 Justifications for Admission Other Justification BENY HUGGINS MD Feb 27, 2021 12:24
[2021-02-27] MEDS: oxyCODONE/APAP 5/325 1 TAB TABLET PO PRN (13:48)
[2021-02-27] MEDS: NYSTATIN 100,000 UNITS/ML 5 ML ORAL.SUSP. SWSW SCH ×3 (13:48→21:27)
--- NOTE | 2021-02-27 14:26 | PDOC ---
CLIFFORD MERLOS [employer] WORK[employer] SUPERVISOR 02/27/21 1426: CARDIO Progress Notes Date and Time Date of Service 02/27/21 Time of Evaluation 1141 Subjective Subjective: No Chest Pain, No shortness of breath, No Palpitations Vitals Vitals Vital Signs Date Time Temp Pulse Resp B/P (MAP) Pulse Ox O2 Delivery O2 Flow Rate FiO2 02/27/21 13:48 82 02/27/21 11:38 98 Nasal Cannula 2.0 02/27/21 11:00 98.9 16 160/67 (98) 98.9 Weight Weight [ ] Input and Output Intake and Output Intake and Output 02/27/21 07:00 Intake Total 1000 ml Output Total 1182 ml Balance -182 ml Intake Oral 1000 ml Output Urine Total 1150 ml Drainage Total 32 ml Laboratory Labs Laboratory Tests Test 02/26/21 16:23 02/26/21 21:42 02/27/21 07:43 02/27/21 11:30 Glucose (Fingerstick) 236 mg/dL (70-99) 168 mg/dL (70-99) 126 mg/dL (70-99) 155 mg/dL (70-99) Physical Exam HEENT: Neck Supple W Full Motion Chest: Symmetric LUNGS: Other (diminished bases) Heart: RRR (SR) Abdomen: Other (obese; abdominal incision) Extremities: No Edema Neurology: alert, oriented, follow commands Assessment Assessment 1. S/p ventricular hernia repair 02/13: Continue postop care per general surgery 2. Post-op AFIB/flutter with RVR; maintaining SR with PACs and PVCs. Patient currently poor candidate for long-term anticoagulation secondary to anemia. 3. Acute respiratory failure with AECOPD, CHF. 4. Acute diastolic CHF; echo with preserved LV systolic function, appears compensated 5. Hypertensive urgency: better controlled, but remains slightly elevated 6. Anemia, thrombocytopenia 7. H/o breast CA s/p radiation 8. Hyperkalemia; resolved 9. Encephalopathy: resolved 10. Hypernatremia: D5. as per nephrology Recommendations Continue Cardizem for rate control On Lovenox for DVT prophylaxis presently. Will hold off on increasing to treatment dosing at this time given downward trend in hgb. Monitor hgb. Transfuse as warranted Continue post-op management per surgical team Increase ambulation, OT/PT Justicifation of Admission Dx: Justifications for Admission: Justification of Admission Dx: Yes ALICE LOVE MD 02/27/21 1620: CARDIO Progress Notes Assessment Assessment Patient seen and examined. Agree with COMMERCIAL LOAN COLLECTION OFFICER's assessment and plan. Postoperative atrial fibrillation, presently maintaining sinus rhythm She is a poor candidate for long-term anticoagulation Acute on chronic diastolic heart failure better compensated Continue postop care per general surgery CLIFFORD MERLOS APRN Feb 27, 2021 14:26 ALICE LOVE MD Feb 27, 2021 16:20
--- NOTE | 2021-02-27 14:47 | NUR ---
SS following up with discharge planning. SS reviewed pt chart and discussed with pt RN. Pt is currently requiring oxygen at two liters nasal canula. COVID19 negative. Pt has no home oxygen. Pt on PO diet. PT/OT ordered. PT recommended care home unit. Pt's family declining care home unit at this time and requesting home with [facility], ; fax [phone]. Nephrology, surgery, and cardiology following. Six minute walk needed prior to discharge to assess oxygen needs. SS will continue to follow for discharge planning.
[2021-02-27 14:50] LABS: ALBUMIN 1.8 g/dL (3.4-5.0); ALBUMIN/GLOBULIN RATIO 0.6 (1.0-1.7); CALCIUM 6.8 mg/dL (8.5-10.1); CREATININE 0.7 mg/dL (0.6-1.0); GFR 81.1; POTASSIUM 4.9 mmol/L (3.5-5.1); TOTAL BILIRUBIN 0.6 mg/dL (0.2-1.0); TOTAL PROTEIN 4.9 g/dL (6.4-8.2)
[2021-02-27 15:00] VITALS: BP 147/64
[2021-02-27] MEDS: ENOXAPARIN 40 MG/0.4 ML SYRINGE. SQ SCH (17:36)
[2021-02-27 19:15] VITALS: BP 163/70
--- NOTE | 2021-02-27 20:00 | NUR ---
Assessment completed vss poc explained pt denied pain at this time pt repositioned call light placed in reach will resume care and continue to monitor pt.
[2021-02-27] MEDS: INSULIN GLARGINE SYRINGE. SQ SCH (21:28)
[2021-02-27 22:50] VITALS: BP 153/69
[2021-02-28] VITALS (12 sets, daily range): BP systolic 107–185; BP diastolic 49–76
[2021-02-28] MEDS: IV DEXTROSE 5% 1,000 ML IV SCH (05:31)
[2021-02-28] MEDS: NITROGLYCERIN OINT 1 GM PACKET. TP SCH ×3 (05:32→18:15)
[2021-02-28 05:58] LABS: HEMATOCRIT 20.8 % (36.0-47.0); HEMOGLOBIN 6.7 g/dL (12.0-15.5)
[2021-02-28 06:01] LABS: CALCIUM 6.6 mg/dL (8.5-10.1); CREATININE 0.7 mg/dL (0.6-1.0); GFR 81.1; POTASSIUM 4.4 mmol/L (3.5-5.1)
[2021-02-28] MEDS: IPRATROPIUM BROMIDE 0.5 MG/2.5 ML NEBU. NEB SCH ×4 (07:19→20:32)
[2021-02-28] MEDS: BUDESONIDE 0.5 MG/2 ML NEBU. NEB SCH ×2 (07:19→20:32)
[2021-02-28] MEDS: INSULIN LISPRO 300 UNITS/3 ML VIAL. SQ SCH ×4 (07:30→20:18)
[2021-02-28] MEDS: LACTOBACILLUS RHAMNOSUS GG 1 CAPSULE. PO SCH ×2 (08:24→20:17)
[2021-02-28] MEDS: FAMOTIDINE 20 MG TABLET. PO SCH ×2 (08:24→20:18)
[2021-02-28] MEDS: predniSONE 20 MG TABLET PO SCH (08:24)
[2021-02-28] MEDS: LISINOPRIL 20 MG TABLET PO SCH (08:25)
[2021-02-28] MEDS: NYSTATIN 100,000 UNITS/ML 5 ML ORAL.SUSP. SWSW SCH ×5 (08:25→20:17)
[2021-02-28] MEDS: ACETAMINOPHEN 325 MG TABLET. PO PRN (08:26)
--- NOTE | 2021-02-28 08:53 | PDOC ---
PULMONARY PROGRESS NOTES DATE: 02/28/21 TIME: 08:53 Subjective Patient very weak, sitting up in the chair. Patient is with no new respiratory complaint Vitals Vital Signs Date Time Temp Pulse Resp B/P (MAP) Pulse Ox O2 Delivery O2 Flow Rate FiO2 02/28/21 08:25 85 140/61 02/28/21 07:19 98 Nasal Cannula 2.0 02/28/21 03:00 98.8 18 98.8 Comments ros as mentioned above other sys otherwise neg General: Alert, No acute distress Lungs: Clear Cardiovascular: S1 Abdomen: Soft, Other (Tender in the lower quadrants) Extremities: Other (Marked edema) Skin: Warm Labs Laboratory Tests Test 02/26/21 09:30 02/26/21 11:18 02/26/21 16:23 02/26/21 21:42 White Blood Count 18.5 x10^3/uL (4.0-11.0) Red Blood Count 2.51 x10^6/uL (3.50-5.40) Hemoglobin 7.4 g/dL (12.0-15.5) Hematocrit 23.8 % (36.0-47.0) Mean Corpuscular Volume 95 fL (79-100) Mean Corpuscular Hemoglobin 29 pg (25-35) Mean Corpuscular Hemoglobin Concent 31 g/dL (31-37) Red Cell Distribution Width 16.8 % (11.5-14.5) Platelet Count 134 x10^3/uL (140-400) Neutrophils (%) (Auto) 89 % (31-73) Lymphocytes (%) (Auto) 4 % (24-48) Monocytes (%) (Auto) 6 % (0-9) Eosinophils (%) (Auto) 1 % (0-3) Basophils (%) (Auto) 0 % (0-3) Neutrophils # (Auto) 16.4 x10^3/uL (1.8-7.7) Lymphocytes # (Auto) 0.8 x10^3/uL (1.0-4.8) Monocytes # (Auto) 1.1 x10^3/uL (0.0-1.1) Eosinophils # (Auto) 0.2 x10^3/uL (0.0-0.7) Basophils # (Auto) 0.0 x10^3/uL (0.0-0.2) Sodium Level 162 mmol/L (136-145) Potassium Level 4.7 mmol/L (3.5-5.1) Chloride Level 127 mmol/L (98-107) Carbon Dioxide Level 29 mmol/L (21-32) Anion Gap 6 (6-14) Blood Urea Nitrogen 30 mg/dL (7-20) Creatinine 0.8 mg/dL (0.6-1.0) Estimated GFR (Cockcroft-Gault) 69.6 BUN/Creatinine Ratio 38 (6-20) Glucose Level 167 mg/dL (70-99) Calcium Level 7.5 mg/dL (8.5-10.1) Total Bilirubin 0.5 mg/dL (0.2-1.0) Aspartate Amino Transf (AST/SGOT) 36 U/L (15-37) Alanine Aminotransferase (ALT/SGPT) 64 U/L (14-59) Alkaline Phosphatase 77 U/L (46-116) Total Protein 4.8 g/dL (6.4-8.2) Albumin 1.9 g/dL (3.4-5.0) Albumin/Globulin Ratio 0.7 (1.0-1.7) Glucose (Fingerstick) 157 mg/dL (70-99) 236 mg/dL (70-99) 168 mg/dL (70-99) Test 02/27/21 07:43 02/27/21 11:30 02/27/21 14:25 02/27/21 17:41 Glucose (Fingerstick) 126 mg/dL (70-99) 155 mg/dL (70-99) 226 mg/dL (70-99) Sodium Level 144 mmol/L (136-145) Potassium Level 4.9 mmol/L (3.5-5.1) Chloride Level 111 mmol/L (98-107) Carbon Dioxide Level 25 mmol/L (21-32) Anion Gap 8 (6-14) Blood Urea Nitrogen 17 mg/dL (7-20) Creatinine 0.7 mg/dL (0.6-1.0) Estimated GFR (Cockcroft-Gault) 81.1 BUN/Creatinine Ratio 24 (6-20) Glucose Level 207 mg/dL (70-99) Calcium Level 6.8 mg/dL (8.5-10.1) Total Bilirubin 0.6 mg/dL (0.2-1.0) Aspartate Amino Transf (AST/SGOT) 37 U/L (15-37) Alanine Aminotransferase (ALT/SGPT) 63 U/L (14-59) Alkaline Phosphatase 81 U/L (46-116) Total Protein 4.9 g/dL (6.4-8.2) Albumin 1.8 g/dL (3.4-5.0) Albumin/Globulin Ratio 0.6 (1.0-1.7) Test 02/27/21 20:36 02/28/21 05:35 02/28/21 07:47 Glucose (Fingerstick) 185 mg/dL (70-99) 116 mg/dL (70-99) White Blood Count 16.0 x10^3/uL (4.0-11.0) Hemoglobin 6.7 g/dL (12.0-15.5) Hematocrit 20.8 % (36.0-47.0) Platelet Count 132 x10^3/uL (140-400) Sodium Level 139 mmol/L (136-145) Potassium Level 4.4 mmol/L (3.5-5.1) Chloride Level 107 mmol/L (98-107) Carbon Dioxide Level 26 mmol/L (21-32) Anion Gap 6 (6-14) Blood Urea Nitrogen 12 mg/dL (7-20) Creatinine 0.7 mg/dL (0.6-1.0) Estimated GFR (Cockcroft-Gault) 81.1 Glucose Level 98 mg/dL (70-99) Calcium Level 6.6 mg/dL (8.5-10.1) Laboratory Tests Test 02/27/21 11:30 02/27/21 14:25 02/27/21 17:41 02/27/21 20:36 Glucose (Fingerstick) 155 mg/dL (70-99) 226 mg/dL (70-99) 185 mg/dL (70-99) Sodium Level 144 mmol/L (136-145) Potassium Level 4.9 mmol/L (3.5-5.1) Chloride Level 111 mmol/L (98-107) Carbon Dioxide Level 25 mmol/L (21-32) Anion Gap 8 (6-14) Blood Urea Nitrogen 17 mg/dL (7-20) Creatinine 0.7 mg/dL (0.6-1.0) Estimated GFR (Cockcroft-Gault) 81.1 BUN/Creatinine Ratio 24 (6-20) Glucose Level 207 mg/dL (70-99) Calcium Level 6.8 mg/dL (8.5-10.1) Total Bilirubin 0.6 mg/dL (0.2-1.0) Aspartate Amino Transf (AST/SGOT) 37 U/L (15-37) Alanine Aminotransferase (ALT/SGPT) 63 U/L (14-59) Alkaline Phosphatase 81 U/L (46-116) Total Protein 4.9 g/dL (6.4-8.2) Albumin 1.8 g/dL (3.4-5.0) Albumin/Globulin Ratio 0.6 (1.0-1.7) Test 02/28/21 05:35 02/28/21 07:47 White Blood Count 16.0 x10^3/uL (4.0-11.0) Hemoglobin 6.7 g/dL (12.0-15.5) Hematocrit 20.8 % (36.0-47.0) Platelet Count 132 x10^3/uL (140-400) Sodium Level 139 mmol/L (136-145) Potassium Level 4.4 mmol/L (3.5-5.1) Chloride Level 107 mmol/L (98-107) Carbon Dioxide Level 26 mmol/L (21-32) Anion Gap 6 (6-14) Blood Urea Nitrogen 12 mg/dL (7-20) Creatinine 0.7 mg/dL (0.6-1.0) Estimated GFR (Cockcroft-Gault) 81.1 Glucose Level 98 mg/dL (70-99) Calcium Level 6.6 mg/dL (8.5-10.1) Glucose (Fingerstick) 116 mg/dL (70-99) Medications Active Scripts Medications Dose Route/Sig Max Daily Dose Days Date Category Vitamin B12 (Cyanocobalamin (Vitamin B-12)) 2,500 Mcg Tablet 500 Mg PO BID 02/15/21 Reported Nexium Capsule (Esomeprazole Magnesium) 40 Mg Capsule. 1 Cap PO BID 02/15/21 Reported Calcium 600 + Vit D 800 Tab (Calcium Carbonate/Vitamin D3) 1 Each Tablet 1 Tab PO BID 30 02/15/21 Reported Benefiber (Wheat Dextrin) 1 Each Powd.pack 1 Each PO DAILY 02/15/21 Reported Lisinopril 10 Mg Tablet 1 Tab PO DAILY 02/15/21 Reported Leflunomide 10 Mg Tablet 10 Mg PO DAILY 02/15/21 Reported Prednisone 2.5 Mg Tablet 5 Mg PO DAILY 02/15/21 Reported Metoprolol Tartrate 25 Mg Tablet 1 Tab PO DAILY 02/15/21 Reported Hydrocodone-Apap 5-325 (Hydrocodone Bit/Acetaminophen) 1 Tab Tablet 1 Tab PO PRN BID PRN 02/15/21 Reported Gabapentin 100 Mg Capsule 100 Mg PO PRN BID PRN 02/15/21 Reported Folic Acid 0.8 Mg Tablet 3 Mg PO DAILY 02/15/21 Reported Cymbalta (Duloxetine Hcl) 30 Mg Capsule.dr 1 Cap PO DAILY 02/15/21 Reported Prolia (Denosumab) 60 Mg/1 Ml Disp.syrin 1 Syr SQ [id number] 1 02/15/21 Reported Celexa (Citalopram Hydrobromide) 10 Mg Tablet 1 Tab PO DAILY 02/15/21 Reported Alprazolam 0.25 Mg Tablet 0.25 Mg PO PRN DAILY PRN 02/15/21 Reported Impression . IMPRESSION: 1. Acute hypoxemic respiratory failure, multifactorial. 2. Abnormal x-ray, compatible with effusion, possibly congestive heart failure. Possible pneumonia. She does have underlying interstitial lung disease likely related to rheumatoid arthritis. 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 A. fib with rapid ventricular response, controlled 4. Leukocytosis. 5. Fever. resolved 6. Status post large ventral hernia repair on 02/13. 7. Rheumatoid arthritis with previously diagnosed as interstitial lung disease. 8. Hypertension. 9. Breast cancer, status post radiation. 10. Tobacco dependence, in remission. 11. Chronic obstructive pulmonary disease, unknown FEV1 12. Multifactorial encephalopathy/delirium/toxic 13. Hyponatremia, 14. Debility, weakness Plan . Updated 02/27 Continue current support Antibiotics per ID Up to chair Oxygen supplementation PT OT updated 02/26 continue oxygen supplementation Avoid narcotics Antibiotics per ID Discussed with ASHLY MCDONOUGH MD Feb 28, 2021 08:53
--- NOTE | 2021-02-28 10:02 | PDOC ---
DATE OF SERVICE DATE: 02/28/21 TIME: 10:01 SUBJECTIVE ROS Stable , No SOB at rest Fever + OBJECTIVE Vital Signs Vital Signs Date Time Temp Pulse Resp B/P (MAP) Pulse Ox O2 Delivery O2 Flow Rate FiO2 02/28/21 08:25 85 140/61 02/28/21 08:00 Nasal Cannula 1.0 02/28/21 07:19 98 02/28/21 03:00 98.8 18 98.8 I & 0 Intake and Output 02/28/21 07:00 Intake Total 293 ml Output Total 1315 ml Balance -1022 ml Intake Oral 293 ml Output Urine Total 1200 ml Drainage Total 115 ml # Bowel Movements 1 PHYSICAL EXAM Physical Exam GENERALNAD HEENT: Normocephalic, atraumatic. Anicteric. OM dry NECK: Supple. LUNGS: Decreased at bases, Non labored ABD Soft, drains serosang, dressing to incision EXT Mild LE edema , swelling + hands HEART: S1S2 NEURO : grossly nonfocal. Generalized weakness Barraza in place , No CVA or SP tenderness DIAGNOSIS/ASSESSMENT Assessment & Plan Hyper Natremia- suspect 2/2 Overdiuresis and Poor PO intake . Resolved now with Hypotonic IVF , dc IVF . Monitor HyperKalemia - Resolved K ,Monitor MARILEE at presentation- Cr 1.3 resolved .BUN in 60's stable, likely sec to steroids UOP improved Anemia- slow decreasing Hgb, defer to primary . Today < 7 Acute hypoxemic respiratory failure, multifactorial- Abnormal x-ray A. fib with rapid ventricular response Status post large ventral hernia repair on 02/13. awaiting return of bowel function, still NPO . GS following Hypertension BP high, card on board Will sign off COMMENT/RELEVANT DATA Meds Current Medications Medications (Trade) Dose Ordered Sig/Isael Start Time Stop Time Status Last Admin Dose Admin Acetaminophen (Tylenol) 650 mg PRN Q6HRS PRN 02/24/21 14:45 02/28/21 08:26 650 MG Albuterol Sulfate (Ventolin Neb Soln) 2.5 mg PRN Q4HRS PRN 02/18/21 06:45 02/25/21 04:38 2.5 MG Alteplase, Recombinant (Cathflo For Central Catheter Clearance) 1 mg 1X ONCE 02/26/21 17:00 02/26/21 17:01 DC 02/26/21 17:50 1 MG Amoxicillin/ Clavulanate Potassium (Augmentin 875/ 125mg) 1 tab BID 02/24/21 11:30 02/27/21 09:40 DC 02/27/21 08:42 1 TAB Budesonide (Pulmicort) 0.5 mg RTBID 02/18/21 20:00 02/28/21 07:19 0.5 MG Cefazolin Sodium (Ancef) 1 gm 1X PREOP PRN 02/13/21 10:00 02/13/21 15:08 DC Cefazolin Sodium/ Dextrose 0 ml @ As Directed STK-MED ONCE 02/13/21 09:45 02/13/21 09:45 DC Cefepime HCl (Maxipime) 2 gm Q12HR 02/16/21 12:00 02/20/21 08:33 DC 02/19/21 21:02 2 GM Dexamethasone Sodium Phosphate (Decadron) 4 mg STK-MED ONCE 02/13/21 09:36 02/13/21 09:36 DC Dextrose 1,000 ml @ 150 mls/hr Q6H40M 02/21/21 12:45 02/28/21 05:31 150 MLS/HR Dextrose (Dextrose 50%-Water Syringe) 12.5 gm PRN Q15MIN PRN 02/18/21 12:00 Digoxin (Lanoxin) 500 mcg 1X ONCE 02/19/21 14:45 02/19/21 14:46 DC 02/19/21 15:15 500 MCG Diltiazem HCl (Cardizem 24hr Cd) 240 mg DAILY 02/24/21 09:00 02/28/21 08:25 240 MG Diltiazem HCl 125 mg/Sodium Chloride 125 ml @ 5 mls/hr CONT PRN 02/15/21 21:30 02/23/21 12:24 DC 02/23/21 01:59 10 MLS/HR Enalaprilat (Vasotec Inj) 1.25 mg Q6HRS 02/22/21 12:00 02/23/21 12:24 DC 02/23/21 06:28 1.25 MG Enoxaparin Sodium (Lovenox 40mg Syringe) 40 mg Q24H 02/13/21 18:00 02/27/21 17:36 40 MG Epinephrine (S2 Racepinephrine) 0.5 ml 1X ONCE 02/17/21 14:15 02/17/21 14:16 DC 02/17/21 15:29 0.5 ML Famotidine (Pepcid Vial) 20 mg QHS 02/19/21 21:00 02/24/21 14:34 DC 02/22/21 21:15 20 MG Famotidine (Pepcid) 20 mg BID 02/24/21 21:00 02/28/21 08:24 20 MG Fentanyl Citrate (Fentanyl 2ml Vial) 25 mcg PRN Q2HRS PRN 02/21/21 10:15 02/26/21 22:03 25 MCG Furosemide (Lasix) 40 mg DAILY 02/19/21 11:45 02/21/21 12:57 DC 02/21/21 08:37 40 MG Glycopyrrolate (Robinul) 1 mg STK-MED ONCE 02/13/21 16:33 02/13/21 16:33 DC Hydralazine HCl (Apresoline Inj) 10 mg 1X ONCE 02/21/21 14:15 02/21/21 17:30 DC 02/21/21 14:43 10 MG Hydromorphone HCl (Dilaudid) 0.2 mg PRN Q4HRS PRN 02/20/21 08:30 02/20/21 09:05 DC Info (FLU VACCINE SCREEN per RX) 1 each PRN DAILY PRN 02/14/21 23:30 Cancel Info (Tpn Per Pharmacy) 1 each PRN DAILY PRN 02/22/21 13:30 02/23/21 12:26 DC 02/22/21 15:04 1 EACH Insulin Glargine (Lantus Syringe) 8 unit QHS 02/20/21 21:00 02/27/21 21:28 8 UNIT Insulin Human Lispro (HumaLOG) 0-7 UNITS QIDACHS 02/23/21 17:15 02/27/21 17:47 4 UNITS Ipratropium [place] (Atrovent) 0.5 mg RTQID 02/16/21 08:00 02/28/21 07:19 0.5 MG Ketorolac Tromethamine (Toradol 15mg Vial) 15 mg 1X ONCE 02/14/21 09:15 02/14/21 09:19 DC 02/14/21 09:33 15 MG Labetalol HCl (Normodyne Iv Push) 20 mg PRN Q2HR PRN 02/21/21 12:15 Lactobacillus Rhamnosus (Culturelle) 1 cap BID 02/24/21 21:00 02/28/21 08:24 1 CAP Lidocaine HCl (Lidocaine Pf 2% Vial) 5 ml STK-MED ONCE 02/13/21 09:36 02/13/21 09:36 DC Linezolid/Dextrose 300 ml @ 300 mls/hr Q12HR 02/16/21 12:00 02/19/21 10:34 DC 02/19/21 09:22 300 MLS/HR Lisinopril (Prinivil) 20 mg DAILY 02/23/21 12:30 02/28/21 08:25 20 MG Lorazepam (Ativan Inj) 1 mg PRN Q4HRS PRN 02/17/21 11:15 02/18/21 14:43 DC 02/18/21 14:31 1 MG Methylprednisolone Sodium Succinate (SOLU-Medrol 40MG VIAL) 60 mg Q8HRS 02/20/21 14:00 02/23/21 12:23 DC 02/23/21 06:31 60 MG Methylprednisolone Sodium Succinate (SOLU-Medrol 125MG VIAL) 60 mg DAILY 02/24/21 09:00 02/24/21 14:34 DC Metoprolol Tartrate (Lopressor Vial) 5 mg Q6HRS 02/19/21 18:00 02/23/21 13:54 DC 02/23/21 06:27 5 MG Metronidazole 100 ml @ 100 mls/hr Q12HR 02/15/21 22:00 02/19/21 10:34 DC 02/19/21 09:21 100 MLS/HR Morphine Sulfate (Morphine Sulfate) 1 mg 1X ONCE 02/17/21 11:15 02/17/21 11:16 DC 02/17/21 11:20 1 MG Naloxone HCl (Narcan) 0.4 mg PRN Q2MIN PRN 02/13/21 17:15 02/19/21 08:26 0.4 MG Neostigmine [place] (Neostigmine Methylsulfate) 5 mg STK-MED ONCE 02/13/21 16:33 02/13/21 16:33 DC Nitroglycerin (Nitro-Bid Oint) 1 inch Q6HRS 02/20/21 13:00 02/28/21 05:32 1 INCH Nystatin (Nystatin Oral Susp) 5 ml [id number] 02/27/21 13:00 02/28/21 08:25 5 ML Ondansetron HCl (Zofran) 4 mg PRN Q6HRS PRN 02/13/21 17:15 02/22/21 15:32 4 MG Oxycodone/ Acetaminophen (Percocet 5/325) 1 tab PRN Q6HRS PRN 02/25/21 10:30 02/27/21 13:48 1 TAB Phenol (Chloraseptic) 1 spray PRN Q2HR PRN 02/25/21 09:00 02/25/21 09:30 1 SPRAY Piperacillin Sod/ Tazobactam Sod 3.375 gm/Sodium Chloride 50 ml @ 100 mls/hr Q6HRS 02/21/21 09:00 02/24/21 10:07 DC 02/23/21 13:10 100 MLS/HR Potassium Phosphate 15 mmol/ Sodium Chloride 105 ml @ 52.5 mls/hr 1X ONCE 02/16/21 15:00 02/16/21 16:59 DC 02/16/21 15:43 52.5 MLS/HR Potassium Phosphate 30 mmol/ Multivitamins 10 ml/Zinc/Copper/ Manganese/ Selenium 1 ml/ Total Parenteral Nutrition/Amino Acids/Dextrose/ Fat Emulsion Intravenous 1,440 ml @ 60 mls/hr TPN CONT 02/22/21 22:00 02/23/21 21:59 DC Potassium Chloride (Klor-Con) 40 meq 1X ONCE 02/25/21 15:30 02/25/21 15:31 DC 02/25/21 16:54 40 MEQ Prednisone (Prednisone) 20 mg DAILY 02/24/21 15:30 02/28/21 08:24 20 MG Prochlorperazine Edisylate (Compazine) 5 mg PACU PRN PRN 02/13/21 06:00 02/13/21 21:00 DC Propofol (Diprivan) 200 mg STK-MED ONCE 02/13/21 09:36 02/13/21 09:36 DC Ringer's Solution 1,000 ml @ 30 mls/hr Q24H 02/13/21 06:00 02/13/21 18:00 DC Rocuronium [place] (Zemuron) 50 mg STK-MED ONCE 02/13/21 13:53 02/13/21 13:54 DC Sodium Acetate 90 meq/Sodium Phosphate 20 mmol/ Potassium Chloride 30 meq/ Potassium Phosphate 20 mmol/ Multivitamins 10 ml/Zinc/Copper/ Manganese/ Selenium 1 ml/ Total Parenteral Nutrition/Amino Acids/Dextrose/ Fat Emulsion Intravenous 1,080 ml @ 45 mls/hr TPN CONT 02/18/21 22:00 02/19/21 21:59 DC 02/18/21 21:35 45 MLS/HR Sodium Chloride (Normal Saline Flush) 3 ml QSHIFT PRN 02/13/21 17:15 Sodium Chloride 90 meq/Potassium Chloride 50 meq/ Potassium Phosphate 20 mmol/ Magnesium Sulfate 10 meq/Calcium Gluconate 10 meq/ Multivitamins 10 ml/Zinc/Copper/ Manganese/ Selenium 1 ml/ Total Parenteral Nutrition/Amino Acids/Dextrose/ Fat Emulsion Intravenous 1,296 ml @ 54 mls/hr TPN CONT 02/16/21 22:00 02/17/21 21:59 DC 02/16/21 21:24 54 MLS/HR Sodium Chloride 90 meq/Sodium Phosphate 10 mmol/ Potassium Chloride 50 meq/ Potassium Phosphate 20 mmol/ Magnesium Sulfate 5 meq/ Multivitamins 10 ml/Zinc/Copper/ Manganese/ Selenium 1 ml/ Total Parenteral Nutrition/Amino Acids/Dextrose/ Fat Emulsion Intravenous 1,080 ml @ 45 mls/hr TPN CONT 02/17/21 22:00 02/18/21 21:59 DC 02/17/21 21:12 45 MLS/HR Sodium Phosphate 15 mmol/Sodium Chloride 105 ml @ 105 mls/hr 1X ONCE 02/18/21 10:00 02/18/21 10:59 DC 02/18/21 09:20 105 MLS/HR Sodium Phosphate 20 mmol/Potassium Phosphate 20 mmol/ Multivitamins 10 ml/Zinc/Copper/ Manganese/ Selenium 1 ml/ Total Parenteral Nutrition/Amino Acids/Dextrose/ Fat Emulsion Intravenous 1,320 ml @ 55 mls/hr TPN CONT 02/21/21 22:00 02/22/21 21:59 DC Sodium Phosphate 20 mmol/Sodium Chloride 256.6667 ml @ 64.167 m... 1X ONCE 02/17/21 09:15 02/17/21 13:14 UNV Sodium Phosphate 40 mmol/ Multivitamins 10 ml/Zinc/Copper/ Manganese/ Selenium 1 ml/ Total Parenteral Nutrition/Amino Acids/Dextrose/ Fat Emulsion Intravenous 1,080 ml @ 45 mls/hr TPN CONT 02/20/21 22:00 02/21/21 12:43 DC 02/20/21 22:45 45 MLS/HR Succinylcholine Chloride (Anectine) 200 mg STK-MED ONCE 02/13/21 09:38 02/13/21 09:38 DC Throat Lozenges (Cepacol Sore Throat Lozenge) 1 macario PRN Q2HRS PRN 02/24/21 14:45 02/25/21 09:25 1 MACARIO Vancomycin HCl (Vanco Per Pharmacy) 1 each PRN DAILY PRN 02/15/21 21:30 02/16/21 11:17 DC 02/16/21 03:40 1 EACH Vancomycin HCl (Vancomycin Trough Level) 1 each 1X ONCE 02/17/21 22:30 02/16/21 11:17 DC Vancomycin HCl 1.75 gm/Sodium Chloride 500 ml @ 250 mls/hr 1X ONCE 02/15/21 22:00 02/15/21 23:59 DC 02/15/21 23:00 250 MLS/HR Vancomycin HCl 1 gm/Sodium Chloride 250 ml @ 250 mls/hr Q24H 02/16/21 23:00 02/16/21 11:16 DC Lab Laboratory Tests Test 02/27/21 11:30 02/27/21 14:25 02/27/21 17:41 02/27/21 20:36 Glucose (Fingerstick) 155 mg/dL (70-99) 226 mg/dL (70-99) 185 mg/dL (70-99) Sodium Level 144 mmol/L (136-145) Potassium Level 4.9 mmol/L (3.5-5.1) Chloride Level 111 mmol/L (98-107) Carbon Dioxide Level 25 mmol/L (21-32) Anion Gap 8 (6-14) Blood Urea Nitrogen 17 mg/dL (7-20) Creatinine 0.7 mg/dL (0.6-1.0) Estimated GFR (Cockcroft-Gault) 81.1 BUN/Creatinine Ratio 24 (6-20) Glucose Level 207 mg/dL (70-99) Calcium Level 6.8 mg/dL (8.5-10.1) Total Bilirubin 0.6 mg/dL (0.2-1.0) Aspartate Amino Transf (AST/SGOT) 37 U/L (15-37) Alanine Aminotransferase (ALT/SGPT) 63 U/L (14-59) Alkaline Phosphatase 81 U/L (46-116) Total Protein 4.9 g/dL (6.4-8.2) Albumin 1.8 g/dL (3.4-5.0) Albumin/Globulin Ratio 0.6 (1.0-1.7) Test 02/28/21 05:35 02/28/21 07:47 White Blood Count 16.0 x10^3/uL (4.0-11.0) Hemoglobin 6.7 g/dL (12.0-15.5) Hematocrit 20.8 % (36.0-47.0) Platelet Count 132 x10^3/uL (140-400) Sodium Level 139 mmol/L (136-145) Potassium Level 4.4 mmol/L (3.5-5.1) Chloride Level 107 mmol/L (98-107) Carbon Dioxide Level 26 mmol/L (21-32) Anion Gap 6 (6-14) Blood Urea Nitrogen 12 mg/dL (7-20) Creatinine 0.7 mg/dL (0.6-1.0) Estimated GFR (Cockcroft-Gault) 81.1 Glucose Level 98 mg/dL (70-99) Calcium Level 6.6 mg/dL (8.5-10.1) Glucose (Fingerstick) 116 mg/dL (70-99) Results All relevant outside records, renal labs, imaging studies, telemetry/EKG's were reviewed. Justicifation of Admission Dx: Justifications for Admission: Justification of Admission Dx: Yes ARMINDA LYMAN MD Feb 28, 2021 10:02
[2021-02-28] MEDS: hydrALAZINE 20 MG/ML VIAL. IVP PRN (11:04)
[2021-02-28] MEDS: LISINOPRIL 10 MG TABLET PO SCH (11:30)
[2021-02-28] MEDS ORDERED: MAGNESIUM OXIDE 400 MG TABLET PO ONE (11:45)
--- NOTE | 2021-02-28 12:10 | NUR ---
SS following up with discharge planning. SS reviewed pt chart and discussed with pt RN. Pt is currently requiring oxygen at one liter nasal canula. COVID19 negative. Pt has no home oxygen. Pt getting blood today. ST evaluated and pt failed swallow today. NPO. PT/OT recommended care home unit and pt's family currently declining at this time. Pt's family wanting pt to return to home with [facility], ; fax [phone]. Benefits checked and pt has benefits for LTACH and SNU if needed. Physician and pt's RN notified. SS will continue to follow for discharge planning.
[2021-02-28] MEDS ORDERED: PIP/TAZO PER PHARMACY MC PRN (12:45)
[2021-02-28] MEDS ORDERED: VANCOMYCIN PER PHARMACY MC PRN (12:45)
[2021-02-28] MEDS ORDERED: VANCOMYCIN 1.75 GM in IV NORMAL SALINE 500ML BAG 500 ML IV ONE (13:15)
[2021-02-28] MEDS: TPN PER PHARMACY MC PRN (13:39)
[2021-02-28] MEDS: PIPERACILLIN/TAZOBACTAM 3.375 GM in IV NORMAL SALINE 50ML 50 ML IV SCH ×2 (13:42→20:45)
--- NOTE | 2021-02-28 13:43 | NUR ---
Pharmacy TPN Dosing Note S: LYNDSEY JOSUE is a 75 year old F Currently receiving Central Continuous TPN started 02/16/21 B:Pertinent PMH: NPO s/p hernia repair LABS: Sodium: 139 Potassium: 4.4 Chloride: 107 Calcium: 6.6 Corrected Calcium: 8.20 Magnesium: 2.8 CO2: 26 SCr: 0.7 Glucose: 101 Albumin: 2.0 AST: 22 ALT: 26 TPN FORMULA: TPN TYPE: Central Continuous AMINO ACIDS: 60 gm DEXTROSE: 195 gm LIPIDS: 20 gm SODIUM CHLORIDE: 90 mEq SODIUM ACETATE: -- mEq SODIUM PHOSPHATE: -- mmol POTASSIUM CHLORIDE: 50 mEq POTASSIUM ACETATE: -- mEq POTASSIUM PHOSPHATE: 13.6 mmol MAGNESIUM: 6 mEq CALCIUM: 10 mEq INSULIN: -- units MULTIPLE VITAMIN: 10 ml TRACE ELEMENTS: 1 ml(s) TPN PLAN: 02/27 LYTES HAVE NORMALIZED SINCE LAST TPN (02/22), RESTART WITH STANDARD LYTES EXCEPT MAG AT 6MEQ R: Continue TPN as above Will monitor electrolytes, glucose, and tolerance to TPN. MELISSA MOORE [facility], 02/28/21 [id number]
--- NOTE | 2021-02-28 13:49 | RAD ---
Single view of the chest. 02/28/2021 1:22 PM Indication: Reason: aspiration eval / Spl. Instructions: / History: Comparison: Chest radiograph February 23, 2021 Findings: Lung volumes are low. Basilar atelectasis appears to be present. No pneumothorax is identif ied. No definitive effusion is seen. Right upper extremity PICC line is again noted. Tip now projects over the expected region of the cavoatrial junction. Aeration of the lungs appears improved in the i nterim. IMPRESSION: 1. Low lung volumes with probable basilar atelectasis. 2. Overall aeration of the lungs appears slightly improved Electronically signed by: Malcom Perkins MD (02/28/2021 1:47 PM) [id number]
[2021-02-28] MEDS ORDERED: FUROSEMIDE 40 MG/4 ML VIAL. IVP ONE (14:00)
[2021-02-28] MEDS: ALBUTEROL SULFATE 2.5 MG/3 ML NEBU. NEB PRN (14:03)
--- NOTE | 2021-02-28 14:18 | PDOC ---
[employer] PROGRESS NOTE Date of Service DOS: DATE: 02/28/21 TIME: 14:14 Chief Complaint Chief Complaint A/P: Abdominal pain S/p ventricular hernia repair 02/13 Post-op AFIB/flutter with RVR - SR with PACs. on lovenox ppx dosing and IV metoprolol Acute respiratory failure - likely secondary to acute COPD and acute diastolic CHF worsened by Afib as above Acute diastolic CHF - cardiology following, Echo with no reduction in EF Hypertensive urgency - seems to be due to pain Anemia - hgb drift to 8.2 H/o breast CA s/p radiation Hyperkalemia - resolved Encephalopathy - remains lethargic Chronic obstructive pulmonary disease, unknown FEV1 Hypernatremia -nephrology following Possible aspiration pneumonia versus fluid overload-start Vanco Zosyn for broad- spectrum coverage. Line may need to be removed if blood cultures positive. ID reconsulted. One-time 40 IV Lasix. History of Present Illness History of Present Illness Ms Dyson is a 75yo female w/ PMHx rheumatoid arthritis, depression, hypertension, breast cancer and prior colectomy who was admitted for a large ventral hernia repair which she underwent on February 13. Had done really well after surgery initially she was actually planning to start trialing liquids, but was transferred to ICU for concern for sepsis and new onset A. fib with RVR requiring a Cardizem drip, cardiology, Infectious Disease and pulmonary were consulted. Patient started on broad-spectrum antibiotics. Pulmonary following. 02/16: ICU today. Her condition has significantly improved since last night. She is awake alert and oriented able to answer questions says pain is under control. Blood pressure holding steady. Remains on Cardizem drip. Continue antibiotics today. Requesting to drink if she can, will defer this decision to surgery. 02/17: She is complaining about some shortness of breath but is feeling comfortable. We will try 1 dose of Lasix today based upon chest x-ray. 02/18: Evaluated at bedside. Patient resting in bed. Appears to be in normal sinus rhythm. No major clinical changes otherwise. 02/19: Evaluated at bedside. Patient resting in bed pursed lip breathing D/W XAVIER/ CONNIE CLEANER, ABG pending d/w in room k 5.8 on tpn pharmacy to adjust k in tpn 02/20: Evaluated at bedside. D/W XAVIER/ CONNIE CLEANER, ABG pending d/w in room k 5.8 on tpn pharmacy to adjust k in tpn 02/21: Transferred from ICU overnight. Still very confused. Family says she said hello. Moving all 4 extremities. Afebrile. NA 156. WBC 19.2, Hb 8.1. D/w family bedside. 02/22: NA 158. Afebrile. Asking for coffee. Still requiring 3L NCO2. D/w surgery given her deconditioning and need for IV nutrition she would need likely referral to LTACH. 02/23: NA 162. Afebrile. More alert. Asking for food. No BM. Very weak, d/w beside to consider LTACH. Chest radiograph with PICC crossing midline. Diet advanced 02/24: Afebrile overnight. Feeling a little worse. She is taking p.o. had some juice had a bowel movement. Chest radiograph revealed PICC has become malpositioned. IV on hold. Afebrile. NA 137. Feels a little hot. Has been upset about PICC and making sure she is getting her medications. Reassured she can appropriately medicated by mouth. She is asking for some cold to drink. Noted she still on thickened liquids 02/26 Patient evaluated at bedside. Still frustrated about PICC line, imaging shows it is in the left subclavian. From medical standpoint patient with hypernatremia of 162 today. Still mentating well. Nephrology following. Defer rest to primary surgical team 02/27 Patient evaluated at bedside, she does remain very weak still. 6 min walk ordered but question if she will be able to complete. Labs from today pending still. 02/28 Patient evaluated and examined at bedside. Pretty lethargic this morning informed by bedside nurse she had a hemoglobin below 7 along with an elevated temperature to 100. Patient also was made n.p.o. today after speech evaluation concerned she is aspirating. Contacted surgical team who graciously evaluated the patient. Order chest x-ray patient does appear to have some fluid overload, discussed the case with Dr. Caro who recommended trying a dose of IV Lasix given her fluid overload on exam. Agreed with continuing antibiotics. We will continue to closely monitor. If she should worsen consider ICU transfer. Vitals/I&O Vitals/I&O: Vital Signs Date Time Temp Pulse Resp B/P (MAP) Pulse Ox O2 Delivery O2 Flow Rate FiO2 02/28/21 14:03 97 Nasal Cannula 1.0 02/28/21 12:23 98 145/60 02/28/21 11:00 99.8 19 99.8 I & O 02/27/21 02/27/21 02/28/21 15:00 23:00 07:00 Intake Total 243 ml 50 ml 0 ml Output Total 55 ml 1260 ml Balance 243 ml -5 ml -1260 ml Physical Exam Physical Exam: GENERAL: Sleepy but arousable HEENT: Normocephalic, atraumatic. Anicteric. Dry mouth NECK: Supple. No JVD. LUNGS: Rales present + for wheezing HEART: Irregularly irregular no murmurs appreciated ABDOMEN: Obese , distended binder in place, not taken down, intact dry Hypoactive bowel sounds [address] EXTREMITIES mild edema present, no cyanosis MUSCULOSKELETAL: No joint swelling. No decrease in range of motion. CENTRAL NERVOUS SYSTEM: Sleepy, arousable PSYCHIATRIC: Cooperative, sleepy PICC line clean General: Alert, Cooperative, moderate distress Heart: Regular rate Lungs: Clear Abdomen: Soft, Other (drains in place) Extremities: No edema, Normal pulses Skin: No significant lesion Labs Labs: Laboratory Tests Test 02/27/21 14:25 02/27/21 17:41 02/27/21 20:36 02/28/21 05:35 Sodium Level 144 mmol/L (136-145) 139 mmol/L (136-145) Potassium Level 4.9 mmol/L (3.5-5.1) 4.4 mmol/L (3.5-5.1) Chloride Level 111 mmol/L (98-107) 107 mmol/L (98-107) Carbon Dioxide Level 25 mmol/L (21-32) 26 mmol/L (21-32) Anion Gap 8 (6-14) 6 (6-14) Blood Urea Nitrogen 17 mg/dL (7-20) 12 mg/dL (7-20) Creatinine 0.7 mg/dL (0.6-1.0) 0.7 mg/dL (0.6-1.0) Estimated GFR (Cockcroft-Gault) 81.1 81.1 BUN/Creatinine Ratio 24 (6-20) Glucose Level 207 mg/dL (70-99) 98 mg/dL (70-99) Calcium Level 6.8 mg/dL (8.5-10.1) 6.6 mg/dL (8.5-10.1) Total Bilirubin 0.6 mg/dL (0.2-1.0) Aspartate Amino Transf (AST/SGOT) 37 U/L (15-37) Alanine Aminotransferase (ALT/SGPT) 63 U/L (14-59) Alkaline Phosphatase 81 U/L (46-116) Total Protein 4.9 g/dL (6.4-8.2) Albumin 1.8 g/dL (3.4-5.0) Albumin/Globulin Ratio 0.6 (1.0-1.7) Glucose (Fingerstick) 226 mg/dL (70-99) 185 mg/dL (70-99) White Blood Count 16.0 x10^3/uL (4.0-11.0) Hemoglobin 6.7 g/dL (12.0-15.5) Hematocrit 20.8 % (36.0-47.0) Platelet Count 132 x10^3/uL (140-400) C-Reactive Protein, Quantitative 31.3 mg/L (0-3.3) Test 02/28/21 07:47 02/28/21 11:47 02/28/21 13:15 Glucose (Fingerstick) 116 mg/dL (70-99) 101 mg/dL (70-99) Lactic Acid Level 1.1 mmol/L (0.4-2.0) Comment Review of Relevant I have reviewed the following items keely (where applicable) has been applied. Medications: Current Medications Medications (Trade) Dose Ordered Sig/Isael Route PRN Reason Start Time Stop Time Status Last Admin Dose Admin Info (Tpn Per Pharmacy) 1 each PRN DAILY PRN MC SEE COMMENTS 02/28/21 13:15 02/28/21 13:39 Piperacillin Sod/ Tazobactam Sod 3.375 gm/Sodium Chloride 50 ml @ 100 mls/hr Q6HRS IV 02/28/21 13:30 02/28/21 13:42 Furosemide (Lasix) 40 mg 1X ONCE IVP 02/28/21 14:00 02/28/21 14:01 DC 02/28/21 13:41 Justifications for Admission Other Justification BENY HUGGINS MD Feb 28, 2021 14:18
--- NOTE | 2021-02-28 14:41 | PDOC ---
PROGRESS NOTES Date of Service DATE: 02/28/21 TIME: 14:39 Subjective Subjective pt appears ill, denies abdominal pain, states she is short of breath, nurse reports temp 100 Objective Objective Vital Signs Date Time Temp Pulse Resp B/P (MAP) Pulse Ox O2 Delivery O2 Flow Rate FiO2 02/28/21 14:03 97 Nasal Cannula 1.0 02/28/21 12:23 98 145/60 02/28/21 11:00 99.8 19 99.8 Intake and Output 02/28/21 07:00 Intake Total 293 ml Output Total 1315 ml Balance -1022 ml Intake Oral 293 ml Output Urine Total 1200 ml Drainage Total 115 ml # Bowel Movements 1 Physical Exam Abdomen: Soft (beau drains serosang, incision looks good, no signs of infection) Assessment Assessment S/P VHR with component separation Plan Plan of Care Appears more uncomfortable today, complains of shortness of breath; discussed with medicine, starting antibiotics again, plan CXR, blood cultures Comment Review of Relevant I have reviewed the following items keely (where applicable) has been applied. Labs Laboratory Tests Test 02/26/21 16:23 02/26/21 21:42 02/27/21 07:43 02/27/21 11:30 Glucose (Fingerstick) 236 mg/dL (70-99) 168 mg/dL (70-99) 126 mg/dL (70-99) 155 mg/dL (70-99) Test 02/27/21 14:25 02/27/21 17:41 02/27/21 20:36 02/28/21 05:35 Sodium Level 144 mmol/L (136-145) 139 mmol/L (136-145) Potassium Level 4.9 mmol/L (3.5-5.1) 4.4 mmol/L (3.5-5.1) Chloride Level 111 mmol/L (98-107) 107 mmol/L (98-107) Carbon Dioxide Level 25 mmol/L (21-32) 26 mmol/L (21-32) Anion Gap 8 (6-14) 6 (6-14) Blood Urea Nitrogen 17 mg/dL (7-20) 12 mg/dL (7-20) Creatinine 0.7 mg/dL (0.6-1.0) 0.7 mg/dL (0.6-1.0) Estimated GFR (Cockcroft-Gault) 81.1 81.1 BUN/Creatinine Ratio 24 (6-20) Glucose Level 207 mg/dL (70-99) 98 mg/dL (70-99) Calcium Level 6.8 mg/dL (8.5-10.1) 6.6 mg/dL (8.5-10.1) Total Bilirubin 0.6 mg/dL (0.2-1.0) Aspartate Amino Transf (AST/SGOT) 37 U/L (15-37) Alanine Aminotransferase (ALT/SGPT) 63 U/L (14-59) Alkaline Phosphatase 81 U/L (46-116) Total Protein 4.9 g/dL (6.4-8.2) Albumin 1.8 g/dL (3.4-5.0) Albumin/Globulin Ratio 0.6 (1.0-1.7) Glucose (Fingerstick) 226 mg/dL (70-99) 185 mg/dL (70-99) White Blood Count 16.0 x10^3/uL (4.0-11.0) Hemoglobin 6.7 g/dL (12.0-15.5) Hematocrit 20.8 % (36.0-47.0) Platelet Count 132 x10^3/uL (140-400) C-Reactive Protein, Quantitative 31.3 mg/L (0-3.3) Test 02/28/21 07:47 02/28/21 11:47 02/28/21 13:15 Glucose (Fingerstick) 116 mg/dL (70-99) 101 mg/dL (70-99) Lactic Acid Level 1.1 mmol/L (0.4-2.0) Laboratory Tests Test 02/27/21 17:41 02/27/21 20:36 02/28/21 05:35 02/28/21 07:47 Glucose (Fingerstick) 226 mg/dL (70-99) 185 mg/dL (70-99) 116 mg/dL (70-99) White Blood Count 16.0 x10^3/uL (4.0-11.0) Hemoglobin 6.7 g/dL (12.0-15.5) Hematocrit 20.8 % (36.0-47.0) Platelet Count 132 x10^3/uL (140-400) Sodium Level 139 mmol/L (136-145) Potassium Level 4.4 mmol/L (3.5-5.1) Chloride Level 107 mmol/L (98-107) Carbon Dioxide Level 26 mmol/L (21-32) Anion Gap 6 (6-14) Blood Urea Nitrogen 12 mg/dL (7-20) Creatinine 0.7 mg/dL (0.6-1.0) Estimated GFR (Cockcroft-Gault) 81.1 Glucose Level 98 mg/dL (70-99) Calcium Level 6.6 mg/dL (8.5-10.1) C-Reactive Protein, Quantitative 31.3 mg/L (0-3.3) Test 02/28/21 11:47 02/28/21 13:15 Glucose (Fingerstick) 101 mg/dL (70-99) Lactic Acid Level 1.1 mmol/L (0.4-2.0) Medications Current Medications Fentanyl Citrate (Fentanyl 2ml Vial) 25 mcg PRN Q5MIN PRN IVP MILD PAIN 1-3 Last administered on 02/13/21at 18:23; Start 02/13/21 at 06:00; Stop 02/13/21 at 21:00; Status DC Fentanyl Citrate (Fentanyl 2ml Vial) 50 mcg PRN Q5MIN PRN IVP MODERATE PAIN 4-6 Last administered on 02/13/21at 17:53; Start 02/13/21 at 06:00; Stop 02/13/21 at 21:00; Status DC Morphine Sulfate (Morphine Sulfate) 1 mg PRN Q10MIN PRN IVP SEVERE PAIN 7-10; Start 02/13/21 at 06:00; Stop 02/13/21 at 21:00; Status DC Ringer's Solution 1,000 ml @ 30 mls/hr Q24H IV ; Start 02/13/21 at 06:00; Stop 02/13/21 at 18:00; Status DC Hydromorphone HCl (Dilaudid) 0.5 mg PRN Q10MIN PRN IVP SEVERE PAIN 7-10, 2nd CHOICE Last administered on 02/13/21at 18:18; Start 02/13/21 at 06:00; Stop 02/13/21 at 21:00; Status DC Prochlorperazine Edisylate (Compazine) 5 mg PACU PRN PRN IVP NAUSEA, MRX1; Start 02/13/21 at 06:00; Stop 02/13/21 at 21:00; Status DC Propofol (Diprivan) 200 mg STK-MED ONCE IV ; Start 02/13/21 at 09:36; Stop 02/13/21 at 09:36; Status DC Lidocaine HCl (Lidocaine Pf 2% Vial) 5 ml STK-MED ONCE .ROUTE ; Start 02/13/21 at 09:36; Stop 02/13/21 at 09:36; Status DC Dexamethasone Sodium Phosphate (Decadron) 4 mg STK-MED ONCE .ROUTE ; Start 02/13/21 at 09:36; Stop 02/13/21 at 09:36; Status DC Ondansetron HCl (Zofran) 4 mg STK-MED ONCE .ROUTE ; Start 02/13/21 at 09:36; Stop 02/13/21 at 09:36; Status DC Rocuronium [place] (Zemuron) 50 mg STK-MED ONCE .ROUTE ; Start 02/13/21 at 0 9:36; Stop 02/13/21 at 09:36; Status DC Succinylcholine Chloride (Anectine) 200 mg STK-MED ONCE .ROUTE ; Start 02/13/21 at 09:38; Stop 02/13/21 at 09:38; Status DC Cefazolin Sodium/ Dextrose 0 ml @ As Directed STK-MED ONCE IV ; Start 02/13/21 at 09:45; Stop 02/13/21 at 09:45; Status DC Cefazolin Sodium (Ancef) 1 gm 1X PREOP PRN IVP PRIOR TO PROCEDURE; Start 02/13/21 at 10:00; Stop 02/13/21 at 15:08; Status DC Fentanyl Citrate (Fentanyl 2ml Vial) 100 mcg STK-MED ONCE .ROUTE ; Start 02/13/21 at 12:53; Stop 02/13/21 at 12:53; Status DC Rocuronium [place] (Zemuron) 50 mg STK-MED ONCE .ROUTE ; Start 02/13/21 at 13:53; Stop 02/13/21 at 13:54; Status DC Fentanyl Citrate (Fentanyl 2ml Vial) 100 mcg STK-MED ONCE .ROUTE ; Start 02/13/21 at 09:38; Stop 02/13/21 at 15:05; Status DC Hydromorphone HCl (Dilaudid) 2 mg STK-MED ONCE .ROUTE ; Start 02/13/21 at 15:42; Stop 02/13/21 at 15:43; Status DC Glycopyrrolate (Robinul) 1 mg STK-MED ONCE .ROUTE ; Start 02/13/21 at 16:33; Stop 02/13/21 at 16:33; Status DC Neostigmine [place] (Neostigmine Methylsulfate) 5 mg STK-MED ONCE .ROUTE ; Start 02/13/21 at 16:33; Stop 02/13/21 at 16:33; Status DC Enoxaparin Sodium (Lovenox 40mg Syringe) 40 mg Q24H SQ Last administered on 02/27/21at 17:36; Start 02/13/21 at 18:00 Sodium Chloride (Normal Saline Flush) 3 ml QSHIFT PRN IV AFTER MEDS AND BLOOD DRAWS; Start 02/13/21 at 17:15 Sodium Chloride 1,000 ml @ 100 mls/hr Q10H IV Last administered on 02/15/21at 13:11; Start 02/13/21 at 17:15; Stop 02/17/21 at 11:03; Status DC Naloxone HCl (Narcan) 0.4 mg PRN Q2MIN PRN IV SEE INSTRUCTIONS Last administered on 02/19/21at 08:26; Start 02/13/21 at 17:15 Sodium Chloride 1,000 ml @ 25 mls/hr Q24H IV Last administered on 02/19/21at 17:15; Start 02/13/21 at 17:15; Stop 02/21/21 at 21:28; Status DC Hydromorphone HCl 30 ml @ 0 mls/hr CONT PRN PRN IV PER PROTOCOL Last administered on 02/18/21at 08:16; Start 02/13/21 at 17:15; Stop 02/20/21 at 08:28; Status DC Ondansetron HCl (Zofran) 4 mg PRN Q6HRS PRN IVP NAUESA, 1ST CHOICE Last administered on 02/22/21at 15:32; Start 02/13/21 at 17:15 Hydromorphone HCl (Dilaudid) 2 mg STK-MED ONCE .ROUTE ; Start 02/13/21 at 17:45; Stop 02/13/21 at 17:45; Status DC Fentanyl Citrate (Fentanyl 2ml Vial) 100 mcg STK-MED ONCE .ROUTE ; Start 02/13/21 at 17:45; Stop 02/13/21 at 17:46; Status DC Ketorolac Tromethamine (Toradol 15mg Vial) 15 mg 1X ONCE IVP Last administered on 02/14/21at 09:33; Start 02/14/21 at 09:15; Stop 02/14/21 at 09:19; Status DC Info (FLU VACCINE SCREEN per RX) 1 each PRN DAILY PRN MC SEE COMMENTS; Start 02/14/21 at 23:30; Status Cancel Metoprolol Tartrate (Lopressor Vial) 5 mg PRN Q5MIN PRN IVP TACHYCARDIA Last administered on 02/21/21at 03:30; Start 02/15/21 at 20:15; Stop 02/23/21 at 12:24; Status DC Acetaminophen (Tylenol) 1,000 mg 1X ONCE PO Last administered on 02/15/21at 20:24; Start 02/15/21 at 20:15; Stop 02/15/21 at 20:16; Status DC Sodium Chloride 500 ml @ 500 mls/hr 1X ONCE IV ; Start 02/15/21 at 21:30; Stop 02/15/21 at 22:29; Status DC Ipratropium [place] (Atrovent) 0.5 mg 1X ONCE NEB ; Start 02/15/21 at 22:00; Stop 02/15/21 at 22:01; Status DC Ipratropium [place] (Atrovent) 0.5 mg RTQID NEB Last administered on 02/28/21at 14:03; Start 02/16/21 at 08:00 Vancomycin HCl (Vanco Per Pharmacy) 1 each PRN DAILY PRN MC SEE COMMENTS Last administered on 02/16/21at 03:40; Start 02/15/21 at 21:30; Stop 02/16/21 at 11:17; Status DC Cefepime HCl (Maxipime) 1 gm Q24H IVP Last administered on 02/15/21at 23:10; Start 02/15/21 at 22:00; Stop 02/16/21 at 11:18; Status DC Metronidazole 100 ml @ 100 mls/hr Q12HR IV Last administered on 02/19/21at 09:21; Start 02/15/21 at 22:00; Stop 02/19/21 at 10:34; Status DC Diltiazem HCl 125 mg/Sodium Chloride 125 ml @ 5 mls/hr CONT PRN IV SEE I/O RECORD Last administered on 02/23/21at 01:59; Start 02/15/21 at 21:30; Stop 02/23/21 at 12:24; Status DC Vancomycin HCl 1.75 gm/Sodium Chloride 500 ml @ 250 mls/hr 1X ONCE IV Last a dministered on 02/15/21at 23:00; Start 02/15/21 at 22:00; Stop 02/15/21 at 23:59; Status DC Methylprednisolone Sodium Succinate (SOLU-Medrol 40MG VIAL) 30 mg DAILY IV Last administered on 02/17/21at 09:10; Start 02/16/21 at 09:00; Stop 02/18/21 at 06:48; Status DC Vancomycin HCl 1 gm/Sodium Chloride 250 ml @ 250 mls/hr Q24H IV ; Start 02/16/21 at 23:00; Stop 02/16/21 at 11:16; Status DC Vancomycin HCl (Vancomycin Trough Level) 1 each 1X ONCE MC ; Start 02/17/21 at 22:30; Stop 02/16/21 at 11:17; Status DC Cefepime HCl (Maxipime) 2 gm Q12HR IVP Last administered on 02/19/21at 21:02; Start 02/16/21 at 12:00; Stop 02/20/21 at 08:33; Status DC Linezolid/Dextrose 300 ml @ 300 mls/hr Q12HR IV Last administered on 02/19/21at 09:22; Start 02/16/21 at 12:00; Stop 02/19/21 at 10:34; Status DC Info (Tpn Per Pharmacy) 1 each PRN DAILY PRN MC SEE COMMENTS Last administered on 02/21/21at 11:25; Start 02/16/21 at 14:00; Stop 02/21/21 at 12:43; Status DC Furosemide (Lasix) 20 mg 1X ONCE IVP Last administered on 02/16/21at 15:42; Start 02/16/21 at 14:15; Stop 02/16/21 at 14:16; Status DC Potassium Phosphate 15 mmol/ Sodium Chloride 105 ml @ 52.5 mls/hr 1X ONCE IV Last administered on 02/16/21at 15:43; Start 02/16/21 at 15:00; Stop 02/16/21 at 16:59; Status DC Sodium Chloride 90 meq/Potassium Chloride 50 meq/ Potassium Phosphate 20 mmol/ Magnesium Sulfate 10 meq/Calcium Gluconate 10 meq/ Multivitamins 10 ml/Zinc/Copper/ Manganese/ Selenium 1 ml/ Total Parenteral Nutrition/Amino Acids/Dextrose/ Fat Emulsion Intravenous 1,296 ml @ 54 mls/hr TPN CONT IV Last administered on 02/16/21at 21:24; Start 02/16/21 at 22:00; Stop 02/17/21 at 21:59; Status DC Sodium Phosphate 20 mmol/Sodium Chloride 256.6667 ml @ 64.167 m... 1X ONCE IV Last administered on 02/17/21at 10:55; Start 02/17/21 at 10:00; Stop 02/17/21 at 13:59; Status DC Sodium Chloride 90 meq/Sodium Phosphate 10 mmol/ Potassium Chloride 50 meq/ Potassium Phosphate 20 mmol/ Magnesium Sulfate 5 meq/ Multivitamins 10 ml/Zinc/Copper/ Manganese/ Selenium 1 ml/ Total Parenteral Nutrition/Amino Acids/Dextrose/ Fat Emulsion Intravenous 1,296 ml @ 54 mls/hr TPN CONT IV ; Start 02/17/21 at 22:00; Stop 02/17/21 at 09:07; Status DC Furosemide (Lasix) 40 mg 1X ONCE IVP Last administered on 02/17/21at 09:12; Start 02/17/21 at 09:15; Stop 02/17/21 at 09:16; Status DC Sodium Phosphate 20 mmol/Sodium Chloride 256.6667 ml @ 64.167 m... 1X ONCE IV ; Start 02/17/21 at 09:15; Stop 02/17/21 at 13:14; Status UNV Sodium Chloride 90 meq/Sodium Phosphate 10 mmol/ Potassium Chloride 50 meq/ Potassium Phosphate 20 mmol/ Magnesium Sulfate 5 meq/ Multivitamins 10 ml/Zinc/Copper/ Manganese/ Selenium 1 ml/ Total Parenteral Nutrition/Amino Acids/Dextrose/ Fat Emulsion Intravenous 1,080 ml @ 45 mls/hr TPN CONT IV Last administered on 02/17/21at 21:12; Start 02/17/21 at 22:00; Stop 02/18/21 at 21:59; Status DC Morphine Sulfate (Morphine Sulfate) 1 mg 1X ONCE IVP Last administered on 02/17/21at 11:20; Start 02/17/21 at 11:15; Stop 02/17/21 at 11:16; Status DC Lorazepam (Ativan Inj) 1 mg PRN Q4HRS PRN IVP ANXIETY / AGITATION Last administered on 02/18/21at 14:31; Start 02/17/21 at 11:15; Stop 02/18/21 at 14:43; Status DC Epinephrine (S2 Racepinephrine) 0.5 ml 1X ONCE NEB Last administered on 02/17/21at 15:29; Start 02/17/21 at 14:15; Stop 02/17/21 at 14:16; Status DC Furosemide (Lasix) 20 mg 1X ONCE IVP Last administered on 02/18/21at 07:09; Start 02/18/21 at 07:00; Stop 02/18/21 at 07:01; Status DC Albuterol Sulfate (Ventolin Neb Soln) 2.5 mg PRN Q4HRS PRN NEB WHEEZING Last administered on 02/28/21at 14:03; Start 02/18/21 at 06:45 Methylprednisolone Sodium Succinate (SOLU-Medrol 125MG VIAL) 125 mg 1X ONCE IV Last administered on 02/18/21at 08:07; Start 02/18/21 at 07:00; Stop 02/18/21 at 07:01; Status DC Methylprednisolone Sodium Succinate (SOLU-Medrol 40MG VIAL) 40 mg Q12HR IV Last administered on 02/19/21at 21:01; Start 02/18/21 at 09:00; Stop 02/20/21 at 09: 05; Status DC Sodium Phosphate 15 mmol/Sodium Chloride 105 ml @ 105 mls/hr 1X ONCE IV Last administered on 02/18/21at 09:20; Start 02/18/21 at 10:00; Stop 02/18/21 at 10:59; Status DC Sodium Acetate 90 meq/Sodium Phosphate 20 mmol/ Potassium Chloride 30 meq/ Potassium Phosphate 20 mmol/ Multivitamins 10 ml/Zinc/Copper/ Manganese/ Selenium 1 ml/ Total Parenteral Nutrition/Amino Acids/Dextrose/ Fat Emulsion Intravenous 1,080 ml @ 45 mls/hr TPN CONT IV Last administered on 02/18/21at 21:35; Start 02/18/21 at 22:00; Stop 02/19/21 at 21:59; Status DC Budesonide (Pulmicort) 0.5 mg 1X ONCE NEB Last administered on 02/18/21at 11:39; Start 02/18/21 at 11:15; Stop 02/18/21 at 11:16; Status DC Budesonide (Pulmicort) 0.5 mg RTBID NEB Last administered on 02/28/21at 07:19; Start 02/18/21 at 20:00 Insulin Human Lispro (HumaLOG) 0-7 UNITS Q6HRS SQ Last administered on 02/23/21at 13:30; Start 02/18/21 at 12:00; Stop 02/23/21 at 17:10; Status DC Dextrose (Dextrose 50%-Water Syringe) 12.5 gm PRN Q15MIN PRN IV SEE COMMENTS; Start 02/18/21 at 12:00 Hydralazine HCl (Apresoline Inj) 10 mg PRN Q4HRS PRN IVP ELEVATED BP, 1ST CHOICE Last administered on 02/28/21at 11:04; Start 02/18/21 at 12:30 Fentanyl Citrate (Fentanyl 2ml Vial) 100 mcg STK-MED ONCE .ROUTE ; Start 1 at 08:01; Stop 02/19/21 at 08:02; Status DC Fentanyl Citrate (Fentanyl 2ml Vial) 50 mcg 1X ONCE IVP Last administered on 02/19/21at 08:06; Start 02/19/21 at 08:15; Stop 02/19/21 at 08:16; Status DC Furosemide (Lasix) 40 mg DAILY IVP Last administered on 02/21/21at 08:37; Start 02/19/21 at 11:45; Stop 02/21/21 at 12:57; Status DC Digoxin (Lanoxin) 500 mcg 1X ONCE IV Last administered on 02/19/21at 15:15; Start 02/19/21 at 14:45; Stop 02/19/21 at 14:46; Status DC Metoprolol Tartrate (Lopressor Vial) 5 mg Q6HRS IVP Last administered on 02/23/21at 06:27; Start 02/19/21 at 18:00; Stop 02/23/21 at 13:54; Status DC Famotidine (Pepcid Vial) 20 mg QHS IVP Last administered on 02/22/21at 21:15; Start 02/19/21 at 21:00; Stop 02/24/21 at 14:34; Status DC Sodium Phosphate 40 mmol/ Multivitamins 10 ml/Zinc/Copper/ Manganese/ Selenium 1 ml/ Total Parenteral Nutrition/Amino Acids/Dextrose/ Fat Emulsion Intravenous 1,080 ml @ 45 mls/hr TPN CONT IV Last administered on 02/19/21at 21:31; Start 02/19/21 at 22:00; Stop 02/20/21 at 21:59; Status DC Hydromorphone HCl (Dilaudid) 0.2 mg PRN Q4HRS PRN IVP PAIN; Start 02/20/21 at 08:30; Stop 02/20/21 at 09:05; Status DC Methylprednisolone Sodium Succinate (SOLU-Medrol 40MG VIAL) 60 mg Q8HRS IV Last administered on 02/23/21at 06:31; Start 02/20/21 at 14:00; Stop 02/23/21 at 12:23; Status DC Fentanyl Citrate (Fentanyl 2ml Vial) 25 mcg PRN Q3HRS PRN IVP PAIN Last administered on 02/20/21at 15:04; Start 02/20/21 at 09:15; Stop 02/20/21 at 16:55; Status DC Insulin Glargine (Lantus Syringe) 8 unit QHS SQ Last administered on 02/27/21at 21:28; Start 02/20/21 at 21:00 Sodium Phosphate 40 mmol/ Multivitamins 10 ml/Zinc/Copper/ Manganese/ Selenium 1 ml/ Total Parenteral Nutrition/Amino Acids/Dextrose/ Fat Emulsion Intravenous 1,080 ml @ 45 mls/hr TPN CONT IV Last administered on 02/20/21at 22:45; Start 02/20/21 at 22:00; Stop 02/21/21 at 12:43; Status DC Hydralazine HCl (Apresoline Inj) 10 mg 1X ONCE IVP Last administered on 02/20/21at 13:06; Start 02/20/21 at 12:45; Stop 02/20/21 at 12:46; Status DC Nitroglycerin (Nitro-Bid Oint) 1 inch Q6HRS TP Last administered on 02/28/21at 12:23; Start 02/20/21 at 13:00 Enalaprilat (Vasotec Inj) 1.25 mg 1X ONCE IVP Last administered on 02/20/21at 16:47; Start 02/20/21 at 16:00; Stop 02/20/21 at 16:10; Status DC Fentanyl Citrate (Fentanyl 2ml Vial) 25 mcg PRN Q1HR PRN IVP PAIN Last administered on 02/21/21at 08:03; Start 02/20/21 at 17:00; Stop 02/21/21 at 10:15; Status DC Piperacillin Sod/ Tazobactam Sod 3.375 gm/Sodium Chloride 50 ml @ 100 mls/hr Q6HRS IV Last administered on 02/23/21at 13:10; Start 02/21/21 at 09:00; Stop 02/24/21 at 10:07; Status DC Fentanyl Citrate (Fentanyl 2ml Vial) 25 mcg PRN Q2HRS PRN IVP PAIN Last administered on 02/26/21at 22:03; Start 02/21/21 at 10:15 Sodium Phosphate 20 mmol/Potassium Phosphate 20 mmol/ Multivitamins 10 ml/Zinc/Copper/ Manganese/ Selenium 1 ml/ Total Parenteral Nutrition/Amino Acids/Dextrose/ Fat Emulsion Intravenous 1,320 ml @ 55 mls/hr TPN CONT IV ; Start 02/21/21 at 22:00; Stop 02/22/21 at 21:59; Status DC Labetalol HCl (Normodyne Iv Push) 20 mg PRN Q2HR PRN IVP HYPERTENSION, 2ND CHOICE; Start 02/21/21 at 12:15 Dextrose 1,000 ml @ 150 mls/hr Q6H40M IV Last administered on 02/28/21at 05:31; Start 02/21/21 at 12:45; Stop 02/28/21 at 10:02; Status DC Hydralazine HCl (Apresoline Inj) 10 mg 1X ONCE IVP Last administered on 02/21/21at 14:43; Start 02/21/21 at 14:15; Stop 02/21/21 at 17:30; Status DC Enalaprilat (Vasotec Inj) 1.25 mg Q6HRS IVP Last administered on 02/23/21at 06:28; Start 02/22/21 at 12:00; Stop 02/23/21 at 12:24; Status DC Potassium Phosphate 30 mmol/ Multivitamins 10 ml/Zinc/Copper/ Manganese/ [place] enium 1 ml/ Total Parenteral Nutrition/Amino Acids/Dextrose/ Fat Emulsion Intravenous 1,440 ml @ 60 mls/hr TPN CONT IV ; Start 02/22/21 at 22:00; Stop 02/23/21 at 21:59; Status DC Info (Tpn Per Pharmacy) 1 each PRN DAILY PRN MC SEE COMMENTS Last administered on 02/22/21at 15:04; Start 02/22/21 at 13:30; Stop 02/23/21 at 12:26; Status DC Methylprednisolone Sodium Succinate (SOLU-Medrol 125MG VIAL) 60 mg DAILY IV ; Start 02/24/21 at 09:00; Stop 02/24/21 at 14:34; Status DC Diltiazem HCl (Cardizem 24hr Cd) 300 mg DAILY PO Last administered on 02/23/21at 13:09; Start 02/23/21 at 12:30; Stop 02/23/21 at 19:27; Status DC Lisinopril (Prinivil) 20 mg DAILY PO Last administered on 02/28/21at 08:25; Start 02/23/21 at 12:30; Stop 02/28/21 at 13:17; Status DC Insulin Human Lispro (HumaLOG) 0-7 UNITS QIDACHS SQ Last administered on 02/27/21at 17:47; Start 02/23/21 at 17:15 Diltiazem HCl (Cardizem 24hr Cd) 240 mg DAILY PO Last administered on 02/28/21at 08:25; Start 02/24/21 at 09:00 Amoxicillin/ Clavulanate Potassium (Augmentin 875/ 125mg) 1 tab BID PO Last administered on 02/27/21at 08:42; Start 02/24/21 at 11:30; Stop 02/27/21 at 09:40; Status DC Prednisone (Prednisone) 20 mg DAILY PO ; Start 02/25/21 at 09:00; Stop 02/24/21 at 15:25; Status DC Throat Lozenges (Cepacol Sore Throat Lozenge) 1 zulay PRN Q2HRS PRN PO SORE THROAT Last administered on 02/25/21 09:25; Start 02/24/21 at 14:45 Acetaminophen (Tylenol) 650 mg PRN Q6HRS PRN PO MILD PAIN / TEMP > 100.3'F Last administered on 02/28/21at 08:26; Start 02/24/21 at 14:45 Famotidine (Pepcid) 20 mg BID PO Last administered on 02/28/21 08:24; Start 02/24/21 at 21:00 Prednisone (Prednisone) 20 mg DAILY PO Last administered on 02/28/21 08:24; Start 02/24/21 at 15:30 Lactobacillus Rhamnosus (Culturelle) 1 cap BID PO Last administered on 02/28/21 08:24; Start 02/24/21 at 21:00 Phenol (Chloraseptic) 1 spray PRN Q2HR PRN PO SORE THROAT Last administered on 02/25/21at 09:30; Start 02/25/21 at 09:00 Oxycodone/ Acetaminophen (Percocet 5/325) 1 tab PRN Q6HRS PRN PO MODERATE- SEVERE PAIN Last administered on 02/27/21at 13:48; Start 02/25/21 at 10:30 Potassium Chloride (Klor-Con) 40 meq 1X ONCE PO Last administered on 02/25/21at 16:54; Start 02/25/21 at 15:30; Stop 02/25/21 at 15:31; Status DC Alteplase, Recombinant (Cathflo For Central Catheter Clearance) 1 mg 1X ONCE INT CAT Last administered on 02/26/21at 17:50; Start 02/26/21 at 17:00; Stop at 17:01; Status DC Nystatin (Nystatin Oral Susp) 5 ml [id number] Last administered on 02/28/21at 14:07; Start 02/27/21 at 13:00 Lisinopril (Prinivil) 10 mg DAILY PO ; Start 02/28/21 at 11:30 Magnesium Oxide (Magnesium Oxide) 800 mg 1X ONCE PO ; Start 02/28/21 at 11:45; Stop 02/28/21 at 11:46; Status Cancel Vancomycin HCl (Vanco Per Pharmacy) 1 each PRN DAILY PRN MC SEE COMMENTS; Start 02/28/21 at 12:45; Status Cancel Piperacillin Sod/ Tazobactam Sod (Zosyn Per Pharmacy) 1 each PRN DAILY PRN MC SEE COMMENTS; Start 02/28/21 at 12:45 Info (Tpn Per Pharmacy) 1 each PRN DAILY PRN MC SEE COMMENTS Last administered on 02/28/21at 13:39; Start 02/28/21 at 13:15 Vancomycin HCl 1.75 gm/Sodium Chloride 500 ml @ 250 mls/hr 1X ONCE IV ; Start 02/28/21 at 13:15; Stop 02/28/21 at 15:14; Status Cancel Piperacillin Sod/ Tazobactam Sod 3.375 gm/Sodium Chloride 50 ml @ 100 mls/hr Q6HRS IV Last administered on 02/28/21at 13:42; Start 02/28/21 at 13:30 Furosemide (Lasix) 40 mg 1X ONCE IVP Last administered on 02/28/21at 13:41; Start 02/28/21 at 14:00; Stop 02/28/21 at 14:01; Status DC Sodium Chloride 90 meq/Potassium Chloride 50 meq/ Potassium Phosphate 13.6 mmol/Magnesium Sulfate 6 meq/ Calcium Gluconate 10 meq/ Multivitamins 10 ml/Zinc/Copper/ Manganese/ Selenium 1 ml/ Total Parenteral Nutrition/Amino Acids/Dextrose/ Fat Emulsion Intravenous 1,512 ml @ 63 mls/hr TPN CONT IV ; Start 02/28/21 at 22:00; Stop 03/01/21 at 21:59 Active Scripts Active Reported Vitamin B12 (Cyanocobalamin (Vitamin B-12)) 2,500 Mcg Tablet 500 Mg PO BID Nexium Capsule (Esomeprazole Magnesium) 40 Mg Capsule.dr 1 Cap PO BID Calcium 600 + Vit D 800 Tab (Calcium Carbonate/Vitamin D3) 1 Each Tablet 1 Tab PO BID 30 Days Benefiber (Wheat Dextrin) 1 Each Powd.pack 1 Each PO DAILY Lisinopril 10 Mg Tablet 1 Tab PO DAILY Leflunomide 10 Mg Tablet 10 Mg PO DAILY Prednisone 2.5 Mg Tablet 5 Mg PO DAILY Metoprolol Tartrate 25 Mg Tablet 1 Tab PO DAILY Hydrocodone-Apap 5-325 (Hydrocodone Bit/Acetaminophen) 1 Tab Tablet 1 Tab PO PRN BID PRN Gabapentin 100 Mg Capsule 100 Mg PO PRN BID PRN Folic Acid 0.8 Mg Tablet 3 Mg PO DAILY Cymbalta (Duloxetine Hcl) 30 Mg Capsule.dr 1 Cap PO DAILY Prolia (Denosumab) 60 Mg/1 Ml Disp.syrin 1 Syr SQ [id number] 1 Days Celexa (Citalopram Hydrobromide) 10 Mg Tablet 1 Tab PO DAILY Alprazolam 0.25 Mg Tablet 0.25 Mg PO PRN DAILY PRN Vitals/I & O Vital Sign - Last 24 Hours 02/27/21 02/27/21 02/27/21 02/27/21 15:00 15:36 19:15 19:53 Temp 98.0 97.8 98.0 97.8 Pulse 75 84 Resp 16 20 B/P (MAP) 147/64 (91) 163/70 (101) Pulse Ox 100 100 98 99 O2 Delivery Nasal Cannula Nasal Cannula Nasal Cannula Nasal Cannula O2 Flow Rate 4.0 4.0 1.0 1.0 02/27/21 02/27/21 02/27/21 02/28/21 20:00 22:50 23:55 03:00 Temp 97.7 98.8 97.7 98.8 Pulse 86 86 79 Resp 22 18 B/P (MAP) 153/69 (97) 153/69 157/65 (95) Pulse Ox 97 98 O2 Delivery Nasal Cannula Nasal Cannula Nasal Cannula O2 Flow Rate 3.0 1.0 2.0 02/28/21 02/28/21 02/28/21 02/28/21 05:32 07:00 07:19 08:00 Temp 100.0 100.0 Pulse 83 92 Resp 18 B/P (MAP) 157/65 140/61 (87) Pulse Ox 98 98 O2 Delivery Nasal Cannula Nasal Cannula Nasal Cannula O2 Flow Rate 2.0 2.0 1.0 02/28/21 02/28/21 02/28/21 02/28/21 08:25 08:25 11:00 11:04 Temp 99.8 99.8 Pulse 85 85 91 91 Resp 19 B/P (MAP) 140/61 140/61 185/76 (112) 185/76 Pulse Ox 97 O2 Delivery Nasal Cannula O2 Flow Rate 1.0 02/28/21 02/28/21 02/28/21 02/28/21 11:30 11:36 12:23 14:03 Pulse 91 98 B/P (MAP) 185/76 145/60 Pulse Ox 97 97 O2 Delivery Nasal Cannula Nasal Cannula O2 Flow Rate 1.0 1.0 Intake and Output 02/27/21 02/27/21 02/28/21 15:00 23:00 07:00 Intake Total 243 ml 50 ml 0 ml Output Total 55 ml 1260 ml Balance 243 ml -5 ml -1260 ml Justifications for Admission Other Justification RAO PATTON MD Feb 28, 2021 14:41
--- NOTE | 2021-02-28 15:28 | NUR ---
Wound/Ostomy Care Wound Type/Assessment: Wound care follow up for stage I PU to right medial leg and DTI to right heel. Complete head to toe assessment completed. Left heel is red but blanchable, foam applied for protection. See skin intervention for further details. All wounds cleansed and assessed. Treatment Recommendations/Plan: Cleanse all wounds and pat dry. Right heel: paint with skin prep and apply foam. Use heel medix boots for offloading. Change dressing q3-4 days Left heel: apply foam for protection Dressings applied. Education provided: Patient alert with minimal confusion, alert and able to follow commands and is very pleasant. at bedside for PU treatment and management. Offloading surface/device: Turn q2h hours, patient turned to left side using purple wedge, heel medix boots placed back on patient Recommended Referrals/Tests: N/A Discharge Recommendations for dressings: Dressing change instructions left in room. Bed lowered and call light in reach. Wound care will f/u on 03/07.
[2021-02-28] MEDS: ENOXAPARIN 40 MG/0.4 ML SYRINGE. SQ SCH (18:00)
--- NOTE | 2021-02-28 19:18 | NUR ---
CALL PLACED TO RE: PT PICC LINE STATUS AND USE, ORDERS RECEIVED TO HOLD TPN FOR TONIGHT AND START CLINIMIX.
--- NOTE | 2021-02-28 19:40 | NUR ---
Pt in bed at bedside assessment completed vss with elevated temperature pt face is flushed pt denied pain at this time poc explained to pt questions and concerns answered call light in reach will resume care and continue to monitor pt.
[2021-02-28] MEDS: INSULIN GLARGINE SYRINGE. SQ SCH (20:17)
[2021-02-28] MEDS: ACETAMINOPHEN 650 MG SUPP.RECT. PR PRN (20:17)
[2021-02-28] MEDS: AA 4.25 %/CALCIUM/LYTES/D5W 1,000 ML IV SCH (21:47)
[2021-02-28] MEDS ORDERED: [UNRECOGNIZED DRUG - OTHER] IV SCH (22:00)
[2021-02-28] MEDS ORDERED: TOTAL PARENTERAL NUTRITION IV SCH (22:00)
[2021-02-28] MEDS ORDERED: AMINO ACID IV SCH (22:00)
[2021-02-28] MEDS ORDERED: DEXTROSE 70% IV SCH (22:00)
[2021-03-01] VITALS (7 sets, daily range): BP systolic 117–152; BP diastolic 56–66
[2021-03-01] MEDS: NITROGLYCERIN OINT 1 GM PACKET. TP SCH ×5 (00:16→23:32)
[2021-03-01] MEDS: PIPERACILLIN/TAZOBACTAM 3.375 GM in IV NORMAL SALINE 50ML 50 ML IV SCH ×5 (00:21→23:32)
[2021-03-01] MEDS: ACETAMINOPHEN 650 MG SUPP.RECT. PR PRN (06:06)
[2021-03-01] MEDS: INSULIN LISPRO 300 UNITS/3 ML VIAL. SQ SCH ×4 (07:30→21:18)
[2021-03-01] MEDS: IPRATROPIUM BROMIDE 0.5 MG/2.5 ML NEBU. NEB SCH ×4 (07:46→20:38)
[2021-03-01] MEDS: BUDESONIDE 0.5 MG/2 ML NEBU. NEB SCH ×2 (07:46→20:38)
[2021-03-01 08:39] LABS: CALCIUM 6.5 mg/dL (8.5-10.1); CREATININE 0.8 mg/dL (0.6-1.0); GFR 69.6; MAGNESIUM 1.9 mg/dL (1.8-2.4); PHOSPHORUS 3.9 mg/dL (2.6-4.7); POTASSIUM 3.9 mmol/L (3.5-5.1)
[2021-03-01] MEDS: TPN PER PHARMACY MC PRN ×3 (08:42→10:14)
--- NOTE | 2021-03-01 08:44 | PDOC ---
PULMONARY PROGRESS NOTES DATE: 03/01/21 TIME: 08:44 Subjective Patient very weak, sitting up in the chair. Patient is with no new respiratory complaint Vitals Vital Signs Date Time Temp Pulse Resp B/P (MAP) Pulse Ox O2 Delivery O2 Flow Rate FiO2 03/01/21 07:47 98 Nasal Cannula 2.0 03/01/21 06:23 100.5 88 21 144/64 (90) 100.5 Comments ros as mentioned above other sys otherwise neg General: Alert, No acute distress Lungs: Clear Cardiovascular: S1 Abdomen: Soft, Other (Tender in the lower quadrants) Extremities: Other (Marked edema) Skin: Warm Labs Laboratory Tests Test 02/27/21 11:30 02/27/21 14:25 02/27/21 17:41 02/27/21 20:36 Glucose (Fingerstick) 155 mg/dL (70-99) 226 mg/dL (70-99) 185 mg/dL (70-99) Sodium Level 144 mmol/L (136-145) Potassium Level 4.9 mmol/L (3.5-5.1) Chloride Level 111 mmol/L (98-107) Carbon Dioxide Level 25 mmol/L (21-32) Anion Gap 8 (6-14) Blood Urea Nitrogen 17 mg/dL (7-20) Creatinine 0.7 mg/dL (0.6-1.0) Estimated GFR (Cockcroft-Gault) 81.1 BUN/Creatinine Ratio 24 (6-20) Glucose Level 207 mg/dL (70-99) Calcium Level 6.8 mg/dL (8.5-10.1) Total Bilirubin 0.6 mg/dL (0.2-1.0) Aspartate Amino Transf (AST/SGOT) 37 U/L (15-37) Alanine Aminotransferase (ALT/SGPT) 63 U/L (14-59) Alkaline Phosphatase 81 U/L (46-116) Total Protein 4.9 g/dL (6.4-8.2) Albumin 1.8 g/dL (3.4-5.0) Albumin/Globulin Ratio 0.6 (1.0-1.7) Test 02/28/21 05:35 02/28/21 07:47 02/28/21 11:47 02/28/21 13:15 White Blood Count 16.0 x10^3/uL (4.0-11.0) Hemoglobin 6.7 g/dL (12.0-15.5) Hematocrit 20.8 % (36.0-47.0) Platelet Count 132 x10^3/uL (140-400) Sodium Level 139 mmol/L (136-145) Potassium Level 4.4 mmol/L (3.5-5.1) Chloride Level 107 mmol/L (98-107) Carbon Dioxide Level 26 mmol/L (21-32) Anion Gap 6 (6-14) Blood Urea Nitrogen 12 mg/dL (7-20) Creatinine 0.7 mg/dL (0.6-1.0) Estimated GFR (Cockcroft-Gault) 81.1 Glucose Level 98 mg/dL (70-99) Calcium Level 6.6 mg/dL (8.5-10.1) C-Reactive Protein, Quantitative 31.3 mg/L (0-3.3) Glucose (Fingerstick) 116 mg/dL (70-99) 101 mg/dL (70-99) Lactic Acid Level 1.1 mmol/L (0.4-2.0) Test 02/28/21 17:10 02/28/21 17:13 02/28/21 20:16 02/28/21 23:53 SARS-CoV-2 Antigen (Rapid) Negative (NEGATIVE) Glucose (Fingerstick) 132 mg/dL (70-99) 141 mg/dL (70-99) 151 mg/dL (70-99) Test 03/01/21 06:01 03/01/21 06:10 Glucose (Fingerstick) 133 mg/dL (70-99) Sodium Level 140 mmol/L (136-145) Potassium Level 3.9 mmol/L (3.5-5.1) Chloride Level 108 mmol/L (98-107) Carbon Dioxide Level 23 mmol/L (21-32) Anion Gap 9 (6-14) Blood Urea Nitrogen 17 mg/dL (7-20) Creatinine 0.8 mg/dL (0.6-1.0) Estimated GFR (Cockcroft-Gault) 69.6 Glucose Level 134 mg/dL (70-99) Calcium Level 6.5 mg/dL (8.5-10.1) Phosphorus Level 3.9 mg/dL (2.6-4.7) Magnesium Level 1.9 mg/dL (1.8-2.4) Laboratory Tests Test 02/28/21 11:47 02/28/21 13:15 02/28/21 17:10 02/28/21 17:13 Glucose (Fingerstick) 101 mg/dL (70-99) 132 mg/dL (70-99) Lactic Acid Level 1.1 mmol/L (0.4-2.0) SARS-CoV-2 Antigen (Rapid) Negative (NEGATIVE) Test 02/28/21 20:16 02/28/21 23:53 03/01/21 06:01 03/01/21 06:10 Glucose (Fingerstick) 141 mg/dL (70-99) 151 mg/dL (70-99) 133 mg/dL (70-99) Sodium Level 140 mmol/L (136-145) Potassium Level 3.9 mmol/L (3.5-5.1) Chloride Level 108 mmol/L (98-107) Carbon Dioxide Level 23 mmol/L (21-32) Anion Gap 9 (6-14) Blood Urea Nitrogen 17 mg/dL (7-20) Creatinine 0.8 mg/dL (0.6-1.0) Estimated GFR (Cockcroft-Gault) 69.6 Glucose Level 134 mg/dL (70-99) Calcium Level 6.5 mg/dL (8.5-10.1) Phosphorus Level 3.9 mg/dL (2.6-4.7) Magnesium Level 1.9 mg/dL (1.8-2.4) Medications Active Scripts Medications Dose Route/Sig Max Daily Dose Days Date Category Vitamin B12 (Cyanocobalamin (Vitamin B-12)) 2,500 Mcg Tablet 500 Mg PO BID 02/15/21 Reported Nexium Capsule (Esomeprazole Magnesium) 40 Mg Capsule.dr 1 Cap PO BID 02/15/21 Reported Calcium 600 + Vit D 800 Tab (Calcium Carbonate/Vitamin D3) 1 Each Tablet 1 Tab PO BID 30 02/15/21 Reported Benefiber (Wheat Dextrin) 1 Each Powd.pack 1 Each PO DAILY 02/15/21 Reported Lisinopril 10 Mg Tablet 1 Tab PO DAILY 02/15/21 Reported Leflunomide 10 Mg Tablet 10 Mg PO DAILY 02/15/21 Reported Prednisone 2.5 Mg Tablet 5 Mg PO DAILY 02/15/21 Reported Metoprolol Tartrate 25 Mg Tablet 1 Tab PO DAILY 02/15/21 Reported Hydrocodone-Apap 5-325 (Hydrocodone Bit/Acetaminophen) 1 Tab Tablet 1 Tab PO PRN BID PRN 02/15/21 Reported Gabapentin 100 Mg Capsule 100 Mg PO PRN BID PRN 02/15/21 Reported Folic Acid 0.8 Mg Tablet 3 Mg PO DAILY 02/15/21 Reported Cymbalta (Duloxetine Hcl) 30 Mg Capsule.dr 1 Cap PO DAILY 02/15/21 Reported Prolia (Denosumab) 60 Mg/1 Ml Disp.syrin 1 Syr SQ [id number] 1 02/15/21 Reported Celexa (Citalopram Hydrobromide) 10 Mg Tablet 1 Tab PO DAILY 02/15/21 Reported Alprazolam 0.25 Mg Tablet 0.25 Mg PO PRN DAILY PRN 02/15/21 Reported Impression . IMPRESSION: 1. Acute hypoxemic respiratory failure, multifactorial. 2. Abnormal x-ray, compatible with effusion, possibly congestive heart failure. Possible pneumonia. She does have underlying interstitial lung disease likely related to rheumatoid arthritis. 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 A. fib with rapid ventricular response, controlled 4. Leukocytosis. 5. Fever. resolved 6. Status post large ventral hernia repair on 02/13. 7. Rheumatoid arthritis with previously diagnosed as interstitial lung disease. 8. Hypertension. 9. Breast cancer, status post radiation. 10. Tobacco dependence, in remission. 11. Chronic obstructive pulmonary disease, unknown FEV1 12. Multifactorial encephalopathy/delirium/toxic 13. Hyponatremia, 14. Debility, weakness Plan . Updated 02/27 Continue current support Antibiotics per ID Up to chair Oxygen supplementation PT OT updated 02/26 continue oxygen supplementation Avoid narcotics Antibiotics per ID Discussed with ASHLY MCDONOUGH MD Mar 01, 2021 08:44
[2021-03-01 08:47] LABS: BASO % 0 % (0-3); EOS # 0.1 x10^3/uL (0.0-0.7); EOS % 1 % (0-3); HEMOGLOBIN 8.1 g/dL (12.0-15.5); LYMPH # 0.2 x10^3/uL (1.0-4.8); LYMPH % 2 % (24-48); MEAN CORPUSCULAR HEMOGLOBIN 30 pg (25-35); MEAN CORPUSCULAR HGB CONC 33 g/dL (31-37); MEAN CORPUSCULAR VOLUME 92 fL (79-100); MONO # 0.4 x10^3/uL (0.0-1.1); MONO % 4 % (0-9); NEUT # 8.8 x10^3/uL (1.8-7.7); NEUT % 93 % (31-73); PLATELET COUNT 115 x10^3/uL (140-400); RED BLOOD COUNT 2.73 x10^6/uL (3.50-5.40); RED CELL DISTRIBUTION WIDTH 15.6 % (11.5-14.5); WHITE BLOOD COUNT 9.5 x10^3/uL (4.0-11.0)
[2021-03-01] MEDS: LACTOBACILLUS RHAMNOSUS GG 1 CAPSULE. PO SCH ×2 (09:00→21:17)
[2021-03-01] MEDS: LISINOPRIL 10 MG TABLET PO SCH (09:00)
[2021-03-01] MEDS: FAMOTIDINE 20 MG TABLET. PO SCH ×2 (09:00→21:17)
--- NOTE | 2021-03-01 09:01 | PDOC ---
LELA MARIE LOFT RIGGER 03/01/21 0901: SURGICAL PROGRESS NOTE DATE: 03/01/21 TIME: 08:59 Subjective no abdominal pain coughing up some phlegm no stool in a few days Vital Signs Vital Signs Date Time Temp Pulse Resp B/P (MAP) Pulse Ox O2 Delivery O2 Flow Rate FiO2 03/01/21 07:47 98 Nasal Cannula 2.0 03/01/21 06:23 100.5 88 21 144/64 (90) 100.5 I&O Intake and Output 03/01/21 07:00 Intake Total 708 ml Output Total 2475 ml Balance -1767 ml Intake Oral 100 ml IV Total 608 ml Output Urine Total 2350 ml Drainage Total 125 ml General: Other (ill appearing ) Abdomen: Soft, Other (NTTP, incision without signs of infection, drains serosang ) Labs Laboratory Tests Test 02/27/21 11:30 02/27/21 14:25 02/27/21 17:41 02/27/21 20:36 Glucose (Fingerstick) 155 mg/dL (70-99) 226 mg/dL (70-99) 185 mg/dL (70-99) Sodium Level 144 mmol/L (136-145) Potassium Level 4.9 mmol/L (3.5-5.1) Chloride Level 111 mmol/L (98-107) Carbon Dioxide Level 25 mmol/L (21-32) Anion Gap 8 (6-14) Blood Urea Nitrogen 17 mg/dL (7-20) Creatinine 0.7 mg/dL (0.6-1.0) Estimated GFR (Cockcroft-Gault) 81.1 BUN/Creatinine Ratio 24 (6-20) Glucose Level 207 mg/dL (70-99) Calcium Level 6.8 mg/dL (8.5-10.1) Total Bilirubin 0.6 mg/dL (0.2-1.0) Aspartate Amino Transf (AST/SGOT) 37 U/L (15-37) Alanine Aminotransferase (ALT/SGPT) 63 U/L (14-59) Alkaline Phosphatase 81 U/L (46-116) Total Protein 4.9 g/dL (6.4-8.2) Albumin 1.8 g/dL (3.4-5.0) Albumin/Globulin Ratio 0.6 (1.0-1.7) Test 02/28/21 05:35 02/28/21 07:47 02/28/21 11:47 02/28/21 13:15 White Blood Count 16.0 x10^3/uL (4.0-11.0) Hemoglobin 6.7 g/dL (12.0-15.5) Hematocrit 20.8 % (36.0-47.0) Platelet Count 132 x10^3/uL (140-400) Sodium Level 139 mmol/L (136-145) Potassium Level 4.4 mmol/L (3.5-5.1) Chloride Level 107 mmol/L (98-107) Carbon Dioxide Level 26 mmol/L (21-32) Anion Gap 6 (6-14) Blood Urea Nitrogen 12 mg/dL (7-20) Creatinine 0.7 mg/dL (0.6-1.0) Estimated GFR (Cockcroft-Gault) 81.1 Glucose Level 98 mg/dL (70-99) Calcium Level 6.6 mg/dL (8.5-10.1) C-Reactive Protein, Quantitative 31.3 mg/L (0-3.3) Glucose (Fingerstick) 116 mg/dL (70-99) 101 mg/dL (70-99) Lactic Acid Level 1.1 mmol/L (0.4-2.0) Test 02/28/21 17:10 02/28/21 17:13 02/28/21 20:16 02/28/21 23:53 SARS-CoV-2 Antigen (Rapid) Negative (NEGATIVE) Glucose (Fingerstick) 132 mg/dL (70-99) 141 mg/dL (70-99) 151 mg/dL (70-99) Test 03/01/21 06:01 03/01/21 06:10 Glucose (Fingerstick) 133 mg/dL (70-99) White Blood Count 9.5 x10^3/uL (4.0-11.0) Red Blood Count 2.73 x10^6/uL (3.50-5.40) Hemoglobin 8.1 g/dL (12.0-15.5) Hematocrit 25.0 % (36.0-47.0) Mean Corpuscular Volume 92 fL (79-100) Mean Corpuscular Hemoglobin 30 pg (25-35) Mean Corpuscular Hemoglobin Concent 33 g/dL (31-37) Red Cell Distribution Width 15.6 % (11.5-14.5) Platelet Count 115 x10^3/uL (140-400) Neutrophils (%) (Auto) 93 % (31-73) Lymphocytes (%) (Auto) 2 % (24-48) Monocytes (%) (Auto) 4 % (0-9) Eosinophils (%) (Auto) 1 % (0-3) Basophils (%) (Auto) 0 % (0-3) Neutrophils # (Auto) 8.8 x10^3/uL (1.8-7.7) Lymphocytes # (Auto) 0.2 x10^3/uL (1.0-4.8) Monocytes # (Auto) 0.4 x10^3/uL (0.0-1.1) Eosinophils # (Auto) 0.1 x10^3/uL (0.0-0.7) Basophils # (Auto) 0.0 x10^3/uL (0.0-0.2) Sodium Level 140 mmol/L (136-145) Potassium Level 3.9 mmol/L (3.5-5.1) Chloride Level 108 mmol/L (98-107) Carbon Dioxide Level 23 mmol/L (21-32) Anion Gap 9 (6-14) Blood Urea Nitrogen 17 mg/dL (7-20) Creatinine 0.8 mg/dL (0.6-1.0) Estimated GFR (Cockcroft-Gault) 69.6 Glucose Level 134 mg/dL (70-99) Calcium Level 6.5 mg/dL (8.5-10.1) Phosphorus Level 3.9 mg/dL (2.6-4.7) Magnesium Level 1.9 mg/dL (1.8-2.4) Laboratory Tests Test 02/28/21 11:47 02/28/21 13:15 02/28/21 17:10 02/28/21 17:13 Glucose (Fingerstick) 101 mg/dL (70-99) 132 mg/dL (70-99) Lactic Acid Level 1.1 mmol/L (0.4-2.0) SARS-CoV-2 Antigen (Rapid) Negative (NEGATIVE) Test 02/28/21 20:16 02/28/21 23:53 03/01/21 06:01 03/01/21 06:10 Glucose (Fingerstick) 141 mg/dL (70-99) 151 mg/dL (70-99) 133 mg/dL (70-99) White Blood Count 9.5 x10^3/uL (4.0-11.0) Red Blood Count 2.73 x10^6/uL (3.50-5.40) Hemoglobin 8.1 g/dL (12.0-15.5) Hematocrit 25.0 % (36.0-47.0) Mean Corpuscular Volume 92 fL (79-100) Mean Corpuscular Hemoglobin 30 pg (25-35) Mean Corpuscular Hemoglobin Concent 33 g/dL (31-37) Red Cell Distribution Width 15.6 % (11.5-14.5) Platelet Count 115 x10^3/uL (140-400) Neutrophils (%) (Auto) 93 % (31-73) Lymphocytes (%) (Auto) 2 % (24-48) Monocytes (%) (Auto) 4 % (0-9) Eosinophils (%) (Auto) 1 % (0-3) Basophils (%) (Auto) 0 % (0-3) Neutrophils # (Auto) 8.8 x10^3/uL (1.8-7.7) Lymphocytes # (Auto) 0.2 x10^3/uL (1.0-4.8) Monocytes # (Auto) 0.4 x10^3/uL (0.0-1.1) Eosinophils # (Auto) 0.1 x10^3/uL (0.0-0.7) Basophils # (Auto) 0.0 x10^3/uL (0.0-0.2) Sodium Level 140 mmol/L (136-145) Potassium Level 3.9 mmol/L (3.5-5.1) Chloride Level 108 mmol/L (98-107) Carbon Dioxide Level 23 mmol/L (21-32) Anion Gap 9 (6-14) Blood Urea Nitrogen 17 mg/dL (7-20) Creatinine 0.8 mg/dL (0.6-1.0) Estimated GFR (Cockcroft-Gault) 69.6 Glucose Level 134 mg/dL (70-99) Calcium Level 6.5 mg/dL (8.5-10.1) Phosphorus Level 3.9 mg/dL (2.6-4.7) Magnesium Level 1.9 mg/dL (1.8-2.4) Assessment/Plan medical management wbc normal, hgb improved Justicifation of Admission Dx: Justifications for Admission: Justification of Admission Dx: Yes RAO PATTON MD 03/01/21 1136: SURGICAL PROGRESS NOTE Assessment/Plan Continue supportive management LELA MARIE APRN Mar 01, 2021 09:01 RAO PATTON MD Mar 01, 2021 11:36
[2021-03-01] MEDS: NYSTATIN 100,000 UNITS/ML 5 ML ORAL.SUSP. SWSW SCH ×4 (09:47→21:09)
--- NOTE | 2021-03-01 09:52 | PDOC ---
Infectious Disease Note Subjective: Subjective I been asked to see patient again for antibiotic management See last ID consult for full details See last ID note for details Patient has fevers with leukocytosis Started on Zosyn Chest x-ray done Blood cultures done Remains n.p.o. On 2 L O2 by nasal cannula Continues to have cough She denies any abdominal pain Denies any symptoms Vital Signs: Vital Signs Vital Signs Date Time Temp Pulse Resp B/P (MAP) Pulse Ox O2 Delivery O2 Flow Rate FiO2 03/01/21 07:47 98 Nasal Cannula 2.0 03/01/21 06:23 100.5 88 21 144/64 (90) 100.5 Physical Exam: PHYSICAL EXAM GENERAL: Sleepy but arousable HEENT: Normocephalic, atraumatic. Anicteric. Dry mouth NECK: Supple. No JVD. LUNGS: Rales present + for wheezing HEART: Irregularly irregular no murmurs appreciated ABDOMEN: Obese , distended binder in place, not taken down, intact dry Hypoactive bowel sounds [address] EXTREMITIES mild edema present, no cyanosis MUSCULOSKELETAL: No joint swelling. No decrease in range of motion. CENTRAL NERVOUS SYSTEM: Sleepy, arousable PSYCHIATRIC: Cooperative, sleepy PICC line clean Medications: Inpatient Meds: Medications reviewed. Labs: Lab Laboratory Tests Test 02/28/21 11:47 02/28/21 13:15 02/28/21 17:10 02/28/21 17:13 Glucose (Fingerstick) 101 mg/dL (70-99) 132 mg/dL (70-99) Lactic Acid Level 1.1 mmol/L (0.4-2.0) SARS-CoV-2 Antigen (Rapid) Negative (NEGATIVE) Test 02/28/21 20:16 02/28/21 23:53 03/01/21 06:01 03/01/21 06:10 Glucose (Fingerstick) 141 mg/dL (70-99) 151 mg/dL (70-99) 133 mg/dL (70-99) White Blood Count 9.5 x10^3/uL (4.0-11.0) Red Blood Count 2.73 x10^6/uL (3.50-5.40) Hemoglobin 8.1 g/dL (12.0-15.5) Hematocrit 25.0 % (36.0-47.0) Mean Corpuscular Volume 92 fL (79-100) Mean Corpuscular Hemoglobin 30 pg (25-35) Mean Corpuscular Hemoglobin Concent 33 g/dL (31-37) Red Cell Distribution Width 15.6 % (11.5-14.5) Platelet Count 115 x10^3/uL (140-400) Neutrophils (%) (Auto) 93 % (31-73) Lymphocytes (%) (Auto) 2 % (24-48) Monocytes (%) (Auto) 4 % (0-9) Eosinophils (%) (Auto) 1 % (0-3) Basophils (%) (Auto) 0 % (0-3) Neutrophils # (Auto) 8.8 x10^3/uL (1.8-7.7) Lymphocytes # (Auto) 0.2 x10^3/uL (1.0-4.8) Monocytes # (Auto) 0.4 x10^3/uL (0.0-1.1) Eosinophils # (Auto) 0.1 x10^3/uL (0.0-0.7) Basophils # (Auto) 0.0 x10^3/uL (0.0-0.2) Sodium Level 140 mmol/L (136-145) Potassium Level 3.9 mmol/L (3.5-5.1) Chloride Level 108 mmol/L (98-107) Carbon Dioxide Level 23 mmol/L (21-32) Anion Gap 9 (6-14) Blood Urea Nitrogen 17 mg/dL (7-20) Creatinine 0.8 mg/dL (0.6-1.0) Estimated GFR (Cockcroft-Gault) 69.6 Glucose Level 134 mg/dL (70-99) Calcium Level 6.5 mg/dL (8.5-10.1) Phosphorus Level 3.9 mg/dL (2.6-4.7) Magnesium Level 1.9 mg/dL (1.8-2.4) Objective: Assessment: Patient with prolonged hospitalization Fever Status post large ventral hernia repair on February 12, 2021, drains in place Possible aspiration pneumonia Encephalopathy appears metabolic improved Leukocytosis was on steroids Anemia that is post blood transfusion A. fib with RVR CHF Renal insufficiency Rheumatoid arthritis Depression History of breast cancer Hypertension Dysphagia Plan: Plan of Care Continue Zosyn Send sputum for Gram stain and culture Add daptomycin DC PICC line, send catheter tip for cultures, has PIV General surgery following Continue local wound care/drain management as directed Continue aspiration precautions PT and OT as tolerated Prognosis poor Discussed with at bedside Discussed with Dr. Caro and MELINDA WALLACE MD Mar 01, 2021 09:52
[2021-03-01] MEDS ORDERED: FUROSEMIDE 40 MG/4 ML VIAL. IVP ONE (10:00)
--- NOTE | 2021-03-01 10:18 | NUR ---
Pharmacy TPN Dosing Note S: LYNDSEY JOSUE is a 75 year old F Currently receiving Central Continuous TPN started 02/16/21 B:Pertinent PMH: NPO s/p hernia repair Height: 4 feet, 9 inches Weight: 76.9 kg Current diet: clears LABS: Sodium: 140 Potassium: 3.9 Chloride: 108 Calcium: 6.5 Corrected Calcium: 8.26 Magnesium: 1.9 CO2: 23 SCr: 0.8 Glucose: 134 Albumin: 1.8 AST: 22 ALT: 26 TPN FORMULA: TPN TYPE: Central Continuous AMINO ACIDS: 60 gm DEXTROSE: 195 gm LIPIDS: 20 gm SODIUM CHLORIDE: 90 mEq SODIUM ACETATE: -- mEq SODIUM PHOSPHATE: -- mmol POTASSIUM CHLORIDE: 50 mEq POTASSIUM ACETATE: -- mEq POTASSIUM PHOSPHATE: 13.6 mmol MAGNESIUM: 6 mEq CALCIUM: 14 mEq INSULIN: -- units MULTIPLE VITAMIN: 10 ml TRACE ELEMENTS: 1 ml(s) TPN PLAN: 03/01 Corrected calcium is low, increase Ca in tpn. R: Continue TPN as ordered Will monitor electrolytes, glucose, and tolerance to TPN. SUSAN CROOK [facility], 03/01/21 1018
[2021-03-01] MEDS ORDERED: methylPREDNISolone SOD SUCC PF 40 MG/ML VIAL. IV SCH (11:00)
[2021-03-01] MEDS ORDERED: DAPTOmycin (GENERIC) IVPB 330 MG in IV NORMAL SALINE 50ML 50 ML IV SCH (11:15)
[2021-03-01] MEDS: methylPREDNISolone SOD SUCC PF 40 MG/ML VIAL. IV SCH (11:41)
--- NOTE | 2021-03-01 11:43 | NUR ---
SS following up with discharge planning. SS reviewed pt chart and discussed with pt RN. Pt is currently requiring oxygen at two liters nasal canula. COVID19 negative. Pt had fevers this AM. Diueresing today. NPO. ST following. Pt on IV Daptomycin, IV Solu-Medrol, IV Zosyn, and Clinimix. TPN ordered. PT/OT [facility]. Pt has benefits for LTACH and SNU. Pt's spouse has been adamant that he wants pt to return to home with [facility], ; fax [phone]. SS discussed with surgery and surgery reported that they will attempt to speak with pt's spouse regarding discharge recommendations. SS will continue to follow for discharge planning.
--- NOTE | 2021-03-01 12:49 | PDOC ---
CLIFFORD MERLOS 911 OPERATOR 03/01/21 1249: CARDIO Progress Notes Date and Time Date of Service 03/01/21 Time of Evaluation 1120 Subjective Subjective: No Chest Pain, No shortness of breath, No Palpitations Vitals Vitals Vital Signs Date Time Temp Pulse Resp B/P (MAP) Pulse Ox O2 Delivery O2 Flow Rate FiO2 03/01/21 11:42 78 128/60 03/01/21 11:37 98 Nasal Cannula 2.0 03/01/21 10:33 98.5 20 98.5 Weight Weight [ ] Input and Output Intake and Output Intake and Output 03/01/21 07:00 Intake Total 708 ml Output Total 2475 ml Balance -1767 ml Intake Oral 100 ml IV Total 608 ml Output Urine Total 2350 ml Drainage Total 125 ml Laboratory Labs Laboratory Tests Test 02/28/21 13:15 02/28/21 17:10 02/28/21 17:13 02/28/21 20:16 Lactic Acid Level 1.1 mmol/L (0.4-2.0) SARS-CoV-2 Antigen (Rapid) Negative (NEGATIVE) Glucose (Fingerstick) 132 mg/dL (70-99) 141 mg/dL (70-99) Test 02/28/21 23:53 03/01/21 06:01 03/01/21 06:10 03/01/21 12:06 Glucose (Fingerstick) 151 mg/dL (70-99) 133 mg/dL (70-99) 112 mg/dL (70-99) White Blood Count 9.5 x10^3/uL (4.0-11.0) Red Blood Count 2.73 x10^6/uL (3.50-5.40) Hemoglobin 8.1 g/dL (12.0-15.5) Hematocrit 25.0 % (36.0-47.0) Mean Corpuscular Volume 92 fL (79-100) Mean Corpuscular Hemoglobin 30 pg (25-35) Mean Corpuscular Hemoglobin Concent 33 g/dL (31-37) Red Cell Distribution Width 15.6 % (11.5-14.5) Platelet Count 115 x10^3/uL (140-400) Neutrophils (%) (Auto) 93 % (31-73) Lymphocytes (%) (Auto) 2 % (24-48) Monocytes (%) (Auto) 4 % (0-9) Eosinophils (%) (Auto) 1 % (0-3) Basophils (%) (Auto) 0 % (0-3) Neutrophils # (Auto) 8.8 x10^3/uL (1.8-7.7) Lymphocytes # (Auto) 0.2 x10^3/uL (1.0-4.8) Monocytes # (Auto) 0.4 x10^3/uL (0.0-1.1) Eosinophils # (Auto) 0.1 x10^3/uL (0.0-0.7) Basophils # (Auto) 0.0 x10^3/uL (0.0-0.2) Sodium Level 140 mmol/L (136-145) Potassium Level 3.9 mmol/L (3.5-5.1) Chloride Level 108 mmol/L (98-107) Carbon Dioxide Level 23 mmol/L (21-32) Anion Gap 9 (6-14) Blood Urea Nitrogen 17 mg/dL (7-20) Creatinine 0.8 mg/dL (0.6-1.0) Estimated GFR (Cockcroft-Gault) 69.6 Glucose Level 134 mg/dL (70-99) Calcium Level 6.5 mg/dL (8.5-10.1) Phosphorus Level 3.9 mg/dL (2.6-4.7) Magnesium Level 1.9 mg/dL (1.8-2.4) Physical Exam HEENT: Neck Supple W Full Motion Chest: Symmetric LUNGS: Other (diminished bases) Heart: RRR (SR) Abdomen: Other (obese; abdominal incision) Extremities: No Edema Neurology: alert, oriented, follow commands Assessment Assessment 1. S/p ventricular hernia repair 02/13: Continue postop care per general surgery 2. Post-op AFIB/flutter with RVR; maintaining SR with PACs and PVCs. Patient currently poor candidate for long-term anticoagulation secondary to anemia. 3. Acute respiratory failure with AECOPD, CHF. 4. Acute diastolic CHF; echo with preserved LV systolic function, s/p IV d iuresis. appears compensated 5. Hypertensive urgency: better controlled, but remains slightly elevated 6. Anemia, thrombocytopenia; s/p transfusion 02/28 7. H/o breast CA s/p radiation 8. Encephalopathy: resolved 9. Leukocytosis, fevers; BC obtained. as per ID Recommendations Start metoprolol IC q6 hrs for rate control while NPO Will hold off on ASA, OAC given anemia. Monitor hgb. Transfuse as warranted Continue post-op management per surgical team Supportive care Justicifation of Admission Dx: Justifications for Admission: Justification of Admission Dx: Yes ALICE LOVE MD 03/01/21 1617: CARDIO Progress Notes Assessment Assessment Patient seen and examined. Agree with RABBIT BREEDER's assessment and plan. Postoperative atrial fibrillation, presently maintaining sinus rhythm She is a poor candidate for long-term anticoagulation Acute on chronic diastolic heart failure better compensated Continue postop care per general surgery CLIFFORD MERLOS APRN Mar 01, 2021 12:49 ALICE LOVE MD Mar 01, 2021 16:17
--- NOTE | 2021-03-01 12:50 | PDOC ---
[employer] PROGRESS NOTE Date of Service DOS: DATE: 03/01/21 TIME: 12:49 Chief Complaint Chief Complaint A/P: Abdominal pain S/p ventricular hernia repair 02/13 Post-op AFIB/flutter with RVR - SR with PACs. on lovenox ppx dosing and IV metoprolol Acute respiratory failure - likely secondary to acute COPD and acute diastolic CHF worsened by Afib as above Acute diastolic CHF - cardiology following, Echo with no reduction in EF Hypertensive urgency - seems to be due to pain Anemia - hgb drift to 8.2 H/o breast CA s/p radiation Hyperkalemia - resolved Encephalopathy - remains lethargic Chronic obstructive pulmonary disease, unknown FEV1 Hypernatremia -nephrology following Possible aspiration pneumonia versus fluid overload-start Vanco Zosyn for broad- spectrum coverage. Line may need to be removed if blood cultures positive. ID reconsulted. Continue as needed IV Lasix History of Present Illness History of Present Illness Ms Dyson is a 75yo female w/ PMHx rheumatoid arthritis, depression, hypertension, breast cancer and prior colectomy who was admitted for a large ventral hernia repair which she underwent on February 13. Had done really well after surgery initially she was actually planning to start trialing liquids, but was transferred to ICU for concern for sepsis and new onset A. fib with RVR requiring a Cardizem drip, cardiology, Infectious Disease and pulmonary were consulted. Patient started on broad-spectrum antibiotics. Pulmonary following. 02/16: ICU today. Her condition has significantly improved since last night. She is awake alert and oriented able to answer questions says pain is under control. Blood pressure holding steady. Remains on Cardizem drip. Continue antibiotics today. Requesting to drink if she can, will defer this decision to surgery. 02/17: She is complaining about some shortness of breath but is feeling comfortable. We will try 1 dose of Lasix today based upon chest x-ray. 02/18: Evaluated at bedside. Patient resting in bed. Appears to be in normal sinus rhythm. No major clinical changes otherwise. 02/19: Evaluated at bedside. Patient resting in bed pursed lip breathing D/W XAVIER/ BLOCKER POLISHING, ABG pending d/w in room k 5.8 on tpn pharmacy to adjust k in tpn 02/20: Evaluated at bedside. D/W XAVIER/ BLOCKER POLISHING, ABG pending d/w in room k 5.8 on tpn pharmacy to adjust k in tpn 02/21: Transferred from ICU overnight. Still very confused. Family says she said hello. Moving all 4 extremities. Afebrile. NA 156. WBC 19.2, Hb 8.1. D/w family bedside. 02/22: NA 158. Afebrile. Asking for coffee. Still requiring 3L NCO2. D/w surgery given her deconditioning and need for IV nutrition she would need likely referral to LTACH. 02/23: NA 162. Afebrile. More alert. Asking for food. No BM. Very weak, d/w beside to consider LTACH. Chest radiograph with PICC crossing midline. Diet advanced 02/24: Afebrile overnight. Feeling a little worse. She is taking p.o. had some juice had a bowel movement. Chest radiograph revealed PICC has become malpositioned. IV on hold. Afebrile. NA 137. Feels a little hot. Has been upset about PICC and making sure she is getting her medications. Reassured she can appropriately medicated by mouth. She is asking for some cold to drink. Noted she still on thickened liquids 02/26 Patient evaluated at bedside. Still frustrated about PICC line, imaging shows it is in the left subclavian. From medical standpoint patient with hypernatremia of 162 today. Still mentating well. Nephrology following. Defer rest to primary surgical team 02/27 Patient evaluated at bedside, she does remain very weak still. 6 min walk ordered but question if she will be able to complete. Labs from today pending s till. 02/28 Patient evaluated and examined at bedside. Pretty lethargic this morning informed by bedside nurse she had a hemoglobin below 7 along with an elevated temperature to 100. Patient also was made n.p.o. today after speech evaluation concerned she is aspirating. Contacted surgical team who graciously evaluated the patient. Order chest x-ray patient does appear to have some fluid overload, discussed the case with Dr. Caro who recommended trying a dose of IV Lasix given her fluid overload on exam. Agreed with continuing antibiotics. We will continue to closely monitor. If she should worsen consider ICU transfer. 03/01 Patient evaluated and examined at bedside. She definitely does appear better but still relatively lethargic. Giving another dose of Lasix this morning as she is clinically fluid overloaded still. Remains n.p.o. per speech. Given leukocytosis and fevers will reconsult infectious disease. Vitals/I&O Vitals/I&O: Vital Signs Date Time Temp Pulse Resp B/P (MAP) Pulse Ox O2 Delivery O2 Flow Rate FiO2 03/01/21 11:42 78 128/60 03/01/21 11:37 98 Nasal Cannula 2.0 03/01/21 10:33 98.5 20 98.5 I & O 02/28/21 02/28/21 03/01/21 15:00 23:00 07:00 Intake Total 708 ml 0 ml Output Total 1300 ml 945 ml 230 ml Balance -592 ml -945 ml -230 ml Physical Exam Physical Exam: GENERAL: Sleepy but arousable HEENT: Normocephalic, atraumatic. Anicteric. Dry mouth NECK: Supple. No JVD. LUNGS: Rales present + for wheezing HEART: Irregularly irregular no murmurs appreciated ABDOMEN: Obese , distended binder in place, not taken down, intact dry Hypoactive bowel sounds [address] EXTREMITIES mild edema present, no cyanosis MUSCULOSKELETAL: No joint swelling. No decrease in range of motion. CENTRAL NERVOUS SYSTEM: Sleepy, arousable PSYCHIATRIC: Cooperative, sleepy PICC line clean General: Alert, Cooperative, Other (Patient resting in bed) Heart: Regular rate, Normal S1, Normal S2 Lungs: Clear Abdomen: Soft, Other (NTTP, incision without signs of infection, drains serosang ) Extremities: No edema, Normal pulses Skin: No significant lesion Labs Labs: Laboratory Tests Test 02/28/21 13:15 02/28/21 17:10 02/28/21 17:13 02/28/21 20:16 Lactic Acid Level 1.1 mmol/L (0.4-2.0) SARS-CoV-2 Antigen (Rapid) Negative (NEGATIVE) Glucose (Fingerstick) 132 mg/dL (70-99) 141 mg/dL (70-99) Test 02/28/21 23:53 03/01/21 06:01 03/01/21 06:10 03/01/21 12:06 Glucose (Fingerstick) 151 mg/dL (70-99) 133 mg/dL (70-99) 112 mg/dL (70-99) White Blood Count 9.5 x10^3/uL (4.0-11.0) Red Blood Count 2.73 x10^6/uL (3.50-5.40) Hemoglobin 8.1 g/dL (12.0-15.5) Hematocrit 25.0 % (36.0-47.0) Mean Corpuscular Volume 92 fL (79-100) Mean Corpuscular Hemoglobin 30 pg (25-35) Mean Corpuscular Hemoglobin Concent 33 g/dL (31-37) Red Cell Distribution Width 15.6 % (11.5-14.5) Platelet Count 115 x10^3/uL (140-400) Neutrophils (%) (Auto) 93 % (31-73) Lymphocytes (%) (Auto) 2 % (24-48) Monocytes (%) (Auto) 4 % (0-9) Eosinophils (%) (Auto) 1 % (0-3) Basophils (%) (Auto) 0 % (0-3) Neutrophils # (Auto) 8.8 x10^3/uL (1.8-7.7) Lymphocytes # (Auto) 0.2 x10^3/uL (1.0-4.8) Monocytes # (Auto) 0.4 x10^3/uL (0.0-1.1) Eosinophils # (Auto) 0.1 x10^3/uL (0.0-0.7) Basophils # (Auto) 0.0 x10^3/uL (0.0-0.2) Sodium Level 140 mmol/L (136-145) Potassium Level 3.9 mmol/L (3.5-5.1) Chloride Level 108 mmol/L (98-107) Carbon Dioxide Level 23 mmol/L (21-32) Anion Gap 9 (6-14) Blood Urea Nitrogen 17 mg/dL (7-20) Creatinine 0.8 mg/dL (0.6-1.0) Estimated GFR (Cockcroft-Gault) 69.6 Glucose Level 134 mg/dL (70-99) Calcium Level 6.5 mg/dL (8.5-10.1) Phosphorus Level 3.9 mg/dL (2.6-4.7) Magnesium Level 1.9 mg/dL (1.8-2.4) Comment Review of Relevant I have reviewed the following items keely (where applicable) has been applied. Medications: Current Medications Medications (Trade) Dose Ordered Sig/Isael Route PRN Reason Start Time Stop Time Status Last Admin Dose Admin Info (Tpn Per Pharmacy) 1 each PRN DAILY PRN MC SEE COMMENTS 02/28/21 13:15 03/01/21 10:14 Piperacillin Sod/ Tazobactam Sod 3.375 gm/Sodium Chloride 50 ml @ 100 mls/hr Q6HRS IV 02/28/21 13:30 03/01/21 11:41 Furosemide (Lasix) 40 mg 1X ONCE IVP 02/28/21 14:00 02/28/21 14:01 DC 02/28/21 13:41 Amino Acids/ Electrolytes/ Dextrose 1,000 ml @ 80 mls/hr [id number] IV 02/28/21 19:30 02/28/21 21:47 Acetaminophen (Tylenol Supp) 650 mg PRN Q6HRS PRN VA MILD PAIN / TEMP > 100.3'F 02/28/21 19:45 03/01/21 06:06 Furosemide (Lasix) 40 mg 1X ONCE IVP 03/01/21 10:00 03/01/21 10:01 DC 03/01/21 09:47 Methylprednisolone Sodium Succinate (SOLU-Medrol 40MG VIAL) 16 mg DAILY IV 03/01/21 12:00 03/01/21 11:41 Justifications for Admission Other Justification BENY HUGGINS MD Mar 01, 2021 12:50
[2021-03-01] MEDS: DAPTOmycin (GENERIC) IVPB 330 MG in IV NORMAL SALINE 50ML 50 ML IV SCH (13:58)
[2021-03-01] MEDS: METOPROLOL IV PUSH 5 MG/5 ML VIAL. IVP SCH ×3 (13:58→23:33)
[2021-03-01] MEDS: ENOXAPARIN 40 MG/0.4 ML SYRINGE. SQ SCH (17:50)
--- NOTE | 2021-03-01 19:10 | NUR ---
Assessment completed vss poc explained pt without c/o pain call light in reach will resume care and continue to monitor pt.
[2021-03-01] MEDS: AA 4.25 %/CALCIUM/LYTES/D5W 1,000 ML IV SCH ×2 (21:10→21:20)
[2021-03-01] MEDS: INSULIN GLARGINE SYRINGE. SQ SCH (21:17)
[2021-03-01] MEDS ORDERED: AMINO ACID IV SCH (22:00)
[2021-03-01] MEDS ORDERED: DEXTROSE 70% IV SCH (22:00)
[2021-03-01] MEDS ORDERED: TOTAL PARENTERAL NUTRITION IV SCH (22:00)
[2021-03-01] MEDS ORDERED: [UNRECOGNIZED DRUG - OTHER] IV SCH (22:00)
[2021-03-02] MEDS: ACETAMINOPHEN 650 MG SUPP.RECT. PR PRN (02:11)
[2021-03-02 02:41] VITALS: BP 151/64
[2021-03-02 04:22] LABS: CALCIUM 6.7 mg/dL (8.5-10.1); CREATININE 0.6 mg/dL (0.6-1.0); GFR 96.9; PHOSPHORUS 3.2 mg/dL (2.6-4.7); POTASSIUM 3.6 mmol/L (3.5-5.1)
[2021-03-02] MEDS: NITROGLYCERIN OINT 1 GM PACKET. TP SCH ×4 (05:49→23:07)
[2021-03-02] MEDS: METOPROLOL IV PUSH 5 MG/5 ML VIAL. IVP SCH ×4 (05:49→23:24)
[2021-03-02] MEDS: PIPERACILLIN/TAZOBACTAM 3.375 GM in IV NORMAL SALINE 50ML 50 ML IV SCH ×4 (05:50→23:19)
[2021-03-02 07:00] VITALS: BP 152/65
[2021-03-02] MEDS: INSULIN LISPRO 300 UNITS/3 ML VIAL. SQ SCH ×4 (07:30→21:00)
[2021-03-02] MEDS: BUDESONIDE 0.5 MG/2 ML NEBU. NEB SCH ×2 (07:39→19:38)
[2021-03-02] MEDS: IPRATROPIUM BROMIDE 0.5 MG/2.5 ML NEBU. NEB SCH ×4 (07:39→19:38)
[2021-03-02] MEDS: LACTOBACILLUS RHAMNOSUS GG 1 CAPSULE. PO SCH ×2 (08:51→21:00)
[2021-03-02] MEDS: FAMOTIDINE 20 MG TABLET. PO SCH (08:52)
[2021-03-02] MEDS: LISINOPRIL 10 MG TABLET PO SCH (08:52)
[2021-03-02] MEDS: NYSTATIN 100,000 UNITS/ML 5 ML ORAL.SUSP. SWSW SCH ×4 (08:53→21:00)
[2021-03-02] MEDS: methylPREDNISolone SOD SUCC PF 40 MG/ML VIAL. IV SCH (08:55)
--- NOTE | 2021-03-02 09:03 | PDOC ---
SURGICAL PROGRESS NOTE DATE: 03/02/21 TIME: 09:02 Subjective resting mild pain LUQ Vital Signs Vital Signs Date Time Temp Pulse Resp B/P (MAP) Pulse Ox O2 Delivery O2 Flow Rate FiO2 03/02/21 07:40 100 Nasal Cannula 2.0 03/02/21 07:00 97.5 80 18 152/65 (94) 97.5 I&O Intake and Output 03/02/21 07:00 Intake Total 150 ml Output Total 2905 ml Balance -2755 ml Intake Oral 0 ml IV Total 150 ml Output Urine Total 2850 ml Drainage Total 55 ml General: Cooperative, Other (more awake today) Abdomen: Soft, Other (incision intact, drains in place) Labs Laboratory Tests Test 02/28/21 11:47 02/28/21 13:15 02/28/21 17:10 02/28/21 17:13 Glucose (Fingerstick) 101 mg/dL (70-99) 132 mg/dL (70-99) Lactic Acid Level 1.1 mmol/L (0.4-2.0) SARS-CoV-2 Antigen (Rapid) Negative (NEGATIVE) Test 02/28/21 20:16 02/28/21 23:53 03/01/21 06:01 03/01/21 06:10 Glucose (Fingerstick) 141 mg/dL (70-99) 151 mg/dL (70-99) 133 mg/dL (70-99) White Blood Count 9.5 x10^3/uL (4.0-11.0) Red Blood Count 2.73 x10^6/uL (3.50-5.40) Hemoglobin 8.1 g/dL (12.0-15.5) Hematocrit 25.0 % (36.0-47.0) Mean Corpuscular Volume 92 fL (79-100) Mean Corpuscular Hemoglobin 30 pg (25-35) Mean Corpuscular Hemoglobin Concent 33 g/dL (31-37) Red Cell Distribution Width 15.6 % (11.5-14.5) Platelet Count 115 x10^3/uL (140-400) Neutrophils (%) (Auto) 93 % (31-73) Lymphocytes (%) (Auto) 2 % (24-48) Monocytes (%) (Auto) 4 % (0-9) Eosinophils (%) (Auto) 1 % (0-3) Basophils (%) (Auto) 0 % (0-3) Neutrophils # (Auto) 8.8 x10^3/uL (1.8-7.7) Lymphocytes # (Auto) 0.2 x10^3/uL (1.0-4.8) Monocytes # (Auto) 0.4 x10^3/uL (0.0-1.1) Eosinophils # (Auto) 0.1 x10^3/uL (0.0-0.7) Basophils # (Auto) 0.0 x10^3/uL (0.0-0.2) Sodium Level 140 mmol/L (136-145) Potassium Level 3.9 mmol/L (3.5-5.1) Chloride Level 108 mmol/L (98-107) Carbon Dioxide Level 23 mmol/L (21-32) Anion Gap 9 (6-14) Blood Urea Nitrogen 17 mg/dL (7-20) Creatinine 0.8 mg/dL (0.6-1.0) Estimated GFR (Cockcroft-Gault) 69.6 Glucose Level 134 mg/dL (70-99) Calcium Level 6.5 mg/dL (8.5-10.1) Phosphorus Level 3.9 mg/dL (2.6-4.7) Magnesium Level 1.9 mg/dL (1.8-2.4) Test 03/01/21 12:06 03/01/21 17:08 03/01/21 23:35 03/02/21 04:00 Glucose (Fingerstick) 112 mg/dL (70-99) 161 mg/dL (70-99) 148 mg/dL (70-99) Sodium Level 140 mmol/L (136-145) Potassium Level 3.6 mmol/L (3.5-5.1) Chloride Level 108 mmol/L (98-107) Carbon Dioxide Level 25 mmol/L (21-32) Anion Gap 7 (6-14) Blood Urea Nitrogen 24 mg/dL (7-20) Creatinine 0.6 mg/dL (0.6-1.0) Estimated GFR (Cockcroft-Gault) 96.9 Glucose Level 115 mg/dL (70-99) Calcium Level 6.7 mg/dL (8.5-10.1) Phosphorus Level 3.2 mg/dL (2.6-4.7) Magnesium Level 2.0 mg/dL (1.8-2.4) Test 03/02/21 05:54 Glucose (Fingerstick) 104 mg/dL (70-99) Laboratory Tests Test 03/01/21 12:06 03/01/21 17:08 03/01/21 23:35 03/02/21 04:00 Glucose (Fingerstick) 112 mg/dL (70-99) 161 mg/dL (70-99) 148 mg/dL (70-99) Sodium Level 140 mmol/L (136-145) Potassium Level 3.6 mmol/L (3.5-5.1) Chloride Level 108 mmol/L (98-107) Carbon Dioxide Level 25 mmol/L (21-32) Anion Gap 7 (6-14) Blood Urea Nitrogen 24 mg/dL (7-20) Creatinine 0.6 mg/dL (0.6-1.0) Estimated GFR (Cockcroft-Gault) 96.9 Glucose Level 115 mg/dL (70-99) Calcium Level 6.7 mg/dL (8.5-10.1) Phosphorus Level 3.2 mg/dL (2.6-4.7) Magnesium Level 2.0 mg/dL (1.8-2.4) Test 03/02/21 05:54 Glucose (Fingerstick) 104 mg/dL (70-99) Assessment/Plan no fevers in 24 hrs, more alert today supportive care Justicifation of Admission Dx: Justifications for Admission: Justification of Admission Dx: Yes LELA MARIE APRN Mar 02, 2021 09:03
--- NOTE | 2021-03-02 09:17 | RAD ---
EXAM: CHEST ONE VIEW. HISTORY: Shortness of breath. COMPARISON: 02/28/2021. FINDINGS: A frontal view of the chest is obtained. There is moderate elevation of the right hemidiaphragm. There are mild interstitial opacities with a basilar predominance. There is no pneumothorax or clear pleural effusion. The heart is not enlarged. There are atherosclerotic calcifications of the aorta. There are surgical clips in the left axilla. IMPRESSION: 1. Mild basilar predominant infiltrates are stable. Correlate for mild pulmonary edema or atypical pn eumonia. Electronically signed by: Iqra Appiah MD (03/02/2021 9:14 AM) [id number]
--- NOTE | 2021-03-02 10:03 | PDOC ---
Infectious Disease Note Subjective: Subjective Patient feels better today Less shortness of breath and cough Abdominal pain is under control Denies any fevers or chills Vital Signs: Vital Signs Vital Signs Date Time Temp Pulse Resp B/P (MAP) Pulse Ox O2 Delivery O2 Flow Rate FiO2 03/02/21 07:40 100 Nasal Cannula 2.0 03/02/21 07:00 97.5 80 18 152/65 (94) 97.5 Physical Exam: PHYSICAL EXAM GENERAL: Sleepy but arousable HEENT: Normocephalic, atraumatic. Anicteric. Dry mouth NECK: Supple. No JVD. LUNGS: Decreased breath sound at bases no wheezing HEART: Irregularly irregular no murmurs appreciated ABDOMEN: Obese , mildly distended Hypoactive bowel sounds [address] EXTREMITIES mild edema present, no cyanosis MUSCULOSKELETAL: No joint swelling. No decrease in range of motion. CENTRAL NERVOUS SYSTEM: Sleepy, arousable PSYCHIATRIC: Cooperative, calm PICC line removed Medications: Inpatient Meds: Medications reviewed. Labs: Lab Laboratory Tests Test 03/01/21 12:06 03/01/21 17:08 03/01/21 23:35 03/02/21 04:00 Glucose (Fingerstick) 112 mg/dL (70-99) 161 mg/dL (70-99) 148 mg/dL (70-99) Sodium Level 140 mmol/L (136-145) Potassium Level 3.6 mmol/L (3.5-5.1) Chloride Level 108 mmol/L (98-107) Carbon Dioxide Level 25 mmol/L (21-32) Anion Gap 7 (6-14) Blood Urea Nitrogen 24 mg/dL (7-20) Creatinine 0.6 mg/dL (0.6-1.0) Estimated GFR (Cockcroft-Gault) 96.9 Glucose Level 115 mg/dL (70-99) Calcium Level 6.7 mg/dL (8.5-10.1) Phosphorus Level 3.2 mg/dL (2.6-4.7) Magnesium Level 2.0 mg/dL (1.8-2.4) Test 03/02/21 05:54 Glucose (Fingerstick) 104 mg/dL (70-99) Objective: Assessment: Patient with prolonged hospitalization Fever Status post large ventral hernia repair on February 12, 2021, drains in place Possible aspiration pneumonia Encephalopathy appears metabolic improved Leukocytosis was on steroids Anemia that is post blood transfusion A. fib with RVR CHF Renal insufficiency Rheumatoid arthritis Depression History of breast cancer Hypertension Dysphagia Plan: Plan of Care Continue Zosyn and daptomycin PICC line has been discontinued Maintain PIV Follow-up repeat blood cultures Sputum cultures pending Maintain aspiration precaution PT and OT as tolerated Discussed with at bedside MELINDA MONTEMAYOR MD Mar 02, 2021 10:03
[2021-03-02] MEDS: TPN PER PHARMACY MC PRN (10:35)
--- NOTE | 2021-03-02 10:40 | NUR ---
Pharmacy TPN Dosing Note S: LYNDSEY JOSUE is a 75 year old F Currently receiving Central Continuous TPN started 02/16/21 B:Pertinent PMH: NPO s/p hernia repair Height: 4 feet, 9 inches Weight: 77.0 kg Current diet: clears LABS: Sodium: 140 Potassium: 3.6 Chloride: 108 Calcium: 6.7 Corrected Calcium: 8.46 Magnesium: 2 CO2: 25 SCr: 0.6 Glucose: 104-161 Albumin: 1.8 AST: 22 ALT: 26 TPN FORMULA: TPN TYPE: Central Continuous AMINO ACIDS: 60 gm DEXTROSE: 195 gm LIPIDS: 20 gm SODIUM CHLORIDE: 90 mEq POTASSIUM CHLORIDE: 50 mEq POTASSIUM PHOSPHATE: 13.6 mmol MAGNESIUM: 6 mEq CALCIUM: 14 mEq MULTIPLE VITAMIN: 10 ml TRACE ELEMENTS: 1 ml(s) TPN PLAN: Continue same R: Continue TPN Will monitor electrolytes, glucose, and tolerance to TPN. Migdalia Fernandes RPH, 03/02/21 1047
--- NOTE | 2021-03-02 10:41 | PDOC ---
ALVIN ORANTES ENCODING CLERK 03/02/21 1041: CARDIO Progress Notes Date and Time Date of Service 03/02/2021 Time of Evaluation 1010 Subjective Subjective: No Chest Pain, No shortness of breath, No Palpitations Vitals Vitals Vital Signs Date Time Temp Pulse Resp B/P (MAP) Pulse Ox O2 Delivery O2 Flow Rate FiO2 03/02/21 07:40 100 Nasal Cannula 2.0 03/02/21 07:00 97.5 80 18 152/65 (94) 97.5 Weight Weight [ ] Input and Output Intake and Output Intake and Output 03/02/21 07:00 Intake Total 150 ml Output Total 2905 ml Balance -2755 ml Intake Oral 0 ml IV Total 150 ml Output Urine Total 2850 ml Drainage Total 55 ml Laboratory Labs Laboratory Tests Test 03/01/21 12:06 03/01/21 17:08 03/01/21 23:35 03/02/21 04:00 Glucose (Fingerstick) 112 mg/dL (70-99) 161 mg/dL (70-99) 148 mg/dL (70-99) Sodium Level 140 mmol/L (136-145) Potassium Level 3.6 mmol/L (3.5-5.1) Chloride Level 108 mmol/L (98-107) Carbon Dioxide Level 25 mmol/L (21-32) Anion Gap 7 (6-14) Blood Urea Nitrogen 24 mg/dL (7-20) Creatinine 0.6 mg/dL (0.6-1.0) Estimated GFR (Cockcroft-Gault) 96.9 Glucose Level 115 mg/dL (70-99) Calcium Level 6.7 mg/dL (8.5-10.1) Phosphorus Level 3.2 mg/dL (2.6-4.7) Magnesium Level 2.0 mg/dL (1.8-2.4) Test 03/02/21 05:54 Glucose (Fingerstick) 104 mg/dL (70-99) Microbiology Micro Microbiology 03/01/21 Blood Culture - Preliminary, Resulted NO GROWTH AFTER 1 DAY Physical Exam HEENT: Neck Supple W Full Motion Chest: Symmetric LUNGS: Other (diminished bases) Heart: RRR (SR) Abdomen: Other (obese; abdominal incision) Extremities: No Edema Neurology: alert, oriented, follow commands Assessment Assessment 1. S/p ventricular hernia repair 02/13 2. Post-op AFIB/flutter with RVR; maintaining SR 3. Acute respiratory failure with AECOPD, CHF compensated 4. Acute diastolic CHF; echo with preserved LV systolic function, compensated 5. Hypertensive urgency: better 6. Anemia; S/P transfusion Hgb now at 8.1 7. H/o breast CA s/p radiation 8. Hyperkalemia; resolved 9. Encephalopathy: resolved 10. Hypernatremia: resolved nephrology following Recommendations Now NPO. IV lopressor for now and vasotec IV. NTG paste. [id number] 5 correlating with a 7.2% risk of stroke per year. Will hold off ASA with anemia for now. Continue post-op management per surgical team Supportive care Justicifation of Admission Dx: Justifications for Admission: Justification of Admission Dx: Yes ALICE LOVE MD 03/02/21 1436: CARDIO Progress Notes Assessment Assessment Patient seen and examined. Agree with LEAD SOFTWARE DEVELOPMENT ENGINEER's assessment and plan. Postoperative atrial fibrillation, presently maintaining sinus rhythm She is a poor candidate for long-term anticoagulation Acute on chronic diastolic heart failure better compensated Continue postop care per general surgery ALVIN ORANTES APRN Mar 02, 2021 10:41 ALICE LOVE MD Mar 02, 2021 14:36
[2021-03-02 11:00] VITALS: BP 137/60
[2021-03-02] MEDS: ENALAPRILAT 1.25 MG/ML VIAL. IVP SCH ×2 (12:00→18:00)
--- NOTE | 2021-03-02 12:01 | NUR ---
SS following up with discharge planning. SS reviewed pt chart and discussed with pt RN. Pt is currently requiring oxygen at two liters nasal canula. NPO and on Clinimix. COVID19 negative. Pt on IV Metoprolol, IV Daptomycin, IV Solu-Medrol, and IV Zosyn. PT/OT recommended fdc unit. Pt requiring LTACH at this time due to medical needs. SS contacted pt's spouse and discussed need for LTACH placement at this time. Pt's spouse reported that he is coming to the hospital to discuss further. He reported that he would discuss with his daughters and niece as well. SS will continue to follow for discharge planning. Addendum: 03/02/21 at 1441 by PLACIDO GARCIA SS SS met with pt's spouse and discussed LTACH and medical concerns. Pt's spouse made grievances regarding PT/OT questioning why they have not been working with her daily and more often. Pt's spouse reported that they also do not explain to him why they did not see pt each day. Pt's spouse requesting to speak with PT/OT director gleason operator network control supervisor. PT/OT Director and RN [employer] notified. SS discussed with Dr. Caro and Dr. Caro met with pt and spouse and spoke with pt's daughter via phone. Pt, pt's spouse, and pt's daughter now agreeable to [facility], ; fax [phone]. SS phoned and faxed referral to [facility]. SS will continue to follow for discharge planning.
--- NOTE | 2021-03-02 12:53 | PDOC ---
[facility] PROGRESS NOTE Date of Service DOS: DATE: 03/02/21 TIME: 12:47 Chief Complaint Chief Complaint A/P: Abdominal pain S/p ventricular hernia repair 02/13 Post-op AFIB/flutter with RVR - SR with PACs. on lovenox ppx dosing and IV metoprolol Acute respiratory failure - likely secondary to acute COPD and acute diastolic CHF worsened by Afib as above Acute diastolic CHF - cardiology following, Echo with no reduction in EF Hypertensive urgency - seems to be due to pain Anemia - hgb drift to 8.2 H/o breast CA s/p radiation Hyperkalemia - resolved Encephalopathy - remains lethargic Chronic obstructive pulmonary disease, unknown FEV1 Hypernatremia -nephrology following Possible aspiration pneumonia versus fluid overload-start Dapto Zosyn for broad- spectrum coverage. Line may need to be removed if blood cultures positive. ID reconsulted. Continue as needed IV Lasix History of Present Illness History of Present Illness Ms Dyson is a 75yo female w/ PMHx rheumatoid arthritis, depression, hypertension, breast cancer and prior colectomy who was admitted for a large ventral hernia repair which she underwent on February 13. Had done really well after surgery initially she was actually planning to start trialing liquids, but was transferred to ICU for concern for sepsis and new onset A. fib with RVR requiring a Cardizem drip, cardiology, Infectious Disease and pulmonary were consulted. Patient started on broad-spectrum antibiotics. Pulmonary following. 02/16: ICU today. Her condition has significantly improved since last night. She is awake alert and oriented able to answer questions says pain is under control. Blood pressure holding steady. Remains on Cardizem drip. Continue antibiotics today. Requesting to drink if she can, will defer this decision to surgery. 02/17: She is complaining about some shortness of breath but is feeling comfortable. We will try 1 dose of Lasix today based upon chest x-ray. 02/18: Evaluated at bedside. Patient resting in bed. Appears to be in normal sinus rhythm. No major clinical changes otherwise. 02/19: Evaluated at bedside. Patient resting in bed pursed lip breathing D/W XAVIER/ AMBULATORY CARE COORDINATOR, ABG pending d/w in room k 5.8 on tpn pharmacy to adjust k in tpn 02/20: Evaluated at bedside. D/W XAVIER/ AMBULATORY CARE COORDINATOR, ABG pending d/w in room k 5.8 on tpn pharmacy to adjust k in tpn 02/21: Transferred from ICU overnight. Still very confused. Family says she said hello. Moving all 4 extremities. Afebrile. NA 156. WBC 19.2, Hb 8.1. D/w family bedside. 02/22: NA 158. Afebrile. Asking for coffee. Still requiring 3L NCO2. D/w surgery given her deconditioning and need for IV nutrition she would need likely referral to LTACH. 02/23: NA 162. Afebrile. More alert. Asking for food. No BM. Very weak, d/w beside to consider LTACH. Chest radiograph with PICC crossing midline. Diet advanced 02/24: Afebrile overnight. Feeling a little worse. She is taking p.o. had some juice had a bowel movement. Chest radiograph revealed PICC has become malpositioned. IV on hold. Afebrile. NA 137. Feels a little hot. Has been upset about PICC and making sure she is getting her medications. Reassured she can appropriately medicated by mouth. She is asking for some cold to drink. Noted she still on thickened liquids 02/26 Patient evaluated at bedside. Still frustrated about PICC line, imaging shows it is in the left subclavian. From medical standpoint patient with hypernatremia of 162 today. Still mentating well. Nephrology following. Defer rest to primary surgical team 02/27 Patient evaluated at bedside, she does remain very weak still. 6 min walk ordered but question if she will be able to complete. Labs from today pending s till. 02/28 Patient evaluated and examined at bedside. Pretty lethargic this morning informed by bedside nurse she had a hemoglobin below 7 along with an elevated temperature to 100. Patient also was made n.p.o. today after speech evaluation concerned she is aspirating. Contacted surgical team who graciously evaluated the patient. Order chest x-ray patient does appear to have some fluid overload, discussed the case with Dr. Caro who recommended trying a dose of IV Lasix given her fluid overload on exam. Agreed with continuing antibiotics. We will continue to closely monitor. If she should worsen consider ICU transfer. 03/01 Patient evaluated and examined at bedside. She definitely does appear better but still relatively lethargic. Giving another dose of Lasix this morning as she is clinically fluid overloaded still. Remains n.p.o. per speech. Given leukocytosis and fevers will reconsult infectious disease. 03/02 Patient evaluated examined at bedside. She reports being a little bit better but is still has a pretty fragile respiratory status. Continue as needed diuresing along with antibiotics. Cardiology and infectious disease following. Continue to Dapto Zosyn blood cultures no growth today. Diuresis needed. Patient remains very very weak and family still adamant about bringing her home after discharge. Given her current status this really would not be safe. Vitals/I&O Vitals/I&O: Vital Signs Date Time Temp Pulse Resp B/P (MAP) Pulse Ox O2 Delivery O2 Flow Rate FiO2 03/02/21 11:45 99 Nasal Cannula 2.0 03/02/21 11:00 97.8 81 18 137/60 (85) 97.8 I & O 03/01/21 03/01/21 03/02/21 15:00 23:00 07:00 Intake Total 50 ml 100 ml 0 ml Output Total 1500 ml 945 ml 460 ml Balance -1450 ml -845 ml -460 ml Physical Exam Physical Exam: GENERAL: Sleepy but arousable HEENT: Normocephalic, atraumatic. Anicteric. Dry mouth NECK: Supple. No JVD. LUNGS: Decreased breath sound at bases no wheezing HEART: Irregularly irregular no murmurs appreciated ABDOMEN: Obese , mildly distended Hypoactive bowel sounds [address] EXTREMITIES mild edema present, no cyanosis MUSCULOSKELETAL: No joint swelling. No decrease in range of motion. CENTRAL NERVOUS SYSTEM: Sleepy, arousable PSYCHIATRIC: Cooperative, calm PICC line removed General: Alert, Cooperative, Other (more awake today) Heart: Regular rate, Normal S1, Normal S2 Lungs: Clear Abdomen: Soft, Other (incision intact, drains in place) Extremities: No edema, Normal pulses Skin: No significant lesion Labs Labs: Laboratory Tests Test 03/01/21 17:08 03/01/21 23:35 03/02/21 04:00 03/02/21 05:54 Glucose (Fingerstick) 161 mg/dL (70-99) 148 mg/dL (70-99) 104 mg/dL (70-99) Sodium Level 140 mmol/L (136-145) Potassium Level 3.6 mmol/L (3.5-5.1) Chloride Level 108 mmol/L (98-107) Carbon Dioxide Level 25 mmol/L (21-32) Anion Gap 7 (6-14) Blood Urea Nitrogen 24 mg/dL (7-20) Creatinine 0.6 mg/dL (0.6-1.0) Estimated GFR (Cockcroft-Gault) 96.9 Glucose Level 115 mg/dL (70-99) Calcium Level 6.7 mg/dL (8.5-10.1) Phosphorus Level 3.2 mg/dL (2.6-4.7) Magnesium Level 2.0 mg/dL (1.8-2.4) Test 03/02/21 11:27 Glucose (Fingerstick) 127 mg/dL (70-99) Comment Review of Relevant I have reviewed the following items keely (where applicable) has been applied. Medications: Current Medications Medications (Trade) Dose Ordered Sig/Isael Route PRN Reason Start Time Stop Time Status Last Admin Dose Admin Metoprolol Tartrate (Lopressor Vial) 5 mg Q6HRS IVP 03/01/21 13:00 03/02/21 05:49 Justifications for Admission Other Justification BENY HUGGINS MD Mar 02, 2021 12:53
[2021-03-02] MEDS: AA 4.25 %/CALCIUM/LYTES/D5W 1,000 ML IV SCH ×2 (13:02→23:10)
[2021-03-02 14:22] VITALS: BP 115/54
[2021-03-02] MEDS: DAPTOmycin (GENERIC) IVPB 330 MG in IV NORMAL SALINE 50ML 50 ML IV SCH (15:00)
[2021-03-02] MEDS: ENOXAPARIN 40 MG/0.4 ML SYRINGE. SQ SCH (18:31)
[2021-03-02 19:00] VITALS: BP 154/67
[2021-03-02] MEDS ORDERED: TOTAL PARENTERAL NUTRITION IV SCH (22:00)
[2021-03-02] MEDS ORDERED: AMINO ACID IV SCH (22:00)
[2021-03-02] MEDS ORDERED: [UNRECOGNIZED DRUG - OTHER] IV SCH (22:00)
[2021-03-02] MEDS ORDERED: DEXTROSE 70% IV SCH (22:00)
[2021-03-02 22:35] VITALS: BP 149/63
[2021-03-02] MEDS: FAMOTIDINE 20 MG/2 ML VIAL IVP SCH (23:06)
[2021-03-02] MEDS: INSULIN GLARGINE SYRINGE. SQ SCH (23:49)
[2021-03-03] VITALS (8 sets, daily range): BP systolic 138–175; BP diastolic 62–132
[2021-03-03] MEDS: ENALAPRILAT 1.25 MG/ML VIAL. IVP SCH ×5 (00:58→23:09)
[2021-03-03 05:00] LABS: BASO % 0 % (0-3); EOS # 0.1 x10^3/uL (0.0-0.7); EOS % 2 % (0-3); HEMATOCRIT 26.1 % (36.0-47.0); HEMOGLOBIN 8.8 g/dL (12.0-15.5); LYMPH # 0.4 x10^3/uL (1.0-4.8); LYMPH % 8 % (24-48); MEAN CORPUSCULAR HEMOGLOBIN 31 pg (25-35); MEAN CORPUSCULAR HGB CONC 34 g/dL (31-37); MEAN CORPUSCULAR VOLUME 93 fL (79-100); MONO # 0.7 x10^3/uL (0.0-1.1); MONO % 11 % (0-9); NEUT # 4.7 x10^3/uL (1.8-7.7); NEUT % 80 % (31-73); PLATELET COUNT 152 x10^3/uL (140-400); RED BLOOD COUNT 2.82 x10^6/uL (3.50-5.40); RED CELL DISTRIBUTION WIDTH 16.6 % (11.5-14.5); WHITE BLOOD COUNT 5.9 x10^3/uL (4.0-11.0)
[2021-03-03 05:25] LABS: CALCIUM 6.6 mg/dL (8.5-10.1); CREATININE 0.6 mg/dL (0.6-1.0); GFR 96.9; MAGNESIUM 2.1 mg/dL (1.8-2.4); PHOSPHORUS 2.5 mg/dL (2.6-4.7); POTASSIUM 3.7 mmol/L (3.5-5.1)
[2021-03-03] MEDS: IPRATROPIUM BROMIDE 0.5 MG/2.5 ML NEBU. NEB SCH ×4 (06:06→20:46)
[2021-03-03] MEDS: BUDESONIDE 0.5 MG/2 ML NEBU. NEB SCH ×2 (06:06→20:46)
[2021-03-03] MEDS: NITROGLYCERIN OINT 1 GM PACKET. TP SCH ×4 (07:29→23:04)
[2021-03-03] MEDS: PIPERACILLIN/TAZOBACTAM 3.375 GM in IV NORMAL SALINE 50ML 50 ML IV SCH ×3 (07:29→17:41)
[2021-03-03] MEDS: INSULIN LISPRO 300 UNITS/3 ML VIAL. SQ SCH ×4 (07:30→21:00)
[2021-03-03] MEDS: METOPROLOL IV PUSH 5 MG/5 ML VIAL. IVP SCH ×4 (07:33→23:12)
[2021-03-03] MEDS: LACTOBACILLUS RHAMNOSUS GG 1 CAPSULE. PO SCH ×2 (07:58→21:00)
--- NOTE | 2021-03-03 08:05 | PDOC ---
Infectious Disease Note Subjective: Subjective Patient states feels better Less shortness of breath and cough Abdominal pain is under control Denies any fevers or chills Vital Signs: Vital Signs Vital Signs Date Time Temp Pulse Resp B/P (MAP) Pulse Ox O2 Delivery O2 Flow Rate FiO2 03/03/21 07:34 77 157/68 03/03/21 06:22 98.2 18 99 Nasal Cannula 2.0 98.2 Physical Exam: PHYSICAL EXAM GENERAL: Sleepy but arousable HEENT: Normocephalic, atraumatic. Anicteric. Dry mouth NECK: Supple. No JVD. LUNGS: Decreased breath sound at bases no wheezing HEART: Irregularly irregular no murmurs appreciated ABDOMEN: Obese , mildly distended Hypoactive bowel sounds [address] EXTREMITIES mild edema present, no cyanosis MUSCULOSKELETAL: No joint swelling. No decrease in range of motion. CENTRAL NERVOUS SYSTEM: Sleepy, arousable PSYCHIATRIC: Cooperative, calm PICC line removed Medications: Inpatient Meds: Medications reviewed. Labs: Lab Laboratory Tests Test 03/02/21 11:27 03/02/21 17:15 03/02/21 23:43 03/03/21 04:30 Glucose (Fingerstick) 127 mg/dL (70-99) 149 mg/dL (70-99) 116 mg/dL (70-99) White Blood Count 5.9 x10^3/uL (4.0-11.0) Red Blood Count 2.82 x10^6/uL (3.50-5.40) Hemoglobin 8.8 g/dL (12.0-15.5) Hematocrit 26.1 % (36.0-47.0) Mean Corpuscular Volume 93 fL (79-100) Mean Corpuscular Hemoglobin 31 pg (25-35) Mean Corpuscular Hemoglobin Concent 34 g/dL (31-37) Red Cell Distribution Width 16.6 % (11.5-14.5) Platelet Count 152 x10^3/uL (140-400) Neutrophils (%) (Auto) 80 % (31-73) Lymphocytes (%) (Auto) 8 % (24-48) Monocytes (%) (Auto) 11 % (0-9) Eosinophils (%) (Auto) 2 % (0-3) Basophils (%) (Auto) 0 % (0-3) Neutrophils # (Auto) 4.7 x10^3/uL (1.8-7.7) Lymphocytes # (Auto) 0.4 x10^3/uL (1.0-4.8) Monocytes # (Auto) 0.7 x10^3/uL (0.0-1.1) Eosinophils # (Auto) 0.1 x10^3/uL (0.0-0.7) Basophils # (Auto) 0.0 x10^3/uL (0.0-0.2) Sodium Level 142 mmol/L (136-145) Potassium Level 3.7 mmol/L (3.5-5.1) Chloride Level 110 mmol/L (98-107) Carbon Dioxide Level 25 mmol/L (21-32) Anion Gap 7 (6-14) Blood Urea Nitrogen 21 mg/dL (7-20) Creatinine 0.6 mg/dL (0.6-1.0) Estimated GFR (Cockcroft-Gault) 96.9 Glucose Level 94 mg/dL (70-99) Calcium Level 6.6 mg/dL (8.5-10.1) Phosphorus Level 2.5 mg/dL (2.6-4.7) Magnesium Level 2.1 mg/dL (1.8-2.4) Creatine Kinase 75 U/L (26-192) Triglycerides Level 285 mg/dL (0-150) Test 03/03/21 05:59 Glucose (Fingerstick) 91 mg/dL (70-99) Objective: Assessment: Patient with prolonged hospitalization Fever Status post large ventral hernia repair on February 12, 2021, drains in place Possible aspiration pneumonia Encephalopathy appears metabolic improved Leukocytosis was on steroids Anemia that is post blood transfusion A. fib with RVR CHF Renal insufficiency Rheumatoid arthritis Depression History of breast cancer Hypertension Dysphagia Plan: Plan of Care Continue Zosyn and daptomycin PICC line has been discontinued Maintain PIV Follow-up repeat blood cultures Sputum cultures pending Maintain aspiration precaution PT and OT as tolerated MELINDA MONTEMAYOR MD Mar 03, 2021 08:05
[2021-03-03] MEDS: ONDANSETRON PF 4 MG/2 ML VIAL. IVP PRN (09:26)
[2021-03-03] MEDS: NYSTATIN 100,000 UNITS/ML 5 ML ORAL.SUSP. SWSW SCH ×4 (09:26→22:49)
[2021-03-03] MEDS: methylPREDNISolone SOD SUCC PF 40 MG/ML VIAL. IV SCH (09:27)
--- NOTE | 2021-03-03 11:25 | PDOC ---
PROGRESS NOTES Date of Service: DATE: 03/03/21 TIME: 11:23 Subjective Subjective Feeling better. Dyspnea improved. Objective Objective Vital Signs Date Time Temp Pulse Resp B/P (MAP) Pulse Ox O2 Delivery O2 Flow Rate FiO2 03/03/21 11:05 96 Nasal Cannula 2.0 03/03/21 11:00 98.2 85 18 154/69 (97) 98.2 Intake and Output 03/03/21 07:00 Intake Total 0 ml Output Total 540 ml Balance -540 ml Intake Oral 0 ml Output Urine Total 500 ml Drainage Total 40 ml Physical Exam Abdomen: Soft, Other (incision intact, drains in place) Heart: Regular rate, Normal S1, Normal S2 Extremities: No edema, Normal pulses General: Alert, Cooperative, Other (more awake today) HEENT: Atraumatic Lungs: Other (Mildly decreased breath sounds) Neuro: Normal speech Psych/Mental Status: Mental status NL Skin: No significant lesion Assessment Assessment 1. S/p ventricular hernia repair 02/13. Continue postop care per GS team. 2. Post-op AFIB/flutter with RVR; maintaining SR. She is presently a poor AC candidate. 3. Acute respiratory failure with AECOPD, CHF improved 4. Acute on chronic diastolic CHF; echo with preserved LV systolic function, better compensated 5. Hypertensive urgency: better controlled 6. Anemia; S/P transfusion 7. H/o breast CA s/p radiation 8. Hyperkalemia; resolved 9. Encephalopathy: resolved 10. Hypernatremia: resolved nephrology following Comment Review of Relevant I have reviewed the following items keely (where applicable) has been applied. Labs Laboratory Tests Test 03/02/21 11:27 03/02/21 17:15 03/02/21 23:43 03/03/21 04:30 Glucose (Fingerstick) 127 mg/dL (70-99) 149 mg/dL (70-99) 116 mg/dL (70-99) White Blood Count 5.9 x10^3/uL (4.0-11.0) Red Blood Count 2.82 x10^6/uL (3.50-5.40) Hemoglobin 8.8 g/dL (12.0-15.5) Hematocrit 26.1 % (36.0-47.0) Mean Corpuscular Volume 93 fL (79-100) Mean Corpuscular Hemoglobin 31 pg (25-35) Mean Corpuscular Hemoglobin Concent 34 g/dL (31-37) Red Cell Distribution Width 16.6 % (11.5-14.5) Platelet Count 152 x10^3/uL (140-400) Neutrophils (%) (Auto) 80 % (31-73) Lymphocytes (%) (Auto) 8 % (24-48) Monocytes (%) (Auto) 11 % (0-9) Eosinophils (%) (Auto) 2 % (0-3) Basophils (%) (Auto) 0 % (0-3) Neutrophils # (Auto) 4.7 x10^3/uL (1.8-7.7) Lymphocytes # (Auto) 0.4 x10^3/uL (1.0-4.8) Monocytes # (Auto) 0.7 x10^3/uL (0.0-1.1) Eosinophils # (Auto) 0.1 x10^3/uL (0.0-0.7) Basophils # (Auto) 0.0 x10^3/uL (0.0-0.2) Sodium Level 142 mmol/L (136-145) Potassium Level 3.7 mmol/L (3.5-5.1) Chloride Level 110 mmol/L (98-107) Carbon Dioxide Level 25 mmol/L (21-32) Anion Gap 7 (6-14) Blood Urea Nitrogen 21 mg/dL (7-20) Creatinine 0.6 mg/dL (0.6-1.0) Estimated GFR (Cockcroft-Gault) 96.9 Glucose Level 94 mg/dL (70-99) Calcium Level 6.6 mg/dL (8.5-10.1) Phosphorus Level 2.5 mg/dL (2.6-4.7) Magnesium Level 2.1 mg/dL (1.8-2.4) Creatine Kinase 75 U/L (26-192) Triglycerides Level 285 mg/dL (0-150) Test 03/03/21 05:59 Glucose (Fingerstick) 91 mg/dL (70-99) Microbiology 03/01/21 Blood Culture - Preliminary, Resulted NO GROWTH AFTER 2 DAYS Medications Current Medications Enalaprilat (Vasotec Inj) 1.25 mg Q6HRS IVP Last administered on 03/03/21at 07:34; Start 10/8/21 at 12:00 Famotidine (Pepcid Vial) 20 mg QHS IVP Last administered on 03/02/21at 23:06; Start 03/02/21 at 21:00 Sodium Chloride 90 meq/Potassium Chloride 50 meq/ Potassium Phosphate 13.6 mmol/Magnesium Sulfate 6 meq/ Calcium Gluconate 14 meq/ Multivitamins 10 ml/Zinc/Copper/ Manganese/ Selenium 1 ml/ Total Parenteral Nutrition/Amino Acids/Dextrose/ Fat Emulsion Intravenous 1,512 ml @ 63 mls/hr TPN CONT IV ; Start 03/02/21 at 22:00; Stop 03/03/21 at 21:59; Status Cancel Vitals/I & O Vital Sign - Last 24 Hours 03/02/21 03/02/21 03/02/21 03/02/21 11:45 13:05 14:22 15:42 Temp 98.5 98.5 Pulse 80 67 Resp 18 B/P (MAP) 133/58 115/54 (74) Pulse Ox 99 100 100 O2 Delivery Nasal Cannula Nasal Cannula Nasal Cannula O2 Flow Rate 2.0 2.0 2.0 03/02/21 03/02/21 03/02/21 03/02/21 18:33 19:00 19:40 20:00 Temp 98.0 98.0 Pulse 76 69 Resp 19 B/P (MAP) 154/67 154/67 (96) Pulse Ox 100 100 O2 Delivery Nasal Cannula Nasal Cannula Nasal Cannula O2 Flow Rate 2.0 2.0 2.0 03/02/21 03/02/21 03/02/21 03/03/21 22:35 23:07 23:24 00:58 Temp 98.2 98.2 Pulse 80 80 80 68 Resp 19 B/P (MAP) 149/63 (91) 149/63 149/63 140/60 Pulse Ox 99 O2 Delivery Nasal Cannula O2 Flow Rate 2.0 03/03/21 03/03/21 03/03/21 03/03/21 02:46 06:06 06:06 06:22 Temp 98.0 98.2 98.0 98.2 Pulse 70 77 Resp 19 18 B/P (MAP) 138/62 (87) 157/68 (97) Pulse Ox 100 100 100 99 O2 Delivery Nasal Cannula Nasal Cannula Nasal Cannula Nasal Cannula O2 Flow Rate 2.0 2.0 2.0 2.0 03/03/21 03/03/21 03/03/21 03/03/21 07:29 07:33 07:34 08:00 Pulse 77 77 77 B/P (MAP) 157/68 157/68 157/68 O2 Delivery Nasal Cannula O2 Flow Rate 2.0 03/03/21 03/03/21 11:00 11:05 Temp 98.2 98.2 Pulse 85 Resp 18 B/P (MAP) 154/69 (97) Pulse Ox 100 96 O2 Delivery Nasal Cannula Nasal Cannula O2 Flow Rate 2.0 2.0 Intake and Output 03/02/21 03/02/21 03/03/21 15:00 23:00 07:00 Intake Total 0 ml 0 ml Output Total 20 ml 520 ml Balance 0 ml -20 ml -520 ml ALICE LOVE MD Mar 03, 2021 11:25
--- NOTE | 2021-03-03 11:41 | PDOC ---
[facility] PROGRESS NOTE Date of Service DOS: DATE: 03/03/21 TIME: 11:39 Chief Complaint Chief Complaint A/P: Abdominal pain S/p ventricular hernia repair 02/13 Post-op AFIB/flutter with RVR - SR with PACs. on lovenox ppx dosing and IV metoprolol Acute respiratory failure - likely secondary to acute COPD and acute diastolic CHF worsened by Afib as above Acute diastolic CHF - cardiology following, Echo with no reduction in EF Hypertensive urgency - seems to be due to pain Anemia - hgb drift to 8.2 H/o breast CA s/p radiation Hyperkalemia - resolved Encephalopathy - remains lethargic Chronic obstructive pulmonary disease, unknown FEV1 Hypernatremia -nephrology following Possible aspiration pneumonia versus fluid overload-start Dapto Zosyn for broad- spectrum coverage. Line may need to be removed if blood cultures positive. ID reconsulted. Continue as needed IV Lasix History of Present Illness History of Present Illness Ms Dyson is a 75yo female w/ PMHx rheumatoid arthritis, depression, hypertension, breast cancer and prior colectomy who was admitted for a large ventral hernia repair which she underwent on February 13. Had done really well after surgery initially she was actually planning to start trialing liquids, but was transferred to ICU for concern for sepsis and new onset A. fib with RVR requiring a Cardizem drip, cardiology, Infectious Disease and pulmonary were consulted. Patient started on broad-spectrum antibiotics. Pulmonary following. 02/16: ICU today. Her condition has significantly improved since last night. She is awake alert and oriented able to answer questions says pain is under control. Blood pressure holding steady. Remains on Cardizem drip. Continue antibiotics today. Requesting to drink if she can, will defer this decision to surgery. 02/17: She is complaining about some shortness of breath but is feeling comfortable. We will try 1 dose of Lasix today based upon chest x-ray. 02/18: Evaluated at bedside. Patient resting in bed. Appears to be in normal sinus rhythm. No major clinical changes otherwise. 02/19: Evaluated at bedside. Patient resting in bed pursed lip breathing D/W XAVIER/ CONTACT LENS TECHNICIAN, ABG pending d/w in room k 5.8 on tpn pharmacy to adjust k in tpn 02/20: Evaluated at bedside. D/W XAVIER/ CONTACT LENS TECHNICIAN, ABG pending d/w in room k 5.8 on tpn pharmacy to adjust k in tpn 02/21: Transferred from ICU overnight. Still very confused. Family says she said hello. Moving all 4 extremities. Afebrile. NA 156. WBC 19.2, Hb 8.1. D/w family bedside. 02/22: NA 158. Afebrile. Asking for coffee. Still requiring 3L NCO2. D/w surgery given her deconditioning and need for IV nutrition she would need likely referral to LTACH. 02/23: NA 162. Afebrile. More alert. Asking for food. No BM. Very weak, d/w beside to consider LTACH. Chest radiograph with PICC crossing midline. Diet advanced 02/24: Afebrile overnight. Feeling a little worse. She is taking p.o. had some juice had a bowel movement. Chest radiograph revealed PICC has become malpositioned. IV on hold. Afebrile. NA 137. Feels a little hot. Has been upset about PICC and making sure she is getting her medications. Reassured she can appropriately medicated by mouth. She is asking for some cold to drink. Noted she still on thickened liquids 02/26 Patient evaluated at bedside. Still frustrated about PICC line, imaging shows it is in the left subclavian. From medical standpoint patient with hypernatremia of 162 today. Still mentating well. Nephrology following. Defer rest to primary surgical team 02/27 Patient evaluated at bedside, she does remain very weak still. 6 min walk ordered but question if she will be able to complete. Labs from today pending s till. 02/28 Patient evaluated and examined at bedside. Pretty lethargic this morning informed by bedside nurse she had a hemoglobin below 7 along with an elevated temperature to 100. Patient also was made n.p.o. today after speech evaluation concerned she is aspirating. Contacted surgical team who graciously evaluated the patient. Order chest x-ray patient does appear to have some fluid overload, discussed the case with Dr. Caro who recommended trying a dose of IV Lasix given her fluid overload on exam. Agreed with continuing antibiotics. We will continue to closely monitor. If she should worsen consider ICU transfer. 03/01 Patient evaluated and examined at bedside. She definitely does appear better but still relatively lethargic. Giving another dose of Lasix this morning as she is clinically fluid overloaded still. Remains n.p.o. per speech. Given leukocytosis and fevers will reconsult infectious disease. 03/02 Patient evaluated examined at bedside. She reports being a little bit better but is still has a pretty fragile respiratory status. Continue as needed diuresing along with antibiotics. Cardiology and infectious disease following. Continue to Dapto Zosyn blood cultures no growth today. Diuresis needed. Patient remains very very weak and family still adamant about bringing her home after discharge. Given her current status this really would not be safe. 03/03 Patient evaluated and examined at bedside. Family finally agreeable to SNF placement. Patient improving with Dapto and Zosyn continue this. Remains n.p.o. continue with TPN. Speech eval's per speech therapy PT OT likely discharge early next week Vitals/I&O Vitals/I&O: Vital Signs Date Time Temp Pulse Resp B/P (MAP) Pulse Ox O2 Delivery O2 Flow Rate FiO2 03/03/21 11:05 96 Nasal Cannula 2.0 03/03/21 11:00 98.2 85 18 154/69 (97) 98.2 I & O 03/02/21 03/02/21 03/03/21 14:59 22:59 06:59 Intake Total 0 ml 0 ml Output Total 20 ml 520 ml Balance 0 ml -20 ml -520 ml Physical Exam Physical Exam: GENERAL: Sleepy but arousable HEENT: Normocephalic, atraumatic. Anicteric. Dry mouth NECK: Supple. No JVD. LUNGS: Decreased breath sound at bases no wheezing HEART: Irregularly irregular no murmurs appreciated ABDOMEN: Obese , mildly distended Hypoactive bowel sounds [address] EXTREMITIES mild edema present, no cyanosis MUSCULOSKELETAL: No joint swelling. No decrease in range of motion. CENTRAL NERVOUS SYSTEM: Sleepy, arousable PSYCHIATRIC: Cooperative, calm PICC line removed General: Alert, Cooperative, Other (more awake today) Heart: Regular rate, Normal S1, Normal S2 Lungs: Clear Abdomen: Soft, Other (incision intact, drains in place) Extremities: No edema, Normal pulses Skin: No significant lesion Labs Labs: Laboratory Tests Test 03/02/21 17:15 03/02/21 23:43 03/03/21 04:30 03/03/21 05:59 Glucose (Fingerstick) 149 mg/dL (70-99) 116 mg/dL (70-99) 91 mg/dL (70-99) White Blood Count 5.9 x10^3/uL (4.0-11.0) Red Blood Count 2.82 x10^6/uL (3.50-5.40) Hemoglobin 8.8 g/dL (12.0-15.5) Hematocrit 26.1 % (36.0-47.0) Mean Corpuscular Volume 93 fL (79-100) Mean Corpuscular Hemoglobin 31 pg (25-35) Mean Corpuscular Hemoglobin Concent 34 g/dL (31-37) Red Cell Distribution Width 16.6 % (11.5-14.5) Platelet Count 152 x10^3/uL (140-400) Neutrophils (%) (Auto) 80 % (31-73) Lymphocytes (%) (Auto) 8 % (24-48) Monocytes (%) (Auto) 11 % (0-9) Eosinophils (%) (Auto) 2 % (0-3) Basophils (%) (Auto) 0 % (0-3) Neutrophils # (Auto) 4.7 x10^3/uL (1.8-7.7) Lymphocytes # (Auto) 0.4 x10^3/uL (1.0-4.8) Monocytes # (Auto) 0.7 x10^3/uL (0.0-1.1) Eosinophils # (Auto) 0.1 x10^3/uL (0.0-0.7) Basophils # (Auto) 0.0 x10^3/uL (0.0-0.2) Sodium Level 142 mmol/L (136-145) Potassium Level 3.7 mmol/L (3.5-5.1) Chloride Level 110 mmol/L (98-107) Carbon Dioxide Level 25 mmol/L (21-32) Anion Gap 7 (6-14) Blood Urea Nitrogen 21 mg/dL (7-20) Creatinine 0.6 mg/dL (0.6-1.0) Estimated GFR (Cockcroft-Gault) 96.9 Glucose Level 94 mg/dL (70-99) Calcium Level 6.6 mg/dL (8.5-10.1) Phosphorus Level 2.5 mg/dL (2.6-4.7) Magnesium Level 2.1 mg/dL (1.8-2.4) Creatine Kinase 75 U/L (26-192) Triglycerides Level 285 mg/dL (0-150) Comment Review of Relevant I have reviewed the following items keely (where applicable) has been applied. Medications: Current Medications Medications (Trade) Dose Ordered Sig/Isael Route PRN Reason Start Time Stop Time Status Last Admin Dose Admin Enalaprilat (Vasotec Inj) 1.25 mg Q6HRS IVP 03/02/21 12:00 03/03/21 07:34 Famotidine (Pepcid Vial) 20 mg QHS IVP 03/02/21 21:00 03/02/21 23:06 Justifications for Admission Other Justification BENY HUGGINS MD Mar 03, 2021 11:41
[2021-03-03] MEDS: DAPTOmycin (GENERIC) IVPB 330 MG in IV NORMAL SALINE 50ML 50 ML IV SCH (11:46)
--- NOTE | 2021-03-03 12:06 | PDOC ---
SURGICAL PROGRESS NOTE DATE: 03/03/21 TIME: 12:05 Subjective Pt getting breathing treatment, denies abd pain Vital Signs Vital Signs Date Time Temp Pulse Resp B/P (MAP) Pulse Ox O2 Delivery O2 Flow Rate FiO2 03/03/21 11:05 96 Nasal Cannula 2.0 03/03/21 11:00 98.2 85 18 154/69 (97) 98.2 I&O Intake and Output 03/03/21 07:00 Intake Total 0 ml Output Total 540 ml Balance -540 ml Intake Oral 0 ml Output Urine Total 500 ml Drainage Total 40 ml General: Alert, No acute distress Abdomen: Soft, No tenderness, Other (incision healing nicely) Labs Laboratory Tests Test 03/01/21 12:06 03/01/21 17:08 03/01/21 23:35 03/02/21 04:00 Glucose (Fingerstick) 112 mg/dL (70-99) 161 mg/dL (70-99) 148 mg/dL (70-99) Sodium Level 140 mmol/L (136-145) Potassium Level 3.6 mmol/L (3.5-5.1) Chloride Level 108 mmol/L (98-107) Carbon Dioxide Level 25 mmol/L (21-32) Anion Gap 7 (6-14) Blood Urea Nitrogen 24 mg/dL (7-20) Creatinine 0.6 mg/dL (0.6-1.0) Estimated GFR (Cockcroft-Gault) 96.9 Glucose Level 115 mg/dL (70-99) Calcium Level 6.7 mg/dL (8.5-10.1) Phosphorus Level 3.2 mg/dL (2.6-4.7) Magnesium Level 2.0 mg/dL (1.8-2.4) Test 03/02/21 05:54 03/02/21 11:27 03/02/21 17:15 03/02/21 23:43 Glucose (Fingerstick) 104 mg/dL (70-99) 127 mg/dL (70-99) 149 mg/dL (70-99) 116 mg/dL (70-99) Test 03/03/21 04:30 03/03/21 05:59 03/03/21 11:59 White Blood Count 5.9 x10^3/uL (4.0-11.0) Red Blood Count 2.82 x10^6/uL (3.50-5.40) Hemoglobin 8.8 g/dL (12.0-15.5) Hematocrit 26.1 % (36.0-47.0) Mean Corpuscular Volume 93 fL (79-100) Mean Corpuscular Hemoglobin 31 pg (25-35) Mean Corpuscular Hemoglobin Concent 34 g/dL (31-37) Red Cell Distribution Width 16.6 % (11.5-14.5) Platelet Count 152 x10^3/uL (140-400) Neutrophils (%) (Auto) 80 % (31-73) Lymphocytes (%) (Auto) 8 % (24-48) Monocytes (%) (Auto) 11 % (0-9) Eosinophils (%) (Auto) 2 % (0-3) Basophils (%) (Auto) 0 % (0-3) Neutrophils # (Auto) 4.7 x10^3/uL (1.8-7.7) Lymphocytes # (Auto) 0.4 x10^3/uL (1.0-4.8) Monocytes # (Auto) 0.7 x10^3/uL (0.0-1.1) Eosinophils # (Auto) 0.1 x10^3/uL (0.0-0.7) Basophils # (Auto) 0.0 x10^3/uL (0.0-0.2) Sodium Level 142 mmol/L (136-145) Potassium Level 3.7 mmol/L (3.5-5.1) Chloride Level 110 mmol/L (98-107) Carbon Dioxide Level 25 mmol/L (21-32) Anion Gap 7 (6-14) Blood Urea Nitrogen 21 mg/dL (7-20) Creatinine 0.6 mg/dL (0.6-1.0) Estimated GFR (Cockcroft-Gault) 96.9 Glucose Level 94 mg/dL (70-99) Calcium Level 6.6 mg/dL (8.5-10.1) Phosphorus Level 2.5 mg/dL (2.6-4.7) Magnesium Level 2.1 mg/dL (1.8-2.4) Creatine Kinase 75 U/L (26-192) Triglycerides Level 285 mg/dL (0-150) Glucose (Fingerstick) 91 mg/dL (70-99) 113 mg/dL (70-99) Laboratory Tests Test 03/02/21 17:15 03/02/21 23:43 03/03/21 04:30 03/03/21 05:59 Glucose (Fingerstick) 149 mg/dL (70-99) 116 mg/dL (70-99) 91 mg/dL (70-99) White Blood Count 5.9 x10^3/uL (4.0-11.0) Red Blood Count 2.82 x10^6/uL (3.50-5.40) Hemoglobin 8.8 g/dL (12.0-15.5) Hematocrit 26.1 % (36.0-47.0) Mean Corpuscular Volume 93 fL (79-100) Mean Corpuscular Hemoglobin 31 pg (25-35) Mean Corpuscular Hemoglobin Concent 34 g/dL (31-37) Red Cell Distribution Width 16.6 % (11.5-14.5) Platelet Count 152 x10^3/uL (140-400) Neutrophils (%) (Auto) 80 % (31-73) Lymphocytes (%) (Auto) 8 % (24-48) Monocytes (%) (Auto) 11 % (0-9) Eosinophils (%) (Auto) 2 % (0-3) Basophils (%) (Auto) 0 % (0-3) Neutrophils # (Auto) 4.7 x10^3/uL (1.8-7.7) Lymphocytes # (Auto) 0.4 x10^3/uL (1.0-4.8) Monocytes # (Auto) 0.7 x10^3/uL (0.0-1.1) Eosinophils # (Auto) 0.1 x10^3/uL (0.0-0.7) Basophils # (Auto) 0.0 x10^3/uL (0.0-0.2) Sodium Level 142 mmol/L (136-145) Potassium Level 3.7 mmol/L (3.5-5.1) Chloride Level 110 mmol/L (98-107) Carbon Dioxide Level 25 mmol/L (21-32) Anion Gap 7 (6-14) Blood Urea Nitrogen 21 mg/dL (7-20) Creatinine 0.6 mg/dL (0.6-1.0) Estimated GFR (Cockcroft-Gault) 96.9 Glucose Level 94 mg/dL (70-99) Calcium Level 6.6 mg/dL (8.5-10.1) Phosphorus Level 2.5 mg/dL (2.6-4.7) Magnesium Level 2.1 mg/dL (1.8-2.4) Creatine Kinase 75 U/L (26-192) Triglycerides Level 285 mg/dL (0-150) Test 03/03/21 11:59 Glucose (Fingerstick) 113 mg/dL (70-99) Assessment/Plan s/p VIH repair cont supportive care appreciate consultants d/c planning. Justicifation of Admission Dx: Justifications for Admission: Justification of Admission Dx: Yes ILIA FERNÁNDEZ MD Mar 03, 2021 12:06
[2021-03-03] MEDS: ENOXAPARIN 40 MG/0.4 ML SYRINGE. SQ SCH (17:38)
[2021-03-03] MEDS: INSULIN GLARGINE SYRINGE. SQ SCH (21:00)
[2021-03-03] MEDS: FAMOTIDINE 20 MG/2 ML VIAL IVP SCH (22:50)
[2021-03-03] MEDS: AA 4.25 %/CALCIUM/LYTES/D5W 1,000 ML IV SCH (22:52)
[2021-03-04] MEDS: PIPERACILLIN/TAZOBACTAM 3.375 GM in IV NORMAL SALINE 50ML 50 ML IV SCH ×5 (01:00→23:07)
[2021-03-04 02:59] VITALS: BP 163/72
[2021-03-04] MEDS: NITROGLYCERIN OINT 1 GM PACKET. TP SCH ×4 (06:00→23:12)
[2021-03-04] MEDS: METOPROLOL IV PUSH 5 MG/5 ML VIAL. IVP SCH ×4 (06:11→23:10)
[2021-03-04] MEDS: ENALAPRILAT 1.25 MG/ML VIAL. IVP SCH ×4 (06:16→23:11)
[2021-03-04 07:00] VITALS: BP 174/77
[2021-03-04] MEDS: INSULIN LISPRO 300 UNITS/3 ML VIAL. SQ SCH ×4 (07:30→21:00)
[2021-03-04] MEDS: BUDESONIDE 0.5 MG/2 ML NEBU. NEB SCH ×2 (07:47→19:54)
[2021-03-04] MEDS: IPRATROPIUM BROMIDE 0.5 MG/2.5 ML NEBU. NEB SCH ×4 (07:47→19:54)
[2021-03-04] MEDS: LACTOBACILLUS RHAMNOSUS GG 1 CAPSULE. PO SCH ×2 (09:00→21:00)
--- NOTE | 2021-03-04 09:05 | PDOC ---
Infectious Disease Note Subjective: Subjective Patient states feels better Denies any fevers or chills Vital Signs: Vital Signs Vital Signs Date Time Temp Pulse Resp B/P (MAP) Pulse Ox O2 Delivery O2 Flow Rate FiO2 03/04/21 07:47 96 Nasal Cannula 2.0 03/04/21 07:00 98.6 86 18 174/77 (109) 98.6 Physical Exam: PHYSICAL EXAM GENERAL: Sleepy but arousable HEENT: Normocephalic, atraumatic. Anicteric. Dry mouth NECK: Supple. No JVD. LUNGS: Decreased breath sound at bases no wheezing HEART: Irregularly irregular no murmurs appreciated ABDOMEN: Obese , mildly distended Hypoactive bowel sounds [address] EXTREMITIES mild edema present, no cyanosis MUSCULOSKELETAL: No joint swelling. No decrease in range of motion. CENTRAL NERVOUS SYSTEM: Sleepy, arousable PSYCHIATRIC: Cooperative, calm PICC line removed Medications: Inpatient Meds: Medications reviewed. Labs: Lab Laboratory Tests Test 03/03/21 11:59 03/03/21 18:23 03/03/21 23:00 03/04/21 06:06 Glucose (Fingerstick) 113 mg/dL (70-99) 131 mg/dL (70-99) 106 mg/dL (70-99) 94 mg/dL (70-99) Objective: Assessment: Patient with prolonged hospitalization Fever Status post large ventral hernia repair on February 12, 2021, drains in place Possible aspiration pneumonia Encephalopathy appears metabolic improved Leukocytosis was on steroids Anemia that is post blood transfusion A. fib with RVR CHF Renal insufficiency Rheumatoid arthritis Depression History of breast cancer Hypertension Dysphagia Plan: Plan of Care Continue Zosyn DC Daptomycin PICC line has been discontinued Maintain PIV Follow-up repeat blood cultures Sputum cultures pending Maintain aspiration precaution PT and OT as tolerated MELINDA MONTEMAYOR MD Mar 04, 2021 09:05
[2021-03-04] MEDS: NYSTATIN 100,000 UNITS/ML 5 ML ORAL.SUSP. SWSW SCH ×4 (09:06→22:37)
[2021-03-04] MEDS: methylPREDNISolone SOD SUCC PF 40 MG/ML VIAL. IV SCH (09:06)
[2021-03-04 11:00] VITALS: BP 171/74
--- NOTE | 2021-03-04 11:47 | PDOC ---
PROGRESS NOTES Date of Service: DATE: 03/04/21 TIME: 11:47 Subjective Subjective Somnolent, comfortable Objective Objective Vital Signs Date Time Temp Pulse Resp B/P (MAP) Pulse Ox O2 Delivery O2 Flow Rate FiO2 03/04/21 11:09 96 Nasal Cannula 2.0 03/04/21 07:00 98.6 86 18 174/77 (109) 98.6 Intake and Output 03/04/21 07:00 Intake Total 1100 ml Output Total 1975 ml Balance -875 ml IV Total 1100 ml Output Urine Total 1950 ml Drainage Total 25 ml Physical Exam Abdomen: Soft, No tenderness, Other (incision healing nicely) Heart: Regular rate, Normal S1, Normal S2 Extremities: No edema, Normal pulses General: Alert, No acute distress HEENT: Atraumatic Lungs: Other (Mildly decreased breath sounds) Neuro: Normal speech Psych/Mental Status: Mental status NL Skin: No significant lesion Assessment Assessment 1. S/p ventricular hernia repair 02/13. Continue postop care per GS team. 2. Post-op AFIB/flutter with RVR; maintaining SR. She is presently a poor AC candidate. 3. Acute respiratory failure with AECOPD, CHF improved 4. Acute on chronic diastolic CHF; echo with preserved LV systolic function, better compensated 5. Hypertensive urgency: better controlled 6. Anemia; S/P transfusion 7. H/o breast CA s/p radiation 8. Hyperkalemia; resolved 9. Encephalopathy: resolved 10. Hypernatremia: resolved nephrology following Comment Review of Relevant I have reviewed the following items keely (where applicable) has been applied. Labs Laboratory Tests Test 03/03/21 11:59 03/03/21 18:23 03/03/21 23:00 03/04/21 06:06 Glucose (Fingerstick) 113 mg/dL (70-99) 131 mg/dL (70-99) 106 mg/dL (70-99) 94 mg/dL (70-99) Microbiology 03/01/21 Blood Culture - Preliminary, Resulted NO GROWTH AFTER 3 DAYS Vitals/I & O Vital Sign - Last 24 Hours 03/03/21 03/03/21 03/03/21 03/03/21 11:48 14:42 15:15 17:38 Temp 97.5 97.5 Pulse 90 79 Resp 18 B/P (MAP) 143/63 170/73 (105) 166/71 (102) Pulse Ox 100 98 O2 Delivery Nasal Cannula Nasal Cannula O2 Flow Rate 2.0 2.0 03/03/21 03/03/21 03/03/21 03/03/21 17:40 17:41 17:41 19:45 Temp 98.5 98.5 Pulse 84 84 84 95 Resp 18 B/P (MAP) 166/71 166/71 166/71 153/66 (95) Pulse Ox 97 O2 Delivery Nasal Cannula O2 Flow Rate 2.0 03/03/21 03/03/21 03/03/21 03/03/21 20:00 20:47 23:04 23:08 Temp 97.2 97.2 Pulse 95 81 Resp 16 B/P (MAP) 153/66 175/132 (146) Pulse Ox 97 98 O2 Delivery Nasal Cannula Nasal Cannula Nasal Cannula O2 Flow Rate 2.0 2.0 2.0 03/03/21 03/03/21 03/03/21 03/04/21 23:09 23:12 23:28 02:59 Temp 97.6 97.6 Pulse 78 81 78 Resp 18 B/P (MAP) 175/132 175/132 143/65 (91) 163/72 (102) Pulse Ox 99 O2 Delivery Nasal Cannula O2 Flow Rate 2.0 03/04/21 03/04/21 03/04/21 03/04/21 06:00 06:11 06:16 07:00 Temp 98.6 98.6 Pulse 60 68 58 86 Resp 18 B/P (MAP) 163/72 163/72 163/72 174/77 (109) Pulse Ox 98 O2 Delivery Nasal Cannula O2 Flow Rate 2.0 03/04/21 03/04/21 03/04/21 07:47 08:00 11:09 Pulse Ox 96 96 O2 Delivery Nasal Cannula Nasal Cannula Nasal Cannula O2 Flow Rate 2.0 2.0 2.0 Intake and Output 03/03/21 03/03/21 03/04/21 15:00 23:00 07:00 Intake Total 1000 ml 100 ml Output Total 1465 ml 510 ml Balance -465 ml -410 ml ALICE LOVE MD Mar 04, 2021 11:47
--- NOTE | 2021-03-04 12:27 | PDOC ---
[facility] PROGRESS NOTE Date of Service DOS: DATE: 03/04/21 TIME: 12:23 Chief Complaint Chief Complaint A/P: Abdominal pain S/p ventricular hernia repair 02/13 Post-op AFIB/flutter with RVR - SR with PACs. on lovenox ppx dosing and IV metoprolol Acute respiratory failure - likely secondary to acute COPD and acute diastolic CHF worsened by Afib as above Acute diastolic CHF - cardiology following, Echo with no reduction in EF Hypertensive urgency - seems to be due to pain Anemia - hgb drift to 8.2 H/o breast CA s/p radiation Hyperkalemia - resolved Encephalopathy - remains lethargic Chronic obstructive pulmonary disease, unknown FEV1 Hypernatremia -nephrology following Possible aspiration pneumonia versus fluid overload-start Dapto Zosyn for broad- spectrum coverage. Line may need to be removed if blood cultures positive. ID reconsulted. Continue as needed IV Lasix History of Present Illness History of Present Illness Ms Dyson is a 75yo female w/ PMHx rheumatoid arthritis, depression, hypertension, breast cancer and prior colectomy who was admitted for a large ventral hernia repair which she underwent on February 13. Had done really well after surgery initially she was actually planning to start trialing liquids, but was transferred to ICU for concern for sepsis and new onset A. fib with RVR requiring a Cardizem drip, cardiology, Infectious Disease and pulmonary were consulted. Patient started on broad-spectrum antibiotics. Pulmonary following. 02/16: ICU today. Her condition has significantly improved since last night. She is awake alert and oriented able to answer questions says pain is under control. Blood pressure holding steady. Remains on Cardizem drip. Continue antibiotics today. Requesting to drink if she can, will defer this decision to surgery. 02/17: She is complaining about some shortness of breath but is feeling comfortable. We will try 1 dose of Lasix today based upon chest x-ray. 02/18: Evaluated at bedside. Patient resting in bed. Appears to be in normal sinus rhythm. No major clinical changes otherwise. 02/19: Evaluated at bedside. Patient resting in bed pursed lip breathing D/W XAVIER/ APPLICATION PROCESSOR, ABG pending d/w in room k 5.8 on tpn pharmacy to adjust k in tpn 02/20: Evaluated at bedside. D/W XAVIER/ APPLICATION PROCESSOR, ABG pending d/w in room k 5.8 on tpn pharmacy to adjust k in tpn 02/21: Transferred from ICU overnight. Still very confused. Family says she said hello. Moving all 4 extremities. Afebrile. NA 156. WBC 19.2, Hb 8.1. D/w family bedside. 02/22: NA 158. Afebrile. Asking for coffee. Still requiring 3L NCO2. D/w surgery given her deconditioning and need for IV nutrition she would need likely referral to LTACH. 02/23: NA 162. Afebrile. More alert. Asking for food. No BM. Very weak, d/w beside to consider LTACH. Chest radiograph with PICC crossing midline. Diet advanced 02/24: Afebrile overnight. Feeling a little worse. She is taking p.o. had some juice had a bowel movement. Chest radiograph revealed PICC has become malpositioned. IV on hold. Afebrile. NA 137. Feels a little hot. Has been upset about PICC and making sure she is getting her medications. Reassured she can appropriately medicated by mouth. She is asking for some cold to drink. Noted she still on thickened liquids 02/26 Patient evaluated at bedside. Still frustrated about PICC line, imaging shows it is in the left subclavian. From medical standpoint patient with hypernatremia of 162 today. Still mentating well. Nephrology following. Defer rest to primary surgical team 02/27 Patient evaluated at bedside, she does remain very weak still. 6 min walk ordered but question if she will be able to complete. Labs from today pending still. 02/28 Patient evaluated and examined at bedside. Pretty lethargic this morning informed by bedside nurse she had a hemoglobin below 7 along with an elevated temperature to 100. Patient also was made n.p.o. today after speech evaluation concerned she is aspirating. Contacted surgical team who graciously evaluated the patient. Order chest x-ray patient does appear to have some fluid overload, discussed the case with Dr. Caro who recommended trying a dose of IV Lasix given her fluid overload on exam. Agreed with continuing antibiotics. We will continue to closely monitor. If she should worsen consider ICU transfer. 03/01 Patient evaluated and examined at bedside. She definitely does appear better but still relatively lethargic. Giving another dose of Lasix this morning as she is clinically fluid overloaded still. Remains n.p.o. per speech. Given leukocytosis and fevers will reconsult infectious disease. 03/02 Patient evaluated examined at bedside. She reports being a little bit better but is still has a pretty fragile respiratory status. Continue as needed diuresing along with antibiotics. Cardiology and infectious disease following. Continue to Dapto Zosyn blood cultures no growth today. Diuresis needed. Patient remains very very weak and family still adamant about bringing her home after discharge. Given her current status this really would not be safe. 03/03 Patient evaluated and examined at bedside. Family finally agreeable to SNF placement. Patient improving with Dapto and Zosyn continue this. Remains n.p.o. continue with TPN. Speech eval's per speech therapy PT OT likely discharge early next week 03/04 Patient evaluated and examined at bedside. She definitely has improved says her breathing is much better. Okay to stop Dapto continue Zosyn. Blood cultures no growth to date. Hopeful for another speech eval sometime this week continue TPN in the meantime. Vitals/I&O Vitals/I&O: Vital Signs Date Time Temp Pulse Resp B/P (MAP) Pulse Ox O2 Delivery O2 Flow Rate FiO2 03/04/21 11:09 96 Nasal Cannula 2.0 03/04/21 07:00 98.6 86 18 174/77 (109) 98.6 I & O 03/03/21 03/03/21 03/04/21 15:00 23:00 07:00 Intake Total 1000 ml 100 ml Output Total 1465 ml 510 ml Balance -465 ml -410 ml Physical Exam Physical Exam: GENERAL: Sleepy but arousable HEENT: Normocephalic, atraumatic. Anicteric. Dry mouth NECK: Supple. No JVD. LUNGS: Decreased breath sound at bases no wheezing HEART: Irregularly irregular no murmurs appreciated ABDOMEN: Obese , mildly distended Hypoactive bowel sounds [address] EXTREMITIES mild edema present, no cyanosis MUSCULOSKELETAL: No joint swelling. No decrease in range of motion. CENTRAL NERVOUS SYSTEM: Sleepy, arousable PSYCHIATRIC: Cooperative, calm PICC line removed General: Alert, No acute distress Heart: Regular rate, Normal S1, Normal S2 Lungs: Clear Abdomen: Soft, No tenderness, Other (incision healing nicely) Extremities: No edema, Normal pulses Skin: No significant lesion Labs Labs: Laboratory Tests Test 03/03/21 18:23 03/03/21 23:00 03/04/21 06:06 03/04/21 12:00 Glucose (Fingerstick) 131 mg/dL (70-99) 106 mg/dL (70-99) 94 mg/dL (70-99) 130 mg/dL (70-99) Comment Review of Relevant I have reviewed the following items keely (where applicable) has been applied. Justifications for Admission Other Justification BENY HUGGINS MD Mar 04, 2021 12:27
[2021-03-04 15:00] VITALS: BP 154/68
[2021-03-04] MEDS: ENOXAPARIN 40 MG/0.4 ML SYRINGE. SQ SCH (18:33)
--- NOTE | 2021-03-04 19:13 | PDOC ---
SURGICAL PROGRESS NOTE DATE: 03/04/21 TIME: 19:10 Subjective Pt feels better, wants to eat Vital Signs Vital Signs Date Time Temp Pulse Resp B/P (MAP) Pulse Ox O2 Delivery O2 Flow Rate FiO2 03/04/21 18:35 67 169/65 03/04/21 15:45 97 Nasal Cannula 2.0 03/04/21 15:00 98.9 18 98.9 I&O Intake and Output 03/04/21 07:00 Intake Total 1100 ml Output Total 1975 ml Balance -875 ml IV Total 1100 ml Output Urine Total 1950 ml Drainage Total 25 ml General: Alert, Oriented X3, Cooperative, No acute distress Abdomen: Soft, No tenderness Labs Laboratory Tests Test 03/02/21 23:43 03/03/21 04:30 03/03/21 05:59 03/03/21 11:59 Glucose (Fingerstick) 116 mg/dL (70-99) 91 mg/dL (70-99) 113 mg/dL (70-99) White Blood Count 5.9 x10^3/uL (4.0-11.0) Red Blood Count 2.82 x10^6/uL (3.50-5.40) Hemoglobin 8.8 g/dL (12.0-15.5) Hematocrit 26.1 % (36.0-47.0) Mean Corpuscular Volume 93 fL (79-100) Mean Corpuscular Hemoglobin 31 pg (25-35) Mean Corpuscular Hemoglobin Concent 34 g/dL (31-37) Red Cell Distribution Width 16.6 % (11.5-14.5) Platelet Count 152 x10^3/uL (140-400) Neutrophils (%) (Auto) 80 % (31-73) Lymphocytes (%) (Auto) 8 % (24-48) Monocytes (%) (Auto) 11 % (0-9) Eosinophils (%) (Auto) 2 % (0-3) Basophils (%) (Auto) 0 % (0-3) Neutrophils # (Auto) 4.7 x10^3/uL (1.8-7.7) Lymphocytes # (Auto) 0.4 x10^3/uL (1.0-4.8) Monocytes # (Auto) 0.7 x10^3/uL (0.0-1.1) Eosinophils # (Auto) 0.1 x10^3/uL (0.0-0.7) Basophils # (Auto) 0.0 x10^3/uL (0.0-0.2) Sodium Level 142 mmol/L (136-145) Potassium Level 3.7 mmol/L (3.5-5.1) Chloride Level 110 mmol/L (98-107) Carbon Dioxide Level 25 mmol/L (21-32) Anion Gap 7 (6-14) Blood Urea Nitrogen 21 mg/dL (7-20) Creatinine 0.6 mg/dL (0.6-1.0) Estimated GFR (Cockcroft-Gault) 96.9 Glucose Level 94 mg/dL (70-99) Calcium Level 6.6 mg/dL (8.5-10.1) Phosphorus Level 2.5 mg/dL (2.6-4.7) Magnesium Level 2.1 mg/dL (1.8-2.4) Creatine Kinase 75 U/L (26-192) Triglycerides Level 285 mg/dL (0-150) Test 03/03/21 18:23 03/03/21 23:00 03/04/21 06:06 03/04/21 12:00 Glucose (Fingerstick) 131 mg/dL (70-99) 106 mg/dL (70-99) 94 mg/dL (70-99) 130 mg/dL (70-99) Test 03/04/21 18:48 Glucose (Fingerstick) 164 mg/dL (70-99) Laboratory Tests Test 03/03/21 23:00 03/04/21 06:06 03/04/21 12:00 03/04/21 18:48 Glucose (Fingerstick) 106 mg/dL (70-99) 94 mg/dL (70-99) 130 mg/dL (70-99) 164 mg/dL (70-99) Assessment/Plan s/p VIH cont supportive care gradual improvement Justicifation of Admission Dx: Justifications for Admission: Justification of Admission Dx: Yes ILIA FERNÁNDEZ MD Mar 04, 2021 19:13
[2021-03-04 19:24] VITALS: BP 169/65
[2021-03-04] MEDS: AA 4.25 %/CALCIUM/LYTES/D5W 1,000 ML IV SCH (22:32)
[2021-03-04] MEDS: INSULIN GLARGINE SYRINGE. SQ SCH (22:36)
[2021-03-04] MEDS: FAMOTIDINE 20 MG/2 ML VIAL IVP SCH (22:38)
[2021-03-04 22:56] VITALS: BP 175/72
[2021-03-05 03:01] VITALS: BP 183/75
[2021-03-05] MEDS: ONDANSETRON PF 4 MG/2 ML VIAL. IVP PRN (04:06)
[2021-03-05] MEDS: fentaNYL PF VIAL 100 MCG/2 ML VIAL IVP PRN (04:08)
[2021-03-05] MEDS: ENALAPRILAT 1.25 MG/ML VIAL. IVP SCH (04:09)
[2021-03-05] MEDS: NITROGLYCERIN OINT 1 GM PACKET. TP SCH ×4 (06:00→23:46)
[2021-03-05] MEDS: PIPERACILLIN/TAZOBACTAM 3.375 GM in IV NORMAL SALINE 50ML 50 ML IV SCH ×4 (06:20→23:47)
[2021-03-05] MEDS: METOPROLOL IV PUSH 5 MG/5 ML VIAL. IVP SCH (06:21)
[2021-03-05 07:00] VITALS: BP 149/65
[2021-03-05] MEDS: INSULIN LISPRO 300 UNITS/3 ML VIAL. SQ SCH ×4 (07:30→21:00)
[2021-03-05] MEDS: IPRATROPIUM BROMIDE 0.5 MG/2.5 ML NEBU. NEB SCH ×4 (07:58→20:29)
[2021-03-05] MEDS: BUDESONIDE 0.5 MG/2 ML NEBU. NEB SCH ×2 (07:58→20:29)
[2021-03-05] MEDS: LACTOBACILLUS RHAMNOSUS GG 1 CAPSULE. PO SCH ×2 (08:22→22:30)
[2021-03-05] MEDS: NYSTATIN 100,000 UNITS/ML 5 ML ORAL.SUSP. SWSW SCH ×4 (08:22→21:00)
[2021-03-05] MEDS: methylPREDNISolone SOD SUCC PF 40 MG/ML VIAL. IV SCH (08:23)
--- NOTE | 2021-03-05 09:34 | PDOC ---
Infectious Disease Note Subjective Subjective Patient states feels better Denies any fevers or chills wants water ROS ROS no n/v/d/abd pain Vital Sign Vital Signs Vital Signs Date Time Temp Pulse Resp B/P (MAP) Pulse Ox O2 Delivery O2 Flow Rate FiO2 03/05/21 07:58 96 Nasal Cannula 2.0 03/05/21 07:00 100.2 85 16 149/65 (93) 100.2 Physical Exam PHYSICAL EXAM GENERAL: awake HEENT: Normocephalic, atraumatic. Anicteric. Dry mouth NECK: Supple. No JVD. LUNGS: Decreased breath sound at bases no wheezing HEART: Irregularly irregular no murmurs appreciated ABDOMEN: Obese , mildly distended Hypoactive bowel sounds [address] EXTREMITIES mild edema present, no cyanosis MUSCULOSKELETAL: No joint swelling. No decrease in range of motion. CENTRAL NERVOUS SYSTEM: Sleepy, arousable PSYCHIATRIC: Cooperative, calm PICC line removed Labs Lab Laboratory Tests Test 03/04/21 12:00 03/04/21 18:48 03/04/21 22:22 03/05/21 06:18 Glucose (Fingerstick) 130 mg/dL (70-99) 164 mg/dL (70-99) 117 mg/dL (70-99) 103 mg/dL (70-99) Micro Microbiology 03/01/21 Blood Culture - Preliminary, Resulted NO GROWTH AFTER 4 DAYS Objective Assessment Patient with prolonged hospitalization Fever Status post large ventral hernia repair on February 12, 2021, drains in place Possible aspiration pneumonia Encephalopathy appears metabolic improved Leukocytosis was on steroids Anemia that is post blood transfusion A. fib with RVR CHF Renal insufficiency Rheumatoid arthritis Depression History of breast cancer Hypertension Dysphagia Plan Plan of Care Continue Zosyn PICC line has been discontinued Maintain PIV Follow-up repeat blood cultures Sputum cultures pending Maintain aspiration precaution PT and OT as tolerated d/w MARV MONTEMAYOR MD Mar 05, 2021 09:34
--- NOTE | 2021-03-05 09:46 | PDOC ---
CLIFFORD MERLOS S[employer]IOR [employer] ADMINISTRATOR 03/05/21 0946: CARDIO Progress Notes Date and Time Date of Service 03/05/21 Time of Evaluation 0930 Subjective Subjective: No Chest Pain, No shortness of breath, No Palpitations Vitals Vitals Vital Signs Date Time Temp Pulse Resp B/P (MAP) Pulse Ox O2 Delivery O2 Flow Rate FiO2 03/05/21 07:58 96 Nasal Cannula 2.0 03/05/21 07:00 100.2 85 16 149/65 (93) 100.2 Weight Weight [ ] Input and Output Intake and Output Intake and Output 03/05/21 07:00 Output Total 1397 ml Balance -1397 ml Output Urine Total 1350 ml Drainage Total 47 ml # Bowel Movements 3 Laboratory Labs Laboratory Tests Test 03/04/21 12:00 03/04/21 18:48 03/04/21 22:22 03/05/21 06:18 Glucose (Fingerstick) 130 mg/dL (70-99) 164 mg/dL (70-99) 117 mg/dL (70-99) 103 mg/dL (70-99) Microbiology Micro Microbiology 03/01/21 Blood Culture - Preliminary, Resulted NO GROWTH AFTER 4 DAYS Physical Exam HEENT: Neck Supple W Full Motion Chest: Symmetric LUNGS: Other (diminished bases) Heart: RRR (SR) Abdomen: Other (obese; abdominal incision) Extremities: No Edema Neurology: alert, oriented, follow commands Assessment Assessment 1. S/p ventricular hernia repair 02/13. 2. Post-op AFIB/flutter with RVR; maintaining SR. She is presently a poor AC candidate. 3. Acute respiratory failure with AECOPD, CHF improved 4. Acute on chronic diastolic CHF; echo with preserved LV systolic function, appears compensated 5. Hypertensive urgency: labile 6. Anemia; s/p transfusion. hgb 8.8 7. H/o breast CA s/p radiation 8. Hyperkalemia; resolved 9. Encephalopathy: resolved Recommendations Now able to take PO Will convert metoprolol and enalapril to oral Eliquis held secondary to thrombocytopenia, anemia. Recheck am CBC If hgb, PLT stable, add ASA if okay from a surgical standpoint Consider outpatient referral for left atrial appendage closure Continue post-op management per surgical team Supportive care Justicifation of Admission Dx: Justifications for Admission: Justification of Admission Dx: Yes ALICE LOVE MD 03/05/212105: CARDIO Progress Notes Assessment Assessment Patient seen and examined. Agree with UROGYNAECOLOGIST's assessment and plan. Post op AF maintaining SR Ac on chr diastolic HF better compensated Plan outpatient referral for CLIFFORD MOORE APRN Mar 05, 2021 09:46 ALICE LOVE MD Mar 05, 2021 21:06
--- NOTE | 2021-03-05 09:58 | PDOC ---
SURGICAL PROGRESS NOTE DATE: 03/05/21 TIME: 09:48 Subjective awaiting speech follow up complaints of abdominal pain this weekend, she reports improved now--there was concern from nurse drain might have purulence Vital Signs Vital Signs Date Time Temp Pulse Resp B/P (MAP) Pulse Ox O2 Delivery O2 Flow Rate FiO2 03/05/21 07:58 96 Nasal Cannula 2.0 03/05/21 07:00 100.2 85 16 149/65 (93) 100.2 I&O Intake and Output 03/05/21 07:00 Output Total 1397 ml Balance -1397 ml Output Urine Total 1350 ml Drainage Total 47 ml # Bowel Movements 3 General: Alert, Cooperative Abdomen: Soft, No tenderness, Other (incision without sign of infection, right drain scant serous fluid, left drain serosang fluid, no sign of purulent drainage at this time ) Labs Laboratory Tests Test 03/03/21 11:59 03/03/21 18:23 03/03/21 23:00 03/04/21 06:06 Glucose (Fingerstick) 113 mg/dL (70-99) 131 mg/dL (70-99) 106 mg/dL (70-99) 94 mg/dL (70-99) Test 03/04/21 12:00 03/04/21 18:48 03/04/21 22:22 03/05/21 06:18 Glucose (Fingerstick) 130 mg/dL (70-99) 164 mg/dL (70-99) 117 mg/dL (70-99) 103 mg/dL (70-99) Laboratory Tests Test 03/04/21 12:00 03/04/21 18:48 03/04/21 22:22 03/05/21 06:18 Glucose (Fingerstick) 130 mg/dL (70-99) 164 mg/dL (70-99) 117 mg/dL (70-99) 103 mg/dL (70-99) Assessment/Plan supportive care continue drains for now await speech FU if mobility improving consider DC [place] Justicifation of Admission Dx: Justifications for Admission: Justification of Admission Dx: Yes LELA MARIE BUFF WHEEL FABRICATOR Mar 05, 2021 09:58
--- NOTE | 2021-03-05 10:55 | PDOC ---
[facility] [facility] PROGRESS NOTE Date of Service DOS: DATE: 03/05/21 TIME: 10:51 Chief Complaint Chief Complaint A/P: Abdominal pain S/p ventricular hernia repair 02/13 Post-op AFIB/flutter with RVR - SR with PACs. on lovenox ppx dosing and IV metoprolol Acute respiratory failure - likely secondary to acute COPD and acute diastolic CHF worsened by Afib as above Acute diastolic CHF - cardiology following, Echo with no reduction in EF Hypertensive urgency - seems to be due to pain Anemia - hgb drift to 8.2 H/o breast CA s/p radiation Hyperkalemia - resolved Encephalopathy - remains lethargic Chronic obstructive pulmonary disease, unknown FEV1 Hypernatremia -nephrology following Possible aspiration pneumonia versus fluid overload-start Dapto Zosyn for broad- spectrum coverage. Line may need to be removed if blood cultures positive. ID reconsulted. Continue as needed IV Lasix History of Present Illness History of Present Illness Ms Dyson is a 75yo female w/ PMHx rheumatoid arthritis, depression, hypertension, breast cancer and prior colectomy who was admitted for a large ventral hernia repair which she underwent on February 13. Had done really well after surgery initially she was actually planning to start trialing liquids, but was transferred to ICU for concern for sepsis and new onset A. fib with RVR requiring a Cardizem drip, cardiology, Infectious Disease and pulmonary were consulted. Patient started on broad-spectrum antibiotics. Pulmonary following. 02/16: ICU today. Her condition has significantly improved since last night. She is awake alert and oriented able to answer questions says pain is under control. Blood pressure holding steady. Remains on Cardizem drip. Continue antibiotics today. Requesting to drink if she can, will defer this decision to surgery. 02/17: She is complaining about some shortness of breath but is feeling comfortable. We will try 1 dose of Lasix today based upon chest x-ray. 02/18: Evaluated at bedside. Patient resting in bed. Appears to be in normal sinus rhythm. No major clinical changes otherwise. 02/19: Evaluated at bedside. Patient resting in bed pursed lip breathing D/W XAVIER/ DRUG ROOM OPERATOR, ABG pending d/w in room k 5.8 on tpn pharmacy to adjust k in tpn 02/20: Evaluated at bedside. D/W XAVIER/ DRUG ROOM OPERATOR, ABG pending d/w in room k 5.8 on tpn pharmacy to adjust k in tpn 02/21: Transferred from ICU overnight. Still very confused. Family says she said hello. Moving all 4 extremities. Afebrile. NA 156. WBC 19.2, Hb 8.1. D/w family bedside. 02/22: NA 158. Afebrile. Asking for coffee. Still requiring 3L NCO2. D/w surgery given her deconditioning and need for IV nutrition she would need likely referral to LTACH. 02/23: NA 162. Afebrile. More alert. Asking for food. No BM. Very weak, d/w beside to consider LTACH. Chest radiograph with PICC crossing midline. Diet advanced 02/24: Afebrile overnight. Feeling a little worse. She is taking p.o. had some juice had a bowel movement. Chest radiograph revealed PICC has become malpositioned. IV on hold. Afebrile. NA 137. Feels a little hot. Has been upset about PICC and making sure she is getting her medications. Reassured she can appropriately medicated by mouth. She is asking for some cold to drink. Noted she still on thickened liquids 02/26 Patient evaluated at bedside. Still frustrated about PICC line, imaging shows it is in the left subclavian. From medical standpoint patient with hypernatremia of 162 today. Still mentating well. Nephrology following. Defer rest to primary surgical team 02/27 Patient evaluated at bedside, she does remain very weak still. 6 min walk ordered but question if she will be able to complete. Labs from today pending still. 02/28 Patient evaluated and examined at bedside. Pretty lethargic this morning informed by bedside nurse she had a hemoglobin below 7 along with an elevated temperature to 100. Patient also was made n.p.o. today after speech evaluation concerned she is aspirating. Contacted surgical team who graciously evaluated the patient. Order chest x-ray patient does appear to have some fluid overload, discussed the case with Dr. Caro who recommended trying a dose of IV Lasix given her fluid overload on exam. Agreed with continuing antibiotics. We will continue to closely monitor. If she should worsen consider ICU transfer. 03/01 Patient evaluated and examined at bedside. She definitely does appear better but still relatively lethargic. Giving another dose of Lasix this morning as she is clinically fluid overloaded still. Remains n.p.o. per speech. Given leukocytosis and fevers will reconsult infectious disease. 03/02 Patient evaluated examined at bedside. She reports being a little bit better but is still has a pretty fragile respiratory status. Continue as needed diuresing along with antibiotics. Cardiology and infectious disease following. Continue to Dapto Zosyn blood cultures no growth today. Diuresis needed. Patient remains very very weak and family still adamant about bringing her home after discharge. Given her current status this really would not be safe. 03/03 Patient evaluated and examined at bedside. Family finally agreeable to SNF placement. Patient improving with Dapto and Zosyn continue this. Remains n.p.o. continue with TPN. Speech eval's per speech therapy PT OT likely discharge early next week 03/04 Patient evaluated and examined at bedside. She definitely has improved says her breathing is much better. Okay to stop Dapto continue Zosyn. Blood cultures no growth to date. Hopeful for another speech eval sometime this week continue TPN in the meantime. 03/05: Low-grade fever this morning (T-max 100.2 F), suspect due to basilar atelectasis her history of aspiration pneumonia. Patient states she feels better, and denies any significant abdominal pain. Work with ST and recommended dysphagia diet. Encouraged working with PT/OT as much as tolerable. Repeat blood cultures with no growth to date. Vitals/I&O Vitals/I&O: Vital Signs Date Time Temp Pulse Resp B/P (MAP) Pulse Ox O2 Delivery O2 Flow Rate FiO2 03/05/21 08:00 Nasal Cannula 2.0 03/05/21 07:58 96 03/05/21 07:00 100.2 85 16 149/65 (93) 100.2 I & O 03/04/21 03/04/21 03/05/21 15:00 23:00 07:00 Output Total 740 ml 657 ml Balance -740 ml -657 ml Physical Exam Physical Exam: GENERAL: awake HEENT: Normocephalic, atraumatic. Anicteric. Dry mouth NECK: Supple. No JVD. LUNGS: Decreased breath sound at bases no wheezing HEART: Irregularly irregular no murmurs appreciated ABDOMEN: Obese , mildly distended Hypoactive bowel sounds [address] EXTREMITIES mild edema present, no cyanosis MUSCULOSKELETAL: No joint swelling. No decrease in range of motion. CENTRAL NERVOUS SYSTEM: Sleepy, arousable PSYCHIATRIC: Cooperative, calm PICC line removed General: Alert, Cooperative Heart: Regular rate, Normal S1, Normal S2 Lungs: Clear Abdomen: Soft, No tenderness, Other (incision without sign of infection, right drain scant serous fluid, left drain serosang fluid, no sign of purulent drainage at this time ) Extremities: No edema, Normal pulses Skin: No significant lesion Labs Labs: Laboratory Tests Test 03/04/21 12:00 03/04/21 18:48 03/04/21 22:22 03/05/21 06:18 Glucose (Fingerstick) 130 mg/dL (70-99) 164 mg/dL (70-99) 117 mg/dL (70-99) 103 mg/dL (70-99) Comment Review of Relevant I have reviewed the following items keely (where applicable) has been applied. Justifications for Admission Other Justification IVANA SPRAGUE MD Mar 05, 2021 10:55
[2021-03-05 11:00] VITALS: BP 167/72
[2021-03-05] MEDS: AA 4.25 %/CALCIUM/LYTES/D5W 1,000 ML IV SCH ×2 (12:00→23:47)
[2021-03-05] MEDS: METOPROLOL TART IMMED RELEASE 50 MG TABLET. PO SCH ×2 (12:29→22:30)
[2021-03-05] MEDS: LISINOPRIL 10 MG TABLET PO SCH (12:29)
--- NOTE | 2021-03-05 14:11 | NUR ---
SS following up with discharge planning. SS reviewed pt chart and discussed with pt RN. Pt is currently requiring oxygen at two liters nasal canula. COVID19 negative. Pt on IV Zosyn, IV Solu-Medrol, and Clinimix. PO diet now. Honey thick liquids. Drains in place. PT/OT recommended halfway unit. Pt accepted at [facility], ; fax [phone]. Clinical updates phoned and faxed to [facility]. SS will continue to follow for discharge planning.
[2021-03-05 15:00] VITALS: BP 145/58
[2021-03-05] MEDS: ENOXAPARIN 40 MG/0.4 ML SYRINGE. SQ SCH (18:00)
[2021-03-05 19:22] VITALS: BP 145/58
[2021-03-05 22:15] VITALS: BP 165/70
[2021-03-05] MEDS: FAMOTIDINE 20 MG/2 ML VIAL IVP SCH (22:30)
[2021-03-05] MEDS: INSULIN GLARGINE SYRINGE. SQ SCH (22:31)
[2021-03-06 03:37] VITALS: BP 165/65
[2021-03-06] MEDS: NITROGLYCERIN OINT 1 GM PACKET. TP SCH ×3 (06:00→17:32)
[2021-03-06] MEDS: PIPERACILLIN/TAZOBACTAM 3.375 GM in IV NORMAL SALINE 50ML 50 ML IV SCH (06:07)
[2021-03-06 07:00] VITALS: BP 157/58
[2021-03-06] MEDS: INSULIN LISPRO 300 UNITS/3 ML VIAL. SQ SCH ×4 (07:30→20:15)
[2021-03-06] MEDS: methylPREDNISolone SOD SUCC PF 40 MG/ML VIAL. IV SCH (07:53)
[2021-03-06] MEDS: LACTOBACILLUS RHAMNOSUS GG 1 CAPSULE. PO SCH ×2 (07:53→20:13)
[2021-03-06] MEDS: NYSTATIN 100,000 UNITS/ML 5 ML ORAL.SUSP. SWSW SCH ×4 (07:53→20:15)
[2021-03-06] MEDS: METOPROLOL TART IMMED RELEASE 50 MG TABLET. PO SCH ×2 (07:54→20:14)
[2021-03-06] MEDS: LISINOPRIL 10 MG TABLET PO SCH (07:54)
[2021-03-06] MEDS: BUDESONIDE 0.5 MG/2 ML NEBU. NEB SCH ×2 (08:57→20:22)
[2021-03-06] MEDS: IPRATROPIUM BROMIDE 0.5 MG/2.5 ML NEBU. NEB SCH ×4 (08:57→20:22)
--- NOTE | 2021-03-06 09:08 | PDOC ---
SURGICAL PROGRESS NOTE DATE: 03/06/21 TIME: 09:07 Subjective started on thickened diet yesterday abdominal pain with activity Vital Signs Vital Signs Date Time Temp Pulse Resp B/P (MAP) Pulse Ox O2 Delivery O2 Flow Rate FiO2 03/06/21 08:59 97 Nasal Cannula 2.0 03/06/21 07:54 75 157/58 03/06/21 07:00 97.5 20 97.5 I&O Intake and Output 03/06/21 07:00 Intake Total 100 ml Output Total 1250 ml Balance -1150 ml Intake Oral 100 ml Output Urine Total 1200 ml Drainage Total 50 ml # Bowel Movements 1 General: Alert, Oriented X3 Abdomen: Soft, Other (incision intact, right drain no output, scant serosang in left drain ) Labs Laboratory Tests Test 03/04/21 12:00 03/04/21 18:48 03/04/21 22:22 03/05/21 06:18 Glucose (Fingerstick) 130 mg/dL (70-99) 164 mg/dL (70-99) 117 mg/dL (70-99) 103 mg/dL (70-99) Test 03/05/21 12:33 03/05/21 16:07 03/05/21 21:25 03/06/21 07:37 Glucose (Fingerstick) 136 mg/dL (70-99) 149 mg/dL (70-99) 108 mg/dL (70-99) 107 mg/dL (70-99) Laboratory Tests Test 03/05/21 12:33 03/05/21 16:07 03/05/21 21:25 03/06/21 07:37 Glucose (Fingerstick) 136 mg/dL (70-99) 149 mg/dL (70-99) 108 mg/dL (70-99) 107 mg/dL (70-99) Assessment/Plan continue diet as per speech would continue increasing activity/mobility as can Justicifation of Admission Dx: Justifications for Admission: Justification of Admission Dx: Yes LELA MARIE APRN Mar 06, 2021 09:08
--- NOTE | 2021-03-06 09:50 | PDOC ---
[employer] [facility] PROGRESS NOTE Date of Service DOS: DATE: 03/06/21 TIME: 09:45 Chief Complaint Chief Complaint A/P: Abdominal pain S/p ventricular hernia repair 02/13 Post-op AFIB/flutter with RVR - SR with PACs. on lovenox ppx dosing and IV metoprolol Acute respiratory failure - likely secondary to acute COPD and acute diastolic CHF worsened by Afib as above Acute diastolic CHF - cardiology following, Echo with no reduction in EF Hypertensive urgency - seems to be due to pain Anemia - hgb drift to 8.2 H/o breast CA s/p radiation Hyperkalemia - resolved Encephalopathy - remains lethargic Chronic obstructive pulmonary disease, unknown FEV1 Hypernatremia -nephrology following Possible aspiration pneumonia versus fluid overload-start Dapto Zosyn for broad- spectrum coverage. Line may need to be removed if blood cultures positive. ID reconsulted. Continue as needed IV Lasix History of Present Illness History of Present Illness Ms Dyson is a 75yo female w/ PMHx rheumatoid arthritis, depression, hypertension, breast cancer and prior colectomy who was admitted for a large ventral hernia repair which she underwent on February 13. Had done really well after surgery initially she was actually planning to start trialing liquids, but was transferred to ICU for concern for sepsis and new onset A. fib with RVR requiring a Cardizem drip, cardiology, Infectious Disease and pulmonary were consulted. Patient started on broad-spectrum antibiotics. Pulmonary following. 02/16: ICU today. Her condition has significantly improved since last night. She is awake alert and oriented able to answer questions says pain is under control. Blood pressure holding steady. Remains on Cardizem drip. Continue antibiotics today. Requesting to drink if she can, will defer this decision to surgery. 02/17: She is complaining about some shortness of breath but is feeling comfortable. We will try 1 dose of Lasix today based upon chest x-ray. 02/18: Evaluated at bedside. Patient resting in bed. Appears to be in normal sinus rhythm. No major clinical changes otherwise. 02/19: Evaluated at bedside. Patient resting in bed pursed lip breathing D/W XAVIER/ APPLIED PSYCHOLOGY TEACHER, ABG pending d/w in room k 5.8 on tpn pharmacy to adjust k in tpn 02/20: Evaluated at bedside. D/W XAVIER/ APPLIED PSYCHOLOGY TEACHER, ABG pending d/w in room k 5.8 on tpn pharmacy to adjust k in tpn 02/21: Transferred from ICU overnight. Still very confused. Family says she said hello. Moving all 4 extremities. Afebrile. NA 156. WBC 19.2, Hb 8.1. D/w family bedside. 02/22: NA 158. Afebrile. Asking for coffee. Still requiring 3L NCO2. D/w surgery given her deconditioning and need for IV nutrition she would need likely referral to LTACH. 02/23: NA 162. Afebrile. More alert. Asking for food. No BM. Very weak, d/w beside to consider LTACH. Chest radiograph with PICC crossing midline. Diet advanced 02/24: Afebrile overnight. Feeling a little worse. She is taking p.o. had some juice had a bowel movement. Chest radiograph revealed PICC has become malpositioned. IV on hold. Afebrile. NA 137. Feels a little hot. Has been upset about PICC and making sure she is getting her medications. Reassured she can appropriately medicated by mouth. She is asking for some cold to drink. Noted she still on thickened liquids 02/26 Patient evaluated at bedside. Still frustrated about PICC line, imaging shows it is in the left subclavian. From medical standpoint patient with hypernatremia of 162 today. Still mentating well. Nephrology following. Defer rest to primary surgical team 02/27 Patient evaluated at bedside, she does remain very weak still. 6 min walk ordered but question if she will be able to complete. Labs from today pending still. 02/28 Patient evaluated and examined at bedside. Pretty lethargic this morning informed by bedside nurse she had a hemoglobin below 7 along with an elevated temperature to 100. Patient also was made n.p.o. today after speech evaluation concerned she is aspirating. Contacted surgical team who graciously evaluated the patient. Order chest x-ray patient does appear to have some fluid overload, discussed the case with Dr. Caro who recommended trying a dose of IV Lasix given her fluid overload on exam. Agreed with continuing antibiotics. We will continue to closely monitor. If she should worsen consider ICU transfer. 03/01 Patient evaluated and examined at bedside. She definitely does appear better but still relatively lethargic. Giving another dose of Lasix this morning as she is clinically fluid overloaded still. Remains n.p.o. per speech. Given leukocytosis and fevers will reconsult infectious disease. 03/02 Patient evaluated examined at bedside. She reports being a little bit better but is still has a pretty fragile respiratory status. Continue as needed diuresing along with antibiotics. Cardiology and infectious disease following. Continue to Dapto Zosyn blood cultures no growth today. Diuresis needed. Patient remains very very weak and family still adamant about bringing her home after discharge. Given her current status this really would not be safe. 03/03 Patient evaluated and examined at bedside. Family finally agreeable to SNF placement. Patient improving with Dapto and Zosyn continue this. Remains n.p.o. continue with TPN. Speech eval's per speech therapy PT OT likely discharge early next week 03/04 Patient evaluated and examined at bedside. She definitely has improved says her breathing is much better. Okay to stop Dapto continue Zosyn. Blood cultures no growth to date. Hopeful for another speech eval sometime this week continue TPN in the meantime. 03/05: Low-grade fever this morning (T-max 100.2 F), suspect due to basilar atelectasis her history of aspiration pneumonia. Patient states she feels better, and denies any significant abdominal pain. Work with ST and recommended dysphagia diet. Encouraged working with PT/OT as much as tolerable. Repeat blood cultures with no growth to date. 03/06: Afebrile, still breathing on 2 L nasal cannula. Abdominal pain remains well controlled. Final blood cultures with no growth. Continue IV antibiot ics, per ID. Tolerating dysphagia diet. Discussed with social media designer, [facility], and [facility] could happen today or tomorrow. Discussed with speech therapy, will try to complete video swallow study today [facility] to discharge [facility] pending insurance authorization. Vitals/I&O Vitals/I&O: Vital Signs Date Time Temp Pulse Resp B/P (MAP) Pulse Ox O2 Delivery O2 Flow Rate FiO2 03/06/21 08:59 97 Nasal Cannula 2.0 03/06/21 07:54 75 157/58 03/06/21 07:00 97.5 20 97.5 I & O 03/05/21 03/05/2121 15:00 23:00 07:00 Intake Total 100 ml 0 ml Output Total 500 ml 750 ml Balance 100 ml -500 ml -750 ml Physical Exam Physical Exam: GENERAL: awake HEENT: Normocephalic, atraumatic. Anicteric. Dry mouth NECK: Supple. No JVD. LUNGS: Decreased breath sound at bases no wheezing HEART: Irregularly irregular no murmurs appreciated ABDOMEN: Obese , mildly distended Hypoactive bowel sounds [address] EXTREMITIES mild edema present, no cyanosis MUSCULOSKELETAL: No joint swelling. No decrease in range of motion. CENTRAL NERVOUS SYSTEM: Sleepy, arousable PSYCHIATRIC: Cooperative, calm PICC line removed General: Alert, Oriented X3 Heart: Regular rate, Normal S1, Normal S2 Lungs: Clear Abdomen: Soft, Other (incision intact, right drain no output, scant serosang in left drain ) Extremities: No edema, Normal pulses Skin: No significant lesion Labs Labs: Laboratory Tests Test 03/05/21 12:33 03/05/21 16:07 03/05/21 21:25 03/06/21 07:37 Glucose (Fingerstick) 136 mg/dL (70-99) 149 mg/dL (70-99) 108 mg/dL (70-99) 107 mg/dL (70-99) Comment Review of Relevant I have reviewed the following items keely (where applicable) has been applied. Medications: Current Medications Medications (Trade) Dose Ordered Sig/Isael Route PRN Reason Start Time Stop Time Status Last Admin Dose Admin Lisinopril (Prinivil) 10 mg DAILY PO 03/05/21 12:15 03/06/21 07:54 Metoprolol Tartrate (Lopressor) 50 mg BID PO 03/05/21 12:15 03/06/21 07:54 Justifications for Admission Other Justification IVANA SPRAGUE MD Mar 06, 2021 09:50
[2021-03-06 10:15] LABS: BASO % 0 % (0-3); EOS # 0.1 x10^3/uL (0.0-0.7); EOS % 2 % (0-3); HEMATOCRIT 27.1 % (36.0-47.0); HEMOGLOBIN 8.9 g/dL (12.0-15.5); LYMPH # 0.3 x10^3/uL (1.0-4.8); LYMPH % 5 % (24-48); MEAN CORPUSCULAR HEMOGLOBIN 31 pg (25-35); MEAN CORPUSCULAR HGB CONC 33 g/dL (31-37); MEAN CORPUSCULAR VOLUME 93 fL (79-100); MONO # 0.3 x10^3/uL (0.0-1.1); MONO % 5 % (0-9); NEUT # 4.9 x10^3/uL (1.8-7.7); NEUT % 88 % (31-73); PLATELET COUNT 155 x10^3/uL (140-400); RED BLOOD COUNT 2.92 x10^6/uL (3.50-5.40); RED CELL DISTRIBUTION WIDTH 16.8 % (11.5-14.5); WHITE BLOOD COUNT 5.6 x10^3/uL (4.0-11.0)
[2021-03-06 10:29] LABS: CALCIUM 7.8 mg/dL (8.5-10.1); CREATININE 0.6 mg/dL (0.6-1.0); GFR 96.9; POTASSIUM 4.1 mmol/L (3.5-5.1)
--- NOTE | 2021-03-06 10:33 | PDOC ---
Infectious Disease Note Subjective Subjective Patient states feels better Denies any fevers or chills Able to get from bed to chair but not walking much yet ROS ROS No nausea vomiting diarrhea or abdominal pain Vital Sign Vital Signs Vital Signs Date Time Temp Pulse Resp B/P (MAP) Pulse Ox O2 Delivery O2 Flow Rate FiO2 03/06/21 08:59 97 Nasal Cannula 2.0 03/06/21 07:54 75 157/58 03/06/21 07:00 97.5 20 97.5 Physical Exam PHYSICAL EXAM GENERAL: awake HEENT: Normocephalic, atraumatic. Anicteric. Dry mouth NECK: Supple. No JVD. LUNGS: Decreased breath sound at bases no wheezing HEART: Irregularly irregular no murmurs appreciated ABDOMEN: Obese , mildly distended Hypoactive bowel sounds [address] EXTREMITIES mild edema present, no cyanosis MUSCULOSKELETAL: No joint swelling. No decrease in range of motion. CENTRAL NERVOUS SYSTEM: Sleepy, arousable PSYCHIATRIC: Cooperative, calm PICC line removed Labs Lab Laboratory Tests Test 03/05/21 12:33 03/05/21 16:07 03/05/21 21:25 03/06/21 07:37 Glucose (Fingerstick) 136 mg/dL (70-99) 149 mg/dL (70-99) 108 mg/dL (70-99) 107 mg/dL (70-99) Test 03/06/21 09:55 White Blood Count 5.6 x10^3/uL (4.0-11.0) Red Blood Count 2.92 x10^6/uL (3.50-5.40) Hemoglobin 8.9 g/dL (12.0-15.5) Hematocrit 27.1 % (36.0-47.0) Mean Corpuscular Volume 93 fL (79-100) Mean Corpuscular Hemoglobin 31 pg (25-35) Mean Corpuscular Hemoglobin Concent 33 g/dL (31-37) Red Cell Distribution Width 16.8 % (11.5-14.5) Platelet Count 155 x10^3/uL (140-400) Neutrophils (%) (Auto) 88 % (31-73) Lymphocytes (%) (Auto) 5 % (24-48) Monocytes (%) (Auto) 5 % (0-9) Eosinophils (%) (Auto) 2 % (0-3) Basophils (%) (Auto) 0 % (0-3) Neutrophils # (Auto) 4.9 x10^3/uL (1.8-7.7) Lymphocytes # (Auto) 0.3 x10^3/uL (1.0-4.8) Monocytes # (Auto) 0.3 x10^3/uL (0.0-1.1) Eosinophils # (Auto) 0.1 x10^3/uL (0.0-0.7) Basophils # (Auto) 0.0 x10^3/uL (0.0-0.2) Sodium Level 141 mmol/L (136-145) Potassium Level 4.1 mmol/L (3.5-5.1) Chloride Level 107 mmol/L (98-107) Carbon Dioxide Level 25 mmol/L (21-32) Anion Gap 9 (6-14) Blood Urea Nitrogen 16 mg/dL (7-20) Creatinine 0.6 mg/dL (0.6-1.0) Estimated GFR (Cockcroft-Gault) 96.9 Glucose Level 119 mg/dL (70-99) Calcium Level 7.8 mg/dL (8.5-10.1) Micro Microbiology 03/01/21 Blood Culture - Preliminary, Resulted NO GROWTH AFTER 4 DAYS Objective Assessment Patient with prolonged hospitalization Fever Status post large ventral hernia repair on February 12, 2021, drains in place Possible aspiration pneumonia Encephalopathy appears metabolic improved Leukocytosis was on steroids Anemia that is post blood transfusion A. fib with RVR CHF Renal insufficiency Rheumatoid arthritis Depression History of breast cancer Hypertension Dysphagia Plan Plan of Care Change Zosyn to p.o. Augmentin Maintain PIV Follow-up repeat blood cultures Sputum cultures pending Maintain aspiration precaution PT and OT as tolerated d/w MARV MONTEMAYOR MD Mar 06, 2021 10:33
[2021-03-06 10:59] VITALS: BP 154/64
[2021-03-06 11:22] LABS: % BANDS 4 % (0-9); % EOS 1 % (0-5); % LYMPHS 3 % (24-48); % MONOS 3 % (0-10); % SEGS 89 % (35-66); PLT ESTIMATE ADEQUATE (ADEQUATE)
--- NOTE | 2021-03-06 11:32 | PDOC ---
CLIFFORD MERLOS LOCKSTITCH TOPSTITCHER 03/06/21 1132: CARDIO Progress Notes Date and Time Date of Service 03/06/21 Time of Evaluation 1130 Subjective Subjective: No Chest Pain, No shortness of breath, No Palpitations, Other (feels weak ) Vitals Vitals Vital Signs Date Time Temp Pulse Resp B/P (MAP) Pulse Ox O2 Delivery O2 Flow Rate FiO2 03/06/21 10:59 98.0 64 18 154/64 (94) 99 Nasal Cannula 2.0 98.0 Weight Weight [ ] Input and Output Intake and Output Intake and Output 03/06/21 07:00 Intake Total 100 ml Output Total 1250 ml Balance -1150 ml Intake Oral 100 ml Output Urine Total 1200 ml Drainage Total 50 ml # Bowel Movements 1 Laboratory Labs Laboratory Tests Test 03/05/21 12:33 03/05/21 16:07 03/05/21 21:25 03/06/21 07:37 Glucose (Fingerstick) 136 mg/dL (70-99) 149 mg/dL (70-99) 108 mg/dL (70-99) 107 mg/dL (70-99) Test 03/06/21 09:55 White Blood Count 5.6 x10^3/uL (4.0-11.0) Red Blood Count 2.92 x10^6/uL (3.50-5.40) Hemoglobin 8.9 g/dL (12.0-15.5) Hematocrit 27.1 % (36.0-47.0) Mean Corpuscular Volume 93 fL (79-100) Mean Corpuscular Hemoglobin 31 pg (25-35) Mean Corpuscular Hemoglobin Concent 33 g/dL (31-37) Red Cell Distribution Width 16.8 % (11.5-14.5) Platelet Count 155 x10^3/uL (140-400) Neutrophils (%) (Auto) 88 % (31-73) Lymphocytes (%) (Auto) 5 % (24-48) Monocytes (%) (Auto) 5 % (0-9) Eosinophils (%) (Auto) 2 % (0-3) Basophils (%) (Auto) 0 % (0-3) Neutrophils # (Auto) 4.9 x10^3/uL (1.8-7.7) Lymphocytes # (Auto) 0.3 x10^3/uL (1.0-4.8) Monocytes # (Auto) 0.3 x10^3/uL (0.0-1.1) Eosinophils # (Auto) 0.1 x10^3/uL (0.0-0.7) Basophils # (Auto) 0.0 x10^3/uL (0.0-0.2) Segmented Neutrophils % 89 % (35-66) Band Neutrophils % 4 % (0-9) Lymphocytes % 3 % (24-48) Monocytes % 3 % (0-10) Eosinophils % 1 % (0-5) Platelet Estimate Adequate (ADEQUATE) Sodium Level 141 mmol/L (136-145) Potassium Level 4.1 mmol/L (3.5-5.1) Chloride Level 107 mmol/L (98-107) Carbon Dioxide Level 25 mmol/L (21-32) Anion Gap 9 (6-14) Blood Urea Nitrogen 16 mg/dL (7-20) Creatinine 0.6 mg/dL (0.6-1.0) Estimated GFR (Cockcroft-Gault) 96.9 Glucose Level 119 mg/dL (70-99) Calcium Level 7.8 mg/dL (8.5-10.1) Microbiology Micro Microbiology 03/01/21 Blood Culture - Final, Complete NO GROWTH AFTER 5 DAYS Physical Exam HEENT: Neck Supple W Full Motion Chest: Symmetric LUNGS: Other (diminished bases) Heart: RRR (SR) Abdomen: Other (obese; abdominal incision) Extremities: No Edema Neurology: alert, oriented, follow commands Assessment Assessment 1. S/p ventricular hernia repair 02/13. 2. Post-op AFIB/flutter with RVR; maintaining SR. She is presently a poor AC candidate. 3. Acute respiratory failure with AECOPD, CHF. improved 4. Acute on chronic diastolic CHF; echo with preserved LV systolic function, appears compensated 5. Hypertensive urgency: mildly elevated 6. Anemia; s/p transfusion. hgb stable at 8.9 7. H/o breast CA s/p radiation 8. Hyperkalemia; resolved 9. Encephalopathy: resolved Recommendations Continue metoprolol for rate control Eliquis held secondary to thrombocytopenia, anemia. Add ASA therapy Consider outpatient referral for left atrial appendage closure Continue post-op management per surgical team Supportive care Justicifation of Admission Dx: Justifications for Admission: Justification of Admission Dx: Yes PASNOORI,ALICE R MD 03/07/21 0635: CARDIO Progress Notes Assessment Assessment Patient seen and examined 03/06/21. Agree with SPRING COILER's assessment and plan. Post op AF maintaining SR Ac on chr diastolic HF better compensated Plan outpatient referral for LAAO Continue post op care per CLIFFORD MERLOS APRN Mar 06, 2021 11:32 ALICE LOVE MD Mar 07, 2021 06:35
[2021-03-06] MEDS: AA 4.25 %/CALCIUM/LYTES/D5W 1,000 ML IV SCH (12:03)
--- NOTE | 2021-03-06 13:10 | NUR ---
SS following up with discharge planning. SS reviewed pt chart and discussed with pt RN. Pt is currently requiring oxygen at two liters nasal canula. COVID19 negative. Pt on IV Solu-Medrol and Clinimix. PO diet now. Honey thick liquids. Drains in place. PT/OT recommended senior living unit. Pt accepted at [facility], ; fax [phone]. Pt is #1 on the list at [facility]. Currently awaiting bed availability at this time. SS will continue to follow for discharge planning.
[2021-03-06] MEDS ORDERED: BARIUM SULFATE 40% (APPLE) 148 GM PWD. PO ONE (13:30)
--- NOTE | 2021-03-06 14:50 | RAD ---
EXAM: Modified barium swallow. HISTORY: Dysphagia. FINDINGS: Barium contrast material was administered orally and multiple consistencies under the direc tion of speech pathology, and followed in its course during swallowing with video fluoroscopy. A flu oroscopic image and multiple videofluoroscopic clips were obtained. Fluoroscopy time 1.4 minutes. The radiologist was present for the entire imaging procedure. The swallowing apparatus functioned normally. There was no laryngeal penetration or aspiration. IMPRESSION: 1. No laryngeal penetration or aspiration. Refer to the full report by speech pathology for more detail. Electronically signed by: Iqra Appiah MD (03/06/2021 2:48 PM) [id number]
[2021-03-06 15:00] VITALS: BP 128/69
[2021-03-06] MEDS ORDERED: LISINOPRIL 10 MG TABLET PO ONE (15:15)
[2021-03-06] MEDS: ENOXAPARIN 40 MG/0.4 ML SYRINGE. SQ SCH (18:18)
[2021-03-06 19:29] VITALS: BP 159/70
[2021-03-06] MEDS: FAMOTIDINE 20 MG/2 ML VIAL IVP SCH (20:14)
[2021-03-06] MEDS: AMOXICILLIN/K CLAV 875/125MG TABLET. PO SCH (20:14)
[2021-03-06] MEDS: ASCORBIC ACID 500 MG TABLET PO SCH (20:14)
[2021-03-06] MEDS: INSULIN GLARGINE SYRINGE. SQ SCH (20:15)
[2021-03-06] MEDS ORDERED: FAMOTIDINE 20 MG TABLET. PO SCH (22:00)
[2021-03-06 23:35] VITALS: BP 155/65
[2021-03-07] MEDS: AA 4.25 %/CALCIUM/LYTES/D5W 1,000 ML IV SCH ×2 (00:56→14:23)
[2021-03-07 03:27] VITALS: BP 169/71
[2021-03-07 04:24] LABS: BASO % 1 % (0-3); EOS # 0.1 x10^3/uL (0.0-0.7); EOS % 3 % (0-3); HEMATOCRIT 26.6 % (36.0-47.0); HEMOGLOBIN 8.8 g/dL (12.0-15.5); LYMPH # 0.7 x10^3/uL (1.0-4.8); LYMPH % 16 % (24-48); MEAN CORPUSCULAR HEMOGLOBIN 31 pg (25-35); MEAN CORPUSCULAR HGB CONC 33 g/dL (31-37); MEAN CORPUSCULAR VOLUME 93 fL (79-100); MONO # 0.4 x10^3/uL (0.0-1.1); MONO % 8 % (0-9); NEUT # 3.4 x10^3/uL (1.8-7.7); NEUT % 73 % (31-73); PLATELET COUNT 146 x10^3/uL (140-400); RED BLOOD COUNT 2.86 x10^6/uL (3.50-5.40); RED CELL DISTRIBUTION WIDTH 17.5 % (11.5-14.5); WHITE BLOOD COUNT 4.6 x10^3/uL (4.0-11.0)
[2021-03-07 04:47] LABS: CALCIUM 7.8 mg/dL (8.5-10.1); CREATININE 0.5 mg/dL (0.6-1.0); GFR 119.6; POTASSIUM 3.6 mmol/L (3.5-5.1)
[2021-03-07] MEDS: NITROGLYCERIN OINT 1 GM PACKET. TP SCH ×5 (06:34→23:29)
[2021-03-07] MEDS: INSULIN LISPRO 300 UNITS/3 ML VIAL. SQ SCH ×4 (07:30→21:00)
[2021-03-07] MEDS: BUDESONIDE 0.5 MG/2 ML NEBU. NEB SCH ×2 (07:38→20:02)
[2021-03-07] MEDS: IPRATROPIUM BROMIDE 0.5 MG/2.5 ML NEBU. NEB SCH ×4 (07:38→20:02)
[2021-03-07 07:55] VITALS: BP 180/76
--- NOTE | 2021-03-07 08:30 | PDOC ---
Infectious Disease Note Subjective Subjective Patient states feels better Denies any fevers or chills Able to get from bed to chair but not walking much yet Vital Sign Vital Signs Vital Signs Date Time Temp Pulse Resp B/P (MAP) Pulse Ox O2 Delivery O2 Flow Rate FiO2 03/07/21 07:55 98.4 88 18 180/76 (110) 99 Nasal Cannula 2.0 98.4 Physical Exam PHYSICAL EXAM GENERAL: awake HEENT: Normocephalic, atraumatic. Anicteric. Dry mouth NECK: Supple. No JVD. LUNGS: Decreased breath sound at bases no wheezing HEART: Irregularly irregular no murmurs appreciated ABDOMEN: Obese , mildly distended Hypoactive bowel sounds [address] EXTREMITIES mild edema present, no cyanosis MUSCULOSKELETAL: No joint swelling. No decrease in range of motion. CENTRAL NERVOUS SYSTEM: Sleepy, arousable PSYCHIATRIC: Cooperative, calm PICC line removed Labs Lab Laboratory Tests Test 03/06/21 09:55 03/06/21 12:00 03/06/21 20:13 03/07/21 03:15 White Blood Count 5.6 x10^3/uL (4.0-11.0) 4.6 x10^3/uL (4.0-11.0) Red Blood Count 2.92 x10^6/uL (3.50-5.40) 2.86 x10^6/uL (3.50-5.40) Hemoglobin 8.9 g/dL (12.0-15.5) 8.8 g/dL (12.0-15.5) Hematocrit 27.1 % (36.0-47.0) 26.6 % (36.0-47.0) Mean Corpuscular Volume 93 fL (79-100) 93 fL (79-100) Mean Corpuscular Hemoglobin 31 pg (25-35) 31 pg (25-35) Mean Corpuscular Hemoglobin Concent 33 g/dL (31-37) 33 g/dL (31-37) Red Cell Distribution Width 16.8 % (11.5-14.5) 17.5 % (11.5-14.5) Platelet Count 155 x10^3/uL (140-400) 146 x10^3/uL (140-400) Neutrophils (%) (Auto) 88 % (31-73) 73 % (31-73) Lymphocytes (%) (Auto) 5 % (24-48) 16 % (24-48) Monocytes (%) (Auto) 5 % (0-9) 8 % (0-9) Eosinophils (%) (Auto) 2 % (0-3) 3 % (0-3) Basophils (%) (Auto) 0 % (0-3) 1 % (0-3) Neutrophils # (Auto) 4.9 x10^3/uL (1.8-7.7) 3.4 x10^3/uL (1.8-7.7) Lymphocytes # (Auto) 0.3 x10^3/uL (1.0-4.8) 0.7 x10^3/uL (1.0-4.8) Monocytes # (Auto) 0.3 x10^3/uL (0.0-1.1) 0.4 x10^3/uL (0.0-1.1) Eosinophils # (Auto) 0.1 x10^3/uL (0.0-0.7) 0.1 x10^3/uL (0.0-0.7) Basophils # (Auto) 0.0 x10^3/uL (0.0-0.2) 0.0 x10^3/uL (0.0-0.2) Segmented Neutrophils % 89 % (35-66) Band Neutrophils % 4 % (0-9) Lymphocytes % 3 % (24-48) Monocytes % 3 % (0-10) Eosinophils % 1 % (0-5) Platelet Estimate Adequate (ADEQUATE) Sodium Level 141 mmol/L (136-145) 140 mmol/L (136-145) Potassium Level 4.1 mmol/L (3.5-5.1) 3.6 mmol/L (3.5-5.1) Chloride Level 107 mmol/L (98-107) 107 mmol/L (98-107) Carbon Dioxide Level 25 mmol/L (21-32) 26 mmol/L (21-32) Anion Gap 9 (6-14) 7 (6-14) Blood Urea Nitrogen 16 mg/dL (7-20) 14 mg/dL (7-20) Creatinine 0.6 mg/dL (0.6-1.0) 0.5 mg/dL (0.6-1.0) Estimated GFR (Cockcroft-Gault) 96.9 119.6 Glucose Level 119 mg/dL (70-99) 73 mg/dL (70-99) Calcium Level 7.8 mg/dL (8.5-10.1) 7.8 mg/dL (8.5-10.1) Glucose (Fingerstick) 126 mg/dL (70-99) 111 mg/dL (70-99) Test 03/07/21 08:04 Glucose (Fingerstick) 86 mg/dL (70-99) Micro Microbiology 03/01/21 Blood Culture - Preliminary, Resulted NO GROWTH AFTER 4 DAYS Objective Assessment Patient with prolonged hospitalization Fever Status post large ventral hernia repair on February 12, 2021, drains in place Possible aspiration pneumonia Encephalopathy appears metabolic improved Leukocytosis was on steroids Anemia that is post blood transfusion A. fib with RVR CHF Renal insufficiency Rheumatoid arthritis Depression History of breast cancer Hypertension Dysphagia Plan Plan of Care Change Zosyn to p.o. Augmentin Maintain PIV Follow-up repeat blood cultures Sputum cultures pending Maintain aspiration precaution PT and OT as tolerated d/w MARV Puente MD Mar 07, 2021 08:30
--- NOTE | 2021-03-07 09:36 | PDOC ---
SURGICAL PROGRESS NOTE DATE: 03/07/21 TIME: 09:35 Subjective tolerating diet, speech eval noted, no restrictions now Vital Signs Vital Signs Date Time Temp Pulse Resp B/P (MAP) Pulse Ox O2 Delivery O2 Flow Rate FiO2 03/07/21 07:55 98.4 88 18 180/76 (110) 99 Nasal Cannula 2.0 98.4 I&O Intake and Output 03/07/21 06:59 Intake Total 280 ml Output Total 1090 ml Balance -810 ml Intake Oral 280 ml Output Urine Total 1050 ml Drainage Total 40 ml # Bowel Movements 1 General: Alert, Cooperative Abdomen: Soft, Other (incision intact, RLQ drain removed ) Labs Laboratory Tests Test 03/05/21 12:33 03/05/21 16:07 03/05/21 21:25 03/06/21 07:37 Glucose (Fingerstick) 136 mg/dL (70-99) 149 mg/dL (70-99) 108 mg/dL (70-99) 107 mg/dL (70-99) Test 03/06/21 09:55 03/06/21 12:00 03/06/21 20:13 03/07/21 03:15 White Blood Count 5.6 x10^3/uL (4.0-11.0) 4.6 x10^3/uL (4.0-11.0) Red Blood Count 2.92 x10^6/uL (3.50-5.40) 2.86 x10^6/uL (3.50-5.40) Hemoglobin 8.9 g/dL (12.0-15.5) 8.8 g/dL (12.0-15.5) Hematocrit 27.1 % (36.0-47.0) 26.6 % (36.0-47.0) Mean Corpuscular Volume 93 fL (79-100) 93 fL (79-100) Mean Corpuscular Hemoglobin 31 pg (25-35) 31 pg (25-35) Mean Corpuscular Hemoglobin Concent 33 g/dL (31-37) 33 g/dL (31-37) Red Cell Distribution Width 16.8 % (11.5-14.5) 17.5 % (11.5-14.5) Platelet Count 155 x10^3/uL (140-400) 146 x10^3/uL (140-400) Neutrophils (%) (Auto) 88 % (31-73) 73 % (31-73) Lymphocytes (%) (Auto) 5 % (24-48) 16 % (24-48) Monocytes (%) (Auto) 5 % (0-9) 8 % (0-9) Eosinophils (%) (Auto) 2 % (0-3) 3 % (0-3) Basophils (%) (Auto) 0 % (0-3) 1 % (0-3) Neutrophils # (Auto) 4.9 x10^3/uL (1.8-7.7) 3.4 x10^3/uL (1.8-7.7) Lymphocytes # (Auto) 0.3 x10^3/uL (1.0-4.8) 0.7 x10^3/uL (1.0-4.8) Monocytes # (Auto) 0.3 x10^3/uL (0.0-1.1) 0.4 x10^3/uL (0.0-1.1) Eosinophils # (Auto) 0.1 x10^3/uL (0.0-0.7) 0.1 x10^3/uL (0.0-0.7) Basophils # (Auto) 0.0 x10^3/uL (0.0-0.2) 0.0 x10^3/uL (0.0-0.2) Segmented Neutrophils % 89 % (35-66) Band Neutrophils % 4 % (0-9) Lymphocytes % 3 % (24-48) Monocytes % 3 % (0-10) Eosinophils % 1 % (0-5) Platelet Estimate Adequate (ADEQUATE) Sodium Level 141 mmol/L (136-145) 140 mmol/L (136-145) Potassium Level 4.1 mmol/L (3.5-5.1) 3.6 mmol/L (3.5-5.1) Chloride Level 107 mmol/L (98-107) 107 mmol/L (98-107) Carbon Dioxide Level 25 mmol/L (21-32) 26 mmol/L (21-32) Anion Gap 9 (6-14) 7 (6-14) Blood Urea Nitrogen 16 mg/dL (7-20) 14 mg/dL (7-20) Creatinine 0.6 mg/dL (0.6-1.0) 0.5 mg/dL (0.6-1.0) Estimated GFR (Cockcroft-Gault) 96.9 119.6 Glucose Level 119 mg/dL (70-99) 73 mg/dL (70-99) Calcium Level 7.8 mg/dL (8.5-10.1) 7.8 mg/dL (8.5-10.1) Glucose (Fingerstick) 126 mg/dL (70-99) 111 mg/dL (70-99) Test 03/07/21 08:04 Glucose (Fingerstick) 86 mg/dL (70-99) Laboratory Tests Test 03/06/21 09:55 03/06/21 12:00 03/06/21 20:13 03/07/21 03:15 White Blood Count 5.6 x10^3/uL (4.0-11.0) 4.6 x10^3/uL (4.0-11.0) Red Blood Count 2.92 x10^6/uL (3.50-5.40) 2.86 x10^6/uL (3.50-5.40) Hemoglobin 8.9 g/dL (12.0-15.5) 8.8 g/dL (12.0-15.5) Hematocrit 27.1 % (36.0-47.0) 26.6 % (36.0-47.0) Mean Corpuscular Volume 93 fL (79-100) 93 fL (79-100) Mean Corpuscular Hemoglobin 31 pg (25-35) 31 pg (25-35) Mean Corpuscular Hemoglobin Concent 33 g/dL (31-37) 33 g/dL (31-37) Red Cell Distribution Width 16.8 % (11.5-14.5) 17.5 % (11.5-14.5) Platelet Count 155 x10^3/uL (140-400) 146 x10^3/uL (140-400) Neutrophils (%) (Auto) 88 % (31-73) 73 % (31-73) Lymphocytes (%) (Auto) 5 % (24-48) 16 % (24-48) Monocytes (%) (Auto) 5 % (0-9) 8 % (0-9) Eosinophils (%) (Auto) 2 % (0-3) 3 % (0-3) Basophils (%) (Auto) 0 % (0-3) 1 % (0-3) Neutrophils # (Auto) 4.9 x10^3/uL (1.8-7.7) 3.4 x10^3/uL (1.8-7.7) Lymphocytes # (Auto) 0.3 x10^3/uL (1.0-4.8) 0.7 x10^3/uL (1.0-4.8) Monocytes # (Auto) 0.3 x10^3/uL (0.0-1.1) 0.4 x10^3/uL (0.0-1.1) Eosinophils # (Auto) 0.1 x10^3/uL (0.0-0.7) 0.1 x10^3/uL (0.0-0.7) Basophils # (Auto) 0.0 x10^3/uL (0.0-0.2) 0.0 x10^3/uL (0.0-0.2) Segmented Neutrophils % 89 % (35-66) Band Neutrophils % 4 % (0-9) Lymphocytes % 3 % (24-48) Monocytes % 3 % (0-10) Eosinophils % 1 % (0-5) Platelet Estimate Adequate (ADEQUATE) Sodium Level 141 mmol/L (136-145) 140 mmol/L (136-145) Potassium Level 4.1 mmol/L (3.5-5.1) 3.6 mmol/L (3.5-5.1) Chloride Level 107 mmol/L (98-107) 107 mmol/L (98-107) Carbon Dioxide Level 25 mmol/L (21-32) 26 mmol/L (21-32) Anion Gap 9 (6-14) 7 (6-14) Blood Urea Nitrogen 16 mg/dL (7-20) 14 mg/dL (7-20) Creatinine 0.6 mg/dL (0.6-1.0) 0.5 mg/dL (0.6-1.0) Estimated GFR (Cockcroft-Gault) 96.9 119.6 Glucose Level 119 mg/dL (70-99) 73 mg/dL (70-99) Calcium Level 7.8 mg/dL (8.5-10.1) 7.8 mg/dL (8.5-10.1) Glucose (Fingerstick) 126 mg/dL (70-99) 111 mg/dL (70-99) Test 03/07/21 08:04 Glucose (Fingerstick) 86 mg/dL (70-99) Problem List discharge planned to select today Justicifation of Admission Dx: Justifications for Admission: Justification of Admission Dx: Yes LELA MARIE CELL PREPARER Mar 07, 2021 09:36
[2021-03-07] MEDS: methylPREDNISolone SOD SUCC PF 40 MG/ML VIAL. IV SCH (10:02)
[2021-03-07] MEDS: ASCORBIC ACID 500 MG TABLET PO SCH ×2 (10:02→22:20)
[2021-03-07] MEDS: MULTIVITAMIN with MINERAL TABLET. PO SCH (10:02)
[2021-03-07] MEDS: LACTOBACILLUS RHAMNOSUS GG 1 CAPSULE. PO SCH ×2 (10:03→22:20)
[2021-03-07] MEDS: AMOXICILLIN/K CLAV 875/125MG TABLET. PO SCH ×2 (10:03→22:20)
[2021-03-07] MEDS: LISINOPRIL 10 MG TABLET PO SCH (10:04)
[2021-03-07] MEDS: NYSTATIN 100,000 UNITS/ML 5 ML ORAL.SUSP. SWSW SCH ×2 (10:04→14:22)
[2021-03-07] MEDS: ASPIRIN ENTERIC COATED 81 MG TABLET.DR. PO SCH (10:04)
[2021-03-07] MEDS: METOPROLOL TART IMMED RELEASE 50 MG TABLET. PO SCH ×2 (10:04→22:20)
--- NOTE | 2021-03-07 11:09 | PDOC ---
CLIFFORD MERLOS BARBERING TEACHER 03/07/21 1109: CARDIO Progress Notes Date and Time Date of Service 03/07/21 Time of Evaluation 1110 Subjective Subjective: No Chest Pain, No shortness of breath, No Palpitations Vitals Vitals Vital Signs Date Time Temp Pulse Resp B/P (MAP) Pulse Ox O2 Delivery O2 Flow Rate FiO2 03/07/21 10:04 88 180/76 03/07/21 07:55 98.4 18 99 Nasal Cannula 2.0 98.4 Weight Weight [ ] Input and Output Intake and Output Intake and Output 03/07/21 07:00 Intake Total 280 ml Output Total 1090 ml Balance -810 ml Intake Oral 280 ml Output Urine Total 1050 ml Drainage Total 40 ml # Bowel Movements 1 Laboratory Labs Laboratory Tests Test 03/06/21 12:00 03/06/21 20:13 03/07/21 03:15 03/07/21 08:04 Glucose (Fingerstick) 126 mg/dL (70-99) 111 mg/dL (70-99) 86 mg/dL (70-99) White Blood Count 4.6 x10^3/uL (4.0-11.0) Red Blood Count 2.86 x10^6/uL (3.50-5.40) Hemoglobin 8.8 g/dL (12.0-15.5) Hematocrit 26.6 % (36.0-47.0) Mean Corpuscular Volume 93 fL (79-100) Mean Corpuscular Hemoglobin 31 pg (25-35) Mean Corpuscular Hemoglobin Concent 33 g/dL (31-37) Red Cell Distribution Width 17.5 % (11.5-14.5) Platelet Count 146 x10^3/uL (140-400) Neutrophils (%) (Auto) 73 % (31-73) Lymphocytes (%) (Auto) 16 % (24-48) Monocytes (%) (Auto) 8 % (0-9) Eosinophils (%) (Auto) 3 % (0-3) Basophils (%) (Auto) 1 % (0-3) Neutrophils # (Auto) 3.4 x10^3/uL (1.8-7.7) Lymphocytes # (Auto) 0.7 x10^3/uL (1.0-4.8) Monocytes # (Auto) 0.4 x10^3/uL (0.0-1.1) Eosinophils # (Auto) 0.1 x10^3/uL (0.0-0.7) Basophils # (Auto) 0.0 x10^3/uL (0.0-0.2) Sodium Level 140 mmol/L (136-145) Potassium Level 3.6 mmol/L (3.5-5.1) Chloride Level 107 mmol/L (98-107) Carbon Dioxide Level 26 mmol/L (21-32) Anion Gap 7 (6-14) Blood Urea Nitrogen 14 mg/dL (7-20) Creatinine 0.5 mg/dL (0.6-1.0) Estimated GFR (Cockcroft-Gault) 119.6 Glucose Level 73 mg/dL (70-99) Calcium Level 7.8 mg/dL (8.5-10.1) Microbiology Micro Microbiology 03/01/21 Blood Culture - Final, Complete NO GROWTH AFTER 5 DAYS Physical Exam HEENT: Neck Supple W Full Motion Chest: Symmetric LUNGS: Other (diminished bases) Heart: RRR (SR) Abdomen: Other (obese) Extremities: No Edema Neurology: alert, oriented, follow commands Assessment Assessment 1. S/p ventricular hernia repair 02/13. 2. Post-op AFIB/flutter with RVR; maintaining SR. She is presently a poor AC candidate. 3. Acute respiratory failure with AECOPD, CHF. improved 4. Acute on chronic diastolic CHF; echo with preserved LV systolic function, appears compensated 5. Hypertensive urgency: mildly elevated 6. Anemia; s/p transfusion. hgb stable at 8.9 7. H/o breast CA s/p radiation 8. Hyperkalemia; resolved 9. Encephalopathy: resolved Recommendations Continue metoprolol for rate control Eliquis held secondary to thrombocytopenia, anemia. ASA therapy Consider outpatient referral for left atrial appendage closure Continue post-op management per surgical team Supportive care Justicifation of Admission Dx: Justifications for Admission: Justification of Admission Dx: Yes ALICE LOVE MD 03/07/212043: CARDIO Progress Notes Assessment Assessment Patient seen and examined. Agree with STEEL POST INSTALLER's assessment and plan. Post op AF maintaining SR. She is poor candidate for anticoagulation Ac on chr diastolic HF better compensated Plan outpatient referral for LAAO Continue post op care per CLIFFORD MERLOS APRN Mar 07, 2021 11:09 ALICE LOVE MD Mar 07, 2021 20:44
[2021-03-07 11:10] VITALS: BP 181/77
[2021-03-07] MEDS ORDERED: LIDO:MAALOX 1:1 20 ML SINGLE DOSE. PO PRN (11:45)
--- NOTE | 2021-03-07 12:15 | PDOC ---
[employer] PROGRESS NOTE Date of Service DOS: DATE: 03/07/21 TIME: 12:13 Chief Complaint Chief Complaint A/P: Abdominal pain S/p ventricular hernia repair 02/13 Post-op AFIB/flutter with RVR - SR with PACs. on lovenox ppx dosing and IV metoprolol Acute respiratory failure - likely secondary to acute COPD and acute diastolic CHF worsened by Afib as above Acute diastolic CHF - cardiology following, Echo with no reduction in EF Hypertensive urgency - seems to be due to pain Anemia - hgb drift to 8.2 H/o breast CA s/p radiation Hyperkalemia - resolved Encephalopathy - remains lethargic Chronic obstructive pulmonary disease, unknown FEV1 Hypernatremia -nephrology following Possible aspiration pneumonia versus fluid overload-start Dapto Zosyn for broad- spectrum coverage. Line may need to be removed if blood cultures positive. ID reconsulted. Continue as needed IV Lasix History of Present Illness History of Present Illness Ms Dyson is a 75yo female w/ PMHx rheumatoid arthritis, depression, hypertension, breast cancer and prior colectomy who was admitted for a large ventral hernia repair which she underwent on February 13. Had done really well after surgery initially she was actually planning to start trialing liquids, but was transferred to ICU for concern for sepsis and new onset A. fib with RVR requiring a Cardizem drip, cardiology, Infectious Disease and pulmonary were consulted. Patient started on broad-spectrum antibiotics. Pulmonary following. 02/16: ICU today. Her condition has significantly improved since last night. She is awake alert and oriented able to answer questions says pain is under control. Blood pressure holding steady. Remains on Cardizem drip. Continue antibiotics today. Requesting to drink if she can, will defer this decision to surgery. 02/17: She is complaining about some shortness of breath but is feeling comfortable. We will try 1 dose of Lasix today based upon chest x-ray. 02/18: Evaluated at bedside. Patient resting in bed. Appears to be in normal sinus rhythm. No major clinical changes otherwise. 02/19: Evaluated at bedside. Patient resting in bed pursed lip breathing D/W XAVIER/ METAL RIVETER, ABG pending d/w in room k 5.8 on tpn pharmacy to adjust k in tpn 02/20: Evaluated at bedside. D/W XAVIER/ METAL RIVETER, ABG pending d/w in room k 5.8 on tpn pharmacy to adjust k in tpn 02/21: Transferred from ICU overnight. Still very confused. Family says she said hello. Moving all 4 extremities. Afebrile. NA 156. WBC 19.2, Hb 8.1. D/w family bedside. 02/22: NA 158. Afebrile. Asking for coffee. Still requiring 3L NCO2. D/w surgery given her deconditioning and need for IV nutrition she would need likely referral to LTACH. 02/23: NA 162. Afebrile. More alert. Asking for food. No BM. Very weak, d/w beside to consider LTACH. Chest radiograph with PICC crossing midline. Diet advanced 02/24: Afebrile overnight. Feeling a little worse. She is taking p.o. had some juice had a bowel movement. Chest radiograph revealed PICC has become malpositioned. IV on hold. Afebrile. NA 137. Feels a little hot. Has been upset about PICC and making sure she is getting her medications. Reassured she can appropriately medicated by mouth. She is asking for some cold to drink. Noted she still on thickened liquids 02/26 Patient evaluated at bedside. Still frustrated about PICC line, imaging shows it is in the left subclavian. From medical standpoint patient with hypernatremia of 162 today. Still mentating well. Nephrology following. Defer rest to primary surgical team 02/27 Patient evaluated at bedside, she does remain very weak still. 6 min walk ordered but question if she will be able to complete. Labs from today pending still. 02/28 Patient evaluated and examined at bedside. Pretty lethargic this morning informed by bedside nurse she had a hemoglobin below 7 along with an elevated temperature to 100. Patient also was made n.p.o. today after speech evaluation concerned she is aspirating. Contacted surgical team who graciously evaluated the patient. Order chest x-ray patient does appear to have some fluid overload, discussed the case with Dr. Caro who recommended trying a dose of IV Lasix given her fluid overload on exam. Agreed with continuing antibiotics. We will continue to closely monitor. If she should worsen consider ICU transfer. 03/01 Patient evaluated and examined at bedside. She definitely does appear better but still relatively lethargic. Giving another dose of Lasix this morning as she is clinically fluid overloaded still. Remains n.p.o. per speech. Given leukocytosis and fevers will reconsult infectious disease. 03/02 Patient evaluated examined at bedside. She reports being a little bit better but is still has a pretty fragile respiratory status. Continue as needed diuresing along with antibiotics. Cardiology and infectious disease following. Continue to Dapto Zosyn blood cultures no growth today. Diuresis needed. Patient remains very very weak and family still adamant about bringing her home after discharge. Given her current status this really would not be safe. 03/03 Patient evaluated and examined at bedside. Family finally agreeable to SNF placement. Patient improving with Dapto and Zosyn continue this. Remains n.p.o. continue with TPN. Speech eval's per speech therapy PT OT likely discharge early next week 03/04 Patient evaluated and examined at bedside. She definitely has improved says her breathing is much better. Okay to stop Dapto continue Zosyn. Blood cultures no growth to date. Hopeful for another speech eval sometime this week continue TPN in the meantime. 03/05: Low-grade fever this morning (T-max 100.2 F), suspect due to basilar atelectasis her history of aspiration pneumonia. Patient states she feels better, and denies any significant abdominal pain. Work with ST and recommended dysphagia diet. Encouraged working with PT/OT as much as tolerable. Repeat blood cultures with no growth to date. 03/06: Afebrile, still breathing on 2 L nasal cannula. Abdominal pain remains well controlled. Final blood cultures with no growth. Continue IV antibiot ics, per ID. Tolerating dysphagia diet. Discussed with social group worker, apparently accepted [facility], and discharge could happen today or tomorrow. Discussed with speech therapy, will try to complete video swallow study today prior to discharge to [facility] pending insurance authorization. 03/07: Patient still breathing 2 L nasal cannula. She reports some slight abdominal pain and difficulty tolerating her diet this morning. She reports pain with liquids that has been present for the past several days; this also is a surprise to patient's . Video swallow study yesterday showed no laryngeal penetration or aspiration. Will resume TPN. Vitals/I&O Vitals/I&O: Vital Signs Date Time Temp Pulse Resp B/P (MAP) Pulse Ox O2 Delivery O2 Flow Rate FiO2 03/07/21 11:34 Nasal Cannula 2.0 03/07/21 11:10 79 18 181/77 (111) 98 03/07/21 07:55 98.4 98.4 I & O 03/06/21 03/06/21 03/07/21 15:00 23:00 07:00 Intake Total 180 ml 100 ml 0 ml Output Total 520 ml 570 ml Balance 180 ml -420 ml -570 ml Physical Exam Physical Exam: GENERAL: awake HEENT: Normocephalic, atraumatic. Anicteric. Dry mouth NECK: Supple. No JVD. LUNGS: Decreased breath sound at bases no wheezing HEART: Irregularly irregular no murmurs appreciated ABDOMEN: Obese , mildly distended Hypoactive bowel sounds [address] EXTREMITIES mild edema present, no cyanosis MUSCULOSKELETAL: No joint swelling. No decrease in range of motion. CENTRAL NERVOUS SYSTEM: Sleepy, arousable PSYCHIATRIC: Cooperative, calm PICC line removed General: Alert, Cooperative Heart: Regular rate, Normal S1, Normal S2 Lungs: Clear Abdomen: Soft, Other (incision intact, RLQ drain removed ) Extremities: No edema, Normal pulses Skin: No significant lesion Labs Labs: Laboratory Tests Test 03/06/21 20:13 03/07/21 03:15 03/07/21 08:04 03/07/21 11:54 Glucose (Fingerstick) 111 mg/dL (70-99) 86 mg/dL (70-99) 88 mg/dL (70-99) White Blood Count 4.6 x10^3/uL (4.0-11.0) Red Blood Count 2.86 x10^6/uL (3.50-5.40) Hemoglobin 8.8 g/dL (12.0-15.5) Hematocrit 26.6 % (36.0-47.0) Mean Corpuscular Volume 93 fL (79-100) Mean Corpuscular Hemoglobin 31 pg (25-35) Mean Corpuscular Hemoglobin Concent 33 g/dL (31-37) Red Cell Distribution Width 17.5 % (11.5-14.5) Platelet Count 146 x10^3/uL (140-400) Neutrophils (%) (Auto) 73 % (31-73) Lymphocytes (%) (Auto) 16 % (24-48) Monocytes (%) (Auto) 8 % (0-9) Eosinophils (%) (Auto) 3 % (0-3) Basophils (%) (Auto) 1 % (0-3) Neutrophils # (Auto) 3.4 x10^3/uL (1.8-7.7) Lymphocytes # (Auto) 0.7 x10^3/uL (1.0-4.8) Monocytes # (Auto) 0.4 x10^3/uL (0.0-1.1) Eosinophils # (Auto) 0.1 x10^3/uL (0.0-0.7) Basophils # (Auto) 0.0 x10^3/uL (0.0-0.2) Sodium Level 140 mmol/L (136-145) Potassium Level 3.6 mmol/L (3.5-5.1) Chloride Level 107 mmol/L (98-107) Carbon Dioxide Level 26 mmol/L (21-32) Anion Gap 7 (6-14) Blood Urea Nitrogen 14 mg/dL (7-20) Creatinine 0.5 mg/dL (0.6-1.0) Estimated GFR (Cockcroft-Gault) 119.6 Glucose Level 73 mg/dL (70-99) Calcium Level 7.8 mg/dL (8.5-10.1) Comment Review of Relevant I have reviewed the following items keely (where applicable) has been applied. Medications: Current Medications Medications (Trade) Dose Ordered Sig/Isael Route PRN Reason Start Time Stop Time Status Last Admin Dose Admin Amoxicillin/ Clavulanate Potassium (Augmentin 875/ 125mg) 1 tab BID PO 03/06/21 21:00 03/07/21 10:03 Barium Sulfate (Varibar Thin Liquid Apple) 148 gm 1X ONCE PO 03/06/21 13:30 03/06/21 13:34 DC 03/06/21 14:25 Aspirin (Ecotrin) 81 mg DAILYWBKFT PO 03/07/21 08:00 03/07/21 10:04 Lisinopril (Prinivil) 20 mg DAILY PO 03/07/21 09:00 03/07/21 10:04 Lisinopril (Prinivil) 10 mg 1X ONCE PO 03/06/21 15:15 03/06/21 15:16 DC 03/06/21 18:19 Ascorbic Acid (Vitamin C) 500 mg BID PO 03/06/21 21:00 03/07/21 10:02 Multivitamins (Thera M Plus) 1 tab DAILY PO 03/07/21 09:00 03/07/21 10:02 Justifications for Admission Other Justification IVANA SPRAGUE MD Mar 07, 2021 12:15
--- NOTE | 2021-03-07 12:42 | NUR ---
Wound Care: Patient wounds have all now resolved. There are no open wounds upon complete head to toe assessment. Skin prep and foam dressings applied to bilateral heels for protection as well as heel medix boots. Change foams again on Friday03/11/21 to ensure they have remained healed. Patient turned to left using wedge. Patient c/o of upset stomach unable to eat lunch at this time. Bed lowered and call light in reach. Wound care will follow up on 03/14/21 for reassessment.
[2021-03-07] MEDS: FAMOTIDINE 20 MG TABLET. PO SCH ×2 (14:21→22:20)
[2021-03-07 14:41] VITALS: BP 167/70
--- NOTE | 2021-03-07 16:12 | NUR ---
SS following up with discharge planning. SS reviewed pt chart and discussed with pt RN. Pt is currently requiring oxygen at two liters nasal canula. COVID19 negative. Pt on Clinimix and IV Solu-Medrol. Drain in place. Pt accepted at [facility], ; fax [phone]. No bed available today. Clinical updates phoned and faxed to [facility]. SS will continue to follow for discharge planning.
[2021-03-07] MEDS: ENOXAPARIN 40 MG/0.4 ML SYRINGE. SQ SCH (18:01)
[2021-03-07 19:40] VITALS: BP 162/63
--- NOTE | 2021-03-07 19:40 | NUR ---
Pt in bed assessment completed vss poc explained pt denied pain at this time call light in reach pt repositioned will resume care and continue to monitor pt.Call light in reach.
[2021-03-07] MEDS: INSULIN GLARGINE SYRINGE. SQ SCH (22:21)
[2021-03-07 23:11] VITALS: BP 161/65
[2021-03-08] MEDS: AA 4.25 %/CALCIUM/LYTES/D5W 1,000 ML IV SCH ×2 (02:30→12:38)
[2021-03-08 03:00] VITALS: BP 152/65
[2021-03-08 04:52] LABS: BASO % 1 % (0-3); EOS # 0.1 x10^3/uL (0.0-0.7); EOS % 2 % (0-3); HEMATOCRIT 26.1 % (36.0-47.0); HEMOGLOBIN 8.6 g/dL (12.0-15.5); LYMPH # 0.5 x10^3/uL (1.0-4.8); LYMPH % 12 % (24-48); MEAN CORPUSCULAR HEMOGLOBIN 31 pg (25-35); MEAN CORPUSCULAR HGB CONC 33 g/dL (31-37); MEAN CORPUSCULAR VOLUME 93 fL (79-100); MONO # 0.3 x10^3/uL (0.0-1.1); MONO % 8 % (0-9); NEUT # 3.4 x10^3/uL (1.8-7.7); NEUT % 78 % (31-73); PLATELET COUNT 137 x10^3/uL (140-400); RED BLOOD COUNT 2.81 x10^6/uL (3.50-5.40); RED CELL DISTRIBUTION WIDTH 17.3 % (11.5-14.5); WHITE BLOOD COUNT 4.4 x10^3/uL (4.0-11.0)
[2021-03-08 05:15] LABS: CALCIUM 7.6 mg/dL (8.5-10.1); CREATININE 0.5 mg/dL (0.6-1.0); GFR 119.6; POTASSIUM 3.5 mmol/L (3.5-5.1)
[2021-03-08] MEDS: NITROGLYCERIN OINT 1 GM PACKET. TP SCH ×3 (05:57→17:34)
[2021-03-08 07:00] VITALS: BP 162/72
[2021-03-08] MEDS: BUDESONIDE 0.5 MG/2 ML NEBU. NEB SCH ×2 (07:26→21:05)
[2021-03-08] MEDS: IPRATROPIUM BROMIDE 0.5 MG/2.5 ML NEBU. NEB SCH ×4 (07:26→21:06)
[2021-03-08] MEDS: INSULIN LISPRO 300 UNITS/3 ML VIAL. SQ SCH ×4 (07:30→21:24)
--- NOTE | 2021-03-08 08:57 | PDOC ---
[employer] PROGRESS NOTE Date of Service DOS: DATE: 03/08/21 TIME: 08:47 Chief Complaint Chief Complaint A/P: Abdominal pain S/p ventricular hernia repair 02/13 Post-op AFIB/flutter with RVR - SR with PACs. on lovenox ppx dosing and IV metoprolol Acute respiratory failure - likely secondary to acute COPD and acute diastolic CHF worsened by Afib as above Acute diastolic CHF - cardiology following, Echo with no reduction in EF Hypertensive urgency - seems to be due to pain Anemia - hgb drift to 8.2 H/o breast CA s/p radiation Hyperkalemia - resolved Encephalopathy - remains lethargic Chronic obstructive pulmonary disease, unknown FEV1 Hypernatremia -nephrology following Possible aspiration pneumonia versus fluid overload-start Dapto Zosyn for broad- spectrum coverage. Line may need to be removed if blood cultures positive. ID reconsulted. Continue as needed IV Lasix History of Present Illness History of Present Illness Ms Dyson is a 75yo female w/ PMHx rheumatoid arthritis, depression, hypertension, breast cancer and prior colectomy who was admitted for a large ventral hernia repair which she underwent on February 13. Had done really well after surgery initially she was actually planning to start trialing liquids, but was transferred to ICU for concern for sepsis and new onset A. fib with RVR requiring a Cardizem drip, cardiology, Infectious Disease and pulmonary were consulted. Patient started on broad-spectrum antibiotics. Pulmonary following. 02/16: ICU today. Her condition has significantly improved since last night. She is awake alert and oriented able to answer questions says pain is under control. Blood pressure holding steady. Remains on Cardizem drip. Continue antibiotics today. Requesting to drink if she can, will defer this decision to surgery. 02/17: She is complaining about some shortness of breath but is feeling comfortable. We will try 1 dose of Lasix today based upon chest x-ray. 02/18: Evaluated at bedside. Patient resting in bed. Appears to be in normal sinus rhythm. No major clinical changes otherwise. 02/19: Evaluated at bedside. Patient resting in bed pursed lip breathing D/W XAVIER/ SUBSTATION OPERATOR HELPER GENERATION, ABG pending d/w in room k 5.8 on tpn pharmacy to adjust k in tpn 02/20: Evaluated at bedside. D/W XAVIER/ SUBSTATION OPERATOR HELPER GENERATION, ABG pending d/w in room k 5.8 on tpn pharmacy to adjust k in tpn 02/21: Transferred from ICU overnight. Still very confused. Family says she said hello. Moving all 4 extremities. Afebrile. NA 156. WBC 19.2, Hb 8.1. D/w family bedside. 02/22: NA 158. Afebrile. Asking for coffee. Still requiring 3L NCO2. D/w surgery given her deconditioning and need for IV nutrition she would need likely referral to LTACH. 02/23: NA 162. Afebrile. More alert. Asking for food. No BM. Very weak, d/w beside to consider LTACH. Chest radiograph with PICC crossing midline. Diet advanced 02/24: Afebrile overnight. Feeling a little worse. She is taking p.o. had some juice had a bowel movement. Chest radiograph revealed PICC has become malpositioned. IV on hold. Afebrile. NA 137. Feels a little hot. Has been upset about PICC and making sure she is getting her medications. Reassured she can appropriately medicated by mouth. She is asking for some cold to drink. Noted she still on thickened liquids 02/26 Patient evaluated at bedside. Still frustrated about PICC line, imaging shows it is in the left subclavian. From medical standpoint patient with hypernatremia of 162 today. Still mentating well. Nephrology following. Defer rest to primary surgical team 02/27 Patient evaluated at bedside, she does remain very weak still. 6 min walk ordered but question if she will be able to complete. Labs from today pending still. 02/28 Patient evaluated and examined at bedside. Pretty lethargic this morning informed by bedside nurse she had a hemoglobin below 7 along with an elevated temperature to 100. Patient also was made n.p.o. today after speech evaluation concerned she is aspirating. Contacted surgical team who graciously evaluated the patient. Order chest x-ray patient does appear to have some fluid overload, discussed the case with Dr. Caro who recommended trying a dose of IV Lasix given her fluid overload on exam. Agreed with continuing antibiotics. We will continue to closely monitor. If she should worsen consider ICU transfer. 03/01 Patient evaluated and examined at bedside. She definitely does appear better but still relatively lethargic. Giving another dose of Lasix this morning as she is clinically fluid overloaded still. Remains n.p.o. per speech. Given leukocytosis and fevers will reconsult infectious disease. 03/02 Patient evaluated examined at bedside. She reports being a little bit better but is still has a pretty fragile respiratory status. Continue as needed diuresing along with antibiotics. Cardiology and infectious disease following. Continue to Dapto Zosyn blood cultures no growth today. Diuresis needed. Patient remains very very weak and family still adamant about bringing her home after discharge. Given her current status this really would not be safe. 03/03 Patient evaluated and examined at bedside. Family finally agreeable to SNF placement. Patient improving with Dapto and Zosyn continue this. Remains n.p.o. continue with TPN. Speech eval's per speech therapy PT OT likely discharge early next week 03/04 Patient evaluated and examined at bedside. She definitely has improved says her breathing is much better. Okay to stop Dapto continue Zosyn. Blood cultures no growth to date. Hopeful for another speech eval sometime this week continue TPN in the meantime. 03/05: Low-grade fever this morning (T-max 100.2 F), suspect due to basilar atelectasis her history of aspiration pneumonia. Patient states she feels better, and denies any significant abdominal pain. Work with ST and recommended dysphagia diet. Encouraged working with PT/OT as much as tolerable. Repeat blood cultures with no growth to date. 03/06: Afebrile, still breathing on 2 L nasal cannula. Abdominal pain remains well controlled. Final blood cultures with no growth. Continue IV antibiot ics, per ID. Tolerating dysphagia diet. Discussed with social media job titles, apparently accepted at [facility], and discharge could happen today or tomorrow. Discussed with speech therapy, will try to complete video swallow study today prior to discharge to [facility] pending insurance authorization. 03/07: Patient still breathing 2 L nasal cannula. She reports some slight abdominal pain and difficulty tolerating her diet this morning. She reports pain with liquids that has been present for the past several days; this also is a surprise to patient's . Video swallow study yesterday showed no laryngeal penetration or aspiration. Will resume TPN. 03/08: Patient with complaint of some odynophagia and nausea. Afebrile, on 2 L nasal cannula. Clinimix was resumed due to concerns of inadequate nutrition. Breathing is improved, so we will discontinue Solu-Medrol and placed on oral pre dnisone with taper. Accepted at [facility], awaiting bed to open. Vitals/I&O Vitals/I&O: Vital Signs Date Time Temp Pulse Resp B/P (MAP) Pulse Ox O2 Delivery O2 Flow Rate FiO2 03/08/21 07:23 99 Nasal Cannula 2.0 03/08/21 05:57 97 152/65 03/08/21 03:00 98.7 18 98.7 I & O 03/07/21 03/07/21 03/08/21 15:00 23:00 07:00 Intake Total 300 ml 120 ml 0 ml Output Total 700 ml 370 ml Balance 300 ml -580 ml -370 ml Physical Exam Physical Exam: GENERAL: awake HEENT: Normocephalic, atraumatic. Anicteric. Dry mouth NECK: Supple. No JVD. LUNGS: Decreased breath sound at bases no wheezing HEART: Irregularly irregular no murmurs appreciated ABDOMEN: Obese , mildly distended Hypoactive bowel sounds [address] EXTREMITIES mild edema present, no cyanosis MUSCULOSKELETAL: No joint swelling. No decrease in range of motion. CENTRAL NERVOUS SYSTEM: Sleepy, arousable PSYCHIATRIC: Cooperative, calm PICC line removed General: Alert, Cooperative Heart: Regular rate, Normal S1, Normal S2 Lungs: Clear Abdomen: Soft, Other (incision intact, RLQ drain removed ) Extremities: No edema, Normal pulses Skin: No significant lesion Labs Labs: Laboratory Tests Test 03/07/21 11:54 03/07/21 16:32 03/07/21 21:21 03/07/21 21:55 Glucose (Fingerstick) 88 mg/dL (70-99) 379 mg/dL (70-99) 44 mg/dL (70-99) 124 mg/dL (70-99) Test 03/08/21 03:35 03/08/21 07:27 White Blood Count 4.4 x10^3/uL (4.0-11.0) Red Blood Count 2.81 x10^6/uL (3.50-5.40) Hemoglobin 8.6 g/dL (12.0-15.5) Hematocrit 26.1 % (36.0-47.0) Mean Corpuscular Volume 93 fL (79-100) Mean Corpuscular Hemoglobin 31 pg (25-35) Mean Corpuscular Hemoglobin Concent 33 g/dL (31-37) Red Cell Distribution Width 17.3 % (11.5-14.5) Platelet Count 137 x10^3/uL (140-400) Neutrophils (%) (Auto) 78 % (31-73) Lymphocytes (%) (Auto) 12 % (24-48) Monocytes (%) (Auto) 8 % (0-9) Eosinophils (%) (Auto) 2 % (0-3) Basophils (%) (Auto) 1 % (0-3) Neutrophils # (Auto) 3.4 x10^3/uL (1.8-7.7) Lymphocytes # (Auto) 0.5 x10^3/uL (1.0-4.8) Monocytes # (Auto) 0.3 x10^3/uL (0.0-1.1) Eosinophils # (Auto) 0.1 x10^3/uL (0.0-0.7) Basophils # (Auto) 0.0 x10^3/uL (0.0-0.2) Sodium Level 138 mmol/L (136-145) Potassium Level 3.5 mmol/L (3.5-5.1) Chloride Level 104 mmol/L (98-107) Carbon Dioxide Level 29 mmol/L (21-32) Anion Gap 5 (6-14) Blood Urea Nitrogen 13 mg/dL (7-20) Creatinine 0.5 mg/dL (0.6-1.0) Estimated GFR (Cockcroft-Gault) 119.6 Glucose Level 87 mg/dL (70-99) Calcium Level 7.6 mg/dL (8.5-10.1) Glucose (Fingerstick) 100 mg/dL (70-99) Comment Review of Relevant I have reviewed the following items keely (where applicable) has been applied. Medications: Current Medications Medications (Trade) Dose Ordered Sig/Isael Route PRN Reason Start Time Stop Time Status Last Admin Dose Admin Lisinopril (Prinivil) 20 mg DAILY PO 03/07/21 09:00 03/07/21 10:04 Multivitamins (Thera M Plus) 1 tab DAILY PO 03/07/21 09:00 03/07/21 10:02 Famotidine (Pepcid) 20 mg BID PO 03/07/21 12:30 03/07/21 22:20 Justifications for Admission Other Justification IVANA SPRAGEU MD Mar 08, 2021 08:57
[2021-03-08] MEDS: ASPIRIN ENTERIC COATED 81 MG TABLET.DR. PO SCH (09:04)
[2021-03-08] MEDS: ASCORBIC ACID 500 MG TABLET PO SCH ×2 (09:04→21:23)
[2021-03-08] MEDS: METOPROLOL TART IMMED RELEASE 50 MG TABLET. PO SCH ×2 (09:04→21:24)
[2021-03-08] MEDS: LACTOBACILLUS RHAMNOSUS GG 1 CAPSULE. PO SCH ×2 (09:04→21:23)
[2021-03-08] MEDS: MULTIVITAMIN with MINERAL TABLET. PO SCH (09:04)
[2021-03-08] MEDS: AMOXICILLIN/K CLAV 875/125MG TABLET. PO SCH ×2 (09:04→21:23)
[2021-03-08] MEDS: FAMOTIDINE 20 MG TABLET. PO SCH ×2 (09:05→21:23)
[2021-03-08] MEDS: LISINOPRIL 10 MG TABLET PO SCH (09:05)
[2021-03-08] MEDS: methylPREDNISolone SOD SUCC PF 40 MG/ML VIAL. IV SCH (09:05)
--- NOTE | 2021-03-08 09:57 | PDOC ---
SURGICAL PROGRESS NOTE DATE: 03/08/21 TIME: 09:56 Subjective no complaints Vital Signs Vital Signs Date Time Temp Pulse Resp B/P (MAP) Pulse Ox O2 Delivery O2 Flow Rate FiO2 03/08/21 09:05 97 152/65 03/08/21 07:23 99 Nasal Cannula 2.0 03/08/21 07:00 97.0 97.0 03/08/21 03:00 18 I&O Intake and Output 03/08/21 07:00 Intake Total 420 ml Output Total 1070 ml Balance -650 ml Intake Oral 420 ml Output Urine Total 1050 ml Drainage Total 20 ml # Bowel Movements 2 PATIENT HAS A GARCIA: Yes General: Cooperative Abdomen: Soft Labs Laboratory Tests Test 03/06/21 12:00 03/06/21 20:13 03/07/21 03:15 03/07/21 08:04 Glucose (Fingerstick) 126 mg/dL (70-99) 111 mg/dL (70-99) 86 mg/dL (70-99) White Blood Count 4.6 x10^3/uL (4.0-11.0) Red Blood Count 2.86 x10^6/uL (3.50-5.40) Hemoglobin 8.8 g/dL (12.0-15.5) Hematocrit 26.6 % (36.0-47.0) Mean Corpuscular Volume 93 fL (79-100) Mean Corpuscular Hemoglobin 31 pg (25-35) Mean Corpuscular Hemoglobin Concent 33 g/dL (31-37) Red Cell Distribution Width 17.5 % (11.5-14.5) Platelet Count 146 x10^3/uL (140-400) Neutrophils (%) (Auto) 73 % (31-73) Lymphocytes (%) (Auto) 16 % (24-48) Monocytes (%) (Auto) 8 % (0-9) Eosinophils (%) (Auto) 3 % (0-3) Basophils (%) (Auto) 1 % (0-3) Neutrophils # (Auto) 3.4 x10^3/uL (1.8-7.7) Lymphocytes # (Auto) 0.7 x10^3/uL (1.0-4.8) Monocytes # (Auto) 0.4 x10^3/uL (0.0-1.1) Eosinophils # (Auto) 0.1 x10^3/uL (0.0-0.7) Basophils # (Auto) 0.0 x10^3/uL (0.0-0.2) Sodium Level 140 mmol/L (136-145) Potassium Level 3.6 mmol/L (3.5-5.1) Chloride Level 107 mmol/L (98-107) Carbon Dioxide Level 26 mmol/L (21-32) Anion Gap 7 (6-14) Blood Urea Nitrogen 14 mg/dL (7-20) Creatinine 0.5 mg/dL (0.6-1.0) Estimated GFR (Cockcroft-Gault) 119.6 Glucose Level 73 mg/dL (70-99) Calcium Level 7.8 mg/dL (8.5-10.1) Test 03/07/21 11:54 03/07/21 16:32 03/07/21 21:21 03/07/21 21:55 Glucose (Fingerstick) 88 mg/dL (70-99) 379 mg/dL (70-99) 44 mg/dL (70-99) 124 mg/dL (70-99) Test 03/08/21 03:35 03/08/21 07:27 White Blood Count 4.4 x10^3/uL (4.0-11.0) Red Blood Count 2.81 x10^6/uL (3.50-5.40) Hemoglobin 8.6 g/dL (12.0-15.5) Hematocrit 26.1 % (36.0-47.0) Mean Corpuscular Volume 93 fL (79-100) Mean Corpuscular Hemoglobin 31 pg (25-35) Mean Corpuscular Hemoglobin Concent 33 g/dL (31-37) Red Cell Distribution Width 17.3 % (11.5-14.5) Platelet Count 137 x10^3/uL (140-400) Neutrophils (%) (Auto) 78 % (31-73) Lymphocytes (%) (Auto) 12 % (24-48) Monocytes (%) (Auto) 8 % (0-9) Eosinophils (%) (Auto) 2 % (0-3) Basophils (%) (Auto) 1 % (0-3) Neutrophils # (Auto) 3.4 x10^3/uL (1.8-7.7) Lymphocytes # (Auto) 0.5 x10^3/uL (1.0-4.8) Monocytes # (Auto) 0.3 x10^3/uL (0.0-1.1) Eosinophils # (Auto) 0.1 x10^3/uL (0.0-0.7) Basophils # (Auto) 0.0 x10^3/uL (0.0-0.2) Sodium Level 138 mmol/L (136-145) Potassium Level 3.5 mmol/L (3.5-5.1) Chloride Level 104 mmol/L (98-107) Carbon Dioxide Level 29 mmol/L (21-32) Anion Gap 5 (6-14) Blood Urea Nitrogen 13 mg/dL (7-20) Creatinine 0.5 mg/dL (0.6-1.0) Estimated GFR (Cockcroft-Gault) 119.6 Glucose Level 87 mg/dL (70-99) Calcium Level 7.6 mg/dL (8.5-10.1) Glucose (Fingerstick) 100 mg/dL (70-99) Laboratory Tests Test 03/07/21 11:54 03/07/21 16:32 03/07/21 21:21 03/07/21 21:55 Glucose (Fingerstick) 88 mg/dL (70-99) 379 mg/dL (70-99) 44 mg/dL (70-99) 124 mg/dL (70-99) Test 03/08/21 03:35 03/08/21 07:27 White Blood Count 4.4 x10^3/uL (4.0-11.0) Red Blood Count 2.81 x10^6/uL (3.50-5.40) Hemoglobin 8.6 g/dL (12.0-15.5) Hematocrit 26.1 % (36.0-47.0) Mean Corpuscular Volume 93 fL (79-100) Mean Corpuscular Hemoglobin 31 pg (25-35) Mean Corpuscular Hemoglobin Concent 33 g/dL (31-37) Red Cell Distribution Width 17.3 % (11.5-14.5) Platelet Count 137 x10^3/uL (140-400) Neutrophils (%) (Auto) 78 % (31-73) Lymphocytes (%) (Auto) 12 % (24-48) Monocytes (%) (Auto) 8 % (0-9) Eosinophils (%) (Auto) 2 % (0-3) Basophils (%) (Auto) 1 % (0-3) Neutrophils # (Auto) 3.4 x10^3/uL (1.8-7.7) Lymphocytes # (Auto) 0.5 x10^3/uL (1.0-4.8) Monocytes # (Auto) 0.3 x10^3/uL (0.0-1.1) Eosinophils # (Auto) 0.1 x10^3/uL (0.0-0.7) Basophils # (Auto) 0.0 x10^3/uL (0.0-0.2) Sodium Level 138 mmol/L (136-145) Potassium Level 3.5 mmol/L (3.5-5.1) Chloride Level 104 mmol/L (98-107) Carbon Dioxide Level 29 mmol/L (21-32) Anion Gap 5 (6-14) Blood Urea Nitrogen 13 mg/dL (7-20) Creatinine 0.5 mg/dL (0.6-1.0) Estimated GFR (Cockcroft-Gault) 119.6 Glucose Level 87 mg/dL (70-99) Calcium Level 7.6 mg/dL (8.5-10.1) Glucose (Fingerstick) 100 mg/dL (70-99) Assessment/Plan awaiting placement Justicifation of Admission Dx: Justifications for Admission: Justification of Admission Dx: Yes LELA MARIE MANAGER LEGAL Mar 08, 2021 09:57
[2021-03-08 11:00] VITALS: BP 159/70
--- NOTE | 2021-03-08 11:55 | PDOC ---
CLIFFORD MERLOS MANUFACTURING WEAVER 03/08/21 1155: CARDIO Progress Notes Date and Time Date of Service 03/08/21 Time of Evaluation 1200 Subjective Subjective: No Chest Pain, No shortness of breath, No Palpitations, Other (poor appetite ) Vitals Vitals Vital Signs Date Time Temp Pulse Resp B/P (MAP) Pulse Ox O2 Delivery O2 Flow Rate FiO2 03/08/21 11:27 Nasal Cannula 2.0 03/08/21 11:00 100.8 73 16 159/70 (99) 99 100.8 Weight Weight [ ] Input and Output Intake and Output Intake and Output 03/08/21 07:00 Intake Total 420 ml Output Total 1070 ml Balance -650 ml Intake Oral 420 ml Output Urine Total 1050 ml Drainage Total 20 ml # Bowel Movements 2 Laboratory Labs Laboratory Tests Test 03/07/21 16:32 03/07/21 21:21 03/07/21 21:55 03/08/21 03:35 Glucose (Fingerstick) 379 mg/dL (70-99) 44 mg/dL (70-99) 124 mg/dL (70-99) White Blood Count 4.4 x10^3/uL (4.0-11.0) Red Blood Count 2.81 x10^6/uL (3.50-5.40) Hemoglobin 8.6 g/dL (12.0-15.5) Hematocrit 26.1 % (36.0-47.0) Mean Corpuscular Volume 93 fL (79-100) Mean Corpuscular Hemoglobin 31 pg (25-35) Mean Corpuscular Hemoglobin Concent 33 g/dL (31-37) Red Cell Distribution Width 17.3 % (11.5-14.5) Platelet Count 137 x10^3/uL (140-400) Neutrophils (%) (Auto) 78 % (31-73) Lymphocytes (%) (Auto) 12 % (24-48) Monocytes (%) (Auto) 8 % (0-9) Eosinophils (%) (Auto) 2 % (0-3) Basophils (%) (Auto) 1 % (0-3) Neutrophils # (Auto) 3.4 x10^3/uL (1.8-7.7) Lymphocytes # (Auto) 0.5 x10^3/uL (1.0-4.8) Monocytes # (Auto) 0.3 x10^3/uL (0.0-1.1) Eosinophils # (Auto) 0.1 x10^3/uL (0.0-0.7) Basophils # (Auto) 0.0 x10^3/uL (0.0-0.2) Sodium Level 138 mmol/L (136-145) Potassium Level 3.5 mmol/L (3.5-5.1) Chloride Level 104 mmol/L (98-107) Carbon Dioxide Level 29 mmol/L (21-32) Anion Gap 5 (6-14) Blood Urea Nitrogen 13 mg/dL (7-20) Creatinine 0.5 mg/dL (0.6-1.0) Estimated GFR (Cockcroft-Gault) 119.6 Glucose Level 87 mg/dL (70-99) Calcium Level 7.6 mg/dL (8.5-10.1) Test 03/08/21 07:27 Glucose (Fingerstick) 100 mg/dL (70-99) Microbiology Micro Microbiology 03/01/21 Blood Culture - Final, Complete NO GROWTH AFTER 5 DAYS Physical Exam HEENT: Neck Supple W Full Motion Chest: Symmetric LUNGS: Other (diminished bases) Heart: RRR (SR) Abdomen: Other (obese) Extremities: No Edema Neurology: alert, oriented, follow commands Assessment Assessment 1. S/p ventricular hernia repair 02/13. 2. Post-op AFIB/flutter with RVR; maintaining SR. She is presently a poor AC candidate. 3. Acute respiratory failure with AECOPD, CHF. improved 4. Acute on chronic diastolic CHF; echo with preserved LV systolic function, appears compensated 5. Hypertensive urgency: mildly elevated 6. Anemia; s/p transfusion. hgb stable at 8.9 7. H/o breast CA s/p radiation 8. Hyperkalemia; resolved 9. Encephalopathy: resolved Recommendations Continue metoprolol for rate control Eliquis held secondary to thrombocytopenia, anemia. ASA therapy Consider outpatient referral for left atrial appendage closure Continue post-op management per surgical team Supportive care Justicifation of Admission Dx: Justifications for Admission: Justification of Admission Dx: Yes ALICE LOVE MD 03/08/212026: CARDIO Progress Notes Assessment Assessment Patient seen and examined. Agree with DIRECTOR OF FINANCIAL PLANNING's assessment and plan. Post op AF maintaining SR. She is poor candidate for anticoagulation Ac on chr diastolic HF better compensated Plan outpatient referral for LAAO Continue post op care per CLIFFORD MERLOS APRN Mar 08, 2021 11:55 ALICE LOVE MD Mar 08, 2021 20:27
[2021-03-08] MEDS: ACETAMINOPHEN 325 MG TABLET. PO PRN (12:34)
--- NOTE | 2021-03-08 14:49 | NUR ---
SS following up with discharge planning. SS reviewed pt chart and discussed with pt RN. Pt is currently requiring oxygen at two liters nasal canula. COVID19 negative. Pt on Clinimix. Drain in place. Pt accepted at [facility], ; fax [phone]. No bed available today. Per [facility], bed will be available tomorrow. SS will continue to follow for discharge planning.
[2021-03-08 15:00] VITALS: BP 161/75
[2021-03-08] MEDS ORDERED: LISINOPRIL 20 MG TABLET PO ONE (15:00)
[2021-03-08] MEDS: ENOXAPARIN 40 MG/0.4 ML SYRINGE. SQ SCH (17:33)
--- NOTE | 2021-03-08 19:30 | NUR ---
Pt in bed without c/o pain assessment completed vss poc explained call light in reach will resume care and continue to monitor pt.
[2021-03-08 19:33] VITALS: BP 173/67
[2021-03-08] MEDS: INSULIN GLARGINE SYRINGE. SQ SCH (21:31)
[2021-03-08 23:00] VITALS: BP 151/63
[2021-03-09] MEDS: NITROGLYCERIN OINT 1 GM PACKET. TP SCH ×4 (00:24→17:18)
[2021-03-09 03:00] VITALS: BP 162/67
[2021-03-09] MEDS: AA 4.25 %/CALCIUM/LYTES/D5W 1,000 ML IV SCH ×2 (03:28→16:00)
[2021-03-09 07:00] VITALS: BP 164/72
[2021-03-09] MEDS: INSULIN LISPRO 300 UNITS/3 ML VIAL. SQ SCH ×3 (07:30→16:30)
[2021-03-09] MEDS: BUDESONIDE 0.5 MG/2 ML NEBU. NEB SCH (07:58)
[2021-03-09] MEDS: IPRATROPIUM BROMIDE 0.5 MG/2.5 ML NEBU. NEB SCH ×4 (07:58→15:35)
[2021-03-09 08:01] LABS: BASO % 1 % (0-3); EOS # 0.1 x10^3/uL (0.0-0.7); EOS % 2 % (0-3); HEMATOCRIT 29.7 % (36.0-47.0); HEMOGLOBIN 9.9 g/dL (12.0-15.5); LYMPH # 0.6 x10^3/uL (1.0-4.8); LYMPH % 11 % (24-48); MEAN CORPUSCULAR HEMOGLOBIN 31 pg (25-35); MEAN CORPUSCULAR HGB CONC 33 g/dL (31-37); MEAN CORPUSCULAR VOLUME 94 fL (79-100); MONO # 0.3 x10^3/uL (0.0-1.1); MONO % 6 % (0-9); NEUT # 4.4 x10^3/uL (1.8-7.7); NEUT % 81 % (31-73); PLATELET COUNT 127 x10^3/uL (140-400); RED BLOOD COUNT 3.18 x10^6/uL (3.50-5.40); RED CELL DISTRIBUTION WIDTH 18.4 % (11.5-14.5); WHITE BLOOD COUNT 5.4 x10^3/uL (4.0-11.0)
[2021-03-09] MEDS: ASCORBIC ACID 500 MG TABLET PO SCH (08:40)
[2021-03-09] MEDS: ASPIRIN ENTERIC COATED 81 MG TABLET.DR. PO SCH (08:40)
[2021-03-09] MEDS: AMOXICILLIN/K CLAV 875/125MG TABLET. PO SCH (08:41)
[2021-03-09] MEDS: FAMOTIDINE 20 MG TABLET. PO SCH (08:41)
[2021-03-09] MEDS: METOPROLOL TART IMMED RELEASE 50 MG TABLET. PO SCH (08:41)
[2021-03-09] MEDS: LACTOBACILLUS RHAMNOSUS GG 1 CAPSULE. PO SCH (08:47)
[2021-03-09 08:48] LABS: CALCIUM 8.4 mg/dL (8.5-10.1); CREATININE 0.5 mg/dL (0.6-1.0); GFR 119.6; POTASSIUM 4.1 mmol/L (3.5-5.1)
[2021-03-09] MEDS: MULTIVITAMIN with MINERAL TABLET. PO SCH (08:48)
[2021-03-09] MEDS ORDERED: predniSONE 20 MG TABLET PO SCH (09:00)
[2021-03-09] MEDS ORDERED: LISINOPRIL 20 MG TABLET PO SCH (09:00)
--- NOTE | 2021-03-09 09:49 | PDOC ---
SURGICAL PROGRESS NOTE DATE: 03/09/21 TIME: 09:48 Subjective no complaints this AM Vital Signs Vital Signs Date Time Temp Pulse Resp B/P (MAP) Pulse Ox O2 Delivery O2 Flow Rate FiO2 03/09/21 08:48 80 164/72 03/09/21 08:00 Nasal Cannula 2.0 03/09/21 08:00 100 03/09/21 07:00 98.2 20 98.2 I&O Intake and Output 03/09/21 07:00 Intake Total 510 ml Output Total 800 ml Balance -290 ml Intake Oral 510 ml Output Urine Total 800 ml # Bowel Movements 1 General: Cooperative, No acute distress Abdomen: Soft, Other (incision healing, drain in place) Labs Laboratory Tests Test 03/07/21 11:54 03/07/21 16:32 03/07/21 21:21 03/07/21 21:55 Glucose (Fingerstick) 88 mg/dL (70-99) 379 mg/dL (70-99) 44 mg/dL (70-99) 124 mg/dL (70-99) Test 03/08/21 03:35 03/08/21 07:27 03/08/21 12:03 03/08/21 16:30 White Blood Count 4.4 x10^3/uL (4.0-11.0) Red Blood Count 2.81 x10^6/uL (3.50-5.40) Hemoglobin 8.6 g/dL (12.0-15.5) Hematocrit 26.1 % (36.0-47.0) Mean Corpuscular Volume 93 fL (79-100) Mean Corpuscular Hemoglobin 31 pg (25-35) Mean Corpuscular Hemoglobin Concent 33 g/dL (31-37) Red Cell Distribution Width 17.3 % (11.5-14.5) Platelet Count 137 x10^3/uL (140-400) Neutrophils (%) (Auto) 78 % (31-73) Lymphocytes (%) (Auto) 12 % (24-48) Monocytes (%) (Auto) 8 % (0-9) Eosinophils (%) (Auto) 2 % (0-3) Basophils (%) (Auto) 1 % (0-3) Neutrophils # (Auto) 3.4 x10^3/uL (1.8-7.7) Lymphocytes # (Auto) 0.5 x10^3/uL (1.0-4.8) Monocytes # (Auto) 0.3 x10^3/uL (0.0-1.1) Eosinophils # (Auto) 0.1 x10^3/uL (0.0-0.7) Basophils # (Auto) 0.0 x10^3/uL (0.0-0.2) Sodium Level 138 mmol/L (136-145) Potassium Level 3.5 mmol/L (3.5-5.1) Chloride Level 104 mmol/L (98-107) Carbon Dioxide Level 29 mmol/L (21-32) Anion Gap 5 (6-14) Blood Urea Nitrogen 13 mg/dL (7-20) Creatinine 0.5 mg/dL (0.6-1.0) Estimated GFR (Cockcroft-Gault) 119.6 Glucose Level 87 mg/dL (70-99) Calcium Level 7.6 mg/dL (8.5-10.1) Glucose (Fingerstick) 100 mg/dL (70-99) 170 mg/dL (70-99) 216 mg/dL (70-99) Test 03/08/21 20:37 03/09/21 06:20 03/09/21 07:51 Glucose (Fingerstick) 149 mg/dL (70-99) 123 mg/dL (70-99) White Blood Count 5.4 x10^3/uL (4.0-11.0) Red Blood Count 3.18 x10^6/uL (3.50-5.40) Hemoglobin 9.9 g/dL (12.0-15.5) Hematocrit 29.7 % (36.0-47.0) Mean Corpuscular Volume 94 fL (79-100) Mean Corpuscular Hemoglobin 31 pg (25-35) Mean Corpuscular Hemoglobin Concent 33 g/dL (31-37) Red Cell Distribution Width 18.4 % (11.5-14.5) Platelet Count 127 x10^3/uL (140-400) Neutrophils (%) (Auto) 81 % (31-73) Lymphocytes (%) (Auto) 11 % (24-48) Monocytes (%) (Auto) 6 % (0-9) Eosinophils (%) (Auto) 2 % (0-3) Basophils (%) (Auto) 1 % (0-3) Neutrophils # (Auto) 4.4 x10^3/uL (1.8-7.7) Lymphocytes # (Auto) 0.6 x10^3/uL (1.0-4.8) Monocytes # (Auto) 0.3 x10^3/uL (0.0-1.1) Eosinophils # (Auto) 0.1 x10^3/uL (0.0-0.7) Basophils # (Auto) 0.0 x10^3/uL (0.0-0.2) Sodium Level 139 mmol/L (136-145) Potassium Level 4.1 mmol/L (3.5-5.1) Chloride Level 104 mmol/L (98-107) Carbon Dioxide Level 26 mmol/L (21-32) Anion Gap 9 (6-14) Blood Urea Nitrogen 15 mg/dL (7-20) Creatinine 0.5 mg/dL (0.6-1.0) Estimated GFR (Cockcroft-Gault) 119.6 Glucose Level 111 mg/dL (70-99) Calcium Level 8.4 mg/dL (8.5-10.1) Laboratory Tests Test 03/08/21 12:03 03/08/21 16:30 03/08/21 20:37 03/09/21 06:20 Glucose (Fingerstick) 170 mg/dL (70-99) 216 mg/dL (70-99) 149 mg/dL (70-99) White Blood Count 5.4 x10^3/uL (4.0-11.0) Red Blood Count 3.18 x10^6/uL (3.50-5.40) Hemoglobin 9.9 g/dL (12.0-15.5) Hematocrit 29.7 % (36.0-47.0) Mean Corpuscular Volume 94 fL (79-100) Mean Corpuscular Hemoglobin 31 pg (25-35) Mean Corpuscular Hemoglobin Concent 33 g/dL (31-37) Red Cell Distribution Width 18.4 % (11.5-14.5) Platelet Count 127 x10^3/uL (140-400) Neutrophils (%) (Auto) 81 % (31-73) Lymphocytes (%) (Auto) 11 % (24-48) Monocytes (%) (Auto) 6 % (0-9) Eosinophils (%) (Auto) 2 % (0-3) Basophils (%) (Auto) 1 % (0-3) Neutrophils # (Auto) 4.4 x10^3/uL (1.8-7.7) Lymphocytes # (Auto) 0.6 x10^3/uL (1.0-4.8) Monocytes # (Auto) 0.3 x10^3/uL (0.0-1.1) Eosinophils # (Auto) 0.1 x10^3/uL (0.0-0.7) Basophils # (Auto) 0.0 x10^3/uL (0.0-0.2) Sodium Level 139 mmol/L (136-145) Potassium Level 4.1 mmol/L (3.5-5.1) Chloride Level 104 mmol/L (98-107) Carbon Dioxide Level 26 mmol/L (21-32) Anion Gap 9 (6-14) Blood Urea Nitrogen 15 mg/dL (7-20) Creatinine 0.5 mg/dL (0.6-1.0) Estimated GFR (Cockcroft-Gault) 119.6 Glucose Level 111 mg/dL (70-99) Calcium Level 8.4 mg/dL (8.5-10.1) Test 03/09/21 07:51 Glucose (Fingerstick) 123 mg/dL (70-99) Problem List plan for select today Justicifation of Admission Dx: Justifications for Admission: Justification of Admission Dx: Yes LELA MARIE TECHNICAL MANAGER Mar 09, 2021 09:49
--- NOTE | 2021-03-09 10:12 | PDOC3 ---
Discharge Summary Visit Information Date of Admission: Feb 13, 2021 Date of Discharge: Mar 09, 2021 Brief Hospital Course Allergies Allergies Coded Allergies Type Severity Reaction Last Updated Verified adhesive tape Allergy Intermediate 02/13/21 Yes Vital Signs Vital Signs Date Time Temp Pulse Resp B/P (MAP) Pulse Ox O2 Delivery O2 Flow Rate FiO2 03/09/21 08:48 80 164/72 03/09/21 08:00 Nasal Cannula 2.0 03/09/21 08:00 100 03/09/21 07:00 98.2 20 98.2 Lab Results Laboratory Tests Test 03/07/21 11:54 03/07/21 16:32 03/07/21 21:21 03/07/21 21:55 Glucose (Fingerstick) 88 mg/dL (70-99) 379 mg/dL (70-99) 44 mg/dL (70-99) 124 mg/dL (70-99) Test 03/08/21 03:35 03/08/21 07:27 03/08/21 12:03 03/08/21 16:30 White Blood Count 4.4 x10^3/uL (4.0-11.0) Red Blood Count 2.81 x10^6/uL (3.50-5.40) Hemoglobin 8.6 g/dL (12.0-15.5) Hematocrit 26.1 % (36.0-47.0) Mean Corpuscular Volume 93 fL (79-100) Mean Corpuscular Hemoglobin 31 pg (25-35) Mean Corpuscular Hemoglobin Concent 33 g/dL (31-37) Red Cell Distribution Width 17.3 % (11.5-14.5) Platelet Count 137 x10^3/uL (140-400) Neutrophils (%) (Auto) 78 % (31-73) Lymphocytes (%) (Auto) 12 % (24-48) Monocytes (%) (Auto) 8 % (0-9) Eosinophils (%) (Auto) 2 % (0-3) Basophils (%) (Auto) 1 % (0-3) Neutrophils # (Auto) 3.4 x10^3/uL (1.8-7.7) Lymphocytes # (Auto) 0.5 x10^3/uL (1.0-4.8) Monocytes # (Auto) 0.3 x10^3/uL (0.0-1.1) Eosinophils # (Auto) 0.1 x10^3/uL (0.0-0.7) Basophils # (Auto) 0.0 x10^3/uL (0.0-0.2) Sodium Level 138 mmol/L (136-145) Potassium Level 3.5 mmol/L (3.5-5.1) Chloride Level 104 mmol/L (98-107) Carbon Dioxide Level 29 mmol/L (21-32) Anion Gap 5 (6-14) Blood Urea Nitrogen 13 mg/dL (7-20) Creatinine 0.5 mg/dL (0.6-1.0) Estimated GFR (Cockcroft-Gault) 119.6 Glucose Level 87 mg/dL (70-99) Calcium Level 7.6 mg/dL (8.5-10.1) Glucose (Fingerstick) 100 mg/dL (70-99) 170 mg/dL (70-99) 216 mg/dL (70-99) Test 03/08/21 20:37 03/09/21 06:20 03/09/21 07:51 Glucose (Fingerstick) 149 mg/dL (70-99) 123 mg/dL (70-99) White Blood Count 5.4 x10^3/uL (4.0-11.0) Red Blood Count 3.18 x10^6/uL (3.50-5.40) Hemoglobin 9.9 g/dL (12.0-15.5) Hematocrit 29.7 % (36.0-47.0) Mean Corpuscular Volume 94 fL (79-100) Mean Corpuscular Hemoglobin 31 pg (25-35) Mean Corpuscular Hemoglobin Concent 33 g/dL (31-37) Red Cell Distribution Width 18.4 % (11.5-14.5) Platelet Count 127 x10^3/uL (140-400) Neutrophils (%) (Auto) 81 % (31-73) Lymphocytes (%) (Auto) 11 % (24-48) Monocytes (%) (Auto) 6 % (0-9) Eosinophils (%) (Auto) 2 % (0-3) Basophils (%) (Auto) 1 % (0-3) Neutrophils # (Auto) 4.4 x10^3/uL (1.8-7.7) Lymphocytes # (Auto) 0.6 x10^3/uL (1.0-4.8) Monocytes # (Auto) 0.3 x10^3/uL (0.0-1.1) Eosinophils # (Auto) 0.1 x10^3/uL (0.0-0.7) Basophils # (Auto) 0.0 x10^3/uL (0.0-0.2) Sodium Level 139 mmol/L (136-145) Potassium Level 4.1 mmol/L (3.5-5.1) Chloride Level 104 mmol/L (98-107) Carbon Dioxide Level 26 mmol/L (21-32) Anion Gap 9 (6-14) Blood Urea Nitrogen 15 mg/dL (7-20) Creatinine 0.5 mg/dL (0.6-1.0) Estimated GFR (Cockcroft-Gault) 119.6 Glucose Level 111 mg/dL (70-99) Calcium Level 8.4 mg/dL (8.5-10.1) Laboratory Tests Test 03/08/21 12:03 03/08/21 16:30 03/08/21 20:37 03/09/21 06:20 Glucose (Fingerstick) 170 mg/dL (70-99) 216 mg/dL (70-99) 149 mg/dL (70-99) White Blood Count 5.4 x10^3/uL (4.0-11.0) Red Blood Count 3.18 x10^6/uL (3.50-5.40) Hemoglobin 9.9 g/dL (12.0-15.5) Hematocrit 29.7 % (36.0-47.0) Mean Corpuscular Volume 94 fL (79-100) Mean Corpuscular Hemoglobin 31 pg (25-35) Mean Corpuscular Hemoglobin Concent 33 g/dL (31-37) Red Cell Distribution Width 18.4 % (11.5-14.5) Platelet Count 127 x10^3/uL (140-400) Neutrophils (%) (Auto) 81 % (31-73) Lymphocytes (%) (Auto) 11 % (24-48) Monocytes (%) (Auto) 6 % (0-9) Eosinophils (%) (Auto) 2 % (0-3) Basophils (%) (Auto) 1 % (0-3) Neutrophils # (Auto) 4.4 x10^3/uL (1.8-7.7) Lymphocytes # (Auto) 0.6 x10^3/uL (1.0-4.8) Monocytes # (Auto) 0.3 x10^3/uL (0.0-1.1) Eosinophils # (Auto) 0.1 x10^3/uL (0.0-0.7) Basophils # (Auto) 0.0 x10^3/uL (0.0-0.2) Sodium Level 139 mmol/L (136-145) Potassium Level 4.1 mmol/L (3.5-5.1) Chloride Level 104 mmol/L (98-107) Carbon Dioxide Level 26 mmol/L (21-32) Anion Gap 9 (6-14) Blood Urea Nitrogen 15 mg/dL (7-20) Creatinine 0.5 mg/dL (0.6-1.0) Estimated GFR (Cockcroft-Gault) 119.6 Glucose Level 111 mg/dL (70-99) Calcium Level 8.4 mg/dL (8.5-10.1) Test 03/09/21 07:51 Glucose (Fingerstick) 123 mg/dL (70-99) Brief Hospital Course Ms Dyson is a 75yo female w/ PMHx rheumatoid arthritis, depression, hypertension, breast cancer and prior colectomy who was admitted for a large ventral hernia repair which she underwent on February 13. Had done really well after surgery initially she was actually planning to start trialing liquids, but was transferred to ICU for concern for sepsis and new onset A. fib with RVR requiring a Cardizem drip, cardiology, Infectious Disease and pulmonary were consulted. Patient started on broad-spectrum antibiotics. Pulmonary following. 02/16: ICU today. Her condition has significantly improved since last night. She is awake alert and oriented able to answer questions says pain is under control. Blood pressure holding steady. Remains on Cardizem drip. Continue antibiotics today. Requesting to drink if she can, will defer this decision to surgery. 02/17: She is complaining about some shortness of breath but is feeling comfortable. We will try 1 dose of Lasix today based upon chest x-ray. 02/18: Evaluated at bedside. Patient resting in bed. Appears to be in normal sinus rhythm. No major clinical changes otherwise. 02/19: Evaluated at bedside. Patient resting in bed pursed lip breathing D/W XAVIER/ PRECISION THREAD GRINDER OPERATOR, ABG pending d/w in room k 5.8 on tpn pharmacy to adjust k in tpn 02/20: Evaluated at bedside. D/W XAVIER/ PRECISION THREAD GRINDER OPERATOR, ABG pending d/w in room k 5.8 on tpn pharmacy to adjust k in tpn 02/21: Transferred from ICU overnight. Still very confused. Family says she said hello. Moving all 4 extremities. Afebrile. NA 156. WBC 19.2, Hb 8.1. D/w family bedside. 02/22: NA 158. Afebrile. Asking for coffee. Still requiring 3L NCO2. D/w surgery given her deconditioning and need for IV nutrition she would need likely ref erral to LTACH. 02/23: NA 162. Afebrile. More alert. Asking for food. No BM. Very weak, d/w beside to consider LTACH. Chest radiograph with PICC crossing midline. Diet advanced 02/24: Afebrile overnight. Feeling a little worse. She is taking p.o. had some juice had a bowel movement. Chest radiograph revealed PICC has become malpositioned. IV on hold. Afebrile. NA 137. Feels a little hot. Has been upset about PICC and making sure she is getting her medications. Reassured she can appropriately medicated by mouth. She is asking for some cold to drink. Noted she still on thickened liquids 02/26 Patient evaluated at bedside. Still frustrated about PICC line, imaging shows it is in the left subclavian. From medical standpoint patient with hype rnatremia of 162 today. Still mentating well. Nephrology following. Defer rest to primary surgical team 02/27 Patient evaluated at bedside, she does remain very weak still. 6 min walk ordered but question if she will be able to complete. Labs from today pending still. 02/28 Patient evaluated and examined at bedside. Pretty lethargic this morning informed by bedside nurse she had a hemoglobin below 7 along with an elevated temperature to 100. Patient also was made n.p.o. today after speech evaluation concerned she is aspirating. Contacted surgical team who graciously evaluated the patient. Order chest x-ray patient does appear to have some fluid overload, discussed the case with Dr. Caro who recommended trying a dose of IV Lasix given her fluid overload on exam. Agreed with continuing antibiotics. We will continue to closely monitor. If she should worsen consider ICU transfer. 03/01 Patient evaluated and examined at bedside. She definitely does appear better but still relatively lethargic. Giving another dose of Lasix this morning as she is clinically fluid overloaded still. Remains n.p.o. per speech. Given leukocytosis and fevers will reconsult infectious disease. 03/02 Patient evaluated examined at bedside. She reports being a little bit better but is still has a pretty fragile respiratory status. Continue as needed diuresing along with antibiotics. Cardiology and infectious disease following. Continue to Dapto Zosyn blood cultures no growth today. Diuresis needed. Patient remains very very weak and family still adamant about bringing her home after discharge. Given her current status this really would not be safe. 03/03 Patient evaluated and examined at bedside. Family finally agreeable to SNF placement. Patient improving with Dapto and Zosyn continue this. Remains n.p.o. continue with TPN. Speech eval's per speech therapy PT OT likely discharge early next week 03/04 Patient evaluated and examined at bedside. She definitely has improved says her breathing is much better. Okay to stop Dapto continue Zosyn. Blood cultures no growth to date. Hopeful for another speech eval sometime this week continue TPN in the meantime. 03/05: Low-grade fever this morning (T-max 100.2 F), suspect due to basilar atelectasis her history of aspiration pneumonia. Patient states she feels better, and denies any significant abdominal pain. Work with ST and recommended dysphagia diet. Encouraged working with PT/OT as much as tolerable. Repeat blood cultures with no growth to date. 03/06: Afebrile, still breathing on 2 L nasal cannula. Abdominal pain remains well controlled. Final blood cultures with no growth. Continue IV antibiotics, per ID. Tolerating dysphagia diet. Discussed with social media campaign manager, [facility], and [facility] could happen today or tomorrow. Discussed with speech therapy, will try to complete video swallow study today [facility] to [facility] pending insurance authorization. 03/07: Patient still breathing 2 L nasal cannula. She reports some slight abdominal pain and difficulty tolerating her diet this morning. She reports pain with liquids that has been present for the past several days; this also is a surprise to patient's . Video swallow study yesterday showed no laryngeal penetration or aspiration. Will resume TPN. 03/08: Patient with complaint of some odynophagia and nausea. Afebrile, on 2 L nasal cannula. Clinimix was resumed due to concerns of inadequate nutrition. Breathing is improved, so we will discontinue Solu-Medrol and placed on oral prednisone with taper. Accepted at [facility] awaiting bed to open. 03/09: Patient doing better today. Still breathing on 2 L nasal cannula. She has been approved [facility]. Greater than 30-minute spent managing discharge this patient. Discharge Information Condition at Discharge: Stable Disposition/Orders: D/C to Another Facility Scheduled Calcium Carbonate/Vitamin D3 (Calcium 600 + Vit D 800 Tab) 1 Each Tablet, 1 TAB PO BID for supplement for 30 Days, #60 Ref 0 (Reported) Entered as Reported by: DIANN TORRES on 02/15/211012 Last Action: New Order on 02/15/211012 by DIANN TORRES Citalopram Hydrobromide (Celexa) 10 Mg Tablet, 1 TAB PO DAILY for depression, #30 Ref 2 (Reported) Entered as Reported by: DIANN TORRES on 02/15/211012 Last Action: New Order on 02/15/211012 by DIANN TORRES Cyanocobalamin (Vitamin B-12) (Vitamin B12) 2,500 Mcg Tablet, 500 MG PO BID for supplement, (Reported) Entered as Reported by: DIANN TORRES on 02/15/211012 Last Action: New Order on 02/15/211012 by DIANN TORRES Denosumab (Prolia) 60 Mg/1 Ml Disp.syrin, 1 SYR SQ [id number] for for bones- every 6 months for 1 Days, #1 Ref 0 (Reported) Entered as Reported by: DIANN TORRES on 02/15/211012 Last Action: New Order on 02/15/211012 by DIANN TORRES Duloxetine Hcl (Cymbalta) 30 Mg Capsule.dr, 1 CAP PO DAILY for depression, #30 Ref 5 (Reported) Entered as Reported by: DIANN TORRES on 02/15/211012 Last Action: New Order on 02/15/211012 by DIANN TORRES Esomeprazole Magnesium (Nexium Capsule) 40 Mg Capsule.dr, 1 CAP PO BID for acid reflux, #90 Ref 3 (Reported) Entered as Reported by: DIANN TORRES on 02/15/211012 Last Action: New Order on 02/15/211012 by DIANN TORRES Folic Acid (Folic Acid) 0.8 Mg Tablet, 3 MG PO DAILY for SUPPLEMENT, (Reported) Entered as Reported by: DIANN TORRES on 02/15/211012 Last Action: New Order on 02/15/211012 by DIANN TORRES Leflunomide (Leflunomide) 10 Mg Tablet, 10 MG PO DAILY for ARTHRITIS, (Reported) Entered as Reported by: DIANN TORRES on 02/15/211012 Last Action: New Order on 02/15/211012 by DIANN TORRES Lisinopril (Lisinopril) 10 Mg Tablet, 1 TAB PO DAILY for blood pressure, #30 Ref 5 (Reported) Entered as Reported by: DIANN TORRES on 02/15/211012 Last Action: New Order on 02/15/211012 by DIANN TORRES Metoprolol Tartrate (Metoprolol Tartrate) 25 Mg Tablet, 1 TAB PO DAILY for blood pressure, #180 Ref 1 (Reported) Entered as Reported by: DIANN TORRES on 02/15/211012 Last Action: New Order on 02/15/211012 by DIANN TORRES Prednisone (Prednisone) 2.5 Mg Tablet, 5 MG PO DAILY for breathing, (Reported) Entered as Reported by: DIANN TORRES on 02/15/211012 Last Action: New Order on 02/15/211012 by DIANN TORRES Wheat Dextrin (Benefiber) 1 Each Powd.pack, 1 EACH PO DAILY for consistency, (Reported) Entered as Reported by: DIANN TORRES on 02/15/211012 Last Action: New Order on 02/15/211012 by DIANN TORRES Scheduled PRN Alprazolam (Alprazolam) 0.25 Mg Tablet, 0.25 MG PO PRN DAILY PRN for ANXIETY / AGITATION, Ref 0 (Reported) Entered as Reported by: DIANN TORRES on 02/15/211012 Last Action: New Order on 02/15/211012 by DIANN TORRES Gabapentin (Gabapentin) 100 Mg Capsule, 100 MG PO PRN BID PRN for PAIN, (Reported) Entered as Reported by: DIANN TORRES on 02/15/211012 Last Action: New Order on 02/15/211012 by DIANN TORRES Hydrocodone Bit/Acetaminophen (Hydrocodone-Apap 5-325 ) 1 Tab Tablet, 1 TAB PO PRN BID PRN for PAIN, Ref 0 (Reported) Entered as Reported by: DIANN TORRES on 02/15/211012 Last Action: New Order on 02/15/211012 by DIANN TORRES Justicifation of Admission Dx: Justifications for Admission: Justification of Admission Dx: Yes IVANA SPRAGUE MD Mar 09, 2021 10:12
[2021-03-09 11:00] VITALS: BP 163/70
--- NOTE | 2021-03-09 11:30 | NUR ---
SS following up with discharge planning. SS reviewed pt chart and discussed with pt RN. Pt is currently requiring oxygen at two liters nasal canula. COVID19 negative. Pt on Clinimix. PT/OT recommended residential unit. Pt accepted at [facility], ; fax [phone]. Bed available today. Discharge orders received and phoned and faxed to [facility]. Pt will discharge today and go to [facility] at 1830 via [facility] ambulance. Pt, pt's spouse, and pt's RN notified. Packet and ambulance form on the chart.
[2021-03-09 15:00] VITALS: BP 133/58
[2021-03-09] MEDS: ENOXAPARIN 40 MG/0.4 ML SYRINGE. SQ SCH (17:16)
[2021-03-09 19:00] VITALS: BP 120/57
--- NOTE | 2021-03-09 19:50 | NUR ---
Pt dc to [facility] per [facility] tele monitor dc , pt discharged with Barraza catheter in place pt accompanied by .
[2021-03-19] MEDS ORDERED: METO25TA4 IVP (12:46)
[2021-03-19] MEDS ORDERED: [UNRECOGNIZED DRUG - OTHER] (12:46)
[2021-03-19] MEDS ORDERED: LISI-130 PO (12:56)
[2021-03-19] MEDS ORDERED: PANT40VI IV (12:56)
[2021-03-19] MEDS ORDERED: NYST5000 PO (12:56)
[2021-03-19] MEDS ORDERED: METH40VI IJ (12:56)
[2021-03-19] MEDS ORDERED: INSU100V8 SQ (12:56)
[2021-03-19] MEDS ORDERED: NITR1OIN TD (12:56)
[2021-03-19] MEDS ORDERED: INSU100V38 SQ (12:56)
[2021-03-19] MEDS ORDERED: MULT-245 PO (12:56)
== END 2021-03-09 19:50 | DRG 853 ==
LOC: SURG 10:23 → 4 NORTH 17:20 → 6 SOUTH 02-15 21:15 → 1 WEST ICU 02-15 23:59 → 6 SOUTH 02-20 19:55
PROVIDERS: ADMIT Surgery; ATTEND Surgery
PROC: 5A09357 Assistance with Respiratory Ventilation, Less than 24 Consecutive Hours, Continuous Positive Airway Pressure (ICD-10-PCS; 2021-02-13)
PROC: 0WUF0JZ Supplement Abdominal Wall with Synthetic Substitute, Open Approach (ICD-10-PCS; principal; 2021-02-13 12:00)
PROC: 02HV33Z Insertion of Infusion Device into Superior Vena Cava, Percutaneous Approach (ICD-10-PCS; 2021-02-14)
PROC: 30233N1 Transfusion of Nonautologous Red Blood Cells into Peripheral Vein, Percutaneous Approach (ICD-10-PCS; 2021-02-28)
DX: A41.9 Sepsis, unspecified organism (principal); J96.01 Acute respiratory failure with hypoxia; G92.9 Unspecified toxic encephalopathy; I50.33 Acute on chronic diastolic (congestive) heart failure; J69.0 Pneumonitis due to inhalation of food and vomit; E46 Unspecified protein-calorie malnutrition; E87.0 Hyperosmolality and hypernatremia; E87.1 Hypo-osmolality and hyponatremia; I48.92 Unspecified atrial flutter; J44.1 Chronic obstructive pulmonary disease with (acute) exacerbation; J84.9 Interstitial pulmonary disease, unspecified; N17.9 Acute kidney failure, unspecified; K43.9 Ventral hernia without obstruction or gangrene; C50.919 Malignant neoplasm of unspecified site of unspecified female breast; D64.9 Anemia, unspecified; D69.6 Thrombocytopenia, unspecified; E87.5 Hyperkalemia; F17.201 Nicotine dependence, unspecified, in remission; F32.9 Major depressive disorder, single episode, unspecified; F41.9 Anxiety disorder, unspecified; I11.0 Hypertensive heart disease with heart failure; I16.0 Hypertensive urgency; I48.91 Unspecified atrial fibrillation; I49.3 Ventricular premature depolarization; K21.9 Gastro-esophageal reflux disease without esophagitis; M06.9 Rheumatoid arthritis, unspecified; M19.90 Unspecified osteoarthritis, unspecified site; T38.0X5A Adverse effect of glucocorticoids and synthetic analogues, initial encounter; Z79.899 Other long term (current) drug therapy; Z85.3 Personal history of malignant neoplasm of breast; Z87.01 Personal history of pneumonia (recurrent); Z90.49 Acquired absence of other specified parts of digestive tract; Z90.710 Acquired absence of both cervix and uterus; Z92.3 Personal history of irradiation; Z93.3 Colostomy status
CPT/HCPCS: 36415; 36430; 36569; 36600; 71045; 74018; 74230; 80048; 80053; 81001; 82550; 82805; 82962; 83605; 83735; 83880; 84100; 84443; 84478; 85007; 85025; 85027; 86140; 86850; 86900; 86901; 86920; 87040; 87426; 93005; 93306; 94618; 94640; 94760; A4364; A4452; A4930; A6402; C1769; C1781; C1892; J0330; J0360; J0610; J0690; J0692; J0878; J1100; J1160; J1170; J1650; J1815; J1885; J1940; J2020; J2060; J2270; J2310; J2405; J2543; J2704; J2710; J2920; J2930; J2997; J3010; J3370; J3475; J3480; J3490; J7030; J7040; J7050; J7060; J7512; P9016; 92526-GN; 92610-GN; 92611-GN; 97110-GP; 97116-GP; 97530-GO; 97530-GP; 97535-GO; G0378; J7613; J7626; J7644